=== PATIENT | male | born 1965 | race Caucasian/White ===

== ENCOUNTER → 2020-08-18 13:16 | Outpatient (BNVA) | payer MEDICARE, MEDICAID, SELFPAY | PROVIDERS: PCP Pediatrics; Referring Provider Internal Medicine; Visit Provider Internal Medicine | DX: E05.00 Thyrotoxicosis with diffuse goiter without thyrotoxic crisis or storm (principal); I10 Essential (primary) hypertension; M25.472 Effusion, left ankle | CPT/HCPCS: 99204 ==

== ENCOUNTER 2020-08-19 12:06 | Outpatient (CLI) | payer MEDICARE, MEDICAID, SELFPAY ==
--- NOTE | 2020-08-19 13:30 | USCV_ITS ---
Matthew Barrios Age: 55 Gender: M : 1965 Exam Date: 08/19/2020 12:11 Ordering Phys: Laverne Mcpherson MD Technologist: Bethany Crump [place] [facility] [place]: edema BP: / HR: 63 Rhythm: Sinus Technical Quality: Adequate MEASUREMENTS (Male / Female) Normal Values 2D ECHO LV Diastolic Diameter PLAX 4.7 cm 4.2 - 5.9 / 3.9 - 5.3 cm LV Systolic Diameter PLAX 3.1 cm IVS Diastolic Thickness 1.1 cm 0.6 - 1.0 / 0.6 - 0.9 cm IVS Systolic Thickness 1.7 cm LVPW Diastolic Thickness 0.8 cm 0.6 - 1.0 / 0.6 - 0.9 cm LVPW Systolic Thickness 1.5 cm LVOT Diameter 2.0 cm LV Ejection Fraction 2D Teich 62.3 % LV Ejection Fraction MOD 2C 66.9 % LV Ejection Fraction 2C AL 69.1 % LA Diameter 3.5 cm LA Width 2.9 cm LA Height 5.4 cm RA Width 3.4 cm RA Height 4.2 cm M-MODE LV Diastolic Diameter MM 4.9 cm 4.2 - 5.9 / 3.9 - 5.3 cm LV Systolic Diameter MM 3.4 cm LV Ejection Fraction MM Teich 57.2 % IVS Diastolic Thickness MM 0.5 cm 0.6 - 1.0 / 0.6 - 0.9 cm IVS Systolic Thickness MM 0.8 cm LVPW Diastolic Thickness MM 0.8 cm 0.6 - 1.0 / 0.6 - 0.9 cm LVPW Systolic Thickness MM 1.3 cm Aortic Annulus Diameter 2.4 cm LA Ao Ratio MM 1.6 MV E Point Septal Separation 0.3 cm DOPPLER AV Peak Velocity 196.0 cm/s LVOT Peak Velocity 105.0 cm/s AV Area Cont Eq vti 1.9 cm squared AV Area Cont Eq pk 1.7 cm squared MV Peak Velocity 98.0 cm/s MV Area PHT 3.3 cm squared Mitral E to A Ratio 1.1 MV E' Velocity 50.0 cm/s Mitral E to MV E' Ratio 12.6 Mitral E to LV E' Lateral Ratio 11.6 Mitral E to LV E' Septal Ratio 13.9 TR Peak Velocity 106.3 cm/s TR Peak Gradient 4.5 mmHg Right Atrial Pressure 3.0 mmHg Pulmonary Artery Systolic Pressu 7.5 mmHg PV Peak Velocity 87.3 cm/s RV Acceleration Time 0.1 s FINDINGS Left Ventricle Normal left ventricular cavity size. Normal left ventricular systolic function. No regional wall motion abnormalities. Left ventricular ejection fraction is estimated at 57 %. Normal diastolic function. Right Ventricle The right ventricle is normal in size and function. Right Atrium The right atrium is normal in size. Left Atrium The left atrium is normal in size. Mitral Valve Structurally normal mitral valve without significant stenosis or prolapse. There is no mitral regurgitation. Aortic Valve Severe aortic valve calcification. Moderate aortic valve stenosis, mean gradient 7.6 mmHg, LYUDMILA 1.9 cm squared. Trace aortic valve regurgitation. Tricuspid Valve Structurally normal tricuspid valve without significant stenosis or regurgitation. Pulmonary artery systolic pressure is normal. Pulmonic Valve Structurally normal pulmonic valve without significant stenosis. There is no pulmonic regurgitation. Pericardium Normal pericardium without effusion. Aorta Normal ascending aorta dimension. CONCLUSIONS 1-Normal left ventricular cavity size. Normal left ventricular systolic function. No regional wall motion abnormalities. Left ventricular ejection fraction is estimated at 57 %. Normal diastolic function. 2-Severe aortic valve calcification. Moderate aortic valve stenosis, mean gradient 7.6 mmHg, LYUDMILA 1.9 cm squared. Trace aortic valve regurgitation. 3-There is no pericardial effusion. 4-Pulmonary artery systolic pressure is within normal limits. 5-Right atrial pressure is around 5 mm of mercury. 6-Due to suboptimal image quality cannot compare it with prior study. Mitzi Hoffman MD (Electronically Signed) Final Date: 19 August 2020 17:33 S
== END 2020-08-19 12:07 | disposition home or self-care (01) ==
LOC: US 12:08
PROVIDERS: PCP Pediatrics; Visit Provider Internal Medicine
DX: R60.9 Edema, unspecified (principal); I35.0 Nonrheumatic aortic (valve) stenosis
CPT/HCPCS: 93306

== ENCOUNTER → 2020-10-05 09:13 | Outpatient (BNVA) | payer MEDICARE, MEDICAID, SELFPAY | PROVIDERS: PCP Pediatrics; Visit Provider Podiatrist Foot & Ankle Surgery | DX: M79.672 Pain in left foot (principal); I73.9 Peripheral vascular disease, unspecified | CPT/HCPCS: 73630 ==

== ENCOUNTER 2020-10-12 13:08 | Outpatient (CLI) | payer MEDICARE, MEDICAID, SELFPAY | END 2020-10-12 13:09 | disposition home or self-care (01) | LOC: WOUND 13:09 | PROVIDERS: PCP Pediatrics; Visit Provider Nurse Practitioner Family | DX: E11.621 Type 2 diabetes mellitus with foot ulcer (principal); L97.522 Non-pressure chronic ulcer of other part of left foot with fat layer exposed | CPT/HCPCS: 11042; 99214; L3260 ==

== ENCOUNTER 2020-10-19 08:45 | Outpatient (CLI) | payer MEDICARE, MEDICAID, SELFPAY | END 2020-10-19 08:46 | disposition home or self-care (01) | LOC: WOUND 08:46 | PROVIDERS: PCP Pediatrics; Visit Provider Nurse Practitioner Family | DX: E11.621 Type 2 diabetes mellitus with foot ulcer (principal); L97.522 Non-pressure chronic ulcer of other part of left foot with fat layer exposed | CPT/HCPCS: 11042 ==

== ENCOUNTER 2020-10-24 09:19 | Outpatient (CLI) | payer MEDICARE, MEDICAID, SELFPAY ==
--- NOTE | 2020-10-24 10:15 | USCV_ITS ---
Matthew Barrios Age: 55 Gender: M : 1965 Exam Date: 10/24/2020 09:51 Ordering Phys: Augie Andrade DPM Technologist: Krys Davis Exam Location: [facility] [place] Indication: HISTORY: DM TYPE 1. NON HEALING ULCER LT FOOT. RT LOWER LEG AMPUTATION PROCEDURES: The venous duplex Doppler examination of both lower extremities was performed in the standard fashion. The following venous structures were evaluated on the right leg. Rt CFV, Rt FV. Also the Rt. GSV was studied for reflux. The following venous structures were evaluated on the lt leg: Lt CGV, Rt. FV, Rt POP ,and Rt PTVs. The Lt GSP and Lt SSV were examined for reflux FINDINGS: Rt leg has BK amputation. No reflux seen in any vessel examined Echolucent areas in the subcutaneous tissue at the below-knee region on the left side CONCLUSIONS 1. No significant venous reflux either in the deep or superficial veins examined as above 2. No evidence of DVT. 3. Venous dimensions and the depth from the surface are as mentioned above. 4. Patient had below-knee amputation on the right side Dr James Woodall MD [facility] (Electronically Signed) Final Date: 24 October 2020 14:24 S
== END 2020-10-24 09:20 | disposition home or self-care (01) ==
LOC: RAD 09:22
PROVIDERS: PCP Pediatrics; Visit Provider Podiatrist Foot & Ankle Surgery
DX: I73.9 Peripheral vascular disease, unspecified (principal); L97.522 Non-pressure chronic ulcer of other part of left foot with fat layer exposed; Z89.511 Acquired absence of right leg below knee
CPT/HCPCS: 93970

== ENCOUNTER 2020-10-26 10:20 | Outpatient (CLI) | payer MEDICARE, MEDICAID, SELFPAY | END 2020-10-26 10:21 | disposition home or self-care (01) | LOC: WOUND 10:25 | PROVIDERS: PCP Pediatrics; Visit Provider Thoracic Surgery (Cardiothoracic Vascular Surgery) | DX: E11.621 Type 2 diabetes mellitus with foot ulcer (principal); L97.522 Non-pressure chronic ulcer of other part of left foot with fat layer exposed | CPT/HCPCS: G0463 ==

== ENCOUNTER 2020-10-27 10:25 | Outpatient (CLI) | payer MEDICARE, MEDICAID, SELFPAY ==
--- NOTE | 2020-10-27 11:15 | USCV_ITS ---
Matthew Barrios Age: 55 Gender: M : 1965 Exam Date: 10/27/2020 10:34 Ordering Phys: Augie Andrade DPM Technologist: Exam Location: [facility] [place] Indication: PAD RIGHT LEFT Brachial 165.00 mmHg Brachial 165.00 mmHg Pressure (mmHg) Waveform Pressure (mmHg) Waveform INCLUSION INTERN 97.00 DPA 49.00 Ankle/Brachial Index 0.59 Pre-Exercise Toe Pressure 49.00 Pre-Exercise Toe/Brachial Index 0.30 FINDINGS Right leg amputee Abnormal resting BOBO and TBI on the left side, 0.59 and 0.30 respectively. PVR waveforms showing loss of dicrotic notch CONCLUSIONS Features of moderate peripheral arterial disease on the left side with a resting BOBO of 0.59 and a TBI of 0.30 No similar previous studies are available for comparison Dr James Woodall MD [facility] (Electronically Signed) Final Date: 28 October 2020 14:08 S
== END 2020-10-27 10:26 | disposition home or self-care (01) ==
LOC: RAD 10:32
PROVIDERS: PCP Pediatrics; Visit Provider Podiatrist Foot & Ankle Surgery
DX: I73.9 Peripheral vascular disease, unspecified (principal)
CPT/HCPCS: 93923

== ENCOUNTER 2020-11-02 09:15 | Outpatient (CLI) | payer MEDICARE, MEDICAID, SELFPAY | END 2020-11-02 09:16 | disposition home or self-care (01) | LOC: WOUND 09:15 | PROVIDERS: PCP Pediatrics; Visit Provider Thoracic Surgery (Cardiothoracic Vascular Surgery) | DX: E11.621 Type 2 diabetes mellitus with foot ulcer (principal); L97.522 Non-pressure chronic ulcer of other part of left foot with fat layer exposed | CPT/HCPCS: 11042 ==

== ENCOUNTER 2020-11-09 08:55 | Outpatient (CLI) | payer MEDICARE, MEDICAID, SELFPAY | END 2020-11-09 08:56 | disposition home or self-care (01) | LOC: WOUND 08:58 | PROVIDERS: PCP Pediatrics; Visit Provider Thoracic Surgery (Cardiothoracic Vascular Surgery) | DX: E11.621 Type 2 diabetes mellitus with foot ulcer (principal); L97.522 Non-pressure chronic ulcer of other part of left foot with fat layer exposed | CPT/HCPCS: 11042 ==

== ENCOUNTER 2020-11-16 08:57 | Outpatient (CLI) | payer MEDICARE, MEDICAID, SELFPAY ==
[2020-11-16 09:46] VITALS: BMI 32.8
--- NOTE | 2020-11-16 10:40 | ECG_ITS ---
[facility] Test Date: 2020-11-16 Pat Name: Matthew Barrios Department: Room: Gender: Male Surg Nurse: : 1965 Requested By: Nader Fu Order Number: [id number] Yuliana MD: Nader Fu M.D. Interpretive Statements NAME OF STUDY: LEXISCAN SESTAMIBI STRESS TEST INDICATION: [Chest Pain, ] Procedure: At the baseline, the blood pressure was 151/70 mmHg, heart rate of 70 bpm. The electrocardiogram showed normal sinus rhythm, left axis deviation with normal ST and T's. The Lexiscan was infused over a duration of 20 seconds. A total of 0.4 mg of Lexiscan was infused. The stress phase was continued for a total of 5 minutes. Heart rate at the end of the stress phase was 79 bpm. Blood pressure was 157/62 mmHg. The EKG at peak infusion revealed sinus rhythm with no significant ST-T wave changes. Sestamibi was injected 20 seconds after the Lexiscan infusion. Blood pressure at the end of recovery phase was 163/91 mmHg with a heart rate of 77 bpm. EKG remained unchanged. Conclusion: 1. Normal EKG response to Lexiscan infusion. 2. No Lexiscan induced chest pain or cardiac arrhythmia. 3. Normal blood pressure and heart rate response. 4. Sestamibi/sestamibi perfusion scan pending; see separate report. Electronically Signed On 11-27-2020 13:49:06 [employer] CONSERVATION TEACHER by Nader Fu M.D. [id number]
--- NOTE | 2020-11-16 10:40 | NMCV_ITS ---
NM sherrie perf SPECT r/s* [id number] BarriosMatthew arango Age: 55 Gender: M : 1965 Exam Date: 11/16/2020 10:40 Ordering Phys: Nader Fu M.D ([email or web address]) Technologist: SHANNAN Jiménez Exam Location: [facility] Indications: CHEST PAIN STRESS TEST Please see separate stress test [facility] for full findings IMAGE PROTOCOL Rest/Stress 1 Lexiscan Day Radiopharmaceutical Dose (mCi) Administration Site Administered by Rest: Tc-99m 10.9 IV SHANNAN Jiménez Sestamibi Stress:Tc-99m 32.7 IV SHANNAN Walters Sestamibi Rest: 16-Nov-2020 60 Discovery 630 Stress: 16-Nov-2020 30 Discovery 630 0.4mg Lexiscan. Supine position only as patient was unable to lay prone. SPECT RESULTS Technical Quality: Excellent Raw Data Analysis: Normal Image Corrections: No attenuation or motion correction applied Summed Stress Score: 0 Summed Rest Score: 0 Summed Difference Score: 0 PERFUSION FINDINGS Small in size, mild in intensity reversible perfusion defect in inferior wall is seen. This represents ischemia and inferior wall. FUNCTIONAL RESULTS (calculated via Gated SPECT) Stress Image LV EF (%): 74 Stress EDV (mL):80 TID: 1 Stress ESV (mL):21 FUNCTIONAL FINDINGS: There is normal left ventricular systolic function. IMPRESSIONS 1. There is a small in size, mild in intensity reversible perfusion defect of inferior wall. This likely represents a small area of ischemia in RCA territory. 2. LV systolic function is normal. Nader Fu MD (Electronically Signed) Final Date: 16 November 2020 14:07 S
[2020-11-16 11:39] VITALS: BP 163/91; PULSE 77
== END 2020-11-16 08:58 | disposition home or self-care (01) ==
LOC: RAD 09:01 → CDL 09:46
PROVIDERS: PCP Pediatrics; Visit Provider Internal Medicine
DX: R07.9 Chest pain, unspecified (principal)
CPT/HCPCS: 78452; 93017; A9500

== ENCOUNTER 2020-11-23 10:28 | Outpatient (CLI) | payer MEDICARE, MEDICAID, SELFPAY | END 2020-11-23 10:29 | disposition home or self-care (01) | LOC: WOUND 10:29 | PROVIDERS: PCP Pediatrics; Visit Provider Thoracic Surgery (Cardiothoracic Vascular Surgery) | DX: E11.621 Type 2 diabetes mellitus with foot ulcer (principal); L97.522 Non-pressure chronic ulcer of other part of left foot with fat layer exposed | CPT/HCPCS: 11042 ==

== ENCOUNTER 2020-12-14 10:17 | Outpatient (CLI) | payer MEDICARE, MEDICAID, SELFPAY | END 2020-12-14 10:18 | disposition home or self-care (01) | LOC: WOUND 10:18 | PROVIDERS: PCP Pediatrics; Visit Provider Thoracic Surgery (Cardiothoracic Vascular Surgery) | DX: E11.621 Type 2 diabetes mellitus with foot ulcer (principal); L97.522 Non-pressure chronic ulcer of other part of left foot with fat layer exposed | CPT/HCPCS: 11042 ==

== ENCOUNTER 2020-12-21 10:23 | Outpatient (CLI) | payer MEDICARE, MEDICAID, SELFPAY | END 2020-12-21 10:24 | disposition home or self-care (01) | LOC: WOUND 10:25 | PROVIDERS: PCP Pediatrics; Visit Provider Thoracic Surgery (Cardiothoracic Vascular Surgery) | DX: E11.621 Type 2 diabetes mellitus with foot ulcer (principal); L97.522 Non-pressure chronic ulcer of other part of left foot with fat layer exposed | CPT/HCPCS: 11042 ==

== ENCOUNTER 2020-12-28 09:37 | Outpatient (CLI) | payer MEDICARE, MEDICAID, SELFPAY | END 2020-12-28 09:38 | disposition home or self-care (01) | LOC: WOUND 09:38 | PROVIDERS: PCP Pediatrics; Visit Provider Thoracic Surgery (Cardiothoracic Vascular Surgery) | DX: E11.621 Type 2 diabetes mellitus with foot ulcer (principal); L97.522 Non-pressure chronic ulcer of other part of left foot with fat layer exposed | CPT/HCPCS: 11042 ==

== ENCOUNTER 2021-01-11 09:00 | Outpatient (CLI) | payer MEDICARE, MEDICAID, SELFPAY | END 2021-01-11 09:01 | disposition home or self-care (01) | LOC: WOUND 09:05 | PROVIDERS: PCP Pediatrics; Visit Provider Thoracic Surgery (Cardiothoracic Vascular Surgery) | DX: E11.621 Type 2 diabetes mellitus with foot ulcer (principal); L97.522 Non-pressure chronic ulcer of other part of left foot with fat layer exposed | CPT/HCPCS: 11042 ==

== ENCOUNTER 2021-01-18 08:17 | Outpatient (CLI) | payer MEDICARE, MEDICAID, SELFPAY | END 2021-01-18 08:18 | disposition home or self-care (01) | LOC: WOUND 08:19 | PROVIDERS: PCP Pediatrics; Visit Provider Thoracic Surgery (Cardiothoracic Vascular Surgery) | DX: E11.621 Type 2 diabetes mellitus with foot ulcer (principal); L97.522 Non-pressure chronic ulcer of other part of left foot with fat layer exposed | CPT/HCPCS: 11042 ==

== ENCOUNTER 2021-01-25 09:32 | Outpatient (RCR) | payer MEDICARE, MEDICAID, SELFPAY | END 2021-02-17 23:59 | disposition home or self-care (01) | LOC: WOUND 09:32 | PROVIDERS: PCP Pediatrics; Visit Provider Thoracic Surgery (Cardiothoracic Vascular Surgery) | DX: E11.621 Type 2 diabetes mellitus with foot ulcer (principal); L97.522 Non-pressure chronic ulcer of other part of left foot with fat layer exposed; E11.622 Type 2 diabetes mellitus with other skin ulcer; L97.822 Non-pressure chronic ulcer of other part of left lower leg with fat layer exposed | CPT/HCPCS: 11042 ==

== ENCOUNTER 2021-02-01 08:08 | Outpatient (CLI) | payer MEDICARE, MEDICAID, SELFPAY | END 2021-02-01 08:09 | disposition home or self-care (01) | LOC: WOUND 08:09 | PROVIDERS: PCP Pediatrics; Visit Provider Nurse Practitioner Family | DX: E11.621 Type 2 diabetes mellitus with foot ulcer (principal); L97.522 Non-pressure chronic ulcer of other part of left foot with fat layer exposed; E11.622 Type 2 diabetes mellitus with other skin ulcer; L97.822 Non-pressure chronic ulcer of other part of left lower leg with fat layer exposed | CPT/HCPCS: 11042 ==

== ENCOUNTER 2021-02-15 10:10 | Outpatient (CLI) | payer MEDICARE, MEDICAID, SELFPAY | END 2021-02-15 10:11 | disposition home or self-care (01) | LOC: WOUND 10:11 | PROVIDERS: PCP Pediatrics; Visit Provider Thoracic Surgery (Cardiothoracic Vascular Surgery) | DX: E11.621 Type 2 diabetes mellitus with foot ulcer (principal); L97.522 Non-pressure chronic ulcer of other part of left foot with fat layer exposed; E11.622 Type 2 diabetes mellitus with other skin ulcer; L97.822 Non-pressure chronic ulcer of other part of left lower leg with fat layer exposed | CPT/HCPCS: 11042 ==

== ENCOUNTER 2021-02-22 10:07 | Outpatient (CLI) | payer MEDICARE, MEDICAID, SELFPAY | END 2021-02-22 10:08 | disposition home or self-care (01) | LOC: WOUND 10:09 | PROVIDERS: PCP Pediatrics; Visit Provider Thoracic Surgery (Cardiothoracic Vascular Surgery) | DX: E11.621 Type 2 diabetes mellitus with foot ulcer (principal); L97.522 Non-pressure chronic ulcer of other part of left foot with fat layer exposed; E11.622 Type 2 diabetes mellitus with other skin ulcer; L97.822 Non-pressure chronic ulcer of other part of left lower leg with fat layer exposed | CPT/HCPCS: 11042 ==

== ENCOUNTER 2021-03-01 09:09 | Outpatient (CLI) | payer MEDICARE, MEDICAID, SELFPAY | END 2021-03-01 09:10 | disposition home or self-care (01) | LOC: WOUND 09:10 | PROVIDERS: PCP Pediatrics; Visit Provider Thoracic Surgery (Cardiothoracic Vascular Surgery) | DX: E11.621 Type 2 diabetes mellitus with foot ulcer (principal); L97.521 Non-pressure chronic ulcer of other part of left foot limited to breakdown of skin; E11.622 Type 2 diabetes mellitus with other skin ulcer; L97.821 Non-pressure chronic ulcer of other part of left lower leg limited to breakdown of skin | CPT/HCPCS: 97597 ==

== ENCOUNTER 2021-03-08 09:03 | Outpatient (CLI) | payer MEDICARE, MEDICAID, SELFPAY | END 2021-03-08 09:04 | disposition home or self-care (01) | LOC: WOUND 09:05 | PROVIDERS: PCP Pediatrics; Visit Provider Thoracic Surgery (Cardiothoracic Vascular Surgery) | DX: E11.621 Type 2 diabetes mellitus with foot ulcer (principal); L97.522 Non-pressure chronic ulcer of other part of left foot with fat layer exposed; E11.622 Type 2 diabetes mellitus with other skin ulcer; L97.822 Non-pressure chronic ulcer of other part of left lower leg with fat layer exposed | CPT/HCPCS: 97597 ==

== ENCOUNTER 2021-03-15 09:39 | Outpatient (CLI) | payer MEDICARE, MEDICAID, SELFPAY | END 2021-03-15 09:40 | disposition home or self-care (01) | LOC: WOUND 09:40 | PROVIDERS: PCP Pediatrics; Visit Provider Thoracic Surgery (Cardiothoracic Vascular Surgery) | DX: E11.621 Type 2 diabetes mellitus with foot ulcer (principal); L97.521 Non-pressure chronic ulcer of other part of left foot limited to breakdown of skin; E11.622 Type 2 diabetes mellitus with other skin ulcer; L97.821 Non-pressure chronic ulcer of other part of left lower leg limited to breakdown of skin | CPT/HCPCS: 11042; 11045 ==

== ENCOUNTER 2021-03-29 09:11 | Outpatient (CLI) | payer MEDICARE, MEDICAID, SELFPAY | END 2021-03-29 09:12 | disposition home or self-care (01) | LOC: WOUND 09:13 | PROVIDERS: PCP Pediatrics; Visit Provider Thoracic Surgery (Cardiothoracic Vascular Surgery) | DX: E11.621 Type 2 diabetes mellitus with foot ulcer (principal); L97.522 Non-pressure chronic ulcer of other part of left foot with fat layer exposed | CPT/HCPCS: 11042 ==

== ENCOUNTER 2021-04-12 09:07 | Outpatient (CLI) | payer MEDICARE, MEDICAID, SELFPAY | END 2021-04-12 09:08 | disposition home or self-care (01) | LOC: WOUND 09:08 | PROVIDERS: PCP Pediatrics; Visit Provider Thoracic Surgery (Cardiothoracic Vascular Surgery) | DX: E11.621 Type 2 diabetes mellitus with foot ulcer (principal); L97.522 Non-pressure chronic ulcer of other part of left foot with fat layer exposed; E11.622 Type 2 diabetes mellitus with other skin ulcer; L97.821 Non-pressure chronic ulcer of other part of left lower leg limited to breakdown of skin | CPT/HCPCS: 11042; 97597 ==

== ENCOUNTER 2021-04-26 08:59 | Outpatient (CLI) | payer MEDICARE, MEDICAID, SELFPAY | END 2021-04-26 09:00 | disposition home or self-care (01) | LOC: WOUND 09:00 | PROVIDERS: PCP Pediatrics; Visit Provider Nurse Practitioner Family | DX: E11.621 Type 2 diabetes mellitus with foot ulcer (principal); L97.521 Non-pressure chronic ulcer of other part of left foot limited to breakdown of skin | CPT/HCPCS: 11042 ==

== ENCOUNTER 2021-05-10 09:37 | Outpatient (CLI) | payer MEDICARE, MEDICAID, SELFPAY | END 2021-05-10 09:38 | disposition home or self-care (01) | LOC: WOUND 09:39 | PROVIDERS: PCP Pediatrics; Visit Provider Thoracic Surgery (Cardiothoracic Vascular Surgery) | DX: E11.621 Type 2 diabetes mellitus with foot ulcer (principal); L97.522 Non-pressure chronic ulcer of other part of left foot with fat layer exposed | CPT/HCPCS: 11042 ==

== ENCOUNTER 2021-05-24 10:43 | Outpatient (CLI) | payer MEDICARE, MEDICAID, SELFPAY | END 2021-05-24 10:44 | disposition home or self-care (01) | LOC: WOUND 10:44 | PROVIDERS: PCP Pediatrics; Visit Provider Thoracic Surgery (Cardiothoracic Vascular Surgery) | DX: E11.621 Type 2 diabetes mellitus with foot ulcer (principal); L97.521 Non-pressure chronic ulcer of other part of left foot limited to breakdown of skin | CPT/HCPCS: 97597 ==

== ENCOUNTER 2021-06-07 09:34 | Outpatient (CLI) | payer MEDICARE, MEDICAID, SELFPAY | END 2021-06-07 09:35 | disposition home or self-care (01) | LOC: WOUND 09:36 | PROVIDERS: PCP Pediatrics; Visit Provider Thoracic Surgery (Cardiothoracic Vascular Surgery) | DX: E11.621 Type 2 diabetes mellitus with foot ulcer (principal); L97.521 Non-pressure chronic ulcer of other part of left foot limited to breakdown of skin | CPT/HCPCS: 97597 ==

== ENCOUNTER 2021-06-21 09:25 | Outpatient (CLI) | payer MEDICARE, MEDICAID, SELFPAY | END 2021-06-21 09:26 | disposition home or self-care (01) | LOC: WOUND 09:27 | PROVIDERS: PCP Pediatrics; Visit Provider Thoracic Surgery (Cardiothoracic Vascular Surgery) | DX: E11.621 Type 2 diabetes mellitus with foot ulcer (principal); L97.521 Non-pressure chronic ulcer of other part of left foot limited to breakdown of skin | CPT/HCPCS: 97597 ==

== ENCOUNTER 2021-07-05 09:42 | Outpatient (CLI) | payer MEDICARE, MEDICAID, SELFPAY | END 2021-07-05 09:43 | disposition home or self-care (01) | LOC: WOUND 09:43 | PROVIDERS: PCP Pediatrics; Visit Provider Nurse Practitioner Family | DX: E11.621 Type 2 diabetes mellitus with foot ulcer (principal); L97.529 Non-pressure chronic ulcer of other part of left foot with unspecified severity; E11.622 Type 2 diabetes mellitus with other skin ulcer; L97.821 Non-pressure chronic ulcer of other part of left lower leg limited to breakdown of skin | CPT/HCPCS: 11042; 11045 ==

== ENCOUNTER 2021-07-19 09:38 | Outpatient (CLI) | payer MEDICARE, MEDICAID, SELFPAY | END 2021-07-19 09:39 | disposition home or self-care (01) | LOC: WOUND 09:39 | PROVIDERS: PCP Pediatrics; Visit Provider Thoracic Surgery (Cardiothoracic Vascular Surgery) | DX: E11.621 Type 2 diabetes mellitus with foot ulcer (principal); L97.521 Non-pressure chronic ulcer of other part of left foot limited to breakdown of skin; E11.622 Type 2 diabetes mellitus with other skin ulcer; L97.821 Non-pressure chronic ulcer of other part of left lower leg limited to breakdown of skin | CPT/HCPCS: 97597; 97598 ==

== ENCOUNTER 2021-08-02 09:07 | Outpatient (CLI) | payer MEDICARE, MEDICAID, SELFPAY | END 2021-08-02 09:08 | disposition home or self-care (01) | LOC: WOUND 09:08 | PROVIDERS: PCP Pediatrics; Visit Provider Thoracic Surgery (Cardiothoracic Vascular Surgery) | DX: E11.621 Type 2 diabetes mellitus with foot ulcer (principal); L97.521 Non-pressure chronic ulcer of other part of left foot limited to breakdown of skin; E11.622 Type 2 diabetes mellitus with other skin ulcer; L97.821 Non-pressure chronic ulcer of other part of left lower leg limited to breakdown of skin | CPT/HCPCS: 97597 ==

== ENCOUNTER 2021-08-16 09:36 | Outpatient (CLI) | payer MEDICARE, MEDICAID, SELFPAY | END 2021-08-16 09:37 | disposition home or self-care (01) | LOC: WOUND 09:38 | PROVIDERS: PCP Pediatrics; Visit Provider Thoracic Surgery (Cardiothoracic Vascular Surgery) | DX: E11.621 Type 2 diabetes mellitus with foot ulcer (principal); L97.521 Non-pressure chronic ulcer of other part of left foot limited to breakdown of skin; E11.622 Type 2 diabetes mellitus with other skin ulcer; L97.821 Non-pressure chronic ulcer of other part of left lower leg limited to breakdown of skin; L97.321 Non-pressure chronic ulcer of left ankle limited to breakdown of skin | CPT/HCPCS: 97597 ==

== ENCOUNTER 2021-08-30 09:09 | Outpatient (CLI) | payer MEDICARE, MEDICAID, SELFPAY | END 2021-08-30 09:10 | disposition home or self-care (01) | LOC: WOUND 09:10 | PROVIDERS: PCP Pediatrics; Visit Provider Thoracic Surgery (Cardiothoracic Vascular Surgery) | DX: E11.621 Type 2 diabetes mellitus with foot ulcer (principal); L97.521 Non-pressure chronic ulcer of other part of left foot limited to breakdown of skin; E11.622 Type 2 diabetes mellitus with other skin ulcer; L97.821 Non-pressure chronic ulcer of other part of left lower leg limited to breakdown of skin; L97.329 Non-pressure chronic ulcer of left ankle with unspecified severity | CPT/HCPCS: 97597; 97598 ==

== ENCOUNTER 2021-09-13 10:00 | Outpatient (CLI) | payer MEDICARE, MEDICAID, SELFPAY | END 2021-09-13 10:01 | disposition home or self-care (01) | LOC: WOUND 10:02 | PROVIDERS: PCP Pediatrics; Visit Provider Nurse Practitioner Family | DX: I96 Gangrene, not elsewhere classified (principal); E11.621 Type 2 diabetes mellitus with foot ulcer; L97.522 Non-pressure chronic ulcer of other part of left foot with fat layer exposed; S90.512A Abrasion, left ankle, initial encounter; X58.XXXA Exposure to other specified factors, initial encounter | CPT/HCPCS: G0463 ==

== ENCOUNTER 2021-09-27 11:42 | Outpatient (CLI) | payer MEDICARE, MEDICAID, SELFPAY | END 2021-09-27 11:43 | disposition home or self-care (01) | LOC: WOUND 11:43 | PROVIDERS: PCP Pediatrics; Visit Provider Thoracic Surgery (Cardiothoracic Vascular Surgery) | DX: E11.621 Type 2 diabetes mellitus with foot ulcer (principal); L97.521 Non-pressure chronic ulcer of other part of left foot limited to breakdown of skin; S90.512A Abrasion, left ankle, initial encounter; X58.XXXA Exposure to other specified factors, initial encounter | CPT/HCPCS: 97597; 97598 ==

== ENCOUNTER 2021-10-11 10:22 | Outpatient (CLI) | payer MEDICARE, MEDICAID, SELFPAY | END 2021-10-11 10:23 | disposition home or self-care (01) | LOC: WOUND 10:23 | PROVIDERS: PCP Pediatrics; Visit Provider Nurse Practitioner Family | DX: I96 Gangrene, not elsewhere classified (principal); E11.621 Type 2 diabetes mellitus with foot ulcer; L97.512 Non-pressure chronic ulcer of other part of right foot with fat layer exposed; S90.512A Abrasion, left ankle, initial encounter; X58.XXXA Exposure to other specified factors, initial encounter | CPT/HCPCS: 99214; A6197 ==

== ENCOUNTER 2021-10-25 09:33 | Outpatient (CLI) | payer MEDICARE, MEDICAID, SELFPAY | END 2021-10-25 09:34 | disposition home or self-care (01) | LOC: WOUND 09:34 | PROVIDERS: PCP Pediatrics; Visit Provider Thoracic Surgery (Cardiothoracic Vascular Surgery) | DX: I96 Gangrene, not elsewhere classified (principal); E11.621 Type 2 diabetes mellitus with foot ulcer; L97.521 Non-pressure chronic ulcer of other part of left foot limited to breakdown of skin; S90.512A Abrasion, left ankle, initial encounter; X58.XXXA Exposure to other specified factors, initial encounter | CPT/HCPCS: 97597; 97598 ==

== ENCOUNTER 2021-11-08 10:13 | Outpatient (CLI) | payer MEDICARE, MEDICAID, SELFPAY | END 2021-11-08 10:14 | disposition home or self-care (01) | LOC: WOUND 10:14 | PROVIDERS: PCP Pediatrics; Visit Provider Nurse Practitioner Family | DX: I96 Gangrene, not elsewhere classified (principal); E11.621 Type 2 diabetes mellitus with foot ulcer; L97.529 Non-pressure chronic ulcer of other part of left foot with unspecified severity; S90.512A Abrasion, left ankle, initial encounter; X58.XXXA Exposure to other specified factors, initial encounter | CPT/HCPCS: 99214; A6197 ==

== ENCOUNTER 2021-12-06 10:04 | Outpatient (CLI) | payer MEDICARE, MEDICAID, SELFPAY | END 2021-12-06 10:05 | disposition home or self-care (01) | LOC: WNDACUTE 10:05 | PROVIDERS: PCP Pediatrics; Visit Provider Thoracic Surgery (Cardiothoracic Vascular Surgery) | DX: I96 Gangrene, not elsewhere classified (principal); E11.621 Type 2 diabetes mellitus with foot ulcer; L97.521 Non-pressure chronic ulcer of other part of left foot limited to breakdown of skin; S90.512A Abrasion, left ankle, initial encounter; S80.812A Abrasion, left lower leg, initial encounter; X58.XXXA Exposure to other specified factors, initial encounter | CPT/HCPCS: 97597; A6197 ==

== ENCOUNTER 2021-12-20 09:24 | Outpatient (CLI) | payer MEDICARE, MEDICAID, SELFPAY | END 2021-12-20 09:25 | disposition home or self-care (01) | LOC: WOUND 09:25 | PROVIDERS: PCP Pediatrics; Visit Provider Thoracic Surgery (Cardiothoracic Vascular Surgery) | DX: I96 Gangrene, not elsewhere classified (principal); E11.621 Type 2 diabetes mellitus with foot ulcer; L97.422 Non-pressure chronic ulcer of left heel and midfoot with fat layer exposed; L97.321 Non-pressure chronic ulcer of left ankle limited to breakdown of skin; Z09 Encounter for follow-up examination after completed treatment for conditions other than malignant neoplasm; S80.812A Abrasion, left lower leg, initial encounter; W50.4XXA Accidental scratch by another person, initial encounter | CPT/HCPCS: 97597; 97598; A6197; A6252 ==

== ENCOUNTER 2021-12-21 16:07 | Emergency (ER) | payer MEDICARE, MEDICAID, SELFPAY ==
[2021-12-21 16:50] VITALS: BP 155/76; PULSE 74; RESP 16; TEMP 36.4; O2SAT 97; BMI 29.0
--- NOTE | 2021-12-21 21:21 | XRR_ITS ---
PROCEDURE INFORMATION: Exam: XR Chest Exam date and time: 12/21/2021 9:21 PM Age: 56 years old Clinical indication: Cough TECHNIQUE: Imaging protocol: XR of the chest. Views: 1 view. COMPARISON: CR Chest 1 [place] [id number] 01/14/2019 2:55 PM FINDINGS: Lungs: Unremarkable. No consolidation. Pleural spaces: Unremarkable. No pleural effusion. No pneumothorax. Heart/Mediastinum: Unremarkable. No cardiomegaly. Bones/joints: Unremarkable. XR/XR chest 1V portable [id number] IMPRESSION: No acute findings.
[2021-12-21 21:23] VITALS: BP 172/73; PULSE 80; RESP 16; O2SAT 97
[2021-12-21] MEDS: sodium chloride 0.9% 1,000 ML 999 ML IV (21:25)
[2021-12-21] MEDS: ondansetron 2 mg/ML SDV 2 mL 4 MG IVP (21:27)
--- NOTE | 2021-12-21 21:27 | ED_ITS ---
HPI - Recheck/Abnormal Lab/Rx General: Chief Complaint: Recheck/Abnormal Lab/Rx Stated Complaint: Dilip wants fluid puched Dydrated Time Seen by Provider: 12/21/21 21:13 Source: patient Mode of arrival: ambulatory Limitations: no limitations History of Present Illness: 56-year-old male who states that he has a history of chronic kidney disease he saw his PCP and had labs drawn yesterday called him and told him that his creatinine was worsening and wanting to come up to get IV fluids he states that over the last month month a half has had a cough that causes him to have vomiting at times he is concerned he may be he dehydrated he still making urine denies any other complaints denies any pain anywhere. Review of Systems Const: Denies: fever(s), chills, body aches or change in appetite Eyes: Denies: blurry vision or eye discomfort ENMT: Denies: throat pain or dental pain Card: Denies: chest pain Resp: Reports: non-productive cough; Denies: dyspnea GI: Reports: vomiting; Denies: abdominal pain, nausea or diarrhea : Denies: dysuria Musc: Denies: neck pain or back pain Skin/Breast: Denies: rash Neuro: Denies: headache(s) Psych: Denies: depression Himanshu/Lymph: Denies: easy bruising All/Imm: Denies: urticaria PFSH ED PFSH: Medical History Chronic kidney disease Diabetes Graves disease History of tonsillitis Hypertension Surgical History History of amputation below knee History of cholecystectomy History of eye surgery History of knee surgery History of tonsillectomy and adenoidectomy Family History Grandmother Dementia Social History Smoking and tobacco status: former smoker Alcohol intake: never Physical Exam Const: COMMON NORMALS: no acute distress, patient oriented x3 and healthy appearing HENMT: COMMON NORMALS: normocephalic and atraumatic HEAD & SCALP: normocephalic and atraumatic Eye: COMMON NORMALS: Equal, round and reactive pupils present and EOMs intact bilaterally PUPIL: Yes Equal, round and reactive pupils present Neck/C-Spine: COMMON NORMALS: full ROM and supple Chest: COMMONS NORMALS: normal inspection of the chest and normal palpation of entire chest wall Resp: COMMON NORMALS: normal respiratory effort, No retractions, No use of accessory muscles and clear to auscultation bilaterally AUSCULTATION: clear to auscultation bilaterally Cardio: COMMON NORMALS: regular rate, regular rhythm and No murmurs present (Cardio) RATE: regular rate RHYTHM: regular rhythm GI: COMMON NORMALS: Normal to inspection, nondistended, normoactive bowel sounds present, Soft to palpation, non-tender and no masses PALPATION: Yes Soft to palpation Extremity: COMMON NORMALS: normal to inspection and full ROM Neuro: COMMON NORMALS: patient oriented x3, moves all extremities and no focal motor deficits Psych: COMMON NORMALS: mental status grossly normal, Normal thought process present and cooperative THOUGHT PROCESS: Normal thought process present Skin: COMMON NORMALS: no rashes or lesions noted and no wounds GENERAL SKIN EXAM: no rashes or lesions noted Course Vital Signs: Vital signs: Vital Signs Temperature 97.6 F 12/21/21 16:50 Pulse Rate 80 12/21/21 21:23 Respiratory Rate 16 12/21/21 21:23 Blood Pressure 172/73 12/21/21 21:23 Pulse Oximetry 97 12/21/21 21:23 MDM - Recheck/Abnormal Lab/Rx Medical Decision Making Patient presents here with chronic vomiting his abdominal exam here is benign blood works normal we will get him follow-up with surgery for this vomiting he is chronic kidney disease creatinine here is 4 not too far from his baseline he has no acidosis or hyperkalemia I 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 Cherry at [place] who will follow him up next week no changes in medicines at this time. Lab Data : 12/21/21 21:27 12/21/21 21:27 Radiology Impressions Chest X-Ray 12/21/21 21:21 IMPRESSION: No acute findings. Laboratory Results WBC 8.7 10^3/uL (4.0-10.0) 12/21/21 21:27 RBC 3.66 10^6/uL (4.1-5.3) L 12/21/21 21:27 Hgb 11.2 g/dL (11.7-16.6) L 12/21/21: Hct 35.3 % (42.0-52.0) L 12/21/21: MCV 96.4 fl (80-94) H 12/21/21: MCH 30.6 pg (28.0-34.0) 12/21/21: MCHC 31.7 g/dL (30.0-36.0) 12/21/21: RDW 14.5 % (12.1-15.1) 12/21/21: Plt Count 301 10^3/cmm (130-400) 12/21/21: MPV 9.5 fL (7.4-10.4) 12/21/21: Neut % (Auto) 70.4 % 12/21/21: Lymph % (Auto) 17.3 % 12/21/21: Pennington % (Auto) 8.3 % 12/21/21: Eos % (Auto) 3.1 % 12/21/21: Baso % (Auto) 0.6 % 12/21/21: Neut # (Auto) 6.11 10^3/uL (1.8-7.7) 12/21/21 Lymph # (Auto) 1.5 10^3/uL (0.8-4.8) 12/21/21: Pennington # (Auto) 0.7 10^3/uL (0.2-0.9) 12/21/21: Eos # (Auto) 0.3 10^3/uL (0.0-0.8) 12/21/21: Baso # (Auto) 0.1 10^3/uL (0.0-0.1) 12/21/21: Nucleated RBC % (auto) 0 % 12/21/21 Nucleated RBCs # 0.0 /100WBC 12/21/21: Sodium 138 mmol/L (136-145) 12/21/21: Potassium 4.2 mmol/L (3.5-5.1) 12/21/21: Chloride 103 mmol/L (98-107) 03/03/22 21:27 Carbon Dioxide 24 mmol/L (22-29) 12/21/21 21:27 Anion Gap 15.2 (5-19) 12/21/21 21:27 BUN 54 mg/dL (6-20) H 12/21/21 21:27 Creatinine 4.0 mg/dL (0.7-1.2) H 12/21/21 21:27 GFR Calculation 15.7 mL/min (90-130) L 12/21/21 21:27 Glucose 230 mg/dL (65-115) H 12/21/21 21:27 Calculated Osmolality 308 mOsm/kg (285-295) H 12/21/21 21: Calcium 8.4 mg/dL (8.5-10.5) L 12/21/21 21: Total Bilirubin 0.3 mg/dL (0.15-1.2) 12/21/21 21:27 AST 15 U/L (0-40) 12/21/21 21: ALT 11 U/L (0-41) 12/21/21 21: Alkaline Phosphatase 115 IU/L (40-130) 12/21/21 21: Total Protein 6.5 g/dL (6.6-8.7) L 12/21/21 21: Albumin 3.5 g/dL (3.5-5.2) 12/21/21 21: Globulin 3.0 g/dL (1.3-4.6) 12/21/21 21: Lipase 39 U/L (13-60) 12/21/21 21:27 Discharge Plan Discharge Patient Disposition: Home Clinical Impression: Chronic kidney disease, Vomiting Condition: Stable Prescriptions: New ondansetron 4 mg tablet,disintegrating 4 mg PO Q6H PRN (Reason: nausea and vomiting) Qty: 14 0RF No Action terazosin 5 mg capsule 5 mg PO DAILY 0RF amlodipine 10 mg tablet 10 mg PO DAILY 0RF tamsulosin [Flomax] 0.4 mg capsule 0.4 mg PO DAILY 0RF cyclobenzaprine 10 mg tablet 10 mg PO BID 0RF Humalog U-100 Insulin 100 unit/mL cartridge 5 unit SUBCUT TID 0RF Label Comments: Only a SS Lantus Solostar U-100 Insulin 100 unit/mL (3 mL) insulin pen 37 unit SUBCUT DAILY 0RF ferrous sulfate [FeroSul] 325 mg (65 mg iron) tablet 325 mg PO DAILY 0RF bumetanide 0.5 mg tablet 0.5 mg PO BID 0RF atorvastatin 80 mg tablet 80 mg PO DAILY 0RF amlodipine 10 mg tablet 10 mg PO DAILY 0RF metoprolol tartrate 100 mg tablet 100 mg PO DAILY 0RF methimazole 5 mg tablet 5 mg PO DAILY 30 Days Qty: 30 5RF Rx Instructions: 1 tablet Saturday-Saturday Discharge Orders: Discharge ED (Routine); Ordered 12/21/21 Ordered By: Phyllis Park Referrals: Siva Mcpherson MD [Primary Care Provider] - Matt Tabares MD [Physician] - 1-3 days Discharge Diet: Advance as tolerated Discharge Activity: Resume usual activity Patient Instructions: Acute Nausea and Vomiting (ED) Coding Level of Care Code ED Marketing Support Specialist for Gregorio Fwd Exam Comprehensive
[2021-12-21 21:31] LABS: Basophils # 0.1 10^3/uL (0.0-0.1); Basophils % 0.6 %; Eosinophils # 0.3 10^3/uL (0.0-0.8); Eosinophils % 3.1 %; Hematocrit 35.3 % (42.0-52.0); Hemoglobin 11.2 g/dL (11.7-16.6); Lymphocytes # 1.5 10^3/uL (0.8-4.8); Lymphocytes % 17.3 %; Mean Corpuscular HGB Conc 31.7 g/dL (30.0-36.0); Mean Corpuscular Hemoglobin 30.6 pg (28.0-34.0); Mean Corpuscular Volume 96.4 fl (80-94); Mean Platelet Volume 9.5 fL (7.4-10.4); Monocytes # 0.7 10^3/uL (0.2-0.9); Monocytes % 8.3 %; Neutrophils # 6.11 10^3/uL (1.8-7.7); Neutrophils % 70.4 %; Nucleated Red Blood Cells % 0 %; Platelet Count 301 10^3/cmm (130-400); Red Blood Count 3.66 10^6/uL (4.1-5.3); Red Cell Distribution Width 14.5 % (12.1-15.1); White Blood Count 8.7 10^3/uL (4.0-10.0)
[2021-12-21 21:50] LABS: Alanine Aminotransferase 11 U/L (0-41); Albumin Level 3.5 g/dL (3.5-5.2); Alkaline Phosphatase 115 IU/L (40-130); Anion Gap 15.2 (5-19); Aspartate Amino Transferase 15 U/L (0-40); Blood Urea Nitrogen 54 mg/dL (6-20); Calcium 8.4 mg/dL (8.5-10.5); Carbon Dioxide 24 mmol/L (22-29); Chloride 103 mmol/L (98-107); Glomerular Filtration Rate 15.7 mL/min (90-130); Glucose 230 mg/dL (65-115); Lipase 39 U/L (13-60); Osmolality Calculated 308 mOsm/kg (285-295); Potassium 4.2 mmol/L (3.5-5.1); Sodium 138 mmol/L (136-145); Total Bilirubin 0.3 mg/dL (0.15-1.2); Total Protein 6.5 g/dL (6.6-8.7)
[2021-12-21] MEDS: sodium chloride 0.9% 500 ML 999 ML IV (22:37)
[2021-12-21 23:20] VITALS: BP 174/68; PULSE 86; RESP 18; O2SAT 98
--- NOTE | 2021-12-22 09:15 | DCPLANNER ---
Addendum entered by Enedina Morfin 01/02/22 11:39: condominium property manager was notified that general surgery has tried to contact patient, has left several voicemail for patient. A letter has been sent to patient to call clinic when he wants to schedule a follow up appointment. Original Note: condominium property manager had message to schedule a follow up appointment for patient with general surgery. condominium property manager emailed patients information to Nickie Clemens and Angelica at [facility] General Surgery / ENT clinic. Patients information will be printed and reviewed. Clinic will call patient with appointment information.
== END 2021-12-21 23:22 | disposition home or self-care (01) ==
PROVIDERS: Emergency Provider Emergency Medicine; PCP Pediatrics
DX: R11.11 Vomiting without nausea (principal); E11.22 Type 2 diabetes mellitus with diabetic chronic kidney disease; I12.9 Hypertensive chronic kidney disease with stage 1 through stage 4 chronic kidney disease, or unspecified chronic kidney disease; N18.9 Chronic kidney disease, unspecified; Z79.4 Long term (current) use of insulin; Z89.519 Acquired absence of unspecified leg below knee; Z87.891 Personal history of nicotine dependence
CPT/HCPCS: 71045; 80053; 83690; 85025; 96361; 96374; 99284; J2405; J7030; J7040

== ENCOUNTER 2022-01-03 10:05 | Outpatient (CLI) | payer MEDICARE, MEDICAID, SELFPAY | END 2022-01-03 10:06 | disposition home or self-care (01) | LOC: WOUND 10:06 | PROVIDERS: PCP Pediatrics; Visit Provider Thoracic Surgery (Cardiothoracic Vascular Surgery) | DX: E11.621 Type 2 diabetes mellitus with foot ulcer (principal); L97.522 Non-pressure chronic ulcer of other part of left foot with fat layer exposed; L97.321 Non-pressure chronic ulcer of left ankle limited to breakdown of skin; L97.822 Non-pressure chronic ulcer of other part of left lower leg with fat layer exposed | CPT/HCPCS: 97597; 97598; A6197 ==

== ENCOUNTER → 2022-01-17 10:07 | Outpatient (BNVA) | payer MEDICARE, MEDICAID, SELFPAY | PROVIDERS: PCP Pediatrics; Visit Provider Thoracic Surgery (Cardiothoracic Vascular Surgery) | DX: E11.621 Type 2 diabetes mellitus with foot ulcer (principal); I96 Gangrene, not elsewhere classified; L97.522 Non-pressure chronic ulcer of other part of left foot with fat layer exposed; L97.321 Non-pressure chronic ulcer of left ankle limited to breakdown of skin; L97.822 Non-pressure chronic ulcer of other part of left lower leg with fat layer exposed | CPT/HCPCS: 97597; 97598; A6197 ==

== ENCOUNTER → 2022-01-31 08:16 | Outpatient (BNVA) | payer MEDICARE, MEDICAID, SELFPAY | PROVIDERS: PCP Pediatrics; Visit Provider Thoracic Surgery (Cardiothoracic Vascular Surgery) | DX: E11.621 Type 2 diabetes mellitus with foot ulcer (principal); I96 Gangrene, not elsewhere classified; L97.522 Non-pressure chronic ulcer of other part of left foot with fat layer exposed; L97.321 Non-pressure chronic ulcer of left ankle limited to breakdown of skin; L97.822 Non-pressure chronic ulcer of other part of left lower leg with fat layer exposed | CPT/HCPCS: 97597; 97598 ==

== ENCOUNTER → 2022-02-14 08:08 | Outpatient (BNVA) | payer MEDICARE, MEDICAID, SELFPAY | PROVIDERS: PCP Pediatrics; Visit Provider Thoracic Surgery (Cardiothoracic Vascular Surgery) | DX: E11.621 Type 2 diabetes mellitus with foot ulcer (principal); L97.422 Non-pressure chronic ulcer of left heel and midfoot with fat layer exposed; I96 Gangrene, not elsewhere classified; L97.321 Non-pressure chronic ulcer of left ankle limited to breakdown of skin; L97.822 Non-pressure chronic ulcer of other part of left lower leg with fat layer exposed | CPT/HCPCS: 97597; 97598; A6021; A6197 ==

== ENCOUNTER → 2022-02-28 10:10 | Outpatient (BNVA) | payer MEDICARE, MEDICAID, SELFPAY | PROVIDERS: PCP Pediatrics; Visit Provider Thoracic Surgery (Cardiothoracic Vascular Surgery) | DX: E11.621 Type 2 diabetes mellitus with foot ulcer (principal); L97.522 Non-pressure chronic ulcer of other part of left foot with fat layer exposed; I96 Gangrene, not elsewhere classified; L97.321 Non-pressure chronic ulcer of left ankle limited to breakdown of skin; L97.822 Non-pressure chronic ulcer of other part of left lower leg with fat layer exposed | CPT/HCPCS: 97597; 97598; A6197 ==

== ENCOUNTER → 2022-03-14 08:55 | Outpatient (BNVA) | payer MEDICARE, MEDICAID, SELFPAY | PROVIDERS: PCP Pediatrics; Visit Provider Thoracic Surgery (Cardiothoracic Vascular Surgery) | DX: E11.621 Type 2 diabetes mellitus with foot ulcer (principal); L97.522 Non-pressure chronic ulcer of other part of left foot with fat layer exposed; I96 Gangrene, not elsewhere classified; L97.321 Non-pressure chronic ulcer of left ankle limited to breakdown of skin; L97.822 Non-pressure chronic ulcer of other part of left lower leg with fat layer exposed | CPT/HCPCS: 97597; 97598; A6197 ==

== ENCOUNTER → 2022-03-21 14:19 | Outpatient (BNVA) | payer MEDICARE, MEDICAID, SELFPAY | PROVIDERS: PCP Pediatrics; Visit Provider Internal Medicine | DX: I35.0 Nonrheumatic aortic (valve) stenosis (principal); R06.02 Shortness of breath; I12.9 Hypertensive chronic kidney disease with stage 1 through stage 4 chronic kidney disease, or unspecified chronic kidney disease; E11.22 Type 2 diabetes mellitus with diabetic chronic kidney disease; N18.4 Chronic kidney disease, stage 4 (severe); Z79.4 Long term (current) use of insulin; Z79.84 Long term (current) use of oral hypoglycemic drugs; Z87.891 Personal history of nicotine dependence | CPT/HCPCS: 99214 ==

== ENCOUNTER → 2022-03-28 09:41 | Outpatient (BNVA) | payer MEDICARE, MEDICAID, SELFPAY | PROVIDERS: PCP Pediatrics; Visit Provider Nurse Practitioner Family | DX: E11.621 Type 2 diabetes mellitus with foot ulcer (principal); L97.522 Non-pressure chronic ulcer of other part of left foot with fat layer exposed; L97.321 Non-pressure chronic ulcer of left ankle limited to breakdown of skin; L97.822 Non-pressure chronic ulcer of other part of left lower leg with fat layer exposed; I96 Gangrene, not elsewhere classified | CPT/HCPCS: 87070; 87077; 87186; 99213; A6197 ==

== ENCOUNTER → 2022-04-11 09:38 | Outpatient (BNVA) | payer MEDICARE, MEDICAID, SELFPAY | PROVIDERS: PCP Pediatrics; Visit Provider Nurse Practitioner Family | DX: E11.621 Type 2 diabetes mellitus with foot ulcer (principal); I96 Gangrene, not elsewhere classified; L97.522 Non-pressure chronic ulcer of other part of left foot with fat layer exposed; L97.321 Non-pressure chronic ulcer of left ankle limited to breakdown of skin; L97.822 Non-pressure chronic ulcer of other part of left lower leg with fat layer exposed | CPT/HCPCS: 11042; 11045; A6197 ==

== ENCOUNTER → 2022-04-25 10:05 | Outpatient (BNVA) | payer MEDICARE, MEDICAID, SELFPAY | PROVIDERS: PCP Pediatrics; Visit Provider Thoracic Surgery (Cardiothoracic Vascular Surgery) | DX: E11.621 Type 2 diabetes mellitus with foot ulcer (principal); L97.522 Non-pressure chronic ulcer of other part of left foot with fat layer exposed; I96 Gangrene, not elsewhere classified; L97.321 Non-pressure chronic ulcer of left ankle limited to breakdown of skin; L97.822 Non-pressure chronic ulcer of other part of left lower leg with fat layer exposed | CPT/HCPCS: 97597; 97598; A6197 ==

== ENCOUNTER → 2022-05-09 09:57 | Outpatient (BNVA) | payer MEDICARE, MEDICAID, SELFPAY | PROVIDERS: PCP Pediatrics; Visit Provider Thoracic Surgery (Cardiothoracic Vascular Surgery) | DX: E11.621 Type 2 diabetes mellitus with foot ulcer (principal); L97.522 Non-pressure chronic ulcer of other part of left foot with fat layer exposed; I96 Gangrene, not elsewhere classified | CPT/HCPCS: 97597; 97598; A6197 ==

== ENCOUNTER → 2022-05-23 10:37 | Outpatient (BNVA) | payer MEDICARE, MEDICAID, SELFPAY | PROVIDERS: PCP Pediatrics; Visit Provider Nurse Practitioner Family | DX: E11.621 Type 2 diabetes mellitus with foot ulcer (principal); L97.522 Non-pressure chronic ulcer of other part of left foot with fat layer exposed; I96 Gangrene, not elsewhere classified | CPT/HCPCS: 99212; A6197 ==

== ENCOUNTER → 2022-06-13 09:48 | Outpatient (BNVA) | payer MEDICARE, MEDICAID, SELFPAY | PROVIDERS: PCP Pediatrics; Visit Provider Internal Medicine | DX: E10.649 Type 1 diabetes mellitus with hypoglycemia without coma (principal); E10.621 Type 1 diabetes mellitus with foot ulcer; L97.509 Non-pressure chronic ulcer of other part of unspecified foot with unspecified severity; Z87.891 Personal history of nicotine dependence; E05.00 Thyrotoxicosis with diffuse goiter without thyrotoxic crisis or storm; N18.9 Chronic kidney disease, unspecified; Z79.4 Long term (current) use of insulin | CPT/HCPCS: 99214 ==

== ENCOUNTER → 2022-06-20 10:20 | Outpatient (BNVA) | payer MEDICARE, MEDICAID, SELFPAY | PROVIDERS: PCP Pediatrics; Visit Provider Thoracic Surgery (Cardiothoracic Vascular Surgery) | DX: E11.621 Type 2 diabetes mellitus with foot ulcer (principal); L97.522 Non-pressure chronic ulcer of other part of left foot with fat layer exposed; I96 Gangrene, not elsewhere classified | CPT/HCPCS: 97597; 97598 ==

== ENCOUNTER → 2022-07-04 10:06 | Outpatient (BNVA) | payer MEDICARE, MEDICAID, SELFPAY | PROVIDERS: PCP Pediatrics; Visit Provider Nurse Practitioner Family | DX: E11.621 Type 2 diabetes mellitus with foot ulcer (principal); L97.522 Non-pressure chronic ulcer of other part of left foot with fat layer exposed; I96 Gangrene, not elsewhere classified | CPT/HCPCS: 11042; 11045; A6197 ==

== ENCOUNTER → 2022-08-01 10:03 | Outpatient (BNVA) | payer MEDICARE, MEDICAID, SELFPAY | PROVIDERS: PCP Pediatrics; Visit Provider Thoracic Surgery (Cardiothoracic Vascular Surgery) | DX: I96 Gangrene, not elsewhere classified (principal); E11.621 Type 2 diabetes mellitus with foot ulcer; L97.522 Non-pressure chronic ulcer of other part of left foot with fat layer exposed; Z89.511 Acquired absence of right leg below knee | CPT/HCPCS: 97597 ==

== ENCOUNTER → 2022-08-29 09:12 | Outpatient (BNVA) | payer MEDICARE, MEDICAID, SELFPAY | PROVIDERS: PCP Pediatrics; Visit Provider Thoracic Surgery (Cardiothoracic Vascular Surgery) | DX: I96 Gangrene, not elsewhere classified (principal); E11.621 Type 2 diabetes mellitus with foot ulcer; L97.522 Non-pressure chronic ulcer of other part of left foot with fat layer exposed; L97.822 Non-pressure chronic ulcer of other part of left lower leg with fat layer exposed | CPT/HCPCS: 97597; 97598 ==

== ENCOUNTER → 2022-09-12 09:59 | Outpatient (BNVA) | payer MEDICARE, MEDICAID, SELFPAY | PROVIDERS: PCP Pediatrics; Visit Provider Internal Medicine | DX: E11.9 Type 2 diabetes mellitus without complications (principal); E05.00 Thyrotoxicosis with diffuse goiter without thyrotoxic crisis or storm; N18.9 Chronic kidney disease, unspecified; Z79.4 Long term (current) use of insulin; Z87.891 Personal history of nicotine dependence | CPT/HCPCS: 99214 ==

== ENCOUNTER → 2022-09-26 09:50 | Outpatient (BNVA) | payer MEDICARE, MEDICAID, SELFPAY | PROVIDERS: PCP Pediatrics; Visit Provider Thoracic Surgery (Cardiothoracic Vascular Surgery) | DX: I96 Gangrene, not elsewhere classified (principal); E11.621 Type 2 diabetes mellitus with foot ulcer; L97.522 Non-pressure chronic ulcer of other part of left foot with fat layer exposed; Z09 Encounter for follow-up examination after completed treatment for conditions other than malignant neoplasm | CPT/HCPCS: 97597; 97598 ==

== ENCOUNTER → 2022-10-10 10:09 | Outpatient (BNVA) | payer MEDICARE, MEDICAID, SELFPAY | PROVIDERS: PCP Pediatrics; Visit Provider Thoracic Surgery (Cardiothoracic Vascular Surgery) | DX: I96 Gangrene, not elsewhere classified (principal); E11.621 Type 2 diabetes mellitus with foot ulcer; L97.522 Non-pressure chronic ulcer of other part of left foot with fat layer exposed | CPT/HCPCS: 11042 ==

== ENCOUNTER → 2022-10-31 10:15 | Outpatient (BNVA) | payer MEDICARE, MEDICAID, SELFPAY | PROVIDERS: PCP Pediatrics; Visit Provider Thoracic Surgery (Cardiothoracic Vascular Surgery) | DX: I96 Gangrene, not elsewhere classified (principal); E11.621 Type 2 diabetes mellitus with foot ulcer; L97.522 Non-pressure chronic ulcer of other part of left foot with fat layer exposed | CPT/HCPCS: 11044 ==

== ENCOUNTER → 2022-11-28 09:43 | Outpatient (BNVA) | payer MEDICARE, MEDICAID, SELFPAY | PROVIDERS: PCP Pediatrics; Visit Provider Thoracic Surgery (Cardiothoracic Vascular Surgery) | DX: I96 Gangrene, not elsewhere classified (principal); E11.621 Type 2 diabetes mellitus with foot ulcer; L97.522 Non-pressure chronic ulcer of other part of left foot with fat layer exposed | CPT/HCPCS: 97597; 97598 ==

== ENCOUNTER → 2022-12-12 10:04 | Outpatient (BNVA) | payer MEDICARE, MEDICAID, SELFPAY | PROVIDERS: PCP Pediatrics; Visit Provider Internal Medicine | DX: E10.649 Type 1 diabetes mellitus with hypoglycemia without coma (principal); E05.00 Thyrotoxicosis with diffuse goiter without thyrotoxic crisis or storm; N18.9 Chronic kidney disease, unspecified; Z79.4 Long term (current) use of insulin | CPT/HCPCS: 99214 ==

== ENCOUNTER → 2022-12-26 12:29 | Outpatient (BNVA) | payer MEDICARE, MEDICAID, SELFPAY | PROVIDERS: PCP Pediatrics; Visit Provider Nurse Practitioner Family | DX: I12.9 Hypertensive chronic kidney disease with stage 1 through stage 4 chronic kidney disease, or unspecified chronic kidney disease (principal); E11.22 Type 2 diabetes mellitus with diabetic chronic kidney disease; N18.9 Chronic kidney disease, unspecified; Z87.891 Personal history of nicotine dependence; Z79.4 Long term (current) use of insulin; I35.0 Nonrheumatic aortic (valve) stenosis; I96 Gangrene, not elsewhere classified; E11.621 Type 2 diabetes mellitus with foot ulcer; L97.522 Non-pressure chronic ulcer of other part of left foot with fat layer exposed | CPT/HCPCS: 11042; 11045; 99214 ==

== ENCOUNTER → 2023-01-09 10:12 | Outpatient (BNVA) | payer MEDICARE, MEDICAID, SELFPAY | PROVIDERS: PCP Pediatrics; Visit Provider Nurse Practitioner Family | DX: I96 Gangrene, not elsewhere classified (principal); E11.621 Type 2 diabetes mellitus with foot ulcer; L97.522 Non-pressure chronic ulcer of other part of left foot with fat layer exposed | CPT/HCPCS: 97597; 97598 ==

== ENCOUNTER → 2023-01-23 10:18 | Outpatient (BNVA) | payer MEDICARE, MEDICAID, SELFPAY | PROVIDERS: PCP Pediatrics; Visit Provider Thoracic Surgery (Cardiothoracic Vascular Surgery) | DX: I96 Gangrene, not elsewhere classified (principal); E11.621 Type 2 diabetes mellitus with foot ulcer; L97.522 Non-pressure chronic ulcer of other part of left foot with fat layer exposed | CPT/HCPCS: 11042; 11045 ==

== ENCOUNTER 2023-02-06 11:15 | Outpatient (CLI) | payer MEDICARE, MEDICAID, SELFPAY ==
--- NOTE | 2023-02-06 11:45 | USCV_ITS ---
Matthew Barrios Age: 57 Gender: M : 1965 Exam Date: 02/06/2023 11:48 Ordering Phys: Ansley Sheth Technologist: CT Exam Location: [facility] [place]_ Indication: ao stenosis BP: 120 / 58 HR: 63 Rhythm: Sinus Technical Quality: Adequate MEASUREMENTS (Male / Female) Normal Values 2D ECHO LV Diastolic Diameter PLAX 5.8 cm 4.2 - 5.9 / 3.9 - 5.3 cm LV Systolic Diameter PLAX 4.6 cm IVS Diastolic Thickness 1.4 cm 0.6 - 1.0 / 0.6 - 0.9 cm IVS Systolic Thickness 2.0 cm LVPW Diastolic Thickness 1.1 cm 0.6 - 1.0 / 0.6 - 0.9 cm LVPW Systolic Thickness 1.7 cm LVOT Diameter 2.0 cm LV Ejection Fraction 2D Teich 40.8 % LV Ejection Fraction MOD 2C 64.9 % LV Ejection Fraction 2C AL 64.5 % LA Diameter 3.4 cm Aorta at Sinotubular Diameter 2.7 cm IVC Diameter 1.8 cm M-MODE Aortic Annulus Diameter 3.7 cm LA Ao Ratio MM 0.9 MV E Point Septal Separation 0.5 cm DOPPLER AV Peak Velocity 231.8 cm/s LVOT Peak Velocity 107.0 cm/s AV Area Cont Eq vti 1.6 cm squared AV Area Cont Eq pk 1.5 cm squared MV Peak Velocity 108.0 cm/s MV Area PHT 3.3 cm squared Mitral E to A Ratio 1.2 MV E' Velocity 58.0 cm/s Mitral E to MV E' Ratio 15.1 Mitral E to LV E' Lateral Ratio 15.1 Mitral E to LV E' Septal Ratio 15.3 TR Peak Velocity 196.7 cm/s TR Peak Gradient 15.5 mmHg TV Peak E Velocity 85.0 cm/s Right Atrial Pressure 3.0 mmHg Pulmonary Artery Systolic Pressu 18.5 mmHg PV Peak Velocity 97.0 cm/s RV Acceleration Time 0.1 s FINDINGS Left Ventricle Left ventricle is normal in size. LV systolic function is normal with EF of 55 to 60%. No regional wall motion normalities are seen. Right Ventricle Normal in size and function` Right Atrium Normal in size Left Atrium Normal in size Mitral Valve Mild mitral annular calcification is seen.Trace mitral regurgitation. Aortic Valve Aortic valve is thickened and calcified. Mild aortic stenosis with mean gradient of 15 mmHg across the valve and aortic valve area of 1.5cm2. Tricuspid Valve Mild tricuspid regurgitation. Pulmonary artery systolic pressure is normal. Pulmonic Valve Not well-visualized. Pericardium Normal Aorta Normal in size IVC Appears to be normal CONCLUSIONS LV systolic function is normal with EF 55 to 60%. Trace mitral regurgitation Mild aortic stenosis. Mild tricuspid regurgitation Compared to prior echocardiogram from 2019, patient has slight progression of aortic stenosis. Nader Fu MD (Electronically Signed) Final Date: 16 February 2023 16:06 S
== END 2023-02-06 11:16 | disposition home or self-care (01) ==
LOC: RAD 11:21
PROVIDERS: PCP Pediatrics; Visit Provider Nurse Practitioner Family
DX: I35.0 Nonrheumatic aortic (valve) stenosis (principal); I05.0 Rheumatic mitral stenosis; I07.1 Rheumatic tricuspid insufficiency; E11.621 Type 2 diabetes mellitus with foot ulcer; L97.515 Non-pressure chronic ulcer of other part of right foot with muscle involvement without evidence of necrosis; L97.822 Non-pressure chronic ulcer of other part of left lower leg with fat layer exposed
CPT/HCPCS: 93306; 97597; 97598

== ENCOUNTER → 2023-02-20 10:17 | Outpatient (BNVA) | payer MEDICARE, MEDICAID, SELFPAY | PROVIDERS: PCP Pediatrics; Visit Provider Thoracic Surgery (Cardiothoracic Vascular Surgery) | DX: I96 Gangrene, not elsewhere classified (principal); E11.621 Type 2 diabetes mellitus with foot ulcer; L97.522 Non-pressure chronic ulcer of other part of left foot with fat layer exposed | CPT/HCPCS: 11042; 11045 ==

== ENCOUNTER → 2023-03-06 10:22 | Outpatient (BNVA) | payer MEDICARE, MEDICAID, SELFPAY | PROVIDERS: PCP Pediatrics; Visit Provider Thoracic Surgery (Cardiothoracic Vascular Surgery) | DX: E11.621 Type 2 diabetes mellitus with foot ulcer (principal); I96 Gangrene, not elsewhere classified; L97.522 Non-pressure chronic ulcer of other part of left foot with fat layer exposed; E11.622 Type 2 diabetes mellitus with other skin ulcer; L97.821 Non-pressure chronic ulcer of other part of left lower leg limited to breakdown of skin | CPT/HCPCS: 11042; 97597; A6197; A6252 ==

== ENCOUNTER → 2023-03-20 08:21 | Outpatient (BNVA) | payer MEDICARE, MEDICAID, SELFPAY | PROVIDERS: PCP Pediatrics; Visit Provider Internal Medicine | DX: E11.22 Type 2 diabetes mellitus with diabetic chronic kidney disease (principal); I96 Gangrene, not elsewhere classified; E11.621 Type 2 diabetes mellitus with foot ulcer; L97.522 Non-pressure chronic ulcer of other part of left foot with fat layer exposed; E11.622 Type 2 diabetes mellitus with other skin ulcer; I10 Essential (primary) hypertension; L97.821 Non-pressure chronic ulcer of other part of left lower leg limited to breakdown of skin; Z79.4 Long term (current) use of insulin; E05.00 Thyrotoxicosis with diffuse goiter without thyrotoxic crisis or storm; N18.9 Chronic kidney disease, unspecified | CPT/HCPCS: 11042; 11045; 97597; 97598; 99214 ==

== ENCOUNTER → 2023-04-03 10:08 | Outpatient (BNVA) | payer MEDICARE, MEDICAID, SELFPAY | PROVIDERS: PCP Pediatrics; Visit Provider Thoracic Surgery (Cardiothoracic Vascular Surgery) | DX: E11.52 Type 2 diabetes mellitus with diabetic peripheral angiopathy with gangrene (principal); L97.522 Non-pressure chronic ulcer of other part of left foot with fat layer exposed; L97.821 Non-pressure chronic ulcer of other part of left lower leg limited to breakdown of skin; S30.810A Abrasion of lower back and pelvis, initial encounter; W19.XXXA Unspecified fall, initial encounter | CPT/HCPCS: 11042; 11045; 97597; 97598; A6212; A6252; A6253 ==

== ENCOUNTER → 2023-04-17 10:01 | Outpatient (BNVA) | payer MEDICARE, MEDICAID, SELFPAY | PROVIDERS: PCP Pediatrics; Visit Provider Thoracic Surgery (Cardiothoracic Vascular Surgery) | DX: E11.52 Type 2 diabetes mellitus with diabetic peripheral angiopathy with gangrene (principal); L97.522 Non-pressure chronic ulcer of other part of left foot with fat layer exposed; L97.821 Non-pressure chronic ulcer of other part of left lower leg limited to breakdown of skin; Z09 Encounter for follow-up examination after completed treatment for conditions other than malignant neoplasm | CPT/HCPCS: 97597; 97598; A6252 ==

== ENCOUNTER → 2023-05-01 09:55 | Outpatient (BNVA) | payer MEDICARE, MEDICAID, SELFPAY | PROVIDERS: PCP Pediatrics; Visit Provider Thoracic Surgery (Cardiothoracic Vascular Surgery) | DX: E11.52 Type 2 diabetes mellitus with diabetic peripheral angiopathy with gangrene (principal); L97.522 Non-pressure chronic ulcer of other part of left foot with fat layer exposed; L97.821 Non-pressure chronic ulcer of other part of left lower leg limited to breakdown of skin | CPT/HCPCS: 97597; 97598; A6252; A6253 ==

== ENCOUNTER 2023-05-05 15:40 | Inpatient (IN) | payer MEDICARE, MEDICAID, SELFPAY ==
[2023-05-05] VITALS (52 sets, daily range): BP systolic 112–145; BP diastolic 57–90; PULSE 51–106; RESP 10–26; TEMP 36.7; O2SAT 88–96; BMI 26.4
--- NOTE | 2023-05-05 19:30 | XRR_ITS ---
PROCEDURE INFORMATION: Exam: XR Chest Exam date and time: 05/05/2023 8:18 PM Age: 58 years old Clinical indication: Shortness of breath; Additional info: SOB TECHNIQUE: Imaging protocol: Radiologic exam of the chest. Views: 1 view. COMPARISON: CR XR chest 1V portable [id number] 12/21/2021 9:26 PM FINDINGS: Lungs: Moderate lung expansion. Basilar reticulation. Superimposed right basilar opacities. Pleural spaces: Small right pleural effusion. No pneumothorax. Heart/Mediastinum: Normal cardiomediastinal silhouette. Bones/joints: No acute osseous abnormality. XR/XR chest 1V portable [id number] IMPRESSION: 1. Asymmetric right basal opacities which may be on the basis of atelectasis in the setting of small right pleural effusion. Superimposed aspiration/pneumonia not excluded in the appropriate clinical setting. 2. Mild basal pulmonary fibrosis.
[2023-05-05 19:46] LABS: Basophils # 0.1 10^3/uL (0.0-0.1); Basophils % 0.6 %; Eosinophils # 0.3 10^3/uL (0.0-0.8); Eosinophils % 1.9 %; Hematocrit 27.6 % (42.0-52.0); Hemoglobin 8.5 g/dL (11.7-16.6); Lymphocytes # 1.4 10^3/uL (0.8-4.8); Lymphocytes % 10.1 %; Mean Corpuscular HGB Conc 30.8 g/dL (30.0-36.0); Mean Corpuscular Hemoglobin 29.9 pg (28.0-34.0); Mean Corpuscular Volume 97.2 fl (80-94); Mean Platelet Volume 9.4 fL (7.4-10.4); Monocytes # 1.2 10^3/uL (0.2-0.9); Monocytes % 8.8 %; Neutrophils # 10.91 10^3/uL (1.8-7.7); Neutrophils % 78.3 %; Nucleated Red Blood Cells % 0 %; Platelet Count 386 10^3/cmm (130-400); Red Blood Count 2.84 10^6/uL (4.1-5.3); Red Cell Distribution Width 14.9 % (12.1-15.1); White Blood Count 13.9 10^3/uL (4.0-10.0)
[2023-05-05 20:20] LABS: Alkaline Phosphatase 131 U/L (40-130); Anion Gap 23.4 (5-19); Calcium 8.8 mg/dL (8.5-10.5); Carbon Dioxide 20 mmol/L (22-29); Chloride 93 mmol/L (98-107); Globulin 3.6 g/dL (1.3-4.6); Glomerular Filtration Rate 14.8 mL/min (90-130); Glucose 395 mg/dL (65-115); NT Pro B Type Natriuretic Pept 3600 pg/mL (0-125); Osmolality Calculated 316 mOsm/kg (285-295); Potassium 4.4 mmol/L (3.5-5.1); Sodium 132 mmol/L (136-145); Total Bilirubin 0.3 mg/dL (0.15-1.2); Total Protein 6.6 g/dL (6.6-8.7)
[2023-05-05 20:33] LABS: Blood Urea Nitrogen 84 mg/dL (6-20)
[2023-05-05 20:48] LABS: Alanine Aminotransferase 6 U/L (0-41); Aspartate Amino Transferase 9 U/L (0-40)
[2023-05-05] MEDS: bumetanide 0.25 mg/mL SDV 4 mL 2 MG IVP (21:02)
[2023-05-05 21:29] LABS: Procalcitonin 0.22 ng/mL (0-0.5)
[2023-05-05] MEDS: insulin regular-human 100 units/1 mL 10 UNIT IVP (21:32)
[2023-05-05 21:34] LABS: Glucose Point of Care 482 mg/dL (70-110)
[2023-05-05] MEDS: cefTRIAXone 1,000 MG in sodium chloride 0.9% (plus) 50 ML 100 MG IV (21:34)
[2023-05-05 23:02] LABS: ABG PCO2 40.6 mmHg (35-45); ABG PH Result 7.35 (7.35-7.45); HCO3 ABG 28.6 mmol/L (22-26); Oxygen Saturation ABG 90.9; PO2 ABG 66.4 mmHg (80.0-100.0)
[2023-05-05 23:03] LABS: Base Excess ABG -3.1 mmol/L (-2.0-2.0); Blood Gas Allen Test POS
--- NOTE | 2023-05-05 23:34 | W.ED.SOB ---
HPI - SOB/Dyspnea General: Chief Complaint: Shortness of Breath/Dyspnea Stated Complaint: sob, cough Time Seen by Provider: 05/05/23 19:19 History of Present Illness: HPI Narrative: 58-year-old male with complex medical history including left leg wound, CHF, Graves' disease, no insufficiency and aortic stenosis. Patient presented emergency room with shortness of breath for the past few days. Patient also revealed some cough and described the cough as productive cough. Denies any fever, chills, sick contact or recent foreign travel. Denies coughing up blood or vomiting blood. Associated symptoms: Deny chest pain, fever(s), hemoptysis, lightheadedness, palpitations or syncope Review of Systems General: Reports: 10 or more systems reviewed and unremarkable except in HPI and below Const: Denies: fever(s), chills, body aches, change in appetite or change in weight Card: Denies: chest pain, palpitations, irregular heart rhythm, swelling of feet/ankles, lightheadedness or syncope Resp: Reports: dyspnea and productive cough; Denies: wheezing, pain on inspiration or hemoptysis PFSH ED PFSH: Medical History Chronic kidney disease Diabetes Graves disease History of tonsillitis Hypertension Surgical History History of amputation below knee History of cholecystectomy History of eye surgery History of knee surgery History of tonsillectomy and adenoidectomy Family History Grandmother Dementia Social History Smoking and tobacco status: former smoker Alcohol intake: never Substance/Drug Use: never Physical Exam Const: COMMON NORMALS: no acute distress, patient oriented x3, no limitations and alert Eye: COMMON NORMALS: Equal, round and reactive pupils present, EOMs intact bilaterally, conjunctivae normal, no scleral icterus, no papilledema, normal visual ricardo by confrontation and fundi normal bilaterally CONJUNCTIVA: Yes conjunctivae normal PUPIL: Yes Equal, round and reactive pupils present DIRECT OPHTHALMOSCOPY: Yes no papilledema and Yes fundi normal bilaterally Neck/C-Spine: COMMON NORMALS: full ROM, no lymphadenopathy, supple, no meningeal signs, no JVD, Thyroid normal and No carotid bruits GENERAL: Yes normal visual inspection THYROID: Thyroid normal Chest: COMMONS NORMALS: normal inspection of the chest, normal palpation of entire chest wall, normal inspection of the breasts and normal palpation of the breasts Breast/axilla inspection: Yes normal inspection of the breasts BREAST/AXILLA PALPATION: Yes normal palpation of the breasts Resp: AUSCULTATION: crackles, rales, rhonchi and diminished lung sounds Cardio: COMMON NORMALS: no JVD Extremity: OTHER: left leg with walking loza inplace. lef with sith some redness. no calf tenderness Neuro: COMMON NORMALS: patient oriented x3 SENSORIUM/ORIENTATION: Yes alert MENINGEAL SIGNS: Yes no meningeal signs Skin: COMMON NORMALS: no rashes or lesions noted, no wounds, turgor normal, no jaundice, no petechiae and no mottling GENERAL SKIN EXAM: no rashes or lesions noted and turgor normal Course Reevaluation(s): Reevaluation #1: Per assessment patient was stable and no acute distress. Patient has improved on oxygen. Patient denies any chest pain at this time. Consultations: Consultation #1: Discussed patient with Dr. Mederos Vital Signs: Vital signs: Vital Signs Temperature 98.0 F 05/05/23 16:16 Pulse Rate 93 05/05/23 21:30 Respiratory Rate 20 H 05/05/23 21:30 Blood Pressure 112/57 05/05/23 21:30 Pulse Oximetry 93 05/05/23 21:30 Oxygen Delivery Me thod Room Air 05/05/23 16:16 MDM - SOB/Dyspnea Medical Decision Making Admit comfortable emergency room. Patient had extensive work-up including labs ABG, x-ray, EKG. Discussed and reviewed the ED labs, x-ray and EKG with the patient and family. Patient was given IV antibiotics and IV Bumex discussed patient with the hospitalist for possible admission. Patient admitted for further evaluation and treatment. Differential Diagnosis Likely acute exacerbation of chronic obstructive airways disease, congestive heart failure, community acquired pneumonia, asthma with exacerbation and pulmonary embolism Lab Data 05/05/23 19:40 05/05/23 19:40 Labs/Radiology: Radiology Impressions Chest X-Ray 05/05/23 19:30 IMPRESSION: 1. Asymmetric right basal opacities which may be on the basis of atelectasis in the setting of small right pleural effusion. Superimposed aspiration/pneumonia not excluded in the appropriate clinical setting. 2. Mild basal pulmonary fibrosis. Laboratory Results WBC 13.9 10^3/uL (4.0-10.0) H 05/05/23 19:40 RBC 2.84 10^6/uL (4.1-5.3) L 05/05/23 19:40 Hgb 8.5 g/dL (11.7-16.6) L 05/05/23 19:40 Hct 27.6 % (42.0-52.0) L 05/05/23 19:40 MCV 97.2 fl (80-94) H 05/05/23 19:40 MCH 29.9 pg (28.0-34.0) 05/05/23 19:40 MCHC 30.8 g/dL (30.0-36.0) 05/05/23 19:40 RDW 14.9 % (12.1-15.1) 05/05/23 19:40 Plt Count 386 10^3/cmm (130-400) 05/05/23 19:40 MPV 9.4 fL (7.4-10.4) 05/05/23 19:40 Neut % (Auto) 78.3 % 05/05/23 19:40 Lymph % (Auto) 10.1 % 05/05/23 19:40 [place] % (Auto) 8.8 % 05/05/23 19:40 Eos % (Auto) 1.9 % 05/05/23 19:40 Baso % (Auto) 0.6 % 05/05/23 19:40 Neut # (Auto) 10.91 10^3/uL (1.8-7.7) H 05/05/23 19:40 Lymph # (Auto) 1.4 10^3/uL (0.8-4.8) 05/05/23 19:40 [place] # (Auto) 1.2 10^3/uL (0.2-0.9) H 05/05/23 19:40 Eos # (Auto) 0.3 10^3/uL (0.0-0.8) 05/05/23 19:40 Baso # (Auto) 0.1 10^3/uL (0.0-0.1) 05/05/23 19:40 Nucleated RBC % (auto) 0 % 05/05/23 19:40 Nucleated RBCs # 0.0 /100WBC 05/05/23 19:40 ABG pH 7.35 (7.35-7.45) 05/05/23 22:48 ABG pCO2 40.6 mmHg (35-45) 05/05/23 22:48 ABG pO2 66.4 mmHg (80.0-100.0) L 05/05/23 22:48 ABG HCO3 28.6 mmol/L (22-26) H 05/05/23 22:48 ABG O2 Saturation 90.9 05/05/23 22:48 ABG Base Excess -3.1 mmol/L (-2.0-2.0) L 05/05/23 22:48 Prashant Test Pos 05/05/23 22:48 O2 Delivery Device None 05/05/23 22:48 Sodium 132 mmol/L (136-145) L 05/05/23 19:40 Potassium 4.4 mmol/L (3.5-5.1) 05/05/23 19:40 Chloride 93 mmol/L (98-107) L 05/05/23 19:40 Carbon Dioxide 20 mmol/L (22-29) L 05/05/23 19:40 Anion Gap 23.4 (5-19) H 05/05/23 19:40 BUN 84 mg/dL (6-20) H* D 05/05/23 19:40 Creatinine 4.2 mg/dL (0.7-1.2) H 05/05/23 19:40 GFR Calculation 14.8 mL/min (90-130) L 05/05/23 19:40 Glucose 395 mg/dL (65-115) H 05/05/23 19:40 POC Glucose 482 mg/dL (70-110) H 05/05/23 21:32 Calculated Osmolality 316 mOsm/kg (285-295) H 05/05/23 19:40 Calcium 8.8 mg/dL (8.5-10.5) 05/05/23 19:40 Total Bilirubin 0.3 mg/dL (0.15-1.2) 05/05/23 19:40 AST 9 U/L (0-40) 05/05/23 19:40 ALT 6 U/L (0-41) 05/05/23 19:40 Alkaline Phosphatase 131 U/L (40-130) H 05/05/23 19:40 NT-Pro-B Natriuret Pep 3600 pg/mL (0-125) H 05/05/23 19:40 Total Protein 6.6 g/dL (6.6-8.7) 05/05/23 19:40 Albumin 3.0 g/dL (3.5-5.2) L 05/05/23 19:40 Globulin 3.6 g/dL (1.3-4.6) 05/05/23 19:40 Procalcitonin 0.22 ng/mL (0-0.5) 05/05/23 19:40 ABG Data ABG Interpretation 1: ABG results: pH 7.349. PCO2 40 PO2 66 Critical Care Time Critical Care Time: Critical Care Time: Yes Total Critical Care Time: 40 Attestation: Time spent reviewing previous labs medical record. Time spent discussing findings with patient and family. Time spent treating and reassess and patient. Discharge Plan Discharge Patient Disposition: Admitted As Inpatient Admit Provider: Anisa Chiu Clinical Impression: Shortness of breath, Chronic kidney disease, Diabetes, Aortic stenosis, Pleural effusion, Uncontrolled diabetes mellitus Condition: Stable Prescriptions: No Action terazosin 5 mg capsule 5 mg PO DAILY amlodipine 10 mg tablet 10 mg PO DAILY tamsulosin [Flomax] 0.4 mg capsule 0.4 mg PO DAILY cyclobenzaprine 10 mg tablet 10 mg PO BID Humalog U-100 Insulin 100 unit/mL cartridge 5 unit SUBCUT TID Patient Comments: Only a SS Lantus Solostar U-100 Insulin 100 unit/mL (3 mL) insulin pen 37 unit SUBCUT DAILY bumetanide 0.5 mg tablet 0.5 mg PO BID atorvastatin 80 mg tablet 80 mg PO DAILY pentoxifylline 400 mg tablet extended release 400 mg PO TID Rx Instructions: must administer with a meal/food metoprolol tartrate 100 mg tablet 100 mg PO DAILY methimazole 5 mg tablet 5 mg PO DAILY 30 Days Qty: 90 3RF Rx Instructions: 1 tablet Saturday-Saturday ondansetron 4 mg tablet,disintegrating 4 mg PO Q6H PRN (Reason: nausea and vomiting) Qty: 14 0RF Referrals: Laverne Mcpherson MD [Primary Care Provider] - Coding Level of Care Code ED [employer] Line Examiner for Evig Armida
[2023-05-05] MEDS: azithromycin 500 MG in sodium chloride 0.9% 250 ML 250 MG IV (23:52)
[2023-05-06] VITALS (18 sets, daily range): BP systolic 114–126; BP diastolic 56–62; PULSE 83–116; RESP 17–29; TEMP 36.4–36.9; O2SAT 86–97
--- NOTE | 2023-05-06 00:56 | ECG_ITS ---
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 Measurements Intervals [place] Rate: 95 P: 32 FL: 152 QRS: 32 QRSD: 104 T: 42 QT: 363 QTc: 457 Interpretive Statements SINUS RHYTHM POSSIBLE ANTERIOR MYOCARDIAL INFARCTION , OF INDETERMINATE AGE [30 ms Q WAVE IN V3/V4, OR R < 0.2 mV IN V4] Compared to ECG 01/14/2019 20:13:26 Sinus tachycardia no longer present Left anterior fascicular block no longer present Myocardial infarct finding still present Electronically Signed On 05-06-2023 21:32:59 CDT by James Woodall M.D. [id number]
--- NOTE | 2023-05-06 01:02 | P.HP_ITS ---
Providers/Chief Complaint Admitting Physician: Anisa Chiu MD Primary Care Provider: Laverne Mcpherson MD Chief Complaint: sob, cough History of Present Illness Matthew Barrios Jr is a 58 year old male with a past medical history of diabetes mellitus, hypertension, peripheral artery disease who is presenting to the hospital with chief complaints of 2 to 3 days of runny nose, postnasal drip, cough and worsening dyspnea. At baseline patient ambulates with a wheelchair, states that it has been harder to do his usual activities. Initially he attributed his symptoms to allergies but when his dyspnea worsened he presented to the emergency room today. Denies any kuldeep chest pain, however states there is heaviness in his chest. X-ray today shows scattered bilateral infiltrates. He has been compliant with his home medications including Bumex. Review of Systems General: Reports: 10 or more systems reviewed and unremarkable except in HPI and below Const: Denies: fever(s), chills or body aches Eyes: Denies: change in vision, blurry vision or photophobia ENMT: Reports: hoarseness; Denies: throat pain, enlarged tonsils, odynophagia or nasal congestion Card: Denies: chest pain, palpitations, irregular heart rhythm, edema, swelling of feet/ankles, lightheadedness, pre-syncope, dyspnea on exertion or orthopnea Resp: Denies: dyspnea, productive cough, non-productive cough, wheezing, stridor, pain on inspiration, change in phlegm color, hemoptysis or chest congestion GI: Denies: abdominal pain, nausea, vomiting, hematemesis, coffee ground emesis, dysphagia, heartburn, diarrhea, constipation, GI cramping, change in stool character, hematochezia or melena : Denies: flank pain, dysuria, urinary frequency, urinary urgency, urinary hesitancy or hematuria Musc: Denies: neck pain, back pain, extremity pain, joint swelling, joint warmth or deformity Neuro: Denies: headache(s), numbness in extremities, weakness in extremities, sensory changes, difficulty walking, frequent falls, dizziness, vertigo, behavioral changes, Slurred speech present or seizure-like activity Psych: Denies: anxiety, depression, suicidal ideation or homicidal ideation Endo: Denies: polyuria, polydipsia, tired all the time, cold intolerance or hot flashes Himanshu/Lymph: Denies: easy bruising or easy bleeding Medications/Allergies Home Medications Medication Instructions Recorded Confirmed Last Taken Type amlodipine 10 mg tablet 10 mg PO QAM 01/21/20 05/06/23 Unknown History terazosin 5 mg capsule 5 mg PO BID 08/18/20 05/06/23 Unknown History atorvastatin 80 mg tablet 80 mg PO BEDTIME 10/05/20 05/06/23 Unknown History cyclobenzaprine 10 mg tablet 10 mg PO BEDTIME PRN Muscle Spasm 06/14/21 05/06/23 Unknown History pentoxifylline 400 mg 400 mg PO BID 03/21/22 05/06/23 Unknown History tablet,extended release acetaminophen 500 mg tablet 1,500 mg PO BEDTIME 05/06/23 05/06/23 Unknown History albuterol sulfate 90 mcg/actuation 2 puff inhalation Q6H PRN 05/06/23 05/06/23 Unknown History aerosol inhaler Shortness Of Breath allopurinol 300 mg tablet 300 mg PO QAM 05/06/23 05/06/23 Unknown History aspirin 81 mg tablet,delayed 81 mg PO BEDTIME 05/06/23 05/06/23 Unknown History release bumetanide 2 mg tablet 2 mg PO BID 05/06/23 05/06/23 Unknown History cetirizine 10 mg tablet 10 mg PO BEDTIME 05/06/23 05/06/23 Unknown History insulin glargine 100 unit/mL (3 26 unit SUBCUT BEDTIME 05/06/23 05/06/23 Unknown History mL) subcutaneous pen (Lantus Solostar U-100 Insulin) insulin lispro 100 unit/mL See Rx Instructions .Route .COMPLEX 05/06/23 05/06/23 Unknown History subcutaneous pen metoprolol tartrate 100 mg tablet 150 mg PO BID 05/06/23 05/06/23 Unknown History sodium bicarbonate 650 mg tablet 1,300 mg PO BID 05/06/23 05/06/23 Unknown History umeclidinium 62.5 mcg/actuation 1 inh inhalation DAILY 05/06/23 05/06/23 Unknown History blister powder for inhalation (Incruse Ellipta) Allergies Allergy/AdvReac Type Severity Reaction Status Date / Time furosemide [From Lasix] Allergy Intermediate kidney Verified 05/06/23 08:57 complications walnut Allergy Unknown inknown Verified 05/06/23 08:57 morphine Allergy ADR-Halluci Verified 05/06/23 08:57 nating trazodone Allergy RASH Verified 05/06/23 08:57 PFSH Acute PFSH: Medical History Chronic kidney disease Diabetes Graves disease History of tonsillitis Hypertension Surgical History History of amputation below knee History of cholecystectomy History of eye surgery History of knee surgery History of tonsillectomy and adenoidectomy Family History Grandmother Dementia Social History Smoking and tobacco status: former smoker Alcohol intake: never Substance/Drug Use: never Vitals/I&O/Wt Last Vital Signs Temp 98.0 F 05/05/23 16:16 Pulse 85 05/05/23 22:00 Resp 13 05/05/23 22:00 BP 134/90 05/05/23 23:50 Pulse Ox 96 05/05/23 23:50 O2 Del Method Room Air 05/06/23 00:01 05/05/23 05/05/23 05/06/23 14:59 22:59 06:59 Intake Total 50 / 50 Balance 50 / 50 Weight last 48 hrs Weight 88.451 kg Physical Exam Narrative: General: No acute distress, AO x3 HEENT: PERRLA, pupils bilaterally equal and reactive, pallors not present Chest: Scattered Rales to auscultation bilaterally CVS: S1-S2 regular, no murmurs, no tachycardia, no gallops, no rubs Abdomen: Soft, nontender, no organomegaly, bowel sounds present Neuro: No focal deficits, no facial deformity, AO x3, power 5/5 in all limbs Data 05/06/23 07:23 05/06/23 07:23 Micro: Microbiology 05/05/23 21:25 Blood Culture - Preliminary Blood SPECIMEN COLLECTED 05/05/23 21:20 Blood Culture - Preliminary Blood SPECIMEN COLLECTED Other data: Radiology Impressions Chest X-Ray 05/05/23 19:30 IMPRESSION: 1. Asymmetric right basal opacities which may be on the basis of atelectasis in the setting of small right pleural effusion. Superimposed aspiration/pneumonia not excluded in the appropriate clinical setting. 2. Mild basal pulmonary fibrosis. Laboratory Results WBC 13.9 10^3/uL (4.0-10.0) H 05/05/23 19:40 RBC 2.84 10^6/uL (4.1-5.3) L 05/05/23 19:40 Hgb 8.5 g/dL (11.7-16.6) L 05/05/23 19:40 Hct 27.6 % (42.0-52.0) L 05/05/23 19:40 MCV 97.2 fl (80-94) H 05/05/23 19:40 MCH 29.9 pg (28.0-34.0) 05/05/23 19:40 MCHC 30.8 g/dL (30.0-36.0) 05/05/23 19:40 RDW 14.9 % (12.1-15.1) 05/05/23 19:40 Plt Count 338 10^3/cmm (130-400) 05/06/23:23 MPV 9.4 fL (7.4-10.4) 05/05/23 19:40 Neut % (Auto) 78.3 % 05/05/23 19:40 Lymph % (Auto) 10.1 % 05/05/23 19:40 [place] % (Auto) 8.8 % 05/05/23 19:40 Eos % (Auto) 1.9 % 05/05/23 19:40 Baso % (Auto) 0.6 % 05/05/23 19:40 Neut # (Auto) 10.91 10^3/uL (1.8-7.7) H 05/05/23 19:40 Lymph # (Auto) 1.4 10^3/uL (0.8-4.8) 05/05/23 19:40 [place] # (Auto) 1.2 10^3/uL (0.2-0.9) H 05/05/23 19:40 Eos # (Auto) 0.3 10^3/uL (0.0-0.8) 05/05/23 19:40 Baso # (Auto) 0.1 10^3/uL (0.0-0.1) 05/05/23 19:40 Nucleated RBC % (auto) 0 % 05/05/23 19:40 Nucleated RBCs # 0.0 /100WBC 05/05/23 19:40 D-Dimer 1.11 ug/mIFEU (0-0.59) H 05/06/23 07:23 Specimen Type Arterial 05/05/23 22:48 Sample Site R,radial 05/05/23 22:48 ABG pH 7.35 (7.35-7.45) 05/05/23 22:48 ABG pCO2 40.6 mmHg (35-45) 05/05/23 22:48 ABG pO2 66.4 mmHg (80.0-100.0) L 05/05/23 22:48 ABG HCO3 28.6 mmol/L (22-26) H 05/05/23 22:48 ABG O2 Saturation 90.9 05/05/23 22:48 ABG Base Excess -3.1 mmol/L (-2.0-2.0) L 05/05/23 22:48 Prashant Test Pos 05/05/23 22:48 A-a O2 Gradient 32.2 mmHg (5-10) H 05/05/23 22:48 Hematocrit 28.6 % (42-52) L 05/05/23 22:48 Hgb O2 Saturation 88.3 % (95-100) L 05/05/23 22:48 Carboxyhemoglobin 0.5 %THgb (0.4-20.1) 05/05/23 22:48 Methemoglobin 2.4 % (0.4-1.5) H 05/05/23 22:48 Total Hemoglobin 9.3 g/dL (14-18) L 05/05/23 22:48 Sodium 133.0 mmol/L (131-143) 05/05/23 22:48 Potassium 3.4 mmol/L (3.5-5.0) L 05/05/23 22:48 Glucose 359.0 mg/dL (70-115) H 05/05/23 22:48 Ionized Calcium 1.2 mmol/L (1.1-1.4) 05/05/23 22:48 O2 Delivery Device None 05/05/23 22:48 FiO2 21.0 % 05/05/23 22:[address] 05/05/23 22:48 Sodium 129 mmol/L (136-145) L 05/06/23 07:23 Potassium 3.7 mmol/L (3.5-5.1) 05/06/23 07:23 Chloride 91 mmol/L (98-107) L 05/06/23 07:23 Carbon Dioxide 20 mmol/L (22-29) L 05/06/23 07:23 Anion Gap 21.7 (5-19) H 05/06/23 07:23 BUN 80 mg/dL (6-20) H 05/06/23 07:23 Creatinine 4.1 mg/dL (0.7-1.2) H 05/06/23 07:23 GFR Calculation 15.2 mL/min (90-130) L 05/06/23 07:23 Glucose 308 mg/dL (65-115) H 05/06/23 07: POC Glucose 353 mg/dL (70-110) H 05/06/23 11:01 Calculated Osmolality 304 mOsm/kg (285-295) H 05/06/23 07:23 Calcium 8.7 mg/dL (8.5-10.5) 05/06/23 07: Iron 23 ug/dL (59-158) L 05/06/23 01:20 Ferritin 151 ng/mL (30-400) 05/06/23 01:20 Total Bilirubin 0.2 mg/dL (0.15-1.2) 05/06/23 07:23 AST 11 U/L (0-40) 05/06/23 07:23 ALT 6 U/L (0-41) 05/06/23 07:23 Alkaline Phosphatase 104 U/L (40-130) 05/06/23 07:23 Troponin T Baseline 92 ng/L (0-15) H 05/06/23 01:20 Troponin T 120 Minute 114.1 ng/L (0-15) H 05/06/23 04:04 Delta Troponin T 22.1 ABS# (0-10) H* 05/06/23 04:04 Troponin T Hi Sens 6Hr 167.1 ng/L (0-15) H 05/06/23 07:23 Troponin T Hi Sens 6Hr Delta 75.1 ng/L (0-12) H* 05/06/23 07:23 NT-Pro-B Natriuret Pep 3600 pg/mL (0-125) H 05/05/23 19:40 Total Protein 5.9 g/dL (6.6-8.7) L 05/06/23 07:23 Albumin 2.8 g/dL (3.5-5.2) L 05/06/23 07:23 Globulin 3.1 g/dL (1.3-4.6) 05/06/23 07:23 Procalcitonin 0.22 ng/mL (0-0.5) 05/05/23 19:40 Serum Ketones Negative (Negative) 05/06/23 07:23 A&P Assessment and plan (1) Uncontrolled diabetes mellitus: (2) Aortic stenosis: (3) Shortness of breath: (4) Chronic kidney disease: (5) Pneumonia: Plan 58-year-old male with a past medical history as outlined above presenting with chief complaints of progressive shortness of breath, more recently worsened over the last 2 to 3 days. 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 Patient's last cardiac stress test in 2020 showed reversible defects in multiple territories. He denies any past history of angiogram or stents. Check D-dimer Currently appearing to be euvolemic, continue home dose of Bumex. He has received 2 mg of IV Bumex in the emergency room History of CKD, creatinine currently at recent baseline of 4. Closely monitor urine output. Hyperglycemia with blood sugar greater than 400 currently. Mild anion gap of 23. He has received 10 units of IV push insulin. We will repeat CMP in 4 hours to assess if anion gap is closed. If persisting will likely need insulin drip. Patient is a type I diabetic. He is status post amputation of the right lower extremity. Left lower extremity has a chronic wound for which he follows with wound care. He has changes of stasis dermatitis. States that wound looks unchanged over several months. Attestations Medical Necessity Statement*: Greater than 2 midnight admission is anticipated for management of pneumonia, IV antibiotics, hyperglycemia, cardiac evaluation as noted above. Coding Level of Care Code Acute Code for [facility] Diagnoses Uncontrolled diabetes mellitus Aortic stenosis I35.0 Shortness of breath R06.02 Chronic kidney disease N18.9 Pneumonia J18.9
[2023-05-06] MEDS: heparin 5,000 unit/mL INJ 1 mL 5000 UNIT SUBCUT (01:41)
[2023-05-06 01:55] LABS: D Dimer 1.15 ug/mIFEU (0-0.59)
[2023-05-06 02:03] LABS: Troponin(5th) Baseline 92 ng/L (0-15)
[2023-05-06 02:16] LABS: Ferritin 151 ng/mL (30-400); Iron 23 ug/dL (59-158)
--- NOTE | 2023-05-06 03:29 | ECG_ITS ---
[facility] Test Date: 2023-05-06 Pat Name: Matthew Barrios Department: Room: 112 Gender: Male Well Digger: : 1965 Requested By: Anisa Chiu Order Number: [id number] Yuliana MD: James Woodall M.D. Measurements Intervals [place] Rate: 100 P: 39 UT: 161 QRS: 32 QRSD: 104 T: 34 QT: 360 QTc: 464 Interpretive Statements SINUS TACHYCARDIA POSSIBLE ANTERIOR MYOCARDIAL INFARCTION , OF INDETERMINATE AGE [30 ms Q WAVE IN V3/V4, OR R < 0.2 mV IN V4] Compared to ECG 05/06/2023 02:11:13 Sinus rhythm no longer present Myocardial infarct finding still present Electronically Signed On 05-06-2023 21:33:17 CDT by James Woodall M.D. [id number]
[2023-05-06 03:36] LABS: Glucose Point of Care 426 mg/dL (70-110)
--- NOTE | 2023-05-06 04:30 | ECG_ITS ---
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 Measurements Intervals [place] Rate: 102 P: 31 [place]: 173 QRS: 30 QRSD: 103 T: 31 QT: 345 QTc: 451 Interpretive Statements SINUS TACHYCARDIA POSSIBLE ANTERIOR MYOCARDIAL INFARCTION , OF INDETERMINATE AGE [30 ms Q WAVE IN V3/V4, OR R < 0.2 mV IN V4] Compared to ECG 05/06/2023 03:29:14 No significant changes Electronically Signed On 05-06-2023 21:43:38 CDT by James Woodall M.D. [id number]
[2023-05-06 05:09] LABS: Troponin 5 2HR 114.1 ng/L (0-15); Troponin 5 2HR Delta 22.1 ABS# (0-10)
--- NOTE | 2023-05-06 06:56 | ECG_ITS ---
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 Measurements Intervals [place] Rate: 107 P: 48 UT: 168 QRS: 33 QRSD: 103 T: 35 QT: 345 QTc: 462 Interpretive Statements SINUS TACHYCARDIA WITH FREQUENT SUPRAVENTRICULAR PREMATURE COMPLEXES POSSIBLE ANTERIOR MYOCARDIAL INFARCTION , OF INDETERMINATE AGE [30 ms Q WAVE IN V3/V4, OR R < 0.2 mV IN V4] Compared to ECG 05/06/2023 04:30:25 No significant changes Electronically Signed On 05-06-2023 21:43:55 CDT by James Woodall M.D. [id number]
[2023-05-06 07:32] LABS: Platelet Count 338 10^3/cmm (130-400)
[2023-05-06 07:52] LABS: Alanine Aminotransferase 6 U/L (0-41); Albumin Level 2.8 g/dL (3.5-5.2); Alkaline Phosphatase 104 U/L (40-130); Anion Gap 21.7 (5-19); Aspartate Amino Transferase 11 U/L (0-40); Blood Urea Nitrogen 80 mg/dL (6-20); Calcium 8.7 mg/dL (8.5-10.5); Carbon Dioxide 20 mmol/L (22-29); Chloride 91 mmol/L (98-107); Globulin 3.1 g/dL (1.3-4.6); Glomerular Filtration Rate 15.2 mL/min (90-130); Glucose 308 mg/dL (65-115); Osmolality Calculated 304 mOsm/kg (285-295); Potassium 3.7 mmol/L (3.5-5.1); Sodium 129 mmol/L (136-145); Total Bilirubin 0.2 mg/dL (0.15-1.2); Total Protein 5.9 g/dL (6.6-8.7)
[2023-05-06 07:57] LABS: Glucose Point of Care 342 mg/dL (70-110)
[2023-05-06 08:13] LABS: Troponin 5 6HR 167.1 ng/L (0-15); Troponin 5 6HR Delta 75.1 ng/L (0-12)
[2023-05-06] MEDS: pantoprazole DR 40 mg Tablet PO (08:18)
[2023-05-06] MEDS: azithromycin 250 mg Tablet 500 MG PO (08:18)
[2023-05-06] MEDS: heparin drip 25,000 UNIT/500 ML PREMIX 24 UNIT IV (08:19)
[2023-05-06] MEDS: insulin regular-human 10 UNIT in SYRINGE 1 EACH IVP (08:27)
--- NOTE | 2023-05-06 08:28 | USCV_ITS ---
Denis Matthew Age: 58 Gender: M : 1965 Exam Date: 05/06/2023 09:02 Ordering Phys: Donal Tran MD Technologist: Pola Aguirre Exam Location: [facility] [place] Indication: EF BP: 118 / 62 HR: 103 Rhythm: Sinus Technical Quality: Suboptimal MEASUREMENTS (Male / Female) Normal Values 2D ECHO LV Diastolic Diameter PLAX 3.9 cm 4.2 - 5.9 / 3.9 - 5.3 cm LV Systolic Diameter PLAX 3.4 cm IVS Diastolic Thickness 1.3 cm 0.6 - 1.0 / 0.6 - 0.9 cm IVS Systolic Thickness 1.7 cm LVPW Diastolic Thickness 1.1 cm 0.6 - 1.0 / 0.6 - 0.9 cm LVPW Systolic Thickness 1.7 cm LVOT Diameter 2.0 cm LV Ejection Fraction 2D Teich 10.6 % LA Diameter 4.0 cm Aorta at Sinotubular Diameter 2.8 cm M-MODE Aortic Annulus Diameter 3.4 cm LA Ao Ratio MM 1.0 MV E Point Septal Separation 1.1 cm FINDINGS Left Ventricle Normal left ventricular cavity size. Grossly normal left ventricular systolic function. Left ventricular ejection fraction is estimated at 55 %. Study is inadequate for estimation of regional wall motion abnormality. Right Ventricle Normal right ventricular size and systolic function. Right Atrium Normal right atrial size. Left Atrium Left atrium not well visualized. Normal left atrial size. Mitral Valve Mild mitral annular calcification. Aortic Valve Thickened and calcified aortic valve. Tricuspid Valve Tricuspid valve not well visualized. Pulmonic Valve Pulmonic valve not well visualized. Pericardium No thickening/calcification of the pericardium. Aorta Normal size aortic root. IVC Inferior vena cava not visualized. CONCLUSIONS 1. This is a technically difficult study. 2. Normal left ventricular cavity size. Grossly normal left ventricular systolic function. Left ventricular ejection fraction is estimated at 55 %. Study is inadequate for estimation of regional wall motion abnormality. 3. Direct comparison to previous study 01/27/2023 is not possible due to technical differences in study. Minerva Gee MD (Electronically Signed) Final Date: 06 May 2023 12:47 S
--- NOTE | 2023-05-06 08:32 | USCV_ITS ---
Matthew Barrios Age: 58 Gender: M : 1965 Exam Date: 05/06/2023 08:50 Ordering Phys: Donal Tran MD Technologist: Pola Aguirre Exam Location: [facility] [place]_ Indication: ? pe PROCEDURES: The venous duplex Doppler examination of both lower extremities was performed in the standard fashion. The following venous structures were evaluated: common femoral vein, profunda vein, proximal portion of the greater saphenous vein, superficial femoral vein, and the popliteal vein. In addition, the posterior tibial and peroneal trunk were evaluated. FINDINGS: Normal 2-D Doppler and augmentation and compressibility throughout the lower extremity venous structures. Additional imaging through the proximal calf veins also reveals no thrombus. Limited evaluation of the greater saphenous vein is patent with no thrombus. CONCLUSIONS No evidence of right lower extremity DVT. No evidence of left lower extremity DVT. José Miguel Martin MD (Electronically Signed) Final Date: 06 May 2023 13:15 S
[2023-05-06 09:04] LABS: D Dimer 1.11 ug/mIFEU (0-0.59)
--- NOTE | 2023-05-06 09:08 | PC.PHAR ---
pt states he takes care of his own medications-pt states he uses lantus solostar 26 units hs ext shows last filled 01/29/23 38 units hs-pt states he takes pentoxifylline er 400mg bid ext shows last filled 04/15/23 30d/s 400mg tid-pt states the dced his flomax 0.8mg hs about 2 months ago ext shows last filled 01/09/23 30d/s-pt states he still uses incruse elpt 1p daily ext shows last filled 11/21/22-notes are made in the pharmacy comments
[2023-05-06] MEDS: metoprolol tartrate 50 mg Tablet 100 MG PO (09:34)
[2023-05-06] MEDS: aspirin 81 mg EC Tablet PO (09:34)
[2023-05-06 09:40] LABS: Ketone (Acetest) Serum Negative (Negative)
[2023-05-06] MEDS: potassium chloride ER 20 mEq Tablet 40 MEQ PO (09:40)
[2023-05-06] MEDS: terazosin 5 mg Capsule PO (09:40)
[2023-05-06] MEDS: atorvastatin 40 mg Tablet 80 MG PO (09:43)
[2023-05-06] MEDS: sucralfate 1 gm Tablet PO ×2 (09:43→19:48)
[2023-05-06] MEDS: HYDROmorphone 1 mg/mL INJ 1 mL 0.5 MG IVP ×2 (09:50→21:47)
[2023-05-06] MEDS: pantoprazole 40 mg SDV IVP ×2 (09:50→21:46)
[2023-05-06] MEDS: methIMAzole 5 MG Tablet PO (09:51)
[2023-05-06 09:57] LABS: Glucose Point of Care 288 mg/dL (70-110)
[2023-05-06] MEDS: insulin glargine 100 units/1 mL 30 UNIT SUBCUT (09:58)
[2023-05-06 10:34] LABS: Potassium Level - ABG 3.4 mmol/L (3.5-5.0)
[2023-05-06 10:35] LABS: Arterial Blood Gas Hematocrit 28.6 % (42-52); Blood Gas Sample Type Arterial
[2023-05-06 10:36] LABS: Alveolar-Arterial Oxygen Gradi 32.2 mmHg (5-10); Carboxyhemoglobin 0.5 %THgb (0.4-20.1); HGB O2 Sat 88.3 % (95-100); Ionized Calcium Level - ABG 1.2 mmol/L (1.1-1.4); Methemoglobin 2.4 % (0.4-1.5); Total Hemoglobin 9.3 g/dL (14-18)
[2023-05-06 11:15] LABS: Glucose Point of Care 353 mg/dL (70-110)
[2023-05-06] MEDS: insulin lispro 100 unit/1 mL SUBCUT ×3 (12:57→21:46)
[2023-05-06 13:25] LABS: Hematocrit 26.7 % (42.0-52.0); Hemoglobin 8.1 g/dL (11.7-16.6)
[2023-05-06] MEDS: piperacillin-tazobactam 3.375 GM in sodium chloride 0.9% (plus) 50 ML IV ×2 (13:32→19:49)
[2023-05-06 13:44] LABS: Anion Gap 20.1 (5-19); Blood Urea Nitrogen 79 mg/dL (6-20); Calcium 8.7 mg/dL (8.5-10.5); Carbon Dioxide 21 mmol/L (22-29); Chloride 93 mmol/L (98-107); Glomerular Filtration Rate 14.8 mL/min (90-130); Glucose 290 mg/dL (65-115); Osmolality Calculated 304 mOsm/kg (285-295); Potassium 4.1 mmol/L (3.5-5.1); Sodium 130 mmol/L (136-145)
[2023-05-06 14:23] LABS: Glucose Point of Care 328 mg/dL (70-110)
[2023-05-06] MEDS: vancomycin 1,250 MG/250 ML PIGGYBACK 200 MG IV (14:30)
[2023-05-06 15:15] LABS: C Reactive Protein 71.7 mg/L (0.0-4.9)
[2023-05-06 15:23] LABS: Procalcitonin 0.24 ng/mL (0-0.5)
--- NOTE | 2023-05-06 15:40 | P.CONIM_ITS ---
Providers/Reason For Consult Consulting Physician/Specialty*: Dr. Stanford/wound care services Reason for Consult*: Chronic left lower extremity wound Requesting Physician: Dr. Tran Attending Physician: Donal Tran MD Primary Care Provider: Laverne Mcpherson MD History of Present Illness History of Present Illness Matthew Barrios Jr is a 58 year old male whom we have followed for quite some time through wound care services for a left lower extremity chronic wound which is a combination of chronic lower extremity ischemia and diabetes mellitus. He has severe renal impairment with a creatinine which averages around 4. He is followed by nephrology periodically. It is been strongly encouraged that he avoid all contrast media related to his severe renal impairment. He has chronic wounds of the left lower extremity particularly of the left second and third toes distally with actually some exposed bone. This has been chronic and stable in nature for some time, surprisingly. I have discussed previously with Mr. Barrios on numerous occasions consideration for amputation though this would be at a substantial level related to his severe distal perfusion impairment. He has been reluctant to this and, surprisingly, to his credit, the wound has remained remarkably stable. He is status post right BKA and utilizes a prosthesis to assist with ambulation though much of the time he is in a wheelchair but does transfer with his prosthesis. He has been recently admitted for increasing shortness of breath and productive cough and was noted to have elevated troponins. He has known mild to modest aortic valve stenosis. He was admitted after presenting to the emergency room last night. I last saw his left foot wound on May 01. At the time of my visit today the wound is wrapped and he does have an Reza bandage in place. He is currently receiving IV heparin and vancomycin. He is currently anemic with a hemoglobin at 8.1 with a noted 3 g drop since December of this year where he was 11.2 Venous duplex study today was negative for DVT. Review of Systems Const: Reports: fever(s), body aches, fatigue and malaise Eyes: Denies: change in vision or blurry vision Card: Reports: palpitations, dyspnea on exertion and orthopnea; Denies: chest pain Resp: Reports: dyspnea, productive cough and non-productive cough GI: Denies: abdominal pain, nausea or vomiting Musc: Reports: back pain Neuro: Denies: headache(s) or numbness in extremities Psych: Denies: anxiety or depression Medications/Allergies Home Medications Medication Instructions Recorded Confirmed Last Taken Type amlodipine 10 mg tablet 10 mg PO QAM 01/21/20 05/06/23 Unknown History terazosin 5 mg capsule 5 mg PO BID 08/18/20 05/06/23 Unknown History atorvastatin 80 mg tablet 80 mg PO BEDTIME 10/05/20 05/06/23 Unknown History cyclobenzaprine 10 mg tablet 10 mg PO BEDTIME PRN Muscle Spasm 06/14/21 05/06/23 Unknown History pentoxifylline 400 mg 400 mg PO BID 03/21/22 05/06/23 Unknown History tablet,extended release acetaminophen 500 mg tablet 1,500 mg PO BEDTIME 05/06/23 05/06/23 Unknown History albuterol sulfate 90 mcg/actuation 2 puff inhalation Q6H PRN 05/06/23 05/06/23 Unknown History aerosol inhaler Shortness Of Breath allopurinol 300 mg tablet 300 mg PO QAM 05/06/23 05/06/23 Unknown History aspirin 81 mg tablet,delayed 81 mg PO BEDTIME 05/06/23 05/06/23 Unknown History release bumetanide 2 mg tablet 2 mg PO BID 05/06/23 05/06/23 Unknown History cetirizine 10 mg tablet 10 mg PO BEDTIME 05/06/23 05/06/23 Unknown History insulin glargine 100 unit/mL (3 26 unit SUBCUT BEDTIME 05/06/23 05/06/23 Unknown History mL) subcutaneous pen (Lantus Solostar U-100 Insulin) insulin lispro 100 unit/mL See Rx Instructions .Route .COMPLEX 05/06/23 05/06/23 Unknown History subcutaneous pen metoprolol tartrate 100 mg tablet 150 mg PO BID 05/06/23 05/06/23 Unknown History sodium bicarbonate 650 mg tablet 1,300 mg PO BID 05/06/23 05/06/23 Unknown History umeclidinium 62.5 mcg/actuation 1 inh inhalation DAILY 05/06/23 05/06/23 Unknown History blister powder for inhalation (Incruse Ellipta) Allergies Allergy/AdvReac Type Severity Reaction Status Date / Time furosemide [From Lasix] Allergy Intermediate kidney Verified 05/06/23 08:57 complications walnut Allergy Unknown inknown Verified 05/06/23 08:57 morphine Allergy ADR-Halluci Verified 05/06/23 08:57 natjeny trazodone Allergy RASH Verified 05/06/23 08:57 Current Medications Generic Name Dose Route Start Last Admin Trade Name Jamin PRLeana Reason Stop Dose Admin Aspirin 81 mg 05/06/23 09:00 05/06/23 09:34 Aspirin 81 Mg Ec Tablet PO 81 mg DAILY KIM Administration Atorvastatin Calcium 80 mg 05/06/23 09:00 05/06/23 09:43 Atorvastatin 40 Mg Tablet PO 80 mg DAILY KIM Administration Heparin Sodium/Sodium Chloride 25,000 unit in 500 mls @ 0 mls/hr 05/06/23 07:00 05/06/23 15:34 Heparin Drip IV 10.74 unit/kg/hr .Q0M KIM 19 mls/hr Titration Protocol Per Protocol Piperacillin Sod/Tazobactam 50 mls @ 12.5 mls/hr 05/06/23 12:30 05/06/23 13:32 Sod 3.375 gm/ Sodium Chloride IV 12.5 mls/hr Q8H KIM Administration Protocol As Directed Vancomycin/PEG/NADA/Lysine/Water 1,250 mg in 250 mls @ 200 mls/hr 05/06/23 13:00 05/06/23 14:30 Vancocin IV 200 mls/hr Q36H KIM Administration Insulin Glargine 30 unit 05/06/23 09:00 05/06/23 09:58 Insulin Glargine 100 Units/1 Ml SUBCUT 30 unit Q24H KIM Administration Insulin Human Lispro 0 unit 05/06/23 08:00 05/06/23 12:57 Insulin Lispro 100 Unit/1 Ml SUBCUT 16 unit WM&BEDTIME KIM Administration Protocol Methimazole 5 mg 05/06/23 09:00 05/06/23 09:51 Methimazole 5 Mg Tablet PO 5 mg DAILY KIM Administration Metoprolol Tartrate 100 mg 05/06/23 09:00 05/06/23 09:34 Metoprolol Tartrate 50 Mg Tablet PO 100 mg DAILY KIM Administration Pantoprazole Sodium 40 mg 05/06/23 09:00 05/06/23 09:50 Pantoprazole 40 Mg Sdv IVP 40 mg Q12H KIM Administration Sucralfate 1 gm 05/06/23 08:30 05/06/23 09:43 Sucralfate 1 Gm Tablet PO 1 gm Q12H KIM Administration Tamsulosin HCl 0.4 mg 05/06/23 09:00 05/06/23 09:30 Tamsulosin 0.4 Mg Capsule PO Not Given DAILY KIM Terazosin HCl 5 mg 05/06/23 09:00 05/06/23 09:40 Terazosin 5 Mg Capsule PO 5 mg DAILY KIM Administration PFSH Acute PFSH: Medical History Chronic kidney disease Diabetes Graves disease History of tonsillitis Hypertension Surgical History History of amputation below knee History of cholecystectomy History of eye surgery History of knee surgery History of tonsillectomy and adenoidectomy Family History Grandmother Dementia Social History Smoking and tobacco status: former smoker Alcohol intake: never Substance/Drug Use: never Vitals/I&O/Wt Last Vital Signs Temp 98.5 F 05/06/23 09:20 Pulse 87 05/06/23 14:20 Resp 22 H 05/06/23 14:20 BP 120/59 05/06/23 14:20 Pulse Ox 97 05/06/23 14:20 O2 Del Method Room Air 05/06/23 14:20 05/06/23 05/06/23 05/06/23 06:59 14:59 22:59 Intake Total 300 / 300 818.1 / 818.1 174 / 992.1 Balance 300 / 300 818.1 / 818.1 174 / 992.1 Weight last 48 hrs Weight 187 lb Weight 195 lb Physical Exam HENMT: COMMON NORMALS: normocephalic and external ears normal HEAD & SCALP: normocephalic EXTERNAL EAR: Yes external ears normal Eye: COMMON NORMALS: EOMs intact bilaterally and no scleral icterus Neck/C-Spine: COMMON NORMALS: no lymphadenopathy Chest: COMMONS NORMALS: normal palpation of entire chest wall Resp: COMMON NORMALS: No retractions and No use of accessory muscles AUSCULTATION: wheezes expiratory wheezes and lower bilaterally (slight) Cardio: COMMON NORMALS: regular rate, regular rhythm and S1 normal heart sound present RATE: regular rate RHYTHM: regular rhythm HEART SOUNDS: S1 normal heart sound present and Murmur heart sound present systolic Location: right sternal border Intensity: I/ GI: COMMON NORMALS: Normal to inspection, nondistended, normoactive bowel sounds present Extremity: NARRATIVE EXTREMITY EXAM: right bka Desquamation over the circumferential region of the pretibial area on the left l ower extremity with hyperemia and chronic ulcerations to the dorsum of the left second and third toes with palpable bone exposed. This has been chronic and followed in wound care for quite some time. I feel this is a combination of both diabetic ulcer as well as severe PAD with renal insufficiency Neuro: OTHER: Hypoesthesia of the left foot and lower leg Data 05/06/23 13:15 05/06/23 13:15 Micro: Microbiology 05/05/23 21:25 Blood Culture - Preliminary Blood SPECIMEN COLLECTED 05/05/23 21:20 Blood Culture - Preliminary Blood SPECIMEN COLLECTED A&P Assessment and plan (1) Diabetic foot ulcer associated with diabetes mellitus due to underlying condition: Chronic ulceration and wound of the left foot is associated with diabetes mellitus and underlying peripheral arterial disease. Recommendations: I would recommend discontinuing use of an Reza bandage. I would continue to clean the foot daily with Hibiclens. Vitamin A&D ointment can be applied to areas of desquamation of the leg. I would apply PolyMem Ag or equivalent over the dorsum of the second and third toes and any other open areas and he would wrap the foot in Kerlix. I would avoid the use of an Reza bandage in relation to his known peripheral arterial disease Consult Attestations Medical Necessity Statement: Non-STEMI with diabetic foot ulcer and PAD Time Spent in Patient Care: 16 - 35 minutes Coding Level of Care Code Acute Code for Chg Fwd Diagnoses Diabetic foot ulcer associated with diabetes mellitus due to underlying condition E08.621; L97.509
[2023-05-06] MEDS: bumetanide 0.25 mg/mL SDV 4 mL 1 MG IVP (15:59)
--- NOTE | 2023-05-06 16:18 | P.PN_ITS ---
Subjective Subjective: - Patient was seen this morning -He tells me that his shortness of breath has improved, but does report orthopnea, paroxysmal nocturnal dyspnea -Does report sinus drainage -Denies any fevers, any chills -Does report shortness of breath, chest x-ray showing infiltrates, concerns for developing pneumonia, was on Rocephin azithromycin which was broadened to Vanco and Zosyn -Foot was unwrapped, has diabetic foot, on a lamination, foot is edematous, diffuse erythema, has foul order, open wounds and ulcerations to left second and third digits, possible bone exposed -Denies any chest pain -Does report chronic diabetic ulcer, of left lower extremity, managed with wound care, does report foul smelling drainage, increased drainage recently, -Does report increasing left lower extremity swelling -Does have calf tenderness we will order venous ultrasound -Patient was found to have NSTEMI, elevated troponins, placed on heparin drip, cardiac echo ordered -I had a detailed discussion about his elevated troponins, the issue is that his creatinine is 4.2, he has had a stress test in 2020, which showed evidence of of ischemia in the RCA territory -He confirms this, he told me that he does not want to have any angiogram his kidney doctor told me that if he ever received any angiogram he would end up on dialysis -Discussed options available to him, we will plan on potentially doing a stress test on him tomorrow morning -His hemoglobin is 8.1, will have to monitor, denies any bloody or black stools -Given his diabetic foot, I spoke to Dr. Stanford, about diabetic foot infection Vitals/I&O/Wt Last Vital Signs Temp 98.5 F 05/06/23 09:20 Pulse 87 05/06/23 14:20 Resp 22 H 05/06/23 14:20 BP 120/59 05/06/23 14:20 Pulse Ox 97 05/06/23 14:20 O2 Del Method Room Air 05/06/23 14:20 05/06/23 05/06/23 05/06/23 06:59 14:59 22:59 Intake Total 300 / 300 818.1 / 818.1 424 / 1242.1 Balance 300 / 300 818.1 / 818.1 424 / 1242.1 Weight last 48 hrs Weight 84.822 kg Weight 88.451 kg Physical Exam 2 Const: COMMON NORMALS: no acute distress and patient oriented x3 Resp: COMMON NORMALS: normal respiratory effort, No retractions and No use of accessory muscles AUSCULTATION: wheezes Cardio: COMMON NORMALS: regular rate, regular rhythm, S1 normal heart sound present and S2 normal heart sound present RATE: regular rate RHYTHM: regular rhythm HEART SOUNDS: S1 normal heart sound present and S2 normal heart sound present GI: COMMON NORMALS: Normal to inspection, nondistended, normoactive bowel sounds present and non-tender Extremity: NARRATIVE EXTREMITY EXAM: 1+ pitting edema Neuro: COMMON NORMALS: patient oriented x3 Psych: COMMON NORMALS: mental status grossly normal Data 05/06/23 13:15 05/06/23 13:15 Micro: Microbiology 05/05/23 21:25 Blood Culture - Preliminary Blood SPECIMEN COLLECTED 05/05/23 21:20 Blood Culture - Preliminary Blood SPECIMEN COLLECTED A&P Assessment and plan (1) Diabetic foot ulcer associated with diabetes mellitus due to underlying condition: (2) Peripheral arterial disease: (3) Pneumonia: (4) Uncontrolled diabetes mellitus: (5) Diabetes type 1, uncontrolled: (6) Aortic stenosis: (7) Shortness of breath: (8) Chronic kidney disease: (9) CKD (chronic kidney disease), stage V: (10) NSTEMI (non-ST elevated myocardial infarction): (11) Hyperglycemia: (12) Acute on chronic anemia: (13) Systolic CHF, acute on chronic: Plan Shortness of breath -Likely multifactorial from pneumonia -End systolic CHF Pneumonia -Follow blood cultures -Sputum cultures -Antibiotic therapy broadened to vancomycin, Zosyn -MRSA nares PCR -Monitor respiratory status closely Systolic CHF -Has received Bumex last night in the emergency room, takes Bumex at home -1 dose Bumex this afternoon -BNP over 3000 -Monitor urine output monitor creatinine NSTEMI -Type I versus type II -Given type 1 diabetes, history of positive stress test in 2020 and RCA territory , highly concerning for cardiac etiology -6-hour troponin was 67.1, delta 75.1, EKG no acute ST-T wave changes Cardiac echo -1.? This is a technically difficult study.? ?2.? Normal left ventricular cavity size. Grossly normal left ?ventricular systolic function. Left ventricular ejection ?fraction is estimated at 55 %.? Study is inadequate for ?estimation of regional wall motion abnormality. ?3.? Direct comparison to previous study 01/27/2023 is not ?possible due to technical differences in study. -Continue aspirin, statin, beta-lluvia -We will consider Plavix based on clinical progress -Continue heparin drip -N.p.o. 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 -No plans on dialysis as of yet he tells me Hypertension, continue home medications, continue beta-lluvia Full code Heparin for DVT prophylaxis Attestations Medical Necessity Statement*: Patient requires hospitalization for shortness of breath, pneumonia, CHF, NSTEMI, left foot diabetic ulcer, hyperglycemia Diagnoses Diabetic foot ulcer associated with diabetes mellitus due to underlying condition E08.621; L97.509 Peripheral arterial disease I73.9 Pneumonia J18.9 Uncontrolled diabetes mellitus Diabetes type 1, uncontrolled Aortic stenosis I35.0 Shortness of breath R06.02 Chronic kidney disease N18.9 CKD (chronic kidney disease), stage V N18.5 NSTEMI (non-ST elevated myocardial infarction) I21.4 Hyperglycemia R73.9 Acute on chronic anemia D64.9 Systolic CHF, acute on chronic I50.23
--- NOTE | 2023-05-06 16:35 | ECG_ITS ---
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 Interpretive Statements NAME OF STUDY: LEXISCAN SESTAMIBI STRESS TEST INDICATION: Shortness of Breath PROCEDURE: At the baseline, the EKG revealed sinus tachycardia with a rate of 104 bpm. Poor R wave progression. Left axis deviation. Features of possible old anterior wall myocardial infarction. Some nonspecific T wave changes. The baseline heart was 104 bpm with a blood pressue of 125/59 mm of Hg Lexiscan was infused over a period of 20 seconds. A total of 0.4 milligrams of Lexiscan was infused. The stress phase was continued for a total of 5 minutes. Heart rate at the end of the stress phase was 111 bpm with a blood pressure 115/62 mm of Hg. The EKG at the peak infusion revealed no significant changes. Sestamibi was injected 20 seconds after the Lexiscan infusion. Heart rate at the end of the recovery phase was 107 bpm with a blood pressure of 128/57 mm of Hg. CONCLUSION: 1. No significant EKG changes with the LexiScan infusion 2. No LexiScan induced chest pain or cardiac arrhythmia 3. Normal blood pressure and heart rate response 4. Sestamibi/sestamibi perfusion scan pending; see separate report. Electronically Signed On 05-07-2023 12:59:48 CDT by James Woodall M.D. [id number]
[2023-05-06 16:41] LABS: Erythrocyte Sedimentation Rate 20 mm/hr (0-10)
[2023-05-06 17:03] LABS: Glucose Point of Care 278 mg/dL (70-110)
[2023-05-06 18:10] LABS: Troponin T (5th) Once 548 ng/L (0-15)
--- NOTE | 2023-05-06 18:26 | ECG_ITS ---
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 Measurements Intervals [place] Rate: 88 P: 37 ND: 149 QRS: 32 QRSD: 97 T: 32 QT: 372 QTc: 452 Interpretive Statements SINUS RHYTHM Compared to ECG 05/06/2023 06:28:40 Sinus tachycardia no longer present Myocardial infarct finding no longer present Electronically Signed On 05-06-2023 21:40:50 CDT by James Woodall M.D. [id number]
[2023-05-06 19:34] LABS: Troponin(5th) Baseline 613 ng/L (0-15)
[2023-05-06] MEDS: clopidogrel 75 mg Tablet PO (19:48)
[2023-05-06 21:18] LABS: Glucose Point of Care 213 mg/dL (70-110)
[2023-05-06 21:26] LABS: Basophils # 0.1 10^3/uL (0.0-0.1); Basophils % 0.4 %; Eosinophils # 0.2 10^3/uL (0.0-0.8); Eosinophils % 1.6 %; Hematocrit 26.5 % (42.0-52.0); Hemoglobin 7.7 g/dL (11.7-16.6); Lymphocytes # 1.8 10^3/uL (0.8-4.8); Lymphocytes % 12.5 %; Mean Corpuscular HGB Conc 29.1 g/dL (30.0-36.0); Mean Corpuscular Hemoglobin 29.7 pg (28.0-34.0); Mean Corpuscular Volume 102.3 fl (80-94); Mean Platelet Volume 9.1 fL (7.4-10.4); Monocytes # 1.3 10^3/uL (0.2-0.9); Monocytes % 9.1 %; Neutrophils # 10.79 10^3/uL (1.8-7.7); Nucleated Red Blood Cells % 0 %; Platelet Count 330 10^3/cmm (130-400); Red Blood Count 2.59 10^6/uL (4.1-5.3); Red Cell Distribution Width 14.8 % (12.1-15.1); White Blood Count 14.2 10^3/uL (4.0-10.0)
[2023-05-06 21:54] LABS: Partial Thromboplastin Time 128.5 SECONDS (23.9-36.7)
[2023-05-06 21:58] LABS: Troponin 5 2HR 718.1 ng/L (0-15); Troponin 5 2HR Delta 105.1 ABS# (0-10)
--- NOTE | 2023-05-06 22:12 | ECG_ITS ---
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 Measurements Intervals [place] Rate: 87 P: 38 NE: 158 QRS: 32 QRSD: 99 T: 27 QT: 366 QTc: 441 Interpretive Statements SINUS RHYTHM Compared to ECG 05/06/2023 19:56:16 No significant changes Electronically Signed On 05-07-2023 20:29:24 CDT by Minerva Gee M.D. [id number]
[2023-05-06 22:34] LABS: Add Urine Microscopic? YES; Bilirubin Urine Neg (Negative); Blood Urine 3+ (Negative); Glucose Urine UA Norm (Normal); Ketones Urine Negative (Negative); Leukocyte Esterase Urine 2+ (Negative); Nitrate Urine Negative (Negative); Protein Urine 1+ (Negative); Specific Gravity, Urine 1.015 (1.005-1.030); Urine Appearance Hazy (CLEAR); Urine Color Yellow (Yellow); Urobilinogen Urine Norm (Negative); pH Urine 6 (5-7)
[2023-05-06 22:35] LABS: RBC Urine 25-40 /hpf (0-2)
[2023-05-06 22:36] LABS: Add Urine Culture? Yes; Bacteria Urine 1+ /hpf; Squamous Epithelial Cell Urine 0-4 /hpf (0-5); WBC Urine TOO NUMEROUS TO CNT /hpf (0-5)
[2023-05-07] VITALS (14 sets, daily range): BP systolic 120–139; BP diastolic 59–77; PULSE 90–110; RESP 16–29; TEMP 36.4–37.1; O2SAT 90–93
[2023-05-07 00:02] LABS: Glucose Point of Care 203 mg/dL (70-110)
[2023-05-07 00:52] LABS: Basophils # 0.1 10^3/uL (0.0-0.1); Basophils % 0.4 %; Eosinophils # 0.3 10^3/uL (0.0-0.8); Eosinophils % 1.8 %; Hematocrit 25.6 % (42.0-52.0); Hemoglobin 7.8 g/dL (11.7-16.6); Lymphocytes # 1.6 10^3/uL (0.8-4.8); Lymphocytes % 10.9 %; Mean Corpuscular HGB Conc 30.5 g/dL (30.0-36.0); Mean Corpuscular Hemoglobin 29.8 pg (28.0-34.0); Mean Corpuscular Volume 97.7 fl (80-94); Mean Platelet Volume 9.3 fL (7.4-10.4); Monocytes # 1.4 10^3/uL (0.2-0.9); Monocytes % 9.4 %; Neutrophils # 11.43 10^3/uL (1.8-7.7); Neutrophils % 76.9 %; Nucleated Red Blood Cells % 0 %; Platelet Count 351 10^3/cmm (130-400); Red Blood Count 2.62 10^6/uL (4.1-5.3); White Blood Count 14.9 10^3/uL (4.0-10.0)
[2023-05-07 01:22] LABS: Alanine Aminotransferase 7 U/L (0-41); Albumin Level 2.7 g/dL (3.5-5.2); Alkaline Phosphatase 96 U/L (40-130); Aspartate Amino Transferase 21 U/L (0-40); Calcium 8.6 mg/dL (8.5-10.5); Carbon Dioxide 22 mmol/L (22-29); Chloride 99 mmol/L (98-107); Glomerular Filtration Rate 15.2 mL/min (90-130); Glucose 142 mg/dL (65-115); Magnesium 2.1 mg/dL (1.7-2.3); Osmolality Calculated 305 mOsm/kg (285-295); Sodium 134 mmol/L (136-145); Total Bilirubin 0.2 mg/dL (0.15-1.2); Total Protein 5.7 g/dL (6.6-8.7)
[2023-05-07 01:30] LABS: Blood Urea Nitrogen 81 mg/dL (6-20)
[2023-05-07 01:35] LABS: NT Pro B Type Natriuretic Pept 25186 pg/mL (0-125); Procalcitonin 0.25 ng/mL (0-0.5)
--- NOTE | 2023-05-07 01:40 | ECG_ITS ---
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 Measurements Intervals [place] Rate: 90 P: 39 RI: 158 QRS: 29 QRSD: 98 T: 33 QT: 361 QTc: 443 Interpretive Statements SINUS RHYTHM Compared to ECG 05/06/2023 22:12:50 No significant changes Electronically Signed On 05-07-2023 20:27:59 CDT by Minerva Gee M.D. [id number]
[2023-05-07] MEDS: piperacillin-tazobactam 3.375 GM in sodium chloride 0.9% (plus) 50 ML IV ×3 (05:12→20:08)
[2023-05-07] MEDS: HYDROmorphone 1 mg/mL INJ 1 mL 0.5 MG IVP ×4 (05:36→22:01)
[2023-05-07 06:42] LABS: Glucose Point of Care 210 mg/dL (70-110)
[2023-05-07] MEDS: regadenoson 0.4 Mg/5 ml Syringe IVP (07:37)
[2023-05-07] MEDS: atorvastatin 40 mg Tablet 80 MG PO (09:13)
[2023-05-07] MEDS: clopidogrel 75 mg Tablet PO (09:13)
[2023-05-07] MEDS: methIMAzole 5 MG Tablet PO (09:13)
[2023-05-07] MEDS: terazosin 5 mg Capsule PO (09:13)
[2023-05-07] MEDS: metoprolol tartrate 50 mg Tablet 100 MG PO (09:13)
[2023-05-07] MEDS: sucralfate 1 gm Tablet PO ×2 (09:14→21:34)
[2023-05-07] MEDS: pantoprazole 40 mg SDV IVP ×2 (09:14→21:34)
[2023-05-07] MEDS: insulin lispro 100 unit/1 mL SUBCUT ×2 (09:15→12:52)
[2023-05-07] MEDS: insulin glargine 100 units/1 mL 30 UNIT SUBCUT (09:20)
[2023-05-07] MEDS: aspirin 81 mg EC Tablet PO (09:26)
--- NOTE | 2023-05-07 09:26 | PC.NURSE ---
pt is back from the nucelar medicine Dr at bedside. verified that heparin drip was off during stress test. received verbal order to restart the heparin drip same rate. confirmed to dr yang that the drip will restart at 14 mls/hr. Dr yang is ok.
[2023-05-07 09:57] LABS: Troponin T (5th) Once 673 ng/L (0-15)
[2023-05-07 10:08] LABS: Glucose Point of Care 310 mg/dL (70-110)
[2023-05-07 11:23] LABS: Glucose Point of Care 291 mg/dL (70-110)
[2023-05-07] MEDS: heparin drip 25,000 UNIT/500 ML PREMIX 14 UNIT IV (11:28)
[2023-05-07 14:34] LABS: Glucose Point of Care 191 mg/dL (70-110)
--- NOTE | 2023-05-07 15:55 | PM.PN ---
Subjective Subjective: - Patient was seen this morning, -He came back from stress test does not complain of chest pain, still complaining of some shortness of breath -We again discussed his elevated troponins there is high is a 820, 8 kg this morning shows no acute ST-T wave changes, telemetry does not show any significant ST elevations or arrhythmia events, -However again I am quite concerned about the risk of CAD and worsening CAD, but again he is adamant about not undergoing any coronary angiography - does not want to be put on dialysis, he does not want to have that quality of life -But but if it came to that he had to save his life, that his CAD was life-threatening, such as a STEMI, life-threatening arrhythmia, cardiogenic shock, or significant cardiac event, or he has crushing chest pain that he is agreeable to proceed with coronary angiography -He tells me he did okay with the stress test - Vitals/I&O/Wt Last Vital Signs Temp 97.6 F 05/07/23 08:00 Pulse 92 05/07/23 12:00 Resp 18 05/07/23 12:00 BP 120/65 05/07/23 12:00 Pulse Ox 91 05/07/23 12:00 O2 Del Method Room Air 05/07/23 12:00 05/07/23 05/07/23 05/07/23 06:59 14:59 22:59 Intake Total 721.267 / 2249.367 660.733 / 660.733 50 / 710.733 Balance 721.267 / 1899.367 660.733 / 660.733 50 / 710.733 Weight last 48 hrs Weight 84.822 kg Weight 88.451 kg Physical Exam Const: COMMON NORMALS: no acute distress and patient oriented x3 Resp: COMMON NORMALS: normal respiratory effort, No retractions, No use of accessory muscles and clear to auscultation bilaterally AUSCULTATION: clear to auscultation bilaterally Cardio: COMMON NORMALS: regular rate, regular rhythm, S1 normal heart sound present and S2 normal heart sound present RATE: regular rate RHYTHM: regular rhythm HEART SOUNDS: S1 normal heart sound present and S2 normal heart sound present GI: COMMON NORMALS: Normal to inspection, nondistended, normoactive bowel sounds present and non-tender Extremity: NARRATIVE EXTREMITY EXAM: 1+ pitting edema Neuro: COMMON NORMALS: patient oriented x3 Psych: COMMON NORMALS: mental status grossly normal Data 05/07/23 00:39 05/07/23 00:39 Micro: Microbiology 05/06/23 21:38 MRSA Culture - Final Nose 05/06/23 21:38 Occult Blood (FIT) - Final Stool 05/05/23 21:25 Blood Culture - Preliminary Blood NEGATIVE TO DATE 05/05/23 21:20 Blood Culture - Preliminary Blood NEGATIVE TO DATE A&P Assessment and plan (1) Diabetic foot ulcer associated with diabetes mellitus due to underlying condition: (2) Peripheral arterial disease: (3) Pneumonia: (4) Uncontrolled diabetes mellitus: (5) Diabetes type 1, uncontrolled: (6) Aortic stenosis: (7) Shortness of breath: (8) Chronic kidney disease: (9) CKD (chronic kidney disease), stage V: (10) NSTEMI (non-ST elevated myocardial infarction): (11) Hyperglycemia: (12) Acute on chronic anemia: (13) Systolic CHF, acute on chronic: Plan Shortness of breath -Likely multifactorial from pneumonia -Systolic CHF with elevated BNP Pneumonia -Follow blood cultures -Sputum cultures -Antibiotic therapy broadened to Zosyn -I stopped vancomycin as there is a risk of nephrotoxicity, given his GFR, I have switched to Zyvox -MRSA nares PCR -Monitor respiratory status closely Systolic CHF -Creatinine 4.1, still complains of shortness of breath -1 dose Bumex this afternoon -BNP over 25,000 -Monitor urine output monitor creatinine NSTEMI -Likely type I NSTEMI -Given type 1 diabetes, history of positive stress test in 2020 and RCA territory , highly concerning for cardiac etiology -6-hour troponin was 67.1, delta 75.1, EKG no acute ST-T wave changes Cardiac echo -1.? This is a technically difficult study.? ?2.? Normal left ventricular cavity size. Grossly normal left ?ventricular systolic function. Left ventricular ejection ?fraction is estimated at 55 %.? Study is inadequate for ?estimation of regional wall motion abnormality. ?3.? Direct comparison to previous study 01/27/2023 is not ?possible due to technical differences in study. 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 -No plans on dialysis as of yet he tells me -He does not want to have any type of coronary angiography unless he is going to -We will to monitor his creatinine very closely, given his severe CKD, I am being very judicious Bumex therapy Hypertension, continue home medications, continue beta-lluvia Full code Heparin for DVT prophylaxis Attestations Medical Necessity Statement*: Patient requires hospitalization for shortness of breath, NSTEMI, CKD V, undergoing stress testing, diabetic foot Diagnoses Diabetic foot ulcer associated with diabetes mellitus due to underlying condition E08.621; L97.509 Peripheral arterial disease I73.9 Pneumonia J18.9 Uncontrolled diabetes mellitus Diabetes type 1, uncontrolled Aortic stenosis I35.0 Shortness of breath R06.02 Chronic kidney disease N18.9 CKD (chronic kidney disease), stage V N18.5 NSTEMI (non-ST elevated myocardial infarction) I21.4 Hyperglycemia R73.9 Acute on chronic anemia D64.9 Systolic CHF, acute on chronic I50.23
[2023-05-07 15:57] LABS: Partial Thromboplastin Time 44.4 SECONDS (23.9-36.7)
--- NOTE | 2023-05-07 16:25 | CTR_ITS ---
PROCEDURE INFORMATION: Exam: CT Left Lower Extremity Without Contrast, Foot Exam date and time: 05/07/2023 8:43 AM Age: 58 years old Clinical indication: Difficulty in walking and swelling, leg or foot; Additional info: Diabetic foot, osteo? TECHNIQUE: Imaging protocol: CT of the left lower extremity without contrast was performed. Exam focused on the foot. Radiation optimization: All CT scans at this facility use at least one of these dose optimization techniques: automated exposure control; mA and/or kV adjustment per patient size (includes targeted exams where dose is matched to clinical indication); or iterative reconstruction. REPORTING DATA: Count of CT and Cardiac NM exams in prior 12 months: This patient has received 0 known CTs and 0 known cardiac nuclear medicine studies in the 12 months prior to the current study. COMPARISON: CR XR foot LT min 3V* [id number] 10/05/2020 9:20 AM RADIATION DOSE METRICS: Total DLP (mGy-cm): 144.41 FINDINGS: Bones/joints: Transverse fracture proximal phalanx shaft proximally at the 1st digit. No distraction. By appearance is acute or subacute. Generalized degenerative arthritis throughout articulations of the foot. No dominant destruction of bone although detection of early changes of osteomyelitis would yield a higher level of sensitivity with MRI. Calcaneal spur. Soft tissues: Soft tissue vascular calcification. Diffuse soft tissue edema. Minor calcification Achilles tendon insertion. Likely partial involvement of deep compartment soft tissues. No collection of soft tissue gas. Limitation for delineation of assessment for soft tissue abscess by the lack of contrast media. CT/CT foot LT wo con* [id number] IMPRESSION: 1. Generalized degenerative arthritis left foot. 2. Acute or subacute fracture proximal phalanx great toe. 3. Atherosclerotic vascular calcification. 4. Diffuse superficial and partial deep compartment soft tissue edema or cellulitis. 5. Consider MRI for a higher level sensitivity for osteomyelitis if clinically warranted.
[2023-05-07] MEDS: heparin 5,000 unit/mL INJ 1 mL IV (16:32)
--- NOTE | 2023-05-07 16:35 | NMCV_ITS ---
NM sherrie perf SPECT r/s* [id number] Matthew Barrios Age: 58 Gender: M : 1965 Exam Date: 05/07/2023 06:49 Ordering Phys: Donal Tran MD Technologist: SHANNAN Jiménez Exam Location: [facility] Indications: CHEST PAIN STRESS TEST Please see separate stress test report in [facility] for full findings IMAGE PROTOCOL Rest/Stress 1 Lexiscan Day Radiopharmaceutical Dose (mCi) Administration Site Administered by Rest: Tc-99m 10.9 IV SHANNAN Walters Sestamibi Stress:Tc-99m 32.9 IV SHANNAN Walters Sestamibi Rest: 07-May-2023 60 Discovery 630 Stress: 07-May-2023 30 Discovery 630 0.4mg Lexiscan. Supine position only as patient was unable to lay prone. SPECT RESULTS Technical Quality: Excellent Raw Data Analysis: Normal Image Corrections: No attenuation or motion correction applied Summed Stress Score: 20 Summed Rest Score: 14 Summed Difference Score: 6 PERFUSION FINDINGS Moderate area of moderate to severely decreased tracer uptake, involving the mid and apical inferior, mid inferolateral, mid anterolateral, apical lateral, apical septal and LV apex. Some reversibility was noted in all these regions except at the LV apex and apical inferior wall region. FUNCTIONAL RESULTS (calculated via Gated SPECT) Stress Image LV EF (%): 56 Stress EDV (mL):78 TID: 0.95 Stress ESV (mL):34 FUNCTIONAL FINDINGS: Segmental wall motion analysis revealing mild diffuse hypokinesia of the LV apex. IMPRESSIONS 1. Myocardial perfusion imaging revealing moderate area of moderate to severely decreased aseptic in the inferior, inferolateral, anterolateral and apical regions with some reversibility suggesting myocardial scarring with some ischemia in the distribution of the left circumflex artery predominantly with the some involvement in the right coronary artery. 2. Normal LV ejection fraction of 56%. 3. LV wall motion abnormalities as mentioned above. 4. Normal LV volume No similar previous studies are available for comparison Dr James Woodall MD [facility] (Electronically Signed) Final Date: 07 May 2023 11:45 S
[2023-05-07] MEDS: bumetanide 0.25 mg/mL SDV 4 mL 1 MG IVP (16:36)
[2023-05-07 16:43] LABS: Glucose Point of Care 116 mg/dL (70-110)
[2023-05-07 17:24] LABS: Troponin T (5th) Once 783 ng/L (0-15)
[2023-05-07 20:00] LABS: Basophils # 0.1 10^3/uL (0.0-0.1); Basophils % 0.4 %; Eosinophils # 0.4 10^3/uL (0.0-0.8); Eosinophils % 2.5 %; Hematocrit 25.3 % (42.0-52.0); Hemoglobin 7.8 g/dL (11.7-16.6); Lymphocytes # 1.7 10^3/uL (0.8-4.8); Lymphocytes % 12.3 %; Mean Corpuscular HGB Conc 30.8 g/dL (30.0-36.0); Mean Corpuscular Hemoglobin 29.9 pg (28.0-34.0); Mean Corpuscular Volume 96.9 fl (80-94); Mean Platelet Volume 9.2 fL (7.4-10.4); Monocytes # 1.2 10^3/uL (0.2-0.9); Monocytes % 8.6 %; Neutrophils # 10.62 10^3/uL (1.8-7.7); Neutrophils % 75.7 %; Nucleated Red Blood Cells % 0 %; Platelet Count 321 10^3/cmm (130-400); Red Blood Count 2.61 10^6/uL (4.1-5.3); Red Cell Distribution Width 15.2 % (12.1-15.1)
[2023-05-07 21:19] LABS: Glucose Point of Care 123 mg/dL (70-110)
[2023-05-07] MEDS: linezolid premix 600 MG/300 ML PREMIX 300 MG IV (21:33)
[2023-05-07 22:52] LABS: Partial Thromboplastin Time 92.8 SECONDS (23.9-36.7)
[2023-05-08] VITALS (14 sets, daily range): BP systolic 122–138; BP diastolic 63–80; PULSE 77–102; RESP 15–22; TEMP 36.4–36.7; O2SAT 91–96
[2023-05-08] MEDS: HYDROmorphone 1 mg/mL INJ 1 mL 0.5 MG IVP ×4 (01:33→20:45)
[2023-05-08] MEDS: piperacillin-tazobactam 3.375 GM in sodium chloride 0.9% (plus) 50 ML IV ×3 (04:15→20:19)
[2023-05-08 06:01] LABS: Basophils # 0.1 10^3/uL (0.0-0.1); Basophils % 0.5 %; Eosinophils # 0.4 10^3/uL (0.0-0.8); Eosinophils % 2.9 %; Hematocrit 27.1 % (42.0-52.0); Hemoglobin 8.4 g/dL (11.7-16.6); Lymphocytes # 1.6 10^3/uL (0.8-4.8); Lymphocytes % 12.3 %; Mean Corpuscular Hemoglobin 30.1 pg (28.0-34.0); Mean Corpuscular Volume 97.1 fl (80-94); Mean Platelet Volume 9.2 fL (7.4-10.4); Monocytes # 1.1 10^3/uL (0.2-0.9); Monocytes % 8.7 %; Neutrophils # 9.61 10^3/uL (1.8-7.7); Neutrophils % 74.8 %; Nucleated Red Blood Cells % 0 %; Platelet Count 347 10^3/cmm (130-400); Red Blood Count 2.79 10^6/uL (4.1-5.3); Red Cell Distribution Width 15.4 % (12.1-15.1); White Blood Count 12.8 10^3/uL (4.0-10.0)
[2023-05-08 06:14] LABS: Partial Thromboplastin Time 69.1 SECONDS (23.9-36.7)
[2023-05-08 06:20] LABS: Alanine Aminotransferase 7 U/L (0-41); Albumin Level 2.7 g/dL (3.5-5.2); Alkaline Phosphatase 92 U/L (40-130); Anion Gap 16.4 (5-19); Aspartate Amino Transferase 15 U/L (0-40); Blood Urea Nitrogen 64 mg/dL (6-20); Calcium 8.6 mg/dL (8.5-10.5); Carbon Dioxide 23 mmol/L (22-29); Chloride 100 mmol/L (98-107); Globulin 3.2 g/dL (1.3-4.6); Glomerular Filtration Rate 15.2 mL/min (90-130); Glucose 85 mg/dL (65-115); Osmolality Calculated 298 mOsm/kg (285-295); Potassium 4.4 mmol/L (3.5-5.1); Sodium 135 mmol/L (136-145); Total Bilirubin 0.2 mg/dL (0.15-1.2); Total Protein 5.9 g/dL (6.6-8.7)
[2023-05-08 06:46] LABS: Glucose Point of Care 92 mg/dL (70-110)
[2023-05-08 06:58] LABS: Troponin T (5th) Once 858 ng/L (0-15)
[2023-05-08 06:59] LABS: NT Pro B Type Natriuretic Pept 29583 pg/mL (0-125)
[2023-05-08] MEDS: ondansetron 2 mg/ML SDV 2 mL 4 MG IVP (07:26)
[2023-05-08] MEDS: metoprolol tartrate 50 mg Tablet 100 MG PO (09:09)
[2023-05-08] MEDS: tamsulosin 0.4 mg Capsule PO (09:09)
[2023-05-08] MEDS: terazosin 5 mg Capsule PO (09:09)
[2023-05-08] MEDS: insulin glargine 100 units/1 mL 30 UNIT SUBCUT (09:09)
[2023-05-08] MEDS: sucralfate 1 gm Tablet PO ×2 (09:09→20:20)
[2023-05-08] MEDS: aspirin 81 mg EC Tablet PO (09:09)
[2023-05-08] MEDS: clopidogrel 75 mg Tablet PO (09:10)
[2023-05-08] MEDS: atorvastatin 40 mg Tablet 80 MG PO (09:10)
[2023-05-08] MEDS: pantoprazole 40 mg SDV IVP ×2 (09:10→20:26)
[2023-05-08] MEDS: bumetanide 0.25 mg/mL SDV 4 mL 1 MG IVP (09:10)
[2023-05-08] MEDS: methIMAzole 5 MG Tablet PO (09:10)
--- NOTE | 2023-05-08 10:56 | PC.SOCIAL ---
[facility] IMM updated pg 2 of [facility] dated and reviewed withh pt. Copy provided. Copy dated, initialed and placed in chart. [id number]
[2023-05-08 10:58] LABS: Glucose Point of Care 233 mg/dL (70-110)
[2023-05-08] MEDS: linezolid premix 600 MG/300 ML PREMIX 300 MG IV ×2 (11:04→20:19)
[2023-05-08 12:13] LABS: Partial Thromboplastin Time 49.3 SECONDS (23.9-36.7)
[2023-05-08] MEDS: insulin lispro 100 unit/1 mL SUBCUT ×2 (12:57→17:16)
[2023-05-08 16:28] LABS: Partial Thromboplastin Time 62.9 SECONDS (23.9-36.7)
[2023-05-08 16:43] LABS: Glucose Point of Care 204 mg/dL (70-110)
--- NOTE | 2023-05-08 18:49 | PM.PN ---
Subjective Subjective: - Patient was seen this morning -Denies any chest pain, no palpitations -I had an in detail discussion about his stress test results -In my discussion with cardiology -The area of ischemia in the right coronary territory has increased compared to 2020 -Given his elevated troponins, would recommend coronary angiography -However given his creatinine his GFR he would almost certainly require dialysis -But its patient's own words that he does not want to live on dialysis, -Patient does not want to have coronary angiography -In his own words he tells me that if he is going to , or if he goes into a malignant arrhythmia, or if he has a STEMI, or if his life-threatening and he needs to have coronary angiography then he is going to say yes to it -But anything short of that, he wants to be medically managed -I discussed with him risks and benefits of medical management, morbidity and mortality associated with his CAD, he voiced understanding, all questions answered, for now he wants to be medically managed -Again remains chest pain-free Vitals/I&O/Wt Last Vital Signs Temp 97.7 F 05/08/23 16:00 Pulse 80 05/08/23 16:00 Resp 19 H 05/08/23 16:00 BP 127/63 05/08/23 16:00 Pulse Ox 95 05/08/23 16:00 O2 Del Method Room Air 05/08/23 16:00 05/08/23 05/08/23 05/08/23 06:59 14:59 22:59 Intake Total 877.5 / 2676.133 1031.3 / 1031.3 190 / 1221.3 Output Total 450 / 1250 1015 / 1015 515 / 1530 Balance 427.5 / 1426.133 16.3 / 16.3 -325 / -308.7 Physical Exam Const: COMMON NORMALS: no acute distress and patient oriented x3 Resp: COMMON NORMALS: normal respiratory effort, No retractions, No use of accessory muscles and clear to auscultation bilaterally AUSCULTATION: clear to auscultation bilaterally Cardio: COMMON NORMALS: regular rate, regular rhythm, S1 normal heart sound present and S2 normal heart sound present RATE: regular rate RHYTHM: regular rhythm HEART SOUNDS: S1 normal heart sound present and S2 normal heart sound present GI: COMMON NORMALS: Normal to inspection, nondistended, normoactive bowel sounds present and non-tender Extremity: COMMON NORMALS: no pedal edema Neuro: COMMON NORMALS: patient oriented x3 Psych: COMMON NORMALS: mental status grossly normal Data 05/08/23 05:45 05/08/23 05:45 Micro: Microbiology 05/06/23 17:43 Urine Culture - Preliminary Urine,Clean Catch 05/06/23 21:38 MRSA Culture - Final Nose A&P Assessment and plan (1) Diabetic foot ulcer associated with diabetes mellitus due to underlying condition: (2) Peripheral arterial disease: (3) Pneumonia: (4) Uncontrolled diabetes mellitus: (5) Diabetes type 1, uncontrolled: (6) Aortic stenosis: (7) Shortness of breath: (8) Chronic kidney disease: (9) CKD (chronic kidney disease), stage V: (10) NSTEMI (non-ST elevated myocardial infarction): (11) Hyperglycemia: (12) Acute on chronic anemia: (13) Systolic CHF, acute on chronic: Plan Shortness of breath -Likely multifactorial from pneumonia -Systolic CHF with elevated BNP Pneumonia -Follow blood cultures -Sputum cultures -Antibiotic therapy broadened to Zosyn -I stopped vancomycin as there is a risk of nephrotoxicity, given his GFR, I have switched to Zyvox -MRSA nares PCR -Monitor respiratory status closely Systolic CHF -Creatinine 4.1, still complains of shortness of breath -1 dose Bumex this afternoon -BNP over 25,000 -Monitor urine output monitor creatinine NSTEMI -Likely type I NSTEMI -Given type 1 diabetes, history of positive stress test in 2020 and RCA territory , highly concerning for cardiac etiology Patient's troponins are in the 800s, delta 75.1, EKG no acute ST-T wave changes Cardiac echo -1.? This is a technically difficult study.? ?2.? Normal left ventricular cavity size. Grossly normal left ?ventricular systolic function. Left ventricular ejection ?fraction is estimated at 55 %.? Study is inadequate for ?estimation of regional wall motion abnormality. ?3.? Direct comparison to previous study 01/27/2023 is not ?possible due to technical differences in study. -Continue aspirin, statin, plavix, beta-lluvia -Continue heparin drip for at least 48 hours -Cardiac stress testing -IMPRESSIONS ?1.? Myocardial perfusion imaging revealing moderate area of moderate to ?severely decreased aseptic in the inferior, inferolateral, anterolateral and ?apical regions with some reversibility suggesting myocardial scarring with some ?ischemia in the distribution of the left circumflex artery predominantly with ?the some involvement in the right coronary artery. ?2.? Normal LV ejection fraction of 56%. ?3.? LV wall motion abnormalities as mentioned above. ?4.? Normal LV volume -We will medically manage as per patient's wishes, asymptomatic, no chest pain Left foot diabetic foot -CT scan left foot 1. ? Generalized degenerative arthritis left foot. 2. ? Acute or subacute fracture proximal phalanx great toe. 3. ? Atherosclerotic vascular calcification. 4. ? Diffuse superficial and partial deep compartment soft tissue edema or cellulitis. 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 -No plans on dialysis as of yet he tells me -He does not want to have any type of coronary angiography unless he is going to -We will to monitor his creatinine very closely, given his severe CKD, I am being very judicious Bumex therapy Hypertension, continue home medications, continue beta-lluvia Acute/subacute fracture of proximal phalanx great toe, will discuss with podiatry Full code Heparin for DVT prophylaxis Attestations Medical Necessity Statement*: Patient requires hospitalization for NSTEMI, requiring medical management, positive stress test, cellulitis, fluid overload requiring diuresis, cellulitis Diagnoses Diabetic foot ulcer associated with diabetes mellitus due to underlying condition E08.621; L97.509 Peripheral arterial disease I73.9 Pneumonia J18.9 Uncontrolled diabetes mellitus Diabetes type 1, uncontrolled Aortic stenosis I35.0 Shortness of breath R06.02 Chronic kidney disease N18.9 CKD (chronic kidney disease), stage V N18.5 NSTEMI (non-ST elevated myocardial infarction) I21.4 Hyperglycemia R73.9 Acute on chronic anemia D64.9 Systolic CHF, acute on chronic I50.23
[2023-05-08] MEDS: heparin drip 25,000 UNIT/500 ML PREMIX 16 UNIT IV (20:18)
[2023-05-08 20:57] LABS: Glucose Point of Care 84 mg/dL (70-110)
[2023-05-08 22:24] LABS: Partial Thromboplastin Time 69.3 SECONDS (23.9-36.7)
[2023-05-09] VITALS (8 sets, daily range): BP systolic 135–141; BP diastolic 55–75; PULSE 81–97; RESP 16–22; TEMP 36.7; O2SAT 93–96
[2023-05-09] MEDS: HYDROmorphone 1 mg/mL INJ 1 mL 0.5 MG IVP ×3 (01:04→10:44)
[2023-05-09] MEDS: piperacillin-tazobactam 3.375 GM in sodium chloride 0.9% (plus) 50 ML IV ×2 (03:30→11:35)
[2023-05-09 05:04] LABS: Basophils # 0.1 10^3/uL (0.0-0.1); Basophils % 0.4 %; Eosinophils # 0.4 10^3/uL (0.0-0.8); Hematocrit 26.6 % (42.0-52.0); Hemoglobin 8.1 g/dL (11.7-16.6); Lymphocytes # 1.5 10^3/uL (0.8-4.8); Lymphocytes % 13.3 %; Mean Corpuscular HGB Conc 30.5 g/dL (30.0-36.0); Mean Corpuscular Volume 98.5 fl (80-94); Mean Platelet Volume 9.5 fL (7.4-10.4); Monocytes # 0.8 10^3/uL (0.2-0.9); Monocytes % 7.2 %; Neutrophils # 8.27 10^3/uL (1.8-7.7); Neutrophils % 74.4 %; Nucleated Red Blood Cells % 0 %; Platelet Count 357 10^3/cmm (130-400); Red Cell Distribution Width 15.3 % (12.1-15.1); White Blood Count 11.1 10^3/uL (4.0-10.0)
[2023-05-09 05:21] LABS: Partial Thromboplastin Time 51.8 SECONDS (23.9-36.7)
[2023-05-09 05:35] LABS: Alanine Aminotransferase 7 U/L (0-41); Albumin Level 2.5 g/dL (3.5-5.2); Alkaline Phosphatase 86 U/L (40-130); Anion Gap 17.6 (5-19); Aspartate Amino Transferase 12 U/L (0-40); Blood Urea Nitrogen 57 mg/dL (6-20); Calcium 8.2 mg/dL (8.5-10.5); Carbon Dioxide 23 mmol/L (22-29); Chloride 98 mmol/L (98-107); Globulin 2.4 g/dL (1.3-4.6); Glomerular Filtration Rate 17.1 mL/min (90-130); Glucose 84 mg/dL (65-115); Osmolality Calculated 293 mOsm/kg (285-295); Potassium 4.6 mmol/L (3.5-5.1); Sodium 134 mmol/L (136-145); Total Bilirubin 0.2 mg/dL (0.15-1.2); Total Protein 4.9 g/dL (6.6-8.7)
[2023-05-09] MEDS: heparin 5,000 unit/mL INJ 1 mL IV (05:38)
[2023-05-09 05:45] LABS: NT Pro B Type Natriuretic Pept 22241 pg/mL (0-125)
[2023-05-09 06:31] LABS: Glucose Point of Care 118 mg/dL (70-110)
[2023-05-09] MEDS: clopidogrel 75 mg Tablet PO (08:15)
[2023-05-09] MEDS: methIMAzole 5 MG Tablet PO (08:15)
[2023-05-09] MEDS: atorvastatin 40 mg Tablet 80 MG PO (08:15)
[2023-05-09] MEDS: linezolid premix 600 MG/300 ML PREMIX 300 MG IV (08:16)
[2023-05-09] MEDS: insulin glargine 100 units/1 mL 30 UNIT SUBCUT (08:16)
[2023-05-09] MEDS: terazosin 5 mg Capsule PO (08:16)
[2023-05-09] MEDS: pantoprazole 40 mg SDV IVP (08:16)
[2023-05-09] MEDS: sucralfate 1 gm Tablet PO (08:16)
[2023-05-09] MEDS: aspirin 81 mg EC Tablet PO (08:16)
[2023-05-09] MEDS: metoprolol tartrate 50 mg Tablet 100 MG PO (08:16)
[2023-05-09] MEDS: bumetanide 0.25 mg/mL SDV 4 mL 1 MG IVP (09:31)
[2023-05-09 11:13] LABS: Glucose Point of Care 207 mg/dL (70-110)
[2023-05-09] MEDS: insulin lispro 100 unit/1 mL SUBCUT (11:33)
[2023-05-09 11:54] LABS: Partial Thromboplastin Time 36.4 SECONDS (23.9-36.7)
--- NOTE | 2023-05-09 14:16 | P.DS_ITS ---
Discharge Providers Date of Admission: 05/05/23 22:54 Date of Discharge: May 09, 2023 Attending Provider at Admission: Anisa Chiu MD Attending Provider at Discharge: Donal Tran MD Primary Care Provider: Laverne Mcpherson MD Diagnoses at Discharge Discharge Diagnosis (1) Diabetic foot ulcer associated with diabetes mellitus due to underlying condition: Status: Acute (2) Peripheral arterial disease: Status: Acute (3) Pneumonia: Status: Acute (4) Uncontrolled diabetes mellitus: Status: Acute (5) Diabetes type 1, uncontrolled: Status: Acute (6) Aortic stenosis: Status: Acute (7) Shortness of breath: Status: Acute (8) Chronic kidney disease: Status: Acute (9) CKD (chronic kidney disease), stage V: Status: Acute (10) NSTEMI (non-ST elevated myocardial infarction): Status: Acute (11) Hyperglycemia: Status: Acute (12) Acute on chronic anemia: Status: Acute (13) Systolic CHF, acute on chronic: Status: Acute Reason for Visit Reason for Visit: sob, cough Hospital Course Hospital Course This is a 58-year-old male with a past medical history of insulin-dependent type 2 diabetes mellitus, CKD stage V, Graves' disease, hypertension, history of right below-knee amputation, history of left foot chronic diabetic foot who presents [facility] for shortness of breath Patient was admitted to [facility] for shortness of breath Shortness of breath, multifactorial from pneumonia, systolic CHF exacerbation for his pneumonia he received broad-spectrum antibiotic therapy, so far cultures have been unremarkable, overall clinically improved remained afebrile, discharged on doxycycline for his systolic CHF, given his creatinine of 4 which is about his baseline, he was carefully diuresed as his GFR was 15, overall with diuresis his shortness of breath improved, discharged on Bumex 1 mg twice daily For his left foot diabetic foot, managed with wound care, managed with broad- spectrum antibiotic therapy, [facility] with a follow-up with wound clinic as outpatient For his acute to subacute fracture of the proximal phalanx great toe, will manage medically, weightbearing as tolerated, follow-up with podiatry as outpatient NSTEMI -Likely type I NSTEMI -Given type 1 diabetes, history of positive stress test in 2020 and RCA territory , highly concerning for cardiac etiology Patient's troponins are in the 800s, delta 75.1, EKG no acute ST-T wave changes Cardiac echo -1.? This is a technically difficult study.? ?2.? Normal left ventricular cavity size. Grossly normal left ?ventricular systolic function. Left ventricular ejection ?fraction is estimated at 55 %.? Study is inadequate for ?estimation of regional wall motion abnormality. ?3.? Direct comparison to previous study 01/27/2023 is not ?possible due to technical differences in study. -Continue aspirin, statin, plavix, beta-lluvia -Cardiac stress testing -IMPRESSIONS ?1.? Myocardial perfusion imaging revealing moderate area of moderate to ?severely decreased aseptic in the inferior, inferolateral, anterolateral and ?apical regions with some reversibility suggesting myocardial scarring with some ?ischemia in the distribution of the left circumflex artery predominantly with ?the some involvement in the right coronary artery. ?2.? Normal LV ejection fraction of 56%. ?3.? LV wall motion abnormalities as mentioned above. ?4.? Normal LV volume -Patient was managed with anticoagulation, aspirin, Plavix, statin, beta-lluvia during this hospitalization -He denied any chest pain -He declined coronary angiography due to risk of contrast-induced nephropathy with a GFR of 15 -Discussed morbidity and mortality associated with NSTEMI -He voiced understanding, all questions answered, declined for now -In his words he only wants to have contrast dye if he were to going to and that is the only choice he had, anything short of that he does not want contrast dye, nor does he want to be put on dialysis, he tells me that he does not want to live on dialysis, that is not the quality of life he wants -We will medically manage as per patient's wishes, no chest pain -If he were to have any chest pain, he should call 911 and come to the hospital immediately Physical Exam Const: COMMON NORMALS: no acute distress and patient oriented x3 Resp: COMMON NORMALS: normal respiratory effort, No retractions, No use of ac cessory muscles and clear to auscultation bilaterally AUSCULTATION: clear to auscultation bilaterally Cardio: COMMON NORMALS: regular rate, regular rhythm, S1 normal heart sound present and S2 normal heart sound present RATE: regular rate RHYTHM: regular rhythm HEART SOUNDS: S1 normal heart sound present and S2 normal heart sound present GI: COMMON NORMALS: Normal to inspection, nondistended, normoactive bowel sounds present and non-tender Extremity: COMMON NORMALS: no pedal edema Neuro: COMMON NORMALS: patient oriented x3 Psych: COMMON NORMALS: mental status grossly normal Discharge Data Studies Completed and Pending Completed Studies During Hospitalization Category Date Time Status CT foot LT wo con* [id number] Routine Cat Scan 05/07/23 16:25 Completed Sestamibi Stress Test Request Routine Exams 05/06/23 16:35 Completed XR chest 1V portable [id number] Stat Exams 05/05/23 19:30 Completed NM sherrie perf SPECT r/s* [id number] Routine Nuc Med 05/07/23 16:35 [place] [id number] Stat Ultrasound 05/06/23 08:32 Completed CV. echo limited [id number] Routine Ultrasound 05/06/23 08:28 Completed Pending at discharge Category Date Time Status Blood Culture Stat Lab 05/05/23 21:25 Results Complete Blood Count w/Auto AM LABS Lab 05/10/23 04:00 Ordered Comprehensive Metabolic Panel AM LABS Lab 05/10/23 04:00 Ordered Sputum Culture and Gram Stain Routine Lab 05/06/23 06:57 Uncollected Urine Culture Routine Lab 05/06/23 17:43 Results Radiology Impressions Chest X-Ray 05/05/23 19:30 IMPRESSION: 1. Asymmetric right basal opacities which may be on the basis of atelectasis in the setting of small right pleural effusion. Superimposed aspiration/pneumonia not excluded in the appropriate clinical setting. 2. Mild basal pulmonary fibrosis. Foot CT 05/07/23 16:25 IMPRESSION: 1. Generalized degenerative arthritis left foot. 2. Acute or subacute fracture proximal phalanx great toe. 3. Atherosclerotic vascular calcification. 4. Diffuse superficial and partial deep compartment soft tissue edema or cellulitis. 5. Consider MRI for a higher level sensitivity for osteomyelitis if clinically warranted. Laboratory Results WBC 11.1 10^3/uL (4.0-10.0) H 05/09/23 04:08 RBC 2.70 10^6/uL (4.1-5.3) L 05/09/23 04:08 Hgb 8.1 g/dL (11.7-16.6) L 05/09/23 04:08 Hct 26.6 % (42.0-52.0) L 05/09/23 04:08 MCV 98.5 fl (80-94) H 05/09/23 04:08 MCH 30.0 pg (28.0-34.0) 05/09/23 04:08 MCHC 30.5 g/dL (30.0-36.0) 05/09/23 04:08 RDW 15.3 % (12.1-15.1) H 05/09/23 04:08 Plt Count 357 10^3/cmm (130-400) 05/09/23 04:08 MPV 9.5 fL (7.4-10.4) 05/09/23 04:08 Neut % (Auto) 74.4 % 05/09/23 04:08 Lymph % (Auto) 13.3 % 05/09/23 04:08 Story % (Auto) 7.2 % 05/09/23 04:08 Eos % (Auto) 4.0 % 05/09/23 04:08 Baso % (Auto) 0.4 % 05/09/23 04:08 Neut # (Auto) 8.27 10^3/uL (1.8-7.7) H 05/09/23 04:08 Lymph # (Auto) 1.5 10^3/uL (0.8-4.8) 05/09/23 04:08 Story # (Auto) 0.8 10^3/uL (0.2-0.9) 05/09/23 04:08 Eos # (Auto) 0.4 10^3/uL (0.0-0.8) 05/09/23 04:08 Baso # (Auto) 0.1 10^3/uL (0.0-0.1) 05/09/23 04:08 Nucleated RBC % (auto) 0 % 05/09/23 04:08 Nucleated RBCs # 0.0 /100WBC 05/09/23 04:08 ESR 20 mm/hr (0-10) H 05/06/23 13:15 APTT 36.4 SECONDS (23.9-36.7) 05/09/23 11:35 D-Dimer 1.11 ug/mIFEU (0-0.59) H 05/06/23 07:23 Specimen Type Arterial 05/05/23 22:48 Sample Site R,radial 05/05/23 22:48 ABG pH 7.35 (7.35-7.45) 05/05/23 22:48 ABG pCO2 40.6 mmHg (35-45) 05/05/23 22:48 ABG pO2 66.4 mmHg (80.0-100.0) L 05/05/23 22:48 ABG HCO3 28.6 mmol/L (22-26) H 05/05/23 22:48 ABG O2 Saturation 90.9 05/05/23 22:48 ABG Base Excess -3.1 mmol/L (-2.0-2.0) L 05/05/23 22:48 Prashant Test Pos 05/05/23 22:48 A-a O2 Gradient 32.2 mmHg (5-10) H 05/05/23 22:48 Hematocrit 28.6 % (42-52) L 05/05/23 22:48 Hgb O2 Saturation 88.3 % (95-100) L 05/05/23 22:48 Carboxyhemoglobin 0.5 %THgb (0.4-20.1) 05/05/23 22:48 Methemoglobin 2.4 % (0.4-1.5) H 05/05/23 22:48 Total Hemoglobin 9.3 g/dL (14-18) L 05/05/23 22:48 Sodium 133.0 mmol/L (131-143) 05/05/23 22:48 Potassium 3.4 mmol/L (3.5-5.0) L 05/05/23 22:48 Glucose 359.0 mg/dL (70-115) H 05/05/23 22:48 Ionized Calcium 1.2 mmol/L (1.1-1.4) 05/05/23 22:48 O2 Delivery Device None 05/05/23 22:48 FiO2 21.0 % 05/05/23 22:48 [employer] Manager ID ct 05/05/23 22:48 Sodium 134 mmol/L (136-145) L 05/09/23 04:08 Potassium 4.6 mmol/L (3.5-5.1) 05/09/23 04:08 Chloride 98 mmol/L (98-107) 05/09/23 04:08 Carbon Dioxide 23 mmol/L (22-29) 05/09/23 04:08 Anion Gap 17.6 (5-19) 05/09/23 04:08 BUN 57 mg/dL (6-20) H 05/09/23 04:08 Creatinine 3.7 mg/dL (0.7-1.2) H 05/09/23 04:08 GFR Calculation 17.1 mL/min (90-130) L 05/09/23 04:08 Glucose 84 mg/dL (65-115) 05/09/23 04:08 POC Glucose 207 mg/dL (70-110) H 05/09/23 11:09 Calculated Osmolality 293 mOsm/kg (285-295) 05/09/23 04:08 Calcium 8.2 mg/dL (8.5-10.5) L 05/09/23 04:08 Magnesium 2.1 mg/dL (1.7-2.3) 05/07/23 00:39 Iron 23 ug/dL (59-158) L 05/06/23 01:20 Ferritin 151 ng/mL (30-400) 05/06/23 01:20 Total Bilirubin 0.2 mg/dL (0.15-1.2) 05/09/23 04:08 AST 12 U/L (0-40) 05/09/23 04:08 ALT 7 U/L (0-41) 05/09/23 04:08 Alkaline Phosphatase 86 U/L (40-130) 05/09/23 04:08 Troponin T Baseline 613 ng/L (0-15) H* 05/06/23 18:43 Troponin T 120 Minute 718.1 ng/L (0-15) H 05/06/23 21:15 Delta Troponin T 105.1 ABS# (0-10) H* 05/06/23 21:15 Troponin T Gen 5 ng/L 858 ng/L (0-15) H* 05/08/23 05:45 Troponin T Hi Sens 6Hr 820.0 ng/L (0-15) H 05/07/23 00:39 Troponin T Hi Sens 6Hr Delta 207.0 ng/L (0-12) H* 05/07/23 00:39 C-Reactive Protein 79.0 mg/L (0.0-4.9) H 05/07/23 00:39 NT-Pro-B Natriuret Pep 37513 pg/mL (0-125) H 05/09/23 04:08 Total Protein 4.9 g/dL (6.6-8.7) L 05/09/23 04:08 Albumin 2.5 g/dL (3.5-5.2) L 05/09/23 04:08 Globulin 2.4 g/dL (1.3-4.6) 05/09/23 04:08 Procalcitonin 0.25 ng/mL (0-0.5) 05/07/23 00:39 Urine Color Yellow (Yellow) 05/06/23 17:43 Urine Appearance Hazy (CLEAR) A 05/06/23 17:43 Urine pH 6 (5-7) 05/06/23 17:43 Ur Specific [place] 1.015 (1.005-1.030) 05/06/23 17:43 Urine Protein 1+ (Negative) H 05/06/23 17:43 Urine Glucose (UA) Norm (Normal) 05/06/23 17:43 Urine Ketones Negative (Negative) 05/06/23 17:43 Urine Blood 3+ (Negative) H 05/06/23 17:43 Urine Nitrate Negative (Negative) 05/06/23 17:43 Urine Bilirubin Neg (Negative) 05/06/23 17:43 Urine Urobilinogen Norm mg/dL (Negative) 05/06/23 17:43 Ur Leukocyte Esterase 2+ (Negative) H 05/06/23 17:43 Urine RBC 25-40 /hpf (0-2) H 05/06/23 17:43 Urine WBC Too numerous to cnt /hpf (0-5) H 05/06/23 17:43 Ur Squamous Epith Cells 0-4 /hpf (0-5) H 05/06/23 17:43 Amorphous Sediment Not Reportable 05/06/23 17:43 Urine Bacteria 1+ /hpf (NONE) H 05/06/23 17:43 Serum Ketones Negative (Negative) 05/06/23 07:23 Vitals Last Vital Signs Temp 98.1 F 05/09/23 04:00 Pulse 81 05/09/23 12:00 Resp 18 05/09/23 12:00 BP 135/64 05/09/23 12:00 Pulse Ox 93 05/09/23 12:00 O2 Del Method Room Air 05/09/23 12:00 Discharge Plan Discharge Patient Disposition: Xfer SNF Condition: Stable Prescriptions: New methimazole 5 mg Tablet 5 mg PO DAILY 30 Days Qty: 30 0RF tamsulosin 0.4 mg Capsule 0.4 mg PO DAILY 30 Days Qty: 30 0RF doxycycline hyclate 100 mg tablet 100 mg PO BID 5 Days Qty: 10 0RF nitroglycerin 0.4 mg tablet, sublingual 0.4 mg sublingual Q5M PRN (Reason: chest pain) 30 Days Qty: 30 0RF Rx Instructions: do not exceed 3 doses per episode clopidogrel 75 mg Tablet 75 mg PO DAILY 30 Days Qty: 30 0RF Continued terazosin 5 mg capsule 5 mg PO BID amlodipine 10 mg tablet 10 mg PO QAM cyclobenzaprine 10 mg tablet 10 mg PO BEDTIME PRN (Reason: Muscle Spasm) atorvastatin 80 mg tablet 80 mg PO BEDTIME pentoxifylline 400 mg tablet extended release 400 mg PO BID Rx Instructions: must administer with a meal/food cetirizine 10 mg tablet 10 mg PO BEDTIME Aspir-81 81 mg Tablet,Delayed Release (Dr/Ec) 81 mg PO BEDTIME Tylenol Ex Str Rapid Release 500 mg Tablet 1,500 mg PO BEDTIME sodium bicarbonate 650 mg tablet 1,300 mg PO BID allopurinol 300 mg tablet 300 mg PO QAM albuterol sulfate 90 mcg/actuation HFA aerosol inhaler 2 puff INHALATION Q6H PRN (Reason: Shortness Of Breath) insulin lispro 100 unit/mL insulin pen See Rx Instructions .ROUTE .COMPLEX Rx Instructions: INJECT SUBCUTANEOUSLY PER SLIDING SCALE THREE TIMES DAILY BEFORE MEALS DIRECTED - MAX DAILY DOSE OF 40 UNITS Incruse Ellipta 62.5 mcg/actuation blister with device 1 inh INHALATION DAILY Changed metoprolol tartrate 100 mg tablet 50 mg PO BID 30 Days Qty: 30 0RF bumetanide 2 mg tablet 1 mg PO BID 30 Days Qty: 30 0RF Lantus Solostar U-100 Insulin 100 unit/mL (3 mL) insulin pen 26 unit SUBCUT QAM Qty: 3 0RF Discharge Orders: Discharge Order (Routine); Ordered 05/09/23 Ordered By: Donal Tran Referrals: [facility] [Outside] Laverne Mcpherson MD [Primary Care Provider] - Augie Andrade DPM [Physician] - 2 weeks Nader Fu M.D [Physician] - 4-7 days Discharge Diet: Cardiac Discharge Activity: Resume usual activity Patient Instructions: Metoprolol (By mouth) (Lopressor, Toprol XL), Nitroglycerin (By mouth) (Nitro-Time), Bumetanide (By mouth) (Bumex), Doxycycline (By mouth) (Acticlate, Adoxa, Avidoxy, Monodox, Doryx), Methimazole (By mouth) (Tapazole), Tamsulosin (By mouth) (Flomax), Clopidogrel (By mouth) (Plavix), Insulin Glargine (By injection) (Lantus, Lantus SoloStar, Toujeo, Semglee), Heart Failure (DC), CHF Stoplight, Opioid Safety, Post Heart Attack Stoplight Activity Restrictions/Additional Instructions: -Please monitor your blood sugars closely -Monitor your blood sugars 3 times daily as after meals -Please record your blood sugars, and a blood sugar log -For your NovoLog -Please inject blood sugar after meals based on sliding scale provided -Do not inject insulin if you do not eat as hypoglycemia kills -This is a NovoLog sliding scale -Insulin sliding ?fingerstick? Insulin ?141-180?0 units/sq 181-220?2 units/sq ?221-260?4 units/sq ?261-300 6 units/sq ?301-350?8 units/sq ?351-400 10 units/sq ?401-450?12 units/sq >450? 14units/sq -If your blood sugar is greater than 500 go to the emergency room -If your blood sugar is less than 60 or at anytime you feel lightheaded or dizzy or diaphoretic or have chest palpitations check your blood sugar, and eat a hard candy or drink orange juice and go immediately to the emergency room -Remember hypoglycemia kills, so if his blood sugar is less than 60 we have to increase it by taking in a sugary meal such as a hard candy or orange juice and go to the emergency room -If you have any questions please call us where here to help -If you have any chest pain please go to emergency room -Continue wound care of the lower extremity -Weightbearing as tolerated Discharge Attestations Time Spent in Discharge Care*: greater than 30 min Quality Metrics Clinical Quality Measures [ No reported AMI, CVA or VTE this stay] Coding Level of Care Code 72827 Total time (in minutes) for Discharge: 50 Diagnoses Diabetic foot ulcer associated with diabetes mellitus due to underlying condition E08.621; L97.509 Peripheral arterial disease I73.9 Pneumonia J18.9 Uncontrolled diabetes mellitus Diabetes type 1, uncontrolled Aortic stenosis I35.0 Shortness of breath R06.02 Chronic kidney disease N18.9 CKD (chronic kidney disease), stage V N18.5 NSTEMI (non-ST elevated myocardial infarction) I21.4 Hyperglycemia R73.9 Acute on chronic anemia D64.9 Systolic CHF, acute on chronic I50.23
--- NOTE | 2023-05-09 15:05 | PC.NURSE ---
Report called to [facility] at 15:00.
[2023-05-09 15:18] LABS: SARS Covid-2 Antigen negative (Negative)
== END 2023-05-09 16:30 | disposition skilled nursing facility (03) | DRG 280 ==
LOC: ER 23:49 → CSU 23:49
PROVIDERS: Admitting Provider Student in an Organized Health Care Education/Training Program; Emergency Provider Family Medicine; PCP Internal Medicine; Visit Provider Family Medicine
DX: I13.0 Hypertensive heart and chronic kidney disease with heart failure and stage 1 through stage 4 chronic kidney disease, or unspecified chronic kidney disease (principal); I50.23 Acute on chronic systolic (congestive) heart failure; I21.4 Non-ST elevation (NSTEMI) myocardial infarction; J18.9 Pneumonia, unspecified organism; N18.4 Chronic kidney disease, stage 4 (severe); E10.22 Type 1 diabetes mellitus with diabetic chronic kidney disease; E05.00 Thyrotoxicosis with diffuse goiter without thyrotoxic crisis or storm; Z89.511 Acquired absence of right leg below knee; E10.621 Type 1 diabetes mellitus with foot ulcer; L97.529 Non-pressure chronic ulcer of other part of left foot with unspecified severity; E10.65 Type 1 diabetes mellitus with hyperglycemia; E10.51 Type 1 diabetes mellitus with diabetic peripheral angiopathy without gangrene; S92.412A Displaced fracture of proximal phalanx of left great toe, initial encounter for closed fracture; X58.XXXA Exposure to other specified factors, initial encounter; Z79.82 Long term (current) use of aspirin; Z79.51 Long term (current) use of inhaled steroids; I35.0 Nonrheumatic aortic (valve) stenosis; D63.1 Anemia in chronic kidney disease; Z87.891 Personal history of nicotine dependence; I25.10 Atherosclerotic heart disease of native coronary artery without angina pectoris
CPT/HCPCS: 36415; 36416; 36600; 71045; 73700; 78452; 80048; 80051; 80053; 81001; 82009; 82274; 82330; 82728; 82805; 82962; 83540; 83735; 83880; 84145; 84484; 85014; 85018; 85025; 85049; 85378; 85651; 85730; 86140; 87040; 87086; 87426; 87641; 93005; 93017; 93308; 93970; 96365; 96367; 96372; 96375; 96376; 99285; A9500; C9113; J0456; J0696; J1170; J1644; J1815; J2020; J2405; J2543; J2785; J3370; J3490; J7050; Q0144

== ENCOUNTER → 2023-05-20 13:26 | Outpatient (BNVA) | payer MEDICARE, MEDICAID, SELFPAY | PROVIDERS: PCP Internal Medicine; Visit Provider Nurse Practitioner Family | DX: I21.4 Non-ST elevation (NSTEMI) myocardial infarction (principal); F17.210 Nicotine dependence, cigarettes, uncomplicated; I12.9 Hypertensive chronic kidney disease with stage 1 through stage 4 chronic kidney disease, or unspecified chronic kidney disease; N18.9 Chronic kidney disease, unspecified | CPT/HCPCS: 99213 ==

== ENCOUNTER 2023-06-02 08:33 | Inpatient (IN) | payer MEDICARE, MEDICAID, SELFPAY ==
[2023-06-02] VITALS (70 sets, daily range): BP systolic 102–143; BP diastolic 53–92; PULSE 94–123; RESP 3–34; TEMP 37.1–37.3; O2SAT 89–100; BMI 27.1
--- NOTE | 2023-06-02 08:36 | XRR_ITS ---
PROCEDURE INFORMATION: Exam: XR Chest Exam date and time: 06/02/2023 8:49 AM Age: 58 years old Clinical indication: Shortness of breath; Additional info: Dyspnea/cough TECHNIQUE: Imaging protocol: Radiologic exam of the chest. Views: 1 view. COMPARISON: CR (CHEST, ) 05/05/2023 8:18 PM FINDINGS: Lungs: Ill-defined ground-glass opacity in the mid lungs with consolidation in the lung bases bilaterally. Pleural spaces: The right lateral costophrenic sulcus is blunted. No pneumothorax. Heart/Mediastinum: Heart borders are obscured. Mediastinal contours are unremarkable. Diaphragm: The hemidiaphragms are obscured. Bones/joints: Bones are unremarkable. XR/XR chest 1V portable [id number] IMPRESSION: 1. Bilateral pulmonary opacity. Probable pulmonary edema. Infection is also possibility. 2. Right pleural effusion.
--- NOTE | 2023-06-02 08:36 | W.ED.SOB ---
HPI - SOB/Dyspnea General: Chief Complaint: Shortness of Breath/Dyspnea Stated Complaint: SOB Time Seen by Provider: 06/02/23 08:35 Source: patient and EMS Mode of arrival: EMS History of Present Illness: HPI Narrative: 58-year-old male presents emergency room complaining of shortness of breath. Patient is usual resident of a shelter. EMS was contacted the patient to be a 79% on room air when they arrived. Patient given DuoNeb with improvement of his breathing. He reports a moderately productive purulent cough he is not normally on oxygen. MD elicited complaint: shortness of breath Pertinent past history: COPD and congestive heart failure Onset (ago): hour(s) Exacerbating factors: exertion and coughing Relieving factors: oxygen and bronchodilators Known history of: COPD and congestive heart failure Associated symptoms: Deny abdominal pain, chest pain, fever(s), nausea, orthopnea or vomiting Review of Systems Const: Denies: fever(s), chills, fatigue or malaise ENMT: Denies: throat pain, ear or mastoid pain, nasal discharge or nasal congestion Card: Denies: chest pain, edema, dyspnea on exertion or orthopnea Resp: Denies: dyspnea, productive cough or non-productive cough GI: Denies: abdominal pain, nausea, vomiting, hematemesis, coffee ground emesis, diarrhea, constipation, bloating, hematochezia or melena : Denies: flank pain, dysuria, urinary frequency or urinary urgency Skin/Breast: Denies: rash or pruritus PFSH ED PFSH: Medical History Chronic kidney disease Diabetes Graves disease History of tonsillitis Hypertension Surgical History History of amputation below knee History of cholecystectomy History of eye surgery History of knee surgery History of tonsillectomy and adenoidectomy Family History Grandmother Dementia Social History Smoking and tobacco status: former smoker Alcohol intake: never Substance/Drug Use: never Physical Exam Const: GENERAL APPEARANCE: cooperative and comfortable ORIENTATION/CONSCIOUSNESS: Yes awake, Yes oriented to person, Yes oriented to place and Yes oriented to time HENMT: COMMON NORMALS: normocephalic, atraumatic and hearing grossly normal bilaterally HEAD & SCALP: normocephalic and atraumatic Resp: AUSCULTATION: rhonchi, wheezes and diminished lung sounds Cardio: COMMON NORMALS: regular rhythm and No murmurs present (Cardio) RATE: tachycardic RHYTHM: regular rhythm GI: COMMON NORMALS: Soft to palpation and No hepatosplenomegaly present AUSCULTATION: Yes normoactive bowel sounds PALPATION: Yes Soft to palpation, No Tenderness to palpation present (GI), No Guarding due to palpation present (GI) and Yes No hepatosplenomegaly present Extremity: OTHER: Edema left ankle with chronic wound in place no acute erythema right below the knee amputation Neuro: SENSORIUM/ORIENTATION: Yes oriented to person, Yes oriented to place and Yes oriented to time Skin: OTHER: Chronic wound left ankle Course Vital Signs: Vital signs: Vital Signs Temperature 98.7 F 06/02/23 08:34 Pulse Rate 101 H 06/02/23 11:39 Respiratory Rate 16 06/02/23 11:39 Blood Pressure 114/76 06/02/23 11:39 Pulse Oximetry 91 06/02/23 11:39 Oxygen Delivery Me thod Nasal Cannula 06/02/23 11:39 Oxygen Flow Rate 4 06/02/23 11:39 MDM - SOB/Dyspnea Medical Decision Making Pneumonia with overlying congestive heart failure end-stage renal disease. Will start on antibiotics. Patient will need to diurese mildly as well. Labs and imaging reviewed and discussed with patient discussed with hospitalist. Patient initially has peripheral artery disease and is being followed for a wound on his left ankle. Medical Records I reviewed the patient's medical records. Lab Data I reviewed the patient's lab results. 06/02/23 09:09 06/02/23 10:24 Labs/Radiology: Radiology Impressions Chest X-Ray 06/02/23 08:36 IMPRESSION: 1. Bilateral pulmonary opacity. Probable pulmonary edema. Infection is also possibility. 2. Right pleural effusion. Laboratory Results WBC 11.9 10^3/uL (4.0-10.0) H 06/02/23 09:09 RBC 2.71 10^6/uL (4.1-5.3) L 06/02/23 09:09 Hgb 8.1 g/dL (11.7-16.6) L 06/02/23 09:09 Hct 26.7 % (42.0-52.0) L 06/02/23 09:09 MCV 98.5 fl (80-94) H 06/02/23 09:09 MCH 29.9 pg (28.0-34.0) 06/02/23 09:09 MCHC 30.3 g/dL (30.0-36.0) 06/02/23 09:09 RDW 16.6 % (12.1-15.1) H 06/02/23 09:09 Plt Count 324 10^3/cmm (130-400) 06/02/23 09:09 MPV 9.7 fL (7.4-10.4) 06/02/23 09:09 Neut % (Auto) 80.3 % 06/02/23 09:09 Lymph % (Auto) 8.5 % 06/02/23 09:09 Elbert % (Auto) 9.5 % 06/02/23 09:09 Eos % (Auto) 1.0 % 06/02/23 09:09 Baso % (Auto) 0.4 % 06/02/23 09:09 Neut # (Auto) 9.58 10^3/uL (1.8-7.7) H 06/02/23 09:09 Lymph # (Auto) 1.0 10^3/uL (0.8-4.8) 06/02/23 09:09 Elbert # (Auto) 1.1 10^3/uL (0.2-0.9) H 06/02/23 09:09 Eos # (Auto) 0.1 10^3/uL (0.0-0.8) 06/02/23 09:09 Baso # (Auto) 0.1 10^3/uL (0.0-0.1) 06/02/23 09:09 Nucleated RBC % (auto) 0 % 06/02/23 09:09 Nucleated RBCs # 0.0 /100WBC 06/02/23 09:09 Sodium 135 mmol/L (136-145) L 06/02/23 10:24 Potassium 4.1 mmol/L (3.5-5.1) 08/13/23 10:24 Chloride 96 mmol/L (98-107) L 06/02/23 10:24 Carbon Dioxide 25 mmol/L (22-29) 06/02/23 10:24 Anion Gap 18.1 (5-19) 06/02/23 10:24 BUN 53 mg/dL (6-20) H 06/02/23 10:24 Creatinine 3.9 mg/dL (0.7-1.2) H 06/02/23 10:24 GFR Calculation 16.1 mL/min (90-130) L 06/02/23 10:24 Glucose 179 mg/dL (65-115) H 06/02/23 10:24 Calculated Osmolality 299 mOsm/kg (285-295) H 06/02/23 10:24 Lactic Acid 1.5 mmol/L (0.5-2.2) 06/02/23 09:09 Calcium 8.7 mg/dL (8.5-10.5) 06/02/23 10:24 Total Bilirubin 0.6 mg/dL (0.15-1.2) 06/02/23 10:24 AST 138 U/L (0-40) H 06/02/23 10:24 ALT 126 U/L (0-41) H 06/02/23 10:24 Alkaline Phosphatase 214 U/L (40-130) H 06/02/23 10:24 Total Protein 6.3 g/dL (6.6-8.7) L 06/02/23 10:24 Albumin 3.1 g/dL (3.5-5.2) L 06/02/23 10:24 Globulin 3.2 g/dL (1.3-4.6) 06/02/23 10:24 Discharge Plan Discharge Admit Provider: Anisa Chiu Clinical Impression: Community acquired pneumonia, Aortic stenosis, Diabetes type 1, uncontrolled, CKD (chronic kidney disease), stage V, Congestive heart failure Condition: Stable Coding Level of Care Code ED [employer] Dis[employer] for Gregorio Huffman
[2023-06-02 09:27] LABS: Basophils # 0.1 10^3/uL (0.0-0.1); Basophils % 0.4 %; Eosinophils # 0.1 10^3/uL (0.0-0.8); Hematocrit 26.7 % (42.0-52.0); Hemoglobin 8.1 g/dL (11.7-16.6); Lymphocytes % 8.5 %; Mean Corpuscular HGB Conc 30.3 g/dL (30.0-36.0); Mean Corpuscular Hemoglobin 29.9 pg (28.0-34.0); Mean Corpuscular Volume 98.5 fl (80-94); Mean Platelet Volume 9.7 fL (7.4-10.4); Monocytes # 1.1 10^3/uL (0.2-0.9); Monocytes % 9.5 %; Neutrophils # 9.58 10^3/uL (1.8-7.7); Neutrophils % 80.3 %; Nucleated Red Blood Cells % 0 %; Platelet Count 324 10^3/cmm (130-400); Red Blood Count 2.71 10^6/uL (4.1-5.3); Red Cell Distribution Width 16.6 % (12.1-15.1); White Blood Count 11.9 10^3/uL (4.0-10.0)
[2023-06-02] MEDS: levofloxacin-dextrose 5 % 750 MG/150 ML PREMIX 100 MG IV (09:29)
[2023-06-02 09:55] LABS: Lactic Sepsis W/Reflex 1.5 mmol/L (0.5-2.2)
--- NOTE | 2023-06-02 09:56 | PC.PHAR ---
PT HERE FROM [facility] MEDS VERIFIED USING MAR FROM [facility]
[2023-06-02 11:04] LABS: Alanine Aminotransferase 126 U/L (0-41); Albumin Level 3.1 g/dL (3.5-5.2); Alkaline Phosphatase 214 U/L (40-130); Anion Gap 18.1 (5-19); Aspartate Amino Transferase 138 U/L (0-40); Blood Urea Nitrogen 53 mg/dL (6-20); Calcium 8.7 mg/dL (8.5-10.5); Carbon Dioxide 25 mmol/L (22-29); Chloride 96 mmol/L (98-107); Globulin 3.2 g/dL (1.3-4.6); Glomerular Filtration Rate 16.1 mL/min (90-130); Glucose 179 mg/dL (65-115); Osmolality Calculated 299 mOsm/kg (285-295); Potassium 4.1 mmol/L (3.5-5.1); Sodium 135 mmol/L (136-145); Total Bilirubin 0.6 mg/dL (0.15-1.2); Total Protein 6.3 g/dL (6.6-8.7)
--- NOTE | 2023-06-02 11:23 | ECG_ITS ---
[facility] Test Date: 2023-06-02 Pat Name: Matthew Barrios Department: Room: Gender: Male Incident Response Analyst: : 1965 Requested By: Dom Haji Order Number: [id number] Yuliana MD: Morro Weston M.D. Measurements Intervals [place] Rate: 118 P: 58 CT: 132 QRS: -39 QRSD: 89 T: 77 QT: 330 QTc: 463 Interpretive Statements SINUS TACHYCARDIA WITH FREQUENT ECTOPIC PREMATURE COMPLEXES LEFT AXIS DEVIATION [QRS AXIS < -30] POSSIBLE ANTERIOR MYOCARDIAL INFARCTION , PROBABLY OLD [30 ms Q WAVE IN V3/V4, OR R < 0.2 mV IN V4] Compared to ECG 05/07/2023 01:40:13 Left-axis deviation now present Myocardial infarct finding now present Sinus rhythm no longer present Electronically Signed On 06-02-2023 11:34:29 CDT by Morro Weston M.D. [id number]
--- NOTE | 2023-06-02 12:46 | PC.NURSE ---
Transfer Note Patient transferred to ICU from ER via stretcher. Handoff received from [place]. Upon arrival to ICU patient is alert/oriented x4 on 2LNC. Patient oriented to environment and equipment. Covering service notified. Orders reviewed and will continue to monitor. Patient belongings include backpack, prosthetic right leg, glasses, shirt, hat, pajama pants, phone, phone steam table attendant at bedside. Patient has wound to left lower leg upon admission. Please see wound assessment for detail.
[2023-06-02 13:29] LABS: Adenovirus Not Detected (NOT DETECT); Chlamydia Pneumoniae Not Detected (NOT DETECT); Coronavirus 229E,HKU1,NL63,OC4 Not Detected (NOT DETECT); Human Metapneumovirus Not Detected (NOT DETECT); Human Rhinovirus/Enterovirus Not Detected (NOT DETECT); Influenza A Not Detected (NOT DETECT); Influenza A H1 Not Detected (NOT DETECT); Influenza A H1-2009 Not Detected (NOT DETECT); Influenza A H3 Not Detected (NOT DETECT); Influenza B Not Detected (NOT DETECT); Mycoplasma Pneumoniae Not Detected (NOT DETECT); Parainfluenza Virus Type 1 Not Detected (NOT DETECT); Parainfluenza Virus Type 2 Not Detected (NOT DETECT); Parainfluenza Virus Type 3 Not Detected (NOT DETECT); Parainfluenza Virus Type 4 Not Detected (NOT DETECT); Respiratory Syncytial Virus A Not Detected (NOT DETECT); Respiratory Syncytial Virus B Not Detected (NOT DETECT); SARS-COV-2 Not Detected (NOT DETECT)
--- NOTE | 2023-06-02 15:51 | USR_ITS ---
PROCEDURE INFORMATION: Exam: US Abdomen, Limited; Right Upper Quadrant Exam date and time: 06/02/2023 5:20 PM Age: 58 years old Clinical indication: Condition or disease; Other: Transaminitis; Prior surgery; Surgery date: 6+ months; Surgery type: Gb removed TECHNIQUE: Imaging protocol: Real time ultrasound of the abdomen with image documentation. Limited exam focused on the right upper quadrant. COMPARISON: No relevant prior studies available. FINDINGS: Liver: Unremarkable. Gallbladder: Surgically absent. Biliary ducts: Normal. No stones. No dilation. Pancreas: Unremarkable as visualized. Right kidney: Diminutive and echogenic, suggesting medical renal disease. No mass. No definite stones. No hydronephrosis. US/US liver [id number] IMPRESSION: Diminutive, echogenic right kidney, suggesting medical renal disease.
--- NOTE | 2023-06-02 15:52 | PM.HP ---
Providers/Chief Complaint Admitting Physician: Anisa Chiu MD Primary Care Provider: César Gallegos DO Chief Complaint: SOB History of Present Illness Matthew Barrios Jr is a 58 year old male with past medical history of stage IV chronic kidney disease, hypertension, diabetes, Graves' disease,recent hospitalization due to pneumonia, systolic CHF decompensation, NSTEMI, left LE chronic wound.He declined coronary angiogram due to risk of DIPAK. Since discharge home, he has been taking Bumex 1 mg daily however he has now ebeen experiencing increased shortness of breath for the past one week. His 02 sat today was 79% needing to be plaved on supplemental 02. CXR Shows signs of pulmonary venous congestion vs infiltrate. he denies any fever at home. ROS + cough, dyspnea and vomiting. Denies any current chest pain Review of Systems General: Reports: 10 or more systems reviewed and unremarkable except in HPI and below Const: Denies: fever(s), chills or body aches Eyes: Denies: change in vision, blurry vision or photophobia ENMT: Reports: hoarseness; Denies: throat pain, enlarged tonsils, odynophagia or nasal congestion Card: Denies: chest pain, palpitations, irregular heart rhythm, edema, swelling of feet/ankles, lightheadedness, pre-syncope, dyspnea on exertion or orthopnea Resp: Denies: dyspnea, productive cough, non-productive cough, wheezing, stridor, pain on inspiration, change in phlegm color, hemoptysis or chest congestion GI: Denies: abdominal pain, nausea, vomiting, hematemesis, coffee ground emesis, dysphagia, heartburn, diarrhea, constipation, GI cramping, change in stool character, hematochezia or melena : Denies: flank pain, dysuria, urinary frequency, urinary urgency, urinary hesitancy or hematuria Musc: Denies: neck pain, back pain, extremity pain, joint swelling, joint warmth or deformity Neuro: Denies: headache(s), numbness in extremities, weakness in extremities, sensory changes, difficulty walking, frequent falls, dizziness, vertigo, behavioral changes, Slurred speech present or seizure-like activity Psych: Denies: anxiety, depression, suicidal ideation or homicidal ideation Endo: Denies: polyuria, polydipsia, tired all the time, cold intolerance or hot flashes Himanshu/Lymph: Denies: easy bruising or easy bleeding Medications/Allergies Home Medications Medication Instructions Recorded Confirmed Last Taken Type amlodipine 10 mg tablet 10 mg PO QAM 01/21/20 06/02/23 06/02/23 History terazosin 5 mg capsule 5 mg PO BID 08/18/20 06/02/23 06/02/23 History atorvastatin 80 mg tablet 80 mg PO BEDTIME 10/05/20 06/02/23 06/01/23 History cyclobenzaprine 10 mg tablet 10 mg PO BEDTIME PRN Muscle Spasm 06/14/21 06/02/23 Unknown History pentoxifylline 400 mg 400 mg PO BID 03/21/22 06/02/23 06/02/23 History tablet,extended release albuterol sulfate 90 mcg/actuation 2 puff inhalation Q6H PRN 05/06/23 06/02/23 Unknown History aerosol inhaler Shortness Of Breath allopurinol 300 mg tablet 300 mg PO QAM 05/06/23 06/02/23 06/02/23 History aspirin 81 mg tablet,delayed 81 mg PO BEDTIME 05/06/23 06/02/23 06/02/23 History release cetirizine 10 mg tablet 10 mg PO BEDTIME 05/06/23 06/02/23 06/02/23 History insulin lispro 100 unit/mL See Rx Instructions .Route .COMPLEX 05/06/23 06/02/23 06/02/23 History subcutaneous pen sodium bicarbonate 650 mg tablet 1,300 mg PO BID 05/06/23 06/02/23 06/02/23 History umeclidinium 62.5 mcg/actuation 1 inh inhalation DAILY 05/06/23 06/02/23 06/02/23 History blister powder for inhalation (Incruse Ellipta) bumetanide 2 mg tablet 1 mg PO BID 30 days #30 tabs 05/09/23 06/02/23 06/02/23 Rx clopidogrel 75 mg tablet 75 mg PO DAILY 30 days #30 tabs 05/09/23 06/02/23 06/02/23 Rx methimazole 5 mg tablet 5 mg PO DAILY 30 days #30 tabs 05/09/23 06/02/23 06/02/23 Rx nitroglycerin 0.4 mg sublingual 0.4 mg sublingual Q5M PRN chest 05/09/23 06/02/23 Unknown Rx tablet pain 30 days #30 tabs tamsulosin 0.4 mg capsule 0.4 mg PO DAILY 30 days #30 caps 05/09/23 06/02/23 06/02/23 Rx acetaminophen 500 mg tablet 1,500 mg PO BEDTIME 05/20/23 06/02/23 06/01/23 History insulin glargine 100 unit/mL (3 38 unit SUBCUT QAM 05/20/23 06/02/23 06/02/23 History mL) subcutaneous pen (Lantus Solostar U-100 Insulin) acetaminophen 325 mg tablet 650 mg PO QID PRN Pain 06/02/23 06/02/23 Unknown History bisacodyl 10 mg rectal suppository 10 mg MI DAILY PRN Constipation 06/02/23 06/02/23 Unknown History (Dulcolax (bisacodyl)) bisacodyl 5 mg tablet,delayed 5 mg PO DAILY PRN Constipation 06/02/23 06/02/23 Unknown History release (Dulcolax (bisacodyl)) metoprolol tartrate 50 mg tablet 50 mg PO BID 06/02/23 06/02/23 06/02/23 History sodium phosphates 19 gram-7 118 ml MI DAILY PRN Constipation 06/02/23 06/02/23 Unknown History gram/118 mL enema (Fleet Enema) vitamins A and D-white See Rx Instructions .Route .COMPLEX 06/02/23 06/02/23 06/02/23 History petrolatum-lanolin topical ointment (A and D (nancy, pet) topical ointment) Allergies Allergy/AdvReac Type Severity Reaction Status Date / Time furosemide [From Lasix] Allergy Intermediate kidney Verified 06/02/23 09:55 complications [place] Allergy Unknown inknown Verified 06/02/23 09:55 morphine Allergy ADR-Halluci Verified 06/02/23 09:55 nating trazodone Allergy RASH Verified 06/02/23 09:55 PFSH Acute PFSH: Medical History Chronic kidney disease Diabetes Graves disease History of tonsillitis Hypertension Surgical History History of amputation below knee History of cholecystectomy History of eye surgery History of knee surgery History of tonsillectomy and adenoidectomy Family History Grandmother Dementia Social History Smoking and tobacco status: former smoker Alcohol intake: never Substance/Drug Use: never Vitals/I&O/Wt Last Vital Signs Temp 98.7 F 06/02/23 08:34 Pulse 121 H 06/02/23 15:37 Resp 16 06/02/23 11:39 BP 114/76 06/02/23 11:39 Pulse Ox 91 06/02/23 11:39 O2 Del Method Nasal Cannula 06/02/23 12:46 O2 Flow Rate 4 06/02/23 11:39 06/02/23 06/02/23 06/02/23 06:59 14:59 22:59 Intake Total 150 / 150 Balance 150 / 150 Weight last 48 hrs Weight 90.718 kg Physical Exam Narrative: General: No acute distress, AO x3 HEENT: PERRLA, pupils bilaterally equal and reactive, pallors not present Chest: Normal vesicular breath sounds, no added sounds, equal good air entry bilaterally CVS: S1-S2 regular, no murmurs, no tachycardia, no gallops, no rubs Abdomen: Soft, nontender, no organomegaly, bowel sounds present Neuro: No focal deficits, no facial deformity, AO x3, power 5/5 in all limbs Data 06/02/23 09:09 06/02/23 10:24 Micro: Microbiology 06/02/23 09:19 Blood Culture - Preliminary Blood SPECIMEN COLLECTED 06/02/23 09:09 Blood Culture - Preliminary Blood SPECIMEN COLLECTED A&P Assessment and plan (1) Congestive heart failure: Acute on chronic HF with preserved EF CXR with B/L pulmonary congestion Bumex 1 mg iv q12h monitor IO and kidney function Possible pneumonia given infiltrates on CXR - empiric treatment with ceftriaxone and azithromycin Denies any current chest pain (2) CKD (chronic kidney disease), stage V: renal function at baseline (3) Aortic stenosis: (4) Diabetes: insulin sliding scale (5) Transaminitis: check hepatitis panel and RUQ us may jenniffer related to hepatic congestion Attestations Medical Necessity Statement*: > 2 midnight admission is anticipated for above defined care, iv abx, iv diuresis, close monitoring of renal function Coding Level of Care Code Acute Code for Chg Fwd High MDM includes number and complexity of problems actively addressed during encounter, amount and/or complexity of data reviewed/ordered and described risk of complication, morbidity or mortality of management as documented Diagnoses Congestive heart failure I50.9 CKD (chronic kidney disease), stage V N18.5 Aortic stenosis I35.0 Diabetes E11.9 Transaminitis R74.01
[2023-06-02] MEDS: ipratropium-albuterol 3 mL Neb INHALATION ×2 (16:17→19:50)
[2023-06-02] MEDS: bumetanide 0.25 mg/mL SDV 4 mL 1 MG IVP (16:24)
[2023-06-02] MEDS: azithromycin 500 MG in sodium chloride 0.9% 250 ML 250 MG PO (16:24)
[2023-06-02] MEDS: cefTRIAXone 1,000 MG in sodium chloride 0.9% (plus) 50 ML 100 MG IV (16:25)
[2023-06-02] MEDS: heparin 5,000 unit/mL INJ 1 mL 5000 UNIT SUBCUT (16:33)
[2023-06-02 17:16] LABS: Glucose Point of Care 124 mg/dL (70-110)
[2023-06-02] MEDS: metoprolol tartrate 50 mg Tablet PO (17:48)
[2023-06-02] MEDS: sodium bicarbonate 650 mg Tablet 1300 MG PO (17:49)
[2023-06-02] MEDS: terazosin 5 mg Capsule PO (17:49)
[2023-06-02 20:26] LABS: Glucose Point of Care 113 mg/dL (70-110)
--- NOTE | 2023-06-02 21:10 | PC.NURSE ---
1943- assumed care of pt, pt on 6-7lnc with spo2 86-89%, pt recieved bumex and unable to urinate, dr lester notified, recieved order to place on bipap and insert rodriguez.
[2023-06-02 22:27] LABS: Hepatitis A Antibody IgM Non-Reactive (Nonreactive); Hepatitis B Core AB, Total Non-Reactive (Nonreactive); Hepatitis B Surface Antigen Non-Reactive (Nonreactive); Hepatitis C Virus Antibody Non-Reactive (Nonreactive)
[2023-06-02 22:29] LABS: Hepatitis B Surface AB < 3.5 (11.5-1000)
[2023-06-03] VITALS (207 sets, daily range): BP systolic 100–126; BP diastolic 55–75; PULSE 89–130; RESP 0–42; TEMP 36.5–37.2; O2SAT 86–99
[2023-06-03] MEDS: ipratropium-albuterol 3 mL Neb INHALATION ×4 (01:09→19:48)
[2023-06-03] MEDS: bumetanide 0.25 mg/mL SDV 4 mL 1 MG IVP ×2 (03:34→09:01)
[2023-06-03] MEDS: heparin 5,000 unit/mL INJ 1 mL 5000 UNIT SUBCUT ×2 (03:35→17:12)
[2023-06-03 04:44] LABS: Basophils % 0.3 %; Eosinophils # 0.1 10^3/uL (0.0-0.8); Eosinophils % 0.5 %; Hematocrit 24.4 % (42.0-52.0); Hemoglobin 7.4 g/dL (11.7-16.6); Lymphocytes # 0.9 10^3/uL (0.8-4.8); Lymphocytes % 8.6 %; Mean Corpuscular HGB Conc 30.3 g/dL (30.0-36.0); Mean Corpuscular Hemoglobin 30.1 pg (28.0-34.0); Mean Corpuscular Volume 99.2 fl (80-94); Mean Platelet Volume 9.8 fL (7.4-10.4); Monocytes % 9.9 %; Neutrophils % 80.3 %; Nucleated Red Blood Cells % 0 %; Platelet Count 301 10^3/cmm (130-400); Red Blood Count 2.46 10^6/uL (4.1-5.3); Red Cell Distribution Width 16.3 % (12.1-15.1); White Blood Count 9.8 10^3/uL (4.0-10.0)
[2023-06-03 05:13] LABS: Alanine Aminotransferase 84 U/L (0-41); Albumin Level 2.6 g/dL (3.5-5.2); Alkaline Phosphatase 174 U/L (40-130); Anion Gap 17.9 (5-19); Aspartate Amino Transferase 64 U/L (0-40); Blood Urea Nitrogen 60 mg/dL (6-20); Calcium 8.3 mg/dL (8.5-10.5); Carbon Dioxide 24 mmol/L (22-29); Chloride 100 mmol/L (98-107); Globulin 3.2 g/dL (1.3-4.6); Glomerular Filtration Rate 15.2 mL/min (90-130); Glucose 60 mg/dL (65-115); Osmolality Calculated 301 mOsm/kg (285-295); Potassium 3.9 mmol/L (3.5-5.1); Sodium 138 mmol/L (136-145); Total Bilirubin 0.3 mg/dL (0.15-1.2); Total Protein 5.8 g/dL (6.6-8.7)
--- OUTSIDE RECORDS SUMMARY | 2023-06-03 06:38 | XMS_ITS | Patient Health Record ---
Author Name Unknown Organization [facility] Address [address] [place] [address] Care Team Providers Care Relay Shop Supervisor Name Role Phone Laverne Mcpherson Primary Care Provider Barrera Ruiz Unavailable [phone] Katie Chisholm Unavailable [phone] ALLERGIES Allergen (clinical drug ingredient) Drug/Non Drug Allergy documented on EMR Reaction Allergy Type Onset Date Status Information temporarily unavailable Lasix Unknown Drug Allergy Active Information temporarily unavailable Morphine Unknown Drug Allergy Active Information temporarily unavailable Trazodone Unknown Drug Allergy Active REASON FOR REFERRAL No Information MEDICATIONS Medication SIG (Take, Route, Frequency, Duration) Notes Start Date End Date Status Bumetanide 2 MG 1 tablet Orally Twic e a day for 30 days 03/13/2023 Active Cyclobenzaprine HCl 10 MG 1 tablet Orall y twice daily as needed Active Calcium Carbonate 500 MG 1 tablet with f ood Orally At the start of breakfast Active Tylenol PM Extra Strength 500-25 MG 1 tablet at bedtime as needed Orally Once a day Active Terazosin HCl 5 MG Take 1 capsule by mo [facility] twice daily for 90 Active atorvastatin 80 MG Oral Tablet daily 04/29/2019 Active Sodium Bicarbonate 650 MG 2 tablets Oral ly BID for 90 days Active Amlodipine 10 MG Oral Tablet DAILY 03/20/2015 Active (w/Iron & FA) 27-0. 8 MG 1 tablet Orally Once a day Active Allopurinol 300 MG Take 1 tablet by esther th once daily for 30 Active Pentoxifylline 400 MG 1 tablet with meal s Orally Three times a day for 30 day(s) Active Ondansetron HCl 4 MG 1 tablet Orally cristal ry 6 hours prn Active Metoprolol Tartrate 100 MG TAKE 1 & 1/2 (ONE & ONE-HALF) TABLETS BY MOUTH TWICE DAILY for 90 Active methIMAzole 5 MG 1 tablet Orally 5 da ys weekly Active Lantus Active HumaLOG Active SOCIAL HISTORY Tobacco Use: Social History Observation Description Date Details (start date - stop date) Former Smoker NA - NA Sex Assigned At : Social History Observation Description Sex Assigned At Unknown Household Question Answer Notes Mandaeism: Mandaeism Level of education: finished college Tobacco Use/Smoking Question Answer Notes Are you a former smoker How long has it been since y ou last smoked? > 10 years Additional Findings: Tobacco User Heavy cigarett e smoker (20-39 cigs/day) PHQ-9 Question Answer Notes Little interest or pleasure in doing things Not at all Feeling down, depressed, or hopeless Not at all Trouble falling or staying asleep, or sleeping t oo much Not at all Feeling tired or having little energy Not at all Poor appetite or overeating Not at all Feeling bad about yourself, or that you are a failure, or have let yourself or your family down Not at all Trouble concentrating on thi ngs, such as reading the newspaper or watching television Not at all Moving or speaking so slowly that other people could have noticed. Or the opposite ? being so fidgety or restless that you have been moving around a lot more than usual Not at all Thoughts that you would be b susan off , or of hurting yourself in some way Not at all Total Score 0 PROBLEMS Problem Type ICD Code Onset Dates Problem Status W/U Status Risk SNOMED Code Notes Problem Anemia in chronic kidney disease (D63.1) Active confirmed 592908147 Problem Type 2 diabetes mellitus with diabetic chronic kidney disease (E11.22) Active confirmed Diabetic renal disease (202679473) Problem Hypertensive chronic kidney disease with stage 1 through stage 4 chronic kidney disease, or unspecified chronic kidney disease (I12.9) Active confirmed Chronic kidney disease due to hypertension (991337076523155) Problem End stage renal disease (N18.6) Active confirmed 55436898 Problem Dependence on renal dialysis (Z99.2) Active confirmed 289973554 Problem Iron deficiency anemia, unspecified iron deficiency anemia type (D50.9) Active confirmed Iron def iciency anemia (27937798) Problem Iron deficiency anemia, unspecified iron deficiency anemia type (D50.9) Active confirmed 77278580 Problem CKD (chronic kidney disease), stage III (N18.3) Active confirmed Chronic kidney disease stage 3 (910527406) Problem Nephrotic range proteinuria (R80.9) Active confirmed 683964406 Problem Hyperphosphatemia (E83.39) Active confirmed Hyperphosphatem ia (90189563) Problem Metabolic acidosis (E87.2) Active confirmed Metabolic acido sis (03533625) Problem Hypertension, benign (I10) Active confirmed Benign hyperten justice (30657466) Problem Hyperuricemia (E79.0) Active confirmed Hyperuricemia (14765514) Problem Diabetes (E11.9) Active confirmed Diabe nadeem mellitus without complication (839139150) Problem CKD (chronic kidney disease) stage 4, GFR 15-29 ml/min (N18.4) Active confirmed 732971873 Problem Anemia (D64.9) Active confirmed Anemia (068775442) Problem Hypoalbuminemia (E88.09) Active confirmed 115857726 Problem Proteinuria (R80.9) Active confirmed Pr oteinuria (71362523) Problem Chronic kidney disease, stage IV (severe) (N18.4) Active confirmed Chronic kid terri disease stage 4 (365720211) Problem Iron deficiency anemia secondary to inadequate dietary iron intake (D50.8) Active confirmed 426789623 Problem Type 2 diabetes mellitus with chronic kidney disease, without long-term current use of insulin, unspecified CKD stage (E11.22) Active confirmed Diabetic gabo l disease (275556560) Problem Chronic kidney disease due to diabetes mellitus (E11.22) Active confirmed Diabetic renal disease (760972412) Problem 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) Active confirmed Chronic kidney disease due to type 1 diabetes mellitus (01355454367981) Problem Chronic metabolic acidosis (E87.22) Active confirmed 78912988 VITAL SIGNS Heart Rate 71 /min 03/13/2023 Temperature 97.0 degrees Fahrenheit 03/13/2023 Oximetry 94 % 03/13/2023 Blood pressure diastolic 59 mm Hg 03/13/2023 Weight-kg 88.45 kg 03/13/2023 Height 71 in 03/13/2023 Blood pressure systolic 134 mm Hg 03/13/2023 Weight 195 lbs 03/13/2023 BMI 27.19 kg/m2 03/13/2023 Encounters Encounter Location Date Provider Diagnosis [facility] [address] [facility] [address] [place] [address] 08/27/2022 Katie Chisholm [facility] [address] [place] [address] 08/30/2022 [facility] [address] [place] [address] 10/23/2022 Barrera [facility] [address] [place] [address] 11/28/2022 Barrera Dejon CKD (chronic kidney disease) stage 4, GFR 15-29 ml/min N18.4 ; Metabolic acidosis E87.2 ; Hypoalbuminemia E88.09 ; Hyperphosphatemia E83.39 ; Iron deficiency anemia, unspecified iron deficiency anemia type D50.9 ; Anemia D64.9 ; FRANCISCO J (acute kidney injury) N17.9 ; Chronic kidney disease due to diabetes mellitus E11.22 and Anemia in chronic kidney disease D63.1 [facility] [address] [place] [address] 01/09/2023 Barrera [facility] [address] [facility] [address] [place] [address] 02/01/2023 Barrera Dejon Chronic kidney disea se due to diabetes mellitus E11.22 ; Hypertensive chronic kidney disease with stage 1 through stage 4 chronic kidney disease, or unspecified chronic kidney disease I12.9 ; Chronic kidney disease, stage IV (severe) N18.4 ; Hypoalbuminemia E88.09 ; Hyperphosphatemia E83.39 ; Nephrotic range proteinuria R80.9 ; Anemia in chronic kidney disease D63.1 ; Iron deficiency anemia, unspecified iron deficiency anemia type D50.9 ; Chronic metabolic acidosis E87.22 and Hyperuricemia E79.0 [facility] [address] [place] [address] 02/15/2023 Barrera [facility] [address] [place] [address] 03/13/2023 Barrera Dejon Chronic kidney disea se due to type 1 diabetes mellitus E10.22 ; Hypertensive chronic kidney disease with stage 1 through stage 4 chronic kidney disease, or unspecified chronic kidney disease I12.9 ; Chronic kidney disease, stage IV (severe) N18.4 ; Anemia in chronic kidney disease D63.1 ; Iron deficiency anemia, unspecified iron deficiency anemia type D50.9 ; Bilateral leg edema R60.0 ; Hypoalbuminemia E88.09 ; Chronic metabolic acidosis E87.22 ; Hyperuricemia E79.0 ; Nephrotic range proteinuria R80.9 ; Pharmacologic therapy Z79.899 ; Former smoker Z87.891 and Iron deficiency anemia secondary to inadequate dietary iron intake D50.8 [facility] [address] [place] [address] 12/13/2022 Barrera Ashford Chronic kidney disea se due to type 1 diabetes mellitus E10.22 ; Hypertensive chronic kidney disease with stage 1 through stage 4 chronic kidney disease, or unspecified chronic kidney disease I12.9 ; Chronic kidney disease, stage IV (severe) N18.4 ; Hypoalbuminemia E88.09 ; Nephrotic range proteinuria R80.9 ; Hyperphosphatemia E83.39 ; Anemia in chronic kidney disease D63.1 ; Iron deficiency anemia, unspecified iron deficiency anemia type D50.9 ; Chronic metabolic acidosis E87.22 ; Hyperuricemia E79.0 ; Pharmacologic therapy Z79.899 and Former smoker Z87.891 [facility] [address] [place] [address] 09/05/2022 Katie Chisholm [facility] [address] [place] [address] 06/06/2022 Katie Chisholm FRANCISCO J (acute kidney injury) N17.9 ; Chronic kidney disease due to diabetes mellitus E11.22 ; Hypertensive chronic kidney disease with stage 1 through stage 4 chronic kidney disease, or unspecified chronic kidney disease I12.9 ; Chronic kidney disease, stage IV (severe) N18.4 ; Metabolic acidosis E87.2 ; Hypoalbuminemia E88.09 ; Hyperphosphatemia E83.39 ; Anemia in chronic kidney disease D63.1 ; Iron deficiency anemia, unspecified iron deficiency anemia type D50.9 ; Pharmacologic therapy Z79.899 and Former smoker Z87.891 ASSESSMENTS Encounter Date Diagnosis Assessment Notes Treatment Notes Treatment Clinical Notes 06/06/2022 FRANCISCO J (acute kidney injury) (ICD-10 - N17.9) Acute Kidney Injury: Care Instructions material was printed 06/06/2022 Chronic kidney disease due to diabetes mellitus (ICD-10 - E11.22) 11/28/2022 CKD (chronic kidney disease) stage 4, GFR 15-29 ml/min (ICD-10 - N18.4) 12/13/2022 Hypertensive chronic kidney disease with stage 1 through stage 4 chronic kidney disease, or unspecified chronic kidney disease (ICD-10 - I12.9) 12/13/2022 Chronic kidney disease due to type 1 diabetes mellitus (ICD-10 - E10.22) 02/01/2023 Chronic kidney disease due to diabetes mellitus (ICD-10 - E11.22) 03/13/2023 Hypertensive chronic kidney disease with stage 1 through stage 4 chronic kidney disease, or unspecified chronic kidney disease (ICD-10 - I12.9) 03/13/2023 Chronic kidney disease due to type 1 diabetes mellitus (ICD-10 - E10.22) 03/13/2023 Chronic kidney disease, stage IV (severe) (ICD-10 - N18.4) 02/01/2023 Hypertensive chronic kidney disease with stage 1 through stage 4 chronic kidney disease, or unspecified chronic kidney disease (ICD-10 - I12.9) 12/13/2022 Chronic kidney disease, stage IV (severe) (ICD-10 - N18.4) 11/28/2022 Metabolic acidosis (ICD-10 - E87.2) 06/06/2022 Hypertensive chronic kidney disease with stage 1 through stage 4 chronic kidney disease, or unspecified chronic kidney disease (ICD-10 - I12.9) 06/06/2022 Chronic kidney disease, stage IV (severe) (ICD-10 - N18.4) 11/28/2022 Hypoalbuminemia (ICD-10 - E88.09) 12/13/2022 Hypoalbuminemia (ICD-10 - E88.09) 02/01/2023 Chronic kidney disease, stage IV (severe) (ICD-10 - N18.4) 03/13/2023 Anemia in chronic kidney disease (ICD-10 - D63.1) 03/13/2023 Iron deficiency anemia, unspecified iron deficiency anemia type (ICD-10 - D50.9) 02/01/2023 Hypoalbuminemia (ICD-10 - E88.09) 12/13/2022 Nephrotic range proteinuria (ICD-10 - R80.9) 11/28/2022 Hyperphosphatemia (ICD-10 - E83.39) 06/06/2022 Metabolic acidosis (ICD-10 - E87.2) 11/28/2022 Iron deficiency anemia, unspecified iron deficiency anemia type (ICD-10 - D50.9) 06/06/2022 Hypoalbuminemia (ICD-10 - E88.09) 12/13/2022 Hyperphosphatemia (ICD-10 - E83.39) 02/01/2023 Hyperphosphatemia (ICD-10 - E83.39) 03/13/2023 Bilateral leg edema (ICD-10 - R60.0) 03/13/2023 Hypoalbuminemia (ICD-10 - E88.09) 02/01/2023 Nephrotic range proteinuria (ICD-10 - R80.9) 12/13/2022 Anemia in chronic kidney disease (ICD-10 - D63.1) 11/28/2022 Anemia (ICD-10 - D64.9) 06/06/2022 Hyperphosphatemia (ICD-10 - E83.39) 06/06/2022 Anemia in chronic kidney disease (ICD-10 - D63.1) 12/13/2022 Iron deficiency anemia, unspecified iron deficiency anemia type (ICD-10 - D50.9) 11/28/2022 FRANCISCO J (acute kidney injury) (ICD-10 - N17.9) 02/01/2023 Anemia in chronic kidney disease (ICD-10 - D63.1) 03/13/2023 Chronic metabolic acidosis (ICD-10 - E87.22) 03/13/2023 Hyperuricemia (ICD-1 0 - E79.0) 12/13/2022 Chronic metabolic acidosis (ICD-10 - E87.22) 02/01/2023 Iron deficiency anemia, unspecified iron deficiency anemia type (ICD-10 - D50.9) 11/28/2022 Chronic kidney disease due to diabetes mellitus (ICD-10 - E11.22) 06/06/2022 Iron deficiency anemia, unspecified iron deficiency anemia type (ICD-10 - D50.9) 06/06/2022 Pharmacologic therap y (ICD-10 - Z79.899) 11/28/2022 Anemia in chronic kidney disease (ICD-10 - D63.1) 02/01/2023 Chronic metabolic acidosis (ICD-10 - E87.22) 12/13/2022 Hyperuricemia (ICD-1 0 - E79.0) 03/13/2023 Nephrotic range proteinuria (ICD-10 - R80.9) 03/13/2023 Pharmacologic therap y (ICD-10 - Z79.899) 02/01/2023 Hyperuricemia (ICD-1 0 - E79.0) 12/13/2022 Pharmacologic therap y (ICD-10 - Z79.899) 06/06/2022 Former smoker (ICD-1 0 - Z87.891) 12/13/2022 Former smoker (ICD-1 0 - Z87.891) 03/13/2023 Former smoker (ICD-1 0 - Z87.891) 03/13/2023 Iron deficiency anemia secondary to inadequate dietary iron intake (ICD-10 - D50.8) 12/13/2022 Other Increase dietary iron intake; monitor anemia labs. Continue current antihypertensives and monitor BP daily with goal less than 130/80. Dose medications for GFR less than 30 mL/minute. Avoid nephrotoxins. Risk factor modification. Low sodium diet. Increase Bumex to 1mg BID for volume control. Change calcium carbonate to 1 tablet at the start of breakfast. Stop cholecalciferol; monitor PTH, phosphorus, and calcium. Monitor total urine protein/creatinine and serum albumin. No dietary protein restriction. Follow-up in [address] Osuna's office. BMP, mag, uric, phos, PTH, hgb, iron indices, UA, urine protein, urine creatinine, albumin The patient was instructed to follow up with their PCP for preventative health screenings. IAnna LPN, am scribing for, and in the presence of Dr. Barrera Ashford. I, Dr. Barrera Ashford, personally performed the services described in this documentation, as scribed by Anna Danielson LPN in my presence, and it is both accurate and complete. 06/06/2022 Other Hemoglobin is b elow goal and he remains iron deficient. Check on IV iron at PCP's clinic. Continue metoprolol and amlodipine and monitor BP daily with goal less than 130/80. Dose medications for GFR less than 15 mL/minute. He has no uremic, metabolic, or reported hemodynamic indicaction for initiation of dialysis. Avoid nephrotoxins, NSAIDs, and IV contrast. Risk factor modification. Low sodium diet. Continue Bumex for volume control. Continue calcium carbonate and sodium bicarbonate. Continue cholecalciferol; monitor PTH, phosphorus, and calcium. Repeat labs in 1 month. Follow-up with Dr. Cherry in 3 months [address] labs at Dr[address] Osuna's office 1 week prior to appointment. The patient was instructed to follow up with their PCP for preventative health screenings. 03/13/2023 Other Increase Bumex to 2 mg qAM with 2mg in the early afternoon for swelling. Continue + iron and, again, increase dietary iron intake; monitor anemia labs. At this time, he refuses iron infusions. Dose medications for GFR less than 30 ml/min. Avoid nephrotoxins. Risk factor modification. Low sodium diet. Continue current antihypertensives and monitor BP daily with goal less than 130/80. Continue calcium carbonate and sodium bicarbonate; monitor PTH, phosphorus, and calcium. Monitor proteinuria and serum albumin. No dietary protein restriction. Follow-up in 3-4 months with labs at Dr. Osuna's office. BMP, mag, uric, phos, PTH, hgb, iron indices, UA, urine protein, urine creatinine, albumin The patient was instructed to follow up with their PCP for preventative health screenings PLAN OF TREATMENT Pending Test Test Name Order Date Albumin 25950 05/03/2020 Basic Metabolic Panel 90948 05/03/2020 Ferritin 01775 05/03/2020 Iron Binding Capacity Total 14016 2019 Iron Level 36950 05/03/2020 Phosphorus (B) 74451 05/03/2020 Protein (U) Random 87969 05/03/2020 Uric Acid (B) 37370 05/03/2020 Creatinine (U) 29113 05/03/2020 UA Reflex Micro, Reflex Cult 16480, 8101 5, 01076 05/03/2020 PTH Intact 70498 05/03/2020 Albumin 30529 12/29/2020 Basic Metabolic Panel 89077 12/29/2020 Ferritin 49160 12/29/2020 Hemoglobin 59262 12/29/2020 Magnesium (B) 47835 12/29/2020 Phosphorus (B) 73221 12/29/2020 Protein (U) Random 80271 12/29/2020 Uric Acid (B) 30217 12/29/2020 Creatinine (U) 00382 12/29/2020 UA Reflex Micro, Reflex Cult 74637, 8101 5, 88606 12/29/2020 PTH Intact 06494 12/29/2020 % Iron Saturation (Fe & TIBC)--42606,835 50 12/29/2020 Albumin 23670 11/28/2022 Basic Metabolic Panel 53700 11/28/2022 Ferritin 50658 11/28/2022 Hemoglobin 57317 11/28/2022 Iron Binding Capacity Total 50671 2022 Iron Level 20485 11/28/2022 Magnesium (B) 76422 11/28/2022 Phosphorus (B) 13727 11/28/2022 Protein (U) Random 11339 11/28/2022 Uric Acid (B) 83621 11/28/2022 Creatinine (U) 82105 11/28/2022 UA Reflex Micro, Reflex Cult 49716, 8101 5, 71715 11/28/2022 PTH Intact 15947 11/28/2022 % Iron Saturation (Fe & TIBC)--34269,835 50 11/28/2022 Future Test Test Name Order Date Basic Metabolic Panel -- 89997 Creatinine Urine -- 78458 01/25/2022 Ferritin -- 24896 01/25/2022 Iron Binding Capacity Total -- 79535 04/2022 Iron Level -- 30404 01/25/2022 Magnesium Level -- 43109 01/25/2022 Phosphorus Level -- 20769 01/25/2022 Protein Urine -- 94535 01/25/2022 UA Reflex -- 50589 01/25/2022 Uric Acid -- 63637 01/25/2022 PTH Intact--36702 01/25/2022 Hemoglobin 75189 01/25/2022 Albumin Serum--61984 01/25/2022 Albumin 82769 04/26/2022 Basic Metabolic Panel 59083 04/26/2022 Ferritin 37744 04/26/2022 Hemoglobin 69796 04/26/2022 Iron Binding Capacity Total 50553 2021 Iron Level 91089 04/26/2022 Magnesium (B) 24804 04/26/2022 Phosphorus (B) 33060 04/26/2022 Protein (U) Random 97912 04/26/2022 Uric Acid (B) 11421 04/26/2022 Creatinine (U) 39700 04/26/2022 UA Reflex Micro, Reflex Cult 65669, 8101 5, 13001 04/26/2022 Basic Metabolic Panel 48206 07/03/2022 UA Without Micro-Auto 53699 02/27/2023 Basic Metabolic Panel 36425 02/27/2023 Ferritin 98175 02/27/2023 Hemoglobin 72767 02/27/2023 Iron Binding Capacity Total 22226 2022 Iron Level 65687 02/27/2023 Magnesium (B) 11468 02/27/2023 Phosphorus (B) 45414 02/27/2023 Protein (U) Random 91415 02/27/2023 Uric Acid (B) 62843 02/27/2023 Microalbumin (U) Random 13029 02/27/2023 Creatinine (U) 70447 02/27/2023 PTH Intact 57282 02/27/2023 Albumin 26624 07/31/2023 Basic Metabolic Panel 68137 07/31/2023 Ferritin 81512 07/31/2023 Hemoglobin 82543 07/31/2023 Iron Binding Capacity Total 93177 2022 Iron Level 69314 07/31/2023 Magnesium (B) 44596 07/31/2023 Protein (U) Random 18881 07/31/2023 Uric Acid (B) 38867 07/31/2023 Creatinine (U) 58828 07/31/2023 UA Reflex Micro, Reflex Cult 89808, 8101 5, 30427 07/31/2023 PTH Intact 67474 07/31/2023 Next Appt Details Provider Name:Barrera Ashford, 07/31/2023 11:40:00 AM, [address], [place], [address], Insurance Providers Payer Name Payer Address Payer Phone Subscriber Number Group Number Insured Name Patient Relationship to Insured Coverage Start Date Coverage End Date [facility] Medicare Advantage HMO [address] [address] [place] [address] [phone] [id number] Matthew Barrios Self - patient is the insured [place] Medicaid [address] [place] [address] [id number] [phone] [id number] Denis Matthew Self - patient is the insured [place] Medicare [address] [facility] [phone] [id number] Denis Matthew Self - patient is the insured MEDICAL (GENERAL) HISTORY Medical History History ICD Code Type I Diabeties Hypertension Chronic kidney disease, stage IV Stroke COVID (07/2020) PAD Proteinuria Surgical History Surgery Date(Month/Year) right below the knee ampuation cholecystectomy cataract removal appendectomy Hospitalization History Reason Date(Month/Year) see surgical
[2023-06-03] MEDS: terazosin 5 mg Capsule PO ×2 (08:10→17:32)
[2023-06-03] MEDS: methIMAzole 5 MG Tablet PO (08:11)
[2023-06-03] MEDS: tamsulosin 0.4 mg Capsule PO (08:11)
[2023-06-03] MEDS: metoprolol tartrate 50 mg Tablet PO ×2 (08:11→17:11)
[2023-06-03] MEDS: pantoprazole DR 40 mg Tablet PO (08:11)
[2023-06-03] MEDS: sodium bicarbonate 650 mg Tablet 1300 MG PO ×2 (08:11→17:11)
[2023-06-03] MEDS: clopidogrel 75 mg Tablet PO (08:11)
[2023-06-03 08:25] LABS: Glucose Point of Care 101 mg/dL (70-110)
[2023-06-03] MEDS: acetaminophen 325 mg Tablet 650 MG PO ×2 (08:50→17:10)
[2023-06-03 11:17] LABS: Glucose Point of Care 154 mg/dL (70-110)
[2023-06-03] MEDS: insulin lispro 100 unit/1 mL SUBCUT ×3 (11:58→21:34)
--- NOTE | 2023-06-03 15:28 | P.PN_ITS ---
Subjective Subjective: He has been bothered by pain. He takes Tylenol at skilled nursing but it does not always take care of the pain for him. Reports some pain in the lower back. Discussed with him concerns regarding limited options on pain management. We did restart his Tylenol. Discussed NSAIDs are not an option due to his renal function, cardiac issues. Discussed additionally concern regarding use of opioids especially with poor renal function, other long-term risks, especially he states he used to have significant issues with constipation with opioids. Discussed for now continuation of Tylenol, additional flat can patch for lower back pain, and he will update us on response. He otherwise is feeling slightly better compared to yesterday in terms of his breathing. Reports that he was on 2 mg twice daily oral Bumex at skilled nursing prior to admission. States that he started becoming edematous when dose was reduced to 1 mg once daily. He is aware of his chronic kidney disease. Follows with nephrology. 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 He is aware that he is at risk of progression of renal failure and needing dialysis. Vitals/I&O/Wt Last Vital Signs Temp 98.5 F 06/03/23 08:15 Pulse 102 H 06/03/23 15:02 Resp 8 L 06/03/23 13:45 BP 115/75 06/03/23 13:45 Pulse Ox 90 06/03/23 13:45 O2 Del Method Nasal Cannula 06/03/23 13:15 O2 Flow Rate 5 06/03/23 13:15 FiO2 40 06/03/23 04:00 06/03/23 06/03/23 06/03/23 06:59 14:59 22:59 Intake Total 200 / 890 600 / 600 Output Total 900 / 1500 Balance -700 / -610 600 / 600 Weight last 48 hrs Weight 90.718 kg Physical Exam Const: COMMON NORMALS: patient oriented x3 and alert GENERAL APPEARANCE: cooperative ORIENTATION/CONSCIOUSNESS: Yes awake HENMT: COMMON NORMALS: oropharynx normal Neck/C-Spine: COMMON NORMALS: no JVD Resp: COMMON NORMALS: normal respiratory effort and clear to auscultation bilaterally AUSCULTATION: clear to auscultation bilaterally Cardio: COMMON NORMALS: no JVD, regular rhythm, S1 normal heart sound present, S2 normal heart sound present and No murmurs present (Cardio) RHYTHM: regular rhythm HEART SOUNDS: S1 normal heart sound present and S2 normal heart sound present GI: COMMON NORMALS: Normal to inspection, nondistended, normoactive bowel sounds present, Soft to palpation and non-tender PALPATION: Yes Soft to palpation Extremity: COMMON NORMALS: no joint enlargement OTHER: LLE edema 3+ below the knee, 1+ in the thigh. Mild erythema with edema and stasis below the left knee. RLE BKA Neuro: COMMON NORMALS: patient oriented x3 and moves all extremities SENSORIUM/ORIENTATION: Yes alert Skin: OTHER: Diabetic L foot wounds Urinary Catheter Management: Reed: Cath Placed During This Visit: yes Reason for Continuing Indwelling Catheter: Accurate Measurement of Urinary Output in Critically Ill Patients Urinary Catheter Date of Insertion: 06/02/23 Urinary Catheter Time of Insertion: 20:45 Data 06/03/23 04:17 06/03/23 04:17 Micro: Microbiology 06/02/23 11:33 Gram Stain - Final Sputum - Expectorated Sputum Sputum Culture - Preliminary 06/02/23 09:19 Blood Culture - Preliminary Blood NEGATIVE TO DATE 06/02/23 09:09 Blood Culture - Preliminary Blood NEGATIVE TO DATE A&P Assessment and plan (1) Congestive heart failure: He is pretty much neutral balance currently. Discussed with him regarding chronic kidney disease, risk of renal failure. He states that he is still quite edematous, needing additional diuresis. Noted 3+ lower extremity edema LLE, edema up to thighs 1+. No abdominal edema. Noted mild crackles. Still requiring 5 L nasal cannula oxygen. Acute decompensated CHF. Did not respond to 1 mg Bumex. States that prior to admission was on 2 mg oral Bumex. Discussed with him increasing Bumex to 3 mg twice daily. Continue to monitor CELINA. Reassess renal function. At risk of progression to renal failure, he is aware that he may end up needing dialysis. Monitor electrolytes, at risk of electrolyte disturbance. At risk of arrhythmia. Monitor on telemetry. Noted potassium 3.9, chloride 100, sodium 138. Bicarb 24, anion gap 17.9. Will check magnesium. Follow-up chemistry. Possible pneumonia given infiltrates on CXR -continue empiric treatment with ceftriaxone and azithromycin Denies any current chest pain As he is still in respiratory failure, decompensated CHF, at risk of renal failure, for now will continue treatment in ICU. (2) CKD (chronic kidney disease), stage V: renal function at baseline (3) Aortic stenosis: (4) Diabetes: insulin sliding scale (5) Transaminitis: Noted negative hepatitis panel and RUQ us with unremarkable appearing liver. may jenniffer related to hepatic congestion Hold statin for now. Follow-up liver parameters. Plan Diabetic foot wounds: Add wound care Discussed with case management. Attestations Medical Necessity Statement*: Continue admission for assessment management of decompensated CHF, respiratory failure and gentleman with underlying CKD, at risk of renal failure. Diagnoses Congestive heart failure I50.9 CKD (chronic kidney disease), stage V N18.5 Aortic stenosis I35.0 Diabetes E11.9 Transaminitis R74.01
[2023-06-03 17:00] LABS: Glucose Point of Care 185 mg/dL (70-110)
[2023-06-03] MEDS: azithromycin 500 MG in sodium chloride 0.9% 250 ML 250 MG PO (17:11)
[2023-06-03] MEDS: cefTRIAXone 1,000 MG in sodium chloride 0.9% (plus) 50 ML 100 MG IV (17:11)
[2023-06-03] MEDS: bumetanide 0.25 mg/mL SDV 10 mL 3 MG IVP (17:12)
[2023-06-03] MEDS: lidocaine 5% Patch 1 PATCH TOPICAL (17:13)
[2023-06-03 21:25] LABS: Glucose Point of Care 164 mg/dL (70-110)
[2023-06-03] MEDS: acetaminophen 500 mg Tablet 1000 MG PO (21:34)
[2023-06-03] MEDS: aspirin 81 mg EC Tablet PO (21:34)
[2023-06-04] VITALS (31 sets, daily range): BP systolic 94–136; BP diastolic 60–75; PULSE 91–124; RESP 4–37; O2SAT 85–100
[2023-06-04] MEDS: cyclobenzaprine 10 mg Tablet PO ×3 (00:11→23:09)
[2023-06-04] MEDS: ipratropium-albuterol 3 mL Neb INHALATION ×4 (02:02→19:08)
[2023-06-04] MEDS: heparin 5,000 unit/mL INJ 1 mL 5000 UNIT SUBCUT ×2 (03:56→16:02)
[2023-06-04] MEDS: bumetanide 0.25 mg/mL SDV 10 mL 3 MG IVP (03:56)
[2023-06-04 05:27] LABS: Glucose Point of Care 82 mg/dL (70-110)
[2023-06-04] MEDS: amlodipine 10 mg Tablet PO (05:28)
[2023-06-04] MEDS: allopurinol 300 mg Tablet PO (05:28)
[2023-06-04 05:53] LABS: Basophils % 0.2 %; Eosinophils # 0.2 10^3/uL (0.0-0.8); Eosinophils % 1.9 %; Hematocrit 26.6 % (42.0-52.0); Hemoglobin 8.2 g/dL (11.7-16.6); Lymphocytes # 1.1 10^3/uL (0.8-4.8); Mean Corpuscular HGB Conc 30.8 g/dL (30.0-36.0); Mean Corpuscular Hemoglobin 30.5 pg (28.0-34.0); Mean Corpuscular Volume 98.9 fl (80-94); Mean Platelet Volume 9.6 fL (7.4-10.4); Monocytes # 0.9 10^3/uL (0.2-0.9); Monocytes % 8.2 %; Neutrophils # 9.05 10^3/uL (1.8-7.7); Neutrophils % 79.3 %; Nucleated Red Blood Cells % 0 %; Platelet Count 311 10^3/cmm (130-400); Red Blood Count 2.69 10^6/uL (4.1-5.3); Red Cell Distribution Width 16.3 % (12.1-15.1); White Blood Count 11.4 10^3/uL (4.0-10.0)
[2023-06-04 06:14] LABS: Alanine Aminotransferase 65 U/L (0-41); Albumin Level 2.9 g/dL (3.5-5.2); Alkaline Phosphatase 176 U/L (40-130); Anion Gap 19.9 (5-19); Aspartate Amino Transferase 39 U/L (0-40); Blood Urea Nitrogen 64 mg/dL (6-20); Calcium 8.6 mg/dL (8.5-10.5); Carbon Dioxide 25 mmol/L (22-29); Chloride 97 mmol/L (98-107); Globulin 3.3 g/dL (1.3-4.6); Glomerular Filtration Rate 13.6 mL/min (90-130); Glucose 75 mg/dL (65-115); Magnesium 2.2 mg/dL (1.7-2.3); Osmolality Calculated 303 mOsm/kg (285-295); Potassium 3.9 mmol/L (3.5-5.1); Sodium 138 mmol/L (136-145); Total Bilirubin 0.3 mg/dL (0.15-1.2); Total Protein 6.2 g/dL (6.6-8.7)
[2023-06-04 06:56] LABS: Glucose Point of Care 90 mg/dL (70-110)
[2023-06-04 08:14] LABS: Glucose Point of Care 117 mg/dL (70-110)
[2023-06-04] MEDS: metoprolol tartrate 50 mg Tablet PO ×2 (08:18→17:06)
[2023-06-04] MEDS: pantoprazole DR 40 mg Tablet PO (08:18)
[2023-06-04] MEDS: terazosin 5 mg Capsule PO ×2 (08:18→17:07)
[2023-06-04] MEDS: sodium bicarbonate 650 mg Tablet 1300 MG PO ×2 (08:18→17:07)
[2023-06-04] MEDS: tamsulosin 0.4 mg Capsule PO (08:18)
[2023-06-04] MEDS: methIMAzole 5 MG Tablet PO (08:19)
[2023-06-04] MEDS: clopidogrel 75 mg Tablet PO (08:19)
[2023-06-04] MEDS: lidocaine 5% Patch 1 PATCH TOPICAL ×2 (08:36→21:36)
[2023-06-04 11:51] LABS: Glucose Point of Care 200 mg/dL (70-110)
[2023-06-04] MEDS: acetaminophen 325 mg Tablet 650 MG PO (12:06)
[2023-06-04] MEDS: lanolin oint 7 gm 1 APPLIC TOPICAL (12:09)
[2023-06-04] MEDS: insulin lispro 100 unit/1 mL SUBCUT ×3 (12:14→21:37)
[2023-06-04] MEDS: cefTRIAXone 1,000 MG in sodium chloride 0.9% (plus) 50 ML 100 MG IV (16:01)
[2023-06-04] MEDS: metOLazone 5 MG Tablet PO (16:02)
[2023-06-04] MEDS: azithromycin 500 MG in sodium chloride 0.9% 250 ML 250 MG PO (16:02)
[2023-06-04 16:54] LABS: Glucose Point of Care 153 mg/dL (70-110)
--- NOTE | 2023-06-04 17:48 | P.PN_ITS ---
Subjective Subjective: This morning he is doing about the same. He choked up somewhat on his breakfast today while eating eggs, subsequently with low saturations, increased oxygen requirement. Discussed with him aspiration precautions, discussed for now sips and chips until he can get seen by speech therapy. No chest pain or pressure. Vitals/I&O/Wt Last Vital Signs Temp 97.7 F 06/03/23 19:00 Pulse 101 H 06/04/23 16:00 Resp 15 06/04/23 16:00 BP 114/62 06/04/23 16:00 Pulse Ox 93 06/04/23 16:00 O2 Del Method Oxymask 06/04/23 13:25 O2 Flow Rate 7 06/04/23 13:25 FiO2 40 06/03/23 04:00 06/04/23 06/04/23 06/04/23 06:59 14:59 22:59 Intake Total 240 / 1740 450 / 450 500 / 950 Output Total 650 / 1400 700 / 700 Balance -410 / 340 450 / 450 -200 / 250 Physical Exam Const: COMMON NORMALS: patient oriented x3 and alert GENERAL APPEARANCE: cooperative ORIENTATION/CONSCIOUSNESS: Yes awake HENMT: COMMON NORMALS: oropharynx normal Neck/C-Spine: COMMON NORMALS: no JVD Resp: COMMON NORMALS: normal respiratory effort and clear to auscultation bilaterally AUSCULTATION: clear to auscultation bilaterally Cardio: COMMON NORMALS: no JVD, regular rhythm, S1 normal heart sound present, S2 normal heart sound present and No murmurs present (Cardio) RHYTHM: regular rhythm HEART SOUNDS: S1 normal heart sound present and S2 normal heart sound present GI: COMMON NORMALS: Normal to inspection, nondistended, normoactive bowel sounds present, Soft to palpation and non-tender PALPATION: Yes Soft to palpation Extremity: COMMON NORMALS: no joint enlargement OTHER: LLE edema 3+ below the knee, 1+ in the thigh. Mild erythema with edema and stasis below the left knee. RLE BKA Neuro: COMMON NORMALS: patient oriented x3 and moves all extremities SENSORIUM/ORIENTATION: Yes alert Skin: OTHER: Diabetic L foot wounds Urinary Catheter Management: Reed: Cath Placed During This Visit: yes Reason for Continuing Indwelling Catheter: Accurate Measurement of Urinary Output in Critically Ill Patients Urinary Catheter Date of Insertion: 06/02/23 Urinary Catheter Time of Insertion: 20:45 Data 06/04/23 05:43 06/04/23 05:43 Micro: Microbiology 06/02/23 11:33 Gram Stain - Final Sputum - Expectorated Sputum Sputum Culture - Final A&P Assessment and plan (1) Congestive heart failure: This morning only slightly negative balance. Discussed with him consideration of options, escalation of diuretic therapy, consideration of escalation with pushes as currently, consideration of Lasix drip, consideration that he may need dialysis. He states that he has been producing urine overnight and perhaps output was not charted accurately as he states full bags continue to be emptied . He is noted to have some worsening renal function, BUN of 64, creatinine up to 4.5. Add metolazone with twice daily Bumex. If not responding adequately consider Lasix drip. Additionally add volume restriction to 750 mL as he appears to take in close to 1200 by mouth so far. He is pretty much neutral balance currently. Discussed with him regarding chronic kidney disease, risk of renal failure. He states that he is still quite edematous, needing additional diuresis. Noted 3+ lower extremity edema LLE, edema up to thighs 1+. No abdominal edema. Noted mild crackles. Still requiring 5 L nasal cannula oxygen. Acute decompensated CHF. Potassium noted 3.9. Magnesium 2.2. Recheck chemistry. Monitor electrolytes, at risk of electrolyte disturbance. At risk of arrhythmia. Monitor on telemetry. Possible pneumonia given infiltrates on CXR -continue empiric treatment with ceftriaxone and azithromycin Possible aspiration: Aspiration precautions, sips and chips for now, speech therapy evaluation. repeat chest x-ray Check lower extremity duplex. WBC noted 11.4. Neutrophils 9.05. Afebrile. Denies any current chest pain As he is still in respiratory failure, decompensated CHF, possible aspiration, at risk of need of ventilatory support, at risk of renal failure, for now will continue treatment in ICU. (2) CKD (chronic kidney disease), stage V: renal function at baseline (3) Aortic stenosis: (4) Diabetes: insulin sliding scale (5) Transaminitis: Improving transaminitis. Reassess liver parameters. Noted negative hepatitis panel and RUQ us with unremarkable appearing liver. may jenniffer related to hepatic congestion Hold statin for now. Follow-up liver parameters. Plan Diabetic foot wounds: Add wound care Discussed with case management in rounds. Attestations Medical Necessity Statement*: Continue admission for assessment management of respiratory failure, decompen sated CHF in setting of CKD, possible aspiration pneumonitis versus pneumonia. Diagnoses Congestive heart failure I50.9 CKD (chronic kidney disease), stage V N18.5 Aortic stenosis I35.0 Diabetes E11.9 Transaminitis R74.01
--- NOTE | 2023-06-04 18:05 | USCV_ITS ---
Matthew Barrios Age: 58 Gender: M : 1965 Exam Date: 06/04/2023 20:57 Ordering Phys: Vazquez Ulloa MD Technologist: CT [place]am [place] [facility] [place]: BLE SWELLING HISTORY: Lower extremity swelling. PROCEDURES: Venous duplex imaging was performed in bilateral lower extremities. The following venous structures were evaluated: common femoral vein, profunda vein, proximal portion of the greater saphenous vein, superficial femoral vein, and the popliteal vein. In addition, the posterior tibial and peroneal trunk were evaluated. Serial compression, augmentation maneuvers, and spectral Doppler flow evaluation were performed. FINDINGS: Normal 2-D Doppler and augmentation and compressibility throughout the lower extremity venous structures. Additional imaging through the proximal calf veins also reveals no thrombus. Limited evaluation of the greater saphenous vein is patent with no thrombus. CONCLUSIONS No DVT bilateral lower extremities. Dr. Mis Elena DO (Electronically Signed) Final Date: 05 June 2023 09:23 S
[2023-06-04] MEDS: aspirin 81 mg EC Tablet PO (20:25)
[2023-06-04] MEDS: acetaminophen 500 mg Tablet 1000 MG PO (20:25)
[2023-06-04 21:32] LABS: Glucose Point of Care 146 mg/dL (70-110)
[2023-06-05] VITALS (36 sets, daily range): BP systolic 99–135; BP diastolic 49–82; PULSE 91–114; RESP 13–40; TEMP 36.6–36.8; O2SAT 86–98
[2023-06-05] MEDS: ipratropium-albuterol 3 mL Neb INHALATION ×4 (01:03→20:54)
[2023-06-05] MEDS: acetaminophen 325 mg Tablet 650 MG PO ×3 (02:13→13:11)
[2023-06-05 04:45] LABS: Basophils # 0.1 10^3/uL (0.0-0.1); Basophils % 0.4 %; Eosinophils # 0.2 10^3/uL (0.0-0.8); Hematocrit 24.4 % (42.0-52.0); Hemoglobin 7.3 g/dL (11.7-16.6); Lymphocytes # 0.9 10^3/uL (0.8-4.8); Lymphocytes % 8.1 %; Mean Corpuscular HGB Conc 29.9 g/dL (30.0-36.0); Mean Corpuscular Hemoglobin 29.6 pg (28.0-34.0); Mean Corpuscular Volume 98.8 fl (80-94); Mean Platelet Volume 9.7 fL (7.4-10.4); Monocytes # 0.8 10^3/uL (0.2-0.9); Monocytes % 7.6 %; Neutrophils # 9.08 10^3/uL (1.8-7.7); Neutrophils % 81.6 %; Nucleated Red Blood Cells % 0 %; Platelet Count 306 10^3/cmm (130-400); Red Blood Count 2.47 10^6/uL (4.1-5.3); Red Cell Distribution Width 15.8 % (12.1-15.1); White Blood Count 11.1 10^3/uL (4.0-10.0)
[2023-06-05 05:09] LABS: Alanine Aminotransferase 44 U/L (0-41); Albumin Level 2.7 g/dL (3.5-5.2); Alkaline Phosphatase 160 U/L (40-130); Anion Gap 24.3 (5-19); Aspartate Amino Transferase 20 U/L (0-40); Blood Urea Nitrogen 70 mg/dL (6-20); Calcium 8.7 mg/dL (8.5-10.5); Carbon Dioxide 22 mmol/L (22-29); Chloride 95 mmol/L (98-107); Globulin 3.4 g/dL (1.3-4.6); Glomerular Filtration Rate 12.1 mL/min (90-130); Glucose 119 mg/dL (65-115); Osmolality Calculated 306 mOsm/kg (285-295); Potassium 4.3 mmol/L (3.5-5.1); Sodium 137 mmol/L (136-145); Total Bilirubin 0.2 mg/dL (0.15-1.2); Total Protein 6.1 g/dL (6.6-8.7)
[2023-06-05] MEDS: allopurinol 300 mg Tablet PO (05:30)
[2023-06-05] MEDS: heparin 5,000 unit/mL INJ 1 mL 5000 UNIT SUBCUT ×2 (05:30→15:50)
[2023-06-05] MEDS: amlodipine 10 mg Tablet PO (05:30)
[2023-06-05] MEDS: insulin glargine 100 units/1 mL 38 UNIT SUBCUT (05:34)
--- NOTE | 2023-06-05 06:00 | XRR_ITS ---
PROCEDURE INFORMATION: Exam: XR Chest Exam date and time: 06/05/2023 5:13 AM Age: 58 years old Clinical indication: Shortness of breath; Additional info: Hypoxia, chf, poss pneumonia, recent aspiration TECHNIQUE: Imaging protocol: Radiologic exam of the chest. Views: 1 view. COMPARISON: CR (CHEST, ) 06/02/2023 8:49 AM FINDINGS: Lungs: Bilateral interstitial/airspace disease with marked interval worsening in the extent of airspace disease. The differential diagnosis includes bronchopneumonia, aspiration, pulmonary edema, and ARDS. Pleural spaces: Asymmetric pleural effusions, right greater than left. Heart/Mediastinum: Cardiac silhouette upper limits of normal size and increased caliber of the pulmonary vasculature. Bones/joints: Osteopenia and degenerative change. XR/XR chest 1V portable [id number] IMPRESSION: 1. Bilateral interstitial/airspace disease with marked interval worsening in the extent of airspace disease. The differential diagnosis includes bronchopneumonia, aspiration, pulmonary edema, and ARDS. 2. Asymmetric pleural effusions, right greater than left.
[2023-06-05 06:47] LABS: Glucose Point of Care 171 mg/dL (70-110)
[2023-06-05 08:13] LABS: Glucose Point of Care 182 mg/dL (70-110)
--- NOTE | 2023-06-05 08:50 | PC.SOCIAL ---
IMM Update Pg. 2 of IMM updated. Initialed, dated, and timed. Copy provided to patient and copy placed in chart.
[2023-06-05] MEDS: clopidogrel 75 mg Tablet PO (08:51)
[2023-06-05] MEDS: metoprolol tartrate 50 mg Tablet PO ×2 (08:51→17:38)
[2023-06-05] MEDS: pantoprazole DR 40 mg Tablet PO (08:51)
[2023-06-05] MEDS: tamsulosin 0.4 mg Capsule PO (08:51)
[2023-06-05] MEDS: sodium bicarbonate 650 mg Tablet 1300 MG PO ×2 (08:51→17:39)
[2023-06-05] MEDS: methIMAzole 5 MG Tablet PO (08:51)
[2023-06-05] MEDS: lidocaine 5% Patch 1 PATCH TOPICAL (08:52)
[2023-06-05] MEDS: cyclobenzaprine 10 mg Tablet PO (08:52)
[2023-06-05] MEDS: insulin lispro 100 unit/1 mL SUBCUT ×2 (08:52→11:36)
[2023-06-05] MEDS: terazosin 5 mg Capsule PO ×2 (09:13→17:39)
[2023-06-05] MEDS: FUROsemide 100 MG in sodium chloride 0.9% 40 ML IV (09:14)
[2023-06-05 11:21] LABS: Glucose Point of Care 254 mg/dL (70-110)
--- NOTE | 2023-06-05 13:47 | ECG_ITS ---
[facility] Test Date: 2023-06-05 Pat Name: Matthew Barrios Department: Room: ICU12 Gender: Male [employer] Supervisor: : 1965 Requested By: Vazquez Ulloa Order Number: [id number] Reading MD: Morro Weston M.D. Measurements Intervals [place] Rate: 94 P: 25 CO: 120 QRS: -14 QRSD: 88 T: 91 QT: 351 QTc: 439 Interpretive Statements SINUS RHYTHM NONSPECIFIC T-WAVE ABNORMALITY Compared to ECG 06/02/2023 11:30:18 T-wave abnormality now present Sinus tachycardia no longer present Left-axis deviation no longer present Myocardial infarct finding no longer present Electronically Signed On 06-05-2023 14:45:40 CDT by Morro Weston M.D. [id number]
[2023-06-05] MEDS: HYDROmorphone 1 mg/mL INJ 1 mL 0.2 MG IVP ×3 (13:49→22:25)
[2023-06-05 14:08] LABS: Creatine Phosphokinase 44 U/L (39-308)
[2023-06-05 14:18] LABS: Troponin(5th) Baseline 1693 ng/L (0-15)
--- NOTE | 2023-06-05 14:27 | PC.PT ---
Patient nurse, RN, Jean Marie, recommends hold physical therapy today as patient respiratory difficulties have increased, patient now requiring BiPAP continuously, and does not feel patient should be out of bed today, will reattempt tomorrow.
[2023-06-05] MEDS: FUROsemide 100 MG in sodium chloride 0.9% 40 ML 25 MG IV ×3 (14:28→20:02)
--- NOTE | 2023-06-05 15:26 | ECG_ITS ---
[facility] Test Date: 2023-06-05 Pat Name: Matthew Barrios Department: Room: ICU12 Gender: Male Address Change Clerk: : 1965 Requested By: Vazquez Ulloa Order Number: [id number] Yuliana MD: Nader Fu M.D. Measurements Intervals [place] Rate: 94 P: 24 [place]: 124 QRS: -12 QRSD: 87 T: 68 QT: 361 QTc: 451 Interpretive Statements SINUS RHYTHM INFERIOR MYOCARDIAL INFARCTION , PROBABLY OLD [40+ ms Q WAVE AND/OR ST/T ABNORMALITY IN II/aVF] Compared to ECG 06/05/2023 13:47:10 Myocardial infarct finding now present T-wave abnormality no longer present Electronically Signed On 06-06-2023 8:00:32 CDT by Nader Fu M.D. [email or web address] general [id number]
--- NOTE | 2023-06-05 15:45 | P.CONIM_ITS ---
Providers/Reason For Consult Consulting Physician/Specialty*: Nader Fu MD/ Cardiology Reason for Consult*: Troponin elevation/ congestive heart failure Requesting Physician: Dr Ulloa Attending Physician: Vazquez Ulloa Primary Care Provider: César Gallegso DO History of Present Illness History of Present Illness Matthew Barrios Jr is a 58 year old male with PMH of?insulin-dependent type 2 diabetes mellitus, CKD , hypertension, history of right below-knee amputation, who presented to hospital with shortness of breath. Currently on BiPAP. Possible CHF and pneumonia. His troponin is significantly elevated with some uptrend. Denies significant chest pain. EKG showed sinus tachycardia with ectopic premature beats. Patient is on a Lasix drip however urine output is minimal. Creatinine is over 5. Review of Systems General: Reports: 10 or more systems reviewed and unremarkable except in HPI and below Const: Denies: fever(s), chills or body aches Eyes: Denies: change in vision, blurry vision or photophobia ENMT: Reports: hoarseness; Denies: throat pain, enlarged tonsils, odynophagia or nasal congestion Card: Reports: dyspnea on exertion and orthopnea; Denies: chest pain, palpitations, irregular heart rhythm, edema, swelling of feet/ankles, lightheadedness or pre-syncope Resp: Reports: dyspnea; Denies: productive cough, non-productive cough, wheezing, stridor, pain on inspiration, change in phlegm color, hemoptysis or chest congestion GI: Denies: abdominal pain, nausea, vomiting, hematemesis, coffee ground emesis, dysphagia, heartburn, diarrhea, constipation, GI cramping, change in stool character, hematochezia or melena : Denies: flank pain, dysuria, urinary frequency, urinary urgency, urinary hesitancy or hematuria Musc: Denies: neck pain, back pain, extremity pain, joint swelling, joint warmth or deformity Neuro: Denies: headache(s), numbness in extremities, weakness in extremities, sensory changes, difficulty walking, frequent falls, dizziness, vertigo, behavioral changes, Slurred speech present or seizure-like activity Psych: Denies: anxiety, depression, suicidal ideation or homicidal ideation Endo: Denies: polyuria, polydipsia, tired all the time, cold intolerance or hot flashes Himanshu/Lymph: Denies: easy bruising or easy bleeding Medications/Allergies Home Medications Medication Instructions Recorded Confirmed Last Taken Type amlodipine 10 mg tablet 10 mg PO QAM 01/21/20 06/02/23 06/02/23 History terazosin 5 mg capsule 5 mg PO BID 08/18/20 06/02/23 06/02/23 History atorvastatin 80 mg tablet 80 mg PO BEDTIME 10/05/20 06/02/23 06/01/23 History cyclobenzaprine 10 mg tablet 10 mg PO BEDTIME PRN Muscle Spasm 06/14/21 06/02/23 Unknown History pentoxifylline 400 mg 400 mg PO BID 03/21/22 06/02/23 06/02/23 History tablet,extended release albuterol sulfate 90 mcg/actuation 2 puff inhalation Q6H PRN 05/06/23 06/02/23 Unknown History aerosol inhaler Shortness Of Breath allopurinol 300 mg tablet 300 mg PO QAM 05/06/23 06/02/23 06/02/23 History aspirin 81 mg tablet,delayed 81 mg PO BEDTIME 05/06/23 06/02/23 06/02/23 History release cetirizine 10 mg tablet 10 mg PO BEDTIME 05/06/23 06/02/23 06/02/23 History insulin lispro 100 unit/mL See Rx Instructions .Route .COMPLEX 05/06/23 06/02/23 06/02/23 History subcutaneous pen sodium bicarbonate 650 mg tablet 1,300 mg PO BID 05/06/23 06/02/23 06/02/23 Hist ory umeclidinium 62.5 mcg/actuation 1 inh inhalation DAILY 05/06/23 06/02/23 06/02/23 History blister powder for inhalation (Incruse Ellipta) bumetanide 2 mg tablet 1 mg PO BID 30 days #30 tabs 05/09/23 06/02/23 06/02/23 Rx clopidogrel 75 mg tablet 75 mg PO DAILY 30 days #30 tabs 05/09/23 06/02/23 06/02/23 Rx methimazole 5 mg tablet 5 mg PO DAILY 30 days #30 tabs 05/09/23 06/02/23 06/02/23 Rx nitroglycerin 0.4 mg sublingual 0.4 mg sublingual Q5M PRN chest 05/09/23 06/02/23 Unknown Rx tablet pain 30 days #30 tabs tamsulosin 0.4 mg capsule 0.4 mg PO DAILY 30 days #30 caps 05/09/23 06/02/23 06/02/23 Rx acetaminophen 500 mg tablet 1,500 mg PO BEDTIME 05/20/23 06/02/23 06/01/23 History insulin glargine 100 unit/mL (3 38 unit SUBCUT QAM 05/20/23 06/02/23 06/02/23 History mL) subcutaneous pen (Lantus Solostar U-100 Insulin) acetaminophen 325 mg tablet 650 mg PO QID PRN Pain 06/02/23 06/02/23 Unknown History bisacodyl 10 mg rectal suppository 10 mg NE DAILY PRN Constipation 06/02/23 06/02/23 Unknown History (Dulcolax (bisacodyl)) bisacodyl 5 mg tablet,delayed 5 mg PO DAILY PRN Constipation 06/02/23 06/02/23 Unknown History release (Dulcolax (bisacodyl)) metoprolol tartrate 50 mg tablet 50 mg PO BID 06/02/23 06/02/23 06/02/23 History sodium phosphates 19 gram-7 118 ml NE DAILY PRN Constipation 06/02/23 06/02/23 Unknown History gram/118 mL enema (Fleet Enema) vitamins A and D-white See Rx Instructions .Route .COMPLEX 06/02/23 06/02/23 06/02/23 History petrolatum-lanolin topical ointment (A and D (nancy, pet) topical ointment) Allergies Allergy/AdvReac Type Severity Reaction Status Date / Time furosemide [From Lasix] Allergy Intermediate kidney Verified 06/02/23 09:55 complications [place]nut Allergy Unknown inknown Verified 06/02/23 09:55 morphine Allergy ADR-Halluci Verified 06/02/23 09:55 nating trazodone Allergy RASH Verified 06/02/23 09:55 Current Medications Generic Name Dose Route Start Last Admin Trade Name Freq PRN Reason Stop Dose Admin Acetaminophen 650 mg 06/03/23 08:30 06/05/23 13:11 Acetaminophen 325 Mg Tablet PO 650 mg QID PRN Administration Pain Acetaminophen 1,000 mg 06/03/23 21:00 06/04/23 20:25 Acetaminophen 500 Mg Tablet PO 1,000 mg BEDTIME KIM Administration Albuterol/Ipratropium 3 ml 06/05/23 16:00 06/05/23 15:20 Ipratropium-Albuterol 3 Ml Neb INHALATION 3 ml Q4H.RESPIRATORY KIM Administration Allopurinol 300 mg 06/03/23 06:00 06/05/23 05:30 Allopurinol 300 Mg Tablet PO 300 mg QAM KIM Administration Amlodipine Besylate 10 mg 06/03/23 06:00 06/05/23 05:30 Amlodipine 10 Mg Tablet PO 10 mg QAM KIM Administration Aspirin 81 mg 06/02/23 21:00 06/04/23 20:25 Aspirin 81 Mg Ec Tablet PO 81 mg BEDTIME KIM Administration Atorvastatin Calcium 80 mg 06/02/23 21:00 06/02/23 20:03 Atorvastatin 40 Mg Tablet PO Not Given BEDTIME KIM Clopidogrel Bisulfate 75 mg 06/03/23 09:00 06/05/23 08:51 Clopidogrel 75 Mg Tablet PO 75 mg DAILY KIM Administration Cyclobenzaprine HCl 10 mg 06/04/23 11:39 06/05/23 08:52 Cyclobenzaprine 10 Mg Tablet PO 10 mg TID PRN Administration MUSCLE SPASMS Heparin Sodium (Porcine) 5,000 unit 06/02/23 16:30 06/05/23 05:30 Heparin 5,000 Unit/Ml Inj 1 Ml SUBCUT 5,000 unit Q12H KIM Administration Hydromorphone HCl 0.2 mg 06/05/23 13:26 06/05/23 13:49 Hydromorphone 1 Mg/Ml Inj 1 Ml IVP 0.2 mg Q4H PRN Administration SEVERE PAIN Ceftriaxone Sodium 1,000 mg/ 50 mls @ 100 mls/hr 06/02/23 16:30 06/04/23 16:01 Sodium Chloride IV 100 mls/hr Q24H KIM Administration Protocol Azithromycin 500 mg/ Sodium 250 mls @ 250 mls/hr 06/02/23 16:30 06/04/23 16:02 Chloride PO 06/05/23 16:29 250 mls/hr Q24H KIM Administration Protocol Furosemide 100 mg/ Sodium 50 mls @ 0 mls/hr 06/05/23 09:15 06/05/23 14:28 Chloride IV 50 mg/hr .Q0M KIM 25 mls/hr Administration Protocol Per Protocol Insulin Glargine 38 unit 06/03/23 06:00 06/05/23 05:34 Insulin Glargine 100 Units/1 Ml SUBCUT 38 unit QAM KIM Administration Insulin Human Lispro 0 unit 06/02/23 18:00 06/05/23 11:36 Insulin Lispro 100 Unit/1 Ml SUBCUT 10 unit WM&BEDTIME KIM Administration Protocol Lanolin 1 applic 06/03/23 13:50 06/04/23 12:09 Lanolin Oint 7 Gm TOPICAL 1 applic PRN PRN Administration DRYNESS Lidocaine 1 patch 06/03/23 17:00 06/05/23 08:52 Lidocaine 5% Patch TOPICAL 1 patch [id number] KIM Administration Methimazole 5 mg 06/03/23 09:00 06/05/23 08:51 Methimazole 5 Mg Tablet PO 5 mg DAILY KIM Administration Metolazone 5 mg 06/04/23 15:30 06/04/23 16:02 Metolazone 5 Mg Tablet PO 5 mg Q24H KIM Administration Metoprolol Tartrate 50 mg 06/02/23 18:00 06/05/23 08:51 Metoprolol Tartrate 50 Mg Tablet PO 50 mg BID KIM Administration Pantoprazole Sodium 40 mg 06/03/23 09:00 06/05/23 08:[address] 40 Mg Tablet PO 40 mg DAILY KIM Administration Sodium Bicarbonate 1,300 mg 06/02/23 18:00 06/05/23 08:51 Sodium Bicarbonate 650 Mg Tablet PO 1,300 mg BID KIM Administration Tamsulosin HCl 0.4 mg 06/03/23 09:00 06/05/23 08:51 Tamsulosin 0.4 Mg Capsule PO 0.4 mg DAILY KIM Administration Terazosin HCl 5 mg 06/02/23 18:00 06/05/23 09:13 Terazosin 5 Mg Capsule PO 5 mg BID KIM Administration PFSH Acute PFSH: Medical History Chronic kidney disease Diabetes Graves disease History of tonsillitis Hypertension Surgical History History of amputation below knee History of cholecystectomy History of eye surgery History of knee surgery History of tonsillectomy and adenoidectomy Family History Grandmother Dementia Social History Smoking and tobacco status: former smoker Alcohol intake: never Substance/Drug Use: never Vitals/I&O/Wt Last Vital Signs Temp 98.2 F 06/05/23 04:00 Pulse 92 06/05/23 15:24 Resp 22 H 06/05/23 15:20 BP 125/50 06/05/23 12:00 Pulse Ox 92 06/05/23 15:21 O2 Del Method BiPAP 06/05/23 15:20 O2 Flow Rate 7 06/05/23 00:56 FiO2 40 06/05/23 15:21 06/05/23 06/05/23 06/05/23 06:59 14:59 22:59 Intake Total 150 / 150 Output Total 425 / 1125 Balance -425 / 305 150 / 150 Weight last 48 hrs Weight 213 lb 8 oz Physical Exam Narrative: GENERAL: Patient is alert, awake and oriented x3. [] NECK: No jugular vein distension. [] HEENT: No cyanosis. No icterus. No pallor. [] HEART: Regular S1 and S2. No murmur, rub or gallop. [] LUNGS: Clear to auscultate bilaterally. [] CENTRAL NERVOUS SYSTEM: Grossly nonfocal. [] EXTREMITIES: Left lower extremity with 1+ edema. Right BKA Urinary Catheter Management: Reed: Cath Placed During This Visit: yes Reason for Continuing Indwelling Catheter: Accurate Measurement of Urinary Output in Critically Ill Patients Urinary Catheter Date of Insertion: 06/02/23 Urinary Catheter Time of Insertion: 20:45 Data 06/06/23 04:37 06/06/23 04:37 Micro: Microbiology 06/02/23 11:33 Gram Stain - Final Sputum - Expectorated Sputum Sputum Culture - Final A&P Assessment and plan (1) Respiratory failure: (2) Congestive heart failure: (3) NSTEMI (non-ST elevated myocardial infarction): (4) CKD (chronic kidney disease), stage V: (5) Peripheral arterial disease: (6) Diabetes: Plan Patient's respiratory failure is multifactorial including possible pneumonia, renal disease and congestive heart failure. He will benefit from dialysis. Will recommend nephrology consultation. Continue Lasix drip for now. Patient had decided to hold off on coronary angiogram as the risk of permanent dialysis is high. If she progresses to end-stage renal disease and decides on permanent dialysis, we can consider coronary angiogram. Medical therapy at this time. Patient also has anemia. Troponin elevation can be secondary to NSTEMI versus demand ischemia and renal dysfunction. Medical management for now. We will obtain echocardiogram to reassess LV function Thank you for involving us with care of this patient. We will continue to follow. Please call with questions Consult Attestations Medical Necessity Statement: Care expected to cross 2 midnights. Coding Level of Care Code Acute Code for [facility] Diagnoses Respiratory failure J96.90 Congestive heart failure I50.9 NSTEMI (non-ST elevated myocardial infarction) I21.4 CKD (chronic kidney disease), stage V N18.5 Peripheral arterial disease I73.9 Diabetes E11.9
[2023-06-05] MEDS: cefTRIAXone 1,000 MG in sodium chloride 0.9% (plus) 50 ML 100 MG IV (15:49)
[2023-06-05] MEDS: metOLazone 5 MG Tablet PO (15:50)
[2023-06-05 16:29] LABS: Glucose Point of Care 132 mg/dL (70-110)
[2023-06-05 16:46] LABS: Troponin 5 2HR 1712 ng/L (0-15); Troponin 5 2HR Delta 19 ABS# (0-10)
[2023-06-05] MEDS: enoxaparin 100 mg/mL Syringe 95 MG SUBCUT (17:38)
--- NOTE | 2023-06-05 17:54 | PC.NURSE ---
Shift summary: urine output improved with lasix drip per DEC, required biap all day, uneventful day, no c/o at this time
--- NOTE | 2023-06-05 19:15 | PC.NURSE ---
This nurse notified Dr. Santos lasix drip is running at 50 mg/hr, no N.O.
--- NOTE | 2023-06-05 19:37 | P.PN_ITS ---
Subjective Subjective: Started on BiPAP support which she has been tolerating well, however, it has been making his nose itchy. Discussed with him regarding transition to Lasix drip. Vitals/I&O/Wt Last Vital Signs Temp 98.0 F 06/05/23 16:34 Pulse 96 06/05/23 16:00 Resp 21 H 06/05/23 16:00 BP 114/82 06/05/23 16:00 Pulse Ox 94 06/05/23 16:00 O2 Del Method BiPAP 06/05/23 15:20 O2 Flow Rate 7 06/05/23 00:56 FiO2 40 06/05/23 15:21 06/05/23 06/05/23 06/05/23 06:59 14:59 22:59 Intake Total 150 / 150 50 / 200 Output Total 425 / 1125 Balance -425 / 355 150 / 150 50 / 200 Weight last 48 hrs Weight 96.842 kg Physical Exam Const: COMMON NORMALS: patient oriented x3 and alert GENERAL APPEARANCE: cooperative ORIENTATION/CONSCIOUSNESS: Yes awake HENMT: COMMON NORMALS: oropharynx normal Neck/C-Spine: COMMON NORMALS: no JVD Resp: COMMON NORMALS: normal respiratory effort AUSCULTATION: wheezes and diminished lung sounds OTHER: BiPAP Cardio: COMMON NORMALS: no JVD, regular rhythm, S1 normal heart sound present, S2 normal heart sound present and No murmurs present (Cardio) RHYTHM: regular rhythm HEART SOUNDS: S1 normal heart sound present and S2 normal heart sound present GI: COMMON NORMALS: Normal to inspection, nondistended, normoactive bowel sounds present, Soft to palpation and non-tender PALPATION: Yes Soft to palpation Extremity: COMMON NORMALS: no joint enlargement OTHER: LLE edema 3+ below the knee, 1+ in the thigh. Mild erythema with edema and stasis below the left knee. RLE BKA Neuro: COMMON NORMALS: patient oriented x3 and moves all extremities SENSORIUM/ORIENTATION: Yes alert Skin: OTHER: Diabetic L foot wounds Urinary Catheter Management: Reed: Cath Placed During This Visit: yes Reason for Continuing Indwelling Catheter: Accurate Measurement of Urinary Output in Critically Ill Patients Urinary Catheter Date of Insertion: 06/02/23 Urinary Catheter Time of Insertion: 20:45 Data 06/05/23 04:28 06/05/23 04:28 A&P Assessment and plan (1) Respiratory failure: condition secondary to CHF as well as aspiration pneumonitis. Today noted wheezes, diminished air entry. Increased Frequency, add as needed, add inhaled budesonide. Repeated chest x-ray, noted interstitial changes, suspect secondary to aspiration pneumonitis. Noted negative COVID-19 PCR. He is otherwise afebrile, no focal consolidation, minimal leukocytosis, for now will not change antibiotics. Continue aspiration precautions. Dysphagia diet, although n.p.o. for now. Additionally decompensated CHF, poor urine output, discussed with him this morning, started on Lasix drip, urine output has picked up some, however, is requiring high rate of Lasix infusion, unfortunate appears to be progressing to renal failure, discussed with him request for nephrology consultation with consideration for need for hemodialysis. Discussed with nephrology. N.p.o. for now. pdated night physician on our discussion as well in case intubation and mechanical ventilatory support was needed he would be agreeable, but states that he has a very narrow throat in case needing intubation. (2) Congestive heart failure: Discussed with him fluid restriction. Switched to trial Lasix drip today but with lackluster response. He has been feeling achy today, some generalized pain, some in the left shoulder, obtain troponin EKG series, troponin elevated 1693 baseline, 2 hours 1712. Nonspecific T wave abnormality. Requested limited TTE follow-up with consideration of possible NSTEMI. Requested assessment by cardiology. Discussed with him regarding starting anticoagulation with Lovenox, risk of bleeding given also worsening BUN, additional consideration that we cannot exclude PE as well. Lower extremity duplex noted negative for DVT. Today BUN noted 70, creatinine 5. Sodium 137, potassium 4.3. Bicarb 22. An ion gap 24.3. Monitor electrolytes, at risk of electrolyte disturbance. At risk of arrhythmia. Monitor on telemetry. As he is still in respiratory failure, decompensated CHF, possible aspiration, at risk of need of ventilatory support, at risk of renal failure, for now will continue treatment in ICU. (3) CKD (chronic kidney disease), stage V: Renal function at baseline (4) Aortic stenosis: (5) Diabetes: insulin sliding scale (6) Transaminitis: Improving transaminitis. Reassess liver parameters. Noted negative hepatitis panel and RUQ us with unremarkable appearing liver. may jenniffer related to hepatic congestion Hold statin for now. Follow-up liver parameters. Plan Diabetic foot wounds: Continue wound care Aches and pains: Has been uncomfortable, generalized pain, check CK, no rhabdomyolysis. Continue Tylenol, lidocaine patch. Add Dilaudid low-dose 0.2 mg, was giving him partial relief at every 4 hour interval for about 2 hours, increased to every 2 hours as needed after discussion of risks. Discussed with case management Attestations Medical Necessity Statement*: Continue admission for assessment management of respiratory failure, CHF, progressing to renal failure, aspiration pneumonitis. Coding Level of Care Code Critical Care >/= 30 minutes Critical care time (in minutes): 40 The high probability of a clinically significant, sudden or life threatening deterioration, as referenced in this documentation, required my full and direct attention, intervention and personal management. The critical care time shown is in addition to time spent performing any reported separately billable procedures and includes the following: [x] Data and vital sign review and interpretation [x ] Patient assessment, examination and intervention [x] Medication orders and management [x] Patient/Family updates as able [x] Care Coordination and Documentation. Diagnoses Respiratory failure J96.90 Congestive heart failure I50.9 CKD (chronic kidney disease), stage V N18.5 Aortic stenosis I35.0 Diabetes E11.9 Transaminitis R74.01
--- NOTE | 2023-06-05 20:19 | ECG_ITS ---
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 Measurements Intervals [place] Rate: 87 P: 54 CT: 153 QRS: -16 QRSD: 90 T: 76 QT: 374 QTc: 452 Interpretive Statements SINUS RHYTHM POSSIBLE ANTERIOR MYOCARDIAL INFARCTION , PROBABLY OLD [30 ms Q WAVE IN V3/V4, OR R < 0.2 mV IN V4] Compared to ECG 06/05/2023 15:27:21 No significant changes Electronically Signed On 06-06-2023 7:59:56 CDT by Nader Fu M.D. [email or web address]
[2023-06-05 20:24] LABS: Troponin 5 6HR 1919 ng/L (0-15); Troponin 5 6HR Delta 226 ng/L (0-12)
--- NOTE | 2023-06-05 20:46 | PM.CONSULT ---
Providers/Reason For Consult Consulting Physician/Specialty*: kommana/Nephrology Reason for Consult*: esrd Attending Physician: Vazquez Ulloa Primary Care Provider: César Gallegos DO History of Present Illness History of Present Illness Matthew Barrios Jr is a 58 year old male Patient is a 58-year-old male with past medical history of chronic kidney disease stage IV with a baseline creatinine in the 4 range, hypertension, diabetes, possible diabetic nephropathy with nephrotic syndrome, history of NSTEMI presented to the emergency department for due to progressively worsening shortness of breath. He is currently on BiPAP and is in the ICU. There was possibility of pneumonia as well due to aspiration. He was admitted in April for shortness of breath and cough was thought to be multifactorial secondary to pneumonia and CHF exacerbation. And was discharged home at that time on Bumex 1 mg twice daily. Patient is followed by wire stitcher machine and dialysis was discussed with him due to recurrent admissions for volume overload and CHF exacerbations in the setting of advanced CKD. Since admission he was placed on Lasix drip with no or adequate diuretic response so far. Review of Systems Narrative: Other ROS negative Medications/Allergies Home Medications Medication Instructions Recorded Confirmed Last Taken Type amlodipine 10 mg tablet 10 mg PO QAM 01/21/20 06/02/23 06/02/23 History terazosin 5 mg capsule 5 mg PO BID 08/18/20 06/02/23 06/02/23 History atorvastatin 80 mg tablet 80 mg PO BEDTIME 10/05/20 06/02/23 06/01/23 History cyclobenzaprine 10 mg tablet 10 mg PO BEDTIME PRN Muscle Spasm 06/14/21 06/02/23 Unknown History pentoxifylline 400 mg 400 mg PO BID 03/21/22 06/02/23 06/02/23 History tablet,extended release albuterol sulfate 90 mcg/actuation 2 puff inhalation Q6H PRN 05/06/23 06/02/23 Unknown History aerosol inhaler Shortness Of Breath allopurinol 300 mg tablet 300 mg PO QAM 05/06/23 06/02/23 06/02/23 History aspirin 81 mg tablet,delayed 81 mg PO BEDTIME 05/06/23 06/02/23 06/02/23 History release cetirizine 10 mg tablet 10 mg PO BEDTIME 05/06/23 06/02/23 06/02/23 History insulin lispro 100 unit/mL See Rx Instructions .Route .COMPLEX 05/06/23 06/02/23 06/02/23 History subcutaneous pen sodium bicarbonate 650 mg tablet 1,300 mg PO BID 05/06/23 06/02/23 06/02/23 History umeclidinium 62.5 mcg/actuation 1 inh inhalation DAILY 05/06/23 06/02/23 06/02/23 History blister powder for inhalation (Incruse Ellipta) bumetanide 2 mg tablet 1 mg PO BID 30 days #30 tabs 05/09/23 06/02/23 06/02/23 Rx clopidogrel 75 mg tablet 75 mg PO DAILY 30 days #30 tabs 05/09/23 06/02/23 06/02/23 Rx methimazole 5 mg tablet 5 mg PO DAILY 30 days #30 tabs 05/09/23 06/02/23 06/02/23 Rx nitroglycerin 0.4 mg sublingual 0.4 mg sublingual Q5M PRN chest 05/09/23 06/02/23 Unknown Rx tablet pain 30 days #30 tabs tamsulosin 0.4 mg capsule 0.4 mg PO DAILY 30 days #30 caps 05/09/23 06/02/23 06/02/23 Rx acetaminophen 500 mg tablet 1,500 mg PO BEDTIME 05/20/23 06/02/23 06/01/23 History insulin glargine 100 unit/mL (3 38 unit SUBCUT QAM 05/20/23 06/02/23 06/02/23 History mL) subcutaneous pen (Lantus Solostar U-100 Insulin) acetaminophen 325 mg tablet 650 mg PO QID PRN Pain 06/02/23 06/02/23 Unknown History bisacodyl 10 mg rectal suppository 10 mg MN DAILY PRN Constipation 06/02/23 06/02/23 Unknown History (Dulcolax (bisacodyl)) bisacodyl 5 mg tablet,delayed 5 mg PO DAILY PRN Constipation 06/02/23 06/02/23 Unknown History release (Dulcolax (bisacodyl)) metoprolol tartrate 50 mg tablet 50 mg PO BID 06/02/23 06/02/23 06/02/23 History sodium phosphates 19 gram-7 118 ml MN DAILY PRN Constipation 06/02/23 06/02/23 Unknown History gram/118 mL enema (Fleet Enema) vitamins A and D-white See Rx Instructions .Route .COMPLEX 06/02/23 06/02/23 06/02/23 History petrolatum-lanolin topical ointment (A and D (nancy, pet) topical ointment) Allergies Allergy/AdvReac Type Severity Reaction Status Date / Time furosemide [From Lasix] Allergy Intermediate kidney Verified 06/02/23 09:55 complications walnut Allergy Unknown inknown Verified 06/02/23 09:55 morphine Allergy ADR-Halluci Verified 06/02/23 09:55 nating trazodone Allergy RASH Verified 06/02/23 09:55 Current Medications Generic Name Dose Route Start Last Admin Trade Name Freq PRN Reason Stop Dose Admin Acetaminophen 650 mg 06/03/23 08:30 06/05/23 13:11 Acetaminophen 325 Mg Tablet PO 650 mg QID PRN Administration Pain Acetaminophen 1,000 mg 06/03/23 21:00 06/04/23 20:25 Acetaminophen 500 Mg Tablet PO 1,000 mg BEDTIME KIM Administration Albuterol/Ipratropium 3 ml 06/05/23 16:00 06/05/23 15:20 Ipratropium-Albuterol 3 Ml Neb INHALATION 3 ml Q4H.RESPIRATORY KIM Administration Allopurinol 300 mg 06/03/23 06:00 06/05/23 05:30 Allopurinol 300 Mg Tablet PO 300 mg QAM KIM Administration Amlodipine Besylate 10 mg 06/03/23 06:00 06/05/23 05:30 Amlodipine 10 Mg Tablet PO 10 mg QAM KIM Administration Aspirin 81 mg 06/02/23 21:00 06/04/23 20:25 Aspirin 81 Mg Ec Tablet PO 81 mg BEDTIME KIM Administration Atorvastatin Calcium 80 mg 06/02/23 21:00 06/02/23 20:03 Atorvastatin 40 Mg Tablet PO Not Given BEDTIME KIM Clopidogrel Bisulfate 75 mg 06/03/23 09:00 06/05/23 08:51 Clopidogrel 75 Mg Tablet PO 75 mg DAILY KIM Administration Cyclobenzaprine HCl 10 mg 06/04/23 11:39 06/05/23 08:52 Cyclobenzaprine 10 Mg Tablet PO 10 mg TID PRN Administration MUSCLE SPASMS Enoxaparin Sodium 95 mg 06/05/23 17:00 06/05/23 17:38 Enoxaparin 100 Mg/Ml Syringe SUBCUT 95 mg Q24H KIM Administration Hydromorphone HCl 0.2 mg 06/05/23 19:28 06/05/23 20:00 Hydromorphone 1 Mg/Ml Inj 1 Ml IVP 0.2 mg Q2H PRN Administration SEVERE PAIN Ceftriaxone Sodium 1,000 mg/ 50 mls @ 100 mls/hr 06/02/23 16:30 06/05/23 15:49 Sodium Chloride IV 100 mls/hr Q24H KIM Administration Protocol Furosemide 100 mg/ Sodium 50 mls @ 0 mls/hr 06/05/23 09:15 06/05/23 20:02 Chloride IV 50 mg/hr .Q0M KIM 25 mls/hr Administration Protocol Per Protocol Insulin Glargine 38 unit 06/03/23 06:00 06/05/23 05:34 Insulin Glargine 100 Units/1 Ml SUBCUT 38 unit QAM [facility] Administration Insulin Human Lispro 0 unit 06/02/23 18:00 06/05/23 17:03 Insulin Lispro 100 Unit/1 Ml SUBCUT Not Given WM&BEDTIME [facility] Protocol Lanolin 1 applic 06/03/23 13:50 06/04/23 12:09 Lanolin Oint 7 Gm TOPICAL 1 applic PRN PRN Administration DRYNESS Lidocaine 1 patch 06/03/23 17:00 06/05/23 08:52 Lidocaine 5% Patch TOPICAL 1 patch [id number] KIM Administration Methimazole 5 mg 06/03/23 09:00 06/05/23 08:51 Methimazole 5 Mg Tablet PO 5 mg DAILY KIM Administration Metolazone 5 mg 06/04/23 15:30 06/05/23 15:50 Metolazone 5 Mg Tablet PO 5 mg Q24H KIM Administration Metoprolol Tartrate 50 mg 06/02/23 18:00 06/05/23 17:38 Metoprolol Tartrate 50 Mg Tablet PO 50 mg BID KIM Administration Pantoprazole Sodium 40 mg 06/03/23 09:00 06/05/23 08:[address] 40 Mg Tablet PO 40 mg DAILY KIM Administration Sodium Bicarbonate 1,300 mg 06/02/23 18:00 06/05/23 17:39 Sodium Bicarbonate 650 Mg Tablet PO 1,300 mg BID KIM Administration Tamsulosin HCl 0.4 mg 06/03/23 09:00 06/05/23 08:51 Tamsulosin 0.4 Mg Capsule PO 0.4 mg DAILY KIM Administration Terazosin HCl 5 mg 06/02/23 18:00 06/05/23 17:39 Terazosin 5 Mg Capsule PO 5 mg BID KIM Administration PFSH Acute PFSH: Medical History Chronic kidney disease Diabetes Graves disease History of tonsillitis Hypertension Surgical History History of amputation below knee History of cholecystectomy History of eye surgery History of knee surgery History of tonsillectomy and adenoidectomy Family History Grandmother Dementia Social History Smoking and tobacco status: former smoker Alcohol intake: never Substance/Drug Use: never Vitals/I&O/Wt Last Vital Signs Temp 98.0 F 06/05/23 16:34 Pulse 96 06/05/23 16:00 Resp 18 06/05/23 20:00 BP 114/82 06/05/23 16:00 Pulse Ox 92 06/05/23 20:00 O2 Del Method BiPAP 06/05/23 15:20 O2 Flow Rate 7 06/05/23 00:56 FiO2 40 06/05/23 15:21 06/05/23 06/05/23 06/05/23 06:59 14:59 22:59 Intake Total 150 / 150 100 / 250 Output Total 425 / 1125 Balance -425 / 355 150 / 150 100 / 250 Weight last 48 hrs Weight 96.842 kg Physical Exam Narrative: awake, alert S1S2 RRR Lungs clear hira + edema Urinary Catheter Management: Reed: Cath Placed During This Visit: yes Reason for Continuing Indwelling Catheter: Accurate Measurement of Urinary Output in Critically Ill Patients Urinary Catheter Date of Insertion: 06/02/23 Urinary Catheter Time of Insertion: 20:45 Data 06/05/23 04:28 06/05/23 04:28 A&P Assessment and plan (1) CKD (chronic kidney disease), stage V: Plan 1. CKD stage IV/V with volume overload, recurrent admissions for same. Patient would benefit from initiation of dialysis for volume management in the setting of CHF and advanced CKD. -Patient agrees for HD initiation, recommend tunneled catheter placement for long-term HD -Switch to Lasix to 80 mg IV every 8 hours along with IV albumin 25 g every 8 hours. -We will check UPCR likely have nephrotic proteinuria. -Avoid nephrotoxins and IV contrast studies. 2. Acute on chronic shortness of breath: Currently on BiPAP, multifactorial secondary to volume overload and possible pneumonitis 3. Anemia: We will order Procrit, likely from advanced CKD, also check iron studies 4. MBD: Check phosphorus vitamin D and PTH levels 5. History of diabetic foot wounds 6. Diabetes 7. History of hypertension Patient evaluated using audiovisual cart. Time spent 40 minutes Consult Attestations Medical Necessity Statement: per medicine Coding Level of Care Code Acute Code for Chg Fwd Diagnoses CKD (chronic kidney disease), stage V N18.5
[2023-06-05] MEDS: budesonide 0.5 mg/2 mL Neb INHALATION (20:54)
[2023-06-05] MEDS: acetaminophen 500 mg Tablet 1000 MG PO (22:11)
[2023-06-05] MEDS: albumin 25 G/100 ML BAG 60 G IV (22:11)
[2023-06-05] MEDS: aspirin 81 mg EC Tablet PO (22:11)
[2023-06-05] MEDS: FUROsemide 10 mg/mL SDV 10mL 80 MG IVP (22:12)
[2023-06-05 22:26] LABS: Glucose Point of Care 74 mg/dL (70-110)
[2023-06-05 23:16] LABS: Calcium 8.9 mg/dL (8.5-10.5)
[2023-06-05 23:22] LABS: Parathyroid Hormone 107.2 pg/mL (15-65)
[2023-06-05] MEDS: ondansetron 2 mg/ML SDV 2 mL 4 MG IVP (23:26)
[2023-06-06] VITALS (37 sets, daily range): BP systolic 97–128; BP diastolic 42–90; PULSE 90–107; RESP 12–29; TEMP 36.6–36.7; O2SAT 86–100
--- NOTE | 2023-06-06 | USCV_ITS ---
Matthew Barrios Age: 58 Gender: M : 1965 Exam Date: 06/06/2023 00:44 Ordering Phys: Vazquez Ulloa MD Technologist: CT Exam Location: [facility] [place] Indication: chf BP: 119 / 64 HR: 102 Rhythm: Sinus Technical Quality: Technically difficult study MEASUREMENTS (Male / Female) Normal Values 2D ECHO LV Diastolic Diameter PLAX 5.2 cm 4.2 - 5.9 / 3.9 - 5.3 cm LV Systolic Diameter PLAX 3.1 cm IVS Diastolic Thickness 0.9 cm 0.6 - 1.0 / 0.6 - 0.9 cm IVS Systolic Thickness 1.4 cm LVPW Diastolic Thickness 1.2 cm 0.6 - 1.0 / 0.6 - 0.9 cm LVPW Systolic Thickness 1.6 cm LVOT Diameter 2.1 cm LV Ejection Fraction 2D Teich 71.2 % LV Ejection Fraction MOD 2C 42.6 % LV Ejection Fraction 2C AL 42.9 % LA Diameter 4.9 cm Aorta at Sinotubular Diameter 2.5 cm IVC Diameter 2.1 cm M-MODE Aortic Annulus Diameter 2.8 cm LA Ao Ratio MM 2.0 MV E Point Septal Separation 1.3 cm DOPPLER Right Atrial Pressure 5.0 mmHg FINDINGS Left Ventricle Left ventricle is mildly dilated. Grossly LV systolic function is mildly reduced. Regional wall motion abnormalities cannot be assessed because of poor ultrasonic windows. Right Ventricle Normal in size and function Right Atrium Normal in size Left Atrium Normal in size Mitral Valve Mild mitral annular calcification. Aortic Valve Aortic valve is thickened and calcified. Tricuspid Valve Not well-visualized Pulmonic Valve Not well visualized Pericardium Normal Aorta Normal in size IVC Dilated CONCLUSIONS Technically very limited quality echocardiogram he was brought ultrasonic windows. Grossly LV systolic function is mildly reduced. Aortic valve is thickened and calcified. Doppler exam not performed. Aortic stenosis cannot be assessed. IVC is dilated. Comparison with prior echocardiogram is not possible because of poor ultrasonic windows. Nader Fu MD (Electronically Signed) Final Date: 06 June 2023 17:03 S
[2023-06-06] MEDS: HYDROmorphone 1 mg/mL INJ 1 mL 0.2 MG IVP ×4 (03:12→21:07)
[2023-06-06 04:50] LABS: Basophils % 0.3 %; Eosinophils # 0.1 10^3/uL (0.0-0.8); Eosinophils % 0.6 %; Hematocrit 25.1 % (42.0-52.0); Hemoglobin 7.6 g/dL (11.7-16.6); Lymphocytes # 0.7 10^3/uL (0.8-4.8); Lymphocytes % 4.5 %; Mean Corpuscular HGB Conc 30.3 g/dL (30.0-36.0); Mean Corpuscular Hemoglobin 29.8 pg (28.0-34.0); Mean Corpuscular Volume 98.4 fl (80-94); Mean Platelet Volume 9.6 fL (7.4-10.4); Monocytes # 0.9 10^3/uL (0.2-0.9); Monocytes % 5.9 %; Neutrophils # 12.82 10^3/uL (1.8-7.7); Neutrophils % 88.3 %; Nucleated Red Blood Cells % 0 %; Platelet Count 306 10^3/cmm (130-400); Red Blood Count 2.55 10^6/uL (4.1-5.3); Red Cell Distribution Width 15.8 % (12.1-15.1); White Blood Count 14.5 10^3/uL (4.0-10.0)
[2023-06-06 05:05] LABS: Glucose Point of Care 79 mg/dL (70-110)
--- NOTE | 2023-06-06 05:07 | PC.NURSE ---
Patient's blood sugar is 74. Patient is NPO for HD line placement today. Will hold am dose of Lantus for now. Reassess with 0900 meds.
[2023-06-06 05:12] LABS: Alanine Aminotransferase 33 U/L (0-41); Albumin Level 3.2 g/dL (3.5-5.2); Alkaline Phosphatase 145 U/L (40-130); Anion Gap 23.6 (5-19); Aspartate Amino Transferase 13 U/L (0-40); Blood Urea Nitrogen 73 mg/dL (6-20); Carbon Dioxide 24 mmol/L (22-29); Chloride 95 mmol/L (98-107); Globulin 3.1 g/dL (1.3-4.6); Glucose 75 mg/dL (65-115); Osmolality Calculated 306 mOsm/kg (285-295); Potassium 4.6 mmol/L (3.5-5.1); Sodium 138 mmol/L (136-145); Total Bilirubin 0.2 mg/dL (0.15-1.2); Total Protein 6.3 g/dL (6.6-8.7)
[2023-06-06] MEDS: albumin 25 G/100 ML BAG 60 G IV ×3 (05:14→21:06)
[2023-06-06 05:18] LABS: Calcium 8.9 mg/dL (8.5-10.5)
[2023-06-06 05:31] LABS: Phosphorus 8.1 mg/dL (2.5-4.5)
[2023-06-06 06:29] LABS: Parathyroid Hormone 116.6 pg/mL (15-65)
[2023-06-06] MEDS: ipratropium-albuterol 3 mL Neb INHALATION ×4 (07:40→20:29)
[2023-06-06] MEDS: budesonide 0.5 mg/2 mL Neb INHALATION ×2 (07:40→20:29)
[2023-06-06] MEDS: metoprolol tartrate 50 mg Tablet PO ×2 (08:06→16:59)
[2023-06-06] MEDS: allopurinol 300 mg Tablet PO (08:06)
[2023-06-06] MEDS: clopidogrel 75 mg Tablet PO (08:06)
[2023-06-06] MEDS: amlodipine 10 mg Tablet PO (08:06)
[2023-06-06] MEDS: methIMAzole 5 MG Tablet PO (08:06)
[2023-06-06] MEDS: terazosin 5 mg Capsule PO ×2 (08:06→16:59)
[2023-06-06] MEDS: tamsulosin 0.4 mg Capsule PO (08:06)
[2023-06-06] MEDS: sodium bicarbonate 650 mg Tablet 1300 MG PO ×2 (08:06→16:59)
[2023-06-06] MEDS: pantoprazole DR 40 mg Tablet PO (08:06)
[2023-06-06] MEDS: lidocaine 5% Patch 1 PATCH TOPICAL (08:07)
[2023-06-06] MEDS: FUROsemide 10 mg/mL SDV 10mL 80 MG IVP ×3 (08:07→21:07)
--- NOTE | 2023-06-06 08:49 | P.PN_ITS ---
Subjective Subjective: Patient's breathing is improved compared to yesterday. However still having shortness of breath. Plan for dialysis catheter placement and initiation of hemodialysis. Vitals/I&O/Wt Last Vital Signs Temp 97.8 F 06/05/23 19:00 Pulse 106 H 06/06/23 07:35 Resp 18 06/06/23 07:15 BP 97/67 06/06/23 04:00 Pulse Ox 94 06/06/23 07:15 O2 Del Method Heated High Flow 06/06/23 07:15 O2 Flow Rate 60 06/06/23 07:15 FiO2 60 06/06/23 07:15 06/05/23 06/06/23 06/06/23 22:59 06:59 14:59 Intake Total 150 / 300 100 / 400 Output Total 700 / 700 300 / 1000 Balance -550 / -400 -200 / -600 Weight last 48 hrs Weight 211 lb 6 oz Weight 213 lb 8 oz Physical Exam Narrative: GENERAL: Patient is alert, awake and oriented x3. [] NECK: No jugular vein distension. [] HEENT: No cyanosis. No icterus. No pallor. [] HEART: Regular S1 and S2. No murmur, rub or gallop. [] LUNGS: Clear to auscultate bilaterally. [] CENTRAL NERVOUS SYSTEM: Grossly nonfocal. [] EXTREMITIES: Left lower extremity with 1+ edema. Right BKA Urinary Catheter Management: Reed: Cath Placed During This Visit: yes Reason for Continuing Indwelling Catheter: Accurate Measurement of Urinary O utput in Critically Ill Patients Urinary Catheter Date of Insertion: 06/02/23 Urinary Catheter Time of Insertion: 20:45 Data 06/06/23 04:37 06/06/23 04:37 A&P Assessment and plan (1) Respiratory failure: (2) Congestive heart failure: (3) NSTEMI (non-ST elevated myocardial infarction): (4) CKD (chronic kidney disease), stage V: (5) Peripheral arterial disease: (6) Diabetes: Plan Continue medical therapy. Patient will be started on dialysis today. If respiratory status improves over the next few days, can consider coronary angiogram if patient agrees.In the past he refused it because did not want dialysis. Grossly LV systolic function is mildly reduced (was reported normal recently). Thank you for involving us with care of this patient. We will continue to janet nuñez. Please call with questions Attestations Medical Necessity Statement*: Care expected to cross 2 midnights. Coding Level of Care Code Acute Code for [facility] Diagnoses Respiratory failure J96.90 Congestive heart failure I50.9 NSTEMI (non-ST elevated myocardial infarction) I21.4 CKD (chronic kidney disease), stage V N18.5 Peripheral arterial disease I73.9 Diabetes E11.9
--- NOTE | 2023-06-06 09:30 | P.PN_ITS ---
Subjective Subjective: UOP remains low Medications: Reviewed: Yes Vitals/I&O/Wt Last Vital Signs Temp 97.8 F 06/05/23 19:00 Pulse 106 H 06/06/23 07:35 Resp 18 06/06/23 07:15 BP 97/67 06/06/23 04:00 Pulse Ox 94 06/06/23 07:15 O2 Del Method Heated High Flow 06/06/23 07:15 O2 Flow Rate 60 06/06/23 07:15 FiO2 60 06/06/23 07:15 06/05/23 06/06/23 06/06/23 22:59 06:59 14:59 Intake Total 150 / 300 100 / 400 Output Total 700 / 700 300 / 1000 Balance -550 / -400 -200 / -600 Weight last 48 hrs Weight 95.878 kg Weight 96.842 kg Physical Exam 2 Narrative: awake, alert S1S2 RRR Lungs clear hira + edema Urinary Catheter Management: Reed: Cath Placed During This Visit: yes Reason for Continuing Indwelling Catheter: Accurate Measurement of Urinary Output in Critically Ill Patients Urinary Catheter Date of Insertion: 06/02/23 Urinary Catheter Time of Insertion: 20:45 Data 06/06/23 04:37 06/06/23 04:37 A&P Assessment and plan (1) CKD (chronic kidney disease), stage V: Plan 1. CKD stage IV/V with volume overload, recurrent admissions for same. Patient would benefit from initiation of dialysis for volume management in the setting of CHF and advanced CKD. -Patient agrees for HD initiation, plan for tunneled catheter placement for long-term HD--> Inititate HD once catheter placed -Switched Lasix to 80 mg IV every 8 hours along with IV albumin 25 g every 8 hours.No sig UOP -We will check UPCR, likely have nephrotic proteinuria. -Avoid nephrotoxins and IV contrast studies. 2. Acute on chronic shortness of breath: Currently on BiPAP, multifactorial secondary to volume overload and possible pneumonitis 3. Anemia: We will order Procrit, likely from advanced CKD, also check iron studies 4. MBD: Check phosphorus vitamin D and PTH levels 5. History of diabetic foot wounds 6. Diabetes 7. History of hypertension Patient evaluated using audiovisual cart. Time spent 40 minutes Attestations Medical Necessity Statement*: per medicine Coding Level of Care Code Acute Code for Chg Fwd Diagnoses CKD (chronic kidney disease), stage V N18.5
--- NOTE | 2023-06-06 10:02 | PC.SLP ---
SURGICAL PROCESSOR treatment attempted; nursing stated patient is NPO for testing.
--- NOTE | 2023-06-06 10:19 | PC.NURSE ---
Temp Dialysis line placed by Dr. Ambrosio, informed this nurse line is ready for Dialysis
[2023-06-06 11:26] LABS: Glucose Point of Care 109 mg/dL (70-110)
[2023-06-06] MEDS: cyclobenzaprine 10 mg Tablet PO ×2 (12:53→21:20)
--- NOTE | 2023-06-06 12:57 | P.PN_ITS ---
Subjective Subjective: He reports today he is feeling better. He is breathing somewhat easier. Has had hemodialysis catheter placed. Awaiting dialysis. Vitals/I&O/Wt Last Vital Signs Temp 98.1 F 06/06/23 21:33 Pulse 97 06/07/23 00:06 Resp 22 H 06/07/23 00:06 BP 111/57 06/07/23 00:00 Pulse Ox 94 06/07/23 00:06 O2 Del Method Heated High Flow 06/07/23 00:06 O2 Flow Rate 60 06/07/23 00:06 FiO2 80 06/07/23 00:06 06/06/23 06/06/23 06/07/23 14:59 22:59 06:59 Intake Total 350 / 350 650 / 1000 Output Total 1688 / 1688 Balance 350 / 350 -1038 / -688 Weight last 48 hrs Weight 96.7 kg Weight 95.878 kg Weight 96.842 kg Physical Exam Const: COMMON NORMALS: patient oriented x3 and alert GENERAL APPEARANCE: cooperative ORIENTATION/CONSCIOUSNESS: Yes awake HENMT: COMMON NORMALS: oropharynx normal Neck/C-Spine: COMMON NORMALS: no JVD Resp: COMMON NORMALS: normal respiratory effort and clear to auscultation bilaterally ( mildly diminished but improved air entry) AUSCULTATION: clear to auscultation bilaterally ( mildly diminished but improved air entry) OTHER: HHF Cardio: COMMON NORMALS: no JVD, regular rhythm, S1 normal heart sound present, S2 normal heart sound present and No murmurs present (Cardio) RHYTHM: regular rhythm HEART SOUNDS: S1 normal heart sound present and S2 normal heart sound present GI: COMMON NORMALS: Normal to inspection, nondistended, normoactive bowel sounds present, Soft to palpation and non-tender PALPATION: Yes Soft to palpation Extremity: COMMON NORMALS: no joint enlargement OTHER: LLE edema 2+ below the knee, 1+ in the thigh. Mild erythema with edema and stasis below the left knee. RLE BKA Neuro: COMMON NORMALS: patient oriented x3 and moves all extremities SENSORIUM/ORIENTATION: Yes alert Skin: OTHER: Diabetic L foot wounds Urinary Catheter Management: Reed: Cath Placed During This Visit: yes Reason for Continuing Indwelling Catheter: Accurate Measurement of Urinary Output in Critically Ill Patients Urinary Catheter Date of Insertion: 06/02/23 Urinary Catheter Time of Insertion: 20:45 Data 06/06/23 04:37 06/06/23 04:37 A&P Assessment and plan (1) Respiratory failure: this morning still respiratory failure requiring support on 60 L 60% HHF. however, noted improved air entry, resolved wheezing. Subjectively he is feeling better. Appears aspiration pneumonitis is improving. Additionally underwent placement of dialysis catheter To undergo dialysis today. Subsequently with some improvement of FiO2 down to 50%. Chest x-ray from yesterday noted with bilateral interstitial airspace disease. As symmetric pleural effusions, right greater than left. At continued risk of deterioration, intubation, mechanical ventilation. BiPAP support as needed. With worsening BUN, uremia, concern for bleeding. Lovenox has been held for dialysis catheter placement. For now resume only prophylactic dose. Reassess chemistry. Consider resumption of therapeutic dose. condition secondary to CHF as well as aspiration pneumonitis. Today noted wheezes, diminished air entry. Increased Frequency, add as needed, add inhaled budesonide. Repeated chest x-ray, noted interstitial changes, suspect secondary to aspiration pneumonitis. Noted negative COVID-19 PCR. He is otherwise afebrile, no focal consolidation, minimal leukocytosis, for now will not change antibiotics. Continue aspiration precautions. Dysphagia diet, although n.p.o. for now. Additionally decompensated CHF, poor urine output, discussed with him this morning, started on Lasix drip, urine output has picked up some, however, is requiring high rate of Lasix infusion, unfortunate appears to be progressing to renal failure, discussed with him request for nephrology consultation with consideration for need for hemodialysis. Discussed with nephrology. N.p.o. for now. pdated night physician on our discussion as well in case intubation and mechanical ventilatory support was needed he would be agreeable, but states that he has a very narrow throat in case needing intubation. (2) Congestive heart failure: Hemodialysis as above. Discussed with him fluid restriction. Switched to trial Lasix drip today but with lackluster response. He has been feeling achy today, some generalized pain, some in the left shoulder, obtain troponin EKG series, troponin elevated 1693 baseline, 2 hours 1712. Nonspecific T wave abnormality. Requested limited TTE follow-up with consideration of possible NSTEMI. Requested assessment by cardiology. Discussed with him regarding starting anticoagulation with Lovenox, risk of bleeding given also worsening BUN, additional consideration that we cannot exclude PE as well. Lower extremity duplex noted negative for DVT. Today BUN noted 70, creatinine 5. Sodium 137, potassium 4.3. Bicarb 22. Anion gap 24.3. Monitor electrolytes, at risk of electrolyte disturbance. At risk of arrhythmia. Monitor on telemetry. As he is still in respiratory failure, decompensated CHF, possible aspiration, at risk of need of ventilatory support, at risk of renal failure, for now will continue treatment in ICU. (3) CKD (chronic kidney disease), stage V: With acute renal failure, dialysis catheter obtained, initiated dialysis. As per discussion with him and nephrology, discussed with case management we will plan for continued hemodialysis after discharge. (4) Aortic stenosis: (5) Diabetes: insulin sliding scale (6) Transaminitis: Improving transaminitis. Reassess liver parameters. Noted negative hepatitis panel and RUQ us with unremarkable appearing liver. may jenniffer related to hepatic congestion Hold statin for now. Follow-up liver parameters. Plan Diabetic foot wounds: Continue wound care Aches and pains: Has been uncomfortable, generalized pain, check CK, no rhabdomyolysis. Continue Tylenol, lidocaine patch. Add Dilaudid low-dose 0.2 mg, was giving him partial relief at every 4 hour interval for about 2 hours, increased to every 2 hours as needed after discussion of risks. Discussed with case management Attestations Medical Necessity Statement*: Continue admission for respiratory failure, decompensated CHF,aspiration pneumonitis, renal failure. Coding Level of Care Code Critical Care >/= 30 minutes Critical care time (in minutes): 40 The high probability of a clinically significant, sudden or life threatening deterioration, as referenced in this documentation, required my full and direct attention, intervention and personal management. The critical care time shown is in addition to time spent performing any reported separately billable procedures and includes the following: [x] Data and vital sign review and interpretation [x ] Patient assessment, examination and intervention [x] Medication orders and management [x] Patient/Family updates as able [x] Care Coordination and Documentation. Diagnoses Respiratory failure J96.90 Congestive heart failure I50.9 CKD (chronic kidney disease), stage V N18.5 Aortic stenosis I35.0 Diabetes E11.9 Transaminitis R74.01
--- NOTE | 2023-06-06 14:14 | P.CONIM_ITS ---
Providers/Reason For Consult Consulting Physician/Specialty*: Dr. Akira Ambrosio DO Reason for Consult*: Temporary hemodialysis catheter placement Attending Physician: Vazquez Ulloa Primary Care Provider: César Gallegos DO History of Present Illness History of Present Illness Matthew Barrios Jr is a 58 year old male with stage IV chronic kidney disease and other past medical history as below who presents to the hospital with increasing difficulty breathing. He is found to have pulmonary vascular congestion. He now has acute kidney injury on top of his chronic kidney disease. Nephrology is requested temporary hemodialysis catheter placement. He denies any pain or other symptoms Review of Systems General: Reports: 10 or more systems reviewed and unremarkable except in HPI and below Medications/Allergies Home Medications Medication Instructions Recorded Confirmed Last Taken Type amlodipine 10 mg tablet 10 mg PO QAM 01/21/20 06/02/23 06/02/23 History terazosin 5 mg capsule 5 mg PO BID 08/18/20 06/02/23 06/02/23 History atorvastatin 80 mg tablet 80 mg PO BEDTIME 10/05/20 06/02/23 06/01/23 History cyclobenzaprine 10 mg tablet 10 mg PO BEDTIME PRN Muscle Spasm 06/14/21 06/02/23 Unknown History pentoxifylline 400 mg 400 mg PO BID 03/21/22 06/02/23 06/02/23 History tablet,extended release albuterol sulfate 90 mcg/actuation 2 puff inhalation Q6H PRN 05/06/23 06/02/23 Unknown History aerosol inhaler Shortness Of Breath allopurinol 300 mg tablet 300 mg PO QAM 05/06/23 06/02/23 06/02/23 History aspirin 81 mg tablet,delayed 81 mg PO BEDTIME 05/06/23 06/02/23 06/02/23 History release cetirizine 10 mg tablet 10 mg PO BEDTIME 05/06/23 06/02/23 06/02/23 History insulin lispro 100 unit/mL See Rx Instructions .Route .COMPLEX 05/06/23 06/02/23 06/02/23 History subcutaneous pen sodium bicarbonate 650 mg tablet 1,300 mg PO BID 05/06/23 06/02/23 06/02/23 His tory umeclidinium 62.5 mcg/actuation 1 inh inhalation DAILY 05/06/23 06/02/2323 History blister powder for inhalation (Incruse Ellipta) bumetanide 2 mg tablet 1 mg PO BID 30 days #30 tabs 05/09/23 06/02/23 06/02/23 Rx acetaminophen 500 mg tablet 1,500 mg PO BEDTIME 05/20/23 06/02/23 06/01/23 History insulin glargine 100 unit/mL (3 38 unit SUBCUT QAM 05/20/23 06/02/23 06/02/23 History mL) subcutaneous pen (Lantus Solostar U-100 Insulin) acetaminophen 325 mg tablet 650 mg PO QID PRN Pain 06/02/23 06/02/23 Unknown History bisacodyl 10 mg rectal suppository 10 mg SC DAILY PRN Constipation 06/02/23 06/02/23 Unknown History (Dulcolax (bisacodyl)) bisacodyl 5 mg tablet,delayed 5 mg PO DAILY PRN Constipation 06/02/23 06/02/23 Unknown History release (Dulcolax (bisacodyl)) metoprolol tartrate 50 mg tablet 50 mg PO BID 06/02/23 06/02/23 06/02/23 History sodium phosphates 19 gram-7 118 ml SC DAILY PRN Constipation 06/02/23 06/02/23 Unknown History gram/118 mL enema (Fleet Enema) vitamins A and D-white See Rx Instructions .Route .COMPLEX 06/02/23 06/02/23 06/02/23 History petrolatum-lanolin topical ointment (A and D (nancy, pet) topical ointment) Allergies Allergy/AdvReac Type Severity Reaction Status Date / Time furosemide [From Lasix] Allergy Intermediate kidney Verified 06/02/23 09:55 complications [place]nut Allergy Unknown inknown Verified 06/02/23 09:55 morphine Allergy ADR-Halluci Verified 06/02/23 09:55 nating trazodone Allergy RASH Verified 06/02/23 09:55 Current Medications Generic Name Dose Route Start Last Admin Trade Name Freq PRN Reason Stop Dose Admin Acetaminophen 650 mg 06/03/23 08:30 06/05/23 13:11 Acetaminophen 325 Mg Tablet PO 650 mg QID PRN Administration Pain Acetaminophen 1,000 mg 06/03/23 21:00 06/05/23 22:11 Acetaminophen 500 Mg Tablet PO 1,000 mg BEDTIME KIM Administration Albuterol/Ipratropium 3 ml 06/05/23 16:00 06/06/23 11:11 Ipratropium-Albuterol 3 Ml Neb INHALATION 3 ml Q4H.RESPIRATORY KIM Administration Allopurinol 300 mg 06/03/23 06:00 06/06/23 08:06 Allopurinol 300 Mg Tablet PO 300 mg QAM KIM Administration Amlodipine Besylate 10 mg 06/03/23 06:00 06/06/23 08:06 Amlodipine 10 Mg Tablet PO 10 mg QAM KIM Administration Aspirin 81 mg 06/02/23 21:00 06/05/23 22:11 Aspirin 81 Mg Ec Tablet PO 81 mg BEDTIME KIM Administration Atorvastatin Calcium 80 mg 06/02/23 21:00 06/02/23 20:03 Atorvastatin 40 Mg Tablet PO Not Given BEDTIME KIM Budesonide 0.5 mg 06/05/23 20:00 06/06/23 07:40 Budesonide 0.5 Mg/2 Ml Neb INHALATION 0.5 mg BID.RESPIRATORY KIM Administration Clopidogrel Bisulfate 75 mg 06/03/23 09:00 06/06/23 08:06 Clopidogrel 75 Mg Tablet PO 75 mg DAILY KIM Administration Cyclobenzaprine HCl 10 mg 06/04/23 11:39 06/06/23 12:53 Cyclobenzaprine 10 Mg Tablet PO 10 mg TID PRN Administration MUSCLE SPASMS Enoxaparin Sodium 95 mg 06/05/23 17:00 06/05/23 17:38 Enoxaparin 100 Mg/Ml Syringe SUBCUT 95 mg Q24H KIM Administration Furosemide 80 mg 06/05/23 22:00 06/06/23 08:07 Furosemide 10 Mg/Ml Sdv 10ml IVP 80 mg TID KIM Administration Hydromorphone HCl 0.2 mg 06/05/23 19:28 06/06/23 12:52 Hydromorphone 1 Mg/Ml Inj 1 Ml IVP 0.2 mg Q2H PRN Administration SEVERE PAIN Ceftriaxone Sodium 1,000 mg/ 50 mls @ 100 mls/hr 06/02/23 16:30 06/05/23 15 :49 Sodium Chloride IV 100 mls/hr Q24H KIM Administration Protocol Albumin Human 25 g in 100 mls @ 60 mls/hr 06/05/23 20:30 06/06/23 12:48 Albumin IV 60 mls/hr Q8H KIM Administration Insulin Glargine 38 unit 06/03/23 06:00 06/06/23 12:47 Insulin Glargine 100 Units/1 Ml SUBCUT Not Given QAM KIM Insulin Human Lispro 0 unit 06/02/23 18:00 06/06/23 12:47 Insulin Lispro 100 Unit/1 Ml SUBCUT Not Given WM&BEDTIME [facility] Protocol Lanolin 1 applic 06/03/23 13:50 06/04/23 12:09 Lanolin Oint 7 Gm TOPICAL 1 applic PRN PRN Administration DRYNESS Lidocaine 1 patch 06/03/23 17:00 06/06/23 08:07 Lidocaine 5% Patch TOPICAL 1 patch [id number] IKM Administration Methimazole 5 mg 06/03/23 09:00 06/06/23 08:06 Methimazole 5 Mg Tablet PO 5 mg DAILY KIM Administration Metolazone 5 mg 06/04/23 15:30 06/05/23 15:50 Metolazone 5 Mg Tablet PO 5 mg Q24H KIM Administration Metoprolol Tartrate 50 mg 06/02/23 18:00 06/06/23 08:06 Metoprolol Tartrate 50 Mg Tablet PO 50 mg BID KIM Administration Ondansetron HCl 4 mg 06/02/23 15:45 06/05/23 23:26 Ondansetron 2 Mg/Ml Sdv 2 Ml IVP 4 mg Q8H PRN Administration vomiting, or N/V if npo Pantoprazole Sodium 40 mg 06/03/23 09:00 06/06/23 08:[address] 40 Mg Tablet PO 40 mg DAILY KIM Administration Sodium Bicarbonate 1,300 mg 06/02/23 18:00 06/06/23 08:06 Sodium Bicarbonate 650 Mg Tablet PO 1,300 mg BID KIM Administration Tamsulosin HCl 0.4 mg 06/03/23 09:00 06/06/23 08:06 Tamsulosin 0.4 Mg Capsule PO 0.4 mg DAILY KIM Administration Terazosin HCl 5 mg 06/02/23 18:00 06/06/23 08:06 Terazosin 5 Mg Capsule PO 5 mg BID KIM Administration PFSH Acute PFSH: Medical History Chronic kidney disease Diabetes Graves disease History of tonsillitis Hypertension Surgical History History of amputation below knee History of cholecystectomy History of eye surgery History of knee surgery History of tonsillectomy and adenoidectomy Family History Grandmother Dementia Social History Smoking and tobacco status: former smoker Alcohol intake: never Substance/Drug Use: never Vitals/I&O/Wt Last Vital Signs Temp 97.8 F 06/05/23 19:00 Pulse 92 06/06/23 13:00 Resp 21 H 06/06/23 13:00 BP 120/53 06/06/23 13:00 Pulse Ox 91 06/06/23 13:00 O2 Del Method Heated High Flow 06/06/23 07:15 O2 Flow Rate 60 06/06/23 11:00 FiO2 60 06/06/23 11:00 06/05/23 06/06/23 06/06/23 22:59 06:59 14:59 Intake Total 150 / 300 200 / 500 250 / 250 Output Total 700 / 700 300 / 1000 Balance -550 / -400 -100 / -500 250 / 250 Weight last 48 hrs Weight 211 lb 6 oz Weight 213 lb 8 oz Physical Exam Narrative: General : Patient is well developed , no acute distress, oriented x3 Head : Normal cephalic, a-traumatic. Ears : Pinnae and external canal are normal. Hearing is normal. Eyes : PERRLA, Sclera and injection are normal. No conjunctival discharge. Nose : Mucous membranes are without erythema. Throat : buccal mucosa is normal, gums are without significant recession or hypertrophy. Lungs : Equal chest rise bilaterally, no use of accessory muscles, trachea is midline. Cor : Rate and rhythm are normal. Abdomen : Soft, ND, NT, no g/r/m Extremities : No edema, no cyanosis or clubbing, dorsalis pedis pulses are present bilaterally, non-tender to palpation of calves. Upper extremities are normal bilaterally. Back : non-tender to palpation, no CVA tenderness. Neuro : CN II - XII intact, Upper and lower extremities have equal and full strength Urinary Catheter Management: Reed: Cath Placed During This Visit: yes Reason for Continuing Indwelling Catheter: Accurate Measurement of Urinary Output in Critically Ill Patients Urinary Catheter Date of Insertion: 06/02/23 Urinary Catheter Time of Insertion: 20:45 Data 06/08/23 03:45 06/08/23 03:45 A&P Assessment and plan (1) Congestive heart failure: (2) CKD (chronic kidney disease), stage V: Plan Temporary hemodialysis catheter placement N.p.o. after midnight Permacath placement tomorrow The risks and benefits of the procedure, including but not limited to, bleeding, infection, infection requiring Mediport removal antibiotic therapy and repeat surgery, damage to surrounding structures, scar, numbness, pain, pneumothorax requiring thoracostomy tube, were explained to the patient. He/She is understanding of the risks and wishes to proceed. Coding Level of Care Code 79134 Diagnoses Congestive heart failure I50.9 CKD (chronic kidney disease), stage V N18.5
--- NOTE | 2023-06-06 14:15 | P.PCN_ITS ---
Procedure Note: Procedure: Preoperative diagnosis: Acute renal failure requiring emergent dialysis Postoperative diagnosis: Same Procedure: Placement of Mahurkar catheter in the right femoral vein Surgeon: Dr. Akira Ambrosio, DO Anesthesia: Local Description of procedure: The patient's right groin was prepped and draped in a sterile manner. 5 mL of 1% lidocaine was infiltrated at the site of planned entry, an introducer needle was used to access the right femoral vein. Guidewire was passed through the introducer needle and the introducer needle was removed. Serial dilators were passed over the guidewire after the skin incision was extended using 11 blade and Mahurkar catheter was then passed over the christopher dewire and the guidewire was removed. The catheter was sutured to the skin using 2-0 Ethilon suture. Sterile dressings were applied. Coding Level of Care Code Acute Code for Chg Fwd
[2023-06-06] MEDS: metOLazone 5 MG Tablet PO (15:10)
[2023-06-06 16:56] LABS: Glucose Point of Care 182 mg/dL (70-110)
[2023-06-06] MEDS: insulin lispro 100 unit/1 mL SUBCUT (16:59)
[2023-06-06] MEDS: cefTRIAXone 1,000 MG in sodium chloride 0.9% (plus) 50 ML 100 MG IV (16:59)
[2023-06-06] MEDS: albumin 12.5 GM/50 ML VIAL IV (17:34)
--- NOTE | 2023-06-06 17:53 | PC.NURSE ---
Shift Summary: currently getting Dialysis, Tolerated HHF majority of shift currently on Bipap, uneventful shift
[2023-06-06] MEDS: heparin, porcine 1,000 unit/mL INJ 10 mL 1000 UNIT IV (18:41)
[2023-06-06 20:21] LABS: Glucose Point of Care 120 mg/dL (70-110)
[2023-06-06 20:55] LABS: Hepatitis B Surface AB 3.5 (11.5-1000)
[2023-06-06] MEDS: acetaminophen 500 mg Tablet 1000 MG PO (21:08)
[2023-06-06] MEDS: aspirin 81 mg EC Tablet PO (21:08)
--- NOTE | 2023-06-06 21:38 | PC.HD ---
Temporary dialysis cath placed to right groin today and initial treatment completed. Pt had asymptomatic hypotension during treatment, resolved with infusion of 50ml 25% albumin. Pt tolerated treatment well.
[2023-06-06 23:00] LABS: Glucose Point of Care 107 mg/dL (70-110)
[2023-06-07] VITALS (40 sets, daily range): BP systolic 74–125; BP diastolic 38–77; PULSE 95–118; RESP 15–26; TEMP 36.7; O2SAT 88–100
[2023-06-07] MEDS: ipratropium-albuterol 3 mL Neb INHALATION ×7 (00:05→23:01)
[2023-06-07] MEDS: enoxaparin 30 mg/0.3 mL Syringe SUBCUT (01:42)
[2023-06-07] MEDS: HYDROmorphone 1 mg/mL INJ 1 mL 0.2 MG IVP ×5 (05:05→22:28)
[2023-06-07] MEDS: albumin 25 G/100 ML BAG 60 G IV (05:06)
[2023-06-07] MEDS: budesonide 0.5 mg/2 mL Neb INHALATION ×2 (07:36→19:31)
[2023-06-07] MEDS: tamsulosin 0.4 mg Capsule PO (08:28)
[2023-06-07] MEDS: clopidogrel 75 mg Tablet PO (08:28)
[2023-06-07] MEDS: terazosin 5 mg Capsule PO ×2 (08:28→17:25)
[2023-06-07] MEDS: allopurinol 300 mg Tablet PO (08:28)
[2023-06-07] MEDS: lidocaine 5% Patch 1 PATCH TOPICAL (08:28)
[2023-06-07] MEDS: sodium bicarbonate 650 mg Tablet 1300 MG PO ×2 (08:28→17:25)
[2023-06-07] MEDS: pantoprazole DR 40 mg Tablet PO (08:28)
[2023-06-07] MEDS: methIMAzole 5 MG Tablet PO (08:28)
[2023-06-07] MEDS: FUROsemide 10 mg/mL SDV 10mL 80 MG IVP (08:29)
--- NOTE | 2023-06-07 09:54 | P.PN_ITS ---
Subjective Subjective: s/p temp catheter placement yesterday and HD done Medications: Reviewed: Yes Vitals/I&O/Wt Last Vital Signs Temp 98.1 F 06/06/23 21:33 Pulse 103 H 06/07/23 09:00 Resp 19 H 06/07/23 09:00 BP 96/42 06/07/23 09:00 Pulse Ox 90 06/07/23 09:00 O2 Del Method Heated High Flow 06/07/23 07:40 O2 Flow Rate 50 06/07/23 07:40 FiO2 60 06/07/23 08:00 06/06/23 06/07/23 06/07/23 22:59 06:59 14:59 Intake Total 650 / 1000 100 / 1100 50 / 50 Output Total 1888 / 1888 / 1988 Balance -1238 / -888 0 / -888 50 / 50 Weight last 48 hrs Weight 93.95 kg Weight 96.7 kg Weight 95.878 kg Physical Exam 2 Narrative: awake, alert S1S2 RRR Lungs clear hira + edema Urinary Catheter Management: Reed: Cath Placed During This Visit: yes Reason for Continuing Indwelling Catheter: Accurate Measurement of Urinary Output in Critically Ill Patients Urinary Catheter Date of Insertion: 06/02/23 Urinary Catheter Time of Insertion: 20:45 Data 06/06/23 04:37 06/06/23 04:37 Micro: Microbiology 06/02/23 09:19 Blood Culture - Final Blood NO GROWTH AFTER 5 DAYS 06/02/23 09:09 Blood Culture - Final Blood NO GROWTH AFTER 5 DAYS A&P Assessment and plan (1) CKD (chronic kidney disease), stage V: Plan 1. CKD stage IV/V with volume overload, recurrent admissions for same. Patient would benefit from initiation of dialysis for volume management in the setting of CHF and advanced CKD. -Patient agrees for HD initiation, s/p temp catheter and HD done yesterday , plan for tunneled catheter placement for long-term HD--> Inititated HD , HD # 2 today -We will check UPCR, likely have nephrotic proteinuria. -Avoid nephrotoxins and IV contrast studies. 2. Acute on chronic shortness of breath: Currently on BiPAP, multifactorial secondary to volume overload and possible pneumonitis 3. Anemia: We will order Procrit, likely from advanced CKD, also check iron studies 4. MBD: Check phosphorus vitamin D and PTH levels 5. History of diabetic foot wounds 6. Diabetes 7. History of hypertension Patient evaluated using audiovisual cart. Time spent 20 minutes Attestations Medical Necessity Statement*: per medicine Coding Level of Care Code Acute Code for Chg Fwd Diagnoses CKD (chronic kidney disease), stage V N18.5
[2023-06-07] MEDS: albumin 12.5 GM/50 ML VIAL IV ×3 (10:49→15:42)
--- NOTE | 2023-06-07 11:17 | PM.PN ---
Subjective Subjective: He is due to have tunneled catheter placement. He is currently on heated high flow and BiPap at night and then as needed No events on telemetry. Medications: Reviewed: Yes Vitals/I&O/Wt Last Vital Signs Temp 98.1 F 06/06/23 21:33 Pulse 103 H 06/07/23 09:00 Resp 19 H 06/07/23 09:00 BP 96/42 06/07/23 09:00 Pulse Ox 90 06/07/23 09:00 O2 Del Method Heated High Flow 06/07/23 07:40 O2 Flow Rate 50 06/07/23 07:40 FiO2 60 06/07/23 08:00 06/06/23 06/07/23 06/07/23 22:59 06:59 14:59 Intake Total 650 / 1000 100 / 1100 100 / 100 Output Total 1888 / 1888 100 / 1988 Balance -1238 / -888 0 / -888 100 / 100 Weight last 48 hrs Weight 207 lb 2 oz Weight 213 lb 2.992 oz Weight 211 lb 6 oz Physical Exam Narrative: GENERAL: Averagely built and averagely nourished in no acute distress HEENT: Extraocular movement intact. No pallor or icterus. NECK: central trachea, No JVD. No carotid bruit. CARDIOVASCULAR SYSTEM: S1-S2 regular. No murmur rubs or gallops RESPIRATORY SYSTEM: Chest clear to auscultation. No wheezes rhonchi or rubs heard. ABDOMEN: Soft, nontender and nondistended. Normal bowel sounds present. EXTREMITIES: No cyanosis. 1+ edema. No signs of chronic venous insufficiency. MEDICAL INSTRUCTOR: Patient is alert oriented ?3. No focal neurological deficits. Urinary Catheter Management: Reed: Cath Placed During This Visit: yes Reason for Continuing Indwelling Catheter: Accurate Measurement of Urinary Output in Critically Ill Patients Urinary Catheter Date of Insertion: 06/02/23 Urinary Catheter Time of Insertion: 20:45 Data 06/06/23 04:37 06/06/23 04:37 Micro: Microbiology 06/02/23 09:19 Blood Culture - Final Blood NO GROWTH AFTER 5 DAYS 06/02/23 09:09 Blood Culture - Final Blood NO GROWTH AFTER 5 DAYS A&P Assessment and plan (1) Respiratory failure: (2) Congestive heart failure: (3) NSTEMI (non-ST elevated myocardial infarction): (4) CKD (chronic kidney disease), stage V: (5) Peripheral arterial disease: (6) Diabetes: Plan Continue medical therapy. Patient is now on dialysis. Once respiratory status improves over the next few days, will consider coronary angiogram if patient agrees. In the past he refused it because did not want dialysis. Grossly LV systolic function is mildly reduced. Thank you for involving us with care of this patient. We will continue to follow. Please call with questions Attestations Medical Necessity Statement*: needs hospital stay for respiratory failure Coding Level of Care Code 32854 Diagnoses Respiratory failure J96.90 Congestive heart failure I50.9 NSTEMI (non-ST elevated myocardial infarction) I21.4 CKD (chronic kidney disease), stage V N18.5 Peripheral arterial disease I73.9 Diabetes E11.9
--- NOTE | 2023-06-07 11:30 | PC.SOCIAL ---
IMM Update: IMM Update. Page 2 of IMM updated/reviewed with pt at 0921. Copy provided and placed in pt file.
[2023-06-07 11:54] LABS: Glucose Point of Care 186 mg/dL (70-110)
[2023-06-07] MEDS: cyclobenzaprine 10 mg Tablet PO ×2 (13:49→22:03)
[2023-06-07] MEDS: metOLazone 5 MG Tablet PO (14:55)
[2023-06-07 17:02] LABS: Glucose Point of Care 144 mg/dL (70-110)
[2023-06-07] MEDS: insulin lispro 100 unit/1 mL SUBCUT ×2 (17:25→20:31)
[2023-06-07] MEDS: ondansetron 2 mg/ML SDV 2 mL 4 MG IVP (19:02)
[2023-06-07 20:26] LABS: Glucose Point of Care 216 mg/dL (70-110)
[2023-06-07] MEDS: cefTRIAXone 1,000 MG in sodium chloride 0.9% (plus) 50 ML 100 MG IV (20:28)
--- NOTE | 2023-06-07 20:49 | P.PN_ITS ---
Subjective Subjective: Today he is feeling similar to yesterday. Some chest pressure, later clarified that it was pleuritic. Some generalized body ache. Vitals/I&O/Wt Last Vital Signs Temp 98.1 F 06/07/23 18:32 Pulse 108 H 06/07/23 20:00 Resp 20 H 06/07/23 20:00 BP 122/56 06/07/23 20:00 Pulse Ox 95 06/07/23 20:00 O2 Del Method Heated High Flow 06/07/23 19:36 O2 Flow Rate 60 06/07/23 19:36 FiO2 60 06/07/23 20:00 06/07/23 06/07/23 06/07/23 06:59 14:59 22:59 Intake Total 100 / 1100 150 / 150 937 / 1087 Output Total 100 / 1988 1396 / 1396 Balance 0 / -888 150 / 150 -459 / -309 Weight last 48 hrs Weight 95.2 kg Weight 93.95 kg Weight 96.7 kg Weight 95.878 kg Physical Exam Const: COMMON NORMALS: patient oriented x3 and alert GENERAL APPEARANCE: cooperative ORIENTATION/CONSCIOUSNESS: Yes awake HENMT: COMMON NORMALS: oropharynx normal Neck/C-Spine: COMMON NORMALS: no JVD Resp: COMMON NORMALS: normal respiratory effort and clear to auscultation bilaterally ( mildly diminished but improved air entry) AUSCULTATION: clear to auscultation bilaterally ( mildly diminished but improved air entry), wheezes and diminished lung sounds OTHER: HHF Cardio: COMMON NORMALS: no JVD, regular rhythm, S1 normal heart sound present, S2 normal heart sound present and No murmurs present (Cardio) RHYTHM: regular rhythm HEART SOUNDS: S1 normal heart sound present and S2 normal heart sound present GI: COMMON NORMALS: Normal to inspection, nondistended, normoactive bowel sounds present, Soft to palpation and non-tender PALPATION: Yes Soft to palpation Extremity: COMMON NORMALS: no joint enlargement OTHER: LLE edema 2+ below the knee, 1+ in the thigh. Mild erythema with edema and stasis below the left knee. RLE BKA Neuro: COMMON NORMALS: patient oriented x3 and moves all extremities SENSORIUM/ORIENTATION: Yes alert Skin: OTHER: Diabetic L foot wounds Urinary Catheter Management: Reed: Cath Placed During This Visit: yes Reason for Continuing Indwelling Catheter: Accurate Measurement of Urinary Output in Critically Ill Patients Urinary Catheter Date of Insertion: 06/02/23 Urinary Catheter Time of Insertion: 20:45 Data 06/06/23 04:37 06/06/23 04:37 Micro: Microbiology 06/02/23 09:19 Blood Culture - Final Blood NO GROWTH AFTER 5 DAYS 06/02/23 09:09 Blood Culture - Final Blood NO GROWTH AFTER 5 DAYS A&P Assessment and plan (1) Respiratory failure: Wheezing overall has improved, but still some mild wheezing noted today. Continues on heated high flow, as tunneled catheter placement has been deferred for now, starting on dysphagia diet. Continue speech therapy follow-up with risk of aspiration. Continue treatment of aspiration pneumonia, With slow improvement will broaden antibiotics to Zosyn. blood pressure initially soft this morning, then improved, but appears again soft this evening having to initiate Levophed. Continue hemodialysis as tolerating, At continued risk of deterioration, intubation, mechanical ventilation. BiPAP s upport as needed. Resumed on prophylactic Lovenox. 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 (2) Congestive heart failure: Hemodialysis as above as tolerating. Somewhat difficult yesterday due to soft blood pressures, received albumin. In negative balance. Overall edema appears to be subsiding. Discussed with cardiology, considering further assessment, possibly with angiography depending on Saturday after placement of tunneled hemodialysis catheter on Saturday, discussed with surgery as well. Tunnel catheter deferred today due to soft blood pressure, subsequently hypotensive, and to allow for further optimize intravenous condition as he at current time does have access with temporary dialysis catheter. Fluid restriction. Reassess chemistry for renal function. (3) CKD (chronic kidney disease), stage V: With acute renal failure, dialysis catheter obtained, initiated dialysis. Will plan for continued hemodialysis after discharge. Confirmed with case management. (4) Aortic stenosis: (5) Diabetes: insulin sliding scale . Insulin was held this morning as he was n.p.o. yesterday and this morning. Subsequently resumed oral diet. Will resume insulin Lantus 25 units nightly. (6) Transaminitis: reassess CMP. Improving transaminitis. Reassess liver parameters. Noted negative hepatitis panel and RUQ us with unremarkable appearing liver. may jenniffer related to hepatic congestion Hold statin for now. Follow-up liver parameters. Plan Diabetic foot wounds: Continue wound care Aches and pains: Slightly better, but still some generalized body ache. C ontinue Dilaudid as needed. CK noted 44. Continue Tylenol, lidocaine patch. Add Dilaudid low-dose 0.2 mg, was giving him partial relief at every 4 hour interval for about 2 hours, increased to ev alma 2 hours as needed after discussion of risks. Discussed with Discharge planning. Attestations Medical Necessity Statement*: Continue admission for assessment management of respiratory failure, renal fa ilure, decompensated CHF, aspiration pneumonia. Coding Level of Care Code Critical Care >/= 30 minutes Critical care time (in minutes): 45 The high probability of a clinically significant, sudden or life threatening deterioration, as referenced in this documentation, required my full and direct attention, intervention and personal management. The critical care time shown is in addition to time spent performing any reported separately billable procedures and includes the following: [x] Data and vital sign review and interpretation [x ] Patient assessment, examination and intervention [x] Medication orders and management [x] Patient/Family updates as able [x] Care Coordination and Documentation. Diagnoses Respiratory failure J96.90 Congestive heart failure I50.9 CKD (chronic kidney disease), stage V N18.5 Aortic stenosis I35.0 Diabetes E11.9 Transaminitis R74.01
[2023-06-07] MEDS: insulin glargine 100 units/1 mL 25 UNIT SUBCUT (21:21)
[2023-06-07] MEDS: piperacillin-tazobactam 3.375 GM in sodium chloride 0.9% (plus) 50 ML IV (21:21)
[2023-06-07] MEDS: acetaminophen 325 mg Tablet 650 MG PO (22:03)
--- NOTE | 2023-06-07 22:29 | PC.NURSE ---
Pt yelling out. (Call light is within reach and pt educated on use of call light multiple times during current shift.) Pt states I am hurting! I need pain medicine! This nurse explained that tylenol and flexeril were given recently. Pt stated I hurt all over! I need pain medicine. Pt educated on pain medicine effects (low BP, nausea), but pt insisted he wanted pain medicine.
[2023-06-07] MEDS: guaiFENesin 600 mg Tablet PO (23:30)
[2023-06-08] VITALS (79 sets, daily range): BP systolic 86–131; BP diastolic 32–75; PULSE 80–173; RESP 14–20; TEMP 36.7–36.8; O2SAT 79–100
--- NOTE | 2023-06-08 | XRR_ITS ---
[facility] Final Radiology Report with Addendum Call: [phone] assistance Online chat: [email or web address] Name: ACE VALIENTE Age: 58Years M Date: 06/08/2023 SSN: -- : [id number] Study: XR CHEST 1 VIEW Requesting Physician: MELO SATFFORD Images: 1 Add?l Studies: Provided Clinical History: Intubation, OG tube Page 1 of 2 Addendum created by Howard Castro DO on 06/08/2023 8:05 AM Central Time ([place] & [place]): THIS REPORT CONTAINS FINDINGS THAT MAY BE CRITICAL TO PATIENT CARE. The findings were verbally communicated via telephone conference with MELO SALEEM at 8:04 AM CDT on 06/08/2023. The findings were acknowledged and understood. Initial Report created on 06/08/2023 8:04 AM Central Time ([place] & [place]): PROCEDURE INFORMATION: Exam: XR Chest Exam date and time: 06/08/2023 7:37 AM Age: 58 years old Clinical indication: Device placement; Other: Et and og placement; Additional info: Intubation, og tube TECHNIQUE: Imaging protocol: Radiologic exam of the chest. Views: 1 view. COMPARISON: 1. CR (CHEST, ) 06/05/2023 5:13 AM 2. CR (CHEST, ) 06/02/2023 8:49 AM 3. CR (CHEST, ) 05/05/2023 8:18 PM FINDINGS: Tubes, catheters and devices: Endotracheal tube terminates 5.5 cm above the juan diego, level of the mid clavicular heads. Enteric tube terminates below the diaphragm. Lungs: Interval complete opacification of the right hemithorax. Improved aeration of the left lung. Pleural spaces: Small left pleural effusion. No pneumothorax. Heart/Mediastinum: Unremarkable. No cardiomegaly. Bones/joints: Multiple chronic appearing posterior right rib fractures with corticated margins. Mild degenerative changes of the shoulders. IMPRESSION: 1. Support structures as above. 2. Interval complete opacification of the right hemithorax. Differential includes mucous plugging with atelectasis, large pleural effusion, worsening airspace disease. 3. Improved left lung aeration. Small left pleural effusion. Thank you for allowing us to participate in the care of your patient. Dictated and Authenticated by: Howard Castro DO 06/08/2023 8:04 AM Central Time ([place] & [place]) YONIS
[2023-06-08] MEDS: enoxaparin 30 mg/0.3 mL Syringe SUBCUT (02:06)
[2023-06-08] MEDS: ipratropium-albuterol 3 mL Neb INHALATION ×5 (03:59→19:34)
[2023-06-08 04:34] LABS: Basophils % 0.3 %; Eosinophils # 0.1 10^3/uL (0.0-0.8); Eosinophils % 0.5 %; Hematocrit 25.7 % (42.0-52.0); Hemoglobin 7.5 g/dL (11.7-16.6); Lymphocytes # 0.8 10^3/uL (0.8-4.8); Lymphocytes % 7.5 %; Mean Corpuscular HGB Conc 29.2 g/dL (30.0-36.0); Mean Corpuscular Hemoglobin 29.6 pg (28.0-34.0); Mean Corpuscular Volume 101.6 fl (80-94); Mean Platelet Volume 9.7 fL (7.4-10.4); Monocytes # 0.8 10^3/uL (0.2-0.9); Monocytes % 7.5 %; Neutrophils # 9.11 10^3/uL (1.8-7.7); Neutrophils % 83.7 %; Nucleated Red Blood Cells % 0 %; Platelet Count 312 10^3/cmm (130-400); Red Blood Count 2.53 10^6/uL (4.1-5.3); White Blood Count 10.9 10^3/uL (4.0-10.0)
[2023-06-08 04:59] LABS: Alanine Aminotransferase 13 U/L (0-41); Albumin Level 3.9 g/dL (3.5-5.2); Alkaline Phosphatase 113 U/L (40-130); Anion Gap 25.6 (5-19); Aspartate Amino Transferase 7 U/L (0-40); Blood Urea Nitrogen 50 mg/dL (6-20); Calcium 9.2 mg/dL (8.5-10.5); Carbon Dioxide 22 mmol/L (22-29); Chloride 94 mmol/L (98-107); Globulin 2.5 g/dL (1.3-4.6); Glomerular Filtration Rate 14.4 mL/min (90-130); Glucose 199 mg/dL (65-115); Osmolality Calculated 303 mOsm/kg (285-295); Potassium 4.6 mmol/L (3.5-5.1); Sodium 137 mmol/L (136-145); Total Bilirubin 0.4 mg/dL (0.15-1.2); Total Protein 6.4 g/dL (6.6-8.7)
[2023-06-08] MEDS: allopurinol 300 mg Tablet PO (05:13)
[2023-06-08] MEDS: HYDROmorphone 1 mg/mL INJ 1 mL 0.2 MG IVP (05:13)
[2023-06-08] MEDS: ondansetron 2 mg/ML SDV 2 mL 4 MG IVP (05:28)
--- NOTE | 2023-06-08 05:41 | PC.RESP ---
PATIENT HAS HAD SEVERAL EPISODES OF HIS OXYGEN SATURATINS DROPPING WHEN TAKEN OFF THE BIPAP, THE LOWEST SATURATIO THIS SHIFT WAS 72. PATIENT WITH NAUSEA AND VOMITING, PLACED ON HEATED HIGH FLOW AND SATURATIONS DROPPED TO 80, INCREASED TO 60 LITERS FLOW WITH 100%, SATURATION UP TO 84%, PLACED OXY MASK AT FLUSH AND SATURATIONS UP TO 86. PLACED BACK ON BIPAP AT THIS TIME. PATIENT INSTRUCTED TO CALL RN FOR ANY NAUSEA. RN AT BEDSIDE AND AWARE.
--- NOTE | 2023-06-08 05:44 | PC.NURSE ---
Pt became nauseas and stated he was going to throw up. This nurse removed the bipap and the pt began throwing up. An oxymask was applied and Chitra, RT was called to place HHF. Once HHF was on pt and nausea medicine given, RT tried to let pt stay off bipap, but pt O2 sat would not tolerate being off bipap. pt O2 lowered to 86%, and RT reapplied bipap. RT suggested a new CXR be ordered. This nurse voalted North, and he reviewed the last CXR done on 06/05 and called the unit. North stated pt may need CRRT and that based on last CXR, a new CXR would not change how he approaches treatment and that he would defer to dayshift for a new course of action.
--- NOTE | 2023-06-08 06:26 | PM.CCNAC ---
Critical Care Event Note The high probability of a clinically significant, sudden or life threatening deterioration of the patient's [] system(s) required my full and direct attention, intervention and personal management. The critical care time is as shown. This time is in addition to time spent performing any reported procedures but includes the following: [x] Data and vital sign review and interpretation [x] Patient assessment, examination and intervention [x] Documentation [x] Medication orders and management Critical Care Time Code activated: No Critical Care Time (min): 36 Additional information about critical care time: Called to bedside secondary to patient decompensation. Patient previously on 60% BiPAP. Has been on high flow during the day. Airway has been somewhat tenuous the last several days. Had to be taken off BiPAP. Currently on 100% nonrebreather/and high flow. Discussed with patient intubation which she agrees to. I think this is the safest option currently. Patient reports he has a very narrow airway, and difficult intubation in the past. I had been warned regarding this on check out by the hospitalist earlier in the week. Secondary to this reason I have called PROPERTY FIELD ADJUSTER/anesthesiology for intubation. Saturation currently on the patient is 95% on 100% nonrebreather with high flow oxygen. He is somewhat lethargic, but maintaining saturations currently. My current plan is intubation by anesthesia, mechanical ventilation, sedation with propofol and fentanyl. Coding Level of Care Code Acute Code for Gregorio Fwd
--- NOTE | 2023-06-08 06:27 | PC.NURSE ---
Patient began feeling nauseous, bipap was taken off and patient began to vomit. Patient was placed on heated highflow. Oxygen saturations continued to fall to 68. Nonrebreather was placed on patient in addition to heated highflow. Dr. Kat notifed and came to assess the patient. Respiratory therapist notifed and came to assess patient. Kirsten PAULINO contacted next of kin via phone.
--- NOTE | 2023-06-08 07:27 | XRR_ITS ---
PROCEDURE INFORMATION: Exam: XR Chest Exam date and time: 06/08/2023 7:37 AM Age: 58 years old Clinical indication: Device placement; Other: Et and og placement; Additional info: Intubation, og tube TECHNIQUE: Imaging protocol: Radiologic exam of the chest. Views: 1 view. COMPARISON: 1. CR (CHEST, ) 06/05/2023 5:13 AM 2. CR (CHEST, ) 06/02/2023 8:49 AM 3. CR (CHEST, ) 05/05/2023 8:18 PM FINDINGS: Tubes, catheters and devices: Endotracheal tube terminates 5.5 cm above the juan diego, level of the mid clavicular heads. Enteric tube terminates below the diaphragm. Lungs: Interval complete opacification of the right hemithorax. Improved aeration of the left lung. Pleural spaces: Small left pleural effusion. No pneumothorax. Heart/Mediastinum: Unremarkable. No cardiomegaly. Bones/joints: Multiple chronic appearing posterior right rib fractures with corticated margins. Mild degenerative changes of the shoulders. XR/XR chest 1V portable [id number] IMPRESSION: 1. Support structures as above. 2. Interval complete opacification of the right hemithorax. Differential includes mucous plugging with atelectasis, large pleural effusion, worsening airspace disease. 3. Improved left lung aeration. Small left pleural effusion.
[2023-06-08] MEDS: propofol 1,000 MG/100 ML INJ 2.86 MG IV (07:45)
--- NOTE | 2023-06-08 07:47 | CTR_ITS ---
PROCEDURE INFORMATION: Exam: CT Chest Without Contrast; Diagnostic Exam date and time: 06/08/2023 2:10 PM Age: 58 years old Clinical indication: Abnormal findings; Abnormal radiologic exam of lung or chest; Additional info: abnormal CXR TECHNIQUE: Imaging protocol: Diagnostic computed tomography of the chest without contrast. Radiation optimization: All CT scans at this facility use at least one of these dose optimization techniques: automated exposure control; mA and/or kV adjustment per patient size (includes targeted exams where dose is matched to clinical indication); or iterative reconstruction. REPORTING DATA: Count of CT and Cardiac NM exams in prior 12 months: This patient has received 2 known CTs and 0 known cardiac nuclear medicine studies in the 12 months prior to the current study. COMPARISON: 1. CR XR chest 1V portable [id number] 06/08/2023 10:43 AM 2. CR (CHEST, ) 06/08/2023 8:15 AM 3. CR (CHEST, ) 06/08/2023 7:37 AM RADIATION DOSE METRICS: Total DLP (mGy-cm): 697.48 FINDINGS: Tubes, catheters and devices: Endotracheal tube terminates 1 cm above the juan diego toward the right main bronchus. Enteric tube terminates in the stomach. Right upper extremity PICC terminates at the superior cavoatrial junction. Lungs: Incidental azygous fissure/lobe. Lapxv-zgdwjhh-dmjg-left lung dependent consolidations. There is heterogeneous hyperattenuation of the consolidations. Patchy ground-glass opacification of the otyqe-ieauldx-ttzi-left nonconsolidated lungs. Pleural spaces: Large right and moderate left pleural effusions. No pneumothorax. Heart: Small pericardial effusion. Coronary arteries: Heavy coronary artery calcification. Lymph nodes: No enlarged lymph nodes. Vasculature: Moderate systemic atherosclerotic calcification without aortic aneurysm. Pancreas: Pancreatic atrophy. Kidneys and ureters: Bilateral renal atrophy. Stomach and bowel: Couple fat and fluid containing anterior abdominal wall hernias, the largest located midline of moderate size. Intraperitoneal space: Mild ascites and fat stranding at the imaged upper abdomen. Bones/joints: Unremarkable. No acute fracture. Soft tissues: Bilateral gynecomastia. CT/CT chest wo con [id number] IMPRESSION: 1. Endotracheal tube terminates 1 cm above the juan diego toward the right main bronchus. Consider 1-2 cm retraction. 2. Additional support structures as above. 3. Large right and moderate left pleural effusions. 4. Rfjso-rjvwumd-ysqi-left lung dependent consolidations with heterogeneous hyperattenuation and ground-glass opacification. Differential considerations include aspiration, atelectasis, possibly infectious. The hyperdensity within the consolidations may represent aspirated contents or other etiology such as pulmonary alveolar microlithiasis or metastatic pulmonary calcification, particularly given atrophic kidneys. 5. Small pericardial effusion. 6. Atherosclerosis with heavy coronary artery calcification. 7. Mild ascites and fat stranding of the imaged upper abdomen. CT of the abdomen and pelvis could be considered to further evaluate. 8. Additional chronic and incidental findings as above.
--- NOTE | 2023-06-08 07:55 | XRR_ITS ---
PROCEDURE INFORMATION: Exam: XR Chest Exam date and time: 06/08/2023 8:15 AM Age: 58 years old Clinical indication: Device placement; Other: Intubation. Og tube placement TECHNIQUE: Imaging protocol: Radiologic exam of the chest. Views: 1 view. COMPARISON: 1. CR (CHEST, ) 06/08/2023 7:37 AM 2. CR (CHEST, ) 06/05/2023 5:13 AM 3. CR (CHEST, ) 06/02/2023 8:49 AM FINDINGS: Tubes, catheters and devices: Endotracheal tube terminates just below the level of the clavicular heads, approximately 2 cm above the expected location of the juan diego, which is obscured by patient rotation with resultant superimposed structures. Enteric tube terminates below the diaphragm. Lungs: Complete opacification of the right hemithorax. Pleural spaces: Small left pleural effusion. No pneumothorax. Heart/Mediastinum: Unremarkable. No cardiomegaly. Bones/joints: Previously indicated chronic appearing posterior right rib fractures now seen to represent summation artifact from sternal margin overlying the ribs. No evidence of acute fracture. XR/XR chest 1V portable [id number] IMPRESSION: 1. Support structures as above. 2. Stable complete opacification of the right hemithorax. 3. Small left pleural effusion.
[2023-06-08] MEDS: budesonide 0.5 mg/2 mL Neb INHALATION ×2 (08:01→19:33)
--- NOTE | 2023-06-08 08:03 | ANES.PROC ---
Anesthesia Procedures Procedure/Date: 06/08/23 Intubation Intubation: Time Out Performed: Yes Consent: requested by attending/covering physician Sedative (amount): other (Propofol 100mg, Succ 100mg, fentanyl 100mcg, Rasta 100mcg) Laryngoscope: Shivam (3.5) ET Tube Size: 8 ET Tube Uncuffed: No Tube Secured Depth (cm): 24 Tube Secured Location: lips Tube Placement Confirmation: visualized tube passing through cords, equal breath sounds bilaterally, confirmation by capnometry and color change noted Patient Tolerated Procedure: well Additional Comments: DLX1, grade 2, no trauma. Had to use some cricoid pressure/Selick's maneuver from second anesthesia provider to gain view. Initially passed a shortened 8.0 ETT, but ultimately too short so exchanged for unaltered 8.0 ETT over bougie. Patient tolerated very well.
[2023-06-08] MEDS: insulin lispro 100 unit/1 mL SUBCUT ×3 (08:09→17:33)
[2023-06-08 08:19] LABS: Glucose Point of Care 298 mg/dL (70-110)
[2023-06-08 08:41] LABS: ABG PCO2 37.3 mmHg (35-45); ABG PH Result 7.28 (7.35-7.45); Alveolar-Arterial Oxygen Gradi 76.2 mmHg (5-10); Arterial Blood Gas Hematocrit 23.4 % (42-52); Base Excess ABG -8.6 mmol/L (-2.0-2.0); Blood Gas Allen Test Pos; Blood Gas Operator Identificat CAK; Blood Gas Sample Site Radial, left; Blood Gas Sample Type Arterial; Carboxyhemoglobin 1.2 %THgb (0.4-20.1); HCO3 ABG 17.4 mmol/L (22-26); HGB O2 Sat 92.7 % (95-100); Ionized Calcium Level - ABG 1.2 mmol/L (1.1-1.4); Methemoglobin 1.2 % (0.4-1.5); Oxygen Device VENT; PO2 ABG 79.5 mmHg (80.0-100.0); Potassium Level - ABG 4.3 mmol/L (3.5-5.0); Total Hemoglobin 7.6 g/dL (14-18)
[2023-06-08] MEDS: tamsulosin 0.4 mg Capsule PO (09:18)
[2023-06-08] MEDS: piperacillin-tazobactam 3.375 GM in sodium chloride 0.9% (plus) 50 ML IV (09:18)
[2023-06-08] MEDS: clopidogrel 75 mg Tablet PO (09:18)
[2023-06-08] MEDS: methIMAzole 5 MG Tablet PO (09:18)
[2023-06-08] MEDS: guaiFENesin 600 mg Tablet PO ×2 (09:18→17:29)
[2023-06-08] MEDS: metoprolol tartrate 50 mg Tablet PO ×2 (09:18→17:33)
[2023-06-08] MEDS: terazosin 5 mg Capsule PO ×2 (09:19→17:34)
[2023-06-08] MEDS: sodium bicarbonate 650 mg Tablet 1300 MG PO ×2 (09:19→17:33)
[2023-06-08] MEDS: rocuronium 10 mg/mL INJ 5mL 50 MG (09:19)
--- NOTE | 2023-06-08 10:26 | PM.PN ---
Subjective Subjective: Intubated, sedated. Does not appear in discomfort. Vitals/I&O/Wt Last Vital Signs Temp 98.3 F 06/08/23 10:00 Pulse 95 06/08/23 10:00 Resp 14 06/08/23 10:00 BP 87/51 06/08/23 10:00 Pulse Ox 100 06/08/23 10:00 O2 Del Method Mechanical Ventilation 06/08/23 10:00 O2 Flow Rate 60 06/07/23 19:36 FiO2 80 06/08/23 10:00 06/07/23 06/08/23 06/08/23 22:59 06:59 14:59 Intake Total 987 / 1137 50 / 1187 Output Total 1396 / 1396 Balance -409 / -259 50 / -209 Weight last 48 hrs Weight 89.811 kg Weight 95.2 kg Weight 93.95 kg Weight 96.7 kg Physical Exam Const: GENERAL APPEARANCE: patient mechanically ventilated Neck/C-Spine: COMMON NORMALS: no JVD Resp: AUSCULTATION: breath sounds absent on the right and diminished lung sounds on the right (anterior, superior) Cardio: COMMON NORMALS: no JVD, regular rhythm, S1 normal heart sound present, S2 normal heart sound present and No murmurs present (Cardio) RHYTHM: regular rhythm HEART SOUNDS: S1 normal heart sound present and S2 normal heart sound present GI: COMMON NORMALS: Normal to inspection, nondistended, normoactive bowel sounds present, Soft to palpation and non-tender PALPATION: Yes Soft to palpation Extremity: COMMON NORMALS: no joint enlargement OTHER: LLE edema 2+ below the knee decreasing edema with wrinkling. No weeping. Mild erythema with edema and stasis below the left knee. RLE BKA Skin: OTHER: Diabetic L foot wounds Urinary Catheter Management: Reed: Cath Placed During This Visit: yes Reason for Continuing Indwelling Catheter: Accurate Measurement of Urinary Output in Critically Ill Patients Urinary Catheter Date of Insertion: 06/02/23 Urinary Catheter Time of Insertion: 20:45 Data 06/08/23 03:45 06/08/23 03:45 Micro: Microbiology 06/02/23 09:19 Blood Culture - Final Blood NO GROWTH AFTER 5 DAYS 06/02/23 09:09 Blood Culture - Final Blood NO GROWTH AFTER 5 DAYS A&P Assessment and plan (1) Respiratory failure: Worsening respiratory failure overnight after became nauseated, BiPAP mask reportedly removed, then started vomiting, subsequently not maintaining saturation, arrangements made for intubation performed by SENIOR ADMINISTRATIVE SUPPORT, with finding of anteriorly positioned airway. With noted white out of the right hemithorax, suspected mucous plugging following aspiration, pulmonary toilet have been initiated, yellowish sputum has been suctioned out, continues pulmonary toilet with also chest vest, hypertonic saline nebs. Discussed with RT. Continue ventilatory support. Reassess chest x-ray, in case not clearing and requiring transfer for bronchoscopic evaluation and management. May be at risk of additional developing ex-vacuo pleural effusion. Discussed with overnight hospitalist. Continue broadened antibiotic course with Zosyn. Noted more hypotensive, PICC line had been requested, up to 8 mcg Levophed, blood pressure soft previously, but currently likely secondary to sedation as well. Continue hemodialysis as tolerating, At continued risk of deterioration, intubation, mechanical ventilation. BiPAP support as needed. Resumed on prophylactic Lovenox. 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 (2) Congestive heart failure: Hemodialysis as above as tolerating. Somewhat difficult yesterday due to soft blood pressures, received albumin. In negative balance. Overall edema appears to be subsiding. Discussed with cardiology, considering further assessment, possibly with angiography depending on Saturday after placement of tunneled hemodialysis catheter on Saturday, discussed with surgery as well. Tunnel catheter deferred today due to soft blood pressure, subsequently hypotensive, and to allow for further optimize intravenous condition as he at current time does have access with temporary dialysis catheter. Fluid restriction. Reassess chemistry for renal function. (3) CKD (chronic kidney disease), stage V: With acute renal failure, dialysis catheter obtained, initiated dialysis. Will plan for continued hemodialysis after discharge. Confirmed with case management. (4) Aortic stenosis: (5) Diabetes: insulin sliding scale . Insulin was held this morning as he was n.p.o. yesterday and this morning. Subsequently resumed oral diet. Will resume insulin Lantus 25 units nightly. (6) Transaminitis: reassess CMP. Improving transaminitis. Reassess liver parameters. Noted negative hepatitis panel and RUQ us with unremarkable appearing liver. may jenniffer related to hepatic congestion Hold statin for now. Follow-up liver parameters. Plan Diabetic foot wounds: Continue wound care Aches and pains: Slightly better, but still some generalized body ache. Continue Dilaudid as needed. CK noted 44. Continue Tylenol, lidocaine patch. Add Dilaudid low-dose 0.2 mg, was giving him partial relief at every 4 hour interval for about 2 hours, increased to every 2 hours as needed after discussion of risks. Discussed with Discharge planning. Attestations Medical Necessity Statement*: Continue admission for assessment management of respiratory failure. Coding Level of Care Code Critical Care >/= 30 minutes Critical care time (in minutes): 40 The high probability of a clinically significant, sudden or life threatening deterioration, as referenced in this documentation, required my full and direct attention, intervention and personal management. The critical care time shown is in addition to time spent performing any reported separately billable procedures and includes the following: [x] Data and vital sign review and interpretation [x] Patient assessment, examination and intervention [x] Medication orders and management [x] Patient/Family updates as able [x] Care Coordination and Documentation. Diagnoses Respiratory failure J96.90 Congestive heart failure I50.9 CKD (chronic kidney disease), stage V N18.5 Aortic stenosis I35.0 Diabetes E11.9 Transaminitis R74.01
--- NOTE | 2023-06-08 10:26 | PC.NURSE ---
Consulted for placement of PICC on pt for vesicant therapy and will need at least 14 days of tx . Pt is intubated and sedated. Therefore, pts nurse (Logan) and I called the pts daughter to explain everything and obtained consent. Consent obtained. Assessed RUE and noted a 7mm basilic vein that is free of evidence of thrombus or stenosis. Using US guidance, MST, and sterile technique the RUE basilic vein was accessed x 1 stick. Device fed easily. Both ports aspirate and flush easily. Device secured and dressed. Chest xray ordered and pending on being done currently. EBL 5ml. Pt tolerated well. Report to Logan.
--- NOTE | 2023-06-08 11:12 | PM.PN ---
Subjective Subjective: intubated this Am possible aspiration Medications: Reviewed: Yes Vitals/I&O/Wt Last Vital Signs Temp 98.3 F 06/08/23 10:00 Pulse 95 06/08/23 10:00 Resp 14 06/08/23 10:00 BP 87/51 06/08/23 10:00 Pulse Ox 100 06/08/23 10:00 O2 Del Method Mechanical Ventilation 06/08/23 10:00 O2 Flow Rate 60 06/07/23 19:36 FiO2 80 06/08/23 10:00 06/07/23 06/08/23 06/08/23 22:59 06:59 14:59 Intake Total 987 / 1137 50 / 1187 Output Total 1396 / 1396 Balance -409 / -259 50 / -209 Weight last 48 hrs Weight 89.811 kg Weight 95.2 kg Weight 93.95 kg Weight 96.7 kg Physical Exam Narrative: intubated S1S2 RRR Lungs clear hira + edema Urinary Catheter Management: Reed: Cath Placed During This Visit: yes Reason for Continuing Indwelling Catheter: Accurate Measurement of Urinary Output in Critically Ill Patients Urinary Catheter Date of Insertion: 06/02/23 Urinary Catheter Time of Insertion: 20:45 Data 06/08/23 03:45 06/08/23 03:45 Micro: Microbiology 06/02/23 09:19 Blood Culture - Final Blood NO GROWTH AFTER 5 DAYS 06/02/23 09:09 Blood Culture - Final Blood NO GROWTH AFTER 5 DAYS A&P Assessment and plan (1) CKD (chronic kidney disease), stage V: Plan 1. CKD stage IV/V with volume overload, recurrent admissions for same. Patient would benefit from initiation of dialysis for volume management in the setting of CHF and advanced CKD. -Patient agrees for HD initiation, s/p temp catheter and HD done yesterday , plan for tunneled catheter placement for long-term HD--> Inititated HD , HD # 3 today -We will check UPCR, likely have nephrotic proteinuria. -Avoid nephrotoxins and IV contrast studies. 2. Acute on chronic resp failure : Currently on BiPAP, multifactorial secondary to volume overload and possible pneumonitis/Aspiration 3. Anemia: We will order Procrit, likely from advanced CKD, also check iron studies 4. MBD: Check phosphorus vitamin D and PTH levels 5. History of diabetic foot wounds 6. Diabetes 7. History of hypertension Patient evaluated using audiovisual cart. Time spent 20 minutes Attestations Medical Necessity Statement*: per medicine Coding Level of Care Code Acute Code for g Fwd Diagnoses CKD (chronic kidney disease), stage V N18.5
--- NOTE | 2023-06-08 12:14 | PC.NURSE ---
After first placement x-ray was done it demonstrated the catheter going up the neck vein. Pt was prepped and drapped in sterile fashion using CHG and sterile brachial drape and sterile sheet. Repositioned device and requested follow up chest x-ray. Again the x-ray demonstrated that the device was going up the neck vein. Pt was prepped and drapped in sterile fashion using CHG and sterile brachial drape and sterile sheet. Chest xray done and demonstrated tip in RV and device was retracted and image reobtained. This time it appears tip is near CAJ. Awaiting intepretation from physician. Noted the device has 5cm of catheter exposed beyond the zero arpit now. Device secured and dressed. Additional EBL was 10 ml. Pt tolerated well. Report to Logan.
[2023-06-08] MEDS: pantoprazole 40 mg SDV IVP (12:15)
[2023-06-08 12:20] LABS: Glucose Point of Care 241 mg/dL (70-110)
[2023-06-08] MEDS: propofol 1,000 MG/100 ML INJ 17.14 MG IV ×2 (12:26→19:02)
[2023-06-08] MEDS: sodium chloride 3.5% neb 4 mL Neb INHALATION (13:34)
--- NOTE | 2023-06-08 15:37 | PM.PN ---
Subjective Subjective: Patient was intubated this morning. He is currently undergoing dialysis. He is on levophed @ 6. Medications: Reviewed: Yes Vitals/I&O/Wt Last Vital Signs Temp 98.3 F 06/08/23 10:00 Pulse 86 06/08/23 15:13 Resp 14 06/08/23 15:11 BP 87/51 06/08/23 10:00 Pulse Ox 95 06/08/23 15:11 O2 Del Method Mechanical Ventilation 06/08/23 15:00 O2 Flow Rate 60 06/07/23 19:36 FiO2 40 06/08/23 15:11 06/08/23 06/08/23 06/08/23 06:59 14:59 22:59 Intake Total 50 / 1187 183.729 / 183.729 Balance 50 / -209 183.729 / 183.729 Weight last 48 hrs Weight 198 lb Weight 209 lb 14.081 oz Weight 207 lb 2 oz Weight 213 lb 2.992 oz Physical Exam Narrative: GENERAL: Averagely built and averagely nourished in no acute distress HEENT: + pallor, no icterus. NECK: central trachea, No JVD. No carotid bruit. CARDIOVASCULAR SYSTEM: S1-S2 regular. No murmur rubs or gallops RESPIRATORY SYSTEM: Chest clear to auscultation. No wheezes rhonchi or rubs heard. ABDOMEN: Soft, nontender and nondistended. Normal bowel sounds present. EXTREMITIES: No cyanosis. 1+ edema. R BKA STRATEGIC MARKETING MANAGER: intubated and sedated Urinary Catheter Management: Reed: Cath Placed During This Visit: yes Reason for Continuing Indwelling Catheter: Accurate Measurement of Urinary Output in Critically Ill Patients Urinary Catheter Date of Insertion: 06/02/23 Urinary Catheter Time of Insertion: 20:45 Data 06/08/23 03:45 06/08/23 03:45 A&P Assessment and plan (1) Respiratory failure: currently intubated and sedated (on propofol and fentanyl) (2) Congestive heart failure: HFmrEF (3) NSTEMI (non-ST elevated myocardial infarction): (4) CKD (chronic kidney disease), stage V: (5) Peripheral arterial disease: (6) Diabetes: Plan Anemia Continue medical therapy. Patient is now on dialysis. Once respiratory status improves over the next few days, will consider coronary angiogram if patient agrees. Thank you for involving us with care of this patient. We will continue to follow. Please call with questions Attestations Medical Necessity Statement*: remains ill Coding Level of Care Code 40149 Diagnoses Respiratory failure J96.90 Congestive heart failure I50.9 NSTEMI (non-ST elevated myocardial infarction) I21.4 CKD (chronic kidney disease), stage V N18.5 Peripheral arterial disease I73.9 Diabetes E11.9
--- NOTE | 2023-06-08 16:23 | PC.NURSE ---
Received bed placement at [facility], [id number]. Report called to Adryan [phone]. Accepted by Dr Lauren De Oliveira. Friend Leah Pino took patient belongings before transfer (Proshtetic leg, Foot sleeve, shoe, phone, dentures, watch, and glasses).
--- NOTE | 2023-06-08 16:27 | PM.TDS ---
Transfer Summary Providers Date of Admission: 06/02/23 12:39 Date of Discharge/Transfer: 06/08/23 Attending Provider at Admission: Anisa Chiu MD Attending Provider at Transfer: Vazquez Ulloa Primary Care Provider: César Gallegos DO Transfer Plans: Anticipated date of transfer: 06/08/23. Diagnoses at Discharge Discharge Diagnosis (1) Respiratory failure: Status: Acute (2) Congestive heart failure: Status: Acute (3) NSTEMI (non-ST elevated myocardial infarction): Status: Acute (4) CKD (chronic kidney disease), stage V: Status: Acute (5) Peripheral arterial disease: Status: Acute (6) Diabetes: Status: Acute Reason for Visit Reason for Visit SOB Hospital Course Hospital Course Pleasant 58-year-old gentleman with history of stage IV chronic kidney disease, history of CHF with recent hospitalization with decompensated CHF, NSTEMI, pneumonia, chronic left lower extremity diabetic wounds, also history of hypertension, diabetes, Graves' disease, previously discharged 05/09 was admitted on 06/02 after presenting back to the hospital with shortness of breath, on presentation with decompensated congestive heart failure, started on IV diuretics with Bumex, empirically also started initially on ceftriaxone and azithromycin with consideration of possible pneumonia with infiltrates on chest x-ray, and respiratory failure requiring 5 L nasal cannula oxygen, and presentation with transaminitis, suspected secondary to congestive heart failure, negative hepatitis panel, unremarkable appearing liver on ultrasound, statin was held (since improving). Assessed by cardiology due to on presentation elevated troponin [id number], with consideration of possible recent NSTEMI. Echocardiogram obtained, technically very difficult study. Grossly LV systolic function mildly reduced. Aortic valve thickened and calcified, aortic stenosis could not be assessed. IVC dilated. Subsequently with worsening renal function, poor response to diuretics with inadequate diuresis, continued respiratory failure, worsening renal function with increasing diuretics, subsequently additionally episode of aspiration and aspiration pneumonitis, pneumonia after choking up on some eggs, requiring heated high flow, intermittent BiPAP support. With aspiration pneumonitis, wheezing, subsequently also spiked a fever, aspiration pneumonia, recent MRSA PCR negative, antibiotic broadened to Zosyn. With worsening renal function, inadequate urine output, respiratory failure, CHF, temporary dialysis catheter was placed, started on hemodialysis. Plans for additional evaluation with coronary angiogram during this hospitalization. Started on dysphagia diet and speech therapy assessment when transition to heated high flow cannula. Overnight 06/07- nauseated while on BiPAP, BiPAP mask removed, vomited, subsequently unable to maintain saturations on heated high flow and nonrebreather, intubated by anesthesia (due to history of narrow airway .) Chest x-ray with complete opacification of right hemithorax. Started with pulmonary toilet, suctioning, chest vest, hypertonic nebs. Suctioning of secretions. Improvement in FiO2 initially requiring 100%, gradually down to 40%. Blood pressure mildly soft previously, with pressor requirement up to 10 mcg/min Levophed with sedation. CT chest was obtained with right greater than left lung dependent consolidations with heterogenous hypoattenuation and groundglass opacification. Hyperdensity within the consolidations may represent aspirated contents or other etiology such as pulm alveolar microlithiasis or metastatic pulmonary calcification. Large right and moderate left pleural effusions. Small pericardial effusion. Atherosclerosis with heavy calcification. Mild ascites. ETT terminating 1 cm above juan [place]go, RT going to adjust. With multiple comorbidities, difficult course of illness otherwise, unable to arrange bronchoscopy until Saturday or later, or thoracentesis for possible parapneumonic effusion, discussed limitations with his family, friend Leah and daughter Yumiko, including risk of transfer both agreeable for additional assessment and management at [facility] where he is currently accepted on discussion with the machine shop helper there. Other than plans for additional cardiac assessment with coronary angiogram, plans have been for placement of tunneled hemodialysis catheter as he is anticipated to require continued hemodialysis given recurrent CHF, poor urine output with stage IV kidney disease. This afternoon additionally developed narrow complex tachycardia up into 180s, irregular - new atrial fibrillation possibly after suctioning and during hemodialysis, with worsened hypotension, dialysis cut short, converted to sinus rhythm with single shock DC cardioversion. With concerns for recurrent atrial fibrillation with his acute illness, aspiration, severe aspiration pneumonia, respiratory failure, possible recent NSTEMI, other comorbidities started on amiodarone drip. Started also on heparin drip. And was seen by cardiology. Physical Exam Const: GENERAL APPEARANCE: patient mechanically ventilated Resp: AUSCULTATION: breath sounds absent on the right and diminished lung sounds on the right (anterior, superior) Cardio: COMMON NORMALS: regular rhythm, S1 normal heart sound present, S2 normal heart sound present and No murmurs present (Cardio) RHYTHM: regular rhythm HEART SOUNDS: S1 normal heart sound present and S2 normal heart sound present GI: COMMON NORMALS: Normal to inspection, nondistended, normoactive bowel sounds present, Soft to palpation and non-tender PALPATION: Yes Soft to palpation Extremity: COMMON NORMALS: no joint enlargement OTHER: LLE edema 2+ below the knee decreasing edema with wrinkling. No weeping. Mild erythema with edema and stasis below the left knee. RLE BKA Neuro: COMMON NORMALS: moves all extremities Skin: OTHER: Diabetic L foot wounds Urinary Catheter Management: Reed: Cath Placed During This Visit: yes Reason for Continuing Indwelling Catheter: Accurate Measurement of Urinary Output in Critically Ill Patients Urinary Catheter Date of Insertion: 06/02/23 Urinary Catheter Time of Insertion: 20:45 TS Data Studies Completed and Pending Pending at discharge Category Date Time Status Complete Blood Count w/Auto AM LABS Lab 06/09/23 04:00 Ordered Complete Blood Count w/Auto AM LABS Lab 06/10/23 04:00 Ordered Comprehensive Metabolic Panel AM LABS Lab 06/09/23 04:00 Ordered Comprehensive Metabolic Panel AM LABS Lab 06/10/23 04:00 Ordered Sputum Culture and Gram Stain Stat Lab 06/08/23 07:20 Received Labs from last 24 hours 06/08/23 06/08/23 06/08/23 12:16 08:30 08:01 WBC RBC Hgb Hct MCV MCH MCHC RDW Plt Count MPV Neut % (Auto) Lymph % (Auto) Bland % (Auto) Eos % (Auto) Baso % (Auto) Neut # (Auto) Lymph # (Auto) Bland # (Auto) Eos # (Auto) Baso # (Auto) Nucleated RBC % (auto) Nucleated RBCs # Specimen Type Arterial Sample Site Radial, left ABG pH 7.28 L ABG pCO2 37.3 ABG pO2 79.5 L ABG HCO3 17.4 L ABG O2 Saturation 95.0 ABG Base Excess -8.6 L Prashant Test Pos A-a O2 Gradient 76.2 H Hematocrit 23.4 L Hgb O2 Saturation 92.7 L Carboxyhemoglobin 1.2 Methemoglobin 1.2 Total Hemoglobin 7.6 L Ionized Calcium 1.2 O2 Delivery Device Vent FiO2 100.0 Tidal Volume 0.50 PEEP 10.0 Courier Delivery Driver ID Cak Sodium 136.0 Potassium 4.3 Chloride Carbon Dioxide Anion Gap BUN Creatinine GFR Calculation Glucose 275.0 H POC Glucose 241 H 298 H Calculated Osmolality Calcium Total Bilirubin AST ALT Alkaline Phosphatase Total Protein Albumin Globulin 06/08/23 06/08/23 06/07/23 03:45 03:45 20:23 WBC 10.9 H RBC 2.53 L Hgb 7.5 L Hct 25.7 L MCV 101.6 H MCH 29.6 MCHC 29.2 L RDW 16.0 H Plt Count 312 MPV 9.7 Neut % (Auto) 83.7 Lymph % (Auto) 7.5 Bland % (Auto) 7.5 Eos % (Auto) 0.5 Baso % (Auto) 0.3 Neut # (Auto) 9.11 H Lymph # (Auto) 0.8 Bland # (Auto) 0.8 Eos # (Auto) 0.1 Baso # (Auto) 0.0 Nucleated RBC % (auto) 0 Nucleated RBCs # 0.0 Specimen Type Sample Site ABG pH ABG pCO2 ABG pO2 ABG HCO3 ABG O2 Saturation ABG Base Excess Prashant Test A-a O2 Gradient Hematocrit Hgb O2 Saturation Carboxyhemoglobin Methemoglobin Total Hemoglobin Ionized Calcium O2 Delivery Device FiO2 Tidal Volume PEEP Courier Delivery Driver ID Sodium 137 Potassium 4.6 Chloride 94 L Carbon Dioxide 22 Anion Gap 25.6 H BUN 50 H Creatinine 4.3 H GFR Calculation 14.4 L Glucose 199 H POC Glucose 216 H Calculated Osmolality 303 H Calcium 9.2 Total Bilirubin 0.4 AST 7 ALT 13 Alkaline Phosphatase 113 Total Protein 6.4 L Albumin 3.9 Globulin 2.5 06/07/23 16:59 WBC RBC Hgb Hct MCV MCH MCHC RDW Plt Count MPV Neut % (Auto) Lymph % (Auto) Bland % (Auto) Eos % (Auto) Baso % (Auto) Neut # (Auto) Lymph # (Auto) Bland # (Auto) Eos # (Auto) Baso # (Auto) Nucleated RBC % (auto) Nucleated RBCs # Specimen Type Sample Site ABG pH ABG pCO2 ABG pO2 ABG HCO3 ABG O2 Saturation ABG Base Excess Prashant Test A-a O2 Gradient Hematocrit Hgb O2 Saturation Carboxyhemoglobin Methemoglobin Total Hemoglobin Ionized Calcium O2 Delivery Device FiO2 Tidal Volume PEEP Courier Delivery Driver ID Sodium Potassium Chloride Carbon Dioxide Anion Gap BUN Creatinine GFR Calculation Glucose POC Glucose 144 H Calculated Osmolality Calcium Total Bilirubin AST ALT Alkaline Phosphatase Total Protein Albumin Globulin Completed Studies During Hospitalization Category Date Time Status CT chest wo con [id number] Routine Cat Scan 06/08/23 07:47 Completed XR chest 1V portable [id number] Routine Exams 06/05/23 06:00 Completed XR chest 1V portable [id number] Stat Exams 06/02/23 08:36 Completed XR chest 1V portable [id number] Stat Exams 06/08/23 07:55 Completed XR chest 1V portable [id number] Urgent Exams 06/08/23 07:27 [place] [id number] Routine Ultrasound 06/04/23 18:05 Completed CV. echo limited [id number] Routine Ultrasound 06/06/23 00:00 Completed US liver [id number] Routine Ultrasound 06/02/23 15:51 Completed Laboratory Last Values WBC 10.9 10^3/uL (4.0-10.0) H 06/08/23 03:45 RBC 2.53 10^6/uL (4.1-5.3) L 06/08/23 03:45 Hgb 7.5 g/dL (11.7-16.6) L 06/08/23 03:45 Hct 25.7 % (42.0-52.0) L 06/08/23 03:45 MCV 101.6 fl (80-94) H 06/08/23 03:45 MCH 29.6 pg (28.0-34.0) 06/08/23 03:45 MCHC 29.2 g/dL (30.0-36.0) L 06/08/23 03:45 RDW 16.0 % (12.1-15.1) H 06/08/23 03:45 Plt Count 312 10^3/cmm (130-400) 06/08/23 03:45 MPV 9.7 fL (7.4-10.4) 06/08/23 03:45 Neut % (Auto) 83.7 % 06/08/23 03:45 Lymph % (Auto) 7.5 % 06/08/23 03:45 Bland % (Auto) 7.5 % 06/08/23 03:45 Eos % (Auto) 0.5 % 06/08/23 03:45 Baso % (Auto) 0.3 % 06/08/23 03:45 Neut # (Auto) 9.11 10^3/uL (1.8-7.7) H 06/08/23 03:45 Lymph # (Auto) 0.8 10^3/uL (0.8-4.8) 06/08/23 03:45 Bland # (Auto) 0.8 10^3/uL (0.2-0.9) 06/08/23 03:45 Eos # (Auto) 0.1 10^3/uL (0.0-0.8) 06/08/23 03:45 Baso # (Auto) 0.0 10^3/uL (0.0-0.1) 06/08/23 03:45 Nucleated RBC % (auto) 0 % 06/08/23 03:45 Nucleated RBCs # 0.0 /100WBC 06/08/23 03:45 Specimen Type Arterial 06/08/23 08:30 Sample Site Radial, left 06/08/23 08:30 ABG pH 7.28 (7.35-7.45) L 06/08/23 08:30 ABG pCO2 37.3 mmHg (35-45) 06/08/23 08:30 ABG pO2 79.5 mmHg (80.0-100.0) L 06/08/23 08:30 ABG HCO3 17.4 mmol/L (22-26) L 06/08/23 08:30 ABG O2 Saturation 95.0 06/08/23 08:30 ABG Base Excess -8.6 mmol/L (-2.0-2.0) L 06/08/23 08:30 Prashant Test Pos 06/08/23 08:30 A-a O2 Gradient 76.2 mmHg (5-10) H 06/08/23 08:30 Hematocrit 23.4 % (42-52) L 06/08/23 08:30 Hgb O2 Saturation 92.7 % (95-100) L 06/08/23 08:30 Carboxyhemoglobin 1.2 %THgb (0.4-20.1) 06/08/23 08:30 Methemoglobin 1.2 % (0.4-1.5) 06/08/23 08:30 Total Hemoglobin 7.6 g/dL (14-18) L 06/08/23 08:30 Sodium 136.0 mmol/L (131-143) 06/08/23 08:30 Potassium 4.3 mmol/L (3.5-5.0) 06/08/23 08:30 Glucose 275.0 mg/dL (70-115) H 06/08/23 08:30 Ionized Calcium 1.2 mmol/L (1.1-1.4) 06/08/23 08:30 O2 Delivery Device Vent 06/08/23 08:30 FiO2 100.0 % 06/08/23 08:30 Tidal Volume 0.50 06/08/23 08:30 PEEP 10.0 cmH20 06/08/23 08:30 Courier Delivery Driver ID Cak 06/08/23 08:30 Sodium 137 mmol/L (136-145) 06/08/23 03:45 Potassium 4.6 mmol/L (3.5-5.1) 06/08/23 03:45 Chloride 94 mmol/L (98-107) L 06/08/23 03:45 Carbon Dioxide 22 mmol/L (22-29) 06/08/23 03:45 Anion Gap 25.6 (5-19) H 06/08/23 03:45 BUN 50 mg/dL (6-20) H 06/08/23 03:45 Creatinine 4.3 mg/dL (0.7-1.2) H 06/08/23 03:45 GFR Calculation 14.4 mL/min (90-130) L 06/08/23 03:45 Glucose 199 mg/dL (65-115) H 06/08/23 03:45 POC Glucose 241 mg/dL (70-110) H 06/08/23 12:16 Calculated Osmolality 303 mOsm/kg (285-295) H 06/08/23 03:45 Lactic Acid 1.5 mmol/L (0.5-2.2) 06/02/23 09:09 Calcium 9.2 mg/dL (8.5-10.5) 06/08/23 03:45 Phosphorus 8.1 mg/dL (2.5-4.5) H* 06/06/23 04:37 Magnesium 2.2 mg/dL (1.7-2.3) 06/04/23 05:43 Total Bilirubin 0.4 mg/dL (0.15-1.2) 06/08/23 03:45 AST 7 U/L (0-40) 06/08/23 03:45 ALT 13 U/L (0-41) 06/08/23 03:45 Alkaline Phosphatase 113 U/L (40-130) 06/08/23 03:45 Creatine Kinase 44 U/L (39-308) 06/05/23 13:40 Troponin T Baseline 1693 ng/L (0-15) H* 06/05/23 13:40 Troponin T 120 Minute 1712 ng/L (0-15) H 06/05/23 15:44 Delta Troponin T 19 ABS# (0-10) H* 06/05/23 15:44 Troponin T Hi Sens 6Hr 1919 ng/L (0-15) H 06/05/23 19:50 Troponin T Hi Sens 6Hr Delta 226 ng/L (0-12) H* 06/05/23 19:50 Total Protein 6.4 g/dL (6.6-8.7) L 06/08/23 03:45 Albumin 3.9 g/dL (3.5-5.2) 06/08/23 03:45 Globulin 2.5 g/dL (1.3-4.6) 06/08/23 03:45 PTH Intact 116.6 pg/mL (15-65) H 06/06/23 04:37 Calcium (PTH Intact) 8.9 mg/dL (8.5-10.5) 06/06/23 04:37 Coronavirus 229E (PCR) Not detected (NOT DETECT) 06/02/23 11:21 Hepatitis A IgM Ab Non-reactive (Nonreactive) 06/02/23 17:37 Hep Bs Antigen Non-reactive (Nonreactive) 06/02/23 17:37 Hep Bs Antibody 3.5 (11.5-1000) L 06/06/23 19:04 Hep B Core Total Ab Non-reactive (Nonreactive) 06/02/23 17:37 Hepatitis C Antibody Non-reactive (Nonreactive) 06/02/23 17:37 SARS-CoV-2 (PCR) Not detected (NOT DETECT) 06/02/23 11:21 Radiology Impressions Liver Ultrasound 06/02/23 15:51 IMPRESSION: Diminutive, echogenic right kidney, suggesting medical renal disease. Chest CT 06/08/23 07:47 IMPRESSION: 1. Endotracheal tube terminates 1 cm above the juan [place] toward the right main bronchus. Consider 1-2 cm retraction. 2. Additional support structures as above. 3. Large right and moderate left pleural effusions. 4. Goqyn-[id number]-left lung dependent consolidations with heterogeneous hyperattenuation and ground-glass opacification. Differential considerations include aspiration, atelectasis, possibly infectious. The hyperdensity within the consolidations may represent aspirated contents or other etiology such as pulmonary alveolar microlithiasis or metastatic pulmonary calcification, particularly given atrophic kidneys. 5. Small pericardial effusion. 6. Atherosclerosis with heavy coronary artery calcification. 7. Mild ascites and fat stranding of the imaged upper abdomen. CT of the abdomen and pelvis could be considered to further evaluate. 8. Additional chronic and incidental findings as above. Chest X-Ray 06/08/23 07:55 IMPRESSION: 1. Support structures as above. 2. Stable complete opacification of the right hemithorax. 3. Small left pleural effusion. Recent Clincial Data Last Vital Signs Temp 98.3 F 06/08/23 10:00 Pulse 86 06/08/23 15:13 Resp 14 06/08/23 15:11 BP 87/51 06/08/23 10:00 Pulse Ox 95 06/08/23 15:11 O2 Del Method Mechanical Ventilation 06/08/23 15:00 O2 Flow Rate 60 06/07/23 19:36 FiO2 40 06/08/23 15:11 Vital Signs Temp Pulse Resp BP Pulse Ox O2 Del Method FiO2 06/08/23 15:13 86 06/08/23 15:11 14 95 40 06/08/23 15:00 87 14 95 Mechanical Ventilation 40 06/08/23 13:37 14 98 40 06/08/23 11:25 14 99 60 06/08/23 11:24 87 14 100 Mechanical Ventilation 60 06/08/23 10:00 98.3 F 95 14 87/51 100 Mechanical Ventilation 80 06/08/23 09:45 119 H 121/49 100 06/08/23 09:30 100 121/41 99 06/08/23 09:15 149 H 129/48 100 06/08/23 09:00 101 H 110/48 100 06/08/23 08:45 98 120/74 99 06/08/23 08:30 98 114/60 97 06/08/23 08:15 96 115/56 97 06/08/23 08:00 92 109/42 95 06/08/23 07:45 92 104/57 95 06/08/23 07:30 93 118/55 91 06/08/23 07:15 106 H 122/66 91 06/08/23 07:00 104 H 112/56 87 L 06/08/23 06:45 105 H 117/60 92 06/08/23 06:30 106 H 105/65 98 06/08/23 06:15 108 H 110/61 99 06/08/23 06:00 109 H 112/57 82 L 06/08/23 05:45 107 H 109/56 95 06/08/23 05:30 112 H 96/66 79 L 06/08/23 05:15 103 H 116/52 100 06/08/23 05:00 105 H 108/55 100 06/08/23 04:45 104 H 113/48 100 06/08/23 04:30 104 H 111/52 100 06/08/23 08:00 80 06/08/23 09:37 14 99 80 06/08/23 08:01 93 16 95 Mechanical Ventilation 100 06/08/23 07:36 16 94 100 Intake & Output/Weight 06/06/23 06/07/23 06/08/23 06/09/23 06:59 06:59 06:59 06:59 Intake Total 550 / 550 1100 / 1100 1187 / 1187 183.729 / 183.729 Output Total 1000 / 1000 1987 / 1987 1396 / 1396 Balance -450 / -450 -888 / -888 -209 / -209 183.729 / 183.729 Weight 95.878 kg 93.95 kg 89.811 kg Vitals Last Vital Signs Temp 98.3 F 06/08/23 10:00 Pulse 86 06/08/23 15:13 Resp 14 06/08/23 15:11 BP 87/51 06/08/23 10:00 Pulse Ox 95 06/08/23 15:11 O2 Del Method Mechanical Ventilation 06/08/23 15:00 O2 Flow Rate 60 06/07/23 19:36 FiO2 40 06/08/23 15:11 TS Medications Medications Acetaminophen (Acetaminophen 325 Mg Tablet) 650 mg PO QID PRN PRN Reason: Pain Last Admin: 06/07/23 22:03 Dose: 650 mg Acetaminophen (Acetaminophen 500 Mg Tablet) 1,000 mg PO BEDTIME KIM Last Admin: 06/07/23 20:31 Dose: Not Given Albuterol/Ipratropium (Ipratropium-Albuterol 3 Ml Neb) 3 ml INHALATION Q4H.RESPIRATORY KIM Last Admin: 06/08/23 15:06 Dose: 3 ml Albuterol/Ipratropium (Ipratropium-Albuterol 3 Ml Neb) 3 ml INHALATION Q6H PRN PRN Reason: SHORTNESS OF BREATH Allopurinol (Allopurinol 300 Mg Tablet) 300 mg PO QAM [facility] Last Admin: 06/08/23 05:13 Dose: 300 mg Amlodipine Besylate (Amlodipine 10 Mg Tablet) 10 mg PO QAM [facility] Last Admin: 06/08/23 05:30 Dose: Not Given Aspirin (Aspirin 81 Mg Ec Tablet) 81 mg PO BEDTIME [facility] Last Admin: 06/07/23 20:31 Dose: Not Given Atorvastatin Calcium (Atorvastatin 40 Mg Tablet) 80 mg PO BEDTIME [facility] Last Admin: 06/02/23 20:03 Dose: Not Given Benzonatate (Benzonatate 100 Mg Capsule) 100 mg PO TID PRN PRN Reason: COUGH Bisacodyl (Bisacodyl 10 Mg Supp) 10 mg NV DAILY PRN PRN Reason: Constipation Budesonide (Budesonide 0.5 Mg/2 Ml Neb) 0.5 mg INHALATION BID.RESPIRATORY [facility] Last Admin: 06/08/23 08:01 Dose: 0.5 mg Clopidogrel Bisulfate (Clopidogrel 75 Mg Tablet) 75 mg PO DAILY [facility] Last Admin: 06/08/23 09:18 Dose: 75 mg Cyclobenzaprine HCl (Cyclobenzaprine 10 Mg Tablet) 10 mg PO TID PRN PRN Reason: MUSCLE SPASMS Last Admin: 06/07/23 22:03 Dose: 10 mg Denture Adhesive (Fixodent 39 Gm Tube) 1 applic DENTAL PRN PRN PRN Reason: denture adhesive Dextrose (Dextrose 50% Syringe 50 Ml) 50 ml IVP PRN PRN; Protocol PRN Reason: hypoglycemia protocol Dextrose (Dextrose 50% Syringe 50 Ml) 25 ml IVP ONCE PRN; Protocol PRN Reason: hypoglycemia protocol Enoxaparin Sodium (Enoxaparin 30 Mg/0.3 Ml Syringe) 30 mg SUBCUT Q24H [facility] Last Admin: 06/08/23 02:06 Dose: 30 mg Glucagon (Glucagon 1 Mg/Ml Inj 1 Ml) 1 mg IM ONCE PRN; Protocol PRN Reason: Adult Acute Hypoglycemia Prot. Guaifenesin (Guaifenesin 600 Mg Tablet) 600 mg PO BID KIM Last Admin: 06/08/23 09:18 Dose: 600 mg Hydromorphone HCl (Hydromorphone 1 Mg/Ml Inj 1 Ml) 0.2 mg IVP Q2H PRN PRN Reason: SEVERE PAIN Last Admin: 06/08/23 05:13 Dose: 0.2 mg Dextrose (D5w) 500 mls @ 100 mls/hr IV ONCE PRN; Protocol PRN Reason: Adult Acute Hypoglycemia Prot Norepinephrine Bitartrate 4 mg (/ Dextrose) 254 mls @ 0 mls/hr IV .Q0M KIM; Protocol Last Titration: 06/08/23 08:15 Dose: 6 mcg/min, 22.86 mls/hr Albumin Human (Albumin) 12.5 gm in 50 mls @ 60 mls/hr IV PRN PRN PRN Reason: Hypotension and/or symptomatic Last Infusion: 06/07/23 17:04 Dose: Infused Sodium Chloride (Sodium Chloride 0.9%) 1,000 mls @ 0 mls/hr IV .Q0M PRN PRN Reason: hypotension or symptomatic Sodium Chloride (Sodium Chloride 0.9%) 1,000 mls @ 0 mls/hr IV .Q0M PRN PRN Reason: hypotension or symptomatic Piperacillin Sod/Tazobactam (Sod 3.375 gm/ Sodium Chloride) 50 mls @ 12.5 mls/hr IV Q12H KIM; Protocol Last Admin: 06/08/23 09:18 Dose: 12.5 mls/hr Propofol (Diprivan) 1,000 mg in 100 mls @ 0 mls/hr IV .Q0M KIM; Protocol Last Admin: 06/08/23 12:26 Dose: 30 mcg/kg/min, 17.14 mls/hr Fentanyl 1,000 mcg/ Sodium (Chloride) 100 mls @ 0 mls/hr IV .Q0M KIM; Protocol Last Titration: 06/08/23 09:45 Dose: 50 mcg/hr, 5 mls/hr Albumin Human (Albumin) 12.5 gm in 50 mls @ 60 mls/hr IV PRN PRN PRN Reason: Hypotension and/or symptomatic Sodium Chloride (Sodium Chloride 0.9%) 1,000 mls @ 0 mls/hr IV .Q0M PRN PRN Reason: hypotension or symptomatic Insulin Glargine (Insulin Glargine 100 Units/1 Ml) 28 unit SUBCUT BEDTIME [facility] Insulin Human Lispro (Insulin Lispro 100 Unit/1 Ml) 0 unit SUBCUT WM&BEDTIME [facility]; Protocol Last Admin: 06/08/23 12:19 Dose: 10 unit Lanolin (Lanolin Oint 7 Gm) 1 applic TOPICAL PRN PRN PRN Reason: DRYNESS Last Admin: 06/04/23 12:09 Dose: 1 applic Lidocaine (Lidocaine 5% Patch) 1 patch TOPICAL [id number] [facility] Last Admin: 06/08/23 11:33 Dose: Not Given Methimazole (Methimazole 5 Mg Tablet) 5 mg PO DAILY [facility] Last Admin: 06/08/23 09:18 Dose: 5 mg Metolazone (Metolazone 5 Mg Tablet) 5 mg PO Q24H [facility] Last Admin: 06/07/23 14:55 Dose: 5 mg Metoprolol Tartrate (Metoprolol Tartrate 50 Mg Tablet) 50 mg PO BID [facility] Last Admin: 06/08/23 09:18 Dose: 50 mg Ondansetron HCl (Ondansetron 2 Mg/Ml Sdv 2 Ml) 4 mg IVP Q8H PRN PRN Reason: vomiting, or N/V if npo Last Admin: 06/08/23 05:28 Dose: 4 mg Pantoprazole Sodium (Pantoprazole 40 Mg Sdv) 40 mg IVP DAILY [facility] Last Admin: 06/08/23 12:15 Dose: 40 mg Sodium Bicarbonate (Sodium Bicarbonate 650 Mg Tablet) 1,300 mg PO BID [facility] Last Admin: 06/08/23 09:19 Dose: 1,300 mg Sodium Chloride (Sodium Chloride 3.5% Neb 4 Ml Neb) 4 ml INHALATION Q6H.RESP [facility] Last Admin: 06/08/23 13:34 Dose: 4 ml Tamsulosin HCl (Tamsulosin 0.4 Mg Capsule) 0.4 mg PO DAILY [facility] Last Admin: 06/08/23 09:18 Dose: 0.4 mg Terazosin HCl (Terazosin 5 Mg Capsule) 5 mg PO BID [facility] Last Admin: 06/08/23 09:19 Dose: 5 mg Discontinued Medications Albuterol/Ipratropium (Ipratropium-Albuterol 3 Ml Neb) 3 ml INHALATION Q6H KIM Albuterol/Ipratropium (Ipratropium-Albuterol 3 Ml Neb) 3 ml INHALATION Q6H.RESP [facility] Last Admin: 06/05/23 07:28 Dose: 3 ml Bumetanide (Bumetanide 0.25 Mg/Ml Sdv 4 Ml) 1 mg IVP Q12H [facility] Last Admin: 06/03/23 03:34 Dose: 1 mg Bumetanide (Bumetanide 0.25 Mg/Ml Sdv 4 Ml) 1 mg IVP ONCE ONE Stop: 06/03/23 08:49 Last Admin: 06/03/23 09:01 Dose: 1 mg Bumetanide (Bumetanide 0.25 Mg/Ml Sdv 10 Ml) 2 mg IVP Q12H KIM Bumetanide (Bumetanide 0.25 Mg/Ml Sdv 10 Ml) 3 mg IVP Q12H [facility] Last Admin: 06/04/23 03:56 Dose: 3 mg Cyclobenzaprine HCl (Cyclobenzaprine 10 Mg Tablet) 10 mg PO BEDTIME PRN PRN Reason: Muscle Spasm Last Admin: 06/04/23 00:11 Dose: 10 mg Enoxaparin Sodium (Enoxaparin 100 Mg/Ml Syringe) 95 mg SUBCUT Q24H [facility] Last Admin: 06/05/23 17:38 Dose: 95 mg Enoxaparin Sodium (Enoxaparin 40 Mg/0.4 Ml Syringe) 40 mg SUBCUT Q24H [facility] Last Admin: 06/07/23 10:52 Dose: Not Given Epoetin Yuniel (Epoetin Yuniel 1000 Unit/0.05 Ml (Esrd)) 20,000 unit SUBCUT NOW ONE Stop: 06/06/23 21:30 Last Admin: 06/07/23 10:51 Dose: Not Given Fentanyl (Fentanyl 50 Mcg/Ml Inj 2ml) Confirm Administered Dose 100 mcg .ROUTE .STK-MED ONE Stop: 06/08/23 06:54 Furosemide (Furosemide 10 Mg/Ml Sdv 10ml) 80 mg IVP TID [facility] Last Admin: 06/07/23 08:29 Dose: 80 mg Guaifenesin (Guaifenesin 600 Mg Tablet) 600 mg PO BID [facility] Heparin Sodium (Porcine) (Heparin 5,000 Unit/Ml Inj 1 Ml) 5,000 unit SUBCUT Q12H [facility] Last Admin: 06/05/23 15:50 Dose: 5,000 unit Heparin Sodium (Porcine) (Heparin, Porcine 1,000 Unit/Ml Inj 10 Ml) 10,000 unit INTRACATH ONCE ONE Stop: 06/06/23 18:12 Last Admin: 06/06/23 20:29 Dose: Not Given Heparin Sodium (Porcine) (Heparin, Porcine 1,000 Unit/Ml Inj 10 Ml) 1,000 unit IV ONCE ONE Stop: 06/06/23 18:12 Last Admin: 06/06/23 18:41 Dose: 1,000 unit Heparin Sodium (Porcine) (Heparin, Porcine 1,000 Unit/Ml Inj 10 Ml) 10,000 unit INTRACATH ONCE ONE Stop: 06/06/23 21:27 Last Admin: 06/06/23 23:26 Dose: Not Given Heparin Sodium (Porcine) (Heparin, Porcine 1,000 Unit/Ml Inj 10 Ml) 1,000 unit IV ONCE ONE Stop: 06/06/23 21:27 Last Admin: 06/06/23 23:27 Dose: Not Given Heparin Sodium (Porcine) (Heparin, Porcine 1,000 Unit/Ml Inj 10 Ml) 10,000 unit INTRACATH ONCE ONE Stop: 06/07/23 21:01 Last Admin: 06/07/23 20:29 Dose: Not Given Heparin Sodium (Porcine) (Heparin, Porcine 1,000 Unit/Ml Inj 10 Ml) 1,000 unit IV ONCE ONE Stop: 06/07/23 21:01 Last Admin: 06/07/23 20:29 Dose: Not Given Heparin Sodium (Porcine) (Heparin, Porcine 1,000 Unit/Ml Inj 10 Ml) 10,000 unit INTRACATH ONCE ONE Stop: 06/08/23 09:52 Heparin Sodium (Porcine) (Heparin, Porcine 1,000 Unit/Ml Inj 10 Ml) 1,000 unit IV ONCE ONE Stop: 06/08/23 10:03 Heparin Sodium (Porcine) (Heparin, Porcine 1,000 Unit/Ml Inj 10 Ml) 10,000 unit INTRACATH ONCE ONE Stop: 06/08/23 12:16 Heparin Sodium (Porcine) (Heparin, Porcine 1,000 Unit/Ml Inj 10 Ml) 1,000 unit IV ONCE ONE Stop: 06/08/23 12:16 Hydromorphone HCl (Hydromorphone 1 Mg/Ml Inj 1 Ml) 0.2 mg IVP Q4H PRN PRN Reason: SEVERE PAIN Last Admin: 06/05/23 13:49 Dose: 0.2 mg Levofloxacin/Dextrose (Levaquin-D5w) 750 mg in 150 mls @ 100 mls/hr IV ONCE ONE; Protocol Stop: 06/02/23 10:39 Last Infusion: 06/02/23 10:59 Dose: Infused Ceftriaxone Sodium 1,000 mg/ (Sodium Chloride) 50 mls @ 100 mls/hr IV Q24H [facility]; Protocol Last Infusion: 06/07/23 22:15 Dose: Infused Azithromycin 500 mg/ Sodium (Chloride) 250 mls @ 250 mls/hr PO Q24H [facility]; Protocol Stop: 06/05/23 16:29 Last Admin: 06/04/23 16:02 Dose: 250 mls/hr Furosemide 100 mg/ Sodium (Chloride) 50 mls @ 0 mls/hr IV .Q0M [facility]; Protocol Last Titration: 06/05/23 22:00 Dose: Infused Albumin Human (Albumin) 25 g in 100 mls @ 60 mls/hr IV Q8H [facility] Last Infusion: 06/07/23 06:52 Dose: Infused Albumin Human (Albumin) 12.5 gm in 50 mls @ 60 mls/hr IV ONCE ONE Stop: 06/06/23 18:14 Last Infusion: 06/07/23 10:52 Dose: Infused Albumin Human (Albumin) 12.5 gm in 50 mls @ 60 mls/hr IV PRN PRN PRN Reason: Hypotension and/or symptomatic Insulin Glargine (Insulin Glargine 100 Units/1 Ml) 38 unit SUBCUT QAM [facility] Last Admin: 06/07/23 10:52 Dose: Not Given Insulin Glargine (Insulin Glargine 100 Units/1 Ml) 25 unit SUBCUT BEDTIME [facility] Last Admin: 06/07/23 21:21 Dose: 25 unit Lidocaine (Lidocaine 5% Patch) 1 patch TOPICAL [id number] [facility] Pantoprazole Sodium (Pantoprazole Dr 40 Mg Tablet) 40 mg PO DAILY [facility] Last Admin: 06/07/23 08:28 Dose: 40 mg Propofol (Propofol 10 Mg/Ml Sdv 20 Ml) Confirm Administered Dose 200 mg .ROUTE .STK-MED ONE Stop: 06/08/23 06:49 Rocuronium [place] (Rocuronium 10 Mg/Ml Inj 5ml) Confirm Administered Dose 50 mg .ROUTE .STK-MED ONE Stop: 06/08/23 07:13 Last Admin: 06/08/23 10:58 Dose: Not Given Rocuronium [place] (Rocuronium 10 Mg/Ml Inj 5ml) Confirm Administered Dose 50 mg .ROUTE .STK-MED ONE Stop: 06/08/23 07:17 Last Admin: 06/08/23 10:59 Dose: Not Given Rocuronium [place] (Rocuronium 10 Mg/Ml Inj 5ml) Confirm Administered Dose 50 mg .ROUTE .STK-MED ONE Stop: 06/08/23 09:08 Last Admin: 06/08/23 09:19 Dose: 50 mg Allergies furosemide [From Lasix] Allergy (Intermediate, Verified 06/02/23 09:55) kidney complications [place] Allergy (Unknown, Verified 06/02/23 09:55) inknown morphine Allergy (Verified 06/02/23 09:55) ADR-Hallucinating trazodone Allergy (Verified 06/02/23 09:55) RASH Home Medications amlodipine 10 mg tablet 10 mg PO QAM 01/21/20 [History Confirmed 06/02/23] terazosin 5 mg capsule 5 mg PO BID 08/18/20 [History Confirmed 06/02/23] atorvastatin 80 mg tablet 80 mg PO BEDTIME 10/05/20 [History Confirmed 06/02/23] cyclobenzaprine 10 mg tablet 10 mg PO BEDTIME PRN Muscle Spasm 06/14/21 [History Confirmed 06/02/23] pentoxifylline 400 mg tablet,extended release 400 mg PO BID 03/21/22 [History Confirmed 06/02/23] albuterol sulfate 90 mcg/actuation aerosol inhaler 2 puff inhalation Q6H PRN Shortness Of Breath 05/06/23 [History Confirmed 06/02/23] allopurinol 300 mg tablet 300 mg PO QAM 05/06/23 [History Confirmed 06/02/23] aspirin 81 mg tablet,delayed release 81 mg PO BEDTIME 05/06/23 [History Confirmed 06/02/23] cetirizine 10 mg tablet 10 mg PO BEDTIME 05/06/23 [History Confirmed 06/02/23] insulin lispro 100 unit/mL subcutaneous pen See Rx Instructions .Route .COMPLEX 05/06/23 [History Confirmed 06/02/23] sodium bicarbonate 650 mg tablet 1,300 mg PO BID 05/06/23 [History Confirmed 06/02/23] umeclidinium 62.5 mcg/actuation blister powder for inhalation (Incruse Ellipta) 1 inh inhalation DAILY 05/06/23 [History Confirmed 06/02/23] bumetanide 2 mg tablet 1 mg PO BID 30 days #30 tabs 05/09/23 [Rx Confirmed 06/02/23] clopidogrel 75 mg tablet 75 mg PO DAILY 30 days #30 tabs 05/09/23 [Rx Confirmed 06/02/23] methimazole 5 mg tablet 5 mg PO DAILY 30 days #30 tabs 05/09/23 [Rx Confirmed 06/02/23] nitroglycerin 0.4 mg sublingual tablet 0.4 mg sublingual Q5M PRN chest pain 30 days #30 tabs 05/09/23 [Rx Confirmed 06/02/23] tamsulosin 0.4 mg capsule 0.4 mg PO DAILY 30 days #30 caps 05/09/23 [Rx Confirmed 06/02/23] acetaminophen 500 mg tablet 1,500 mg PO BEDTIME 05/20/23 [History Confirmed 06/02/23] insulin glargine 100 unit/mL (3 mL) subcutaneous pen (Lantus Solostar U-100 Insulin) 38 unit SUBCUT QAM 05/20/23 [History Confirmed 06/02/23] acetaminophen 325 mg tablet 650 mg PO QID PRN Pain 06/02/23 [History Confirmed 06/02/23] bisacodyl 10 mg rectal suppository (Dulcolax (bisacodyl)) 10 mg NV DAILY PRN Constipation 06/02/23 [History Confirmed 06/02/23] bisacodyl 5 mg tablet,delayed release (Dulcolax (bisacodyl)) 5 mg PO DAILY PRN Constipation 06/02/23 [History Confirmed 06/02/23] metoprolol tartrate 50 mg tablet 50 mg PO BID 06/02/23 [History Confirmed 06/02/23] sodium phosphates 19 gram-7 gram/118 mL enema (Fleet Enema) 118 ml NV DAILY PRN Constipation 06/02/23 [History Confirmed 06/02/23] vitamins A and D-white petrolatum-lanolin topical ointment (A and D (nancy, pet) topical ointment) See Rx Instructions .Route .COMPLEX 06/02/23 [History Confirmed 06/02/23] Discharge Plan Discharge Patient Disposition: Xfer Short-Term Hosp Condition: Stable Prescriptions: No Action terazosin 5 mg capsule 5 mg PO BID amlodipine 10 mg tablet 10 mg PO QAM cyclobenzaprine 10 mg tablet 10 mg PO BEDTIME PRN (Reason: Muscle Spasm) atorvastatin 80 mg tablet 80 mg PO BEDTIME pentoxifylline 400 mg tablet extended release 400 mg PO BID Rx Instructions: must administer with a meal/food Lantus Solostar U-100 Insulin 100 unit/mL (3 mL) insulin pen 38 unit SUBCUT QAM cetirizine 10 mg tablet 10 mg PO BEDTIME aspirin 81 mg Tablet,Delayed Release (Dr/Ec) 81 mg PO BEDTIME sodium bicarbonate 650 mg tablet 1,300 mg PO BID allopurinol 300 mg tablet 300 mg PO QAM albuterol sulfate 90 mcg/actuation HFA aerosol inhaler 2 puff INHALATION Q6H PRN (Reason: Shortness Of Breath) insulin lispro 100 unit/mL insulin pen See Rx Instructions .ROUTE .COMPLEX Rx Instructions: INJECT SUBCUTANEOUSLY PER SLIDING SCALE THREE TIMES DAILY BEFORE MEALS DIRECTED - MAX DAILY DOSE OF 40 UNITS Incruse Ellipta 62.5 mcg/actuation blister with device 1 inh INHALATION DAILY clopidogrel 75 mg Tablet 75 mg PO DAILY 30 Days Qty: 30 0RF bumetanide 2 mg tablet 1 mg PO BID 30 Days Qty: 30 0RF tamsulosin 0.4 mg Capsule 0.4 mg PO DAILY 30 Days Qty: 30 0RF methimazole 5 mg Tablet 5 mg PO DAILY 30 Days Qty: 30 0RF nitroglycerin 0.4 mg tablet, sublingual 0.4 mg sublingual Q5M PRN (Reason: chest pain) 30 Days Qty: 30 0RF Rx Instructions: do not exceed 3 doses per episode acetaminophen 500 mg tablet 1,500 mg PO BEDTIME metoprolol tartrate 50 mg tablet 50 mg PO BID A and D (nancy, pet) Ointment See Rx Instructions .ROUTE .COMPLEX Rx Instructions: topically DIRECTED acetaminophen 325 mg Tablet 650 mg PO QID PRN (Reason: Pain) Dulcolax (bisacodyl) 10 mg Suppository 10 mg NV DAILY PRN (Reason: Constipation) Fleet Enema 19-7 gram/118 mL Enema 118 ml NV DAILY PRN (Reason: Constipation) Dulcolax (bisacodyl) 5 mg Tablet,Delayed Release (Dr/Ec) 5 mg PO DAILY PRN (Reason: Constipation) Referrals: [facility] [Outside] Laverne Mcpherson MD [Referring] - Patient Instructions: Opioid Safety Transfer Attestations Time Spent in Transfer Care: greater than 30 min Quality Metrics Clinical Quality Measures [ Acute Myocardial Infaction { Clinical Trial Participant: No; Contraindication to aspirin: None; Aspirin prescribed; Contraindication to statin: None; Statin prescribed; Contraindication to PCI: Further opinion sought (Planned);}] Coding Level of Care Code 86286 Total time (in minutes) for Discharge: 60 Diagnoses Respiratory failure J96.90 Congestive heart failure I50.9 NSTEMI (non-ST elevated myocardial infarction) I21.4 CKD (chronic kidney disease), stage V N18.5 Peripheral arterial disease I73.9 Diabetes E11.9
--- NOTE | 2023-06-08 16:49 | PC.HD ---
Small clot aspirated from venous port of cath pre-treatment, ports draw and flush easily. Levophed gtt infusing at 4mcg/min per STATION WORKER for BP support.
--- NOTE | 2023-06-08 17:00 | ECG_ITS ---
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 Measurements Intervals [place] Rate: 181 P: 0 WA: 0 QRS: -45 QRSD: 97 T: 106 QT: 245 QTc: 426 Interpretive Statements ATRIAL FIBRILLATION WITH RAPID VENTRICULAR RESPONSE PATTERN CONSISTENT WITH PULMONARY DISEASE INFERIOR MYOCARDIAL INFARCTION , OF INDETERMINATE AGE [40+ ms Q WAVE AND/OR ST/T ABNORMALITY IN II/aVF] CRITICAL TEST RESULT Compared to ECG 06/05/2023 20:19:37 Sinus rhythm no longer present Myocardial infarct finding still present Electronically Signed On 06-08-2023 23:27:16 CDT by Minerva Gee M.D. [email or web address] regional medical [email or web address] clinic av[id number]
[2023-06-08] MEDS: heparin, porcine 1,000 unit/mL INJ 10 mL 10000 UNIT INTRACATH (17:16)
--- NOTE | 2023-06-08 17:16 | ECG_ITS ---
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 Measurements Intervals [place] Rate: 79 P: 66 WA: 159 QRS: -43 QRSD: 84 T: 69 QT: 381 QTc: 438 Interpretive Statements SINUS RHYTHM WITH MARKED SINUS ARRHYTHMIA LOW QRS VOLTAGE IN PRECORDIAL LEADS [QRS DEFLECTION < 1.0 mV IN CHEST LEADS] INFERIOR MYOCARDIAL INFARCTION , PROBABLY OLD [40+ ms Q WAVE AND/OR ST/T ABNORMALITY IN II/aVF] Compared to ECG 06/08/2023 17:00:08 Low QRS voltage now present Atrial fibrillation no longer present Myocardial infarct finding still present Electronically Signed On 06-08-2023 23:23:00 CDT by Minerva Gee M.D. [id number]
[2023-06-08] MEDS: metOLazone 5 MG Tablet PO (17:29)
[2023-06-08 17:31] LABS: Glucose Point of Care 163 mg/dL (70-110)
[2023-06-08] MEDS: heparin drip 25,000 UNIT/500 ML PREMIX 25.15 UNIT IV (17:45)
--- NOTE | 2023-06-08 18:21 | PC.NURSE ---
At approximately 1600, Respiratory therapy performed inline suction. Patient went into SVT. Rate of 180's -190's. Carotid massage did not reduce heart rate. Blood pressure remains within normal limits. Nurse alerted Dr bradford who ordered and EKH and came to bedside. EKG shows afib with RVR. Synchroized cardioversion performed. Patient;s rhythm converted to NS. Started on amiodarone and heparin drip.
--- NOTE | 2023-06-08 19:07 | ECG_ITS ---
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 Measurements Intervals [place] Rate: 84 P: 65 VA: 160 QRS: -29 QRSD: 81 T: 66 QT: 374 QTc: 445 Interpretive Statements SINUS RHYTHM WITH OCCASIONAL SUPRAVENTRICULAR PREMATURE COMPLEXES LOW QRS VOLTAGE IN PRECORDIAL LEADS [QRS DEFLECTION < 1.0 mV IN CHEST LEADS] INFERIOR MYOCARDIAL INFARCTION , OF INDETERMINATE AGE [40+ ms Q WAVE AND/OR ST/T ABNORMALITY IN II/aVF] Compared to ECG 06/08/2023 18:33:40 Sinus arrhythmia no longer present Myocardial infarct finding still present Electronically Signed On 06-08-2023 23:19:24 CDT by Minerva Gee M.D. [email or web address]/[id number]
--- NOTE | 2023-06-08 19:34 | PC.NURSE ---
Delay transferring to [facility] due to need for synchronized cardioversion. Dr Vizcaino reviewed most recent EKG and advised to continue with transfer.
--- NOTE | 2023-06-08 21:58 | PC.NURSE ---
Addendum entered by Maria Guadalupe Burgos RN 06/08/23 22:13: 30 ml of fentanyl observed wasted with JEFFERSON Figueroa Original Note: 30 mL of Fentanyl was waisted and observed by JEFFERSON Lerma
--- NOTE | 2023-06-08 22:22 | PC.NURSE ---
Patient's vitals were stable before calling [facility]. 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 They were given report and a new bag of Amiodarone had to be ordered since the bag of Amiodarone that was hanging up ripped. Fentanyl was stopped and 30 mL were waisted observed by JEFFERSON Lerma. [facility] took the patient with propofol, norepinephren, and amiodarone drips running. [facility] was out of the ICU by 2040. Update about the patient was given to ICU in [facility].
== END 2023-06-08 20:41 | disposition short-term general hospital (02) | DRG 291 ==
LOC: ER 09:00 → ICU 13:10
PROVIDERS: Hospitalist; Admitting Provider Student in an Organized Health Care Education/Training Program; Emergency Provider Family Medicine; PCP Internal Medicine; Visit Provider Internal Medicine
DX: I13.2 Hypertensive heart and chronic kidney disease with heart failure and with stage 5 chronic kidney disease, or end stage renal disease (principal); I50.33 Acute on chronic diastolic (congestive) heart failure; J69.0 Pneumonitis due to inhalation of food and vomit; J96.00 Acute respiratory failure, unspecified whether with hypoxia or hypercapnia; N18.5 Chronic kidney disease, stage 5; J94.2 Hemothorax; E11.22 Type 2 diabetes mellitus with diabetic chronic kidney disease; I48.91 Unspecified atrial fibrillation; I25.2 Old myocardial infarction; Z87.01 Personal history of pneumonia (recurrent); E05.00 Thyrotoxicosis with diffuse goiter without thyrotoxic crisis or storm; R13.10 Dysphagia, unspecified; R00.0 Tachycardia, unspecified; I95.9 Hypotension, unspecified; Z79.82 Long term (current) use of aspirin; Z89.511 Acquired absence of right leg below knee; L89.522 Pressure ulcer of left ankle, stage 2; Z87.891 Personal history of nicotine dependence; I35.0 Nonrheumatic aortic (valve) stenosis; E11.51 Type 2 diabetes mellitus with diabetic peripheral angiopathy without gangrene; R74.01 Elevation of levels of liver transaminase levels; D63.1 Anemia in chronic kidney disease
CPT/HCPCS: 36415; 36416; 36573; 36600; 51702; 71045; 71250; 76705; 80051; 80053; 82310; 82330; 82550; 82805; 82962; 83605; 83735; 83970; 84100; 84484; 85025; 86705; 86706; 86709; 86803; 87040; 87070; 87205; 87340; 87635; 90935; 92610; 93005; 93308; 93970; 94002; 94640; 94660; 94669; 94799; 96365; 96372; 96376; 99285; C9113; J0282; J0456; J0696; J1170; J1644; J1650; J1815; J1940; J1956; J2405; J2543; J2704; J3010; J3490; J7050; J7060; J7626; P9046; P9047; Q3014

== ENCOUNTER 2023-09-15 21:52 | Inpatient (IN) | payer MEDICARE, MEDICAID, SELFPAY ==
[2023-09-15 21:54] VITALS: BP 115/49; PULSE 95; RESP 22; TEMP 36.6; O2SAT 91; BMI 23.6
--- NOTE | 2023-09-15 22:01 | XRR_ITS ---
PROCEDURE INFORMATION: Exam: XR Chest Exam date and time: 09/15/2023 10:22 PM Age: 58 years old Clinical indication: Shortness of breath; Additional info: SOB TECHNIQUE: Imaging protocol: Radiologic exam of the chest. Views: 1 view. COMPARISON: CT chest [place] [id number] 06/08/2023 2:10 PM FINDINGS: Tubes, catheters and devices: Interval placement of a right internal jugular dialysis catheter with the tip at the cavoatrial junction. Lungs: Redemonstration of density in the right and left lower lobe1s. Moderate interstitial pulmonary edema with superimposed atelectasis versus pneumonia in the right middle lobe, left lingula, and right and left lower lobes. Findings are overall stable compared with the prior CT scan. Pleural spaces: No pneumothorax. Stable moderate/large right pleural effusion. Left pleural effusion has essentially resolved. Heart/Mediastinum: Stable moderate enlargement of the cardiac silhouette. Mediastinal contours are unremarkable. Bones/joints: Unremarkable for age. XR/XR chest 1V portable [id number] IMPRESSION: 1. Moderate interstitial pulmonary edema with superimposed atelectasis versus pneumonia in the right middle lobe, left lingula, and right and left lower lobes. Findings are overall stable compared with the prior CT scan. 2. Stable moderate/large right pleural effusion. Left pleural effusion has essentially resolved. 3. Interval placement of a right internal jugular dialysis catheter with the tip at the cavoatrial junction. 4. Redemonstration of increased density in the right and left lower lobes which may be due to iron deposition, possibly from prior Amiodarone treatment or possibly sequela of prior aspirated contents. Recommend clinical correlation. 5. Incidental/nonacute findings are listed in the report.
[2023-09-15 22:15] VITALS: BP 115/49; PULSE 93; RESP 80; O2SAT 92
[2023-09-15 22:15] LABS: Glucose Point of Care 393 mg/dL (70-110)
--- NOTE | 2023-09-15 22:15 | ECG_ITS ---
[facility] Test Date: 2023-09-15 Pat Name: Matthew Barrios Department: Room: Gender: Male First Aid Director: : 1965 Requested By: Phyllis Park Order Number: [id number] Yuliana MD: Trinh Lopez M.D. Measurements Intervals [place] Rate: 97 P: 74 IN: 173 QRS: -50 QRSD: 97 T: 90 QT: 283 QTc: 360 Interpretive Statements SINUS RHYTHM WITH FREQUENT SUPRAVENTRICULAR PREMATURE COMPLEXES LEFT ANTERIOR FASCICULAR BLOCK [QRS AXIS <= -45, QR IN I, RS IN II] NONSPECIFIC ST & T-WAVE ABNORMALITY Compared to ECG 06/08/2023 19:07:47 PACs now present Electronically Signed On 09-16-2023 9:14:10 REAL ESTATE INVESTMENT ANALYST by Trinh Lopez M.D. [id number]
[2023-09-15] MEDS: insulin regular-human 100 units/1 mL 10 UNIT IVP (22:22)
--- NOTE | 2023-09-15 22:24 | W.ED.SOB ---
HPI - SOB/Dyspnea General: Chief Complaint: Shortness of Breath/Dyspnea Stated Complaint: SOB Time Seen by Provider: 09/15/23 21:54 Source: patient and EMS Mode of arrival: EMS Limitations: no limitations History of Present Illness: HPI Narrative: 58-year-old male is here [facility] he has a history of end-stage renal disease he is on dialysis he states he received dialysis yesterday. States today's had some increasing shortness of breath he is on 5 L of oxygen at the intermediate he is on 4 here and satting 95% they are concerned as his blood sugars in the 500s very states that he did not get his Lantus dose in the evening. Associated symptoms: Deny abdominal pain, chest pain, fever(s), nausea or vomiting Review of Systems Const: Denies: fever(s), chills, body aches or change in appetite Eyes: Denies: blurry vision or eye discomfort ENMT: Denies: throat pain or dental pain Card: Denies: chest pain Resp: Reports: dyspnea GI: Denies: abdominal pain, nausea, vomiting or diarrhea : Denies: dysuria Musc: Denies: neck pain or back pain Skin/Breast: Denies: rash Neuro: Denies: headache(s) PFSH ED PFSH: Medical History Chronic kidney disease Diabetes Graves disease History of tonsillitis Hypertension Surgical History History of amputation below knee History of cholecystectomy History of eye surgery History of knee surgery History of tonsillectomy and adenoidectomy Family History Grandmother Dementia Social History Smoking and tobacco/nicotine status: former use of tobacco/nicotine Alcohol intake: never Substance/Drug Use: never Physical Exam Const: COMMON NORMALS: patient oriented x3 HENMT: COMMON NORMALS: normocephalic and atraumatic HEAD & SCALP: normocephalic and atraumatic Eye: COMMON NORMALS: Equal, round and reactive pupils present and EOMs intact bilaterally PUPIL: Yes Equal, round and reactive pupils present Neck/C-Spine: COMMON NORMALS: full ROM and supple Chest: COMMONS NORMALS: normal inspection of the chest and normal palpation of entire chest wall Resp: COMMON NORMALS: normal respiratory effort, No retractions, No use of accessory muscles and clear to auscultation bilaterally AUSCULTATION: clear to auscultation bilaterally Cardio: COMMON NORMALS: regular rate, regular rhythm and No murmurs present (Cardio) RATE: regular rate RHYTHM: regular rhythm GI: COMMON NORMALS: Normal to inspection, nondistended, normoactive bowel sounds present, Soft to palpation, non-tender and no masses PALPATION: Yes Soft to palpation Back/Pelvis: OTHER: Large decubitus ulcer with no signs of acute infection Extremity: COMMON NORMALS: normal to inspection and full ROM Neuro: COMMON NORMALS: patient oriented x3, moves all extremities and no focal motor deficits Psych: COMMON NORMALS: mental status grossly normal, Normal thought process present and cooperative THOUGHT PROCESS: Normal thought process present Skin: COMMON NORMALS: no rashes or lesions noted and no wounds GENERAL SKIN EXAM: no rashes or lesions noted Course Vital Signs: Vital signs: Vital Signs Temperature 97.9 F 09/15/23 21:54 Pulse Rate 93 09/15/23 22:15 Respiratory Rate 80 H 09/15/23 22:15 Blood Pressure 115/49 09/15/23 22:15 Pulse Oximetry 92 09/15/23 22:15 Oxygen Delivery Me thod Nasal Cannula 09/15/23 22:15 Oxygen Flow Rate 5 09/15/23 21:54 MDM - SOB/Dyspnea Medical Decision Making 58-year-old male who presented here with dyspnea has a history of chronic kidney disease he also has a large decubitus ulcer. Does have an elevated white count here has possible pneumonia on x-ray. No signs of severe infection on my exam to his decub ulcer but it could be infected causing his white count as well patient given IV antibiotics blood cultures were drawn I spoke to the hospitalist who will admit. Medical Records I reviewed the patient's medical records. Lab Data I reviewed the patient's lab results. 09/15/23 22:13 09/15/23 22:13 Labs/Radiology: Radiology Impressions Chest X-Ray 09/15/23 22:01 IMPRESSION: 1. Moderate interstitial pulmonary edema with superimposed atelectasis versus pneumonia in the right middle lobe, left lingula, and right and left lower lobes. Findings are overall stable compared with the prior CT scan. 2. Stable moderate/large right pleural effusion. Left pleural effusion has essentially resolved. 3. Interval placement of a right internal jugular dialysis catheter with the tip at the cavoatrial junction. 4. Redemonstration of increased density in the right and left lower lobes which may be due to iron deposition, possibly from prior Amiodarone treatment or possibly sequela of prior aspirated contents. Recommend clinical correlation. 5. Incidental/nonacute findings are listed in the report. Laboratory Results WBC 22.31 10^3/uL (3.29-11.43) H 09/15/23 22:13 RBC 2.60 10^6/uL (3.85-5.65) L 09/15/23 22:13 Hgb 7.40 g/dL (11.27-16.99) L 09/15/23 22:13 Hct 24.7 % (37-53) L 09/15/23 22:13 MCV 95.0 fl (82-101) 09/15/23 22:13 MCH 28.5 pg (27-33) 09/15/23 22:13 MCHC 30.0 g/dL (30-55) 09/15/23 22:13 RDW 17.9 % (12.1-15.1) H 09/15/23 22:13 Plt Count 440 10^3/cmm (157-399) H 09/15/23 22:13 MPV 8.6 fL (7.4-10.4) 09/15/23 22:13 Neut % (Auto) 83.4 % 09/15/23 22:13 Lymph % (Auto) 6.4 % 09/15/23 22:13 Bland % (Auto) 6.4 % 09/15/23 22:13 Eos % (Auto) 0.4 % 09/15/23 22:13 Baso % (Auto) 0.4 % 09/15/23 22:13 Neut # (Auto) 18.61 10^3/uL (1.8-7.7) H 09/15/23 22:13 Lymph # (Auto) 1.4 10^3/uL (0.8-4.8) 09/15/23 22:13 Bland # (Auto) 1.4 10^3/uL (0.2-0.9) H 09/15/23 22:13 Eos # (Auto) 0.1 10^3/uL (0.0-0.8) 09/15/23 22:13 Baso # (Auto) 0.1 10^3/uL (0.0-0.1) 09/15/23 22:13 Nucleated RBC % (auto) 0 % 09/15/23 22:13 Nucleated RBCs # 0.0 /100WBC 09/15/23 22:13 APTT 45.8 SECONDS (23.9-36.7) H 09/15/23 22:13 Sodium 133 mmol/L (136-145) L 09/15/23 22:13 Potassium 2.8 mmol/L (3.5-5.1) L* 09/15/23 22:13 Chloride 92 mmol/L (98-107) L 09/15/23 22:13 Carbon Dioxide 30 mmol/L (22-29) H 09/15/23 22:13 Anion Gap 13.8 (5-19) 09/15/23 22:13 BUN 25 mg/dL (6-20) H 09/15/23 22:13 Creatinine 2.9 mg/dL (0.7-1.2) H 09/15/23 22:13 GFR Calculation 22.6 mL/min (90-130) L 09/15/23 22:13 Glucose 393 mg/dL (65-115) H 09/15/23 22:13 POC Glucose 393 mg/dL (70-110) H 09/15/23 22:12 Calculated Osmolality 297 mOsm/kg (285-295) H 09/15/23 22:13 Calcium 8.9 mg/dL (8.5-10.5) 09/15/23 22:13 Total Bilirubin 0.2 mg/dL (0.15-1.2) 09/15/23 22:13 AST 11 U/L (0-40) 09/15/23 22:13 ALT 14 U/L (0-41) 09/15/23 22:13 Alkaline Phosphatase 130 U/L (40-130) 09/15/23 22:13 Troponin T Baseline 426 ng/L (0-15) H* 09/15/23 22:13 NT-Pro-B Natriuret Pep > 49356 pg/mL (0-125) H 09/15/23 22:13 Total Protein 5.7 g/dL (6.6-8.7) L 09/15/23 22:13 Albumin 2.2 g/dL (3.5-5.2) L 09/15/23 22:13 Globulin 3.5 g/dL (1.3-4.6) 09/15/23 22:13 All radiology interpretation(s) finalized by discharge Discharge Plan Discharge Condition: Stable Prescriptions: No Action terazosin 5 mg capsule 5 mg PO BID amlodipine 10 mg tablet 10 mg PO QAM cyclobenzaprine 10 mg tablet 10 mg PO BEDTIME PRN (Reason: Muscle Spasm) atorvastatin 80 mg tablet 80 mg PO BEDTIME pentoxifylline 400 mg tablet extended release 400 mg PO BID Rx Instructions: must administer with a meal/food Lantus Solostar U-100 Insulin 100 unit/mL (3 mL) insulin pen 38 unit SUBCUT QAM cetirizine 10 mg tablet 10 mg PO BEDTIME aspirin 81 mg Tablet,Delayed Release (Dr/Ec) 81 mg PO BEDTIME sodium bicarbonate 650 mg tablet 1,300 mg PO BID allopurinol 300 mg tablet 300 mg PO QAM albuterol sulfate 90 mcg/actuation HFA aerosol inhaler 2 puff INHALATION Q6H PRN (Reason: Shortness Of Breath) insulin lispro 100 unit/mL insulin pen See Rx Instructions .ROUTE .COMPLEX Rx Instructions: INJECT SUBCUTANEOUSLY PER SLIDING SCALE THREE TIMES DAILY BEFORE MEALS DIRECTED - MAX DAILY DOSE OF 40 UNITS Incruse Ellipta 62.5 mcg/actuation blister with device 1 inh INHALATION DAILY bumetanide 2 mg tablet 1 mg PO BID 30 Days Qty: 30 0RF acetaminophen 500 mg tablet 1,500 mg PO BEDTIME metoprolol tartrate 50 mg tablet 50 mg PO BID A and D (nancy, pet) Ointment See Rx Instructions .ROUTE .COMPLEX Rx Instructions: topically DIRECTED acetaminophen 325 mg Tablet 650 mg PO QID PRN (Reason: Pain) Dulcolax (bisacodyl) 10 mg Suppository 10 mg KS DAILY PRN (Reason: Constipation) Fleet Enema 19-7 gram/118 mL Enema 118 ml KS DAILY PRN (Reason: Constipation) Dulcolax (bisacodyl) 5 mg Tablet,Delayed Release (Dr/Ec) 5 mg PO DAILY PRN (Reason: Constipation) Referrals: César Gallegos DO [Primary Care Provider] - Coding Level of Care Code ED Manager Pharmacy for [facility]
[2023-09-15 22:26] LABS: Basophils # 0.1 10^3/uL (0.0-0.1); Basophils % 0.4 %; Eosinophils # 0.1 10^3/uL (0.0-0.8); Eosinophils % 0.4 %; Hematocrit 24.7 % (37-53); Lymphocytes # 1.4 10^3/uL (0.8-4.8); Lymphocytes % 6.4 %; Mean Corpuscular Hemoglobin 28.5 pg (27-33); Mean Platelet Volume 8.6 fL (7.4-10.4); Monocytes # 1.4 10^3/uL (0.2-0.9); Monocytes % 6.4 %; Neutrophils # 18.61 10^3/uL (1.8-7.7); Neutrophils % 83.4 %; Nucleated Red Blood Cells % 0 %; Platelet Count 440 10^3/cmm (157-399); Red Cell Distribution Width 17.9 % (12.1-15.1); White Blood Count 22.31 10^3/uL (3.29-11.43)
[2023-09-15 22:38] LABS: Partial Thromboplastin Time 45.8 SECONDS (23.9-36.7)
[2023-09-15 22:53] LABS: Alanine Aminotransferase 14 U/L (0-41); Albumin Level 2.2 g/dL (3.5-5.2); Alkaline Phosphatase 130 U/L (40-130); Anion Gap 13.8 (5-19); Aspartate Amino Transferase 11 U/L (0-40); Blood Urea Nitrogen 25 mg/dL (6-20); Calcium 8.9 mg/dL (8.5-10.5); Carbon Dioxide 30 mmol/L (22-29); Chloride 92 mmol/L (98-107); Globulin 3.5 g/dL (1.3-4.6); Glomerular Filtration Rate 22.6 mL/min (90-130); Glucose 393 mg/dL (65-115); Osmolality Calculated 297 mOsm/kg (285-295); Sodium 133 mmol/L (136-145); Total Bilirubin 0.2 mg/dL (0.15-1.2); Total Protein 5.7 g/dL (6.6-8.7)
[2023-09-15 23:04] LABS: Potassium 2.8 mmol/L (3.5-5.1)
[2023-09-15] MEDS: potassium chloride ER 20 mEq Tablet 40 MEQ PO (23:10)
--- NOTE | 2023-09-15 23:17 | P.HP_ITS ---
Providers/Chief Complaint Primary Care Provider: César Gallegos DO Chief Complaint: SOB History of Present Illness Matthew Barrios Jr is a 58 year old male who has multiple comorbid condition including end-stage renal disease Saturday, last session was on Saturday, was sent to the hospital for hyperglycemia and hypoxemia. Patient uses 4 to 5 L at baseline. He is from [facility]. Please note he spent 3 minutes in [place], patient had Diverting colostomy because of hisstage IV sacral ulcer, patient was [facility]. Patient is bedbound, right leg amputee. Type II diabetic In the ER he is requiring 5 to 6 L, hemodynamically stable complaining of hip pain. He has leukocytosis with productive cough chest x-ray showing possibility for pneumonia, will request CT chest without contrast Start antibiotic Review of Systems Const: Denies: fever(s) Eyes: Denies: change in vision ENMT: Denies: throat pain Card: Denies: chest pain Resp: Reports: dyspnea and productive cough GI: Denies: abdominal pain : Denies: flank pain Musc: Reports: back pain Medications/Allergies Home Medications Medication Instructions Recorded Confirmed Last Taken Type amlodipine 10 mg tablet 10 mg PO QAM 01/21/20 06/02/23 06/02/23 History terazosin 5 mg capsule 5 mg PO BID 08/18/20 06/02/23 06/02/23 History atorvastatin 80 mg tablet 80 mg PO BEDTIME 10/05/20 06/02/23 06/01/23 History cyclobenzaprine 10 mg tablet 10 mg PO BEDTIME PRN Muscle Spasm 06/14/21 06/02/23 Unknown History pentoxifylline 400 mg 400 mg PO BID 03/21/22 06/02/23 06/02/23 History tablet,extended release albuterol sulfate 90 mcg/actuation 2 puff inhalation Q6H PRN 05/06/23 06/02/23 Unknown History aerosol inhaler Shortness Of Breath allopurinol 300 mg tablet 300 mg PO QAM 05/06/23 06/02/23 06/02/23 History aspirin 81 mg tablet,delayed 81 mg PO BEDTIME 05/06/23 06/02/23 06/02/23 History release cetirizine 10 mg tablet 10 mg PO BEDTIME 0706/02/23 06/02/23 History insulin lispro 100 unit/mL See Rx Instructions .Route .COMPLEX 05/06/23 06/02/23 06/02/23 History subcutaneous pen sodium bicarbonate 650 mg tablet 1,300 mg PO BID 05/06/23 06/02/23 06/02/23 History umeclidinium 62.5 mcg/actuation 1 inh inhalation DAILY 05/06/23 06/02/23 06/02/23 History blister powder for inhalation (Incruse Ellipta) bumetanide 2 mg tablet 1 mg PO BID 30 days #30 tabs 05/09/23 06/02/23 06/02/23 Rx acetaminophen 500 mg tablet 1,500 mg PO BEDTIME 05/20/23 06/02/23 06/01/23 History insulin glargine 100 unit/mL (3 38 unit SUBCUT QAM 05/20/23 06/02/23 06/02/23 History mL) subcutaneous pen (Lantus Solostar U-100 Insulin) acetaminophen 325 mg tablet 650 mg PO QID PRN Pain 06/02/23 06/02/23 Unknown History bisacodyl 10 mg rectal suppository 10 mg NC DAILY PRN Constipation 06/02/23 06/02/23 Unknown History (Dulcolax (bisacodyl)) bisacodyl 5 mg tablet,delayed 5 mg PO DAILY PRN Constipation 06/02/23 06/02/23 Unknown History release (Dulcolax (bisacodyl)) metoprolol tartrate 50 mg tablet 50 mg PO BID 06/02/23 06/02/23 06/02/23 History sodium phosphates 19 gram-7 118 ml NC DAILY PRN Constipation 06/02/23 06/02/23 Unknown History gram/118 mL enema (Fleet Enema) vitamins A and D-white See Rx Instructions .Route .COMPLEX 06/02/23 06/02/23 History petrolatum-lanolin topical ointment (A and D (nancy, pet) topical ointment) Allergies Allergy/AdvReac Type Severity Reaction Status Date / Time furosemide [From Lasix] Allergy Intermediate kidney Verified 09/15/23 22:02 complications wal[place] Allergy Unknown inknown Verified 09/15/23 22:02 morphine Allergy ADR-Halluci Verified 09/15/23 22:02 nating trazodone Allergy RASH Verified 09/15/23 22:02 PFSH Acute PFSH: Medical History Chronic kidney disease Diabetes Graves disease History of tonsillitis Hypertension Surgical History History of amputation below knee History of cholecystectomy History of eye surgery History of knee surgery History of tonsillectomy and adenoidectomy Family History Grandmother Dementia Social History Smoking and tobacco/nicotine status: former use of tobacco/nicotine Alcohol intake: never Substance/Drug Use: never Vitals/I&O/Wt Last Vital Signs Temp 97.9 F 09/15/23 21:54 Pulse 93 09/15/23 22:15 Resp 80 H 09/15/23 22:15 BP 115/49 09/15/23 22:15 Pulse Ox 92 09/15/23 22:15 O2 Del Method Nasal Cannula 09/15/23 22:15 O2 Flow Rate 5 09/15/23 21:54 Weight last 48 hrs Weight 79 kg Physical Exam Narrative: Sacral area ulcer no active signs of bleeding or infection Right leg amputee Crackles positive Currently on 6 L Awake and alert GCS [address] on right Pleasant and cooperative Nonfocal neuro exam Daughter is at the bedside S1, S2 Data 09/15/23 22:13 09/15/23 22:13 A&P Assessment and plan (1) Community acquired pneumonia: (2) Congestive heart failure: (3) CKD (chronic kidney disease), stage V: (4) Peripheral arterial disease: (5) Uncontrolled diabetes mellitus: (6) Aortic stenosis: (7) Diabetes: (8) Hypertension: (9) Hypoxia: Plan Hospital-acquired pneumonia We will use vancomycin and cefepime and Zosyn renally dosed We will request CT chest without contrast Acute on chronic hypoxia At baseline uses 4 to 5 L Currently on 6 L Sacral ulcer present on admission Status post diverting colostomy We will place Reed catheter to monitor urine output Hyperglycemia related to diabetes Check A1c level Continue Lantus along sliding scale No signs of DKA Resident of prison, [facility] Has multiple comorbid conditions End-stage renal disease: Patient is dialyzed Saturday, Saturday Continue volume overload he might need dialysis on Saturday CHF exacerbation: Systolic in nature Continue Bumex Hypokalemia: Gentle replenishment Troponin elevation no active chest pain No ischemic changes on EKG BNP greater than 70,000 Could be type II ME related to end-stage renal disease Chronic anemia: Stable anemia of chronic disease Continue heparin as DVT prophylaxis Full code Consistent carb diet Request records from [facility] Attestations Medical Necessity Statement*: Anticipating more than 2 midnights Coding Level of Care Code Acute Code for Chg Fwd Diagnoses Community acquired pneumonia J18.9 Congestive heart failure I50.9 CKD (chronic kidney disease), stage V N18.5 Peripheral arterial disease I73.9 Uncontrolled diabetes mellitus Aortic stenosis I35.0 Diabetes E11.9 Hypertension I10 Hypoxia R09.02
[2023-09-15 23:19] LABS: Troponin(5th) Baseline 426 ng/L (0-15)
[2023-09-15 23:20] LABS: NT Pro B Type Natriuretic Pept > 70000 pg/mL (0-125)
[2023-09-15] MEDS: ondansetron 2 mg/ML SDV 2 mL 4 MG IVP (23:22)
[2023-09-15] MEDS: HYDROmorphone 1 mg/mL INJ 1 mL IVP (23:24)
[2023-09-15 23:32] LABS: Magnesium 2.1 mg/dL (1.7-2.3)
[2023-09-15 23:33] VITALS: PULSE 85; RESP 20; O2SAT 95
[2023-09-16] VITALS (21 sets, daily range): BP systolic 82–124; BP diastolic 44–74; PULSE 67–95; RESP 14–26; TEMP 36.7–36.9; O2SAT 90–100; BMI 24.8; BMI 24.0
[2023-09-16] MEDS: vancomycin 1,000 MG in sodium chloride 0.9% 250 ML 250 MG IV ×2 (00:14→23:57)
[2023-09-16 00:41] LABS: Estmated Average Glucose 120; Hemoglobin A1C 5.8 % (4.0-6.0)
[2023-09-16 00:44] LABS: Glucose Point of Care 189 mg/dL (70-110)
[2023-09-16] MEDS: piperacillin-tazobactam 3.375 GM in sodium chloride 0.9% (plus) 50 ML IV ×3 (00:44→19:27)
[2023-09-16] MEDS: oxyCODONE 5 mg IR Tab/Cap PO ×2 (00:44→23:58)
[2023-09-16] MEDS: lidocaine 5% Patch 1 PATCH TOPICAL (00:46)
[2023-09-16] MEDS: lidocaine 5% Patch 3 PATCH TOPICAL (00:57)
[2023-09-16 01:49] LABS: ABG PCO2 51.2 mmHg (35-45); ABG PH Result 7.43 (7.35-7.45); Arterial Blood Gas Hematocrit 26.9 % (42-52); Base Excess ABG 8.8 mmol/L (-2.0-2.0); Blood Gas Allen Test Pos; Blood Gas Sample Site Radial, right; Blood Gas Sample Type Arterial; HCO3 ABG 34.2 mmol/L (22-26); Oxygen Device NC
[2023-09-16] MEDS: heparin 5,000 unit/mL INJ 1 mL 5000 UNIT SUBCUT ×3 (01:50→23:58)
[2023-09-16 04:31] LABS: Basophils # 0.1 10^3/uL (0.0-0.1); Basophils % 0.3 %; Eosinophils # 0.1 10^3/uL (0.0-0.8); Eosinophils % 0.5 %; Hematocrit 23.7 % (37-53); Lymphocytes # 1.7 10^3/uL (0.8-4.8); Lymphocytes % 7.2 %; Mean Corpuscular Hemoglobin 28.2 pg (27-33); Mean Platelet Volume 8.6 fL (7.4-10.4); Monocytes # 1.2 10^3/uL (0.2-0.9); Monocytes % 5.1 %; Neutrophils # 19.63 10^3/uL (1.8-7.7); Neutrophils % 84.7 %; Nucleated Red Blood Cells % 0 %; Platelet Count 414 10^3/cmm (157-399); Red Blood Count 2.52 10^6/uL (3.85-5.65); White Blood Count 23.18 10^3/uL (3.29-11.43)
[2023-09-16 05:00] LABS: Anion Gap 13.3 (5-19); Blood Urea Nitrogen 26 mg/dL (6-20); Calcium 8.7 mg/dL (8.5-10.5); Carbon Dioxide 31 mmol/L (22-29); Chloride 96 mmol/L (98-107); Glomerular Filtration Rate 21.8 mL/min (90-130); Glucose 121 mg/dL (65-115); Magnesium 2.2 mg/dL (1.7-2.3); Osmolality Calculated 290 mOsm/kg (285-295); Potassium 3.3 mmol/L (3.5-5.1); Sodium 137 mmol/L (136-145)
[2023-09-16 05:01] LABS: Troponin 5 6HR 454.6 ng/L (0-15); Troponin 5 6HR Delta 28.6 ng/L (0-12)
[2023-09-16] MEDS: amlodipine 10 mg Tablet PO (06:07)
[2023-09-16] MEDS: oxyCODONE-APAP 5-325 mg Tablet 1 TAB PO (06:07)
[2023-09-16] MEDS: allopurinol 300 mg Tablet PO (06:07)
--- OUTSIDE RECORDS SUMMARY | 2023-09-16 06:26 | XMS_ITS | Patient Health Record ---
Author Name Unknown Organization [facility] Address [address] [place] [address] Care Team Providers Care Medical Science Liaison Name Role Phone Laverne Mcpherson Primary Care Provider Tan Ashford, Barrera Unavailable [phone] ALLERGIES Allergen (clinical drug ingredient) Drug/Non Drug [...] 5 MG Take 1 capsule by mo [facility] twice daily for 90 Active atorvastatin 80 [...] ys weekly Active Lantus Active HumaLOG Active IMMUNIZATIONS Vaccine Route Administration Date Status Comme nts Influenza (whole), CPT 04872 Inactive Unknown 07/26/2017 Administered Influenza (whole), CPT 90014 Inactive Unknown 07/21/2018 Administered SOCIAL HISTORY Tobacco Use: Social History Observation Description Date Details (start date - stop date) Former Smoker NA - NA Sex Assigned At : Social History Observation Description Sex Assigned At Unknown Household Question Answer Notes Baptist: Taoism Level of education: finished college Tobacco Use/Smoking [...] W/U Status Risk SNOMED Code Notes Problem Chronic metabolic acidosis (E87.22) Active confirmed 90507621 Problem 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) Active confirmed Chronic kidney disease due to type 1 diabetes mellitus (42284634800576) Problem Chronic kidney disease due to diabetes mellitus (E11.22) Active confirmed Diabetic renal disease (046343058) Problem Type 2 diabetes mellitus with chronic kidney disease, without long-term current use of insulin, unspecified CKD stage (E11.22) Active confirmed Diabetic gabo l disease (057746834) Problem Iron deficiency anemia secondary to inadequate dietary iron intake (D50.8) Active confirmed 105493769 Problem Chronic kidney disease, stage IV (severe) (N18.4) Active confirmed Chronic kid terri disease stage 4 (241603788) Problem Proteinuria (R80.9) Active confirmed Pr oteinuria (82519066) Problem Hypoalbuminemia (E88.09) Active confirmed 067925203 Problem Anemia (D64.9) Active confirmed Anemia (855120107) Problem CKD (chronic kidney disease) stage 4, GFR 15-29 ml/min (N18.4) Active confirmed 826748495 Problem Diabetes (E11.9) Active confirmed Diabe nadeem mellitus without complication (490234957) Problem Hyperuricemia (E79.0) Active confirmed Hyperuricemia (34156223) Problem Hypertension, benign (I10) Active confirmed Benign hyperten justice (48604206) Problem Metabolic acidosis (E87.2) Active confirmed Metabolic acido sis (70708985) Problem Hyperphosphatemia (E83.39) Active confirmed Hyperphosphatem ia (71322689) Problem Nephrotic range proteinuria (R80.9) Active confirmed 970559206 Problem CKD (chronic kidney disease), stage III (N18.3) Active confirmed Chronic kidney disease stage 3 (751751525) Problem Iron deficiency anemia, unspecified iron deficiency anemia type (D50.9) Active confirmed 71946408 Problem Iron deficiency anemia, unspecified iron deficiency anemia type (D50.9) Active confirmed Iron def iciency anemia (07994462) Problem Dependence on renal dialysis (Z99.2) Active confirmed 563491091 Problem End stage renal disease (N18.6) Active confirmed 99943371 Problem Hypertensive chronic kidney disease with stage 1 through stage 4 chronic kidney disease, or unspecified chronic kidney disease (I12.9) Active confirmed Chronic kidney disease due to hypertension (601251183488258) Problem Type 2 diabetes mellitus with diabetic chronic kidney disease (E11.22) Active confirmed Diabetic renal disease (641218582) Problem Anemia in chronic kidney disease (D63.1) Active confirmed 259479244 VITAL SIGNS Heart Rate 71 /min 03/13/2023 Temperature 97.0 degrees Fahrenheit 03/13/2023 Blood pressure diastolic 59 mm Hg 03/13/2023 Oximetry 94 % 03/13/2023 Weight-kg 88.45 kg 03/13/2023 Height 71 in 03/13/2023 Blood pressure systolic 134 mm Hg 03/13/2023 Weight 195 lbs 03/13/2023 BMI 27.19 kg/m2 03/13/2023 Encounters Encounter Location Date Provider Diagnosis On License Of [facility] [address] [facility] [address] [facility] [address] [place] [address] 10/23/2022 [facility]rology [facility] [address] [facility] [address] [facility] [address] [place] [address] 11/28/2022 Barrera Ashford CKD (chronic kidney disease) stage 4, GFR 15-29 ml/min N18.4 ; Metabolic acidosis E87.2 ; Hypoalbuminemia E88.09 ; Hyperphosphatemia E83.39 ; Iron deficiency anemia, unspecified iron deficiency anemia type D50.9 ; Anemia D64.9 ; FRANCISCO J (acute kidney injury) N17.9 ; Chronic kidney disease due to diabetes mellitus E11.22 and Anemia in chronic kidney disease D63.1 [facility] [address] [facility] [address] [facility] [address] [place] [address] 01/09/2023 Barrera [facility] [address] [facility] [address] [facility] [address] [place] [address] 02/01/2023 Barrera Ashford Chronic kidney disea se due to diabetes [...] Chronic metabolic acidosis E87.22 and Hyperuricemia E79.0 [facility] [address] [address] [facility] [address] [place] [address] 02/15/2023 Barrera [facility] [address] [facility] [address] [facility] [address] [place] [address] 03/13/2023 Barrera Ashford Chronic kidney disea se due [...] secondary to inadequate dietary iron intake D50.8 On License Of [facility] [address] [place] [address] 07/31/2023 Barrera Ashford Anemia D64.9 ; CKD (chronic kidney disease) stage 4, GFR 15-29 ml/min N18.4 and Anemia in chronic kidney disease D63.1 On License Of [facility] [address] [place] [address] 12/13/2022 Barrera Dejon Chronic kidney disea se due [...] Assessment Notes Treatment Notes Treatment Clinical Notes 12/13/2022 Hypertensive chronic kidney disease with stage 1 through stage 4 chronic kidney disease, or unspecified chronic kidney disease (ICD-10 - I12.9) 12/13/2022 Chronic kidney disease due to type 1 diabetes mellitus (ICD-10 - E10.22) 11/28/2022 CKD (chronic kidney disease) stage 4, GFR 15-29 ml/min (ICD-10 - N18.4) 03/13/2023 Hypertensive chronic kidney disease with stage 1 through stage 4 chronic kidney disease, or unspecified chronic kidney disease (ICD-10 - I12.9) 03/13/2023 Chronic kidney disease due to type 1 diabetes mellitus (ICD-10 - E10.22) 02/01/2023 Chronic kidney disease due to diabetes mellitus (ICD-10 - E11.22) 07/31/2023 Anemia (ICD-10 - D64.9) 07/31/2023 CKD (chronic kidney disease) stage 4, GFR 15-29 ml/min (ICD-10 - N18.4) 03/13/2023 Chronic kidney disease, stage IV (severe) (ICD-10 - N18.4) 02/01/2023 Hypertensive chronic kidney disease with stage 1 through stage 4 chronic kidney disease, or unspecified chronic kidney disease (ICD-10 - I12.9) 12/13/2022 Chronic kidney disease, stage IV (severe) (ICD-10 - N18.4) 11/28/2022 Metabolic acidosis (ICD-10 - E87.2) 03/13/2023 Anemia in chronic kidney disease (ICD-10 - D63.1) 11/28/2022 Hypoalbuminemia (ICD-10 - E88.09) 12/13/2022 Hypoalbuminemia (ICD-10 - E88.09) 02/01/2023 Chronic kidney disease, stage IV (severe) (ICD-10 - N18.4) 07/31/2023 Anemia in chronic kidney disease (ICD-10 - D63.1) 02/01/2023 Hypoalbuminemia (ICD-10 - E88.09) 12/13/2022 Nephrotic range proteinuria (ICD-10 - R80.9) 11/28/2022 Hyperphosphatemia (ICD-10 - E83.39) 03/13/2023 Iron deficiency anemia, unspecified iron deficiency anemia type (ICD-10 - D50.9) 03/13/2023 Bilateral leg edema (ICD-10 - R60.0) 12/13/2022 Hyperphosphatemia (ICD-10 - E83.39) 11/28/2022 Iron deficiency anemia, unspecified iron deficiency anemia type (ICD-10 - D50.9) 02/01/2023 Hyperphosphatemia (ICD-10 - E83.39) 02/01/2023 Nephrotic range proteinuria (ICD-10 - R80.9) 12/13/2022 Anemia in chronic kidney disease (ICD-10 - D63.1) 03/13/2023 Hypoalbuminemia (ICD-10 - E88.09) 11/28/2022 Anemia (ICD-10 - D64.9) 12/13/2022 Iron deficiency anemia, unspecified iron deficiency anemia type (ICD-10 - D50.9) 11/28/2022 FRANCISCO J (acute kidney injury) (ICD-10 - N17.9) 03/13/2023 Chronic metabolic acidosis (ICD-10 - E87.22) 02/01/2023 Anemia in chronic kidney disease (ICD-10 - D63.1) 02/01/2023 Iron deficiency anemia, unspecified iron deficiency anemia type (ICD-10 - D50.9) 12/13/2022 Chronic metabolic acidosis (ICD-10 - E87.22) 11/28/2022 Chronic kidney disease due to diabetes mellitus (ICD-10 - E11.22) 03/13/2023 Hyperuricemia (ICD-1 0 - E79.0) 03/13/2023 Nephrotic range proteinuria (ICD-10 - R80.9) 11/28/2022 Anemia in chronic kidney disease (ICD-10 - D63.1) 12/13/2022 Hyperuricemia (ICD-1 0 - E79.0) 02/01/2023 Chronic metabolic acidosis (ICD-10 - E87.22) 02/01/2023 Hyperuricemia (ICD-1 0 - E79.0) 12/13/2022 Pharmacologic therap y (ICD-10 - Z79.899) 03/13/2023 Pharmacologic therap y (ICD-10 - Z79.899) 03/13/2023 Former smoker (ICD-1 0 - Z87.891) 12/13/2022 [...] and it is both accurate and complete. 03/13/2023 Other Increase Bumex to 2 mg [...] Pending Test Test Name Order Date Albumin 98235 05/03/2020 Basic Metabolic Panel 76735 05/03/2020 Ferritin 91217 05/03/2020 Iron Binding Capacity Total 72563 2019 Iron Level 49278 05/03/2020 Phosphorus (B) 24588 05/03/2020 Protein (U) Random 58028 05/03/2020 Uric Acid (B) 18519 05/03/2020 Creatinine (U) 73241 05/03/2020 UA Reflex Micro, Reflex Cult 29979, 8101 5, 15313 05/03/2020 PTH Intact 02532 05/03/2020 Albumin 36773 12/29/2020 Basic Metabolic Panel 03140 12/29/2020 Ferritin 44658 12/29/2020 Hemoglobin 56394 12/29/2020 Magnesium (B) 31654 12/29/2020 Phosphorus (B) 70505 12/29/2020 Protein (U) Random 81944 12/29/2020 Uric Acid (B) 07070 12/29/2020 Creatinine (U) 62130 12/29/2020 UA Reflex Micro, Reflex Cult 37906, 8101 5, 69407 12/29/2020 PTH Intact 27536 12/29/2020 % Iron Saturation (Fe & TIBC)--87722,835 50 12/29/2020 Albumin 73182 11/28/2022 Basic Metabolic Panel 84446 11/28/2022 Ferritin 02455 11/28/2022 Hemoglobin 94952 11/28/2022 Iron Binding Capacity Total 33345 2022 Iron Level 95664 11/28/2022 Magnesium (B) 65424 11/28/2022 Phosphorus (B) 64178 11/28/2022 Protein (U) Random 97915 11/28/2022 Uric Acid (B) 17786 11/28/2022 Creatinine (U) 86330 11/28/2022 UA Reflex Micro, Reflex Cult 83075, 8101 5, 42877 11/28/2022 PTH Intact 41783 11/28/2022 % Iron Saturation (Fe & TIBC)--06039,835 50 11/28/2022 Future Test Test Name Order Date Basic Metabolic Panel -- 63051 Creatinine Urine -- 40495 01/25/2022 Ferritin -- 11518 01/25/2022 Iron Binding Capacity Total -- 18443 04/2022 Iron Level -- 03254 01/25/2022 Magnesium Level -- 75251 01/25/2022 Phosphorus Level -- 98341 01/25/2022 Protein Urine -- 70031 01/25/2022 UA Reflex -- 04269 01/25/2022 Uric Acid -- 86812 01/25/2022 PTH Intact--96640 01/25/2022 Hemoglobin 19703 01/25/2022 Albumin Serum--77826 01/25/2022 Albumin 39197 04/26/2022 Basic Metabolic Panel 61513 04/26/2022 Ferritin 57439 04/26/2022 Hemoglobin 16292 04/26/2022 Iron Binding Capacity Total 74331 2021 Iron Level 05469 04/26/2022 Magnesium (B) 09079 04/26/2022 Phosphorus (B) 21755 04/26/2022 Protein (U) Random 39681 04/26/2022 Uric Acid (B) 80845 04/26/2022 Creatinine (U) 17168 04/26/2022 UA Reflex Micro, Reflex Cult 96577, 8101 5, 26310 04/26/2022 Basic Metabolic Panel 47755 07/03/2022 UA Without Micro-Auto 41000 02/27/2023 Basic Metabolic Panel 78262 02/27/2023 Ferritin 37849 02/27/2023 Hemoglobin 82499 02/27/2023 Iron Binding Capacity Total 93699 2022 Iron Level 19882 02/27/2023 Magnesium (B) 25154 02/27/2023 Phosphorus (B) 73921 02/27/2023 Protein (U) Random 30173 02/27/2023 Uric Acid (B) 73043 02/27/2023 Microalbumin (U) Random 35541 02/27/2023 Creatinine (U) 56444 02/27/2023 PTH Intact 55472 02/27/2023 Albumin 69920 07/31/2023 Basic Metabolic Panel 83180 07/31/2023 Ferritin 22997 07/31/2023 Hemoglobin 06813 07/31/2023 Iron Binding Capacity Total 48251 2022 Iron Level 54446 07/31/2023 Magnesium (B) 91463 07/31/2023 Protein (U) Random 39391 07/31/2023 Uric Acid (B) 84700 07/31/2023 Creatinine (U) 34791 07/31/2023 UA Reflex Micro, Reflex Cult 60928, 8101 5, 00019 07/31/2023 PTH Intact 36653 07/31/2023 Insurance Providers Payer Name Payer Address Payer Phone Subscriber Number Group Number Insured Name Patient Relationship to Insured Coverage Start Date Coverage End Date [employer] Medicare Advantage HMO [address] [address] [place] [address] [id number] Matthew Barrios Self - patient is the insured [place] Medicaid [address] [place] [address] [id number] Matthew Barrios Self - patient is the insured [place] Medicare [address] [place] [id number] Matthew Barrios Self - patient is the insured MEDICAL (GENERAL) HISTORY Medical History History ICD Code Type I Diabeties Hypertension Chronic kidney disease, stage IV Stroke COVID (07/2020) PAD Proteinuria Surgical History Surgery Date(Month/Year) right below the knee ampuation cholecystectomy appendectomy cataract removal Hospitalization History Reason Date(Month/Year) see surgical
--- OUTSIDE RECORDS SUMMARY | 2023-09-16 06:26 | XMS_ITS ---
Author Name Claudia Ambrocio Address [address] [id number] Phone [phone] Organization [facility] e, NA DOCUMENT DISCLAIMER Multiple document versions may exist, please be sure you review the latest version. The information in the [facility] Progress Note Document represents a providers documented clinical note containing certain health and medical information. It may not contain the complete medical history for the patient and should be independently verified. The represented time in the document is Eastern Time PROVIDER ROUNDING NOTE COMPREHENSIVE Patient:?Matthew?Denis,?1965,?58y,?M Dialysis?Location:?[facility] Attending?Flagsetter:?Heather?José Service?Date:?09/09/2023 Service?Provider:?Claudia?Cristóbal,? I?met?face?to?face?with?the?patient?today. OVERVIEW The?patient?presented?with?[facility]?on?dialysis Primary?cause?of?renal?failure:?Type?2?diabetes?mellitus&#16 0;with?diabetic?chronic?kidney?disease Medications?and?labs?reviewed. HOME?MEDICATIONS Home?Medications:? ??calcium?acetate?667?mg,?by?mouth,?Take?1?tablet& #160;three?times?a?day?with?meals?take?1?with?snacks Allergies:? ??furosemide,?MORPHINE,?trazodone DIALYSIS?PRESCRIPTION ??IHD?3x?Week?Start?date:?08/31/23 ??Dialyzer:?180NRe?Optiflux ??BFR:?450 ??DFR:?Autoflow?1.5 ??Potassium:?2.0 ??Sodium:?138 ??EDW:?79 ??Duration:?3:30 ??Calcium:?2.5 ??Bicarb:?35 ??Rx?updated?on:?08/31/2023 TREATMENT?ASSESSMENT Comments:?hold?BP?meds?on?HD?days?to?allow?us?to get?UF? Blood?pressure?controlled.?Medications?adjusted.? BP?Sit?Pre ??09/07/2023:?120/61 ??09/05/2023:?113/55 ??09/03/2023:?132/94 BP?Sit?Post ??09/07/2023:?122/56 ??09/05/2023:?119/60 ??09/03/2023:?131/103 Tx?Duration ??09/07/2023:?3:30 ??09/05/2023:?3:43 ??09/03/2023:?3:37 Missed?Treatments 0?-?last?30?days 0?-?last?60?days FLUID?ASSESSMENT Comments:?aggressive?UF?and?lower?EDW?as?able Fluid?status?not?acceptable.?Optimal?weight?discussed.?Diet? reviewed?with?patient.? EDW?(kg) ??09/07/2023:?79.0 ??09/05/2023:?79.0 ??09/03/2023:?79.0 Weight?Pre?(kg) ??09/07/2023:?82.6 ??09/05/2023:?81.4 ??09/03/2023:?82.4 Weight?Post?(kg) ??09/07/2023:?79.4 ??09/05/2023:?80.4 ??09/03/2023:?79.8 PWV?(kg) ??09/07/2023:?0.4 ??09/05/2023:?1.4 ??09/03/2023:?0.8 UF?Rate?(mL/kg/hr) ??09/07/2023:?11.5 ??09/05/2023:?3.3 ??09/03/2023:?9 ADEQUACY?ASSESSMENT Adequacy?target?met.?Prescription?compliance?acceptable.?No?changes?indicated.? spKt/V,?URR ??09/03/2023:?1.79,?79.0 ??08/29/2023:?1.31,?69.0 ACCESS?ASSESSMENT ??Access?Type:?CVCatheter ??Access?SubType:?Tunneled ??Access?Status:?Active?(In?Use)?-?08/28/2023 ??Access?Location:?Chest ??Placed:?06/19/2023 Vascular?access?reviewed.?Current?access?is?temporary?and?re ferral?has?been?made?for?fistula/graft?placement. ANEMIA?ASSESSMENT Medications?adjusted.?Treatment?protocol?ordered.? HGB,?TSAT ??09/05/2023:?7.9,?- ??08/29/2023:?9.3,?10.0 ?? Ferritin ??08/29/2023:?515.0 Iron?Sucrose?(Venofer)?(mg) ??09/07/2023:?100 ??09/05/2023:?100 ??09/03/2023:?100 BMM?ASSESSMENT PTH?controlled.?Calcium?controlled.?Phosphorus?elevated.?Referred&#160 ;to?dietitian.? Phosphorus,?Calcium ??08/29/2023:?5.7,?8.7 ?? PTH,?Intact ??08/29/2023:?42.0 NUTRITION?ASSESSMENT Potassium?controlled.?Albumin?below?goal.?Diet?reviewed?with&#160 ;patient.?Referred?to?dietitian.? Albumin,?Potassium ??08/29/2023:?2.7,?5.5 ?? eNPCR ??09/03/2023:?0.49 PHYSICAL?EXAM Exam?Performed.?Vital?Signs?Reviewed.?CV?-?Blood?pressure&#1 60;noted.?EXT?-?2+?edema. DIAGNOSIS Chief?Complaint:?N18.6?End?stage?renal?disease Patient?is?stable.?Patient?discussed?with?nursing. Patient?data?updated?09/09/2023?at?1:47?PM Signed?By:?Cristóbal,?Claudia,???on?09/09/2023?1:50:46?PM END OF DOCUMENT
[2023-09-16 06:56] LABS: Glucose Point of Care 105 mg/dL (70-110)
--- NOTE | 2023-09-16 09:30 | P.PN_ITS ---
Subjective Subjective: Matthew reports he feels little bit better than on admission. He reports he has been coughing lately. He denies any chest pain. I discussed with the nursing facility his recent care. They report 3 to 4 days ago he started requiring some oxygen. There has not been any COVID on his follow-up. He does aspirate, refuses nectar thick liquids, and often lays flat when eating and drinking. Medications: Reviewed: Yes Vitals/I&O/Wt Last Vital Signs Temp 98.1 F 09/16/23 07:42 Pulse 86 09/16/23 08:20 Resp 14 09/16/23 08:00 BP 124/74 09/16/23 07:42 Pulse Ox 100 09/16/23 08:20 O2 Del Method BiPAP 09/16/23 08:00 O2 Flow Rate 70 09/16/23 03:43 FiO2 50 09/16/23 08:35 09/15/23 09/16/23 09/16/23 22:59 06:59 14:59 Intake Total 300 / 300 Output Total 450 / 450 Balance -150 / -150 Weight last 48 hrs Weight 80.603 kg Weight 83.143 kg Weight 79 kg Physical Exam Narrative: General exam is a white male, on BiPAP, in no distress currently on the BiPAP Neck is supple no lymphadenopathy thyromegaly Cardiovascular regular rate and rhythm without murmur Lungs coarse bilaterally right greater than left Abdomen is soft with positive bowel sounds, nontender Extremities no cyanosis clubbing. Trace edema is noted. Amputation noted. Urinary Catheter Management: Reed: Cath Placed During This Visit: yes Reason for Continuing Indwelling Catheter: Assist healing open wound Urinary Catheter Date of Insertion: 09/16/23 Urinary Catheter Time of Insertion: 01:58 Data 09/16/23 04:20 09/16/23 04:20 Other Labs: MRSA PCR is pending I reviewed his chest x-ray demonstrating right effusion, likely pneumonia and interstitial edema Blood cultures were collected I reviewed his EKG which demonstrated sinus rhythm, left axis deviation, frequent premature beats, nonspecific ST-T wave changes I have ordered a COVID PCR and influenza CT chest without contrast has been ordered and pending Micro: Microbiology 09/15/23 23:35 Blood Culture - Preliminary Blood SPECIMEN COLLECTED 09/15/23 23:40 Blood Culture - Preliminary Blood SPECIMEN COLLECTED A&P Assessment and plan (1) Respiratory failure: Patient presents with acute hypoxic respiratory failure He is currently requiring BiPAP. Try to wean as tolerated. This is multifactorial. This may be secondary to his pneumonia, or heart failure with right pleural effusion Request records from [facility] from hospitalization previously there (2) Pneumonia: Patient appears to have pneumonia Continue cefepime, vancomycin, Zosyn Await sputum culture Check COVID PCR and influenza CBC, CMP in the morning He appears to have a right pleural effusion on x-ray. This could be related to pneumonia, or perhaps CHF. CT is pending to delineate if effusion is signif icant enough to perform thoracentesis. Eliquis is on hold currently. (3) Congestive heart failure: Patient with history of congestive heart failure Last echo poor quality, LV mildly reduced This should improve with hemodialysis (4) CKD (chronic kidney disease), stage V: Patient with end-stage renal disease, receiving hemodialysis through dialysis catheter right IJ. Nephrology has been consulted, intention to give dialysis today (5) Diabetes: Continue long-acting insulin, reduced amount Sliding scale insulin Speech therapy consultation Aspiration precautions (6) Afib: Hold anticoagulation, possible procedure Continue amiodarone Plan Sacral decubitus. I have alerted nursing that I want to be present when they change the bandage so I can see if this is contributing to the patient's current illness. At that time I will determine if wound care consultation is needed Multiple other medical problems as outlined in past medical history SCDs for DVT prophylaxis currently, anticoagulation contraindicated as procedure could be performed today, thoracentesis Attestations Medical Necessity Statement*: Needs continued hospital stay for IV antibiotics related to pneumonia, further evaluation of pleural effusion and respiratory failure Diagnoses Respiratory failure J96.90 Pneumonia J18.9 Congestive heart failure I50.9 CKD (chronic kidney disease), stage V N18.5 Diabetes E11.9 Afib I48.91 Time Spent (min) 39
[2023-09-16] MEDS: oxyCODONE 5 mg IR Tab/Cap 10 MG PO ×2 (10:38→19:27)
[2023-09-16] MEDS: cefepime 2,000 MG in sodium chloride 0.9% (plus) 50 ML 100 MG IV ×2 (10:39→21:54)
[2023-09-16] MEDS: ipratropium-albuterol 3 mL Neb INHALATION ×2 (10:42→21:17)
[2023-09-16 11:16] LABS: Influenza A by IFA negative (Negative); Influenza B by IFA negative (Negative)
[2023-09-16 11:33] LABS: Glucose Point of Care 72 mg/dL (70-110)
--- NOTE | 2023-09-16 11:53 | CT_ITS ---
WS: [id number] CT CHEST TECHNIQUE: Noncontrast CT of the chest with coronal and sagittal reformatted images. CLINICAL INFORMATION: HAP, hypoxia COMPARISON: 06/08/2023 DLP: 562.[address] scans at [facility] use at least one of these dose optimization techniques: automated e xposure control; mA and/or kV adjustment per patient size (includes targeted exams where dose is matc hed to clinical indication); or iterative reconstruction. FINDINGS: Small bilateral pleural effusions with compressive atelectasis in the lung bases. Shallow inspiration . Fluid extends along the RIGHT azygous fissure. Interstitial infiltrates in the lung bases RIGHT gre ater than LEFT. New subtotal consolidation with calcification in the lingula. Patchy micronodular and interstitial infiltrates in the RIGHT upper lobe. Reactive mediastinal and parabronchial lymph nodes . Mild diffuse body wall anasarca. Atrophic kidneys. Splenic artery calcification. Normal GE junction. Mild thoracic curve. Mild thoraci c kyphosis. RIGHT central venous catheter with tip in the distal SVC. Coronary calcification. Diffuse heterogeneous increased attenuation in the lung bases may be due to aspiration, pulmonary al veolar microlithiasis or end-stage renal disease. IMPRESSION: 1. Small bilateral pleural effusions RIGHT greater than LEFT with compressive atelectasis and air br onchograms in the RIGHT middle lobe and RIGHT lower lobe. 2. Compressive atelectasis LEFT lower lobe. 3. New area of subtotal consolidation in the lingula with associated calcifications. 4. Micronodular interstitial infiltrates in the lower lobes bilaterally and RIGHT upper lobe suspici ous for pneumonia. Recommend correlation for aspiration. 5. Diffuse heterogeneous increased attenuation in the lung bases may be due to aspiration, pulmonary alveolar microlithiasis or end-stage renal disease with nonmalignant metastatic calcification.
[2023-09-16 11:55] LABS: Hepatitis B Core AB, Total Non-Reactive (Nonreactive); Hepatitis B Surface AB 107.4 (11.5-1000); Hepatitis B Surface Antigen Non-Reactive (Nonreactive)
[2023-09-16 12:43] LABS: Adenovirus Not Detected (NOT DETECT); Chlamydia Pneumoniae Not Detected (NOT DETECT); Coronavirus 229E,HKU1,NL63,OC4 Not Detected (NOT DETECT); Human Metapneumovirus Not Detected (NOT DETECT); Human Rhinovirus/Enterovirus Not Detected (NOT DETECT); Influenza A Not Detected (NOT DETECT); Influenza A H1 Not Detected (NOT DETECT); Influenza A H1-2009 Not Detected (NOT DETECT); Influenza A H3 Not Detected (NOT DETECT); Influenza B Not Detected (NOT DETECT); Mycoplasma Pneumoniae Not Detected (NOT DETECT); Parainfluenza Virus Type 1 Not Detected (NOT DETECT); Parainfluenza Virus Type 2 Not Detected (NOT DETECT); Parainfluenza Virus Type 3 Not Detected (NOT DETECT); Parainfluenza Virus Type 4 Not Detected (NOT DETECT); Respiratory Syncytial Virus A Not Detected (NOT DETECT); Respiratory Syncytial Virus B Not Detected (NOT DETECT); SARS-COV-2 Not Detected (NOT DETECT)
--- NOTE | 2023-09-16 14:10 | PM.CONSULT ---
Providers/Reason For Consult Consulting Physician/Specialty*: kommana/Nephrology Reason for Consult*: ESRD Attending Physician: Octaviano Kat MD Primary Care Provider: César Gallegos DO History of Present Illness History of Present Illness Matthew Barrios Jr is a 58 year old male With past medical history of end-stage renal disease on dialysis per Saturday, was sent from [facility] due to shortness of breath and hypoxia. Patient has been using 3 to 4 L oxygen recently. Other past medical history significant for hypertension and diabetes, has diabetic and ostomy due to stage IV decubitus wound. Lab data significant for hemoglobin of 7.4, potassium was low at 2.8, creatinine 2.9. BNP elevated greater than 70,000. Chest x-ray showed pulmonary edema, right middle lobe pneumonia possibly, moderate to large right pleural effusion. Patient currently is on 5 L O2. Review of Systems Narrative: Other ROS Negative Medications/Allergies Home Medications Medication Instructions Recorded Confirmed Last Taken Type atorvastatin 80 mg tablet 80 mg PO BEDTIME 10/05/20 09/16/23 06/01/23 History albuterol sulfate 90 mcg/actuation 2 puff inhalation Q6H PRN 05/06/23 09/16/23 Unknown History aerosol inhaler Shortness Of Breath aspirin 81 mg tablet,delayed 81 mg PO BEDTIME 05/06/23 09/16/23 06/02/23 History release insulin lispro 100 unit/mL See Rx Instructions .Route .COMPLEX 05/06/23 09/16/23 06/02/23 History subcutaneous pen umeclidinium 62.5 mcg/actuation 1 inh inhalation DAILY 05/06/23 09/16/23 06/02/23 History blister powder for inhalation (Incruse Ellipta) insulin glargine 100 unit/mL (3 14 unit SUBCUT BEDTIME 05/20/23 09/16/23 06/02/23 History mL) subcutaneous pen (Lantus Solostar U-100 Insulin) acetaminophen 325 mg tablet 650 mg PO QID PRN Pain 06/02/23 09/16/23 Unknown History bisacodyl 10 mg rectal suppository 10 mg IN DAILY PRN Constipation 06/02/23 09/16/23 Unknown History (Dulcolax (bisacodyl)) bisacodyl 5 mg tablet,delayed 5 mg PO DAILY PRN Constipation 06/02/23 09/16/23 Unknown History release (Dulcolax (bisacodyl)) amiodarone 200 mg tablet 200 mg PO DAILY 09/16/23 09/16/23 Unknown History apixaban 2.5 mg tablet (Eliquis) 2.5 mg PO DAILY 09/16/23 09/16/23 Unknown History calcium acetate(phosphat bind) 667 667 mg PO TID 09/16/23 09/16/23 Unknown History mg capsule calcium carbonate 500 mg calcium 500 mg PO BID PRN Heartburn 09/16/23 09/16/23 Unknown History (1,250 mg) chewable tablet clopidogrel 75 mg tablet 75 mg PO DAILY 09/16/23 09/16/23 Unknown History collagenase clostridium histo. 250 1 applic topical DAILY PRN Wound 09/16/23 09/16/23 Unknown History unit/gram topical ointment (Santyl) Care dimethicone 1.3 % topical cream 1 applic topical BID 09/16/23 09/16/23 Unknown History docusate sodium 100 mg capsule 200 mg PO DAILY 09/16/23 09/16/23 Unknown History honey 80 % topical gel (MediHoney 1 applic topical DAILY 09/16/23 09/16/23 Unknown History (honey)) insulin glargine 100 unit/mL 10 unit SUBCUT QAM 09/16/23 09/16/23 Unknown History subcutaneous solution ipratropium 0.5 mg-albuterol 3 mg 3 ml inhalation Q6H PRN Shortness 09/16/23 09/16/23 Unknown History (2.5 mg base)/3 mL nebulization Of Breath soln melatonin 3 mg capsule 3 mg PO DAILY 09/16/23 09/16/23 Unknown History metoprolol succinate 25 mg 25 mg PO DAILY 09/16/23 09/16/23 Unknown History tablet,extended release 24 hr prcoyhtx-aitlgeav-sxjvv acid 400 1 tab PO DAILY 09/16/23 09/16/23 Unknown History mcg-vit K 20 mcg-lycop 300 mcg tablet ondansetron 4 mg disintegrating 4 mg PO Q6H PRN Nausea 09/16/23 09/16/23 Unknown History tablet oxycodone 10 mg tablet 10 mg PO Q8H PRN Pain 09/16/23 09/16/23 Unknown History pantoprazole 40 mg tablet,delayed 40 mg PO DAILY 09/16/23 09/16/23 Unknown History release polyethylene glycol 3350 17 4 g PO BID 09/16/23 09/16/23 Unknown History gram/dose oral powder tamsulosin 0.4 mg capsule 0.8 mg PO BEDTIME 09/16/23 09/16/23 Unknown History Allergies Allergy/AdvReac Type Severity Reaction Status Date / Time furosemide [From Lasix] Allergy Intermediate kidney Verified 09/16/23 08:30 complications walnut Allergy Unknown inknown Verified 09/16/23 08:30 morphine Allergy ADR-Halluci Verified 09/16/23 08:30 nating trazodone Allergy RASH Verified 09/16/23 08:30 Current Medications Generic Name Dose Route Start Last Admin Trade Name Freq PRN Reason Stop Dose Admin Allopurinol 300 mg 09/16/23 06:00 09/16/23 06:07 Allopurinol 300 Mg Tablet PO 300 mg QAM KIM Administration Heparin Sodium (Porcine) 5,000 unit 09/16/23 00:51 09/16/23 01:50 Heparin 5,000 Unit/Ml Inj 1 Ml SUBCUT 5,000 unit Q12H KIM Administration Cefepime HCl 2,000 mg/ Sodium 50 mls @ 100 mls/hr 09/16/23 09:00 09/16/23 10:39 Chloride IV 100 mls/hr Q12H KIM Administration Protocol Piperacillin Sod/Tazobactam 50 mls @ 12.5 mls/hr 09/16/23 09:00 09/16/23 11:00 Sod 3.375 gm/ Sodium Chloride IV 12.5 mls/hr Q8H KIM Administration Protocol Insulin Human Lispro 0 unit 09/16/23 08:00 09/16/23 12:54 Insulin Lispro 100 Unit/1 Ml SUBCUT Not Given WM&BEDTIME KIM Protocol Oxycodone HCl 10 mg 09/16/23 10:10 09/16/23 10:38 Oxycodone 5 Mg Ir Tab/Cap PO 10 mg Q8H PRN Administration PAIN PFSH Acute PFSH: Medical History Chronic kidney disease Diabetes Graves disease History of tonsillitis Hypertension Surgical History History of amputation below knee History of cholecystectomy History of eye surgery History of knee surgery History of tonsillectomy and adenoidectomy Family History Grandmother Dementia Social History Smoking and tobacco/nicotine status: former use of tobacco/nicotine Alcohol intake: never Substance/Drug Use: never Vitals/I&O/Wt Last Vital Signs Temp 98.1 F 09/16/23 07:42 Pulse 83 09/16/23 10:46 Resp 19 H 09/16/23 10:38 BP 124/74 09/16/23 07:42 Pulse Ox 91 09/16/23 10:46 O2 Del Method Nasal Cannula 09/16/23 10:46 O2 Flow Rate 6 09/16/23 10:46 FiO2 50 09/16/23 08:35 09/15/23 09/16/23 09/16/23 22:59 06:59 14:59 Intake Total 300 / 300 240 / 240 Output Total 450 / 450 Balance -150 / -150 240 / 240 Weight last 48 hrs Weight 80.603 kg Weight 83.143 kg Weight 79 kg Physical Exam Narrative: awake , alert No distress L Decreased bs BI Urinary Catheter Management: Reed: Cath Placed During This Visit: yes Reason for Continuing Indwelling Catheter: Assist healing open wound Urinary Catheter Date of Insertion: 09/16/23 Urinary Catheter Time of Insertion: 01:58 Data 09/16/23 04:20 09/16/23 04:20 Micro: Microbiology 09/15/23 23:35 Blood Culture - Preliminary Blood SPECIMEN COLLECTED 09/15/23 23:40 Blood Culture - Preliminary Blood SPECIMEN COLLECTED A&P Assessment and plan (1) ESRD (end stage renal disease): Plan 1. End-stage renal disease: On TTS schedule as outpatient, last dialysis on Saturday but now has volume overload, has pulmonary edema with hypoxia. Plan for dialysis today after CT chest done, ultrafiltration as tolerated 2. Anemia: Will order TAVON 3. Acute on chronic respiratory failure: Multifactorial secondary to pneumonia and CHF exacerbation 4. History of sacral decubitus wound with diverting colostomy 5. Diabetes type 2 Patient evaluated using audiovisual cart. Time spent 40 minutes. Consult Attestations Medical Necessity Statement: Per medical team. Coding Level of Care Code Acute Code for Chg Fwd Diagnoses ESRD (end stage renal disease) N18.6
[2023-09-16] MEDS: heparin, porcine 1,000 unit/mL INJ 10 mL 1000 UNIT IV (14:39)
--- NOTE | 2023-09-16 14:51 | PC.SOCIAL ---
PG 2 IMM Provided Pg 2 IMM to pt. No questions voiced. Initialed, dated, & timed a copy & placed in chart.
[2023-09-16] MEDS: epoetin alfa 1000 Unit/0.05 mL (ESRD) 20000 UNIT SUBCUT (14:56)
--- NOTE | 2023-09-16 15:49 | PC.SLP ---
SLITTER AND CUTTER OPERATOR attempted to see patient, however, patient went to dialysis approximately half hour ago.
[2023-09-16] MEDS: albumin 12.5 GM/50 ML VIAL IV (15:57)
--- NOTE | 2023-09-16 16:42 | PC.NURSE ---
pt educated to sit up during eating and drinking pt stated he can't tolerate due to back pain. pt is on his right side and we HOB at 45degrees were pt can only tolerate.
--- NOTE | 2023-09-16 17:36 | PC.SOCIAL ---
PG 2 IMM Explained to pt Pg 2 IMM. No questions voiced. Provided pt a copy. Initialed, dated, & timed a copy & placed in chart.
[2023-09-16 19:01] LABS: Glucose Point of Care 90 mg/dL (70-110)
[2023-09-16] MEDS: budesonide 0.5 mg/2 mL Neb INHALATION (21:16)
[2023-09-16] MEDS: atorvastatin 40 mg Tablet 80 MG PO (21:53)
[2023-09-16] MEDS: tamsulosin 0.4 mg Capsule 0.8 MG PO (21:53)
[2023-09-16] MEDS: aspirin 81 mg EC Tablet PO (21:57)
[2023-09-16] MEDS: acetaminophen 500 mg Tablet PO (21:58)
[2023-09-16] MEDS: polyethylene glycol 3350 Pkt 17 gm PO (22:01)
[2023-09-16] MEDS: insulin lispro 100 unit/1 mL SUBCUT (22:11)
[2023-09-16 22:18] LABS: Glucose Point of Care 195 mg/dL (70-110)
[2023-09-16 22:28] LABS: Glucose Point of Care 198 mg/dL (70-110)
[2023-09-17] VITALS (63 sets, daily range): BP systolic 88–137; BP diastolic 35–89; PULSE 76–90; RESP 9–31; TEMP 36.7–37.1; O2SAT 86–100
[2023-09-17] MEDS: ipratropium-albuterol 3 mL Neb INHALATION ×4 (02:04→20:41)
[2023-09-17] MEDS: oxyCODONE 5 mg IR Tab/Cap 10 MG PO ×5 (02:30→23:57)
[2023-09-17] MEDS: piperacillin-tazobactam 3.375 GM in sodium chloride 0.9% (plus) 50 ML IV ×3 (02:51→20:34)
[2023-09-17] MEDS: insulin glargine 100 units/1 mL 14 UNIT SUBCUT (06:20)
[2023-09-17] MEDS: allopurinol 300 mg Tablet PO (06:28)
[2023-09-17 08:22] LABS: Glucose Point of Care 115 mg/dL (70-110)
[2023-09-17 08:27] LABS: Alanine Aminotransferase 13 U/L (0-41); Albumin Level 2.3 g/dL (3.5-5.2); Alkaline Phosphatase 108 U/L (40-130); Aspartate Amino Transferase 15 U/L (0-40); Blood Urea Nitrogen 15 mg/dL (6-20); Calcium 8.7 mg/dL (8.5-10.5); Carbon Dioxide 27 mmol/L (22-29); Chloride 97 mmol/L (98-107); Globulin 3.3 g/dL (1.3-4.6); Glomerular Filtration Rate 29.6 mL/min (90-130); Glucose 84 mg/dL (65-115); Magnesium 2.1 mg/dL (1.7-2.3); Osmolality Calculated 280 mOsm/kg (285-295); Sodium 135 mmol/L (136-145); Total Bilirubin 0.3 mg/dL (0.15-1.2); Total Protein 5.6 g/dL (6.6-8.7)
[2023-09-17] MEDS: budesonide 0.5 mg/2 mL Neb INHALATION ×2 (08:34→20:41)
--- NOTE | 2023-09-17 08:54 | P.CONIM_ITS ---
Providers/Reason For Consult 2 Consulting Physician/Specialty*: Nickie Kam, BASKET PERSON-BC/Wound Care Reason for Consult*: Wound evaluation and management Requesting Physician: Octaviano Kat MD Attending Physician: Octaviano Kat MD Primary Care Provider: César Gallegos DO History of Present Illness History of Present Illness Matthew Barrios is a 58 year old male who presents today with wounds to sacrum and gluteal folds bilaterally. He was admitted on 09/15/23 for community acquired pneumonia. Mr. Barrios has multiple comorbidities which include end stage renal disease. He is a hemodialysis patient on Saturday, , Saturday. Mr. Barrios spent several months at [facility] when after returned to [facility]. He received a diverting colostomy for his stage 4 sacral ulcer.He is 4-5L NC baseline. He has been wearing the BiPap on the Cardiac Stepdown unit. He does have a rodriguez catheter this visit. He is a right leg amputee and previously seen at [facility]. Assessment today reveals a stage 4 pressure ulcer to the sacrum. I do appreciate bone involvement, although it is more palpable than visible. There is adherent slough to the wound bed and a slight odor. He is having a large amount of serous drainage from the sacral ulcer. In addition there are gluteal fold wounds bilateral that are stage 3 pressure ulcers. These wounds have adherent slough to the wound bed as well. I recommend wet to dry BID with Dakin's 0.5% solution to all wounds. Dressings should be changed PRN if saturated. Offloading will be of the utmost importance to Mr. Barrios's healing. I recommend turning every two hours to offload the wounds. I recommend a pelvis CT without contrast to rule out osteomylitis and for further evaluation of the sacral ulcer. I do not recommend Mr. Barrios shower at this time, bed baths only. I will follow Mr. Barrios while inpatient. I do recommend that he follows up with wound care at time of discharge. I appreciate the opportunity to consult with Mr. Barrios. Review of Systems 2 Narrative: Other ROS Negative Medications/Allergies Home Medications Medication Instructions Recorded Confirmed Last Taken Type atorvastatin 80 mg tablet 80 mg PO BEDTIME 10/05/20 09/16/23 06/01/23 History albuterol sulfate 90 mcg/actuation 2 puff inhalation Q6H PRN 05/06/23 09/16/23 Unknown History aerosol inhaler Shortness Of Breath aspirin 81 mg tablet,delayed 81 mg PO BEDTIME 05/06/23 09/16/23 06/02/23 History release insulin lispro 100 unit/mL See Rx Instructions .Route .COMPLEX 05/06/23 09/16/23 06/02/23 History subcutaneous pen umeclidinium 62.5 mcg/actuation 1 inh inhalation DAILY 05/06/23 09/16/23 06/02/23 History blister powder for inhalation (Incruse Ellipta) insulin glargine 100 unit/mL (3 14 unit SUBCUT BEDTIME 05/20/23 09/16/23 06/02/23 History mL) subcutaneous pen (Lantus Solostar U-100 Insulin) acetaminophen 325 mg tablet 650 mg PO QID PRN Pain 06/02/23 09/16/23 Unknown History bisacodyl 10 mg rectal suppository 10 mg DE DAILY PRN Constipation 06/02/23 09/16/23 Unknown History (Dulcolax (bisacodyl)) bisacodyl 5 mg tablet,delayed 5 mg PO DAILY PRN Constipation 06/02/23 09/16/23 Unknown History release (Dulcolax (bisacodyl)) amiodarone 200 mg tablet 200 mg PO DAILY 09/16/23 09/16/23 Unknown History apixaban 2.5 mg tablet (Eliquis) 2.5 mg PO DAILY 09/16/23 09/16/23 Unknown History calcium acetate(phosphat bind) 667 667 mg PO TID 09/16/23 09/16/23 Unknown History mg capsule calcium carbonate 500 mg calcium 500 mg PO BID PRN Heartburn 09/16/23 09/16/23 Unknown History (1,250 mg) chewable tablet clopidogrel 75 mg tablet 75 mg PO DAILY 09/16/23 09/16/23 Unknown History collagenase clostridium histo. 250 1 applic topical DAILY PRN Wound 09/16/23 09/16/23 Unknown History unit/gram topical ointment (Santyl) Care dimethicone 1.3 % topical cream 1 applic topical BID 09/16/23 09/16/23 Unknown History docusate sodium 100 mg capsule 200 mg PO DAILY 09/16/23 09/16/23 Unknown History honey 80 % topical gel (MediHoney 1 applic topical DAILY 09/16/23 09/16/23 Unknown History (honey)) insulin glargine 100 unit/mL 10 unit SUBCUT QAM 09/16/23 09/16/23 Unknown History subcutaneous solution ipratropium 0.5 mg-albuterol 3 mg 3 ml inhalation Q6H PRN Shortness 09/16/23 09/16/23 Unknown History (2.5 mg base)/3 mL nebulization Of Breath soln melatonin 3 mg capsule 3 mg PO DAILY 09/16/23 09/16/23 Unknown History metoprolol succinate 25 mg 25 mg PO DAILY 09/16/23 09/16/23 Unknown History tablet,extended release 24 hr qffikejy-uendpwqr-cypqa acid 400 1 tab PO DAILY 09/16/23 09/16/23 Unknown History mcg-vit K 20 mcg-lycop 300 mcg tablet ondansetron 4 mg disintegrating 4 mg PO Q6H PRN Nausea 09/16/23 09/16/23 Unknown History tablet oxycodone 10 mg tablet 10 mg PO Q8H PRN Pain 09/16/23 09/16/23 Unknown History pantoprazole 40 mg tablet,delayed 40 mg PO DAILY 09/16/23 09/16/23 Unknown History release polyethylene glycol 3350 17 4 g PO BID 09/16/23 09/16/23 Unknown History gram/dose oral powder tamsulosin 0.4 mg capsule 0.8 mg PO BEDTIME 09/16/23 09/16/23 Unknown History Allergies Allergy/AdvReac Type Severity Reaction Status Date / Time furosemide [From Lasix] Allergy Intermediate kidney Verified 09/16/23 08:30 complications walnut Allergy Unknown inknown Verified 09/16/23 08:30 morphine Allergy ADR-Halluci Verified 09/16/23 08:30 nating trazodone Allergy RASH Verified 09/16/23 08:30 Current Medications Generic Name Dose Route Start Last Admin Trade Name Freq PRN Reason Stop Dose Admin Acetaminophen 500 mg 09/16/23 00:51 09/16/23 21:58 Acetaminophen 500 Mg Tablet PO 500 mg Q4H PRN Administration fever Albuterol/Ipratropium 3 ml 09/16/23 14:00 09/17/23 08:34 Ipratropium-Albuterol 3 Ml Neb INHALATION 3 ml Q6H.RESP KIM Administration Allopurinol 300 mg 09/16/23 06:00 09/16/23 06:07 Allopurinol 300 Mg Tablet PO 300 mg QAM KIM Administration Aspirin 81 mg 09/16/23 21:00 09/16/23 21:57 Aspirin 81 Mg Ec Tablet PO 81 mg BEDTIME KIM Administration Atorvastatin Calcium 80 mg 09/16/23 21:00 09/16/23 21:53 Atorvastatin 40 Mg Tablet PO 80 mg BEDTIME KIM Administration Budesonide 0.5 mg 09/16/23 20:00 09/17/23 08:34 Budesonide 0.5 Mg/2 Ml Neb INHALATION 0.5 mg BID.RESPIRATORY KIM Administration Heparin Sodium (Porcine) 5,000 unit 09/16/23 00:51 09/16/23 23:58 Heparin 5,000 Unit/Ml Inj 1 Ml SUBCUT 5,000 unit Q12H KIM Administration Vancomycin HCl 1,000 mg/ 250 mls @ 250 mls/hr 09/16/23 23:00 09/17/23 02:06 Sodium Chloride IV Infused Q24H KIM Infusion Protocol Cefepime HCl 2,000 mg/ Sodium 50 mls @ 100 mls/hr 09/16/23 09:00 09/16/23 22:29 Chloride IV Infused Q12H KIM Infusion Protocol Piperacillin Sod/Tazobactam 50 mls @ 12.5 mls/hr 09/16/23 09:00 09/17/23 02:51 Sod 3.375 gm/ Sodium Chloride IV 12.5 mls/hr Q8H KIM Administration Protocol Albumin Human 12.5 gm in 50 mls @ 60 mls/hr 09/16/23 09:23 09/16/23 19:50 Albumin IV Infused PRN PRN Infusion Hypotension and/or symptomatic Insulin Human Lispro 0 unit 09/16/23 08:00 09/16/23 22:11 Insulin Lispro 100 Unit/1 Ml SUBCUT 6 unit WM&BEDTIME KIM Administration Protocol Oxycodone HCl 10 mg 09/16/23 10:10 09/17/23 02:51 Oxycodone 5 Mg Ir Tab/Cap PO 10 mg Q8H PRN Administration PAIN Polyethylene Glycol 17 gm 09/16/23 18:00 09/16/23 22:01 Polyethylene Glycol 3350 Pkt 17 Gm PO 17 gm BID KIM Administration Tamsulosin HCl 0.8 mg 09/16/23 21:00 09/16/23 21:53 Tamsulosin 0.4 Mg Capsule PO 0.8 mg BEDTIME KIM Administration PFSH Acute 2 PFSH: Medical History Diabetes Chronic kidney disease Hypertension Graves disease History of tonsillitis Surgical History History of amputation below knee History of cholecystectomy History of knee surgery History of eye surgery History of tonsillectomy and adenoidectomy Family History Grandmother Dementia Social History Smoking and tobacco/nicotine status: former use of tobacco/nicotine Alcohol intake: never Substance/Drug Use: never Vitals/I&O/Wt Last Vital Signs Temp 98.5 F 09/17/23 00:11 Pulse 86 09/17/23 08:35 Resp 22 H 09/17/23 08:35 BP 88/42 09/17/23 00:11 Pulse Ox 86 L 09/17/23 08:35 O2 Del Method Nasal Cannula 09/17/23 08:35 O2 Flow Rate 50 09/17/23 02:01 FiO2 5 09/17/23 08:35 09/16/23 09/17/23 09/17/23 22:59 06:59 14:59 Intake Total 1480 / 1960 300 / 2260 Output Total 2893 / 2893 Balance -1413 / -933 300 / -633 Weight last 48 hrs Weight 81.2 kg Weight 80.603 kg Weight 83.143 kg Weight 79 kg Physical Exam 2 Narrative: General exam is a white male, on BiPAP Neck is supple no lymphadenopathy thyromegaly Cardiovascular regular rate and rhythm without murmur Lungs coarse bilaterally right greater than left Abdomen is soft with positive bowel sounds, nontender Extremities no cyanosis clubbing. Trace edema is noted. Amputation noted. Skin: WOUNDS: Yes wounds noted Urinary Catheter Management: Rodriguez: Cath Placed During This Visit: yes Reason for Continuing Indwelling Catheter: Assist healing open wound Urinary Catheter Date of Insertion: 09/16/23 Urinary Catheter Time of Insertion: 01:58 Data 09/17/23 03:55 09/17/23 03:55 Micro: Microbiology 09/16/23 19:52 Gram Stain - Final Sputum - Expectorated Sputum 09/15/23 23:35 Blood Culture - Preliminary Blood NEGATIVE TO DATE 09/15/23 23:40 Blood Culture - Preliminary Blood NEGATIVE TO DATE A&P Assessment and plan (1) Pressure ulcer of sacral region, stage 4: Stage 3 Pressure ulcer of sacrum with Adherent slough.[id number]. Bone is palpable more than visible. Large amount of serous drainage. Slight odor. BID dressing changes Wet to dry with Dakins 0.5% solution (2) Pressure ulcer of left buttock, stage 3: Stage three pressure ulcer of left gluteal fold. 3.5x1x0.1cm .Adherent slought to wound bed. BID dressing changes Wet to dry with Dakin's solution 0.5%. (3) Pressure ulcer of right buttock, stage 3: Stage three pressure ulcer of right gluteal fold. 3.5x4x0.1cm. Adherent slought to wound bed. BID dressing changes Wet to dry with Dakin's solution 0.5%. Consult Attestations 2 Medical Necessity Statement: Per medical team. Time Spent in Patient Care: Greater than 35 minutes (>than 50% of time spent in counselling and/or direct pt care on unit) . and Straight Forward Time for a total of 45 minutes, includes reviewing past or interval history, examining/interviewing patient, placing orders, updating patient/family/other support, discussing plan of care with staff, communicating with other healthcare providers, documenting encounter and coordinating care Other Coding Information Focused coding review requested Prolonged care (total time indicated above or notated here) Diagnoses Pressure ulcer of sacral region, stage 4 L89.154 Pressure ulcer of left buttock, stage 3 L89.323 Pressure ulcer of right buttock, stage 3 L89.313 Time Spent (min) 45 Wound Orders Wound Number 1: Stage 4 pressure ulcer to Sacrum. Adherent slough to wound bed. Bone involvement, more palpable than visible. Does Wound require Debridement?: No Duration: 14 Days Dressing change frequency: Twice Daily and Other (PRN if saturated ) Wound Cleansing: Saline Primary Wound Care Dressing: Wet to dry with Dakin's 0.5% solution Secondary Wound Care Dressing: ABD, and tape Bathing/Showering/Hygiene: Do not shower or bathe in tub. Sponge bath only. Off-Loading: Turn and reposition every 2 hours Wound Number 2: Stage 3 pressure ulcer to Left gluteal fold. Adherent slough to wound bed. Does Wound require Debridement?: No Duration: 14 Days Dressing change frequency: Twice Daily and Other (prn if saturated) Wound Cleansing: Saline Primary Wound Care Dressing: Wet to dry with Dakin's 0.5% solution Secondary Wound Care Dressing: ABD and metapore tape Bathing/Showering/Hygiene: Do not shower or bathe in tub. Sponge bath only. Off-Loading: Turn and reposition every 2 hours Wound Number 3: Stage 3 pressure ulcer to right gluteal fold . Adherent slough to wound bed. Does Wound require Debridement?: No Duration: 14 Days Dressing change frequency: Twice Daily and Other (PRN if saturated ) Wound Cleansing: Saline Primary Wound Care Dressing: Wet to dry with Dakin's 0.5% solution Secondary Wound Care Dressing: ABD and metapore tape Bathing/Showering/Hygiene: Do not shower or bathe in tub. Sponge bath only. Off-Loading: Turn and reposition every 2 hours
[2023-09-17 09:01] LABS: Anion Gap 14.8 (5-19); Potassium 3.8 mmol/L (3.5-5.1)
[2023-09-17 09:19] LABS: Basophils # 0.1 10^3/uL (0.0-0.1); Basophils % 0.3 %; Eosinophils # 0.2 10^3/uL (0.0-0.8); Eosinophils % 0.9 %; Hematocrit 24.6 % (37-53); Lymphocytes # 1.5 10^3/uL (0.8-4.8); Lymphocytes % 6.8 %; Mean Platelet Volume 8.8 fL (7.4-10.4); Monocytes # 1.3 10^3/uL (0.2-0.9); Monocytes % 5.9 %; Neutrophils # 18.14 10^3/uL (1.8-7.7); Neutrophils % 84.2 %; Nucleated Red Blood Cells % 0 %; Platelet Count 365 10^3/cmm (157-399); Red Blood Count 2.46 10^6/uL (3.85-5.65); Red Cell Distribution Width 18.7 % (12.1-15.1); White Blood Count 21.55 10^3/uL (3.29-11.43)
[2023-09-17] MEDS: amiodarone 200 mg Tablet PO (09:23)
[2023-09-17] MEDS: clopidogrel 75 mg Tablet PO (09:23)
[2023-09-17] MEDS: cefepime 2,000 MG in sodium chloride 0.9% (plus) 50 ML 100 MG IV ×2 (09:23→23:43)
[2023-09-17] MEDS: pantoprazole DR 40 mg Tablet PO (09:23)
[2023-09-17] MEDS: docusate sodium 100 mg Capsule 200 MG PO (09:23)
[2023-09-17] MEDS: metoprolol succinate ER (24 HR) 25 mg Tablet PO (09:23)
[2023-09-17] MEDS: polyethylene glycol 3350 Pkt 17 gm PO ×2 (09:24→17:54)
--- NOTE | 2023-09-17 09:47 | PC.CHAP ---
Pastoral Care Encounter/Spiritual Assessment Type of Contact [] Declined medium cycle salesperson visit [] Patient/Family/Request visit [] Outpatient visit [] Follow-up visit [] Physician referral [] Code/Alert [] Routine visit [] Staff referral [] Actively dying [] Patient sleeping [] Family support [] [] Out of room [] Palliative care [] [] Receiving care in room [] Pre-surgical visit [] Trauma [] Long length of stay [] ICU visit [] Other: Relational/Emotional Strength [] Patient feels connected with others/family/visitors/staff [x] Distress [x] Loneliness/isolation [] Abandonment Spirituality of Patient [] Person of [place] [] Attends Pentecostal of their [place] [] Believes in Prayer [] Reads Bible or Mosque materials [] There are Spiritual issues to be addressed Moderate Needs Teacher Interventions [] Prayer [] Active listening [x] Non-anxious presence [] Spiritual/emotional support [] Crisis/trauma care [] Spiritual counseling [] Bereavement support [] Provided bereavement packet [] Provided Bible/devotional materials [] Provided toy/stuffed animal, coloring book to patient or family member [] Provided Communion [] Anointing/Eleele [] Salvation [x] Completed spiritual assessment [] Other: Impact on Illness or Injury [x] Angry [] Fearful [x] Anxious [] Often cries [] Exhaustion [] Unable to work [] Unable to attend scientology [] Unable to walk/stand [] Unable to read [] Unable to drive [] Unable to eat/drink [] Unable to sleep [] Unable to be with family [] Patient intubated [] Other: Summary Time spent with patient 5 min
--- NOTE | 2023-09-17 10:21 | P.PN_ITS ---
Subjective 2 Subjective: feels better Medications: Reviewed: Yes Vitals/I&O/Wt Last Vital Signs Temp 98.0 F 09/17/23 08:55 Pulse 84 09/17/23 08:55 Resp 19 H 09/17/23 08:55 BP 88/52 09/17/23 08:55 Pulse Ox 91 09/17/23 08:55 O2 Del Method Simple Mask 09/17/23 08:55 O2 Flow Rate 50 09/17/23 02:01 FiO2 5 09/17/23 08:35 09/16/23 09/17/23 09/17/23 22:59 06:59 14:59 Intake Total 1480 / 1960 300 / 2260 100 / 100 Output Total 2893 / 2893 Balance -1413 / -933 300 / -633 100 / 100 Weight last 48 hrs Weight 81.2 kg Weight 80.603 kg Weight 83.143 kg Weight 79 kg Physical Exam 2 Narrative: awake , alert No distress L Decreased bs BI Urinary Catheter Management: Reed: Cath Placed During This Visit: yes Reason for Continuing Indwelling Catheter: Assist healing open wound Urinary Catheter Date of Insertion: 09/16/23 Urinary Catheter Time of Insertion: 01:58 Data 09/17/23 03:55 09/17/23 03:55 Micro: Microbiology 09/16/23 19:52 Gram Stain - Final Sputum - Expectorated Sputum 09/15/23 23:35 Blood Culture - Preliminary Blood NEGATIVE TO DATE 09/15/23 23:40 Blood Culture - Preliminary Blood NEGATIVE TO DATE A&P Assessment and plan (1) ESRD (end stage renal disease): Plan 1. End-stage renal disease: On TTS schedule as outpatient, last dialysis on Saturday but now has volume overload, has pulmonary edema with hypoxia. - s/p HD yesterday and plan fr HD again today 2. Anemia: Will order TAVON 3. Acute on chronic respiratory failure: Multifactorial secondary to pneumonia and CHF exacerbation 4. History of sacral decubitus wound with diverting colostomy 5. Diabetes type 2 Patient evaluated using audiovisual cart. Time spent 20 minutes. Attestations 2 Medical Necessity Statement*: per medicien team Coding Level of Care Code Acute Code for Chg Fwd Diagnoses ESRD (end stage renal disease) N18.6
[2023-09-17 12:52] LABS: Glucose Point of Care 199 mg/dL (70-110)
--- NOTE | 2023-09-17 12:54 | CT_ITS ---
WS: [id number] CT LUMBAR SPINE TECHNIQUE: Contrast-enhanced CT of the lumbar spine with coronal and sagittal reformatted images. CLINICAL INFORMATION: Rule out osteomylitis COMPARISON: None. DLP: 998.[address] scans at [facility] use at least one of these dose optimization techniques: automated e xposure control; mA and/or kV adjustment per patient size (includes targeted exams where dose is matc hed to clinical indication); or iterative reconstruction. FINDINGS: Mild lumbar curve. No acute compression. A few Schmorl's nodes in the lower thoracic and upper lumbar spine. No evidence of discitis or osteomyelitis. No high-grade central canal stenosis. Partially visualized pleural effusions. Bilateral renal cortical atrophy. Adrenal glands are normal. Vascular calcification. Sacral decubitus ulcer at the edge of the [id number] at the sacrococcygeal junction. Suggestion of erosive changes involving the underlying sacrum although extends off the [id number]. Recommend C T of the sacrum and coccyx in further evaluation. IMPRESSION: 1. Sacral decubitus ulcer at the edge of the [id number]. Suggestion of erosive changes involving the underlying distal sacrum at the sacrococcygeal junction although extends over the [id number]. Recommend CT of the sacrum and coccyx in further evaluation. This can be done without contrast no v isualized drainable abscess or fluid collection. 2. No evidence of discitis. Notified Dr. North HAYNES at 09/17/2023 3:12 PM.
[2023-09-17] MEDS: heparin 5,000 unit/mL INJ 1 mL 5000 UNIT SUBCUT (13:00)
[2023-09-17] MEDS: insulin lispro 100 unit/1 mL SUBCUT (13:01)
--- NOTE | 2023-09-17 13:36 | PM.PN ---
Subjective Subjective: Matthew feels like he is doing okay today. He had dialysis yesterday. He does not feel short of breath on the oxygen. He is still coughing some. Medications: Reviewed: Yes Vitals/I&O/Wt Last Vital Signs Temp 98.0 F 09/17/23 08:55 Pulse 84 09/17/23 08:55 Resp 19 H 09/17/23 08:55 BP 88/52 09/17/23 08:55 Pulse Ox 98 09/17/23 12:46 O2 Del Method Simple Mask 09/17/23 08:55 O2 Flow Rate 50 09/17/23 02:01 FiO2 45 09/17/23 12:46 09/16/23 09/17/23 09/17/23 22:59 06:59 14:59 Intake Total 1480 / 1960 300 / 2260 100 / 100 Output Total 2893 / 2893 Balance -1413 / -933 300 / -633 100 / 100 Weight last 48 hrs Weight 81.2 kg Weight 80.603 kg Weight 83.143 kg Weight 79 kg Physical Exam Narrative: General exam is a white male, on BiPAP Neck is supple no lymphadenopathy thyromegaly Cardiovascular regular rate and rhythm without murmur Lungs coarse bilaterally right greater than left Abdomen is soft with positive bowel sounds, nontender Extremities no cyanosis clubbing. Trace edema is noted. Amputation noted. Urinary Catheter Management: Reed: Cath Placed During This Visit: yes Reason for Continuing Indwelling Catheter: Assist healing open wound Urinary Catheter Date of Insertion: 09/16/23 Urinary Catheter Time of Insertion: 01:58 Data 09/17/23 03:55 09/17/23 03:55 Micro: Microbiology 09/16/23 19:52 Gram Stain - Final Sputum - Expectorated Sputum 09/15/23 23:35 Blood Culture - Preliminary Blood NEGATIVE TO DATE 09/15/23 23:40 Blood Culture - Preliminary Blood NEGATIVE TO DATE A&P Assessment and plan (1) Respiratory failure: Patient presents with acute hypoxic respiratory failure He is currently requiring BiPAP. Try to wean as tolerated. He has been able to stay off on 5 L for some of today. This is multifactorial. This may be secondary to his pneumonia, or heart failure Request records from [facility] from hospitalization previously there (2) Pneumonia: Patient appears to have pneumonia Continue cefepime, vancomycin, Zosyn Await sputum culture, Gram stain shows moderate white blood cells, few gram-negative rods and few gram-positive cocci MRSA PCR pending COVID PCR and influenza negative CBC, CMP in the morning He appears to have a right pleural effusion on x-ray. CT demonstrated some bilateral pleural effusions but relatively small. Significant consolidation was noted on the right. (3) Congestive heart failure: Patient with history of congestive heart failure Last echo poor quality, LV mildly reduced Appreciate nephrology intervention with dialysis (4) CKD (chronic kidney disease), stage V: Patient with end-stage renal disease, receiving hemodialysis through dialysis catheter right IJ. Nephrology has been consulted, intention to give dialysis today (5) Diabetes: Continue long-acting insulin, reduced amount Sliding scale insulin Speech therapy consultation Aspiration precautions (6) Afib: Continue amiodarone Plan Sacral decubitus. Wound care recommend CT, rule out osteomyelitis. Area is significantly tunneled from bone, stage IV Anemia, likely related to chronic kidney disease. Will go ahead and transfuse 1 unit of packed red blood cells. No evidence of ongoing bleeding. Multiple other medical problems as outlined in past medical history SCDs for DVT prophylaxis currently, Heparin for DVT prophylaxis Attestations Medical Necessity Statement*: Needs continued hospitalization for IV antibiotics related to pneumonia in this patient who has not yet improved, with concerns regarding sacral decub requiring CT scan, as well as requiring transfusion Diagnoses Respiratory failure J96.90 Pneumonia J18.9 Congestive heart failure I50.9 CKD (chronic kidney disease), stage V N18.5 Diabetes E11.9 Afib I48.91 Time Spent (min) 34
[2023-09-17] MEDS: iohexol 350 mg/mL 500 mL Btl (per mL) IV (14:28)
[2023-09-17 16:41] LABS: Glucose Point of Care 73 mg/dL (70-110)
[2023-09-17] MEDS: tamsulosin 0.4 mg Capsule 0.8 MG PO (21:04)
[2023-09-17] MEDS: aspirin 81 mg EC Tablet PO (21:04)
[2023-09-17] MEDS: atorvastatin 40 mg Tablet 80 MG PO (21:05)
[2023-09-17] MEDS: vancomycin 1,000 MG in sodium chloride 0.9% 250 ML 250 MG IV (23:43)
[2023-09-18] VITALS (38 sets, daily range): BP systolic 73–131; BP diastolic 38–69; PULSE 74–98; RESP 13–31; TEMP 36.4–37.1; O2SAT 80–100
[2023-09-18 00:05] LABS: Glucose Point of Care 134 mg/dL (70-110)
[2023-09-18] MEDS: heparin 5,000 unit/mL INJ 1 mL 5000 UNIT SUBCUT ×2 (01:31→13:27)
[2023-09-18] MEDS: ipratropium-albuterol 3 mL Neb INHALATION ×2 (02:28→14:54)
[2023-09-18] MEDS: piperacillin-tazobactam 3.375 GM in sodium chloride 0.9% (plus) 50 ML IV ×3 (04:09→19:45)
[2023-09-18 04:45] LABS: Basophils # 0.1 10^3/uL (0.0-0.1); Basophils % 0.3 %; Eosinophils # 0.1 10^3/uL (0.0-0.8); Eosinophils % 0.7 %; Hematocrit 27.2 % (37-53); Lymphocytes # 1.2 10^3/uL (0.8-4.8); Lymphocytes % 6.4 %; Mean Corpuscular HGB Conc 29.4 g/dL (30-55); Mean Corpuscular Volume 95.1 fl (82-101); Mean Platelet Volume 8.9 fL (7.4-10.4); Monocytes # 1.3 10^3/uL (0.2-0.9); Monocytes % 6.7 %; Neutrophils # 15.66 10^3/uL (1.8-7.7); Neutrophils % 83.2 %; Nucleated Red Blood Cells % 0 %; Platelet Count 346 10^3/cmm (157-399); Red Blood Count 2.86 10^6/uL (3.85-5.65); Red Cell Distribution Width 19.7 % (12.1-15.1); White Blood Count 18.84 10^3/uL (3.29-11.43)
[2023-09-18 05:07] LABS: Alanine Aminotransferase 12 U/L (0-41); Albumin Level 2.1 g/dL (3.5-5.2); Alkaline Phosphatase 106 U/L (40-130); Anion Gap 16.2 (5-19); Aspartate Amino Transferase 14 U/L (0-40); Blood Urea Nitrogen 21 mg/dL (6-20); Calcium 8.7 mg/dL (8.5-10.5); Carbon Dioxide 24 mmol/L (22-29); Chloride 97 mmol/L (98-107); Globulin 3.5 g/dL (1.3-4.6); Glomerular Filtration Rate 21.8 mL/min (90-130); Glucose 159 mg/dL (65-115); Osmolality Calculated 282 mOsm/kg (285-295); Potassium 4.2 mmol/L (3.5-5.1); Sodium 133 mmol/L (136-145); Total Bilirubin 0.3 mg/dL (0.15-1.2); Total Protein 5.6 g/dL (6.6-8.7)
[2023-09-18] MEDS: allopurinol 300 mg Tablet PO (06:08)
[2023-09-18] MEDS: oxyCODONE 5 mg IR Tab/Cap 10 MG PO ×4 (06:08→20:59)
[2023-09-18] MEDS: insulin glargine 100 units/1 mL 14 UNIT SUBCUT (07:12)
--- NOTE | 2023-09-18 07:45 | P.PN_ITS ---
Subjective 2 Subjective: Matthew reports he is doing okay. He is interactive. He is on an FiO2 of 50% on BiPAP. He reports his back hurts but he denies any significant issues breathing. Medications: Reviewed: Yes Vitals/I&O/Wt Last Vital Signs Temp 98.8 F 09/18/23 07:40 Pulse 85 09/18/23 07:40 Resp 21 H 09/18/23 07:40 BP 101/45 09/18/23 07:40 Pulse Ox 100 09/18/23 07:40 O2 Del Method CPAP 09/18/23 07:40 O2 Flow Rate 4 09/17/23 20:48 FiO2 50 09/18/23 04:15 09/17/23 09/18/23 09/18/23 22:59 06:59 14:59 Intake Total 400 / 500 100 / 600 250 / 250 Output Total 50 / 50 Balance 400 / 500 50 / 550 250 / 250 Weight last 48 hrs Weight 78.925 kg Weight 81.2 kg Physical Exam 2 Narrative: General exam is a white male, on BiPAP, somewhat difficult to understand Neck is supple no lymphadenopathy thyromegaly Cardiovascular regular rate and rhythm without murmur Lungs coarse bilaterally left sounds greater than right today Abdomen is soft with positive bowel sounds, nontender Extremities no cyanosis clubbing. Trace edema is noted. Amputation noted. Urinary Catheter Management: Reed: Cath Placed During This Visit: yes Reason for Continuing Indwelling Catheter: Not indwelling catheter Urinary Catheter Date of Insertion: 09/16/23 Urinary Catheter Time of Insertion: 01:58 Data 09/18/23 04:15 09/18/23 04:15 Micro: Microbiology 09/16/23 19:52 Gram Stain - Final Sputum - Expectorated Sputum A&P Assessment and plan (1) Respiratory failure: Patient presents with acute hypoxic respiratory failure He is using BiPAP at night. He has been able to come off it during the day. He was on 5 L yesterday. Hopefully this can improve further today. Add incentive spirometry. This is multifactorial. This may be secondary to his pneumonia, or heart failure Request records from [facility] from hospitalization previously there (2) Pneumonia: Patient appears to have pneumonia Continue cefepime, vancomycin, Zosyn Await sputum culture, Gram stain shows moderate white blood cells, few gram- negative rods and few gram-positive cocci MRSA PCR pending COVID PCR and influenza negative CBC, CMP in the morning He appears to have a right pleural effusion on x-ray. CT demonstrated some bilateral pleural effusions but relatively small. Significant consolidation was noted on the right. I think this is likely secondary to aspiration. Speech therapy is working with the patient. (3) Congestive heart failure: Patient with history of congestive heart failure Last echo poor quality, LV mildly reduced Appreciate nephrology intervention with dialysis (4) CKD (chronic kidney disease), stage V: Patient with end-stage renal disease, receiving hemodialysis through dialysis catheter right IJ. Appreciate nephrology consultation (5) Diabetes: Continue long-acting insulin, reduced amount Sliding scale insulin Speech therapy consultation Aspiration precautions (6) Afib: Continue amiodarone Plan Sacral decubitus. Wound care recommend CT, rule out osteomyelitis. Area is significantly tunneled from bone, stage IV. Repeat scan today with pelvis and sacrum to include all of decub. Anemia, likely related to chronic kidney disease. Transfuse 1 unit of packed red blood cells 09/18 . No evidence of ongoing bleeding. Multiple other medical problems as outlined in past medical history SCDs for DVT prophylaxis currently, Heparin for DVT prophylaxis Attestations 2 Medical Necessity Statement*: Needs continued hospital stay for IV antibiotics related to pneumonia, slow to improve insight in this patient still requiring quite a bit of oxygen. Diagnoses Respiratory failure J96.90 Pneumonia J18.9 Congestive heart failure I50.9 CKD (chronic kidney disease), stage V N18.5 Diabetes E11.9 Afib I48.91 Time Spent (min) 26
[2023-09-18 07:50] LABS: Glucose Point of Care 164 mg/dL (70-110)
--- NOTE | 2023-09-18 07:55 | P.PN_ITS ---
Subjective 2 Subjective: Mr. Barrios had no events overnight. He is wearing the BiPap in no distress. Drainage seems more controlled today to the sacral wound with the wet to dry dressing. Will continue with BID dressing changes and change PRN if saturated. Continue offloading maneuvers. Medications: Reviewed: Yes Vitals/I&O/Wt Last Vital Signs Temp 98.8 F 09/18/23 07:40 Pulse 85 09/18/23 07:40 Resp 21 H 09/18/23 07:40 BP 101/45 09/18/23 07:40 Pulse Ox 100 09/18/23 07:40 O2 Del Method CPAP 09/18/23 07:40 O2 Flow Rate 4 09/17/23 20:48 FiO2 50 09/18/23 04:15 09/17/23 09/18/23 09/18/23 22:59 06:59 14:59 Intake Total 400 / 500 100 / 600 250 / 250 Output Total 50 / 50 Balance 400 / 500 50 / 550 250 / 250 Weight last 48 hrs Weight 78.925 kg Weight 81.2 kg Physical Exam 2 Narrative: General exam is a white male, on BiPAP Neck is supple no lymphadenopathy thyromegaly Cardiovascular regular rate and rhythm without murmur Lungs coarse bilaterally right greater than left Abdomen is soft with positive bowel sounds, nontender Extremities no cyanosis clubbing. Trace edema is noted. Amputation noted. Skin: WOUNDS: Yes wounds noted Urinary Catheter Management: Reed: Cath Placed During This Visit: yes Reason for Continuing Indwelling Catheter: Not indwelling catheter Urinary Catheter Date of Insertion: 09/16/23 Urinary Catheter Time of Insertion: 01:58 Data 09/18/23 04:15 09/18/23 04:15 Micro: Microbiology 09/16/23 19:52 Gram Stain - Final Sputum - Expectorated Sputum A&P Assessment and plan (1) Pressure ulcer of sacral region, stage 4: Stage 3 Pressure ulcer of sacrum with Adherent slough.[id number]. Bone is palpable more than visible. Large amount of serous drainage. Slight odor. BID dressing changes Wet to dry with Dakins 0.5% solution (2) Pressure ulcer of left buttock, stage 3: Stage three pressure ulcer of left gluteal fold. 3.5x1x0.1cm .Adherent slought to wound bed. BID dressing changes Wet to dry with Dakin's solution 0.5%. (3) Pressure ulcer of right buttock, stage 3: Stage three pressure ulcer of right gluteal fold. 3.5x4x0.1cm. Adherent slought to wound bed. BID dressing changes Wet to dry with Dakin's solution 0.5%. Attestations 2 Medical Necessity Statement*: Needs continued hospital stay for IV antibiotics related to pneumonia, slow to improve insight in this patient still requiring quite a bit of oxygen, and wound care. Time Spent in Patient Care: 16 - 35 minutes (>than 50% of time sp ent in counselling and/or direct pt care on unit) . and Moderate Time for a total of 20 minutes, includes reviewing past or interval history, examining/interviewing patient, counseling patient/family/other support, updating patient/family/other support, discussing plan of care with staff, documenting encounter and coordinating care Other Coding Information Focused coding review requested Diagnoses Pressure ulcer of sacral region, stage 4 L89.154 Pressure ulcer of left buttock, stage 3 L89.323 Pressure ulcer of right buttock, stage 3 L89.313 Time Spent (min) 20
[2023-09-18] MEDS: heparin, porcine 1,000 unit/mL INJ 10 mL 1000 UNIT IV (08:55)
--- NOTE | 2023-09-18 09:59 | P.PN_ITS ---
Subjective 2 Subjective: getting hD Medications: Reviewed: Yes Vitals/I&O/Wt Last Vital Signs Temp 98.8 F 09/18/23 07:40 Pulse 85 09/18/23 08:30 Resp 23 H 09/18/23 08:30 BP 101/45 09/18/23 07:40 Pulse Ox 95 09/18/23 08:30 O2 Del Method BiPAP 09/18/23 08:30 O2 Flow Rate 4 09/17/23 20:48 FiO2 50 09/18/23 08:30 09/17/23 09/18/23 09/18/23 22:59 06:59 14:59 Intake Total 400 / 500 100 / 600 500 / 500 Output Total 50 / 50 Balance 400 / 500 50 / 550 500 / 500 Weight last 48 hrs Weight 78.925 kg Weight 81.2 kg Physical Exam 2 Narrative: awake , alert No distress L Decreased bs BI Urinary Catheter Management: Reed: Cath Placed During This Visit: yes Reason for Continuing Indwelling Catheter: Not indwelling catheter Urinary Catheter Date of Insertion: 09/16/23 Urinary Catheter Time of Insertion: 01:58 Data 09/18/23 04:15 09/18/23 04:15 Micro: Microbiology 09/16/23 19:52 Gram Stain - Final Sputum - Expectorated Sputum Sputum Culture - Preliminary A&P Assessment and plan (1) ESRD (end stage renal disease): Plan 1. End-stage renal disease: On TTS schedule as outpatient, has pulmonary edema with hypoxia. - s/p HD Saturday and HD again today 2. Anemia: Will order TAVON 3. Acute on chronic respiratory failure: Multifactorial secondary to pneumonia and CHF exacerbation 4. History of sacral decubitus wound with diverting colostomy 5. Diabetes type 2 Patient evaluated using audiovisual cart. Time spent 20 minutes. Attestations 2 Medical Necessity Statement*: per mediicen team Coding Level of Care Code Acute Code for Chg Fwd Diagnoses ESRD (end stage renal disease) N18.6
[2023-09-18] MEDS: albumin 12.5 GM/50 ML VIAL IV ×2 (10:25→10:26)
--- NOTE | 2023-09-18 12:18 | PC.SOCIAL ---
IMM Update pg 2 of IMM updated and reviewed w/ patient. Copy provided and copy dated, initialed and placed in chart.
[2023-09-18] MEDS: clopidogrel 75 mg Tablet PO (13:20)
[2023-09-18] MEDS: pantoprazole DR 40 mg Tablet PO (13:20)
[2023-09-18] MEDS: amiodarone 200 mg Tablet PO (13:20)
[2023-09-18] MEDS: docusate sodium 100 mg Capsule 200 MG PO (13:20)
[2023-09-18] MEDS: cefepime 2,000 MG in sodium chloride 0.9% (plus) 50 ML 100 MG IV ×2 (13:21→20:59)
[2023-09-18] MEDS: metoprolol succinate ER (24 HR) 25 mg Tablet PO (13:21)
[2023-09-18] MEDS: polyethylene glycol 3350 Pkt 17 gm PO (13:22)
[2023-09-18] MEDS: insulin lispro 100 unit/1 mL SUBCUT ×2 (13:39→17:37)
[2023-09-18 13:45] LABS: Glucose Point of Care 192 mg/dL (70-110)
--- NOTE | 2023-09-18 15:32 | CT_ITS ---
WS: [id number] CT pelvis TECHNIQUE: Noncontrast CT of the pelvis with coronal and sagittal reformatted images. CLINICAL INFORMATION: rule out osteomylitis , evaluate sacral ulcer stage 4 COMPARISON: None. DLP: 443.[address] scans at [facility] use at least one of these dose optimization techniques: automated e xposure control; mA and/or kV adjustment per patient size (includes targeted exams where dose is matc hed to clinical indication); or iterative reconstruction. FINDINGS: Images obtained in the RIGHT side down position. Again seen is the wide decubitus ulcer overlying the sacrum with associated induration in the subcuta neous soft tissues. No drainable abscess or fluid collection. Apparent previous resection of the cocc yx with 5 remaining sacral segments. No destructive changes involving the underlying residual sacrum. RIGHT inferior aspect of the sacrum abuts the skin. No definite evidence of acute osteomyelitis. Reed catheter. Vascular calcification. IMPRESSION: 1. No evidence of drainable abscess or fluid collection. 2. Evidence of prior coccyx resection. No evidence of destructive changes to indicate osteomyelitis in the sacrum. 3. Mild inflammatory stranding and edema deep to the decubitus ulcer. Bony sacrum closely abuts the skin in this location. 4. Reed catheter in place.
[2023-09-18 16:27] LABS: Glucose Point of Care 143 mg/dL (70-110)
[2023-09-18] MEDS: sodium chloride 0.9% 250 ML IV (17:38)
[2023-09-18] MEDS: atorvastatin 40 mg Tablet 80 MG PO (20:58)
[2023-09-18] MEDS: tamsulosin 0.4 mg Capsule 0.8 MG PO (20:58)
[2023-09-18] MEDS: aspirin 81 mg EC Tablet PO (20:58)
[2023-09-18] MEDS: vancomycin 1,000 MG in sodium chloride 0.9% 250 ML 250 MG IV (23:23)
[2023-09-19] VITALS (15 sets, daily range): BP systolic 92–124; BP diastolic 49–79; PULSE 79–101; RESP 16–33; TEMP 36.3–37; O2SAT 3–100
[2023-09-19] MEDS: ipratropium-albuterol 3 mL Neb INHALATION ×4 (01:04→19:49)
[2023-09-19] MEDS: heparin 5,000 unit/mL INJ 1 mL 5000 UNIT SUBCUT ×2 (01:21→12:49)
[2023-09-19] MEDS: oxyCODONE 5 mg IR Tab/Cap 10 MG PO ×3 (01:22→14:33)
[2023-09-19] MEDS: piperacillin-tazobactam 3.375 GM in sodium chloride 0.9% (plus) 50 ML IV ×3 (03:45→21:18)
[2023-09-19 05:58] LABS: Glucose Point of Care 96 mg/dL (70-110)
[2023-09-19] MEDS: allopurinol 300 mg Tablet PO (06:57)
[2023-09-19] MEDS: budesonide 0.5 mg/2 mL Neb INHALATION ×2 (08:13→19:48)
[2023-09-19] MEDS: insulin glargine 100 units/1 mL 14 UNIT SUBCUT (08:22)
[2023-09-19] MEDS: amiodarone 200 mg Tablet PO (09:16)
[2023-09-19] MEDS: metoprolol succinate ER (24 HR) 25 mg Tablet PO (09:16)
[2023-09-19] MEDS: pantoprazole DR 40 mg Tablet PO (09:16)
[2023-09-19] MEDS: docusate sodium 100 mg Capsule 200 MG PO (09:16)
[2023-09-19] MEDS: clopidogrel 75 mg Tablet PO (09:16)
[2023-09-19] MEDS: polyethylene glycol 3350 Pkt 17 gm PO (09:16)
[2023-09-19] MEDS: cefepime 2,000 MG in sodium chloride 0.9% (plus) 50 ML 100 MG IV ×2 (09:17→21:18)
--- NOTE | 2023-09-19 09:41 | P.PN_ITS ---
Subjective 2 Subjective: Matthew reports he feels a little bit better. No specific complaints today. Respiratory states he was down to about 40 to 45% FiO2 on his BiPAP last night. Blood pressures improved from yesterday. A small bolus of 250 cc was given for hypotension following dialysis. Medications: Reviewed: Yes Vitals/I&O/Wt Last Vital Signs Temp 98.2 F 09/19/23 07:29 Pulse 88 09/19/23 08:00 Resp 21 H 09/19/23 08:00 BP 113/68 09/19/23 07:29 Pulse Ox 98 09/19/23 08:00 O2 Del Method BiPAP 09/19/23 08:00 O2 Flow Rate 5 09/19/23 01:06 FiO2 45 09/19/23 08:00 09/18/23 09/19/23 09/19/23 22:59 06:59 14:59 Intake Total 1170 / 2060 300 / 2360 50 / 50 Output Total 2744 / 2744 50 / 2794 Balance -1574 / -684 250 / -434 50 / 50 Weight last 48 hrs Weight 77.61 kg Weight 77.7 kg Weight 78.925 kg Physical Exam 2 Narrative: General exam is a white male, who respiratory just took off BiPAP and placed on 4 L Neck is supple no lymphadenopathy thyromegaly Cardiovascular regular rate and rhythm without murmur Lungs coarse breath sounds, occasional expiratory wheeze Abdomen is soft with positive bowel sounds, nontender Extremities no cyanosis clubbing. No edema. Amputation noted. Urinary Catheter Management: Reed: Cath Placed During This Visit: yes Reason for Continuing Indwelling Catheter: Acute Urinary Retention or Obstruction Urinary Catheter Date of Insertion: 09/16/23 Urinary Catheter Time of Insertion: 01:58 Data 09/18/23 04:15 09/18/23 04:15 Micro: Microbiology 09/16/23 19:52 Gram Stain - Final Sputum - Expectorated Sputum Sputum Culture - Preliminary A&P Assessment and plan (1) Respiratory failure: Patient presents with acute hypoxic respiratory failure Appears to be improving. Wean oxygen as tolerated This is multifactorial. This may be secondary to his pneumonia, or heart failure Request records from [facility] from hospitalization previously there (2) Pneumonia: Patient appears to have pneumonia Continue cefepime, vancomycin, Zosyn Await sputum culture, Gram stain shows moderate white blood cells, few gram- negative rods and few gram-positive cocci MRSA PCR pending COVID PCR and influenza negative CBC, CMP in the morning He appears to have a right pleural effusion on x-ray. CT demonstrated some bilateral pleural effusions but relatively small. Significant consolidation was noted on the right. I think this is likely secondary to aspiration. Speech therapy is working with the patient. Overall, I do believe he is now slowly improving Possible discharge next 1 to 2 days which shows clear improvement with decreasing oxygen needs, improved white count. (3) Congestive heart failure: Patient with history of congestive heart failure Last echo poor quality, LV mildly reduced Appreciate nephrology intervention with dialysis (4) CKD (chronic kidney disease), stage V: Patient with end-stage renal disease, receiving hemodialysis through dialysis catheter right IJ. Appreciate nephrology consultation (5) Diabetes: Continue long-acting insulin, reduced amount Sliding scale insulin Speech therapy consultation Aspiration precautions (6) Afib: Continue amiodarone Plan Sacral decubitus. Wound care recommend CT, rule out osteomyelitis. Area is significantly tunneled from bone, stage IV. Repeat scan today with pelvis and sacrum to include all of decub. No osteo appears to be present. Anemia, likely related to chronic kidney disease. Transfuse 1 unit of packed red blood cells 09/18 . No evidence of ongoing bleeding. Laboratory pending today Multiple other medical problems as outlined in past medical history SCDs for DVT prophylaxis currently, Heparin for DVT prophylaxis Attestations 2 Medical Necessity Statement*: Needs continued hospitalization for IV antibiotics secondary to aspiration pneumonitis with need for significant amounts of oxygen. Diagnoses Respiratory failure J96.90 Pneumonia J18.9 Congestive heart failure I50.9 CKD (chronic kidney disease), stage V N18.5 Diabetes E11.9 Afib I48.91 Time Spent (min) 21
--- NOTE | 2023-09-19 10:21 | P.PN_ITS ---
Subjective 2 Subjective: Mr. Barrios is awake and able to answer questions this morning. He is on the BiPap. Drainage from sacral wound continues to be more controlled with wet to dry BID dressing changes. CT was ordered yesterday per my recommendation that showed no osteomylitis or abscess. Will continue to follow while inpatient. Medications: Reviewed: Yes Vitals/I&O/Wt Last Vital Signs Temp 98.2 F 09/19/23 07:29 Pulse 88 09/19/23 08:00 Resp 21 H 09/19/23 08:00 BP 113/68 09/19/23 07:29 Pulse Ox 98 09/19/23 08:00 O2 Del Method BiPAP 09/19/23 08:00 O2 Flow Rate 5 09/19/23 01:06 FiO2 45 09/19/23 08:00 09/18/23 09/19/23 09/19/23 22:59 06:59 14:59 Intake Total 1170 / 2060 300 / 2360 150 / 150 Output Total 2744 / 2744 50 / 2794 Balance -1574 / -684 250 / -434 150 / 150 Weight last 48 hrs Weight 77.61 kg Weight 77.7 kg Weight 78.925 kg Physical Exam 2 Narrative: General exam is a white male, on BiPAP Neck is supple no lymphadenopathy thyromegaly Cardiovascular regular rate and rhythm without murmur Lungs coarse bilaterally right greater than left Abdomen is soft with positive bowel sounds, nontender Extremities no cyanosis clubbing. Trace edema is noted. Amputation noted. Skin: WOUNDS: Yes wounds noted Urinary Catheter Management: Reed: Cath Placed During This Visit: yes Reason for Continuing Indwelling Catheter: Acute Urinary Retention or Obstruction Urinary Catheter Date of Insertion: 09/16/23 Urinary Catheter Time of Insertion: 01:58 Data 09/18/23 04:15 09/18/23 04:15 Micro: Microbiology 09/16/23 19:52 Gram Stain - Final Sputum - Expectorated Sputum Sputum Culture - Preliminary A&P Assessment and plan (1) Pressure ulcer of sacral region, stage 4: Stage 3 Pressure ulcer of sacrum with Adherent slough.30l07n4.3cm. Bone is palpable more than visible. Large amount of serous drainage. Slight odor. BID dressing changes Wet to dry with Dakins 0.5% solution (2) Pressure ulcer of left buttock, stage 3: Stage three pressure ulcer of left gluteal fold. 3.5x1x0.1cm .Adherent slought to wound bed. BID dressing changes Wet to dry with Dakin's solution 0.5%. (3) Pressure ulcer of right buttock, stage 3: Stage three pressure ulcer of right gluteal fold. 3.5x4x0.1cm. Adherent slought to wound bed. BID dressing changes Wet to dry with Dakin's solution 0.5%. Attestations 2 Medical Necessity Statement*: Needs continued hospitalization for IV antibiotics secondary to aspiration pneumonitis with need for significant amounts of oxygen and wound care. Time Spent in Patient Care: 16 - 35 minutes (>than 50% of time sp ent in counselling and/or direct pt care on unit) . and Moderate Time for a total of 21 minutes, includes reviewing past or interval history, examining/interviewing patient, placing orders, updating patient/family/other support, discussing plan of care with staff, documenting encounter and coordinating care Other Coding Information Focused coding review requested Diagnoses Pressure ulcer of sacral region, stage 4 L89.154 Pressure ulcer of left buttock, stage 3 L89.323 Pressure ulcer of right buttock, stage 3 L89.313 Time Spent (min) 21 Wound Orders Wound Number 1: Stage 4 pressure ulcer to Sacrum. Adherent slough to wound bed. Bone involvement, more palpable than visible. Does Wound require Debridement?: No Duration: 14 Days Dressing change frequency: Twice Daily and Other (PRN if saturated ) Wound Cleansing: Saline Primary Wound Care Dressing: Wet to dry with Dakin's 0.5% solution Secondary Wound Care Dressing: ABD, and tape Bathing/Showering/Hygiene: Do not shower or bathe in tub. Sponge bath only. Off-Loading: Turn and reposition every 2 hours Wound Number 2: Stage 3 pressure ulcer to Left gluteal fold. Adherent slough to wound bed. Does Wound require Debridement?: No Duration: 14 Days Dressing change frequency: Twice Daily and Other (prn if saturated) Wound Cleansing: Saline Primary Wound Care Dressing: Wet to dry with Dakin's 0.5% solution Secondary Wound Care Dressing: ABD and [place] tape Bathing/Showering/Hygiene: Do not shower or bathe in tub. Sponge bath only. Off-Loading: Turn and reposition every 2 hours Wound Number 3: Stage 3 pressure ulcer to right gluteal fold . Adherent slough to wound bed. Does Wound require Debridement?: No Duration: 14 Days Dressing change frequency: Twice Daily and Other (PRN if saturated ) Wound Cleansing: Saline Primary Wound Care Dressing: Wet to dry with Dakin's 0.5% solution Secondary Wound Care Dressing: ABD and met[place] tape Bathing/Showering/Hygiene: Do not shower or bathe in tub. Sponge bath only. Off-Loading: Turn and reposition every 2 hours
[2023-09-19 10:31] LABS: Basophils # 0.1 10^3/uL (0.0-0.1); Basophils % 0.4 %; Eosinophils # 0.1 10^3/uL (0.0-0.8); Eosinophils % 0.7 %; Hematocrit 28.3 % (37-53); Lymphocytes % 5.5 %; Mean Corpuscular HGB Conc 29.3 g/dL (30-55); Mean Corpuscular Hemoglobin 28.3 pg (27-33); Mean Corpuscular Volume 96.6 fl (82-101); Mean Platelet Volume 8.9 fL (7.4-10.4); Monocytes # 1.1 10^3/uL (0.2-0.9); Neutrophils # 15.59 10^3/uL (1.8-7.7); Neutrophils % 85.5 %; Nucleated Red Blood Cells % 0 %; Platelet Count 404 10^3/cmm (157-399); Red Blood Count 2.93 10^6/uL (3.85-5.65); Red Cell Distribution Width 19.9 % (12.1-15.1); White Blood Count 18.25 10^3/uL (3.29-11.43)
[2023-09-19] MEDS: sodium hypochlorite 0.25% Btl 473 mL 1 APPLIC TOPICAL (10:41)
[2023-09-19 10:48] LABS: Alanine Aminotransferase 11 U/L (0-41); Albumin Level 2.6 g/dL (3.5-5.2); Alkaline Phosphatase 95 U/L (40-130); Anion Gap 17.6 (5-19); Aspartate Amino Transferase 11 U/L (0-40); Blood Urea Nitrogen 15 mg/dL (6-20); Calcium 8.8 mg/dL (8.5-10.5); Carbon Dioxide 23 mmol/L (22-29); Chloride 101 mmol/L (98-107); Globulin 3.5 g/dL (1.3-4.6); Glomerular Filtration Rate 25.7 mL/min (90-130); Glucose 148 mg/dL (65-115); Osmolality Calculated 290 mOsm/kg (285-295); Potassium 3.6 mmol/L (3.5-5.1); Sodium 138 mmol/L (136-145); Total Bilirubin 0.4 mg/dL (0.15-1.2); Total Protein 6.1 g/dL (6.6-8.7)
--- NOTE | 2023-09-19 11:01 | P.PN_ITS ---
Subjective 2 Subjective: on 4 L Fio2 Medications: Reviewed: Yes Vitals/I&O/Wt Last Vital Signs Temp 98.2 F 09/19/23 07:29 Pulse 88 09/19/23 08:00 Resp 21 H 09/19/23 08:00 BP 113/68 09/19/23 07:29 Pulse Ox 98 09/19/23 08:00 O2 Del Method BiPAP 09/19/23 08:00 O2 Flow Rate 5 09/19/23 01:06 FiO2 45 09/19/23 08:00 09/18/23 09/19/23 09/19/23 22:59 06:59 14:59 Intake Total 1170 / 2060 300 / 2360 200 / 200 Output Total 2744 / 2744 50 / 2794 Balance -1574 / -684 250 / -434 200 / 200 Weight last 48 hrs Weight 77.61 kg Weight 77.7 kg Weight 78.925 kg Physical Exam 2 Narrative: awake , alert No distress L Urinary Catheter Management: Reed: Cath Placed During This Visit: yes Reason for Continuing Indwelling Catheter: Acute Urinary Retention or Obstruction Urinary Catheter Date of Insertion: 09/16/23 Urinary Catheter Time of Insertion: 01:58 Data 09/19/23 10:24 09/19/23 10:24 Micro: Microbiology 09/16/23 19:52 Gram Stain - Final Sputum - Expectorated Sputum Sputum Culture - Preliminary A&P Assessment and plan (1) ESRD (end stage renal disease): Plan 1. End-stage renal disease: On TTS schedule as outpatient, has pulmonary edema with hypoxia. - s/p HD yesterday , plan for HD again today 2. Anemia: Will order TAVON 3. Acute on chronic respiratory failure: Multifactorial secondary to pneumonia and CHF exacerbation 4. History of sacral decubitus wound with diverting colostomy 5. Diabetes type 2 Patient evaluated using audiovisual cart. Time spent 20 minutes. Attestations 2 Medical Necessity Statement*: per medicine team Coding Level of Care Code Acute Code for Chg Fwd Diagnoses ESRD (end stage renal disease) N18.6
[2023-09-19 11:54] LABS: Glucose Point of Care 186 mg/dL (70-110)
[2023-09-19] MEDS: insulin lispro 100 unit/1 mL SUBCUT (12:49)
[2023-09-19] MEDS: heparin, porcine 1,000 unit/mL INJ 10 mL 1000 UNIT IV (14:33)
[2023-09-19] MEDS: albumin 12.5 GM/50 ML VIAL IV ×2 (16:18→16:49)
[2023-09-19 17:53] LABS: Glucose Point of Care 85 mg/dL (70-110)
[2023-09-19 18:16] LABS: Glucose Point of Care 100 mg/dL (70-110)
[2023-09-19] MEDS: aspirin 81 mg EC Tablet PO (21:18)
[2023-09-19] MEDS: atorvastatin 40 mg Tablet 80 MG PO (21:18)
[2023-09-19] MEDS: tamsulosin 0.4 mg Capsule 0.8 MG PO (21:18)
[2023-09-19 23:41] LABS: Vancomycin Trough 20.2 ug/mL (10-15)
--- NOTE | 2023-09-19 23:54 | PC.NURSE ---
Vancomycin trough level is 20, 2300 dose not given.
[2023-09-20] VITALS (17 sets, daily range): BP systolic 96–120; BP diastolic 49–62; PULSE 84–102; RESP 18–37; TEMP 36.4–37.3; O2SAT 89–100
[2023-09-20] MEDS: oxyCODONE 5 mg IR Tab/Cap 10 MG PO ×4 (00:03→23:22)
[2023-09-20] MEDS: heparin 5,000 unit/mL INJ 1 mL 5000 UNIT SUBCUT ×2 (00:05→14:17)
[2023-09-20] MEDS: ipratropium-albuterol 3 mL Neb INHALATION ×4 (02:11→22:04)
[2023-09-20] MEDS: piperacillin-tazobactam 3.375 GM in sodium chloride 0.9% (plus) 50 ML IV ×3 (03:54→20:18)
[2023-09-20] MEDS: allopurinol 300 mg Tablet PO (05:47)
[2023-09-20 06:25] LABS: Basophils # 0.1 10^3/uL (0.0-0.1); Basophils % 0.2 %; Eosinophils % 0.2 %; Hematocrit 26.5 % (37-53); Lymphocytes # 0.8 10^3/uL (0.8-4.8); Lymphocytes % 3.2 %; Mean Corpuscular HGB Conc 29.8 g/dL (30-55); Mean Corpuscular Hemoglobin 28.2 pg (27-33); Mean Corpuscular Volume 94.6 fl (82-101); Mean Platelet Volume 8.7 fL (7.4-10.4); Monocytes # 1.1 10^3/uL (0.2-0.9); Monocytes % 4.5 %; Neutrophils # 22.46 10^3/uL (1.8-7.7); Neutrophils % 90.9 %; Nucleated Red Blood Cells % 0 %; Platelet Count 409 10^3/cmm (157-399); Red Cell Distribution Width 19.7 % (12.1-15.1)
[2023-09-20 06:51] LABS: Alanine Aminotransferase 10 U/L (0-41); Albumin Level 2.8 g/dL (3.5-5.2); Alkaline Phosphatase 90 U/L (40-130); Anion Gap 14.1 (5-19); Aspartate Amino Transferase 12 U/L (0-40); Blood Urea Nitrogen 11 mg/dL (6-20); Carbon Dioxide 26 mmol/L (22-29); Chloride 100 mmol/L (98-107); Globulin 3.5 g/dL (1.3-4.6); Glomerular Filtration Rate 32.8 mL/min (90-130); Glucose 55 mg/dL (65-115); Osmolality Calculated 281 mOsm/kg (285-295); Potassium 3.1 mmol/L (3.5-5.1); Sodium 137 mmol/L (136-145); Total Bilirubin 0.4 mg/dL (0.15-1.2); Total Protein 6.3 g/dL (6.6-8.7)
[2023-09-20] MEDS: metoprolol succinate ER (24 HR) 25 mg Tablet PO (08:17)
[2023-09-20] MEDS: pantoprazole DR 40 mg Tablet PO (08:17)
[2023-09-20] MEDS: amiodarone 200 mg Tablet PO (08:18)
[2023-09-20] MEDS: clopidogrel 75 mg Tablet PO (08:18)
[2023-09-20] MEDS: docusate sodium 100 mg Capsule 200 MG PO (08:22)
[2023-09-20] MEDS: cefepime 2,000 MG in sodium chloride 0.9% (plus) 50 ML 100 MG IV (08:22)
[2023-09-20 08:31] LABS: Glucose Point of Care 62 mg/dL (70-110)
[2023-09-20 08:31] LABS: Glucose Point of Care 106 mg/dL (70-110)
[2023-09-20 08:31] LABS: Glucose Point of Care 61 mg/dL (70-110)
[2023-09-20] MEDS: budesonide 0.5 mg/2 mL Neb INHALATION ×2 (08:52→22:04)
--- NOTE | 2023-09-20 08:58 | P.PN_ITS ---
Subjective 2 Subjective: Matthew was confused with dialysis yesterday. Placed on BiPAP. He is on BiPAP when I saw him this morning, reevaluated-he is interactive, moving all extremities. Somewhat confused. He coughs frequently. Medications: Reviewed: Yes Vitals/I&O/Wt Last Vital Signs Temp 99.2 F 09/20/23 08:00 Pulse 87 09/20/23 08:00 Resp 30 H 09/20/23 04:00 BP 120/62 09/20/23 08:00 Pulse Ox 100 09/20/23 08:00 O2 Del Method BiPAP 09/20/23 08:00 O2 Flow Rate 4 09/19/23 13:27 FiO2 55 09/20/23 04:00 09/19/23 09/20/23 09/20/23 22:59 06:59 14:59 Intake Total 881 / 1081 150 / 1231 50 / 50 Output Total 2648 / 2648 0 / 2648 Balance -1767 / -1567 150 / -1417 50 / 50 Weight last 48 hrs Weight 79.469 kg Weight 76.3 kg Weight 77.61 kg Weight 77.7 kg Physical Exam 2 Narrative: General exam is a white male, coughing frequently. I was able to wean his oxygen to 3 L while he was in the room with his O2 stats still been around 95% Neck is supple no lymphadenopathy thyromegaly Cardiovascular regular rate and rhythm without murmur Lungs coarse bilaterally Abdomen is soft with positive bowel sounds, nontender Extremities no cyanosis clubbing. No edema. Amputation noted. Urinary Catheter Management: Reed: Cath Placed During This Visit: yes Reason for Continuing Indwelling Catheter: Acute Urinary Retention or Obstruction Urinary Catheter Date of Insertion: 09/16/23 Urinary Catheter Time of Insertion: 01:58 Data 09/20/23 06:19 09/20/23 06:19 Micro: Microbiology 09/16/23 19:52 Gram Stain - Final Sputum - Expectorated Sputum Sputum Culture - Final Methicillin Resis Staph Aureus Klebsiella pneumoniae A&P Assessment and plan (1) Respiratory failure: Patient presents with acute hypoxic respiratory failure This seems worse today White blood cell count is increased I think he is aspirating chronically. Placed n.p.o. (2) Pneumonia: Patient appears to have pneumonia Continue cefepime, vancomycin, Zosyn Cultures show MRSA and Klebsiella. Discontinue cefepime COVID PCR and influenza negative CBC, CMP in the morning He appears to have a right pleural effusion on x-ray. CT demonstrated some bilateral pleural effusions but relatively small. Significant consolidation was noted on the right. I think this is likely secondary to aspiration. With his white blood cell count increasing, cough increasing well making p.o. Speech therapy is working with the patient but I do not think otitis safe today Try to wean oxygen as tolerated Overall prognosis poor secondary to chronic aspiration. With patient's confusion, will need to rely on family members for help with decision-making. Will have discharge planning see if they can get a number for daughter which is listed in the chart as personally notified. However, when I called the number it is not functioning. Repeat chest x-ray which I will review (3) Congestive heart failure: Patient with history of congestive heart failure Last echo poor quality, LV mildly reduced Appreciate nephrology intervention with dialysis (4) CKD (chronic kidney disease), stage V: Patient with end-stage renal disease, receiving hemodialysis through dialysis catheter right IJ. Appreciate nephrology consultation (5) Diabetes: Continue long-acting insulin, reduced amount Sliding scale insulin Speech therapy consultation Aspiration precautions (6) Afib: Continue amiodarone Plan Sacral decubitus. Wound care recommend CT, rule out osteomyelitis. Area is significantly tunneled from bone, stage IV. Repeat scan of pelvis and sacrum to include all of decub. No osteo appears to be present. Anemia, likely related to chronic kidney disease. Transfuse 1 unit of packed red blood cells 09/18 . No evidence of ongoing bleeding. Laboratory pending today Multiple other medical problems as outlined in past medical history SCDs for DVT prophylaxis currently, Heparin for DVT prophylaxis Attestations 2 Medical Necessity Statement*: Needs continued hospital stay for IV antibiotics related to pneumonia Diagnoses Respiratory failure J96.90 Pneumonia J18.9 Congestive heart failure I50.9 CKD (chronic kidney disease), stage V N18.5 Diabetes E11.9 Afib I48.91 Time Spent (min) 26
--- NOTE | 2023-09-20 09:04 | XRR_ITS ---
PROCEDURE INFORMATION: Exam: XR Chest Exam date and time: 09/20/2023 10:49 AM Age: 58 years old Clinical indication: Condition or disease; Lung condition and disease; Pneumonia TECHNIQUE: Imaging protocol: Radiologic exam of the chest. Views: 1 view. COMPARISON: CT chest [facility] [id number] 09/16/2023 2:25 PM FINDINGS: Lungs: Similar fjjgl-ptcsewf-hqnd-left consolidation. Pleural spaces: Small ppsej-yobwhtz-yglg-left pleural effusions. No pneumothorax. Heart/Mediastinum: Heart size is unchanged. Bones/joints: No acute findings. XR/XR chest 1V portable [id number] IMPRESSION: No significant change in pdvpz-ujozufj-lbda-left opacities and small pleural effusions.
[2023-09-20] MEDS: sodium hypochlorite 0.25% Btl 473 mL 1 APPLIC TOPICAL (10:34)
[2023-09-20 10:58] LABS: Glucose Point of Care 132 mg/dL (70-110)
--- NOTE | 2023-09-20 12:08 | P.PN_ITS ---
Subjective 2 Subjective: pt lethargic and confused Medications: Reviewed: Yes Vitals/I&O/Wt Last Vital Signs Temp 97.5 F L 09/20/23 11:29 Pulse 90 09/20/23 11:29 Resp 23 H 09/20/23 11:29 BP 104/51 09/20/23 11:29 Pulse Ox 92 09/20/23 11:29 O2 Del Method Nasal Cannula 09/20/23 11:29 O2 Flow Rate 3 09/20/23 08:00 FiO2 55 09/20/23 04:00 09/19/23 09/20/23 09/20/23 22:59 06:59 14:59 Intake Total 881 / 1081 150 / 1231 50 / 50 Output Total 2648 / 2648 0 / 2648 Balance -1767 / -1567 150 / -1417 50 / 50 Weight last 48 hrs Weight 79.469 kg Weight 76.3 kg Weight 77.61 kg Weight 77.7 kg Physical Exam 2 Narrative: awake , alert No distress L Urinary Catheter Management: Reed: Cath Placed During This Visit: yes Reason for Continuing Indwelling Catheter: Acute Urinary Retention or Obstruction Urinary Catheter Date of Insertion: 09/16/23 Urinary Catheter Time of Insertion: 01:58 Data 09/20/23 06:19 09/20/23 06:19 Micro: Microbiology 09/16/23 19:52 Gram Stain - Final Sputum - Expectorated Sputum Sputum Culture - Final Methicillin Resis Staph Aureus Klebsiella pneumoniae A&P Assessment and plan (1) ESRD (end stage renal disease): Plan 1. End-stage renal disease: On TTS schedule as outpatient, has pulmonary edema with hypoxia. - s/p HD yesterday , plan for HD tomorrow 2. Anemia: Will order TAVON 3. Acute on chronic respiratory failure: Multifactorial secondary to pneumonia and CHF exacerbation 4. History of sacral decubitus wound with diverting colostomy 5. Diabetes type 2 6. Altered mental status Patient evaluated using audiovisual cart. Time spent 20 minutes. Attestations 2 Medical Necessity Statement*: per medicien team Coding Level of Care Code Acute Code for Chg Fwd Diagnoses ESRD (end stage renal disease) N18.6
--- NOTE | 2023-09-20 15:43 | PC.NURSE ---
Provider is notified of his blood pressures going under 100. Provider is aware of this is said that this is patients normal.
--- NOTE | 2023-09-20 16:27 | CTR_ITS ---
PROCEDURE INFORMATION: Exam: CT Head Without Contrast Exam date and time: 09/20/2023 5:02 PM Age: 58 years old Clinical indication: Altered mental status/memory loss; Confusion or disorientation TECHNIQUE: Imaging protocol: Computed tomography of the head without contrast. Radiation optimization: All CT scans at this facility use at least one of these dose optimization techniques: automated exposure control; mA and/or kV adjustment per patient size (includes targeted exams where dose is matched to clinical indication); or iterative reconstruction. REPORTING DATA: Count of CT and Cardiac NM exams in prior 12 months: This patient has received 6 known CTs and 0 known cardiac nuclear medicine studies in the 12 months prior to the current study. COMPARISON: MR head wo con* [id number] 01/15/2019 10:34 AM RADIATION DOSE METRICS: Total DLP (mGy-cm): 950.01 FINDINGS: Brain: No hemorrhage. Multifocal changes of prior/remote infarcts. No evidence of new acute infarct. Chronic white matter and senescent changes. Cerebral ventricles: No ventriculomegaly. Paranasal sinuses: Minimal mucosal thickening and/or retention cyst formation. Mastoid air cells: No mastoid effusion. Bones/joints: No acute findings. Soft tissues: No acute findings. CT/CT head wo con* [id number] IMPRESSION: No acute intracranial abnormality. Multifocal remote infarcts, chronic white matter and senescent changes.
[2023-09-20 16:39] LABS: Glucose Point of Care 172 mg/dL (70-110)
[2023-09-20] MEDS: tamsulosin 0.4 mg Capsule 0.8 MG PO (21:38)
[2023-09-20] MEDS: aspirin 81 mg EC Tablet PO (21:38)
[2023-09-20] MEDS: atorvastatin 40 mg Tablet 80 MG PO (21:39)
[2023-09-20 21:41] LABS: Glucose Point of Care 136 mg/dL (70-110)
[2023-09-20] MEDS: vancomycin 1,000 MG in sodium chloride 0.9% 250 ML 250 MG IV (23:23)
[2023-09-21] VITALS (20 sets, daily range): BP systolic 94–138; BP diastolic 44–65; PULSE 85–101; RESP 18–30; TEMP 36.6–37; O2SAT 88–100
[2023-09-21] MEDS: heparin 5,000 unit/mL INJ 1 mL 5000 UNIT SUBCUT ×2 (00:54→15:24)
[2023-09-21] MEDS: ipratropium-albuterol 3 mL Neb INHALATION ×2 (02:24→19:36)
[2023-09-21] MEDS: lidocaine 5% Patch 2 PATCH TOPICAL ×2 (02:27→11:47)
[2023-09-21] MEDS: piperacillin-tazobactam 3.375 GM in sodium chloride 0.9% (plus) 50 ML IV ×3 (02:50→20:19)
[2023-09-21 03:53] LABS: Basophils # 0.1 10^3/uL (0.0-0.1); Basophils % 0.3 %; Eosinophils # 0.2 10^3/uL (0.0-0.8); Eosinophils % 0.9 %; Hematocrit 27.3 % (37-53); Lymphocytes % 5.5 %; Mean Corpuscular HGB Conc 29.3 g/dL (30-55); Mean Corpuscular Hemoglobin 27.8 pg (27-33); Mean Corpuscular Volume 94.8 fl (82-101); Monocytes # 0.8 10^3/uL (0.2-0.9); Monocytes % 4.5 %; Neutrophils # 16.16 10^3/uL (1.8-7.7); Nucleated Red Blood Cells % 0 %; Platelet Count 469 10^3/cmm (157-399); Red Blood Count 2.88 10^6/uL (3.85-5.65); White Blood Count 18.35 10^3/uL (3.29-11.43)
--- NOTE | 2023-09-21 03:59 | PC.NURSE ---
sacral wound- dressing change completed with dankins solution wet to dry.
[2023-09-21] MEDS: sodium hypochlorite 0.25% Btl 473 mL 1 APPLIC TOPICAL (04:00)
[2023-09-21 04:21] LABS: Alanine Aminotransferase 8 U/L (0-41); Albumin Level 2.5 g/dL (3.5-5.2); Alkaline Phosphatase 87 U/L (40-130); Anion Gap 16.2 (5-19); Aspartate Amino Transferase 11 U/L (0-40); Blood Urea Nitrogen 18 mg/dL (6-20); Calcium 8.7 mg/dL (8.5-10.5); Carbon Dioxide 23 mmol/L (22-29); Chloride 103 mmol/L (98-107); Globulin 3.3 g/dL (1.3-4.6); Glomerular Filtration Rate 21.8 mL/min (90-130); Glucose 147 mg/dL (65-115); Osmolality Calculated 293 mOsm/kg (285-295); Potassium 3.2 mmol/L (3.5-5.1); Sodium 139 mmol/L (136-145); Total Bilirubin 0.5 mg/dL (0.15-1.2); Total Protein 5.8 g/dL (6.6-8.7)
[2023-09-21 04:25] LABS: Ammonia 51 umol/L (16-60)
[2023-09-21 06:37] LABS: Glucose Point of Care 150 mg/dL (70-110)
--- NOTE | 2023-09-21 07:31 | PC.NURSE ---
Patient left [facility] for dialysis.
[2023-09-21] MEDS: albumin 12.5 GM/50 ML VIAL IV ×2 (07:46→08:33)
--- NOTE | 2023-09-21 11:30 | PC.NURSE ---
Patient comes back to [facility] from dialysis at 1110.
[2023-09-21] MEDS: pantoprazole DR 40 mg Tablet PO (11:44)
[2023-09-21] MEDS: oxyCODONE 5 mg IR Tab/Cap 10 MG PO ×2 (11:45→22:14)
[2023-09-21] MEDS: amiodarone 200 mg Tablet PO (11:45)
[2023-09-21] MEDS: metoprolol succinate ER (24 HR) 25 mg Tablet PO (11:46)
[2023-09-21] MEDS: clopidogrel 75 mg Tablet PO (11:46)
[2023-09-21] MEDS: docusate sodium 100 mg Capsule 200 MG PO (11:46)
[2023-09-21 12:34] LABS: Glucose Point of Care 113 mg/dL (70-110)
--- NOTE | 2023-09-21 15:57 | P.PN_ITS ---
Subjective 2 Subjective: Hospital course, labs appreciated. Today morning patient seen in [facility], laying comfortably in bed, confused with oxygen out of his nose but saturating in high 80s. Patient seems confused and only screaming ' what, what' again and again. He is not able to answer or fail to follow any commands. Blood work appreciated. Has remained hemodynamically stable and afebrile for now. Vitals/I&O/Wt Last Vital Signs Temp 98.5 F 09/21/23 12:22 Pulse 92 09/21/23 15:32 Resp 22 H 09/21/23 15:32 BP 138/55 09/21/23 12:00 Pulse Ox 94 09/21/23 15:32 O2 Del Method Nasal Cannula 09/21/23 15:32 O2 Flow Rate 2 09/21/23 15:32 FiO2 50 09/21/23 06:10 09/21/23 09/21/23 09/21/23 06:59 14:59 22:59 Intake Total 300 / 450 450 / 450 Output Total 200 / 200 2900 / 2900 Balance 100 / 250 -2450 / -2450 Weight last 48 hrs Weight 73.7 kg Weight 76.34 kg Weight 79.469 kg Weight 76.3 kg Physical Exam 2 Narrative: General: No acute distress, confused, awake, not able to follow commands, nasal cannula HEENT: PERRLA, pupils bilaterally equal and reactive Chest: Bilateral bronchial breath sounds with occasional rhonchi, coarse crackles present bilateral lower zone CVS: S1-S2 regular, no murmurs, no tachycardia, no gallops, no rubs Abdomen: Soft, nontender, no organomegaly, bowel sounds present, morbidly obese Neuro: No focal deficits, no facial deformity, AO x3, power 5/5 in all limbs Urinary Catheter Management: Reed: Cath Placed During This Visit: yes Reason for Continuing Indwelling Catheter: Accurate Measurement of Urinary Output in Critically Ill Patients Urinary Catheter Date of Insertion: 09/16/23 Urinary Catheter Time of Insertion: 01:58 Data 09/21/23 03:12 09/21/23 03:12 Micro: Microbiology 09/15/23 23:35 Blood Culture - Final Blood NO GROWTH AFTER 5 DAYS 09/15/23 23:40 Blood Culture - Final Blood NO GROWTH AFTER 5 DAYS A&P Assessment and plan (1) Respiratory failure: Patient presents with acute hypoxic respiratory failure. High concerns for aspiration pneumonitis. Sputum culture growing Klebsiella and MRSA. Continue with IV antibiotics as below. Speech therapy. Advance diet as per speech evaluation. Continue n.p.o. for now. DuoNebs every 6 hour, Pulmicort twice daily. (2) Pneumonia: Sputum culture growing Klebsiella and MRSA. Continue with IV vancomycin and Zosyn as per culture sensitivities. COVID-[address] chest on admission. Check D-dimer. D-dimer in April [address] Will plan for CT versus CTA as per the results. Oxygen supplementation keeping saturation over 88%. (3) Congestive heart failure: Patient with history of congestive heart failure Last echo poor quality, LV mildly reduced Appreciate nephrology intervention with dialysis (4) CKD (chronic kidney disease), stage V: Patient with end-stage renal disease, receiving hemodialysis through dialysis catheter right IJ. Appreciate nephrology consultation (5) Diabetes: Continue long-acting insulin, reduced amount Sliding scale insulin Speech therapy consultation Aspiration precautions (6) Afib: Continue amiodarone (7) MRSA pneumonia: (8) Klebsiella pneumonia: (9) Hypoxia: Plan Sacral decubitus. Wound care recommend CT, rule out osteomyelitis. Area is significantly tunneled from bone, stage IV. Repeat scan of pelvis and sacrum to include all of decub. No osteo appears to be present. Anemia, likely related to chronic kidney disease. Transfuse 1 unit of packed red blood cells 09/18 . No evidence of ongoing bleeding. Laboratory pending today Multiple other medical problems as outlined in past medical history. Continue wound care as per wound care nurse recommendations. SCDs for DVT prophylaxis currently, Heparin for DVT prophylaxis Attestations 2 Medical Necessity Statement*: Requires further hospitalization for management of acute encephalopathy in setting of aspiration pneumonitis, CKD, MRSA and Klebsiella pneumonia. Diagnoses Respiratory failure J96.90 Pneumonia J18.9 Congestive heart failure I50.9 CKD (chronic kidney disease), stage V N18.5 Diabetes E11.9 Afib I48.91 MRSA pneumonia J15.212 Klebsiella pneumonia J15.0 Hypoxia R09.02
[2023-09-21 15:58] LABS: Procalcitonin 0.58 ng/mL (0-0.5); Thyroid Stimulating Hormone 1.78 uIU/mL (0.27-4.20); Vitamin B12 276 pg/mL (232-1245)
[2023-09-21 16:09] LABS: Iron 47 ug/dL (59-158); Percent Saturation 63.5 % (20-50); Total Iron Binding Capacity 74 mcg/dl; Unsaturated Iron Binding 27 ug/dL (112-347)
[2023-09-21 17:01] LABS: Glucose Point of Care 136 mg/dL (70-110)
[2023-09-21 19:10] LABS: D Dimer 11.39 ug/mLFEU (0-0.59)
[2023-09-21] MEDS: budesonide 0.5 mg/2 mL Neb INHALATION (19:36)
[2023-09-21 21:08] LABS: Glucose Point of Care 157 mg/dL (70-110)
--- NOTE | 2023-09-21 21:10 | P.PN_ITS ---
Subjective 2 Subjective: s/p HD Medications: Reviewed: Yes Vitals/I&O/Wt Last Vital Signs Temp 98.2 F 09/21/23 19:51 Pulse 95 09/21/23 19:51 Resp 24 H 09/21/23 19:51 BP 96/65 09/21/23 19:51 Pulse Ox 92 09/21/23 19:51 O2 Del Method Nasal Cannula 09/21/23 19:51 O2 Flow Rate 2 09/21/23 15:32 FiO2 50 09/21/23 19:40 09/21/23 09/21/23 09/21/23 06:59 14:59 22:59 Intake Total 300 / 450 450 / 450 50 / 500 Output Total 200 / 200 2900 / 2900 Balance 100 / 250 -2450 / -2450 50 / -2400 Weight last 48 hrs Weight 73.7 kg Weight 76.34 kg Weight 79.469 kg Physical Exam 2 Narrative: awake , alert No distress L Urinary Catheter Management: Reed: Cath Placed During This Visit: yes Reason for Continuing Indwelling Catheter: Accurate Measurement of Urinary Output in Critically Ill Patients Urinary Catheter Date of Insertion: 09/16/23 Urinary Catheter Time of Insertion: 01:58 Data 09/21/23 03:12 09/21/23 03:12 Micro: Microbiology 09/15/23 23:35 Blood Culture - Final Blood NO GROWTH AFTER 5 DAYS 09/15/23 23:40 Blood Culture - Final Blood NO GROWTH AFTER 5 DAYS A&P Assessment and plan (1) ESRD (end stage renal disease): Plan 1. End-stage renal disease: On TTS schedule as outpatient, has pulmonary edema with hypoxia. - s/p HD yesterday ,HD today 2. Anemia: Will order TAVON 3. Acute on chronic respiratory failure: Multifactorial secondary to pneumonia and CHF exacerbation 4. History of sacral decubitus wound with diverting colostomy 5. Diabetes type 2 6. Altered mental status Patient evaluated using audiovisual cart. Time spent 20 minutes. Attestations 2 Medical Necessity Statement*: PER MEDICINE TEAM Coding Level of Care Code Acute Code for Chg Fwd Diagnoses ESRD (end stage renal disease) N18.6
[2023-09-21] MEDS: insulin lispro 100 unit/1 mL SUBCUT (21:51)
[2023-09-21] MEDS: aspirin 81 mg EC Tablet PO (21:51)
[2023-09-21] MEDS: tamsulosin 0.4 mg Capsule 0.8 MG PO (21:51)
[2023-09-21] MEDS: atorvastatin 40 mg Tablet 80 MG PO (21:51)
[2023-09-21 22:45] LABS: ABG PCO2 29.5 mmHg (35-45); ABG PH Result 7.41 (7.35-7.45); Alveolar-Arterial Oxygen Gradi 34.8 mmHg (5-10); Arterial Blood Gas Hematocrit 29.5 % (42-52); Base Excess ABG -5.1 mmol/L (-2.0-2.0); Blood Gas Allen Test Pos; Blood Gas Sample Site Radial, right; Blood Gas Sample Type Arterial; Carboxyhemoglobin 1.6 %THgb (0.4-20.1); HCO3 ABG 18.7 mmol/L (22-26); Ionized Calcium Level - ABG 1.2 mmol/L (1.1-1.4); Methemoglobin 0.4 % (0.4-1.5); Oxygen Device BIPAP; Oxygen Saturation ABG 84.8; PO2 ABG 48.4 mmHg (80.0-100.0); PO2 FiO2 Ratio Arterial Blood 0; Potassium Level - ABG 3.1 mmol/L (3.5-5.0); Total Hemoglobin 9.6 g/dL (14-18)
[2023-09-21] MEDS: vancomycin 1,000 MG in sodium chloride 0.9% 250 ML 250 MG IV (23:59)
[2023-09-22] VITALS (100 sets, daily range): BP systolic 43–120; BP diastolic 20–77; PULSE 82–108; RESP 12–34; TEMP 36.6–37.1; O2SAT 65–100
[2023-09-22] MEDS: heparin 5,000 unit/mL INJ 1 mL 5000 UNIT SUBCUT ×2 (01:40→13:29)
[2023-09-22 01:42] LABS: Basophils # 0.1 10^3/uL (0.0-0.1); Basophils % 0.4 %; Eosinophils # 0.1 10^3/uL (0.0-0.8); Eosinophils % 0.6 %; Hematocrit 31.7 % (37-53); Lymphocytes # 1.2 10^3/uL (0.8-4.8); Lymphocytes % 5.4 %; Mean Corpuscular HGB Conc 29.7 g/dL (30-55); Mean Corpuscular Hemoglobin 28.1 pg (27-33); Mean Corpuscular Volume 94.6 fl (82-101); Mean Platelet Volume 8.8 fL (7.4-10.4); Monocytes # 0.7 10^3/uL (0.2-0.9); Monocytes % 3.4 %; Neutrophils # 18.89 10^3/uL (1.8-7.7); Neutrophils % 89.5 %; Nucleated Red Blood Cells % 0 %; Platelet Count 590 10^3/cmm (157-399); Red Blood Count 3.35 10^6/uL (3.85-5.65); Red Cell Distribution Width 20.3 % (12.1-15.1); White Blood Count 21.13 10^3/uL (3.29-11.43)
[2023-09-22 02:04] LABS: Chol HDL Ratio 2.15 mg/dL (1.0-5.00); Cholesterol 88 mg/dL (0-200); HDL Cholesterol 41 mg/dL (60-100); LDL Cholesterol Calculated 28 mg/dL (50-129); Magnesium 2.1 mg/dL (1.7-2.3); Phosphorus 2.5 mg/dL (2.5-4.5); Triglycerides 93 mg/dL (0-150); VLDL Cholestrol Calculation 19 mg/dL (0-30)
[2023-09-22 02:08] LABS: Alanine Aminotransferase 9 U/L (0-41); Albumin Level 2.8 g/dL (3.5-5.2); Alkaline Phosphatase 87 U/L (40-130); Anion Gap 19.1 (5-19); Aspartate Amino Transferase 12 U/L (0-40); Blood Urea Nitrogen 14 mg/dL (6-20); Calcium 9.1 mg/dL (8.5-10.5); Carbon Dioxide 23 mmol/L (22-29); Chloride 100 mmol/L (98-107); Globulin 3.5 g/dL (1.3-4.6); Glomerular Filtration Rate 29.6 mL/min (90-130); Glucose 61 mg/dL (65-115); Osmolality Calculated 286 mOsm/kg (285-295); Potassium 3.1 mmol/L (3.5-5.1); Sodium 139 mmol/L (136-145); Total Bilirubin 0.6 mg/dL (0.15-1.2); Total Protein 6.3 g/dL (6.6-8.7)
[2023-09-22] MEDS: ipratropium-albuterol 3 mL Neb INHALATION ×5 (03:00→19:41)
[2023-09-22] MEDS: piperacillin-tazobactam 3.375 GM in sodium chloride 0.9% (plus) 50 ML IV (03:04)
[2023-09-22 03:27] LABS: Estmated Average Glucose 117; Hemoglobin A1C 5.7 % (4.0-6.0)
[2023-09-22] MEDS: sodium chloride 0.9% 250 ML 999 ML IV ×2 (04:27→04:45)
[2023-09-22 05:21] LABS: Folate Level > 20.0 ng/mL (4.5-32.2)
--- NOTE | 2023-09-22 05:24 | PC.NURSE ---
staff had been monitoring pts bp throughout the night. around 0400 pt bp read 62/59. nursing staff immediately went to his room to assess pt. bp cuff was moved to several locations to verify pressures since pt had been rolled from side to side due to a decubitis ulcer on his sacrum. physican was called and nurse received orders for a bolus of normal saline. nursing staff continued to stay in his room to monitor his condition. a second bolus was ordered and pt was transferred to icu for further treatment.
[2023-09-22] MEDS: norepinephrine 4 MG/250 ML BAG 7.5 MG IV (05:25)
[2023-09-22 05:30] LABS: ABG PCO2 35.4 mmHg (35-45); ABG PH Result 7.34 (7.35-7.45); Alveolar-Arterial Oxygen Gradi 19.9 mmHg (5-10); Arterial Blood Gas Hematocrit 25.9 % (42-52); Base Excess ABG -6.2 mmol/L (-2.0-2.0); Blood Gas Allen Test Pos; Blood Gas Sample Site Radial, left; Blood Gas Sample Type Arterial; Carboxyhemoglobin 1.5 %THgb (0.4-20.1); HGB O2 Sat 97.1 % (95-100); Ionized Calcium Level - ABG 1.2 mmol/L (1.1-1.4); Methemoglobin 0.9 % (0.4-1.5); Oxygen Device BIPAP; Oxygen Saturation ABG 99.4; PO2 FiO2 Ratio Arterial Blood 0; Potassium Level - ABG 3.4 mmol/L (3.5-5.0); Total Hemoglobin 8.4 g/dL (14-18)
[2023-09-22] MEDS: allopurinol 300 mg Tablet PO (06:37)
[2023-09-22] MEDS: oxyCODONE 5 mg IR Tab/Cap 10 MG PO ×3 (06:41→22:57)
[2023-09-22] MEDS: budesonide 0.5 mg/2 mL Neb INHALATION ×2 (07:50→19:41)
--- NOTE | 2023-09-22 07:55 | CTR_ITS ---
PROCEDURE INFORMATION: Exam: CTA Chest With Contrast Exam date and time: 09/22/2023 9:19 AM Age: 58 years old Clinical indication: Shortness of breath; Additional info: Resp failure TECHNIQUE: Imaging protocol: Computed tomographic angiography of the chest with contrast. Exam focused on the arteries. 3D rendering (Not supervised by radiologist): MIP reconstructed images were created by the technologist. Radiation optimization: All CT scans at this facility use at least one of these dose optimization techniques: automated exposure control; mA and/or kV adjustment per patient size (includes targeted exams where dose is matched to clinical indication); or iterative reconstruction. Contrast material: OMNI 350; Contrast volume: 63 ml; Contrast route: INTRAVENOUS (IV); REPORTING DATA: Count of CT and Cardiac NM exams in prior 12 months: This patient has received 7 known CTs and 0 known cardiac nuclear medicine studies in the 12 months prior to the current study. COMPARISON: CT chest wo con [id number] 09/16/2023 2:25 PM RADIATION DOSE METRICS: Total DLP (mGy-cm): 503.1 FINDINGS: Tubes, catheters and devices: A right internal jugular venous dual lumen catheter is present with the distal port tip in the cavoatrial junction. Pulmonary arteries: Normal. No pulmonary emboli. Aorta: Mild aortic arch atherosclerotic calcification without ectasia. No aortic dissection. Other arteries: Incidental note is made of an azygos segment of the right upper lobe, a normal variant. Lungs: Right lower lobe pulmonary partial atelectasis. Focal airspace opacities of the inferior segment lingula and left lung base, some demonstrating cavitation. Rounded foci of consolidation bilateral lower lobes. Focal areas of mild bronchiectasis left lower lobe medial basilar segment, inferior lingula. Pleural spaces: Moderate right pleural effusion, moderately decreased, partially non dependent in the posteromedial lower chest. Resolved left pleural effusion. No pneumothorax. Heart: Moderate aortic valvular calcification is present. Mitral annular calcification is present. Coronary arteries: Left main, LAD, LCx and RCA calcified coronary atherosclerosis. Lymph nodes: Right hilar lymph node measuring 16.3 mm short axis. Right lower paratracheal lymph node measuring 14 0.4 mm short axis. Right upper paratracheal lymph nodes, largest 12.4 mm short axis. Aorticopulmonary window nodes, largest 7.7 mm short axis. Subcarinal lymph node measuring 16.2 mm short axis. Left hilar lymph nodes, largest 12.4 mm short axis. Bones/joints: No acute abnormality identified. Small thoracic spine vertebral body marginal osteophytes. No acute fracture. Soft tissues: Unremarkable. Other findings: Streak artifact is present from the patient's arms at the side. CT/CT angio chest PE protcl [id number] IMPRESSION: 1. Decreased moderate right pleural effusion, partially loculated. 2. Right lower lobe pulmonary partial atelectasis. 3. Cavitary lesions inferior lingula and left lung base. This may represent cavitary infection, septic emboli felt less likely due to unilateral involvement. Clinical correlation is recommended. 4. Rounded foci of consolidation bilateral lower lobes. Pneumonitis is suspected. Clinical correlation is recommended. Follow-up to confirm clearing is recommended. 5. Focal areas of mild bronchiectasis left lower lobe medial basilar segment, inferior lingula. 6. No pulmonary artery embolism identified. Impression. 7. Coronary atherosclerosis. 8. Please see the abdomen/pelvis CT report of the same date for additional findings.
--- NOTE | 2023-09-22 07:55 | CTR_ITS ---
PROCEDURE INFORMATION: Exam: CT Abdomen And Pelvis Without Contrast Exam date and time: 09/22/2023 9:19 AM Age: 58 years old Clinical indication: Other: Septic shock, esrd, decubitus ulcer TECHNIQUE: Imaging protocol: Computed tomography of the abdomen and pelvis without contrast. Radiation optimization: All CT scans at this facility use at least one of these dose optimization techniques: automated exposure control; mA and/or kV adjustment per patient size (includes targeted exams where dose is matched to clinical indication); or iterative reconstruction. REPORTING DATA: Count of CT and Cardiac NM exams in prior 12 months: This patient has received 7 known CTs and 0 known cardiac nuclear medicine studies in the 12 months prior to the current study. COMPARISON: CT pelvis wo con [id number] 09/18/2023 3:14 PM RADIATION DOSE METRICS: Total DLP (mGy-cm): 856.7 FINDINGS: Liver: Normal. No mass. Gallbladder and bile ducts: The gallbladder is surgically absent. Pancreas: Moderate pancreatic atrophy. Spleen: The spleen demonstrates a few small granulomatous calcifications. No splenomegaly. Adrenal glands: Normal. No mass. Kidneys and ureters: Bilateral renal central atrophy. Stomach and bowel: Left lower anterior abdominal sigmoidostomy. Mid sigmoid colonic Travis pouch. Moderately increased stool noted in the ascending and transverse colon. No evidence of bowel obstruction. Appendix: The vermiform appendix is normal. Intraperitoneal space: No intra-abdominal/intrapelvic ascites. No pneumoperitoneum. Vasculature: Moderate aortic atherosclerotic calcification without aneurysm. The iliac arteries show moderate bilateral atherosclerotic calcifications without evidence of aneurysm. Lymph nodes: No enlarged lymph nodes. Urinary bladder: The urinary bladder is drained by a Reed catheter. The urinary bladder is decompressed and difficult to assess. Reproductive: Bilateral vas deferens calcification suggesting diabetes. Bones/joints: Previous distal coccygeal resection. Exposed right lower sacral neural arch (series 4, image 69). No destructive bony process identified. Soft tissues: Streak artifact is present from the patient's left arm at the side. Large sacral decubitus ulcer measuring proximally 10 cm transverse diameter. Small epigastric anterior abdominal wall hernias containing adipose and a small amount of peritoneal fluid. CT/CT abdomen pelvis wo con [id number] IMPRESSION: 1. Prior coccygeal resection. 2. Exposed right lower sacral neural arch. 3. No destructive bony process identified. 4. Left lower anterior abdominal sigmoidostomy. 5. Mid sigmoid colonic Travis pouch. 6. Mild abdominal colonic constipation. 7. Prior cholecystectomy. 8. Please see the CTA chest report of the same date for additional findings.
[2023-09-22] MEDS: insulin lispro 100 unit/1 mL SUBCUT ×3 (08:12→23:49)
[2023-09-22] MEDS: sodium chloride 0.9% 500 ML 999 ML IV (08:13)
[2023-09-22] MEDS: albumin 25 G/100 ML BAG 60 G IV (08:18)
[2023-09-22 08:19] LABS: Glucose Point of Care 265 mg/dL (70-110)
[2023-09-22] MEDS: sodium hypochlorite 0.25% Btl 473 mL 1 APPLIC TOPICAL ×6 (08:34→17:25)
[2023-09-22] MEDS: meropenem 1,000 MG in sodium chloride 0.9% (plus) 50 ML 100 MG IV ×3 (08:56→23:43)
[2023-09-22] MEDS: iohexol 350 mg/mL 500 mL Btl (per mL) IV (09:34)
[2023-09-22] MEDS: pantoprazole DR 40 mg Tablet PO (10:48)
[2023-09-22] MEDS: docusate sodium 100 mg Capsule 200 MG PO (10:48)
[2023-09-22] MEDS: amiodarone 200 mg Tablet PO (10:49)
[2023-09-22] MEDS: clopidogrel 75 mg Tablet PO (10:49)
[2023-09-22] MEDS: norepinephrine 4 MG/250 ML BAG 52.5 MG IV (10:52)
[2023-09-22] MEDS: polyethylene glycol 3350 Pkt 17 gm PO ×2 (10:59→17:05)
[2023-09-22 11:52] LABS: Glucose Point of Care 148 mg/dL (70-110)
[2023-09-22 12:35] LABS: Vancomycin Random 37.4 ug/mL (20.0-40.0)
--- NOTE | 2023-09-22 12:55 | P.PN_ITS ---
Subjective 2 Subjective: continued to have Altered mental status transferred to icu Vitals/I&O/Wt Last Vital Signs Temp 97.9 F 09/22/23 09:00 Pulse 82 09/22/23 11:15 Resp 24 H 09/22/23 07:55 BP 117/60 09/22/23 11:15 Pulse Ox 99 09/22/23 11:15 O2 Del Method BiPAP 09/22/23 07:55 O2 Flow Rate 2 09/21/23 15:32 FiO2 40 09/22/23 07:58 09/21/23 09/22/23 09/22/23 22:59 06:59 14:59 Intake Total 50 / 500 807.75 / 1307.75 697.5 / 697.5 Balance 50 / -2400 807.75 / -1592.25 697.5 / 697.5 Weight last 48 hrs Weight 76.113 kg Weight 73.7 kg Weight 76.34 kg Physical Exam 2 Narrative: lethargic No distress L Urinary Catheter Management: Reed: Cath Placed During This Visit: yes Reason for Continuing Indwelling Catheter: Accurate Measurement of Urinary Output in Critically Ill Patients Urinary Catheter Date of Insertion: 09/16/23 Urinary Catheter Time of Insertion: 01:58 Data 09/22/23 01:15 09/22/23 01:15 A&P Assessment and plan (1) ESRD (end stage renal disease): Plan 1. End-stage renal disease: On TTS schedule as outpatient, has pulmonary edema with hypoxia. - s/p HD yesterday 2. Anemia: Will order TAVON 3. Acute on chronic respiratory failure: Multifactorial secondary to pneumonia and CHF exacerbation 4. History of sacral decubitus wound with diverting colostomy 5. Diabetes type 2 6. Altered mental status Patient evaluated using audiovisual cart. Time spent 20 minutes. Attestations 2 Medical Necessity Statement*: per medicine team Coding Level of Care Code Acute Code for [facility] Fwd Diagnoses ESRD (end stage renal disease) N18.6
[2023-09-22] MEDS: norepinephrine 4 MG/250 ML BAG 48.75 MG IV (16:04)
--- NOTE | 2023-09-22 16:20 | P.PN_ITS ---
Subjective 2 Subjective: Overnight patient had worsening of mentation, hypotension and hypoxia hence he was transferred to ICU and put on BiPAP ventilation and started on Levophed. Today morning on examination patient is on 4 L of oxygen supplementation. His alert to himself and being in the hospital. He is on 14 of Levophed. Blood work shows persistent leukocytosis of 21, hemoglobin of 9.4, appreciate ABG on BiPAP, CMP showing creatinine of 2.3 with potassium of 3.1. Medications: Reviewed: Yes Vitals/I&O/Wt Last Vital Signs Temp 97.9 F 09/22/23 09:00 Pulse 100 09/22/23 15:00 Resp 18 09/22/23 14:39 BP 116/57 09/22/23 15:00 Pulse Ox 94 09/22/23 14:45 O2 Del Method Nasal Cannula 09/22/23 14:00 O2 Flow Rate 4 09/22/23 14:00 FiO2 40 09/22/23 07:58 09/22/23 09/22/23 09/22/23 06:59 14:59 22:59 Intake Total 807.75 / 1307.75 747.5 / 747.5 250 / 997.5 Balance 807.75 / -1592.25 747.5 / 747.5 250 / 997.5 Weight last 48 hrs Weight 76.113 kg Weight 73.7 kg Weight 76.34 kg Physical Exam 2 Narrative: General: No acute distress, confused, alert and oriented to self and place, on nasal cannula HEENT: PERRLA, pupils bilaterally equal and reactive Chest: Bilateral bronchial breath sounds with occasional rhonchi, coarse crackles present bilateral lower zone CVS: S1-S2 regular, no murmurs, no tachycardia, no gallops, no rubs Abdomen: Soft, nontender, no organomegaly, bowel sounds present, morbidly obese Neuro: No focal deficits, no facial deformity, AO x3, power 5/5 in all limbs Urinary Catheter Management: Reed: Cath Placed During This Visit: yes Reason for Continuing Indwelling Catheter: Accurate Measurement of Urinary Output in Critically Ill Patients Urinary Catheter Date of Insertion: 09/16/23 Urinary Catheter Time of Insertion: 01:58 Data 09/22/23 01:15 09/22/23 01:15 A&P Assessment and plan (1) Septic shock: Blood cultures from 09/15 negative, sputum culture appreciated. Patient has remained afebrile. Will repeat blood cultures. Check stool for C. difficile. Will repeat CT chest abdomen pelvis. Keep mean artery pressure 65. Wean Levophed accordingly. Start patient on midodrine 5 mg 3 times daily. Patient has poor IV access. Plan for PICC line placement. (2) Respiratory failure: Patient presents with acute hypoxic respiratory failure. High concerns for aspiration pneumonitis along with congestive heart failure. Sputum culture growing Klebsiella and MRSA. Keep NPO. Speech evaluation. Discussed in detail with family at bedside. They will think further about PEG tube placement. Oxygen supplementation keeping saturation over 90%. DuoNebs every 6 hour, Pulmicort twice daily. For now start patient on Solu-Medrol 40 mg every 8 hourly. There is a concern for congestive heart failure as well. Patient is on dialysis. D-dimer elevated yesterday. Will plan for CTA chest. (3) Pneumonia: Sputum culture growing Klebsiella and MRSA. Continue with IV vancomycin. Patient continues to have respiratory failure with persistent leukocytosis. For now we will switch from Zosyn to meropenem. COVID-[address] chest on admission. (4) MRSA pneumonia: (5) Klebsiella pneumonia: (6) Congestive heart failure: Patient with history of congestive heart failure Last echo poor quality, LV mildly reduced Appreciate nephrology intervention with dialysis (7) CKD (chronic kidney disease), stage V: Patient with end-stage renal disease, receiving hemodialysis through dialysis catheter right IJ. Appreciate nephrology consultation (8) Diabetes: Continue long-acting insulin, reduced amount Sliding scale insulin Speech therapy consultation Aspiration precautions (9) Afib: Continue amiodarone (10) Hypoxia: (11) Decubitus ulcer: Stage III decubitus pressure ulcer on the right and left buttock Stage IV pressure ulcer on sacral (12) Acute metabolic encephalopathy: (13) Goals of care, counseling/discussion: Plan Hypoglycemia: Patient was hypoglycemic earlier today morning. Continue with insulin sliding scale every 6 hourly at low-dose protocol. Starting on Solu-Medrol today. Will continue to monitor. Goals of care: Had extensive goals of care discussion with patient's daughter today at bedside. They want patient to remain full code. As per them his mentation has gotten worse very recently within the last 3 days and has physical mobility had gotten worse over last 3 to 4 months when he has become bedbound before that he was able to move around in the wheelchair. Family is okay with patient being full code. Does not want tracheostomy. When asked about PEG tube they would want to think further before making any decision. Full code N.p.o. Protonix for PUD prophylaxis Heparin 5000 every 12 hourly for DVT prophylaxis. Attestations 2 Medical Necessity Statement*: Requires further hospitalization for management of septic shock, respiratory failure in setting of high concerns for aspiration pneumonitis, MRSA and Klebsiella pneumonia, congestive heart failure, altered mental status Coding Level of Care Code Critical Care >/= 30 minutes Critical care time (in minutes): 70 The high probability of a clinically significant, sudden or life threatening deterioration, as referenced in this documentation, required my full and direct attention, intervention and personal management. The critical care time shown is in addition to time spent performing any reported separately billable procedures and includes the following: [x] Data and vital sign review and interpretation [x ] Patient assessment, examination and intervention [x] Medication orders and management [x] Patient/Family updates as able [x] Care Coordination and Documentation. Diagnoses Septic shock A41.9; R65.21 Respiratory failure J96.90 Pneumonia J18.9 MRSA pneumonia J15.212 Klebsiella pneumonia J15.0 Congestive heart failure I50.9 CKD (chronic kidney disease), stage V N18.5 Diabetes E11.9 Afib I48.91 Hypoxia R09.02 Decubitus ulcer L89.90 Acute metabolic encephalopathy G93.41 Goals of care, counseling/discussion Z71.89
[2023-09-22] MEDS: midodrine 5 mg TABLET 10 MG PO ×2 (16:43→23:42)
[2023-09-22] MEDS: methylPREDNISolone sod succ 40 mg/mL INJ IVP (16:47)
[2023-09-22] MEDS: acetaminophen 500 mg Tablet PO (20:49)
[2023-09-22 22:12] LABS: Glucose Point of Care 238 mg/dL (70-110)
--- NOTE | 2023-09-22 23:16 | XRR_ITS ---
PROCEDURE INFORMATION: Exam: XR Chest Exam date and time: 09/22/2023 11:18 PM Age: 58 years old Clinical indication: Device placement; Patient HX: Check S/P RT picc placement. Unable to lay supine due to large ducubitus ulcer to left buttocks. ; Additional info: Picc line placement TECHNIQUE: Imaging protocol: Radiologic exam of the chest. Views: 1 view. COMPARISON: CT angio chest PE protcl [id number] 09/22/2023 9:19 AM FINDINGS: Tubes, catheters and devices: Right-sided PICC line with tip extending to the region of the right atrium. Right-sided central venous catheter with tip extending to the region of the right atrium. Lungs: Patchy bilateral right greater than left airspace infiltrates. Pleural spaces: Moderate right pleural effusion. Heart/Mediastinum: Cardiomegaly. Bones/joints: Unremarkable. XR/XR chest 1V portable [id number] IMPRESSION: 1. Right-sided PICC line with tip extending to the region of the right atrium. 2. Right-sided central venous catheter with tip extending to the region of the right atrium. 3. Patchy bilateral right greater than left airspace infiltrates. 4. Moderate right pleural effusion. 5. Cardiomegaly.
--- NOTE | 2023-09-22 23:36 | PC.NURSE ---
Consent obtained by myself and patient. All risk and benefits discussed. risk included but not limoted to dvt and infection. Rue scanned with US and basilic vein was the best option. Vein was straight, 4 mm, and free of visible clot. Ptdraped in usual sterile fashion. Using real time US, lidocaine injected, vein accessed, and picc floated into position. Chest xray obtained and waiting confirmation. EBL less then 5 ml. No bleeding no hematoma.
--- NOTE | 2023-09-22 23:39 | PC.NURSE ---
Consent obtained by myself and patient. All risk and benefits discussed. risk included but not limoted to dvt and infection. Lue scanned with US and basilic vein was the best option. Vein was straight, 4 mm, and free of visible clot. Pt draped in usual sterile fashion. Using real time US, lidocaine injected, vein accessed, and picc was unable to be floated into position. Picc trimmed to midline for now to ask dr if picc is needed. EBL less then 5 ml. No bleeding no hematoma. This is a midline.
[2023-09-22] MEDS: aspirin 81 mg EC Tablet PO (23:41)
[2023-09-22] MEDS: tamsulosin 0.4 mg Capsule 0.8 MG PO (23:42)
[2023-09-22] MEDS: norepinephrine 4 MG/250 ML BAG 63.75 MG IV (23:46)
[2023-09-23] VITALS (86 sets, daily range): BP systolic 63–156; BP diastolic 23–75; PULSE 80–103; RESP 12–25; TEMP 36.4–36.6; O2SAT 86–100
[2023-09-23] MEDS: vancomycin 1,000 MG in sodium chloride 0.9% 250 ML 250 MG IV ×2 (00:05→22:28)
[2023-09-23] MEDS: sodium chloride 0.9% 500 ML 999 ML IV (00:06)
--- NOTE | 2023-09-23 00:24 | PC.NURSE ---
PICC line for levophed use and midline where placed. Xray confirmation was acquired.
[2023-09-23] MEDS: methylPREDNISolone sod succ 125 mg/2 mL INJ 100 MG IVP (00:38)
[2023-09-23] MEDS: heparin 5,000 unit/mL INJ 1 mL 5000 UNIT SUBCUT ×2 (00:39→14:46)
[2023-09-23] MEDS: vasopressin 40 UNIT/100 ML PREMIX IV (00:39)
[2023-09-23 02:05] LABS: Glucose Point of Care 398 mg/dL (70-110)
[2023-09-23] MEDS: insulin lispro 100 unit/1 mL SUBCUT ×4 (02:05→19:58)
[2023-09-23] MEDS: ipratropium-albuterol 3 mL Neb INHALATION ×2 (02:53→19:40)
[2023-09-23] MEDS: norepinephrine 4 MG/250 ML BAG 75 MG IV ×2 (03:05→06:32)
[2023-09-23 04:48] LABS: Basophils # 0.1 10^3/uL (0.0-0.1); Basophils % 0.2 %; Hematocrit 27.7 % (37-53); Lymphocytes # 0.7 10^3/uL (0.8-4.8); Lymphocytes % 3.2 %; Mean Corpuscular HGB Conc 28.2 g/dL (30-55); Mean Corpuscular Hemoglobin 28.8 pg (27-33); Mean Corpuscular Volume 102.2 fl (82-101); Mean Platelet Volume 8.8 fL (7.4-10.4); Monocytes # 0.3 10^3/uL (0.2-0.9); Monocytes % 1.5 %; Neutrophils # 20.18 10^3/uL (1.8-7.7); Neutrophils % 93.7 %; Nucleated Red Blood Cells % 0 %; Platelet Count 656 10^3/cmm (157-399); Red Blood Count 2.71 10^6/uL (3.85-5.65); Red Cell Distribution Width 20.2 % (12.1-15.1); White Blood Count 21.57 10^3/uL (3.29-11.43)
[2023-09-23 05:10] LABS: Magnesium 2.2 mg/dL (1.7-2.3)
[2023-09-23 05:21] LABS: Alanine Aminotransferase 11 U/L (0-41); Albumin Level 3.2 g/dL (3.5-5.2); Alkaline Phosphatase 85 U/L (40-130); Anion Gap 28.9 (5-19); Aspartate Amino Transferase 14 U/L (0-40); Blood Urea Nitrogen 24 mg/dL (6-20); Calcium 8.7 mg/dL (8.5-10.5); Carbon Dioxide 14 mmol/L (22-29); Chloride 94 mmol/L (98-107); Globulin 2.8 g/dL (1.3-4.6); Glomerular Filtration Rate 16.1 mL/min (90-130); Glucose 332 mg/dL (65-115); Osmolality Calculated 293 mOsm/kg (285-295); Potassium 3.9 mmol/L (3.5-5.1); Sodium 133 mmol/L (136-145); Total Bilirubin 0.3 mg/dL (0.15-1.2)
--- NOTE | 2023-09-23 08:11 | XR_ITS ---
WS: [id number] PORTABLE CHEST HISTORY: Post PICC rectraction COMPARISON: 09/22/2023 Right-sided PICC line has been retracted and now terminates in the mid SVC. Hazy attenuation throughout both lungs. Small RIGHT pleural effusion with mild edema. Cardiac size: Mildly enlarged cardiac silhouette. Mediastinum/Aorta: Normal mediastinum. No osseous abnormality seen. Patient has a dialysis catheter. IMPRESSION: Interval repositioning of the RIGHT PICC line now in good position.
--- NOTE | 2023-09-23 08:55 | PC.NURSE ---
This nurse noted that chest xray of overnight PICC placement shows tip in right atrium. Dr. Elena, radiologist, consulted and recommendation made to retract PICC 2-3 cm. PICC retracted 2 cm and repeat chest xray obtained. PICC now in SVC, in good position for use per radiologist.
[2023-09-23] MEDS: oxyCODONE 5 mg IR Tab/Cap 10 MG PO ×2 (09:15→20:06)
[2023-09-23 09:23] LABS: Glucose Point of Care 348 mg/dL (70-110)
[2023-09-23] MEDS: amiodarone 200 mg Tablet PO (09:29)
[2023-09-23] MEDS: docusate sodium 100 mg Capsule 200 MG PO (09:29)
[2023-09-23] MEDS: clopidogrel 75 mg Tablet PO (09:29)
[2023-09-23] MEDS: meropenem 1,000 MG in sodium chloride 0.9% (plus) 50 ML 100 MG IV (09:29)
[2023-09-23] MEDS: midodrine 5 mg TABLET 10 MG PO ×3 (09:29→19:59)
[2023-09-23] MEDS: methylPREDNISolone sod succ 40 mg/mL INJ IVP ×2 (09:30→17:59)
[2023-09-23] MEDS: pantoprazole DR 40 mg Tablet PO (09:30)
[2023-09-23] MEDS: sodium hypochlorite 0.25% Btl 473 mL 1 APPLIC TOPICAL ×2 (09:30→18:03)
--- NOTE | 2023-09-23 10:26 | P.PN_ITS ---
Subjective 2 Subjective: mental status slightly better on pressors Medications: Reviewed: Yes Vitals/I&O/Wt Last Vital Signs Temp 98.6 F 09/22/23 22:16 Pulse 90 09/23/23 10:15 Resp 23 H 09/23/23 10:15 BP 121/32 09/23/23 10:15 Pulse Ox 98 09/23/23 10:15 O2 Del Method Nasal Cannula 09/23/23 08:00 O2 Flow Rate 3 09/23/23 08:00 FiO2 40 09/22/23 07:58 09/22/23 09/23/23 09/23/23 22:59 06:59 14:59 Intake Total 610.000 / 1357.500 548.563 / 1906.063 163.250 / 163.250 Output Total 175 / 175 Balance 435.000 / 1182.500 548.563 / 1731.063 163.250 / 163.250 Weight last 48 hrs Weight 76.204 kg Weight 76.113 kg Weight 73.7 kg Physical Exam 2 Narrative: awake , alert No distress L Urinary Catheter Management: Reed: Cath Placed During This Visit: yes Reason for Continuing Indwelling Catheter: Accurate Measurement of Urinary Output in Critically Ill Patients Urinary Catheter Date of Insertion: 09/16/23 Urinary Catheter Time of Insertion: 01:58 Data 09/23/23 04:01 09/23/23 04:01 Micro: Microbiology 09/22/23 18:21 Blood Culture - Preliminary Blood SPECIMEN COLLECTED 09/22/23 17:38 Blood Culture - Preliminary Blood SPECIMEN COLLECTED A&P Assessment and plan (1) ESRD (end stage renal disease): Plan 1. End-stage renal disease: On TTS schedule as outpatient, has pulmonary edema with hypoxia. - s/p HD saturday and next HD in [place] 2. Anemia: order TAVON 3. Acute on chronic respiratory failure: Multifactorial secondary to pneumonia and CHF exacerbation 4. History of sacral decubitus wound with diverting colostomy 5. Diabetes type 2 6. Altered mental status Patient evaluated using audiovisual cart. Time spent 20 minutes. Attestations 2 Medical Necessity Statement*: per medicine team Coding Level of Care Code Acute Code for [facility] Fwd Diagnoses ESRD (end stage renal disease) N18.6
[2023-09-23] MEDS: norepinephrine 4 MG/250 ML BAG 7.5 MG IV (11:08)
--- NOTE | 2023-09-23 13:49 | P.PN_ITS ---
Subjective 2 Subjective: Reports he is not very comfortable in bed, wanted to be repositioned, wanted his pillow to be repositioned under his head, which we did. Denies dyspnea currently. Denies producing phlegm. No chest pain. Oriented to place and year, does not remember how or why he is in the hospital. Vitals/I&O/Wt Last Vital Signs Temp 98.6 F 09/22/23 22:16 Pulse 90 09/23/23 13:46 Resp 16 09/23/23 13:46 BP 121/32 09/23/23 10:15 Pulse Ox 95 09/23/23 13:46 O2 Del Method Nasal Cannula 09/23/23 13:46 O2 Flow Rate 3 09/23/23 13:46 FiO2 40 09/22/23 07:58 09/22/23 09/23/23 09/23/23 22:59 06:59 14:59 Intake Total 610.000 / 1357.500 548.563 / 1906.063 163.250 / 163.250 Output Total 175 / 175 Balance 435.000 / 1182.500 548.563 / 1731.063 163.250 / 163.250 Weight last 48 hrs Weight 76.204 kg Weight 76.113 kg Physical Exam 2 Const: COMMON NORMALS: alert GENERAL APPEARANCE: cooperative O RIENTATION/CONSCIOUSNESS: Yes awake HENMT: COMMON NORMALS: oropharynx normal Neck/C-Spine: COMMON NORMALS: no JVD Resp: COMMON NORMALS: normal respiratory effort and clear to auscultation bilaterally AUSCULTATION: clear to auscultation bilaterally Cardio: COMMON NORMALS: no JVD, regular rhythm, S1 normal heart sound present, S2 normal heart sound present and No murmurs present (Cardio) RHYTHM: regular rhythm HEART SOUNDS: S1 normal heart sound present and S2 normal heart sound present GI: COMMON NORMALS: Normal to inspection, nondistended, normoactive bowel sounds present, Soft to palpation and non-tender PALPATION: Yes Soft to palpation Extremity: COMMON NORMALS: no joint enlargement and no pedal edema N ARRATIVE EXTREMITY EXAM: R BKA Neuro: COMMON NORMALS: moves all extremities SENSORIUM/ORIENTATION: Yes alert Skin: OTHER: Chronic stasis changes on LLE Urinary Catheter Management: Reed: Cath Placed During This Visit: yes Reason for Continuing Indwelling Catheter: Accurate Measurement of Urinary Output in Critically Ill Patients Urinary Catheter Date of Insertion: 09/16/23 Urinary Catheter Time of Insertion: 01:58 Data 09/23/23 04:01 09/23/23 04:01 Micro: Microbiology 09/22/23 18:21 Blood Culture - Preliminary Blood SPECIMEN COLLECTED 09/22/23 17:38 Blood Culture - Preliminary Blood SPECIMEN COLLECTED A&P Assessment and plan (1) Septic shock: Improving. Still on pressor, 2 mcg/min Levophed. Continue to treat pneumonia. Wean down pressors as tolerating. Reviewed blood cultures, so far negative. Reviewed sputum culture, 09/16 MRSA, Klebsiella pneumonia. Blood cultures from 09/15 negative, sputum culture appreciated. Patient has remained afebrile. Reviewed C. difficile. Pending. Has had PICC line placed, reviewed chest x-ray PICC line in good position after repositioning. Reviewed CT abdomen pelvis, prior coccygeal resection, exposed right lower sacral neural arch no destructive bony process identified. Left lower anterior abdominal sigmoidostomy. Mid sigmoid colon Travis pouch. Mild abdominal colonic constipation. Prior cholecystectomy. CTA chest moderate right pleural effusion. Right lower lobe pulmonary partial atelectasis. Cavitary lesion superior lingula and left lung base possibility of cavitary lesion, septic emboli felt less likely. Rounded foci of consolidation bilateral lower lobes. Pneumonitis suspected. Follow-up to confirm clearing recommended. Focal areas of mild bronchiectasis. No PE. Keep mean artery pressure 65. Wean Levophed accordingly. Start patient on midodrine 5 mg 3 times daily. (2) Respiratory failure: Respiratory failure, aspiration pneumonia, congestive heart failure. Patient with blood pressure ulcers, eating and drinking while reclined in bed due to discomfort and inability to sit upright. Risk of aspiration recurrence. Speech therapy follow up. Patient presents with acute hypoxic respiratory failure. High concerns for aspiration pneumonitis along with congestive heart failure. Sputum culture growing Klebsiella and MRSA. Keep NPO. Speech evaluation. Family to consider PEG Solu-Medrol overnight increased to 100 mg twice daily. Will for now reduce to 40 mg every 8 hours. CHF now appears more compensated although still moderate pleural effusion. Oxygen supplementation keeping saturation over 90%. DuoNebs every 6 hour, Pulmicort twice daily. D-dimer elevated yesterday. No PE on review of CTA. (3) Pneumonia: Continues on meropenem, vancomycin due to Klebsiella, MRSA infection. CT chest obtained yesterday morning with moderate right pleural effusion, right lower lobe pulm atelectasis, cavitary lesion superior lingula and left lung base possibly cavitary lesion. Moderate pleural effusion, suspect secondary to CHF, however, does have pneumonia, cannot entirely exclude parapneumonic effusion. Does have leukocytosis. Afebrile. Oxygenation with overall improvement. He is on aspirin Plavix, prophylactic heparin. Attempts to redirect. Additionally discussed about consideration of thoracentesis, risks and benefits. Could not reach his daughter so far to discuss. COVID-[address] chest on admission. (4) MRSA pneumonia: (5) Klebsiella pneumonia: (6) Congestive heart failure: About 3 kg below the weight of admission, weight measurement has been fluctuating, and does not appear to be particularly reliable. Overall volume status patient improving, but does still have moderate pleural effusion. Patient with history of congestive heart failure Last echo poor quality, LV mildly reduced Appreciate nephrology intervention with dialysis (7) CKD (chronic kidney disease), stage V: Patient with end-stage renal disease, receiving hemodialysis through dialysis catheter right IJ. Appreciate nephrology consultation (8) Diabetes: Continue long-acting insulin, reduced amount Sliding scale insulin Speech therapy consultation Aspiration precautions (9) Afib: Continue amiodarone (10) Hypoxia: (11) Decubitus ulcer: Stage III decubitus pressure ulcer on the right and left buttock Stage IV pressure ulcer on sacral (12) Acute metabolic encephalopathy: (13) Goals of care, counseling/discussion: Plan Hypoglycemia: Noted on the morning of 09/22. Will not intensify insulin regimen for now. Monitor. Is on Solu-Medrol. Full code N.p.o. Protonix for PUD prophylaxis Heparin 5000 every 12 hourly for DVT prophylaxis. Attestations 2 Medical Necessity Statement*: Continue admission for assessment management of complicated pneumonia, aspiration pneumonia, CHF exacerbation and gentleman with end-stage kidney disease on dialysis. Coding Level of Care Code Critical Care >/= 30 minutes Critical care time (in minutes): 40 The high probability of a clinically significant, sudden or life threatening deterioration, as referenced in this documentation, required my full and direct attention, intervention and personal management. The critical care time shown is in addition to time spent performing any reported separately billable procedures and includes the following: [x] Data and vital sign review and interpretation [x ] Patient assessment, examination and intervention [x] Medication orders and management [x] Patient/Family updates as able [x] Care Coordination and Documentation. Diagnoses Septic shock A41.9; R65.21 Respiratory failure J96.90 Pneumonia J18.9 MRSA pneumonia J15.212 Klebsiella pneumonia J15.0 Congestive heart failure I50.9 CKD (chronic kidney disease), stage V N18.5 Diabetes E11.9 Afib I48.91 Hypoxia R09.02 Decubitus ulcer L89.90 Acute metabolic encephalopathy G93.41 Goals of care, counseling/discussion Z71.89
--- NOTE | 2023-09-23 14:09 | PC.SOCIAL ---
IMM Update Called & updated pt's daughter on IMM. No questions voiced. Provided pt a copy. Initialed, dated, & timed copy in chart.
[2023-09-23 14:53] LABS: Glucose Point of Care 279 mg/dL (70-110)
[2023-09-23] MEDS: epoetin alfa 1000 Unit/0.05 mL (non-esrd) 20000 UNIT SUBCUT (16:22)
[2023-09-23] MEDS: polyethylene glycol 3350 Pkt 17 gm PO (18:02)
--- NOTE | 2023-09-23 18:58 | PC.NURSE ---
Shift Note: per Dr. Ngo okay to leave Fentanyl at 12.5, goal to have on minimal sedation overnight may attempt to extubate tomorrow. Tolerated being on CPAP mode on vent throughout shift
[2023-09-23 19:38] LABS: Glucose Point of Care 204 mg/dL (70-110)
[2023-09-23] MEDS: budesonide 0.5 mg/2 mL Neb INHALATION (19:40)
[2023-09-23] MEDS: tamsulosin 0.4 mg Capsule 0.8 MG PO (19:59)
[2023-09-23] MEDS: aspirin 81 mg EC Tablet PO (19:59)
[2023-09-23] MEDS: meropenem 500 MG in sodium chloride 0.9% (plus) 50 ML 100 MG IV (21:53)
[2023-09-24] VITALS (88 sets, daily range): BP systolic 78–164; BP diastolic 27–79; PULSE 82–116; RESP 14–21; TEMP 36.4–36.7; O2SAT 91–100
[2023-09-24] MEDS: methylPREDNISolone sod succ 40 mg/mL INJ IVP ×3 (00:38→16:01)
[2023-09-24] MEDS: heparin 5,000 unit/mL INJ 1 mL 5000 UNIT SUBCUT ×2 (00:39→12:02)
[2023-09-24] MEDS: ipratropium-albuterol 3 mL Neb INHALATION ×2 (01:39→19:40)
[2023-09-24] MEDS: insulin lispro 100 unit/1 mL SUBCUT ×4 (02:21→22:08)
[2023-09-24 04:02] LABS: Glucose Point of Care 237 mg/dL (70-110)
[2023-09-24 07:04] LABS: Basophils # 0.1 10^3/uL (0.0-0.1); Basophils % 0.3 %; Hematocrit 26.9 % (37-53); Lymphocytes # 0.7 10^3/uL (0.8-4.8); Lymphocytes % 3.8 %; Mean Corpuscular Hemoglobin 28.7 pg (27-33); Mean Corpuscular Volume 98.9 fl (82-101); Mean Platelet Volume 8.9 fL (7.4-10.4); Monocytes # 0.6 10^3/uL (0.2-0.9); Monocytes % 3.4 %; Neutrophils # 15.79 10^3/uL (1.8-7.7); Neutrophils % 91.6 %; Nucleated Red Blood Cells % 0 %; Platelet Count 372 10^3/cmm (157-399); Red Blood Count 2.72 10^6/uL (3.85-5.65); Red Cell Distribution Width 20.3 % (12.1-15.1); White Blood Count 17.24 10^3/uL (3.29-11.43)
[2023-09-24 07:28] LABS: Blood Urea Nitrogen 39 mg/dL (6-20); Calcium 8.7 mg/dL (8.5-10.5); Carbon Dioxide 17 mmol/L (22-29); Chloride 96 mmol/L (98-107); Glomerular Filtration Rate 12.6 mL/min (90-130); Glucose 206 mg/dL (65-115); Magnesium 2.4 mg/dL (1.7-2.3); Osmolality Calculated 287 mOsm/kg (285-295); Phosphorus 5.4 mg/dL (2.5-4.5); Sodium 131 mmol/L (136-145)
[2023-09-24 07:46] LABS: Glucose Point of Care 246 mg/dL (70-110)
[2023-09-24 07:46] LABS: Anion Gap 21.5 (5-19); Potassium 3.5 mmol/L (3.5-5.1)
[2023-09-24] MEDS: amiodarone 200 mg Tablet PO (08:40)
[2023-09-24] MEDS: docusate sodium 100 mg Capsule 200 MG PO (08:40)
[2023-09-24] MEDS: clopidogrel 75 mg Tablet PO (08:40)
[2023-09-24] MEDS: polyethylene glycol 3350 Pkt 17 gm PO (08:41)
[2023-09-24] MEDS: meropenem 500 MG in sodium chloride 0.9% (plus) 50 ML 100 MG IV ×2 (08:41→22:31)
[2023-09-24] MEDS: midodrine 5 mg TABLET 10 MG PO ×3 (08:41→22:10)
[2023-09-24] MEDS: pantoprazole DR 40 mg Tablet PO (08:41)
[2023-09-24] MEDS: sodium hypochlorite 0.25% Btl 473 mL 1 APPLIC TOPICAL ×2 (08:41→17:12)
[2023-09-24] MEDS: epoetin alfa 10,000 unit/mL INJ 20000 UNIT SUBCUT (08:42)
[2023-09-24] MEDS: oxyCODONE 5 mg IR Tab/Cap 10 MG PO ×2 (08:44→16:06)
[2023-09-24] MEDS: heparin, porcine 1,000 unit/mL INJ 10 mL 1000 UNIT IV (11:07)
[2023-09-24 12:19] LABS: Glucose Point of Care 172 mg/dL (70-110)
[2023-09-24 13:59] LABS: Clostridium Difficile PCR DETECTED (NOT DETECTED)
[2023-09-24] MEDS: heparin, porcine 1,000 unit/mL INJ 10 mL 10000 UNIT INTRACATH (14:10)
--- NOTE | 2023-09-24 17:56 | P.PN_ITS ---
Subjective 2 Subjective: getting HD today Medications: Reviewed: Yes Vitals/I&O/Wt Last Vital Signs Temp 97.5 F L 09/24/23 14:18 Pulse 89 09/24/23 17:45 Resp 16 09/24/23 17:45 BP 120/47 09/24/23 17:45 Pulse Ox 100 09/24/23 17:45 O2 Del Method Nasal Cannula 09/24/23 08:00 O2 Flow Rate 3 09/24/23 08:00 FiO2 40 09/22/23 07:58 09/24/23 09/24/23 09/24/23 06:59 14:59 22:59 Intake Total 250 / 546.425 300 / 300 Output Total 50 / 50 3175 / 3175 Balance 200 / 496.425 -2875 / -2875 Weight last 48 hrs Weight 74.5 kg Weight 77.927 kg Weight 76.204 kg Physical Exam 2 Narrative: awake , alert No distress L Urinary Catheter Management: Reed: Cath Placed During This Visit: yes Reason for Continuing Indwelling Catheter: Accurate Measurement of Urinary Output in Critically Ill Patients Urinary Catheter Date of Insertion: 09/16/23 Urinary Catheter Time of Insertion: 01:58 Data 09/24/23 06:10 09/24/23 06:10 Micro: Microbiology 09/22/23 18:21 Blood Culture - Preliminary Blood NEGATIVE TO DATE 09/22/23 17:38 Blood Culture - Preliminary Blood NEGATIVE TO DATE A&P Assessment and plan (1) ESRD (end stage renal disease): Plan 1. End-stage renal disease: On TTS schedule as outpatient, has pulmonary edema with hypoxia. - s/p HD saturday and next HD today 2. Anemia: order TAVON 3. Acute on chronic respiratory failure: Multifactorial secondary to pneumonia and CHF exacerbation 4. History of sacral decubitus wound with diverting colostomy 5. Diabetes type 2 6. Altered mental status Patient evaluated using audiovisual cart. Time spent 20 minutes. Attestations 2 Medical Necessity Statement*: per medicine team Coding Level of Care Code Acute Code for [facility] Fwd Diagnoses ESRD (end stage renal disease) N18.6
[2023-09-24] MEDS: budesonide 0.5 mg/2 mL Neb INHALATION (19:40)
--- NOTE | 2023-09-24 20:55 | P.PN_ITS ---
Subjective 2 Subjective: This morning reports he is doing all right. Denies any new symptoms or complaints. Vitals/I&O/Wt Last Vital Signs Temp 97.5 F L 09/24/23 14:18 Pulse 83 09/24/23 19:43 Resp 18 09/24/23 19:43 BP 120/47 09/24/23 17:45 Pulse Ox 96 09/24/23 19:43 O2 Del Method Nasal Cannula 09/24/23 19:43 O2 Flow Rate 3 09/24/23 19:43 FiO2 40 09/22/23 07:58 09/24/23 09/24/23 09/24/23 06:59 14:59 22:59 Intake Total 250 / 546.425 300 / 300 Output Total 50 / 50 3175 / 3175 Balance 200 / 496.425 -2875 / -2875 Weight last 48 hrs Weight 74.5 kg Weight 77.927 kg Weight 76.204 kg Physical Exam 2 Const: COMMON NORMALS: alert GENERAL APPEARANCE: cooperative O RIENTATION/CONSCIOUSNESS: Yes awake HENMT: COMMON NORMALS: oropharynx normal Neck/C-Spine: COMMON NORMALS: no JVD Resp: COMMON NORMALS: normal respiratory effort and clear to auscultation bilaterally AUSCULTATION: clear to auscultation bilaterally Cardio: COMMON NORMALS: no JVD, regular rhythm, S1 normal heart sound present, S2 normal heart sound present and No murmurs present (Cardio) RHYTHM: regular rhythm HEART SOUNDS: S1 normal heart sound present and S2 normal heart sound present GI: COMMON NORMALS: Normal to inspection, nondistended, normoactive bowel sounds present, Soft to palpation and non-tender PALPATION: Yes Soft to palpation Extremity: COMMON NORMALS: no joint enlargement and no pedal edema N ARRATIVE EXTREMITY EXAM: R BKA Neuro: COMMON NORMALS: moves all extremities SENSORIUM/ORIENTATION: Yes alert Skin: OTHER: Chronic stasis changes on LLE Urinary Catheter Management: Reed: Cath Placed During This Visit: yes Reason for Continuing Indwelling Catheter: Accurate Measurement of Urinary Output in Critically Ill Patients Urinary Catheter Date of Insertion: 09/16/23 Urinary Catheter Time of Insertion: 01:58 Data 09/24/23 06:10 09/24/23 06:10 Micro: Microbiology 09/22/23 18:21 Blood Culture - Preliminary Blood NEGATIVE TO DATE 09/22/23 17:38 Blood Culture - Preliminary Blood NEGATIVE TO DATE A&P Assessment and plan (1) Septic shock: This morning still on 2 mcg/min Levophed support, although blood pressure is improving but he is about to start hemodialysis as well. Monitor blood pressure. Wean off pressor support. At risk of shock, organ injury. With finding of C. difficile colitis. Reviewed vitals, CBC, CMP. Decreased on Medrol Dosepak to 20 milligram. Reviewed blood cultures, so far negative. Reviewed sputum culture, 09/16 MRSA, Klebsiella pneumonia. Blood cultures from 09/15 negative, sputum culture appreciated. Patient has remained afebrile. Reviewed C. difficile noted detected. Start oral vancomycin for C. difficile colitis. Continue isolation. At risk of hypovolemia. Given dose of albumin. Reassess, consider repeat. Acute encephalopathy with improvement. Speech therapy note reviewed trial of oral diet. Mildly thick liquids, extremely thick pur?ed consistency. Has had PICC line placed, reviewed chest x-ray PICC line in good position after repositioning. Reviewed CT abdomen pelvis, prior coccygeal resection, exposed right lower sacral neural arch no destructive bony process identified. Left lower anterior abdominal sigmoidostomy. Mid sigmoid colon Travis pouch. Mild abdominal colonic constipation. Prior cholecystectomy. CTA chest moderate right pleural effusion. Right lower lobe pulmonary partial atelectasis. Cavitary lesion superior lingula and left lung base possibility of cavitary lesion, septic emboli felt less likely. Rounded foci of consolidation bilateral lower lobes. Pneumonitis suspected. Follow-up to confirm clearing recommended. Focal areas of mild bronchiectasis. No PE. Keep mean artery pressure 65. Wean Levophed accordingly. Start patient on midodrine 5 mg 3 times daily. (2) Respiratory failure: Respiratory failure, aspiration pneumonia, congestive heart failure. Patient with blood pressure ulcers, eating and drinking while reclined in bed due to discomfort and inability to sit upright. Risk of aspiration recurrence. Speech therapy follow up. Patient presents with acute hypoxic respiratory failure. High concerns for aspiration pneumonitis along with congestive heart failure. Sputum culture growing Klebsiella and MRSA. Trial of oral diet, Mild thick liquids, extremely thick/pur?ed consistency. Aspiration precautions. Solu-Medrol overnight increased to 100 mg twice daily. Will for now reduce to 40 mg every 8 hours. CHF now appears more compensated although still moderate pleural effusion. Oxygen supplementation keeping saturation over 90%. DuoNebs every 6 hour, Pulmicort twice daily. D-dimer elevated yesterday. No PE on review of CTA. (3) Pneumonia: Continues on meropenem, vancomycin due to Klebsiella, MRSA infection. CT chest obtained yesterday morning with moderate right pleural effusion, right lower lobe pulm atelectasis, cavitary lesion superior lingula and left lung base possibly cavitary lesion. Reassessment chest x-ray reviewed, noted small pleural effusion now. Previously moderate pleural effusion, suspect secondary to CHF, however, does have pneumonia, cannot entirely exclude parapneumonic effusion. Does have leukocytosis. Afebrile. Oxygenation with overall improvement. He is on aspirin Plavix, prophylactic heparin. Attempts to redirect. Additionally discussed about consideration of thoracentesis, risks and benefits. Could not reach his daughter so far to discuss. COVID-[address] chest on admission. (4) MRSA pneumonia: (5) Klebsiella pneumonia: (6) Congestive heart failure: About 3 kg below the weight of admission, weight measurement has been fluctuating, and does not appear to be particularly reliable. Overall volume status patient improving, but does still have moderate pleural effusion. Patient with history of congestive heart failure Last echo poor quality, LV mildly reduced Appreciate nephrology intervention with dialysis (7) CKD (chronic kidney disease), stage V: Patient with end-stage renal disease, receiving hemodialysis through dialysis catheter right IJ. Appreciate nephrology consultation (8) Diabetes: Continue long-acting insulin, reduced amount Sliding scale insulin Speech therapy consultation Aspiration precautions (9) Afib: Continue amiodarone (10) Hypoxia: (11) Decubitus ulcer: Stage III decubitus pressure ulcer on the right and left buttock Stage IV pressure ulcer on sacral (12) Acute metabolic encephalopathy: (13) Goals of care, counseling/discussion: Plan Hypoglycemia: Noted on the morning of 09/22. Will not intensify insulin regimen for now. Monitor. Is on Solu-Medrol. Full code CLD Protonix for PUD prophylaxis Heparin 5000 every 12 hourly for DVT prophylaxis. Attestations 2 Medical Necessity Statement*: Continue admission for assessment management of septic shock, complicated pneumonia, C. difficile colitis and gentleman with ESRD, additional, but it is as above. Coding Level of Care Code Critical Care >/= 30 minutes Critical care time (in minutes): 35 The high probability of a clinically significant, sudden or life threatening deterioration, as referenced in this documentation, required my full and direct attention, intervention and personal management. The critical care time shown is in addition to time spent performing any reported separately billable procedures and includes the following: [x] Data and vital sign review and interpretation [x ] Patient assessment, examination and intervention [x] Medication orders and management [x] Patient/Family updates as able [x] Care Coordination and Documentation. Diagnoses Septic shock A41.9; R65.21 Respiratory failure J96.90 Pneumonia J18.9 MRSA pneumonia J15.212 Klebsiella pneumonia J15.0 Congestive heart failure I50.9 CKD (chronic kidney disease), stage V N18.5 Diabetes E11.9 Afib I48.91 Hypoxia R09.02 Decubitus ulcer L89.90 Acute metabolic encephalopathy G93.41 Goals of care, counseling/discussion Z71.89
[2023-09-24 22:00] LABS: Glucose Point of Care 302 mg/dL (70-110)
[2023-09-24] MEDS: tamsulosin 0.4 mg Capsule 0.8 MG PO (22:10)
[2023-09-24] MEDS: aspirin 81 mg EC Tablet PO (22:10)
[2023-09-24] MEDS: vancomycin 125 mg Capsule PO (22:37)
[2023-09-24 22:47] LABS: Vancomycin Trough 42.1 ug/mL (10-15)
[2023-09-25] VITALS (54 sets, daily range): BP systolic 95–139; BP diastolic 38–90; PULSE 73–112; RESP 13–25; TEMP 36.8–37.1; O2SAT 90–97
[2023-09-25] MEDS: methylPREDNISolone sod succ 40 mg/mL INJ 20 MG IVP ×3 (00:22→15:58)
[2023-09-25] MEDS: heparin 5,000 unit/mL INJ 1 mL 5000 UNIT SUBCUT ×2 (00:24→12:34)
[2023-09-25] MEDS: insulin lispro 100 unit/1 mL SUBCUT ×4 (01:16→20:02)
[2023-09-25 03:15] LABS: Glucose Point of Care 247 mg/dL (70-110)
[2023-09-25 04:24] LABS: Basophils % 0.1 %; Eosinophils % 0.1 %; Hematocrit 26.9 % (37-53); Lymphocytes # 0.4 10^3/uL (0.8-4.8); Mean Corpuscular HGB Conc 29.7 g/dL (30-55); Mean Corpuscular Hemoglobin 28.2 pg (27-33); Mean Corpuscular Volume 94.7 fl (82-101); Mean Platelet Volume 8.7 fL (7.4-10.4); Monocytes # 0.7 10^3/uL (0.2-0.9); Monocytes % 4.7 %; Neutrophils # 12.63 10^3/uL (1.8-7.7); Neutrophils % 91.5 %; Nucleated Red Blood Cells % 0 %; Platelet Count 437 10^3/cmm (157-399); Red Blood Count 2.84 10^6/uL (3.85-5.65); Red Cell Distribution Width 20.6 % (12.1-15.1); White Blood Count 13.79 10^3/uL (3.29-11.43)
[2023-09-25 04:42] LABS: Anion Gap 16.3 (5-19); Blood Urea Nitrogen 25 mg/dL (6-20); Calcium 8.6 mg/dL (8.5-10.5); Carbon Dioxide 24 mmol/L (22-29); Chloride 96 mmol/L (98-107); Glomerular Filtration Rate 21.8 mL/min (90-130); Glucose 150 mg/dL (65-115); Magnesium 2.1 mg/dL (1.7-2.3); Osmolality Calculated 283 mOsm/kg (285-295); Phosphorus 2.8 mg/dL (2.5-4.5); Potassium 3.3 mmol/L (3.5-5.1); Sodium 133 mmol/L (136-145)
[2023-09-25] MEDS: ipratropium-albuterol 3 mL Neb INHALATION ×3 (07:50→19:49)
[2023-09-25] MEDS: budesonide 0.5 mg/2 mL Neb INHALATION ×2 (07:50→19:49)
[2023-09-25 08:27] LABS: Glucose Point of Care 166 mg/dL (70-110)
--- NOTE | 2023-09-25 09:04 | P.PN_ITS ---
Subjective 2 Subjective: s/p hd yesterday Medications: Reviewed: Yes Vitals/I&O/Wt Last Vital Signs Temp 98.2 F 09/25/23 00:00 Pulse 98 09/25/23 07:51 Resp 23 H 09/25/23 07:51 BP 107/41 09/25/23 06:45 Pulse Ox 95 09/25/23 07:51 O2 Del Method Nasal Cannula 09/25/23 07:51 O2 Flow Rate 3 09/25/23 07:51 FiO2 40 09/22/23 07:58 09/24/23 09/25/23 09/25/23 22:59 06:59 14:59 Intake Total 289 / 589 100 / 689 Output Total 75 / 3250 Balance 289 / -2586 25 / -2561 Weight last 48 hrs Weight 74.5 kg Weight 77.927 kg Physical Exam 2 Narrative: awake , alert No distress L Urinary Catheter Management: Reed: Cath Placed During This Visit: yes Reason for Continuing Indwelling Catheter: Accurate Measurement of Urinary Output in Critically Ill Patients Urinary Catheter Date of Insertion: 09/16/23 Urinary Catheter Time of Insertion: 01:58 Data 09/25/23 04:04 09/25/23 04:04 A&P Assessment and plan (1) ESRD (end stage renal disease): Plan 1. End-stage renal disease: On TTS schedule as outpatient, has pulmonary edema with hypoxia. - s/p HD yesterday 2. Anemia: order TAVON 3. Acute on chronic respiratory failure: Multifactorial secondary to pneumonia and CHF exacerbation 4. History of sacral decubitus wound with diverting colostomy 5. Diabetes type 2 6. Altered mental status Patient evaluated using audiovisual cart. Time spent 20 minutes. Attestations 2 Medical Necessity Statement*: per medicine team Coding Level of Care Code Acute Code for Chg Fwd Diagnoses ESRD (end stage renal disease) N18.6
[2023-09-25] MEDS: pantoprazole DR 40 mg Tablet PO (09:18)
[2023-09-25] MEDS: amiodarone 200 mg Tablet PO (09:18)
[2023-09-25] MEDS: midodrine 5 mg TABLET 10 MG PO ×3 (09:18→20:09)
[2023-09-25] MEDS: meropenem 500 MG in sodium chloride 0.9% (plus) 50 ML 100 MG IV ×2 (09:18→20:26)
[2023-09-25] MEDS: clopidogrel 75 mg Tablet PO (09:18)
[2023-09-25] MEDS: vancomycin 125 mg Capsule PO ×4 (09:19→20:10)
[2023-09-25] MEDS: docusate sodium 100 mg Capsule 200 MG PO (09:19)
[2023-09-25] MEDS: polyethylene glycol 3350 Pkt 17 gm PO (09:19)
[2023-09-25] MEDS: acetaminophen 500 mg Tablet PO ×2 (09:30→17:58)
--- NOTE | 2023-09-25 09:54 | PC.SOCIAL ---
IMM Update Updated pt on IMM. No questions voiced. Provided pt a copy. Initialed, dated, & timed copy in chart.
[2023-09-25 11:20] LABS: Glucose Point of Care 248 mg/dL (70-110)
[2023-09-25] MEDS: albumin 25 G/100 ML BAG 60 G IV (12:34)
[2023-09-25] MEDS: lanolin oint 7 gm 1 APPLIC TOPICAL (13:12)
[2023-09-25 14:09] LABS: Vancomycin Random 43.5 ug/mL (20.0-40.0)
[2023-09-25] MEDS: sodium hypochlorite 0.25% Btl 473 mL 1 APPLIC TOPICAL (17:46)
[2023-09-25 18:48] LABS: Glucose Point of Care 245 mg/dL (70-110)
--- NOTE | 2023-09-25 19:32 | P.PN_ITS ---
Subjective 2 Subjective: He reports he is doing well. Denies pain or discomfort. Breathing is comfortable. No chest pain or pressure. No abdominal pain or discomfort. Vitals/I&O/Wt Last Vital Signs Temp 98.2 F 09/25/23 00:00 Pulse 102 H 09/25/23 18:00 Resp 24 H 09/25/23 18:00 BP 117/60 09/25/23 18:00 Pulse Ox 92 09/25/23 18:00 O2 Del Method Nasal Cannula 09/25/23 18:00 O2 Flow Rate 3 09/25/23 18:00 FiO2 40 09/22/23 07:58 09/25/23 09/25/23 09/25/23 06:59 14:59 22:59 Intake Total 100 / 689 630 / 630 240 / 870 Output Total 75 / 3250 50 / 50 Balance 25 / -2561 630 / 630 190 / 820 Weight last 48 hrs Weight 74.5 kg Weight 77.927 kg Physical Exam 2 Const: COMMON NORMALS: alert GENERAL APPEARANCE: cooperative O RIENTATION/CONSCIOUSNESS: Yes awake HENMT: COMMON NORMALS: oropharynx normal Neck/C-Spine: COMMON NORMALS: no JVD Resp: COMMON NORMALS: normal respiratory effort and clear to auscultation bilaterally AUSCULTATION: clear to auscultation bilaterally Cardio: COMMON NORMALS: no JVD, regular rhythm, S1 normal heart sound present, S2 normal heart sound present and No murmurs present (Cardio) RHYTHM: regular rhythm HEART SOUNDS: S1 normal heart sound present and S2 normal heart sound present GI: COMMON NORMALS: Normal to inspection, nondistended, normoactive bowel sounds present, Soft to palpation and non-tender PALPATION: Yes Soft to palpation Extremity: COMMON NORMALS: no joint enlargement and no pedal edema N ARRATIVE EXTREMITY EXAM: R BKA Neuro: COMMON NORMALS: moves all extremities SENSORIUM/ORIENTATION: Yes alert Skin: OTHER: Chronic stasis changes on LLE Urinary Catheter Management: Reed: Cath Placed During This Visit: yes Reason for Continuing Indwelling Catheter: Accurate Measurement of Urinary Output in Critically Ill Patients Urinary Catheter Date of Insertion: 09/16/23 Urinary Catheter Time of Insertion: 01:58 Data 09/25/23 04:04 09/25/23 04:04 A&P Assessment and plan (1) Septic shock: Blood pressure soft this morning, MAP 60, requested additional albumin. Subsequently blood pressure improved throughout the day. Discontinue norepinephrine and vasopressin drips. Will transfer out of ICU. Continue to monitor vitals. He is already on midodrine 10 mg 3 times daily. Discussed with him risk of cardiac ischemia with midodrine. He will let us know immediately in case of any change in symptoms, chest pain or pressure. Reviewed vitals, CBC, CMP. CBC noted with improving leukocytosis. Chemistry with improvement in hyponatremia. Decreased on Solu-Medrol to 10 milligram. Reviewed blood cultures, so far negative. Reviewed sputum culture, 09/16 MRSA, Klebsiella pneumonia. Blood cultures from 09/15 negative, sputum culture appreciated. Patient has remained afebrile. Oral vancomycin started for C. difficile colitis. Discussed with case management. Reviewed C. difficile noted detected. Start oral vancomycin for C. difficile colitis. Continue isolation. At risk of hypovolemia. Hypoalbuminemia. Stool is somewhat pasty. Repeat dose of albumin. Acute encephalopathy with improvement. Trial of oral diet. Few coughs with solids. Not with liquids. Reinforced with him and family aspiration precautions. Has had PICC line placed, reviewed chest x-ray PICC line in good position after repositioning. Remove left arm midline. Reviewed CT abdomen pelvis, prior coccygeal resection, exposed right lower sacral neural arch no destructive bony process identified. Left lower anterior abdominal sigmoidostomy. Mid sigmoid colon Travis pouch. Mild abdominal colonic constipation. Prior cholecystectomy. CTA chest moderate right pleural effusion. Right lower lobe pulmonary partial atelectasis. Cavitary lesion superior lingula and left lung base possibility of cavitary lesion, septic emboli felt less likely. Rounded foci of consolidation bilateral lower lobes. Pneumonitis suspected. Follow-up to confirm clearing recommended. Focal areas of mild bronchiectasis. No PE. (2) Respiratory failure: Improving respiratory failure, aspiration pneumonia, congestive heart failure. Patient with aspiration, eating and drinking while reclined in bed due to discomfort and inability to sit upright. Risk of aspiration recurrence. Reinforced aspiration precautions with him and family. Trial of oral diet. Discussed risk of aspiration. In case of recurrent aspiration, intolerance of oral diet, family stating that case may consider PEG tube. Speech therapy follow up. Patient presents with acute hypoxic respiratory failure. High concerns for aspiration pneumonitis along with congestive heart failure. Sputum culture growing Klebsiella and MRSA. Solu-Medrol overnight decr to 10 mg q8h. CHF now appears more compensated although still moderate pleural effusion. Oxygen supplementation keeping saturation over 90%. DuoNebs every 6 hour, Pulmicort twice daily. D-dimer elevated yesterday. No PE on review of CTA. (3) Pneumonia: Continues on meropenem, vancomycin due to Klebsiella, MRSA infection. CT chest obtained yesterday morning with moderate right pleural effusion, right lower lobe pulm atelectasis, cavitary lesion superior lingula and left lung base possibly cavitary lesion. Reassessment chest x-ray reviewed, noted small pleural effusion now. Previously moderate pleural effusion, suspect secondary to CHF, however, does have pneumonia, cannot entirely exclude parapneumonic effusion. Does have leukocytosis. Afebrile. Oxygenation with overall improvement. He is on aspirin Plavix, prophylactic heparin. Attempts to redirect. Additionally discussed about consideration of thoracentesis, risks and benefits. Could not reach his daughter so far to discuss. COVID-[address] chest on admission. (4) MRSA pneumonia: (5) Klebsiella pneumonia: (6) Congestive heart failure: About 3 kg below the weight of admission, weight measurement has been fluctuating, and does not appear to be particularly reliable. Overall volume status patient improving, but does still have moderate pleural effusion. Patient with history of congestive heart failure Last echo poor quality, LV mildly reduced Appreciate nephrology intervention with dialysis (7) CKD (chronic kidney disease), stage V: Patient with end-stage renal disease, receiving hemodialysis through dialysis catheter right IJ. Appreciate nephrology consultation (8) Diabetes: Reviewed Accu-Cheks, blood glucose fluctuating. Continue to cut down steroid. Adjust to consistent carb diet. Continue long-acting insulin, reduced amount Sliding scale insulin Speech therapy consultation Aspiration precautions (9) Afib: Continue amiodarone (10) Hypoxia: (11) Decubitus ulcer: Stage III decubitus pressure ulcer on the right and left buttock Stage IV pressure ulcer on sacral (12) Acute metabolic encephalopathy: (13) Goals of care, counseling/discussion: Plan Hypoglycemia: Noted on the morning of 09/22. Will not intensify insulin regimen for now. Monitor. Is on Solu-Medrol. Full code CLD Protonix for PUD prophylaxis Heparin 5000 every 12 hourly for DVT prophylaxis. Attestations 2 Medical Necessity Statement*: Continue admission for assessment management of complicated pneumonia, hypotension, aspiration, C. difficile colitis and gentleman with ESRD, additional comorbidities as above. Diagnoses Septic shock A41.9; R65.21 Respiratory failure J96.90 Pneumonia J18.9 MRSA pneumonia J15.212 Klebsiella pneumonia J15.0 Congestive heart failure I50.9 CKD (chronic kidney disease), stage V N18.5 Diabetes E11.9 Afib I48.91 Hypoxia R09.02 Decubitus ulcer L89.90 Acute metabolic encephalopathy G93.41 Goals of care, counseling/discussion Z71.89
[2023-09-25 19:47] LABS: Glucose Point of Care 350 mg/dL (70-110)
[2023-09-25] MEDS: aspirin 81 mg EC Tablet PO (20:09)
[2023-09-25] MEDS: tamsulosin 0.4 mg Capsule 0.8 MG PO (20:10)
--- NOTE | 2023-09-25 21:25 | PC.NURSE ---
Update Family: Attempted to call pt family per pt request, to update them on pts room change. All numbers listed in chart went to voicemail or where unavailable. Pt made aware. Report called to JEFFERSON Borrero on Medical-Surgical floor @[phone].
[2023-09-26] VITALS (10 sets, daily range): BP systolic 121–138; BP diastolic 57–71; PULSE 79–104; RESP 16–20; TEMP 36.7–37; O2SAT 93–99
[2023-09-26] MEDS: methylPREDNISolone sod succ 40 mg/mL INJ 10 MG IVP ×3 (00:46→17:56)
[2023-09-26] MEDS: heparin 5,000 unit/mL INJ 1 mL 5000 UNIT SUBCUT ×2 (00:46→12:42)
[2023-09-26 01:26] LABS: Glucose Point of Care 386 mg/dL (70-110)
[2023-09-26] MEDS: insulin lispro 100 unit/1 mL SUBCUT ×4 (02:09→17:57)
--- NOTE | 2023-09-26 02:18 | PC.NURSE ---
Left mid line was removed at this time per Dr. Santos orders. The line was removed without incident. Tip of the line was completely intact. 17cm of total length was removed and confirmed to be the original insertion length upon review of prior documentation. Pressure dressing applied.
[2023-09-26 05:49] LABS: Basophils % 0.1 %; Hematocrit 26.2 % (37-53); Lymphocytes # 0.5 10^3/uL (0.8-4.8); Lymphocytes % 3.9 %; Mean Corpuscular HGB Conc 29.8 g/dL (30-55); Mean Corpuscular Hemoglobin 28.5 pg (27-33); Mean Corpuscular Volume 95.6 fl (82-101); Monocytes # 0.8 10^3/uL (0.2-0.9); Monocytes % 6.2 %; Neutrophils # 11.57 10^3/uL (1.8-7.7); Neutrophils % 89.1 %; Nucleated Red Blood Cells % 0 %; Platelet Count 408 10^3/cmm (157-399); Red Blood Count 2.74 10^6/uL (3.85-5.65); Red Cell Distribution Width 21.4 % (12.1-15.1); White Blood Count 12.98 10^3/uL (3.29-11.43)
[2023-09-26 06:12] LABS: Blood Urea Nitrogen 45 mg/dL (6-20); Carbon Dioxide 24 mmol/L (22-29); Chloride 96 mmol/L (98-107); Glomerular Filtration Rate 15.2 mL/min (90-130); Glucose 368 mg/dL (65-115); Osmolality Calculated 305 mOsm/kg (285-295); Sodium 134 mmol/L (136-145)
[2023-09-26 06:38] LABS: Glucose Point of Care 384 mg/dL (70-110)
[2023-09-26] MEDS: docusate sodium 100 mg Capsule 200 MG PO (08:33)
[2023-09-26] MEDS: midodrine 5 mg TABLET 10 MG PO ×3 (08:33→20:04)
[2023-09-26] MEDS: polyethylene glycol 3350 Pkt 17 gm PO (08:34)
[2023-09-26] MEDS: clopidogrel 75 mg Tablet PO (08:34)
[2023-09-26] MEDS: meropenem 500 MG in sodium chloride 0.9% (plus) 50 ML 100 MG IV ×2 (08:34→23:01)
[2023-09-26] MEDS: vancomycin 125 mg Capsule PO ×4 (08:34→20:04)
[2023-09-26] MEDS: amiodarone 200 mg Tablet PO (08:34)
[2023-09-26] MEDS: pantoprazole DR 40 mg Tablet PO (08:34)
[2023-09-26] MEDS: sodium hypochlorite 0.25% Btl 473 mL 1 APPLIC TOPICAL (09:41)
--- NOTE | 2023-09-26 10:02 | P.PN_ITS ---
Subjective 2 Subjective: fels better Medications: Reviewed: Yes Vitals/I&O/Wt Last Vital Signs Temp 98.6 F 09/26/23 07:54 Pulse 85 09/26/23 07:54 Resp 18 09/26/23 07:54 BP 137/71 09/26/23 07:54 Pulse Ox 97 09/26/23 07:54 O2 Del Method Nasal Cannula 09/26/23 09:23 O2 Flow Rate 3 09/26/23 09:23 FiO2 40 09/22/23 07:58 09/25/23 09/26/23 09/26/23 22:59 06:59 14:59 Intake Total 290 / 920 920 / 920 Output Total 50 / 50 300 / 350 Balance 240 / 870 -300 / 570 920 / 920 Weight last 48 hrs Weight 74.021 kg Weight 74.5 kg Physical Exam 2 Narrative: awake , alert No distress L Urinary Catheter Management: Reed: Cath Placed During This Visit: yes Reason for Continuing Indwelling Catheter: Other Urinary Catheter Date of Insertion: 09/16/23 Urinary Catheter Time of Insertion: 01:58 Data 09/26/23 05:40 09/26/23 05:40 A&P Assessment and plan (1) ESRD (end stage renal disease): Plan 1. End-stage renal disease: On TTS schedule as outpatient, has pulmonary edema with hypoxia. - plan for HD TODAY 2. Anemia: order TAVON 3. Acute on chronic respiratory failure: Multifactorial secondary to pneumonia and CHF exacerbation 4. History of sacral decubitus wound with diverting colostomy 5. Diabetes type 2 6. Altered mental status Patient evaluated using audiovisual cart. Time spent 20 minutes. Attestations 2 Medical Necessity Statement*: per medicine team Coding Level of Care Code Acute Code for Chg Fwd Diagnoses ESRD (end stage renal disease) N18.6
--- NOTE | 2023-09-26 11:28 | P.DS_ITS ---
Discharge Providers Date of Admission: 09/16/23 00:51 Date of Discharge: September 26, 2023 Attending Provider at Admission: Mitzi Gonsalez MD Attending Provider at Discharge: Vazquez Ulloa Primary Care Provider: César Gallegos DO Diagnoses at Discharge Discharge Diagnosis (1) ESRD (end stage renal disease): Status: Acute Reason for Visit Reason for Visit: SOB Hospital Course Hospital Course Pleasant 58-year-old gentleman with history of ESRD on hemodialysis, was admitted after presenting with shortness of breath with finding of aspiration pneumonia with possible hospital-acquired pneumonia, started on broad-spectrum antibiotic coverage, with known sacral ulcerations, left foot wounds, following with wound care, it appears as a difficulty sitting upright to eat and drink due to pain, increasing risk of aspiration, and presentation also with hyperglycemia with diabetes CHF exacerbation. Transposition seen by nephrology, underwent hemodialysis. On presentation also with elevation of troponin but in the setting of ESRD, acute pneumonia, CHF, was thought to be secondary to demand ischemia, troponin in the 400s but with flat trend, without chest pain. She normally follows with cardiology with known underlying CAD, as well as aortic stenosis. On presentation also with acute encephalopathy, suspected combination secondary to infection, metabolic encephalopathy secondary to CHF consideration, with renal failure. This improved with treatment, as did his oxygenation. Continued on broad-spectrum antibiotics. Sputum cultures eventually growing MRSA as well as Klebsiella resistant to ampicillin. He did have some persistence of hypotension initially secondary to suspected septic shock, subsequently with gradual improvement, wean down on pressors, was started on midodrine, with noted hypoalbuminemia, received albumin, weaned off pressors. Continue to monitor blood pressures. Partially also secondary to C. difficile colitis, Was started on oral vancomycin. Overall condition improved, feeling much better, was assessed by speech therapy, continues on aspiration precautions, with recommendation for level 4 dysphagia diet, extremely thick, pur?ed, nectar thick liquids. Needs continued follow-up with wound care for pressure ulcers as well as follow- up with wound care, cardiology regarding wounds, dry gangrene on the distal left foot toes as well as for CHF, underlying CAD. Physical Exam Const: COMMON NORMALS: alert GENERAL APPEARANCE: cooperative ORIENTATION/CONSCIOUSNESS: Yes awake HENMT: COMMON NORMALS: oropharynx normal Neck/C-Spine: COMMON NORMALS: no JVD Resp: COMMON NORMALS: normal respiratory effort and clear to auscultation bilaterally AUSCULTATION: clear to auscultation bilaterally Cardio: COMMON NORMALS: no JVD, regular rhythm, S1 normal heart sound present, S2 normal heart sound present and No murmurs present (Cardio) RHYTHM: regular rhythm HEART SOUNDS: S1 normal heart sound present and S2 normal heart sound present GI: COMMON NORMALS: Normal to inspection, nondistended, normoactive bowel sounds present, Soft to palpation and non-tender PALPATION: Yes Soft to palpation Extremity: COMMON NORMALS: no joint enlargement and no pedal edema NARRATIVE EXTREMITY EXAM: R BKA Neuro: COMMON NORMALS: moves all extremities SENSORIUM/ORIENTATION: Yes al ert Skin: OTHER: Chronic stasis changes on LLE Prior partial digit and positional left foot, chronic dry gangrene several digit tips without signs of surrounding infection or drainage. warm proximal extremity. Urinary Catheter Management: Reed: Cath Placed During This Visit: yes Reason for Continuing Indwelling Catheter: Other Urinary Catheter Date of Insertion: 09/16/23 Urinary Catheter Time of Insertion: 01:58 Discharge Data Studies Completed and Pending Completed Studies During Hospitalization Category Date Time Status CT abdomen pelvis wo con [id number] Routine Cat Scan 09/22/23 07:[address] chest wo con [id number] Routine Cat Scan 09/16/23 11:[address] head wo con* [id number] Routine Cat Scan 09/20/23 16:[address] lumbar spine w con [id number] Routine Cat Scan 09/17/23 12:[address] pelvis wo con [id number] Routine Cat Scan 09/18/23 15:32 Completed CTA chest [CT angio chest PE protcl [id number]] Stat Cat Scan 09/22/23 07:55 Completed CXRP [XR chest 1V portable [id number]] Routine Exams 09/23/23 08:11 Completed XR chest 1V portable [id number] Routine Exams 09/20/23 09:04 Completed XR chest 1V portable [id number] Stat Exams 09/15/23 22:01 Completed XR chest 1V portable [id number] Stat Exams 09/22/23 23:16 Completed Pending at discharge Category Date Time Status Blood Culture Stat Lab 09/22/23 18:21 Results SARS Covid-2 Antigen Routine Lab 09/26/23 11:04 Received Radiology Impressions Head CT 09/20/23 16:27 IMPRESSION: No acute intracranial abnormality. Multifocal remote infarcts, chronic white matter and senescent changes. Abdomen/Pelvis CT 09/22/23 07:55 IMPRESSION: 1. Prior coccygeal resection. 2. Exposed right lower sacral neural arch. 3. No destructive bony process identified. 4. Left lower anterior abdominal sigmoidostomy. 5. Mid sigmoid colonic Travis pouch. 6. Mild abdominal colonic constipation. 7. Prior cholecystectomy. 8. Please see the CTA chest report of the same date for additional findings. Chest CTA 09/22/23 07:55 IMPRESSION: 1. Decreased moderate right pleural effusion, partially loculated. 2. Right lower lobe pulmonary partial atelectasis. 3. Cavitary lesions inferior lingula and left lung base. This may represent cavitary infection, septic emboli felt less likely due to unilateral involvement. Clinical correlation is recommended. 4. Rounded foci of consolidation bilateral lower lobes. Pneumonitis is suspected. Clinical correlation is recommended. Follow-up to confirm clearing is recommended. 5. Focal areas of mild bronchiectasis left lower lobe medial basilar segment, inferior lingula. 6. No pulmonary artery embolism identified. Impression. 7. Coronary atherosclerosis. 8. Please see the abdomen/pelvis CT report of the same date for additional findings. Laboratory Results WBC 12.98 10^3/uL (3.29-11.43) H 09/26/23 05:40 RBC 2.74 10^6/uL (3.85-5.65) L 09/26/23 05:40 Hgb 7.80 g/dL (11.27-16.99) L 09/26/23 05:40 Hct 26.2 % (37-53) L 09/26/23 05:40 MCV 95.6 fl (82-101) 09/26/23 05:40 MCH 28.5 pg (27-33) 09/26/23 05:40 MCHC 29.8 g/dL (30-55) L 09/26/23 05:40 RDW 21.4 % (12.1-15.1) H 09/26/23 05:40 Plt Count 408 10^3/cmm (157-399) H 09/26/23 05:40 MPV 9.0 fL (7.4-10.4) 09/26/23 05:40 Neut % (Auto) 89.1 % 09/26/23 05:40 Lymph % (Auto) 3.9 % 09/26/23 05:40 [place] % (Auto) 6.2 % 09/26/23 05:40 Eos % (Auto) 0.0 % 09/26/23 05:40 Baso % (Auto) 0.1 % 09/26/23 05:40 Neut # (Auto) 11.57 10^3/uL (1.8-7.7) H 09/26/23 05:40 Lymph # (Auto) 0.5 10^3/uL (0.8-4.8) L 09/26/23 05:40 [place] # (Auto) 0.8 10^3/uL (0.2-0.9) 09/26/23 05:40 Eos # (Auto) 0.0 10^3/uL (0.0-0.8) 09/26/23 05:40 Baso # (Auto) 0.0 10^3/uL (0.0-0.1) 09/26/23 05:40 Nucleated RBC % (auto) 0 % 09/26/23 05:40 Nucleated RBCs # 0.0 /100WBC 09/26/23 05:40 APTT 45.8 SECONDS (23.9-36.7) H 09/15/23 22:13 D-Dimer 11.39 ug/mLFEU (0-0.59) H 09/21/23 18:25 Specimen Type Arterial 09/22/23 05:19 Sample Site Radial, left 09/22/23 05:19 ABG pH 7.34 (7.35-7.45) L 09/22/23 05:19 ABG pCO2 35.4 mmHg (35-45) 09/22/23 05:19 ABG pO2 119.0 mmHg (80.0-100.0) H 09/22/23 05:19 ABG PO2/FiO2 Ratio 0 09/22/23 05:19 ABG HCO3 19.0 mmol/L (22-26) L 09/22/23 05:19 ABG O2 Saturation 99.4 09/22/23 05:19 ABG Base Excess -6.2 mmol/L (-2.0-2.0) L 09/22/23 05:19 Prashant Test Pos 09/22/23 05:19 A-a O2 Gradient 19.9 mmHg (5-10) H 09/22/23 05:19 Hematocrit 25.9 % (42-52) L 09/22/23 05:19 Hgb O2 Saturation 97.1 % (95-100) 09/22/23 05:19 Carboxyhemoglobin 1.5 %THgb (0.4-20.1) 09/22/23 05:19 Methemoglobin 0.9 % (0.4-1.5) 09/22/23 05:19 Total Hemoglobin 8.4 g/dL (14-18) L 09/22/23 05:19 Sodium 138.0 mmol/L (131-143) 09/22/23 05:19 Potassium 3.4 mmol/L (3.5-5.0) L 09/22/23 05:19 Glucose 181.0 mg/dL (70-115) H 09/22/23 05:19 Ionized Calcium 1.2 mmol/L (1.1-1.4) 09/22/23 05:19 O2 Delivery Device Bipap 09/22/23 05:19 O2 Liters/Min 6.0 % 09/16/23 01:40 FiO2 45.0 % 09/22/23 05:19 Cloth Finishing Range Operator Chief ID [email or web address] 09/22/23 05:19 Sodium 134 mmol/L (136-145) L 09/26/23 05:40 Potassium 4.0 mmol/L (3.5-5.1) 09/26/23 05:40 Chloride 96 mmol/L (98-107) L 09/26/23 05:40 Carbon Dioxide 24 mmol/L (22-29) 09/26/23 05:40 Anion Gap 18.0 (5-19) 09/26/23 05:40 BUN 45 mg/dL (6-20) H 09/26/23 05:40 Creatinine 4.1 mg/dL (0.7-1.2) H 09/26/23 05:40 GFR Calculation 15.2 mL/min (90-130) L 09/26/23 05:40 Glucose 368 mg/dL (65-115) H 09/26/23 05:40 POC Glucose 384 mg/dL (70-110) H 09/26/23 06:28 Estimat Average Glucose 117 09/22/23 01:15 Hemoglobin A1c 5.7 % (4.0-6.0) 09/22/23 01:15 Calculated Osmolality 305 mOsm/kg (285-295) H 09/26/23 05:40 Calcium 9.0 mg/dL (8.5-10.5) 09/26/23 05:40 Phosphorus 2.8 mg/dL (2.5-4.5) 09/25/23 04:04 Magnesium 2.1 mg/dL (1.7-2.3) 09/25/23 04:04 Iron 47 ug/dL (59-158) L 09/21/23 03:12 TIBC 74 mcg/dl 09/21/23 03:12 % Saturation 63.5 % (20-50) H 09/21/23 03:12 Unsat Iron Binding 27 ug/dL (112-347) L 09/21/23 03:12 Total Bilirubin 0.3 mg/dL (0.15-1.2) 09/23/23 04:01 AST 14 U/L (0-40) 09/23/23 04:01 ALT 11 U/L (0-41) 09/23/23 04:01 Alkaline Phosphatase 85 U/L (40-130) 09/23/23 04:01 Ammonia 51 umol/L (16-60) 09/20/23 03:12 Troponin T Baseline 426 ng/L (0-15) H* 09/15/23 22:13 Troponin T 120 Minute 444.0 ng/L (0-15) H 09/16/23 00:14 Delta Troponin T 18.0 ABS# (0-10) H* 09/16/23 00:14 Troponin T Hi Sens 6Hr 454.6 ng/L (0-15) H 09/16/23 04:20 Troponin T Hi Sens 6Hr Delta 28.6 ng/L (0-12) H* 09/16/23 04:20 C-Reactive Protein 93.0 mg/L (0.0-4.9) H 09/16/23 04:20 NT-Pro-B Natriuret Pep > 86746 pg/mL (0-125) H 09/15/23 22:13 Total Protein 6.0 g/dL (6.6-8.7) L 09/23/23 04:01 Albumin 3.2 g/dL (3.5-5.2) L 09/23/23 04:01 Globulin 2.8 g/dL (1.3-4.6) 09/23/23 04:01 Triglycerides 93 mg/dL (0-150) 09/22/23 01:15 Cholesterol 88 mg/dL (0-200) 09/22/23 01:15 LDL Cholesterol, Calc 28 mg/dL (50-129) L 09/22/23 01:15 Total VLDL Cholesterol 19 mg/dL (0-30) 09/22/23 01:15 HDL Cholesterol 41 mg/dL (60-100) L 09/22/23 01:15 Cholesterol/HDL Ratio 2.15 mg/dL (1.0-5.00) 09/22/23 01:15 Vitamin B12 276 pg/mL (232-1245) 09/21/23 03:12 Folate > 20.0 ng/mL (4.5-32.2) 09/22/23 01:15 Procalcitonin 0.58 ng/mL (0-0.5) H 09/21/23 03:12 TSH 1.78 uIU/mL (0.27-4.20) 09/21/23 03:12 Vancomycin Trough 42.1 ug/mL (10-15) H* 09/24/23 21:37 Random Vancomycin 43.5 ug/mL (20.0-40.0) H* 09/25/23 13:23 C. difficile Tox (PCR) Detected (NOT DETECTED) A 09/22/23 13:00 Coronavirus 229E (PCR) Not detected (NOT DETECT) 09/16/23 09:36 Hep Bs Antigen Non-reactive (Nonreactive) 09/15/23 22:13 Hep Bs Antibody 107.4 (11.5-1000) 09/15/23 22:13 Hep B Core Total Ab Non-reactive (Nonreactive) 09/15/23 22:13 Influenza Type A Ag negative (Negative) 09/16/23 09:36 Influenza Type B Ag negative (Negative) 09/16/23 09:36 SARS-CoV-2 (PCR) Not detected (NOT DETECT) 09/16/23 09:36 MRSA (PCR) Cancelled 09/16/23 19:52 Blood Type O Positive 09/17/23 11:57 Rho(D) Type Rh positive 09/17/23 11:57 Antibody Screen Negative 09/17/23 11:57 Crossmatch See Detail 09/17/23 11:57 Vitals Last Vital Signs Temp 98.6 F 09/26/23 11:16 Pulse 82 09/26/23 11:16 Resp 20 H 09/26/23 11:16 BP 126/63 09/26/23 11:16 Pulse Ox 96 09/26/23 11:16 O2 Del Method Nasal Cannula 09/26/23 11:16 O2 Flow Rate 3 09/26/23 09:23 FiO2 40 09/22/23 07:58 Discharge Plan Discharge Patient Disposition: Xfer SNF Condition: Stable Prescriptions: New vancomycin 125 mg Capsule 125 mg PO QID 8 Days Qty: 32 0RF cefdinir 300 mg capsule 300 mg PO BID 4 Days Qty: 8 0RF linezolid 600 mg tablet 600 mg PO BID 5 Days Qty: 10 0RF Rx Instructions: After dialysis on dialysis days Continued atorvastatin 80 mg tablet 80 mg PO BEDTIME Lantus Solostar U-100 Insulin 100 unit/mL (3 mL) insulin pen 14 unit SUBCUT BEDTIME aspirin 81 mg Tablet,Delayed Release (Dr/Ec) 81 mg PO BEDTIME albuterol sulfate 90 mcg/actuation HFA aerosol inhaler 2 puff INHALATION Q6H PRN (Reason: Shortness Of Breath) insulin lispro 100 unit/mL insulin pen See Rx Instructions .ROUTE .COMPLEX Rx Instructions: INJECT SUBCUTANEOUSLY PER SLIDING SCALE THREE TIMES DAILY BEFORE MEALS DIRECTED - MAX DAILY DOSE OF 40 UNITS Incruse Ellipta 62.5 mcg/actuation blister with device 1 inh INHALATION DAILY ipratropium-albuterol 0.5 mg-3 mg(2.5 mg base)/3 mL solution for nebulization 3 ml INHALATION Q6H PRN (Reason: Shortness Of Breath) insulin glargine 100 unit/mL Solution 10 unit SUBCUT QAM amiodarone 200 mg Tablet 200 mg PO DAILY clopidogrel 75 mg tablet 75 mg PO DAILY tamsulosin 0.4 mg capsule 0.8 mg PO BEDTIME pantoprazole 40 mg Tablet,Delayed Release (Dr/Ec) 40 mg PO DAILY docusate sodium 100 mg Capsule 200 mg PO DAILY calcium carbonate 500 mg calcium (1,250 mg) Tablet,Chewable 500 mg PO BID PRN (Reason: Heartburn) Santyl 250 unit/gram Ointment 1 applic TOPICAL DAILY PRN (Reason: Wound Care) polyethylene glycol 3350 17 gram/dose Powder 4 g PO BID ondansetron 4 mg tablet,disintegrating 4 mg PO Q6H PRN (Reason: Nausea) calcium acetate(phosphat bind) 667 mg capsule 667 mg PO TID oxycodone 10 mg tablet 10 mg PO Q8H PRN (Reason: Pain) ioexvsqz-tzj-voefz-vit K-lycop 400-20-300 mcg Tablet 1 tab PO DAILY Eliquis 2.5 mg tablet 2.5 mg PO DAILY MediHoney (honey) 80 % gel 1 applic TOPICAL DAILY dimethicone 1.3 % Cream 1 applic TOPICAL BID melatonin 3 mg Capsule 3 mg PO DAILY acetaminophen 325 mg Tablet 650 mg PO QID PRN (Reason: Pain) bisacodyl [Dulcolax (bisacodyl)] 10 mg Suppository [address] DAILY PRN (Reason: Constipation) bisacodyl [Dulcolax (bisacodyl)] 5 mg Tablet,Delayed Release (Dr/Ec) 5 mg PO DAILY PRN (Reason: Constipation) Discontinued metoprolol succinate 25 mg Tablet Extended Release 24 Hr 25 mg PO DAILY Discharge Orders: Discharge Order (Routine); Ordered 09/26/23 Ordered By: Vazquez Ulloa Referrals: Nader Fu M.D [Physician] - 10/04/23 9:00 am (CHF, troponin elevation, LLE dry gangrene distal toes ) César Gallegos DO [Primary Care Provider] - 4-7 days Discharge Diet: As Directed Patient Instructions: Vancomycin (By mouth), Cefdinir (By mouth) (Omnicef), Linezolid (By mouth) (Zyvox), Heart Failure (DC), Pneumonitis (DC), Dialysis Diet (DC), Diabetic Foot Ulcers (DC), Hemodialysis (DC), CHF Stoplight, Opioid Safety Activity Restrictions/Additional Instructions: Continue to monitor blood pressures regularly, avoid hypotension. Continue oxygen by nasal cannula 3 L, wean down as tolerating. Complete antibiotic course for aspiration pneumonia, avoid aspiration, maintain aspiration precautions. Food and drink only while upright. Small sips and bites, finished before moving on. Continue dysphagia level 4 diet, pur?ed, nectar thick liquids. Consistent carbohydrate. Please reassess volume status after congestive heart failure. Continue hemodialysis for ESRD. Follow-up with cardiology for CHF as well as dry gangrene of distal left lower extremity toes. Continue follow-up with wound care for decubitus ulcers as well as his toes. Complete vancomycin course for C. difficile colitis. Had an episode of hypoglycemia while in the hospital. Monitor blood glucose. Discharge Attestations Time Spent in Discharge Care*: greater than 30 min Quality Metrics Clinical Quality Measures [ No reported AMI, CVA or VTE this stay] Coding Level of Care Code 90367 Total time (in minutes) for Discharge: 50 Diagnoses ESRD (end stage renal disease) N18.6
[2023-09-26 11:29] LABS: Glucose Point of Care 222 mg/dL (70-110)
[2023-09-26 11:39] LABS: SARS Covid-2 Antigen negative (Negative)
[2023-09-26] MEDS: ipratropium-albuterol 3 mL Neb INHALATION (13:29)
[2023-09-26 14:34] LABS: Glucose Point of Care 179 mg/dL (70-110)
--- NOTE | 2023-09-26 16:20 | PC.NURSE ---
Adair Bruno nurse said he removed midline during his shift. This nurse made inactive on chart.
[2023-09-26 16:44] LABS: Glucose Point of Care 191 mg/dL (70-110)
[2023-09-26] MEDS: heparin, porcine 1,000 unit/mL INJ 10 mL 1000 UNIT IV (18:44)
[2023-09-26] MEDS: epoetin alfa 1000 Unit/0.05 mL (ESRD) 20000 UNIT IVP (19:44)
[2023-09-26] MEDS: aspirin 81 mg EC Tablet PO (20:04)
[2023-09-26] MEDS: tamsulosin 0.4 mg Capsule 0.8 MG PO (20:04)
[2023-09-26 21:29] LABS: Glucose Point of Care 98 mg/dL (70-110)
[2023-09-26] MEDS: acetaminophen 500 mg Tablet PO (21:33)
[2023-09-26] MEDS: heparin, porcine 1,000 unit/mL INJ 10 mL 10000 UNIT INTRACATH (22:44)
[2023-09-27] MEDS: heparin 5,000 unit/mL INJ 1 mL 5000 UNIT SUBCUT (00:34)
[2023-09-27] MEDS: methylPREDNISolone sod succ 40 mg/mL INJ 10 MG IVP ×2 (00:34→08:21)
[2023-09-27] MEDS: sodium hypochlorite 0.25% Btl 473 mL 1 APPLIC TOPICAL ×3 (01:27→08:23)
[2023-09-27 01:42] VITALS: PULSE 57; RESP 15; O2SAT 92
[2023-09-27] MEDS: ipratropium-albuterol 3 mL Neb INHALATION ×2 (01:42→08:07)
--- NOTE | 2023-09-27 02:26 | PC.NURSE ---
This nurse removed heparin from the Pyxis and gave it to Sharif Richter RN upon her request to be used for dialysis.
[2023-09-27 04:13] VITALS: BP 123/65; PULSE 89; RESP 16; TEMP 36.9; O2SAT 97
[2023-09-27 06:56] LABS: Glucose Point of Care 447 mg/dL (70-110)
[2023-09-27 07:19] VITALS: BP 102/52; PULSE 93; RESP 16; O2SAT 99
--- NOTE | 2023-09-27 07:54 | PC.SOCIAL ---
IMM Update pg 2 of IMM updated and reviewed w/ patient. Copy provided and copy in chart dated, and initialed.
[2023-09-27] MEDS: budesonide 0.5 mg/2 mL Neb INHALATION (08:07)
[2023-09-27 08:08] VITALS: PULSE 83; RESP 16; O2SAT 99
[2023-09-27 08:17] VITALS: PULSE 81
[2023-09-27] MEDS: vancomycin 125 mg Capsule PO (08:21)
[2023-09-27] MEDS: midodrine 5 mg TABLET 10 MG PO (08:21)
[2023-09-27] MEDS: clopidogrel 75 mg Tablet PO (08:21)
[2023-09-27] MEDS: amiodarone 200 mg Tablet PO (08:22)
[2023-09-27] MEDS: docusate sodium 100 mg Capsule 200 MG PO (08:22)
[2023-09-27] MEDS: pantoprazole DR 40 mg Tablet PO (08:22)
[2023-09-27] MEDS: polyethylene glycol 3350 Pkt 17 gm PO (08:22)
[2023-09-27] MEDS: insulin lispro 100 unit/1 mL SUBCUT (08:23)
[2023-09-27] MEDS: acetaminophen 500 mg Tablet PO (09:38)
--- NOTE | 2023-09-27 11:34 | P.PN_ITS ---
Subjective 2 Subjective: on 2L nc Medications: Reviewed: Yes Vitals/I&O/Wt Last Vital Signs Temp 98.5 F 09/27/23 04:13 Pulse 81 09/27/23 08:17 Resp 16 09/27/23 08:08 BP 102/52 09/27/23 07:19 Pulse Ox 99 09/27/23 08:08 O2 Del Method Nasal Cannula 09/27/23 08:08 O2 Flow Rate 2 09/27/23 08:08 FiO2 40 09/22/23 07:58 09/26/23 09/27/23 09/27/23 22:59 06:59 14:59 Intake Total 360 / 1400 550 / 1950 480 / 480 Output Total 3606 / 3606 Balance 360 / 1400 -3056 / -1656 480 / 480 Weight last 48 hrs Weight 71.809 kg Weight 71.7 kg Weight 74.021 kg Physical Exam 2 Narrative: awake , alert No distress L Urinary Catheter Management: Reed: Cath Placed During This Visit: yes, but has since been removed by the nurse Reason for Continuing Indwelling Catheter: Decision to DC Catheter Urinary Catheter Date of Insertion: 09/16/23 Urinary Catheter Time of Insertion: 01:58 Date Urinary Catheter Removed: 09/26/23 Time Urinary Catheter Discontinued: 14:05 Data 09/26/23 05:40 09/26/23 05:40 A&P Assessment and plan (1) ESRD (end stage renal disease): Plan 1. End-stage renal disease: On TTS schedule as outpatient, has pulmonary edema with hypoxia- improved 2. Anemia: order TAVON 3. Acute on chronic respiratory failure: Multifactorial secondary to pneumonia and CHF exacerbation 4. History of sacral decubitus wound with diverting colostomy 5. Diabetes type 2 6. Altered mental status Patient evaluated using audiovisual cart. Time spent 20 minutes. Attestations 2 Medical Necessity Statement*: per medicine team Coding Level of Care Code Acute Code for Chg Fwd Diagnoses ESRD (end stage renal disease) N18.6
[2023-09-27 12:30] VITALS: BP 102/52; PULSE 81; RESP 16; TEMP 36.9; O2SAT 99
--- NOTE | 2023-09-27 20:30 | PM.PN ---
Subjective Subjective: Not discharged yesterday as could no longer live after hemodialysis, awaiting discharge for this morning. This morning he states he is doing well other than his colostomy ruptured his clothes got soiled. Otherwise denies any new symptoms. Vitals/I&O/Wt Last Vital Signs Temp 98.5 F 09/27/23 12:30 Pulse 81 09/27/23 12:30 Resp 16 09/27/23 12:30 BP 102/52 09/27/23 12:30 Pulse Ox 99 09/27/23 12:30 O2 Del Method Nasal Cannula 09/27/23 08:08 O2 Flow Rate 2 09/27/23 08:08 FiO2 40 09/22/23 07:58 09/27/23 09/27/23 09/27/23 06:59 14:59 22:59 Intake Total 550 / 1950 480 / 480 Output Total 3606 / 3606 Balance -3056 / -1656 480 / 480 Weight last 48 hrs Weight 71.809 kg Weight 71.7 kg Weight 74.021 kg Physical Exam Const: COMMON NORMALS: alert GENERAL APPEARANCE: cooperative ORIENTATION/CONSCIOUSNESS: Yes awake HENMT: COMMON NORMALS: oropharynx normal Neck/C-Spine: COMMON NORMALS: no JVD Resp: COMMON NORMALS: normal respiratory effort and clear to auscultation bilaterally AUSCULTATION: clear to auscultation bilaterally Cardio: COMMON NORMALS: no JVD, regular rhythm, S1 normal heart sound present, S2 normal heart sound present and No murmurs present (Cardio) RHYTHM: regular rhythm HEART SOUNDS: S1 normal heart sound present and S2 normal heart sound present GI: COMMON NORMALS: Normal to inspection, nondistended, normoactive bowel sounds present, Soft to palpation and non-tender PALPATION: Yes Soft to palpation Extremity: COMMON NORMALS: no joint enlargement and no pedal edema NARRATIVE EXTREMITY EXAM: R BKA Neuro: COMMON NORMALS: moves all extremities SENSORIUM/ORIENTATION: Yes alert Skin: OTHER: Chronic stasis changes on LLE Prior partial digit and positional left foot, chronic dry gangrene several digit tips without signs of surrounding infection or drainage. warm proximal extremity. Urinary Catheter Management: Reed: Cath Placed During This Visit: yes, but has since been removed by the nurse Reason for Continuing Indwelling Catheter: Decision to DC Catheter Urinary Catheter Date of Insertion: 11/27/23 Urinary Catheter Time of Insertion: 01:58 Date Urinary Catheter Removed: 09/26/23 Time Urinary Catheter Discontinued: 14:05 Data 09/26/23 05:40 09/26/23 05:40 Micro: Microbiology 09/22/23 18:21 Blood Culture - Final Blood NO GROWTH AFTER 5 DAYS 09/22/23 17:38 Blood Culture - Final Blood NO GROWTH AFTER 5 DAYS A&P Assessment and plan (1) Pneumonia: Stop Solu-Medrol, complete antibiotic course with cefdinir, linezolid. Did not discharge last night as could not leave after dialysis. Discharging today instead. Discussed with nurse outreach case manager Continues on meropenem, vancomycin due to Klebsiella, MRSA infection. CT chest obtained yesterday morning with moderate right pleural effusion, right lower lobe pulm atelectasis, cavitary lesion superior lingula and left lung base possibly cavitary lesion. Reassessment chest x-ray reviewed, noted small pleural effusion now. Previously moderate pleural effusion, suspect secondary to CHF, however, does have pneumonia, cannot entirely exclude parapneumonic effusion. Does have leukocytosis. Afebrile. Oxygenation with overall improvement. He is on aspirin Plavix, prophylactic heparin. Attempts to redirect. Additionally discussed about consideration of thoracentesis, risks and benefits. Could not reach his daughter so far to discuss. COVID-[address] chest on admission. (2) Septic shock: Resolved. Blood pressure soft this morning, MAP 60, requested additional albumin. Subsequently blood pressure improved throughout the day. Discontinue norepinephrine and vasopressin drips. Will transfer out of ICU. Continue to monitor vitals. He is already on midodrine 10 mg 3 times daily. Discussed with him risk of cardiac ischemia with midodrine. He will let us know immediately in case of any change in symptoms, chest pain or pressure. Reviewed vitals, CBC, CMP. CBC noted with improving leukocytosis. Chemistry with improvement in hyponatremia. Decreased on Solu-Medrol to 10 milligram. Reviewed blood cultures, so far negative. Reviewed sputum culture, 09/16 MRSA, Klebsiella pneumonia. Blood cultures from 09/15 negative, sputum culture appreciated. Patient has remained afebrile. Oral vancomycin started for C. difficile colitis. Discussed with case management. Reviewed C. difficile noted detected. Start oral vancomycin for C. difficile colitis. Continue isolation. At risk of hypovolemia. Hypoalbuminemia. Stool is somewhat pasty. Repeat dose of albumin. Acute encephalopathy with improvement. Trial of oral diet. Few coughs with solids. Not with liquids. Reinforced with him and family aspiration precautions. Has had PICC line placed, reviewed chest x-ray PICC line in good position after repositioning. Remove left arm midline. Reviewed CT abdomen pelvis, prior coccygeal resection, exposed right lower sacral neural arch no destructive bony process identified. Left lower anterior abdominal sigmoidostomy. Mid sigmoid colon Travis pouch. Mild abdominal colonic constipation. Prior cholecystectomy. CTA chest moderate right pleural effusion. Right lower lobe pulmonary partial atelectasis. Cavitary lesion superior lingula and left lung base possibility of cavitary lesion, septic emboli felt less likely. Rounded foci of consolidation bilateral lower lobes. Pneumonitis suspected. Follow-up to confirm clearing recommended. Focal areas of mild bronchiectasis. No PE. (3) Respiratory failure: Improving respiratory failure, aspiration pneumonia, congestive heart failure. Patient with aspiration, eating and drinking while reclined in bed due to discomfort and inability to sit upright. Risk of aspiration recurrence. Reinforced aspiration precautions with him and family. Trial of oral diet. Discussed risk of aspiration. In case of recurrent aspiration, intolerance of oral diet, family stating that case may consider PEG tube. Speech therapy follow up. Patient presents with acute hypoxic respiratory failure. High concerns for aspiration pneumonitis along with congestive heart failure. Sputum culture growing Klebsiella and MRSA. Stop Solu-Medrol CHF now appears more compensated although still moderate pleural effusion. Oxygen supplementation keeping saturation over 90%. DuoNebs every 6 hour, Pulmicort twice daily. D-dimer elevated yesterday. No PE on review of CTA. (4) MRSA pneumonia: (5) Klebsiella pneumonia: (6) Congestive heart failure: About 3 kg below the weight of admission, weight measurement has been fluctuating, and does not appear to be particularly reliable. Overall volume status patient improving, but does still have moderate pleural effusion. Patient with history of congestive heart failure Last echo poor quality, LV mildly reduced Appreciate nephrology intervention with dialysis (7) CKD (chronic kidney disease), stage V: Patient with end-stage renal disease, receiving hemodialysis through dialysis catheter right IJ. Appreciate nephrology consultation (8) ESRD (end stage renal disease): (9) Diabetes: Reviewed Accu-Cheks, blood glucose fluctuating. Continue to cut down steroid. Adjust to consistent carb diet. Continue long-acting insulin, reduced amount Sliding scale insulin Speech therapy consultation Aspiration precautions (10) Afib: Continue amiodarone (11) Hypoxia: (12) Decubitus ulcer: Stage III decubitus pressure ulcer on the right and left buttock Stage IV pressure ulcer on sacral (13) Acute metabolic encephalopathy: (14) Goals of care, counseling/discussion: Plan Hypoglycemia: Noted on the morning of 09/22. Will not intensify insulin regimen for now. Monitor. Is on Solu-Medrol. Full code CLD Protonix for PUD prophylaxis Heparin 5000 every 12 hourly for DVT prophylaxis. Attestations Medical Necessity Statement*: Discharging from the hospital. Diagnoses Pneumonia J18.9 Septic shock A41.9; R65.21 Respiratory failure J96.90 MRSA pneumonia J15.212 Klebsiella pneumonia J15.0 Congestive heart failure I50.9 CKD (chronic kidney disease), stage V N18.5 ESRD (end stage renal disease) N18.6 Diabetes E11.9 Afib I48.91 Hypoxia R09.02 Decubitus ulcer L89.90 Acute metabolic encephalopathy G93.41 Goals of care, counseling/discussion Z71.89
== END 2023-09-27 12:31 | disposition skilled nursing facility (03) | DRG 177 ==
LOC: ER 22:26 → ER IP 09-16 00:38 → CSU 09-16 06:24 → ICU 09-22 05:38 → MEDSURG 09-25 21:53
PROVIDERS: Family Medicine; Hospitalist; Internal Medicine; Student in an Organized Health Care Education/Training Program; Admitting Provider Internal Medicine; Emergency Provider Emergency Medicine; PCP Internal Medicine; Visit Provider Internal Medicine
DX: J15.0 Pneumonia due to Klebsiella pneumoniae (principal); A41.9 Sepsis, unspecified organism; L89.154 Pressure ulcer of sacral region, stage 4; L89.323 Pressure ulcer of left buttock, stage 3; L89.313 Pressure ulcer of right buttock, stage 3; R65.21 Severe sepsis with septic shock; G93.41 Metabolic encephalopathy; I50.23 Acute on chronic systolic (congestive) heart failure; N18.6 End stage renal disease; J96.21 Acute and chronic respiratory failure with hypoxia; I13.2 Hypertensive heart and chronic kidney disease with heart failure and with stage 5 chronic kidney disease, or end stage renal disease; L97.528 Non-pressure chronic ulcer of other part of left foot with other specified severity; J98.11 Atelectasis; I24.89 Other forms of acute ischemic heart disease; A04.72 Enterocolitis due to Clostridium difficile, not specified as recurrent; J15.20 Pneumonia due to staphylococcus, unspecified; Y95 Nosocomial condition; J69.0 Pneumonitis due to inhalation of food and vomit; E11.22 Type 2 diabetes mellitus with diabetic chronic kidney disease; E11.65 Type 2 diabetes mellitus with hyperglycemia; E11.51 Type 2 diabetes mellitus with diabetic peripheral angiopathy without gangrene; E11.649 Type 2 diabetes mellitus with hypoglycemia without coma; E11.621 Type 2 diabetes mellitus with foot ulcer; I35.0 Nonrheumatic aortic (valve) stenosis; I25.10 Atherosclerotic heart disease of native coronary artery without angina pectoris; I95.3 Hypotension of hemodialysis; D63.1 Anemia in chronic kidney disease; I48.91 Unspecified atrial fibrillation; Z79.02 Long term (current) use of antithrombotics/antiplatelets; Z79.01 Long term (current) use of anticoagulants; Z79.4 Long term (current) use of insulin; Z79.82 Long term (current) use of aspirin; Z89.511 Acquired absence of right leg below knee; Z99.2 Dependence on renal dialysis; Z87.891 Personal history of nicotine dependence; Z93.3 Colostomy status; Z99.81 Dependence on supplemental oxygen; Z11.52 Encounter for screening for COVID-19
CPT/HCPCS: 36415; 36416; 36430; 36573; 36592; 36600; 51702; 70450; 71045; 71250; 71275; 72132; 72192; 74176; 80048; 80051; 80053; 80061; 80202; 82140; 82330; 82607; 82746; 82803; 82805; 82962; 83036; 83540; 83550; 83735; 83880; 84100; 84145; 84443; 84484; 85025; 85378; 85730; 86140; 86705; 86706; 86850; 86900; 86920; 87040; 87070; 87077; 87186; 87205; 87340; 87426; 87493; 87635; 87804; 90935; 92523; 92610; 93005; 93010; 94640; 94660; 96365; 96366; 96367; 96372; 96375; 96376; 99291; C1751; J0692; J0885; J1170; J1644; J1815; J2185; J2405; J2543; J2598; J2920; J2930; J3370; J7040; J7050; J7626; P9016; P9046; P9047; Q3014; Q4081; Q9967

== ENCOUNTER 2023-10-13 09:20 | Emergency (ER) | payer MEDICARE, MEDICAID, SELFPAY ==
[2023-10-13 09:25] VITALS: BP 131/62; PULSE 84; RESP 18; TEMP 36.7; O2SAT 100
--- NOTE | 2023-10-13 09:32 | XRR_ITS ---
PROCEDURE INFORMATION: Exam: XR Chest Exam date and time: 10/13/2023 9:56 AM Age: 58 years old Clinical indication: Shortness of breath TECHNIQUE: Imaging protocol: Radiologic exam of the chest. Views: 1 view. COMPARISON: CR XR chest 1V portable [id number] 09/23/2023 9:25 AM FINDINGS: Tubes, catheters and devices: There is a right jugular central venous catheter with its tip projecting in the distal superior vena cava Lungs: There has been interval improvement in bilateral basilar infiltrates. They have not yet resolved. There is a nodular component in the left basilar infiltrate and follow-up to ensure resolution recommended There is a new somewhat nodular opacity in the left perihilar region likely new focus of pneumonia. Follow-up to ensure resolution recommended. Pleural spaces: There has been interval decrease in size of the previously noted right pleural effusion. There is no pneumothorax Heart/Mediastinum: The heart size is within normal limits. Bones/joints: Unremarkable. XR/XR chest 1V portable [id number] IMPRESSION: 1. Interval improvement in bibasilar lung infiltrates but they have not yet resolved. There is a nodular component in the left basilar infiltrate. Follow-up to ensure resolution recommended 2. New somewhat nodular opacity left perihilar region and again follow-up to ensure resolution recommended 3. Interval decrease in size of right pleural effusion 4. Central venous catheter
[2023-10-13 09:44] VITALS: BP 131/62; PULSE 89; RESP 18; O2SAT 95; O2SAT 96
--- NOTE | 2023-10-13 09:57 | ED_ITS ---
HPI - SOB/Dyspnea General: Chief Complaint: Shortness of Breath/Dyspnea Stated Complaint: SOB Time Seen by Provider: 10/13/23 09:33 Source: patient and EMS Mode of arrival: EMS Limitations: no limitations History of Present Illness: HPI Narrative: 58-year-old male is here from nursing [facility] he has no complaints per EMS [facility] states his oxygen was in the 70s there when EMS picked him up he was 98% he is the same here 98% on his baseline oxygen he denies cough denies fever denies any shortness of breath denies any pain [facility] wanted a chest x-ray. Associated symptoms: Deny abdominal pain, chest pain, fever(s), nausea or vomiting Review of Systems Const: Denies: fever(s), chills, body aches or change in appetite Eyes: Denies: blurry vision or eye discomfort ENMT: Denies: throat pain or dental pain Card: Denies: chest pain Resp: Denies: dyspnea GI: Denies: abdominal pain, nausea, vomiting or diarrhea : Denies: dysuria Musc: Denies: neck pain or back pain Skin/Breast: Denies: rash Neuro: Denies: headache(s) Psych: Denies: depression Himanshu/Lymph: Denies: easy bruising All/Imm: Denies: urticaria PFSH ED PFSH: Medical History Diabetes Chronic kidney disease Hypertension Graves disease History of tonsillitis Surgical History History of amputation below knee History of cholecystectomy History of knee surgery History of eye surgery History of tonsillectomy and adenoidectomy Family History Grandmother Dementia Social History Smoking and tobacco/nicotine status: former use of tobacco/nicotine Alcohol intake: never Substance/Drug Use: never Physical Exam Const: COMMON NORMALS: no acute distress, patient oriented x3 and healthy appearing HENMT: COMMON NORMALS: normocephalic and atraumatic HEAD & SCALP: normocephalic and atraumatic Eye: COMMON NORMALS: Equal, round and reactive pupils present and EOMs intact bilaterally PUPIL: Yes Equal, round and reactive pupils present Neck/C-Spine: COMMON NORMALS: full ROM and supple Chest: COMMONS NORMALS: normal inspection of the chest and normal palpation of entire chest wall Resp: COMMON NORMALS: normal respiratory effort, No retractions, No use of a ccessory muscles and clear to auscultation bilaterally AUSCULTATION: clear to auscultation bilaterally Cardio: COMMON NORMALS: regular rate, regular rhythm and No murmurs present (Cardio) RATE: regular rate RHYTHM: regular rhythm GI: COMMON NORMALS: Normal to inspection, nondistended, normoactive bowel sounds present, Soft to palpation, non-tender and no masses PALPATION: Yes Soft to palpation Extremity: COMMON NORMALS: normal to inspection and full ROM Neuro: COMMON NORMALS: patient oriented x3, moves all extremities and no focal motor deficits Psych: COMMON NORMALS: mental status grossly normal, Normal thought process present and cooperative THOUGHT PROCESS: Normal thought process present Skin: COMMON NORMALS: no rashes or lesions noted and no wounds GENERAL SKIN EXAM: no rashes or lesions noted Course Vital Signs: Vital signs: Vital Signs Temperature 98.1 F 10/13/23 09:25 Pulse Rate 85 10/13/23 10:14 Respiratory Rate 16 10/13/23 10:14 Blood Pressure 115/61 10/13/23 10:14 Pulse Oximetry 95 10/13/23 10:14 Oxygen Delivery Me thod Room Air 10/13/23 09:44 MDM - SOB/Dyspnea Medical Decision Making Patient presents here with concerns of hypoxia he has no complaints here his x- ray shows improvement from previous he is stable for discharge back to the [facility]. Medical Records I reviewed the patient's medical records. Lab Data Labs/Radiology: Radiology Impressions Chest X-Ray 10/13/23 09:32 IMPRESSION: 1. Interval improvement in bibasilar lung infiltrates but they have not yet resolved. There is a nodular component in the left basilar infiltrate. Follow-up to ensure resolution recommended 2. New somewhat nodular opacity left perihilar region and again follow-up to ensure resolution recommended 3. Interval decrease in size of right pleural effusion 4. Central venous catheter All radiology interpretation(s) finalized by discharge Discharge Plan Discharge Patient Disposition: Home Clinical Impression: Dyspnea Qualifiers: Dyspnea type: unspecified Qualified Code(s): R06.00 - Dyspnea, unspecified Condition: Stable Prescriptions: No Action atorvastatin 80 mg tablet 80 mg PO BEDTIME Lantus Solostar U-100 Insulin 100 unit/mL (3 mL) insulin pen 14 unit SUBCUT BEDTIME aspirin 81 mg Tablet,Delayed Release (Dr/Ec) 81 mg PO BEDTIME insulin lispro 100 unit/mL insulin pen See Rx Instructions .ROUTE .COMPLEX Rx Instructions: INJECT SUBCUTANEOUSLY PER SLIDING SCALE THREE TIMES DAILY BEFORE MEALS DIRECTED - MAX DAILY DOSE OF 40 UNITS Incruse Ellipta 62.5 mcg/actuation blister with device 1 inh INHALATION DAILY ipratropium-albuterol 0.5 mg-3 mg(2.5 mg base)/3 mL solution for nebulization 3 ml INHALATION Q6H PRN (Reason: Shortness Of Breath) insulin glargine 100 unit/mL Solution 20 unit SUBCUT QAM amiodarone 200 mg Tablet 200 mg PO DAILY clopidogrel 75 mg tablet 75 mg PO DAILY tamsulosin 0.4 mg capsule 0.8 mg PO BEDTIME pantoprazole 40 mg Tablet,Delayed Release (Dr/Ec) 40 mg PO DAILY docusate sodium 100 mg Capsule 200 mg PO DAILY calcium carbonate 500 mg calcium (1,250 mg) Tablet,Chewable 500 mg PO BID PRN (Reason: Heartburn) Santyl 250 unit/gram Ointment 1 applic TOPICAL DAILY PRN (Reason: Wound Care) polyethylene glycol 3350 17 gram/dose Powder 4 g PO BID ondansetron 4 mg tablet,disintegrating 4 mg PO Q6H PRN (Reason: Nausea) calcium acetate(phosphat bind) 667 mg capsule 667 mg PO TID oxycodone 10 mg tablet 10 mg PO Q8H PRN (Reason: Pain) [id number] K-lycop 400-20-300 mcg Tablet 1 tab PO DAILY Eliquis 2.5 mg tablet 2.5 mg PO DAILY melatonin 3 mg Capsule 3 mg PO QPM acetaminophen 325 mg Tablet 650 mg PO QID PRN (Reason: Pain) bisacodyl [Dulcolax (bisacodyl)] 10 mg Suppository 10 mg AK DAILY PRN (Reason: Constipation) bisacodyl [Dulcolax (bisacodyl)] 5 mg Tablet,Delayed Release (Dr/Ec) 5 mg PO DAILY PRN (Reason: Constipation) Discharge Orders: Discharge ED (Routine); Ordered 10/13/23 Ordered By: Phyllis Park Referrals: César Gallegos DO [Primary Care Provider] - 1-3 days Discharge Diet: Advance as tolerated Discharge Activity: Resume usual activity Patient Instructions: Dyspnea (ED) Coding Level of Care Code ED Barrel Line Operator for Gregorio Huffman
[2023-10-13 10:14] VITALS: BP 115/61; PULSE 85; RESP 16; O2SAT 95
[2023-10-13 12:39] VITALS: RESP 16; O2SAT 97
== END 2023-10-13 12:40 | disposition home or self-care (01) ==
PROVIDERS: Emergency Provider Emergency Medicine; PCP Internal Medicine
DX: R06.00 Dyspnea, unspecified (principal); Z79.82 Long term (current) use of aspirin; Z79.4 Long term (current) use of insulin; Z79.02 Long term (current) use of antithrombotics/antiplatelets; Z79.01 Long term (current) use of anticoagulants; E11.22 Type 2 diabetes mellitus with diabetic chronic kidney disease; I12.9 Hypertensive chronic kidney disease with stage 1 through stage 4 chronic kidney disease, or unspecified chronic kidney disease; N18.9 Chronic kidney disease, unspecified; Z89.519 Acquired absence of unspecified leg below knee; Z87.891 Personal history of nicotine dependence
CPT/HCPCS: 71045; 99283

== ENCOUNTER 2023-10-28 10:47 | Inpatient (IN) | payer MEDICARE, MEDICAID, SELFPAY ==
[2023-10-28] VITALS (8 sets, daily range): BP systolic 105–140; BP diastolic 62–72; PULSE 68–99; RESP 14–20; TEMP 36.6–37.1; O2SAT 97–100; BMI 19.5
--- NOTE | 2023-10-28 10:56 | XRR_ITS ---
PROCEDURE INFORMATION: Exam: XR Chest Exam date and time: 10/28/2023 11:06 AM Age: 58 years old Clinical indication: Shortness of breath; Additional info: SOB TECHNIQUE: Imaging protocol: Radiologic exam of the chest. Views: 1 view. COMPARISON: CR (CHEST, ) 10/13/2023 9:56 AM FINDINGS: Tubes, catheters and devices: There is a right internal jugular central venous catheter appropriately positioned with the tip in the lower SVC near the cavoatrial junction. Lungs: Mild patchy ill-defined reticulonodular opacity in both lungs is similar to the findings on 10/13/2023. Pleural spaces: There is no pleural effusion or pneumothorax. Heart/Mediastinum: Cardiomediastinal contours are unremarkable. Bones/joints: Bones are unremarkable. XR/XR chest 1V portable [id number] IMPRESSION: Persistent bilateral pulmonary opacity, similar to the findings on 10/13/2023. Possible persistent or recurrent infection versus scarring and atelectasis.
--- NOTE | 2023-10-28 10:57 | ECG_ITS ---
[facility] Test Date: 2023-10-28 Pat Name: Matthew Barrios Department: Room: Gender: Male Regulatory Affairs Specialist: : [id number] Requested By: Phyllis Park Order Number: [id number] Yuliana MD: Nader Fu M.D. Measurements Intervals [place] Rate: 88 P: 76 MT: 174 QRS: -65 QRSD: 77 T: 44 QT: 368 QTc: 447 Interpretive Statements SINUS RHYTHM PATTERN CONSISTENT WITH PULMONARY DISEASE LEFT ANTERIOR FASCICULAR BLOCK [QRS AXIS <= -45, QR IN I, RS IN II] MODERATE ST DEPRESSION [0.05+ mV ST DEPRESSION] Compared to ECG 09/15/2023 22:15:27 ST (T wave) deviation now present T-wave abnormality no longer present Electronically Signed On 10-28-2023 15:28:39 [employer]AMP [employer] by Nader Fu M.D. [id number]
--- NOTE | 2023-10-28 11:18 | ED_ITS ---
HPI - SOB/Dyspnea 2 General: Chief Complaint: Shortness of Breath/Dyspnea Stated Complaint: sob Time Seen by Provider: 10/28/23 10:50 Source: patient and EMS Mode of arrival: EMS Limitations: no limitations History of Present Illness: HPI Narrative: 58-year-old male who is here from the [facility] he has a history of diabetes was found to be unresponsive this morning at the long term and vomited when EMS arrived his blood sugar was 41 they gave him D10 he is now awake and alert has had a history of aspiration pneumonia he denies any increasing shortness of breath he is on 2.5 L oxygen baseline which she is here. He denies any fever denies any pain anywhere Associated symptoms: Deny abdominal pain, chest pain, fever(s), nausea or vomiting Review of Systems 2 Const: Denies: fever(s), chills, body aches or change in appetite ENMT: Denies: throat pain or dental pain Card: Denies: chest pain Resp: Reports: dyspnea GI: Denies: abdominal pain, nausea, vomiting or diarrhea : Denies: dysuria Musc: Denies: neck pain or back pain Skin/Breast: Denies: rash Neuro: Denies: headache(s) PFSH ED 2 PFSH: Medical History Diabetes Chronic kidney disease Hypertension Graves disease History of tonsillitis Surgical History History of amputation below knee History of cholecystectomy History of knee surgery History of eye surgery History of tonsillectomy and adenoidectomy Family History Grandmother Dementia Social History Smoking and tobacco/nicotine status: former use of tobacco/nicotine Alcohol intake: never Substance/Drug Use: never Physical Exam 2 Const: COMMON NORMALS: no acute distress, patient oriented x3 and healthy appearing HENMT: COMMON NORMALS: normocephalic and atraumatic HEAD & SCALP: n ormocephalic and atraumatic Eye: COMMON NORMALS: Equal, round and reactive pupils present and EOMs intact bilaterally PUPIL: Yes Equal, round and reactive pupils present Neck/C-Spine: COMMON NORMALS: full ROM and supple Chest: COMMONS NORMALS: normal inspection of the chest and normal palpation of entire chest wall Resp: COMMON NORMALS: normal respiratory effort, No retractions, No use of accessory muscles and clear to auscultation bilaterally AUSCULTATION: clear to auscultation bilaterally Cardio: COMMON NORMALS: regular rate, regular rhythm and No murmurs present (Cardio) RATE: regular rate RHYTHM: regular rhythm GI: COMMON NORMALS: Normal to inspection, nondistended, normoactive bowel sounds present, Soft to palpation, non-tender and no masses PALPATION: Yes Soft to palpation Extremity: COMMON NORMALS: normal to inspection and full ROM Neuro: COMMON NORMALS: patient oriented x3, moves all extremities and no focal motor deficits Psych: COMMON NORMALS: mental status grossly normal, Normal thought process present and cooperative THOUGHT PROCESS: Normal thought process present Skin: COMMON NORMALS: no rashes or lesions noted and no wounds GENERAL SKIN EXAM: no rashes or lesions noted Course 2 Vital Signs: Vital signs: Vital Signs Temperature 98.2 F 10/28/23 11:16 Pulse Rate 86 10/28/23 12:00 Respiratory Rate 14 10/28/23 12:00 Blood Pressure 140/71 10/28/23 12:00 Pulse Oximetry 100 10/28/23 12:00 Oxygen Delivery Me thod Nasal Cannula 10/28/23 12:00 Oxygen Flow Rate 3 10/28/23 12:00 MDM - SOB/Dyspnea Medical Decision Making Patient presents here from long term with hypoglycemia also possible aspiration pneumonia. He is continue to have some hypoglycemia here is required D50 I spoke to the hospitalist will admit at this time. Medical Records I reviewed the patient's medical records. Lab Data I reviewed the patient's lab results. 10/28/23 11:21 10/28/23 11:21 Labs/Radiology: Radiology Impressions Chest X-Ray 10/28/23 10:56 IMPRESSION: Persistent bilateral pulmonary opacity, similar to the findings on 10/13/2023. Possible persistent or recurrent infection versus scarring and atelectasis. Laboratory Results WBC 19.89 10^3/uL (3.29-11.43) H 10/28/23 11:21 RBC 3.54 10^6/uL (3.85-5.65) L 10/28/23 11:21 Hgb 10.60 g/dL (11.27-16.99) L 10/28/23 11:21 Hct 34.9 % (37-53) L 10/28/23 11:21 MCV 98.6 fl (82-101) 10/28/23 11:21 MCH 29.9 pg (27-33) 10/28/23 11:21 MCHC 30.4 g/dL (30-55) 10/28/23 11:21 RDW 19.7 % (12.1-15.1) H 10/28/23 11:21 Plt Count 357 10^3/cmm (157-399) 10/28/23 11:21 MPV 8.8 fL (7.4-10.4) 10/28/23 11:21 Neut % (Auto) 88.0 % 10/28/23 11:21 Lymph % (Auto) 3.1 % 10/28/23 11:21 Bucks % (Auto) 7.8 % 10/28/23 11:21 Eos % (Auto) 0.1 % 10/28/23 11:21 Baso % (Auto) 0.4 % 10/28/23 11:21 Neut # (Auto) 17.51 10^3/uL (1.8-7.7) H 10/28/23 11:21 Lymph # (Auto) 0.6 10^3/uL (0.8-4.8) L 10/28/23 11:21 Bucks # (Auto) 1.6 10^3/uL (0.2-0.9) H 10/28/23 11:21 Eos # (Auto) 0.0 10^3/uL (0.0-0.8) 10/28/23 11:21 Baso # (Auto) 0.1 10^3/uL (0.0-0.1) 10/28/23 11:21 Nucleated RBC % (auto) 0 % 10/28/23 11:21 Nucleated RBCs # 0.0 /100WBC 10/28/23 11:21 PT 15.00 SECONDS (12.1-14.9) H 10/28/23 11:21 INR 1.14 (0.8-1.2) 10/28/23 11:21 Sodium 140 mmol/L (136-145) 10/28/23 11:21 Potassium 3.7 mmol/L (3.5-5.1) 10/28/23 11:21 Chloride 103 mmol/L (98-107) 10/28/23 11:21 Carbon Dioxide 25 mmol/L (22-29) 10/28/23 11:21 Anion Gap 15.7 (5-19) 10/28/23 11:21 BUN 38 mg/dL (6-20) H 10/28/23 11:21 Creatinine 3.3 mg/dL (0.7-1.2) H 10/28/23 11:21 GFR Calculation 19.5 mL/min (90-130) L 10/28/23 11:21 Glucose 30 mg/dL (65-115) L* 10/28/23 11:21 POC Glucose 81 mg/dL (70-110) 10/28/23 13:00 Calculated Osmolality 295 mOsm/kg (285-295) 10/28/23 11:21 Calcium 8.6 mg/dL (8.5-10.5) 10/28/23 11:21 Total Bilirubin 0.5 mg/dL (0.15-1.2) 10/28/23 11:21 AST 18 U/L (0-40) 10/28/23 11:21 ALT 20 U/L (0-41) 10/28/23 11:21 Alkaline Phosphatase 164 U/L (40-130) H 10/28/23 11:21 NT-Pro-B Natriuret Pep 63688 pg/mL (0-125) H 10/28/23 11:21 Total Protein 5.6 g/dL (6.6-8.7) L 10/28/23 11:21 Albumin 2.3 g/dL (3.5-5.2) L 10/28/23 11:21 Globulin 3.3 g/dL (1.3-4.6) 10/28/23 11:21 All radiology interpretation(s) finalized by discharge EKG Data EKG 1: I personally reviewed and interpreted this EKG as follows: EKG Interpretation Date: 10/28/23 EKG interpretation time: 11:03 Interpretation: nsr hr [address] or t wave abnormalities qrs 77 qtc 44 Discharge Plan Discharge Patient Disposition: Admitted As Inpatient Clinical Impression: Hypoglycemia, Pneumonia Condition: Stable Prescriptions: No Action atorvastatin 80 mg tablet 80 mg PO BEDTIME@19 Lantus Solostar U-100 Insulin 100 unit/mL (3 mL) insulin pen 20 unit SUBCUT BEDTIME@20 aspirin 81 mg Tablet,Delayed Release (Dr/Ec) 81 mg PO DAILY@07 Incruse Ellipta 62.5 mcg/actuation blister with device 1 inh INHALATION DAILY@07 ipratropium-albuterol 0.5 mg-3 mg(2.5 mg base)/3 mL solution for nebulization 3 ml INHALATION Q6H PRN (Reason: Wheezing) amiodarone 200 mg Tablet 200 mg PO DAILY@07 clopidogrel 75 mg tablet 75 mg PO DAILY@07 tamsulosin 0.4 mg capsule 0.8 mg PO BEDTIME pantoprazole 40 mg Tablet,Delayed Release (Dr/Ec) 40 mg PO DAILY@07 docusate sodium 100 mg Capsule 200 mg PO DAILY@07 Santyl 250 unit/gram Ointment See Rx Instructions .ROUTE .COMPLEX Rx Instructions: apply as directed topically left and right ischial (inner upper thigh) nickel thick santyl to wound bed cover with bordered foam and secure with tape every shift polyethylene glycol 3350 17 gram/dose Powder 17 g PO BID ondansetron 4 mg tablet,disintegrating 4 mg PO Q6H PRN (Reason: Nausea) calcium acetate(phosphat bind) 667 mg capsule 667 mg PO TID oxycodone 10 mg tablet 10 mg PO Q8H PRN (Reason: Pain) Eliquis 2.5 mg tablet 2.5 mg PO DAILY@07 melatonin 3 mg Capsule 3 mg PO BEDTIME calcium carbonate 200 mg calcium (500 mg) Tablet,Chewable 500 mg PO BID PRN (Reason: Heartburn) Nephro-Candis 0.8 mg Tablet 1 tab PO DAILY albuterol sulfate 90 mcg/actuation Hfa Aerosol Inhaler 2 puff INHALATION Q6H PRN (Reason: Dyspnea) insulin lispro 100 unit/mL Insulin Pen 14 unit SUBCUT QAM Santyl 250 unit/gram ointment See Rx Instructions .ROUTE .COMPLEX Rx Instructions: apply sacrum cleanse with ns, apply nickel thick santyl t owound bed pack with ns rolled damp gauze (kerlex) and cover with bordered foam and secure with tape every shift insulin lispro 100 unit/mL Insulin Pen See Rx Instructions .ROUTE .COMPLEX Rx Instructions: sliding scale before meals and at bedtime 141-180=2 units 181-220=4 units 221-260=6 units 261-300=8 units 301-350=10 units 351-400=12 units 401-450=14 units if blood sugar is greater than 450 give 16 units acetaminophen 325 mg Tablet 650 mg PO QID PRN (Reason: Pain) bisacodyl [Dulcolax (bisacodyl)] 10 mg Suppository 10 mg MT DAILY PRN (Reason: Constipation) Rx Instructions: if no results from mom Referrals: César Gallegos DO [Primary Care Provider] - Coding Level of Care Code ED [employer] for Evig Armida
--- NOTE | 2023-10-28 11:19 | PC.NURSE ---
Pt on bedside quality assurance monitor
[2023-10-28 11:35] LABS: Basophils # 0.1 10^3/uL (0.0-0.1); Basophils % 0.4 %; Eosinophils % 0.1 %; Hematocrit 34.9 % (37-53); Lymphocytes # 0.6 10^3/uL (0.8-4.8); Lymphocytes % 3.1 %; Mean Corpuscular HGB Conc 30.4 g/dL (30-55); Mean Corpuscular Hemoglobin 29.9 pg (27-33); Mean Corpuscular Volume 98.6 fl (82-101); Mean Platelet Volume 8.8 fL (7.4-10.4); Monocytes # 1.6 10^3/uL (0.2-0.9); Monocytes % 7.8 %; Neutrophils # 17.51 10^3/uL (1.8-7.7); Nucleated Red Blood Cells % 0 %; Platelet Count 357 10^3/cmm (157-399); Red Blood Count 3.54 10^6/uL (3.85-5.65); Red Cell Distribution Width 19.7 % (12.1-15.1); White Blood Count 19.89 10^3/uL (3.29-11.43)
[2023-10-28] MEDS: dextrose 50% syringe 50 mL IVP ×3 (11:43→21:01)
[2023-10-28 11:44] LABS: INR 1.14 (0.8-1.2)
--- NOTE | 2023-10-28 11:49 | PC.NURSE ---
Pt drinking milk and orange juice
[2023-10-28 11:52] LABS: Alanine Aminotransferase 20 U/L (0-41); Albumin Level 2.3 g/dL (3.5-5.2); Alkaline Phosphatase 164 U/L (40-130); Anion Gap 15.7 (5-19); Aspartate Amino Transferase 18 U/L (0-40); Blood Urea Nitrogen 38 mg/dL (6-20); Calcium 8.6 mg/dL (8.5-10.5); Carbon Dioxide 25 mmol/L (22-29); Chloride 103 mmol/L (98-107); Globulin 3.3 g/dL (1.3-4.6); Glomerular Filtration Rate 19.5 mL/min (90-130); Osmolality Calculated 295 mOsm/kg (285-295); Potassium 3.7 mmol/L (3.5-5.1); Sodium 140 mmol/L (136-145); Total Bilirubin 0.5 mg/dL (0.15-1.2); Total Protein 5.6 g/dL (6.6-8.7)
[2023-10-28 11:59] LABS: Glucose 30 mg/dL (65-115)
[2023-10-28 12:06] LABS: Glucose Point of Care 24 mg/dL (70-110)
[2023-10-28 12:06] LABS: Glucose Point of Care 25 mg/dL (70-110)
--- NOTE | 2023-10-28 12:10 | PC.PHAR ---
pt is from [facility] [phone]-per maria fernanda nurse at [facility] states the pt had all am meds today and 14 units of his insulin-states the pts eliquis is 2.5mg once a day
[2023-10-28 12:12] LABS: Glucose Point of Care 126 mg/dL (70-110)
[2023-10-28 12:13] LABS: NT Pro B Type Natriuretic Pept 29784 pg/mL (0-125)
[2023-10-28 12:34] LABS: Glucose Point of Care 93 mg/dL (70-110)
[2023-10-28 13:04] LABS: Glucose Point of Care 81 mg/dL (70-110)
[2023-10-28] MEDS: ondansetron 2 mg/ML SDV 2 mL 4 MG IVP ×2 (13:35→18:08)
[2023-10-28] MEDS: piperacillin-tazobactam 3.375 GM in sodium chloride 0.9% (plus) 50 ML IV ×2 (13:35→19:55)
--- NOTE | 2023-10-28 14:41 | PM.HP ---
Providers/Chief Complaint Admitting Physician: Yue Zhong MD Primary Care Provider: César Gallegos DO Chief Complaint: sob History of Present Illness Matthew Barrios Jr is a 58 year old male Who presented to the emergency room from [facility] after being found unresponsive today. The last thing he remembers is eating breakfast. Next thing he knows his blood sugars bottomed out . He denied any symptoms such as nausea, diaphoresis, dizziness or blurry vision. He was unaware that his blood sugar was low. He says that he has been a diabetic since . He is on insulin regularly. He denies any recent changes to his insulin. He did have insulin this morning. EMS was called after he was found unresponsive and found his blood sugar to be around 30. They gave him some D10 and brought him here. On arrival his blood sugar was around 25. He vomited once at [facility] and once here. He denies any chest pain, fevers, or difficulty breathing. He coughs all the time. He had aspiration pneumonia in 05/2023 leading to a prolonged hospitalization, intubation and mechanical ventilation. He says he has been coughing ever since. He spits up phlegm. No blood. reports he follows a pureed diet with thickened liquids. Chest xray today shows persistent bilateral pulmonary opacities compared to evaluation from 10/13/23. Notes from that ED visit indicated improvement in chest imaging compared to prior. Radiology today suggests either persistent or recurrent infection versus scarring and atelectasis. Given low blood sugars, Mr Barrios was empirically covered with antibiotics for possible infection and request was made for admission. He is requiring oxygen at similar rate to what he has needed in the past. He received zosyn in ED. review of outside records from [facility] shows that he had a low blood sugar into the 30s documented around the first of the year, around 40 on the and then the 30 today. Other blood sugars since October 21 have ranged from the low of 39 (prior to today lower low) on October 21 up to a high of 338 on October 24. Mr. Barrios is not able to specifically quantify how much vomiting or spit up he has but indicates that it may be a lot. Review of Systems General: Reports: Other (ROS as per HPI or as otherwise noted here) Card: Denies: chest pain or palpitations GI: Reports: nausea, vomiting (spit up frequnetly) and diarrhea (some loose stools but not large volume); Denies: abdominal pain, hematemesis, constipation or hematochezia : Denies: difficulty urinating Musc: Reports: muscle weakness Medications/Allergies Home Medications Medication Instructions Recorded Confirmed Last Taken Type atorvastatin 80 mg tablet 80 mg PO BEDTIME@10/05/20 10/28/23 10/27/23 History aspirin 81 mg tablet,delayed 81 mg PO DAILY@05/06/23 10/28/23 10/28/23 History release umeclidinium 62.5 mcg/actuation 1 inh inhalation DAILY@05/06/23 10/28/23 10/28/23 History blister powder for inhalation (Incruse Ellipta) insulin glargine 100 unit/mL (3 20 unit SUBCUT BEDTIME@05/20/23 10/28/23 10/12/23 History mL) subcutaneous pen (Lantus Solostar U-100 Insulin) acetaminophen 325 mg tablet 650 mg PO QID PRN Pain 06/02/23 10/28/23 Unknown History bisacodyl 10 mg rectal suppository 10 mg WV DAILY PRN Constipation 06/02/23 10/28/23 Unknown History (Dulcolax (bisacodyl)) amiodarone 200 mg tablet 200 mg PO DAILY@09/16/23 10/28/23 10/28/23 History apixaban 2.5 mg tablet (Eliquis) 2.5 mg PO DAILY@09/16/23 10/28/23 10/28/23 History calcium acetate(phosphat bind) 667 667 mg PO TID 09/16/23 10/28/23 10/28/23 History mg capsule clopidogrel 75 mg tablet 75 mg PO DAILY@09/16/23 10/28/23 10/28/23 History collagenase clostridium histo. 250 See Rx Instructions .Route .COMPLEX 09/16/23 10/28/23 10/13/23 History unit/gram topical ointment (Santyl) docusate sodium 100 mg capsule 200 mg PO DAILY@09/16/23 10/28/23 10/28/23 History ipratropium 0.5 mg-albuterol 3 mg 3 ml inhalation Q6H PRN Wheezing 09/16/23 10/28/23 Unknown History (2.5 mg base)/3 mL nebulization soln melatonin 3 mg capsule 3 mg PO BEDTIME 09/16/23 10/28/23 10/27/23 History ondansetron 4 mg disintegrating 4 mg PO Q6H PRN Nausea 09/16/23 10/28/23 10/28/23 History tablet oxycodone 10 mg tablet 10 mg PO Q8H PRN Pain 09/16/23 10/28/23 10/28/23 07:34 History pantoprazole 40 mg tablet,delayed 40 mg PO DAILY@07 09/16/23 10/28/23 10/28/23 History release polyethylene glycol 3350 17 17 g PO BID 09/16/23 10/28/23 10/28/23 History gram/dose oral powder tamsulosin 0.4 mg capsule 0.8 mg PO BEDTIME 09/16/23 10/28/23 10/27/23 History albuterol sulfate 90 mcg/actuation 2 puff inhalation Q6H PRN Dyspnea 10/28/23 10/28/23 Unknown History aerosol inhaler calcium carbonate 200 mg calcium 500 mg PO BID PRN Heartburn 10/28/23 10/28/23 10/27/23 History (500 mg) chewable tablet collagenase clostridium histo. 250 See Rx Instructions .Route .COMPLEX 10/28/23 10/28/23 Unknown History unit/gram topical ointment (Santyl) insulin lispro 100 unit/mL 14 unit SUBCUT QAM 10/28/23 10/28/23 10/28/23 History subcutaneous pen insulin lispro 100 unit/mL See Rx Instructions .Route .COMPLEX 10/28/23 10/28/23 Unknown History subcutaneous pen vitamin B complex-vitamin C-folic 1 tab PO DAILY 10/28/23 10/28/23 10/28/23 History acid 0.8 mg tablet (Nephro-Candis) Allergies Allergy/AdvReac Type Severity Reaction Status Date / Time furosemide [From Lasix] Allergy Intermediate kidney Verified 10/28/23 11:12 complications [place]nut Allergy Unknown inknown Verified 10/28/23 11:12 morphine Allergy ADR-Halluci Verified 10/28/23 11:12 nating trazodone Allergy RASH Verified 10/28/23 11:12 PFSH Acute PFSH: Medical History (Updated 10/28/23 @ 20:19 by Yue Zhong MD) CAD (coronary artery disease) COPD (chronic obstructive pulmonary disease) Hyperlipidemia History of nicotine dependence Oropharyngeal dysphagia Prostatic hypertrophy Atrial fibrillation onset 06/12 when acutely ill, paroxysmal Congestive heart failure mild reduction in EF, combined systolic and diastolic dysfunction Klebsiella pneumonia MRSA pneumonia Septic shock diagnosis on DC summary from admission 09/2023 NSTEMI (non-ST elevated myocardial infarction) Diabetes type 1, uncontrolled Peripheral arterial disease Aortic stenosis Chronic kidney disease Hypertension Graves disease History of tonsillitis Surgical History (Updated 10/28/23 @ 15:35 by Yue Zhong MD) Presence of coronary angioplasty implant and graft History of colostomy during hospital stay at [facility] History of amputation below knee right BKA History of cholecystectomy History of knee surgery History of eye surgery History of tonsillectomy and adenoidectomy Family History Grandmother Dementia Social History (Updated 10/28/23 @ 15:35 by Yue Zhong MD) Smoking and tobacco/nicotine status: former use of tobacco/nicotine Alcohol intake: never Substance/Drug Use: never Housing: Residential Vitals/I&O/Wt Last Vital Signs Temp 98.2 F 10/28/23 11:16 Pulse 86 10/28/23 12:00 Resp 14 10/28/23 12:00 BP 140/71 10/28/23 12:00 Pulse Ox 100 10/28/23 12:00 O2 Del Method Nasal Cannula 10/28/23 12:00 O2 Flow Rate 3 10/28/23 12:00 Weight last 48 hrs Weight 65.317 kg Physical Exam Narrative: Patient is awake and alert. Able to provide history. Normocephalic. Extraocular movements are intact. Oropharynx with dry membranes. During the course of the evaluation had regurgitation of a very small amount of bilious yellow material. Neck is large but supple. Lungs are remarkable for significant upper airway noise transmitted throughout. Does not improve with attempted cough. Cardiovascular exam reveals a regular rate and rhythm. Heart sounds are slightly distant. No current jugular venous distention. Abdomen is soft. Colostomy bag noted in the left sided quadrants. Positive bowel sounds. Extremities right BKA noted. Left lower extremity with 1+ edema. Left heel with approximately 4 cm diameter eschar. Eschar noted at tips of several toes of the left foot. No drainage at evening of these areas of eschar formation. Large open wound approximately 15 cm x 10 cm in the sacral area with some sloughing noted. Malodorous dressing from this wound. Culture taken by me from the area of largest slough with some tracking beyond what was visualized. No gross bleeding but wound bed with some punctate vascularity. 1 area of more darkened tissue distally. No fluctuance noted in this region. No blistering seen. Data 10/28/23 11:21 10/28/23 11:21 Other Labs: Radiology Impressions Chest X-Ray 10/28/23 10:56 IMPRESSION: Persistent bilateral pulmonary opacity, similar to the findings on 10/13/2023. Possible persistent or recurrent infection versus scarring and atelectasis. Laboratory Results WBC 19.89 10^3/uL (3.29-11.43) H 10/28/23 11:21 RBC 3.54 10^6/uL (3.85-5.65) L 10/28/23 11:21 Hgb 10.60 g/dL (11.27-16.99) L 10/28/23 11:21 Hct 34.9 % (37-53) L 10/28/23 11:21 MCV 98.6 fl (82-101) 10/28/23 11:21 MCH 29.9 pg (27-33) 10/28/23 11:21 MCHC 30.4 g/dL (30-55) 10/28/23 11:21 RDW 19.7 % (12.1-15.1) H 10/28/23 11:21 Plt Count 357 10^3/cmm (157-399) 10/28/23 11:21 MPV 8.8 fL (7.4-10.4) 10/28/23 11:21 Neut % (Auto) 88.0 % 10/28/23 11:21 Lymph % (Auto) 3.1 % 10/28/23 11:21 Eddy % (Auto) 7.8 % 10/28/23 11:21 Eos % (Auto) 0.1 % 10/28/23 11:21 Baso % (Auto) 0.4 % 10/28/23 11:21 Neut # (Auto) 17.51 10^3/uL (1.8-7.7) H 10/28/23 11:21 Lymph # (Auto) 0.6 10^3/uL (0.8-4.8) L 10/28/23 11:21 Eddy # (Auto) 1.6 10^3/uL (0.2-0.9) H 10/28/23 11:21 Eos # (Auto) 0.0 10^3/uL (0.0-0.8) 10/28/23 11:21 Baso # (Auto) 0.1 10^3/uL (0.0-0.1) 10/28/23 11:21 Nucleated RBC % (auto) 0 % 10/28/23 11:21 Nucleated RBCs # 0.0 /100WBC 10/28/23 11:21 PT 15.00 SECONDS (12.1-14.9) H 10/28/23 11:21 INR 1.14 (0.8-1.2) 10/28/23 11:21 Sodium 140 mmol/L (136-145) 10/28/23 11:21 Potassium 3.7 mmol/L (3.5-5.1) 10/28/23 11:21 Chloride 103 mmol/L (98-107) 10/28/23 11:21 Carbon Dioxide 25 mmol/L (22-29) 10/28/23 11:21 Anion Gap 15.7 (5-19) 10/28/23 11:21 BUN 38 mg/dL (6-20) H 10/28/23 11:21 Creatinine 3.3 mg/dL (0.7-1.2) H 10/28/23 11:21 GFR Calculation 19.5 mL/min (90-130) L 10/28/23 11:21 Glucose 30 mg/dL (65-115) L* 10/28/23 11:21 POC Glucose 81 mg/dL (70-110) 10/28/23 13:00 Calculated Osmolality 295 mOsm/kg (285-295) 10/28/23 11:21 Calcium 8.6 mg/dL (8.5-10.5) 10/28/23 11:21 Total Bilirubin 0.5 mg/dL (0.15-1.2) 10/28/23 11:21 AST 18 U/L (0-40) 10/28/23 11:21 ALT 20 U/L (0-41) 10/28/23 11:21 Alkaline Phosphatase 164 U/L (40-130) H 10/28/23 11:21 NT-Pro-B Natriuret Pep 52392 pg/mL (0-125) H 10/28/23 11:21 Total Protein 5.6 g/dL (6.6-8.7) L 10/28/23 11:21 Albumin 2.3 g/dL (3.5-5.2) L 10/28/23 11:21 Globulin 3.3 g/dL (1.3-4.6) 10/28/23 11:21 A&P Assessment and plan (1) Hypoglycemia: Present on admission, associated with significant alteration in mental status and responded to administration of sugar water. He did receive insulin this morning but there was no recent change in dosage. Does not take any oral or other injectable medications for diabetes. No report of any chest pain. No new arrhythmias. No new focal areas of weakness. He has had ongoing respiratory issues with cough and some difficulty breathing but does not feel that the symptoms are necessarily worse than what he has been experiencing for several months. He reports regular wound care and no recent changes in wounds. No new GI or urinary complaints. No headaches or new neck pain. No other clear foci of infection. With his frequent regurgitation it is possible this is a contributing factor to hypoglycemia. My biggest concern currently is potential for infection with leukocytosis with left shift in this patient with multiple comorbidities as described. (2) Diabetes type 1, uncontrolled: On chronic insulin, currently with hypoglycemia as described above, at least transiently was unresponsive at the nursing facility (3) Opacities of both lungs present on chest x-ray: Present on admission. Chest x-ray imaging is difficult to interpret currently as patient had significant aspiration pneumonia towards the end of last year. Current imaging studies as well as those from October 13 or significantly improved from those earlier in September. Findings mentioned today by radiology could be reflective of new baseline changes for Mr. Denis gibbons, as radiology says persistent or recurrent infection in same locations. On pulmonary exam is indicated he has some coarse breath sounds though on closer examination this appears to be originating from oral pharyngeal region. On baseline level of oxygen from what I can gather. Received empiric coverage with Zosyn in the emergency room given known history of recurrent aspiration. He does have leukocytosis with a left shift which is concerning, but difficult to ascertain if this might be from a pulmonary source of infection at this time. (4) Pressure ulcer of sacral region, stage 4: Present on admission, malodorous, with some slough, no prior images for comparison (5) Oropharyngeal dysphagia: Diagnosis present on admission. Etiology according to patient's understanding is from prolonged intubation/respiratory issues, though it looks like some of the difficulty may have been present prior to him having a prolonged hospital stay. Describes following a pur?ed diet with thickened liquids. Denies any history of stroke. (6) Congestive heart failure: Combined systolic and diastolic dysfunction with mild reduction in ejection fraction, currently with elevated BNP and some edema. Cannot rule out pulmonary edema on imaging as well. Does not appear acutely decompensated but not optimized presently. Qualifiers: Heart failure chronicity: acute on chronic Heart failure type: diastolic Qualified Code(s): I50.33 - Acute on chronic diastolic (congestive) heart failure (7) CAD (coronary artery disease): [place] artery, [place] heart, currently without described angina with presence of angioplasty implant/graft per correction records. From what I can tell had cardiac evaluation and intervention at [facility] in . Chronically on aspirin and Plavix. (8) Atrial fibrillation: Paroxysmal atrial fibrillation, currently in sinus rhythm, is on chronic amiodarone and anticoagulation. (9) Chronic anticoagulation: With Eliquis secondary to atrial fibrillation history (10) CKD (chronic kidney disease), stage V: On hemodialysis Tuesdays, and Saturdays via dialysis catheter in the right upper chest, began hemodialysis last fall (11) Hyperlipidemia: Chronically on statin (12) Graves disease: Not currently on any treatment (13) COPD (chronic obstructive pulmonary disease): Chronic bronchitis, cannot rule out component of exacerbation contributing but does not seem to be primary at this point in time. Chronically on Incruse Ellipta and albuterol. 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 analgesic: Oxycodone (21) Below-knee amputation of right lower extremity: Plan Inpatient admission Given that patient is a type I diabetic, cannot stop insulin completely but will decrease evening long-acting dosage to 5 units along with low-dose sliding scale at meals, monitoring blood sugars closely Check A1c in the morning Empiric antibiotic coverage for healthcare associated organisms at this time Follow-up pending blood cultures and sacral wound culture Wound care consultation, I spoke with Nickie Kam Speech evaluation Telemetry monitoring Monitor volume status Continue home aspirin, atorvastatin, Plavix, amiodarone and Eliquis Nephrology consultation for usual dialysis schedule Nephrology Temo dominique to continue Breathing treatments as needed Check TSH Continue home Flomax Routine colostomy care Wound care recommendations as recommended by wound care Continue home oxycodone Continue home stool softeners/laxatives VTE prophylaxis: Chronically on Eliquis GI Prophylaxis: Chronically on PPI Telemetry: Currently ordered due to history of A-fib and hypoglycemia, possible infection Reed: not currently indicated Line(s): peripheral IVs and has dialysis catheter Other: Colostomy care Disposition plan: Anticipate discharge back to [facility] with a lower dose of insulin, continuation of wound care, possibly with antibiotics and continued close monitoring of blood sugars and overall clinical status. Code Status: Full Code Supportive care otherwise Findings, concerns and plans were discussed with patient and he was given an opportunity to ask questions Attestations Medical Necessity Statement*: Anticipated stay greater than two midnights in this patient with multiple comorbid medical conditions presenting with hypoglycemia in the 20s to 30s. He is only on insulin. No change in insulin dosing reported. Concern is for possibility of an infectious source causing low blood sugar levels lately. Also within differential are cardiac/vascular or metabolic reasons for hypoglycemia. Patient had a prolonged hospital stay just a few months ago and is at high risk of rapid clinical decline up to and including the possibility of if reason for such significant hypoglycemia is not identified and corrected within a monitored care setting. and High Time for a total of 90 minutes, includes reviewing past or interval history, examining/interviewing patient, placing orders and documenting encounter Diagnoses Hypoglycemia E16.2 Diabetes type 1, uncontrolled Opacities of both lungs present on chest x-ray R91.8 Pressure ulcer of sacral region, stage 4 L89.154 Oropharyngeal dysphagia R13.12 Acute on chronic diastolic congestive heart failure I50.33 Heart failure chronicity: acute on chronic Heart failure type: diastolic CAD (coronary artery disease) I25.10 Atrial fibrillation I48.91 Chronic anticoagulation Z79.01 CKD (chronic kidney disease), stage V N18.5 Hyperlipidemia E78.5 Graves disease E05.00 COPD (chronic obstructive pulmonary disease) J44.9 Prostatic hypertrophy N40.0 Presence of colostomy Z93.3 Diabetic foot ulcer E11.621; L97.509 Diabetic ulcer of heel E11.621; L97.409 Pressure ulcer of left buttock, stage 3 L89.323 Pressure ulcer of right buttock, stage 3 L89.313 oil heaterman (current) use of opiate analgesic Z79.891 Below-knee amputation of right lower extremity S88.111A
[2023-10-28] MEDS: vancomycin 1,000 MG in sodium chloride 0.9% 250 ML 250 MG IV (14:51)
[2023-10-28 16:00] LABS: Glucose Point of Care 94 mg/dL (70-110)
[2023-10-28] MEDS: levofloxacin-dextrose 5 % 750 MG/150 ML PREMIX 100 MG IV (18:08)
[2023-10-28] MEDS: acetaminophen 325 mg Tablet 650 MG PO (19:56)
[2023-10-28 21:03] LABS: Glucose Point of Care 38 mg/dL (70-110)
[2023-10-28] MEDS: dextrose 5 % 500 ML 100 ML IV (21:04)
[2023-10-28 21:20] LABS: Glucose Point of Care 178 mg/dL (70-110)
[2023-10-28] MEDS: tamsulosin 0.4 mg Capsule 0.8 MG PO (21:34)
[2023-10-28 22:08] LABS: Troponin T (5th) Once 481 ng/L (0-15)
[2023-10-28 22:23] LABS: Glucose Point of Care 173 mg/dL (70-110)
[2023-10-28 23:40] LABS: Glucose Point of Care 204 mg/dL (70-110)
[2023-10-29] VITALS (12 sets, daily range): BP systolic 91–130; BP diastolic 47–72; PULSE 75–86; RESP 16–18; TEMP 36.6–36.8; O2SAT 90–100
[2023-10-29 00:12] LABS: Troponin 5 2HR Delta 2.6 ABS# (0-10)
[2023-10-29 00:16] LABS: Troponin 5 2HR 483.6 ng/L (0-15)
[2023-10-29] MEDS: oxyCODONE 5 mg IR Tab/Cap 10 MG PO ×4 (00:35→20:28)
[2023-10-29] MEDS: heparin 5,000 unit/mL INJ 1 mL IV (01:43)
[2023-10-29] MEDS: heparin drip 25,000 UNIT/500 ML PREMIX 18.29 UNIT IV (01:46)
[2023-10-29] MEDS: dextrose 10% 1,000 ML 100 ML IV ×2 (02:55→16:12)
--- NOTE | 2023-10-29 03:10 | ECG_ITS ---
[facility] Test Date: 2023-10-29 Pat Name: Matthew Barrios Department: Room: 253 Gender: Male Microbiology Lab Assistant: : 1965 Requested By: Yue Zhong Order Number: [id number] Yuliana MD: James Woodall M.D. Measurements Intervals [place] Rate: 77 P: -25 RI: 164 QRS: 120 QRSD: 87 T: -23 QT: 404 QTc: 459 Interpretive Statements SINUS RHYTHM POSSIBLE RIGHT VENTRICULAR HYPERTROPHY [SOME/ALL OF: PROMINENT R IN V1, LATE TRANSITION, RAD, SHIVA, SSS] POSSIBLE ANTERIOR MYOCARDIAL INFARCTION , OF INDETERMINATE AGE [30 ms Q WAVE IN V3/V4, OR R < 0.2 mV IN V4] Compared to ECG 10/28/2023 11:03:29 Atrial abnormality now present Myocardial infarct finding now present Left anterior fascicular block no longer present ST (T wave) deviation no longer present Electronically Signed On 10-29-2023 21:45:37 ELECTRO MECHANICAL TECHNOLOGIST by James Woodall M.D. [email or web address]
[2023-10-29 04:36] LABS: Basophils # 0.1 10^3/uL (0.0-0.1); Basophils % 0.4 %; Eosinophils # 0.1 10^3/uL (0.0-0.8); Eosinophils % 0.5 %; Hematocrit 31.2 % (37-53); Lymphocytes # 1.1 10^3/uL (0.8-4.8); Lymphocytes % 6.1 %; Mean Corpuscular HGB Conc 30.4 g/dL (30-55); Mean Corpuscular Hemoglobin 30.2 pg (27-33); Mean Platelet Volume 9.1 fL (7.4-10.4); Monocytes # 1.2 10^3/uL (0.2-0.9); Monocytes % 6.5 %; Neutrophils # 15.61 10^3/uL (1.8-7.7); Neutrophils % 86.1 %; Nucleated Red Blood Cells % 0 %; Platelet Count 325 10^3/cmm (157-399); Red Blood Count 3.15 10^6/uL (3.85-5.65); Red Cell Distribution Width 19.7 % (12.1-15.1); White Blood Count 18.14 10^3/uL (3.29-11.43)
[2023-10-29 04:48] LABS: Glucose Point of Care 285 mg/dL (70-110)
[2023-10-29 04:56] LABS: Troponin 5 6HR Delta -9.2 ng/L (0-12)
[2023-10-29 04:57] LABS: Troponin 5 6HR 490.2 ng/L (0-15)
[2023-10-29 05:41] LABS: Alanine Aminotransferase 17 U/L (0-41); Alkaline Phosphatase 157 U/L (40-130); Anion Gap 15.7 (5-19); Aspartate Amino Transferase 16 U/L (0-40); Blood Urea Nitrogen 44 mg/dL (6-20); Calcium 8.1 mg/dL (8.5-10.5); Carbon Dioxide 24 mmol/L (22-29); Chloride 100 mmol/L (98-107); Globulin 2.6 g/dL (1.3-4.6); Glomerular Filtration Rate 18.2 mL/min (90-130); Glucose 276 mg/dL (65-115); Magnesium 2.1 mg/dL (1.7-2.3); Osmolality Calculated 301 mOsm/kg (285-295); Phosphorus 4.1 mg/dL (2.5-4.5); Potassium 4.7 mmol/L (3.5-5.1); Sodium 135 mmol/L (136-145); Total Bilirubin 0.4 mg/dL (0.15-1.2); Total Protein 4.6 g/dL (6.6-8.7)
[2023-10-29 05:45] LABS: Estmated Average Glucose 103; Hemoglobin A1C 5.2 % (4.0-6.0)
[2023-10-29 05:46] LABS: Thyroid Stimulating Hormone 0.68 uIU/mL (0.27-4.20)
[2023-10-29 05:47] LABS: Hepatitis B Surface AB 34.8 (11.5-1000); Hepatitis B Surface Antigen Non-Reactive (Nonreactive)
--- OUTSIDE RECORDS SUMMARY | 2023-10-29 06:06 | XMS_ITS ---
Author Name Heather Kumar Address [address] [place] [address] Phone [phone] Organization [facility], NA DOCUMENT DISCLAIMER Multiple document versions may exist, please be sure you review the latest version. The information in the [facility] Progress Note Document represents a providers documented clinical note containing certain health and medical information. It may not contain the complete medical history for the patient and should be independently verified. The represented time in the document is Eastern Time PROVIDER ROUNDING NOTE COMPREHENSIVE Patient:?Matthew?Barrios,?1965,?58y,?M Dialysis?Location:[facility] Attending?Portfolio Strategist:?Isma Service?Date:?10/01/2023 Service?Provider:?Heather?José,? I?met?face?to?face?with?the?patient?today. OVERVIEW The?patient?presented?with?ESRD?on?dialysis Primary?cause?of?renal?failure:?Type?2?diabetes?mellitus&#16 0;with?diabetic?chronic?kidney?disease Comments:?Labs?pending?for?September.?August?labs. He?has?a?buttock?wound.?He?has?had?debridement.?He&#160 ;[facility]. Medications?and?labs?reviewed. DIALYSIS?PRESCRIPTION ??IHD?3x?Week?Start?date:?09/28/23 ??Dialyzer:?180NRe?Optiflux ??BFR:?450 ??DFR:?Autoflow?1.5 ??Potassium:?2.0 ??Sodium:?138 ??EDW:?70 ??Duration:?3:30 ??Calcium:?2.5 ??Bicarb:?35 ??Rx?updated?on:?09/28/2023 TREATMENT?ASSESSMENT Comments:?Hold?BP?meds?on?HD?days?to?allow?us?to get?UF? Blood?pressure?controlled.?No?changes?indicated.? BP?Sit?Pre ??09/28/2023:?100/49 ??09/14/2023:?119/54 ??09/11/2023:?116/54 BP?Sit?Post ??09/28/2023:?94/56 ??09/14/2023:?140/59 ??09/11/2023:?116/52 Tx?Duration ??09/28/2023:?3:32 ??09/14/2023:?3:40 ??09/11/2023:?3:30 Missed?Treatments 0?-?last?30?days 0?-?last?60?days FLUID?ASSESSMENT Comments:?Has?had?some?larger?fluid?gains.?Has?been?better?recently.? No?changes?indicated.? EDW?(kg) ??09/28/2023:?78.6 ??09/14/2023:?78.6 ??09/11/2023:?79.0 Weight?Pre?(kg) ??09/28/2023:?71.1 ??09/14/2023:?81.8 ??09/11/2023:?81.0 Weight?Post?(kg) ??09/28/2023:?69.8 ??09/14/2023:?78.6 ??09/11/2023:?78.6 PWV?(kg) ??09/28/2023:?-8.8 ??09/14/2023:?0.0 ??09/11/2023:?-0.4 UF?Rate?(mL/kg/hr) ??09/28/2023:?5.3 ??09/14/2023:?11.1 ??09/11/2023:?8.7 ADEQUACY?ASSESSMENT Adequacy?target?met.?Prescription?compliance?acceptable.?No?changes?indicated.? spKt/V,?URR ??09/03/2023:?1.79,?79.0 ??08/29/2023:?1.31,?69.0 ACCESS?ASSESSMENT ??Access?Type:?CVCatheter ??Access?SubType:?Tunneled ??Access?Status:?Active?(In?Use)?-?08/28/2023 ??Access?Location:?Chest ??Placed:?06/19/2023 Vascular?access?reviewed.?Referral?made?for?access?revision/ intervention. ANEMIA?ASSESSMENT Comments:?On?IV?iron?and?TAVON?protocol. HGB,?TSAT ??09/11/2023:?7.5,?- ??09/05/2023:?7.9,?- ??08/29/2023:?9.3,?10.0 ?? Ferritin ??08/29/2023:?515.0 Mircera,?IVP?(mcg) ??09/11/2023:?50 Iron?Sucrose?(Venofer)?(mg) ??09/14/2023:?100 ??09/11/2023:?100 ??09/09/2023:?100 BMM?ASSESSMENT PTH?low.?Calcium?controlled.?Phosphorus?controlled.?BMM?meds&#160 ;adherence?acceptable.?No?changes?indicated.? Phosphorus,?Calcium ??08/29/2023:?5.7,?8.7 ?? PTH,?Intact ??08/29/2023:?42.0 NUTRITION?ASSESSMENT Comments:?He?reports?eating?more?protein.? Potassium?controlled.?Albumin?below?goal.?Diet?reviewed?with&#160 ;patient.?Referred?to?dietitian.? Albumin,?Potassium ??08/29/2023:?2.7,?5.5 ?? eNPCR ??09/03/2023:?0.49 PHYSICAL?EXAM Comments:?RBKA Exam?Performed.?Vital?Signs?Reviewed.?Lungs?-?Clear.?CV&#160 ;-?Blood?pressure?noted.?CV?-?RRR.?EXT?-?No?edema.?EXT?-?No?ulcers. DIAGNOSIS Chief?Complaint:?N18.6?End?stage?renal?disease Patient?is?stable. Patient?data?updated?10/01/2023?at?12:33?PM Signed?By:?José,?Heather,???on?10/01/2023?12:45:35?PM END OF DOCUMENT
--- OUTSIDE RECORDS SUMMARY | 2023-10-29 06:06 | XMS_ITS | Patient Health Record ---
Author Name Unknown Organization [facility] Address [address] [place] [address] Care Team Providers Care Decay Control Operator Name Role Phone Laverne Mcpherson Primary Care Provider Tan Ashford, Barrera Unavailable [phone] ALLERGIES Allergen (clinical drug ingredient) Drug/Non Drug [...] 5 MG Take 1 capsule by mo [facility] twice daily for 90 Active atorvastatin [...] Date Status Comme nts Influenza (whole), CPT 67488 Inactive Unknown 07/26/2017 Administered Influenza (whole), CPT 03025 Inactive Unknown 07/21/2018 Administered SOCIAL HISTORY Tobacco Use: Social History Observation Description Date Details (start date - stop date) Former Smoker NA - NA Sex Assigned At : Social History Observation Description Sex Assigned At Unknown Household Question Answer Notes Evangelical: Baptism Level of education: finished college Tobacco Use/Smoking [...] in chronic kidney disease (D63.1) Active confirmed 696833977 Problem Type 2 diabetes mellitus with diabetic chronic kidney disease (E11.22) Active confirmed Diabetic renal disease (582659960) Problem Hypertensive chronic kidney disease with stage 1 through stage 4 chronic kidney disease, or unspecified chronic kidney disease (I12.9) Active confirmed Chronic kidney disease due to hypertension (321191720811144) Problem End stage renal disease (N18.6) Active confirmed 85415616 Problem Dependence on renal dialysis (Z99.2) Active confirmed 911136346 Problem Iron deficiency anemia, unspecified iron deficiency anemia type (D50.9) Active confirmed Iron def iciency anemia (80864019) Problem Iron deficiency anemia, unspecified iron deficiency anemia type (D50.9) Active confirmed 69080611 Problem CKD (chronic kidney disease), stage III (N18.3) Active confirmed Chronic kidney disease stage 3 (378715517) Problem Nephrotic range proteinuria (R80.9) Active confirmed 173302623 Problem Hyperphosphatemia (E83.39) Active confirmed Hyperphosphatem ia (17884947) Problem Metabolic acidosis (E87.2) Active confirmed Metabolic acido sis (40856288) Problem Hypertension, benign (I10) Active confirmed Benign hyperten justice (84696823) Problem Hyperuricemia (E79.0) Active confirmed Hyperuricemia (35503616) Problem Diabetes (E11.9) Active confirmed Diabe nadeem mellitus without complication (636911416) Problem CKD (chronic kidney disease) stage 4, GFR 15-29 ml/min (N18.4) Active confirmed 853515786 Problem Anemia (D64.9) Active confirmed Anemia (171582475) Problem Hypoalbuminemia (E88.09) Active confirmed 123913281 Problem Proteinuria (R80.9) Active confirmed Pr oteinuria (96138073) Problem Chronic kidney disease, stage IV (severe) (N18.4) Active confirmed Chronic kid terri disease stage 4 (876270563) Problem Iron deficiency anemia secondary to inadequate dietary iron intake (D50.8) Active confirmed 081735190 Problem Type 2 diabetes mellitus with chronic kidney disease, without long-term current use of insulin, unspecified CKD stage (E11.22) Active confirmed Diabetic gabo l disease (755127528) Problem Chronic kidney disease due to diabetes mellitus (E11.22) Active confirmed Diabetic renal disease (563129466) Problem 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) Active confirmed Chronic kidney disease due to type 1 diabetes mellitus (13257891616952) Problem Chronic metabolic acidosis (E87.22) Active confirmed 93195181 VITAL SIGNS Heart Rate 71 /min 03/13/2023 Temperature 97.0 degrees Fahrenheit 03/13/2023 Oximetry 94 % 03/13/2023 Blood pressure diastolic 59 mm Hg 03/13/2023 Weight-kg 88.45 kg 03/13/2023 Height 71 in 03/13/2023 Blood pressure systolic 134 mm Hg 03/13/2023 Weight 195 lbs 03/13/2023 BMI 27.19 kg/m2 03/13/2023 Encounters Encounter Location Date Provider Diagnosis [facility] [address] [place] [address] 11/28/2022 Barrera Ashford CKD (chronic kidney disease) stage 4, GFR 15-29 ml/min N18.4 ; Metabolic acidosis E87.2 ; Hypoalbuminemia E88.09 ; Hyperphosphatemia E83.39 ; Iron deficiency anemia, unspecified iron deficiency anemia type D50.9 ; Anemia D64.9 ; FRANCISCO J (acute kidney injury) N17.9 ; Chronic kidney disease due to diabetes mellitus E11.22 and Anemia in chronic kidney disease D63.1 [facility] [address] [place] [address] 12/13/2022 Barrera Ashford Chronic kidney disea se [...] Pharmacologic therapy Z79.899 and Former smoker Z87.891 [facility] [address] [place] [address] 01/09/2023 Barrera Ashford [facility] [address] [place] [address] 02/01/2023 Barrera Ashford Chronic kidney disea se [...] Chronic metabolic acidosis E87.22 and Hyperuricemia E79.0 [facility] [address] [place] [address] [address] [place] [address] 02/15/2023 Barrera Ashford [facility] [address] [place] [address] 03/13/2023 Barrera Ashford Chronic kidney disea se [...] secondary to inadequate dietary iron intake D50.8 [facility] [address] [place] [address] [address] [place] [address] 07/31/2023 Barrera Ashford Anemia D64.9 ; CKD (chronic kidney disease) stage 4, GFR 15-29 ml/min N18.4 and Anemia in chronic kidney disease D63.1 ASSESSMENTS Encounter Date Diagnosis Assessment Notes Treatment Notes Treatment Clinical Notes 12/13/2022 Hypertensive chronic kidney disease with stage 1 through stage 4 chronic kidney disease, or unspecified chronic kidney disease (ICD-10 - I12.9) 12/13/2022 Chronic kidney disease due to type 1 diabetes mellitus (ICD-10 - E10.22) 03/13/2023 Hypertensive chronic kidney disease with stage 1 through stage 4 chronic kidney disease, or unspecified chronic kidney disease (ICD-10 - I12.9) 03/13/2023 Chronic kidney disease due to type 1 diabetes mellitus (ICD-10 - E10.22) 07/31/2023 Anemia (ICD-10 - D64.9) 02/01/2023 Chronic kidney disease due to diabetes mellitus (ICD-10 - E11.22) 11/28/2022 CKD (chronic kidney disease) stage 4, GFR 15-29 ml/min (ICD-10 - N18.4) 11/28/2022 Metabolic acidosis (ICD-10 - E87.2) 07/31/2023 CKD (chronic kidney disease) stage 4, GFR 15-29 ml/min (ICD-10 - N18.4) 02/01/2023 Hypertensive chronic kidney disease with stage 1 through stage 4 chronic kidney disease, or unspecified chronic kidney disease (ICD-10 - I12.9) 03/13/2023 Chronic kidney disease, stage IV (severe) (ICD-10 - N18.4) 12/13/2022 Chronic kidney disease, stage IV (severe) (ICD-10 - N18.4) 12/13/2022 Hypoalbuminemia (ICD-10 - E88.09) 03/13/2023 Anemia in chronic kidney disease (ICD-10 - D63.1) 07/31/2023 Anemia in chronic kidney disease (ICD-10 - D63.1) 02/01/2023 Chronic kidney disease, stage IV (severe) (ICD-10 - N18.4) 11/28/2022 Hypoalbuminemia (ICD-10 - E88.09) 11/28/2022 Hyperphosphatemia (ICD-10 - E83.39) 02/01/2023 Hypoalbuminemia (ICD-10 - E88.09) 03/13/2023 Iron deficiency anemia, unspecified iron deficiency anemia type (ICD-10 - D50.9) 12/13/2022 Nephrotic range proteinuria (ICD-10 - R80.9) 12/13/2022 Hyperphosphatemia (ICD-10 - E83.39) 03/13/2023 Bilateral leg edema (ICD-10 - R60.0) 11/28/2022 Iron deficiency anemia, unspecified iron deficiency anemia type (ICD-10 - D50.9) 02/01/2023 Hyperphosphatemia (ICD-10 - E83.39) 11/28/2022 Anemia (ICD-10 - D64.9) 02/01/2023 Nephrotic range proteinuria (ICD-10 - R80.9) 03/13/2023 Hypoalbuminemia (ICD-10 - E88.09) 12/13/2022 Anemia in chronic kidney disease (ICD-10 - D63.1) 12/13/2022 Iron deficiency anemia, unspecified iron deficiency anemia type (ICD-10 - D50.9) 03/13/2023 Chronic metabolic acidosis (ICD-10 - E87.22) 11/28/2022 FRANCISCO J (acute kidney injury) (ICD-10 - N17.9) 02/01/2023 Anemia in chronic kidney disease (ICD-10 - D63.1) 11/28/2022 Chronic kidney disease due to diabetes mellitus (ICD-10 - E11.22) 02/01/2023 Iron deficiency anemia, unspecified iron deficiency anemia type (ICD-10 - D50.9) 03/13/2023 Hyperuricemia (ICD-1 0 - E79.0) 12/13/2022 Chronic metabolic acidosis (ICD-10 - E87.22) 12/13/2022 Hyperuricemia (ICD-1 0 - E79.0) 03/13/2023 Nephrotic range proteinuria (ICD-10 - R80.9) 02/01/2023 Chronic metabolic acidosis (ICD-10 - E87.22) 11/28/2022 Anemia in chronic kidney disease (ICD-10 - D63.1) 02/01/2023 Hyperuricemia (ICD-1 0 - E79.0) 03/13/2023 Pharmacologic therap y (ICD-10 - Z79.899) 12/13/2022 Pharmacologic therap y (ICD-10 - Z79.899) 12/13/2022 Former smoker (ICD-1 0 - Z87.891) [...] Pending Test Test Name Order Date Albumin 12924 05/03/2020 Basic Metabolic Panel 98190 05/03/2020 Ferritin 40049 05/03/2020 Iron Binding Capacity Total 81468 2019 Iron Level 27529 05/03/2020 Phosphorus (B) 30978 05/03/2020 Protein (U) Random 98677 05/03/2020 Uric Acid (B) 93907 05/03/2020 Creatinine (U) 10249 05/03/2020 UA Reflex Micro, Reflex Cult 36967, 8101 5, 09558 05/03/2020 PTH Intact 26807 05/03/2020 Albumin 02773 12/29/2020 Basic Metabolic Panel 07973 12/29/2020 Ferritin 87969 12/29/2020 Hemoglobin 50348 12/29/2020 Magnesium (B) 33526 12/29/2020 Phosphorus (B) 60778 12/29/2020 Protein (U) Random 39868 12/29/2020 Uric Acid (B) 68482 12/29/2020 Creatinine (U) 17510 12/29/2020 UA Reflex Micro, Reflex Cult 21937, 8101 5, 15410 12/29/2020 PTH Intact 78641 12/29/2020 % Iron Saturation (Fe & TIBC)--04735,835 50 12/29/2020 Albumin 80031 11/28/2022 Basic Metabolic Panel 83910 11/28/2022 Ferritin 22005 11/28/2022 Hemoglobin 04502 11/28/2022 Iron Binding Capacity Total 10745 2022 Iron Level 94064 11/28/2022 Magnesium (B) 05145 11/28/2022 Phosphorus (B) 54586 11/28/2022 Protein (U) Random 94290 11/28/2022 Uric Acid (B) 20616 11/28/2022 Creatinine (U) 13469 11/28/2022 UA Reflex Micro, Reflex Cult 06153, 8101 5, 08980 11/28/2022 PTH Intact 19449 11/28/2022 % Iron Saturation (Fe & TIBC)--83922,835 50 11/28/2022 Future Test Test Name Order Date Basic Metabolic Panel -- 45166 Creatinine Urine -- 55086 01/25/2022 Ferritin -- 36667 01/25/2022 Iron Binding Capacity Total -- 04488 04/2022 Iron Level -- 89769 01/25/2022 Magnesium Level -- 08730 01/25/2022 Phosphorus Level -- 40864 01/25/2022 Protein Urine -- 05170 01/25/2022 UA Reflex -- 38909 01/25/2022 Uric Acid -- 53423 01/25/2022 PTH Intact--71930 01/25/2022 Hemoglobin 36303 01/25/2022 Albumin Serum--08756 01/25/2022 Albumin 65407 04/26/2022 Basic Metabolic Panel 81007 04/26/2022 Ferritin 96234 04/26/2022 Hemoglobin 62179 04/26/2022 Iron Binding Capacity Total 66154 2021 Iron Level 52576 04/26/2022 Magnesium (B) 00854 04/26/2022 Phosphorus (B) 39874 04/26/2022 Protein (U) Random 44242 04/26/2022 Uric Acid (B) 77643 04/26/2022 Creatinine (U) 57466 04/26/2022 UA Reflex Micro, Reflex Cult 11389, 8101 5, 14136 04/26/2022 Basic Metabolic Panel 35494 07/03/2022 UA Without Micro-Auto 27892 02/27/2023 Basic Metabolic Panel 69913 02/27/2023 Ferritin 44236 02/27/2023 Hemoglobin 81893 02/27/2023 Iron Binding Capacity Total 08432 2022 Iron Level 38444 02/27/2023 Magnesium (B) 35390 02/27/2023 Phosphorus (B) 43209 02/27/2023 Protein (U) Random 04238 02/27/2023 Uric Acid (B) 02803 02/27/2023 Microalbumin (U) Random 35438 02/27/2023 Creatinine (U) 09252 02/27/2023 PTH Intact 88604 02/27/2023 Albumin 89516 07/31/2023 Basic Metabolic Panel 86137 07/31/2023 Ferritin 64378 07/31/2023 Hemoglobin 20878 07/31/2023 Iron Binding Capacity Total 25007 2022 Iron Level 42879 07/31/2023 Magnesium (B) 11300 07/31/2023 Protein (U) Random 08893 07/31/2023 Uric Acid (B) 08453 07/31/2023 Creatinine (U) 62823 07/31/2023 UA Reflex Micro, Reflex Cult 55436, 8101 5, 78665 07/31/2023 PTH Intact 87291 07/31/2023 Insurance Providers Payer Name Payer Address Payer Phone Subscriber Number Group Number Insured Name Patient Relationship to Insured Coverage Start Date Coverage End Date [facility] Medicare Advantage HMO [address] [address] [place] [address] [id number] Matthew Barrios Self - patient is the insured [place] Medicaid [address] [place] [address] [id number] Denis Matthew Self - patient is the insured [place] Medicare [address] [place] [phone] [id number] Matthew Barrios Self - patient is the insured MEDICAL (GENERAL) HISTORY Medical History History ICD Code Type I Diabeties Hypertension Chronic kidney disease, stage IV Stroke COVID (07/2020) PAD Proteinuria Surgical History Surgery Date(Month/Year) right below the knee ampuation cholecystectomy cataract removal appendectomy Hospitalization History Reason Date(Month/Year) see surgical
--- OUTSIDE RECORDS SUMMARY | 2023-10-29 06:06 | XMS_ITS ---
Author Name Madison Gibbs Address [address] [place] [address] Phone [phone] Organization [facility] e, NA DOCUMENT DISCLAIMER Multiple document versions may exist, please be sure you review the latest version. The information in the [facility] Progress Note Document represents a providers documented clinical note containing certain health and medical information. It may not contain the complete medical history for the patient and should be independently verified. The represented time in the document is Eastern Time PROVIDER ROUNDING NOTE BASIC Patient:?Matthew?Denis,?1965,?58y,?M Dialysis?Location[place] Attending?[place] Blower:?Heather?José Service?Date:?10/08/2023 Service?Provider:?Madison?Bernie,?ASSISTANT TODDLER TEACHER I?met?face?to?face?with?the?patient?today. OVERVIEW The?patient?presented?with?ESRD?on?dialysis Primary?cause?of?renal?failure:?Type?2?diabetes?mellitus&#16 0;with?diabetic?chronic?kidney?disease Comments:?He?has?a?buttock?wound.?He?has?had?debridemen t.?He?has[facility]wound[facility]at[facility]. VSS,?seen?on?HD?machine,?denies?needs?for?me?today Medications?and?labs?reviewed. DIALYSIS?PRESCRIPTION ??IHD?3x?Week?Start?date:?09/28/23 ??Dialyzer:?180NRe?Optiflux ??BFR:?450 ??DFR:?Autoflow?1.5 ??Potassium:?2.0 ??Sodium:?138 ??EDW:?70 ??Duration:?3:30 ??Calcium:?2.5 ??Bicarb:?35 ??Rx?updated?on:?09/28/2023 TREATMENT?ASSESSMENT Comments:?Hold?BP?meds?on?HD?days?to?allow?us?to get?UF? BP?Sit?Pre ??10/05/2023:?101/48 ??10/03/2023:?78/45 ??10/01/2023:?107/56 BP?Sit?Post ??10/05/2023:?110/55 ??10/03/2023:?124/66 ??10/01/2023:?112/73 Tx?Duration ??10/05/2023:?3:30 ??10/03/2023:?3:34 ??10/01/2023:?3:30 Missed?Treatments 0?-?last?30?days 0?-?last?60?days FLUID?ASSESSMENT Comments:?Has?had?some?larger?fluid?gains.?Has?been?better?recently.? EDW?(kg) ??10/05/2023:?70.0 ??10/03/2023:?70.0 ??10/01/2023:?70.0 Weight?Pre?(kg) ??10/05/2023:?69.4 ??10/03/2023:?70.8 ??10/01/2023:?73.0 Weight?Post?(kg) ??10/05/2023:?69.4 ??10/03/2023:?70.0 ??10/01/2023:?71.0 PWV?(kg) ??10/05/2023:?-0.6 ??10/03/2023:?0.0 ??10/01/2023:?1.0 UF?Rate?(mL/kg/hr) ??10/05/2023:?0 ??10/03/2023:?3.2 ??10/01/2023:?8 ADEQUACY?ASSESSMENT Comments:?No?new?labs?to?review spKt/V,?URR ??09/28/2023:?1.67,?77.0 ??09/03/2023:?1.79,?79.0 ??08/29/2023:?1.31,?69.0 ACCESS?ASSESSMENT ??Access?Type:?CVCatheter ??Access?SubType:?Tunneled ??Access?Status:?Active?(In?Use)?-?08/28/2023 ??Access?Location:?Chest ??Placed:?06/19/2023 Vascular?access?reviewed.?Current?access?is?permanent?and?functioning?well. ANEMIA?ASSESSMENT Comments:?On?IV?iron?and?TAVON?protocol.??Improving HGB,?TSAT ??09/28/2023:?9.7,?62.0 ??09/11/2023:?7.5,?- ??09/05/2023:?7.9,?- ?? Ferritin ??09/28/2023:?1532.0 ??08/29/2023:?515.0 Mircera,?IVP?(mcg) ??09/11/2023:?50 Iron?Sucrose?(Venofer)?(mg) ??10/05/2023:?100 ??10/03/2023:?100 ??09/14/2023:?100 BMM?ASSESSMENT Comments:?No?new?labs?to?review Phosphorus,?Calcium ??09/28/2023:?3.9,?8.5 ??08/29/2023:?5.7,?8.7 ?? PTH,?Intact ??09/28/2023:?44.0 ??08/29/2023:?42.0 NUTRITION?ASSESSMENT Comments:?No?new?labs?to?review:?reviewed?protein?intake in?diet Albumin,?Potassium ??09/28/2023:?3.0,?3.9 ??08/29/2023:?2.7,?5.5 ?? eNPCR ??09/03/2023:?0.49 PHYSICAL?EXAM Comments:?RBKA Exam?Not?Performed. DIAGNOSIS Chief?Complaint:?N18.6?End?stage?renal?disease Patient?data?updated?10/08/2023?at?1:11?PM Signed?By:?Bernie,?Madison,?ASSISTANT TODDLER TEACHER??on?10/08/2023?1:12:42 PM END OF DOCUMENT
--- OUTSIDE RECORDS SUMMARY | 2023-10-29 06:06 | XMS_ITS ---
Author Name Madison Gibbs Address [address] [place] [address] Phone [phone] Organization [facility] e, NA DOCUMENT DISCLAIMER Multiple document versions may exist, please be sure you review the latest version. The information in the [facility] Progress Note Document represents a providers documented clinical note containing certain health and medical information. It may not contain the complete medical history for the patient and should be independently verified. The represented time in the document is Eastern Time PROVIDER ROUNDING NOTE COMPREHENSIVE Patient:?Matthew?Denis,?1965,?58y,?M Dialysis?Location:[place] Attending?Juvenile Officer:?Heather?José Service?Date:?09/03/2023 Service?Provider:?Madison?Bernie,?TOWER ERECTOR I?met?face?to?face?with?the?patient?today. OVERVIEW The?patient?presented?with?ESRD?on?dialysis Primary?cause?of?renal?failure:?Type?2?diabetes?mellitus&#16 0;with?diabetic?chronic?kidney?disease Comments:?VSS,?seen?on?HD?machine.? Admitted?to[facility]05/2023?,?transferred?to?[facility]??07/27/23?? Medications?and?labs?reviewed. DIALYSIS?PRESCRIPTION ??IHD?3x?Week?Start?date:?08/31/23 ??Dialyzer:?180NRe?Optiflux ??BFR:?450 ??DFR:?Autoflow?1.5 ??Potassium:?2.0 ??Sodium:?138 ??EDW:?79 ??Duration:?3:30 ??Calcium:?2.5 ??Bicarb:?35 ??Rx?updated?on:?08/31/2023 TREATMENT?ASSESSMENT BP?Sit?Pre ??08/31/2023:?141/108 ??08/29/2023:?100/59 BP?Sit?Post ??08/31/2023:?110/61 ??08/29/2023:?144/89 Tx?Duration ??08/31/2023:?3:35 ??08/29/2023:?3:55 Missed?Treatments 0?-?last?30?days 0?-?last?60?days FLUID?ASSESSMENT EDW?(kg) ??08/31/2023:?74.0 ??08/29/2023:?74.0 Weight?Pre?(kg) ??08/31/2023:?79.0 ??08/29/2023:?79.2 Weight?Post?(kg) ??08/31/2023:?79.6 ??08/29/2023:?78.4 PWV?(kg) ??08/31/2023:?5.6 ??08/29/2023:?4.4 UF?Rate?(mL/kg/hr) ??08/31/2023:?-2.1 ??08/29/2023:?2.6 ADEQUACY?ASSESSMENT Comments:?Rechecking?clearance?today spKt/V,?URR ??08/29/2023:?1.31,?69.0 ACCESS?ASSESSMENT ??Access?Type:?CVCatheter ??Access?SubType:?Tunneled ??Access?Status:?Active?(In?Use)?-?08/28/2023 ??Access?Location:?Chest ??Placed:?06/19/2023 ANEMIA?ASSESSMENT HGB,?TSAT ??08/29/2023:?9.3,?10.0 ?? Ferritin ??08/29/2023:?515.0 Active?Orders:?Iron?Sucrose?(Venofer)?100?mg?3X?Week?During?Dialysis. BMM?ASSESSMENT Phosphorus,?Calcium ??08/29/2023:?5.7,?8.7 ?? PTH,?Intact ??08/29/2023:?42.0 NUTRITION?ASSESSMENT Albumin,?Potassium ??08/29/2023:?2.7,?5.5 PHYSICAL?EXAM Exam?Not?Performed. DIAGNOSIS Chief?Complaint:?N18.6?End?stage?renal?disease Patient?data?updated?09/03/2023?at?12:30?PM Signed?By:?Bernie,?Madison,?TOWER ERECTOR??on?10/08/2023?1:10:58 PM END OF DOCUMENT
[2023-10-29] MEDS: piperacillin-tazobactam 3.375 GM in sodium chloride 0.9% (plus) 50 ML IV ×3 (06:10→22:12)
[2023-10-29] MEDS: amiodarone 200 mg Tablet PO (06:27)
[2023-10-29] MEDS: pantoprazole DR 40 mg Tablet PO (06:27)
[2023-10-29] MEDS: docusate sodium 100 mg Capsule 200 MG PO (06:27)
[2023-10-29] MEDS: ondansetron 2 mg/ML SDV 2 mL 4 MG IVP (06:33)
[2023-10-29 06:36] LABS: Glucose Point of Care 357 mg/dL (70-110)
[2023-10-29 08:30] LABS: Partial Thromboplastin Time 182.2 SECONDS (23.9-36.7)
--- NOTE | 2023-10-29 08:32 | PC.NURSE ---
Addendum entered by May Loo RN 10/29/23 09:02: PTT is 182.2. Hep drip stopped and new PTT ordered STAT for confirmation, and next draw timed for 6H. notified. Original Note: PTT is 182.2. Hep drip stopped and new PTT draw timed for 6H. notified.
[2023-10-29] MEDS: b-complex-vitamin c Tablet 1 EACH PO (08:44)
[2023-10-29] MEDS: polyethylene glycol 3350 Pkt 17 gm PO ×2 (08:44→17:48)
[2023-10-29] MEDS: insulin lispro 100 unit/1 mL SUBCUT ×3 (08:44→22:09)
[2023-10-29] MEDS: calcium acetate 667 mg Capsule PO ×3 (08:44→17:49)
--- NOTE | 2023-10-29 09:21 | PM.CONSULT ---
Providers/Reason For Consult Consulting Physician/Specialty*: kommana/Nephrology Reason for Consult*: esrd Attending Physician: Mitzi Gonsalez MD Primary Care Provider: César Gallegos DO History of Present Illness History of Present Illness Matthew Barrios Jr is a 58 year old male Patient is a 58-year-old male with past medical history of coronary artery disease, COPD hypertension, dyslipidemia, atrial fibrillation, CHF peripheral vascular disease, end-stage renal disease on dialysis per Saturday schedule was admitted to the hospital last night due to hypoglycemia, possible pneumonia. His last dialysis was on Saturday. Lab data significant for hemoglobin of 10.6, elevated WBC count of 19,000, potassium is 3.7 and creatinine 3.3. Patient currently denies any complaints. Review of Systems Narrative: Other review of systems negative Medications/Allergies Home Medications Medication Instructions Recorded Confirmed Last Taken Type atorvastatin 80 mg tablet 80 mg PO BEDTIME@10/05/20 10/28/23 10/27/23 History aspirin 81 mg tablet,delayed 81 mg PO DAILY@05/06/23 10/28/23 10/28/23 History release umeclidinium 62.5 mcg/actuation 1 inh inhalation DAILY@05/06/23 10/28/23 10/28/23 History blister powder for inhalation (Incruse Ellipta) insulin glargine 100 unit/mL (3 20 unit SUBCUT BEDTIME@05/20/23 10/28/23 10/12/23 History mL) subcutaneous pen (Lantus Solostar U-100 Insulin) acetaminophen 325 mg tablet 650 mg PO QID PRN Pain 06/02/23 10/28/23 Unknown History bisacodyl 10 mg rectal suppository 10 mg WV DAILY PRN Constipation 06/02/23 10/28/23 Unknown History (Dulcolax (bisacodyl)) amiodarone 200 mg tablet 200 mg PO DAILY@09/16/23 10/28/23 10/28/23 History apixaban 2.5 mg tablet (Eliquis) 2.5 mg PO DAILY@09/16/23 10/28/23 10/28/23 History calcium acetate(phosphat bind) 667 667 mg PO TID 09/16/23 10/28/23 10/28/23 History mg capsule clopidogrel 75 mg tablet 75 mg PO DAILY@09/16/23 10/28/23 10/28/23 History collagenase clostridium histo. 250 See Rx Instructions .Route .COMPLEX 09/16/23 10/28/23 10/13/23 History unit/gram topical ointment (Santyl) docusate sodium 100 mg capsule 200 mg PO DAILY@09/16/23 10/28/23 10/28/23 History ipratropium 0.5 mg-albuterol 3 mg 3 ml inhalation Q6H PRN Wheezing 09/16/23 10/28/23 Unknown History (2.5 mg base)/3 mL nebulization soln melatonin 3 mg capsule 3 mg PO BEDTIME 09/16/23 10/28/23 10/27/23 History ondansetron 4 mg disintegrating 4 mg PO Q6H PRN Nausea 09/16/23 10/28/23 10/28/23 History tablet oxycodone 10 mg tablet 10 mg PO Q8H PRN Pain 09/16/23 10/28/23 10/28/23 07:34 History pantoprazole 40 mg tablet,delayed 40 mg PO DAILY@09/16/23 10/28/23 10/28/23 History release polyethylene glycol 3350 17 17 g PO BID 09/16/23 10/28/23 10/28/23 History gram/dose oral powder tamsulosin 0.4 mg capsule 0.8 mg PO BEDTIME 09/16/23 10/28/23 10/27/23 History albuterol sulfate 90 mcg/actuation 2 puff inhalation Q6H PRN Dyspnea 10/28/23 10/28/23 Unknown History aerosol inhaler calcium carbonate 200 mg calcium 500 mg PO BID PRN Heartburn 10/28/23 10/28/23 10/27/23 History (500 mg) chewable tablet collagenase clostridium histo. 250 See Rx Instructions .Route .COMPLEX 10/28/23 10/28/23 Unknown History unit/gram topical ointment (Santyl) insulin lispro 100 unit/mL 14 unit SUBCUT QAM 10/28/23 10/28/23 10/28/23 History subcutaneous pen insulin lispro 100 unit/mL See Rx Instructions .Route .COMPLEX 10/28/23 10/28/23 Unknown History subcutaneous pen vitamin B complex-vitamin C-folic 1 tab PO DAILY 10/28/23 10/28/23 10/28/23 History acid 0.8 mg tablet (Nephro-Candis) Allergies Allergy/AdvReac Type Severity Reaction Status Date / Time furosemide [From Lasix] Allergy Intermediate kidney Verified 10/28/23 11:12 complications [place]nut Allergy Unknown inknown Verified 10/28/23 11:12 morphine Allergy ADR-Halluci Verified 10/28/23 11:12 nating trazodone Allergy RASH Verified 10/28/23 11:12 Current Medications Generic Name Dose Route Start Last Admin Trade Name Freq PRN Reason Stop Dose Admin Acetaminophen 650 mg 10/28/23 16:35 10/28/23 19:56 Acetaminophen 325 Mg Tablet PO 650 mg QID PRN Administration Pain Amiodarone HCl 200 mg 10/29/23 07:00 10/29/23 06:27 Amiodarone 200 Mg Tablet PO 200 mg DAILY@07 KIM Administration Atorvastatin Calcium 40 mg 10/28/23 19:00 10/28/23 18:06 Atorvastatin 40 Mg Tablet PO Not Given BEDTIME@19 [facility] Calcium Acetate 667 mg 10/28/23 18:00 10/29/23 08:44 Calcium Acetate 667 Mg Capsule PO 667 mg TIDWM KIM Administration Dextrose 50 ml 10/28/23 16:35 10/28/23 21:01 Dextrose 50% Syringe 50 Ml IVP 50 ml PRN PRN Administration hypoglycemia protocol Protocol Docusate Sodium 200 mg 10/29/23 07:00 10/29/23 06:27 Docusate Sodium 100 Mg Capsule PO 200 mg DAILY@07 [facility] Administration Heparin Sodium (Porcine) 0 unit 10/28/23 22:53 10/29/23 01:43 Heparin 5,000 Unit/Ml Inj 1 Ml IV 3,300 unit PRN PRN Administration Heparin weight-base protocol Protocol Dextrose 500 mls @ 0 mls/hr 10/28/23 16:35 10/29/23 02:58 D5w IV Infused ONCE PRN Infusion Adult Acute Hypoglycemia Prot Protocol Per Protocol Piperacillin Sod/Tazobactam 50 mls @ 12.5 mls/hr 10/28/23 20:30 10/29/23 06:10 Sod 3.375 gm/ Sodium Chloride IV 12.5 mls/hr Q8H KIM Administration Heparin Sodium/Sodium Chloride 25,000 unit in 500 mls @ 0 mls/hr 10/28/23 23:00 10/29/23 01:46 Heparin Drip IV 14 unit/kg/hr .Q0M KIM 18.29 mls/hr Administration Protocol Per Protocol Insulin Glargine 5 unit 10/28/23 21:00 10/28/23 21:07 Insulin Glargine 100 Units/1 Ml SUBCUT Not Given BEDTIME KIM Insulin Human Lispro 0 unit 10/28/23 21:00 10/28/23 21:07 Insulin Lispro 100 Unit/1 Ml SUBCUT Not Given BEDTIME KIM Protocol Insulin Human Lispro 0 unit 10/28/23 18:00 10/29/23 08:44 Insulin Lispro 100 Unit/1 Ml SUBCUT 12 unit TIDWM KIM Administration Protocol Multivitamins 1 each 10/29/23 09:00 10/29/23 08:44 [id number] C Tablet PO 1 each DAILY KIM Administration Ondansetron HCl 4 mg 10/28/23 16:35 10/29/23 06:33 Ondansetron 2 Mg/Ml Sdv 2 Ml IVP 4 mg Q8H PRN Administration vomiting, or N/V if npo Oxycodone HCl 10 mg 10/28/23 19:56 10/29/23 08:43 Oxycodone 5 Mg Ir Tab/Cap PO 10 mg Q8H PRN Administration SEVERE PAIN Pantoprazole Sodium 40 mg 10/29/23 07:00 10/29/23 06:[address] 40 Mg Tablet PO 40 mg DAILY@07 KIM Administration Polyethylene Glycol 17 gm 10/28/23 18:00 10/29/23 08:44 Polyethylene Glycol 3350 Pkt 17 Gm PO 17 gm BID KIM Administration Tamsulosin HCl 0.8 mg 10/28/23 21:00 10/28/23 21:34 Tamsulosin 0.4 Mg Capsule PO 0.8 mg BEDTIME KIM Administration PFSH Acute PFSH: Medical History (Updated 10/29/23 @ 09:24 by Yolanda Klein MD) CAD (coronary artery disease) COPD (chronic obstructive pulmonary disease) Hyperlipidemia History of nicotine dependence Oropharyngeal dysphagia Prostatic hypertrophy Atrial fibrillation onset 06/12 when acutely ill, paroxysmal Congestive heart failure mild reduction in EF, combined systolic and diastolic dysfunction Klebsiella pneumonia MRSA pneumonia Septic shock diagnosis on DC summary from admission 09/2023 NSTEMI (non-ST elevated myocardial infarction) Diabetes type 1, uncontrolled Peripheral arterial disease Aortic stenosis Chronic kidney disease Hypertension Graves disease History of tonsillitis Surgical History (Updated 10/28/23 @ 15:35 by Yue Zhong MD) Presence of coronary angioplasty implant and graft History of colostomy during hospital stay at [facility] History of amputation below knee right BKA History of cholecystectomy History of knee surgery History of eye surgery History of tonsillectomy and adenoidectomy Family History Grandmother Dementia Social History (Updated 10/28/23 @ 15:35 by Yue Zhong MD) Smoking and tobacco/nicotine status: former use of tobacco/nicotine Alcohol intake: never Substance/Drug Use: never Housing: Alf Vitals/I&O/Wt Last Vital Signs Temp 98.0 F 10/29/23 07:57 Pulse 85 10/29/23 08:00 Resp 16 10/29/23 08:43 BP 130/72 10/29/23 07:57 Pulse Ox 95 10/29/23 08:43 O2 Del Method Nasal Cannula 10/29/23 08:00 O2 Flow Rate 3 10/29/23 08:00 10/28/23 10/29/23 10/29/23 22:59 06:59 14:59 Intake Total 690 / 690 550 / 1240 Balance 690 / 690 550 / 1240 Weight last 48 hrs Weight 68.13 kg Weight 65.317 kg Weight 65.317 kg Physical Exam Narrative: Awake alert no acute distress Data 10/29/23 04:05 10/29/23 04:05 Micro: Microbiology 10/28/23 14:40 Gram Stain - Final Buttock A&P Assessment and plan (1) ESRD (end stage renal disease) on dialysis: Plan 1. End-stage renal disease: On MWF schedule as outpatient-plan HD today, UF as tolerated 2. Anemia: Hemoglobin 9.5, ordered TAVON 3. Hypoglycemia: Improved 4. History of A-fib on chronic anticoagulation 5. Sacral decubitus ulcer Plan: Hemodialysis today, TAVON ordered Patient evaluated using audiovisual cart. Time spent 40 minutes. Consult Attestations Medical Necessity Statement: Per medicine team Coding Level of Care Code Acute Code for Chg Fwd Diagnoses ESRD (end stage renal disease) on dialysis N18.6; Z99.2
--- NOTE | 2023-10-29 09:23 | PC.CHAP ---
Pastoral Care Encounter/Spiritual Assessment Type of Contact [] Declined welfare case worker visit [] Patient/Family/Request visit [] Outpatient visit [] Follow-up visit [] Physician referral [] Code/Alert [] Routine visit [] Staff referral [] Actively dying [x] Patient sleeping [] Family support [] [] Out of room [] Palliative care [] [] Receiving care in room [] Pre-surgical visit [] Trauma [] Long length of stay [] ICU visit [] Other: Relational/Emotional Strength [] Patient feels connected with others/family/visitors/staff [] Distress [] Loneliness/isolation [] Abandonment Spirituality of Patient [] Person of Augustina [] Attends Mu-Ism of their Augustina [] Believes in Prayer [] Reads Bible or Oriental Orthodox materials [] There are Spiritual issues to be addressed Remediation Project Engineer Interventions [] Prayer [] Active listening [] Non-anxious presence [] Spiritual/emotional support [] Crisis/trauma care [] Spiritual counseling [] Bereavement support [] Provided bereavement packet [] Provided Bible/devotional materials [] Provided toy/stuffed animal, coloring book to patient or family member [] Provided Communion [] Anointing/[place] [] Salvation [] Completed spiritual assessment [] Other: Impact on Illness or Injury [] Angry [] Fearful [] Anxious [] Often cries [] Exhaustion [] Unable to work [] Unable to attend mosque [] Unable to walk/stand [] Unable to read [] Unable to drive [] Unable to eat/drink [] Unable to sleep [] Unable to be with family [] Patient intubated [] Other: Summary Time spent with patient
[2023-10-29 10:09] LABS: Partial Thromboplastin Time 73.9 SECONDS (23.9-36.7)
[2023-10-29] MEDS: epoetin alfa 1000 Unit/0.05 mL (non-esrd) 20000 UNIT IVP (10:10)
[2023-10-29] MEDS: heparin, porcine 1,000 unit/mL INJ 10 mL 10000 UNIT INTRACATH ×3 (10:10→10:12)
[2023-10-29] MEDS: heparin, porcine 1,000 unit/mL INJ 10 mL 1000 UNIT IV (10:13)
--- NOTE | 2023-10-29 11:18 | P.PN_ITS ---
Subjective 2 Subjective: Overnight events noted Will discontinue heparin drip patient has had high troponin at baseline No active chest pain Had stress test done recently Patient is not complaining active chest pain Awake and alert I will advance her diet Patient elevation in due for dialysis Blood sugar is above 200 discontinue D10 Vitals/I&O/Wt Last Vital Signs Temp 98.0 F 10/29/23 07:57 Pulse 85 10/29/23 08:00 Resp 16 10/29/23 08:43 BP 130/72 10/29/23 07:57 Pulse Ox 95 10/29/23 08:43 O2 Del Method Nasal Cannula 10/29/23 08:00 O2 Flow Rate 3 10/29/23 08:00 10/28/23 10/29/23 10/29/23 22:59 06:59 14:59 Intake Total 690 / 690 550 / 1240 50 / 50 Balance 690 / 690 550 / 1240 50 / 50 Weight last 48 hrs Weight 68.13 kg Weight 65.317 kg Weight 65.317 kg Physical Exam 2 Narrative: Awake and alert Large sacral ulcer no active infection Bedbound Ileostomy bag in place Awake and alert Currently on 2 L At baseline uses 2 GCS 15 S1, S2 No active chest pain Data 10/29/23 04:05 10/29/23 04:05 Micro: Microbiology 10/28/23 14:40 Gram Stain - Final Buttock A&P Assessment and plan (1) senior care (current) use of opiate analgesic: (2) Hypertension: Qualifiers: Hypertension type: primary hypertension Qualified Code(s): I10 - Essential (primary) hypertension (3) Aortic stenosis: (4) Peripheral arterial disease: (5) Atrial fibrillation: (6) Chronic anticoagulation: (7) Diabetes type 1, uncontrolled: (8) Diabetic foot ulcer: (9) Hypoglycemia: (10) Diabetic ulcer of heel: (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: (12) Oropharyngeal dysphagia: (13) Presence of colostomy: (14) Hemodialysis patient: Plan Uncontrolled insulin-dependent diabetes Discontinue D10 Start low-dose intensity scale of insulin Will reduce the dose of long-acting insulin at the time of discharge Aspiration pneumonia Oropharyngeal dysphagia awaiting speech therapy, patient is not interested in tube feedings, I will start him on pur?ed diet for now Non-STEMI: Patient has baseline troponin high, no active chest pain, had stress test done few months ago, will discontinue heparin drip, his echo was also done recently when he is high troponins were noted few months ago Full code Sacral ulcer Follows up with wound care clinic Patient is from [facility] Patient has a colostomy bag No acute exacerbation Dialysis dependent Saturday Dialysis pending today Attestations 2 Medical Necessity Statement*: Continue medical management Diagnoses senior care (current) use of opiate analgesic Z79.891 Primary hypertension I10 Hypertension type: primary hypertension Aortic stenosis I35.0 Peripheral arterial disease I73.9 Atrial fibrillation I48.91 Chronic anticoagulation Z79.01 Diabetes type 1, uncontrolled Diabetic foot ulcer E11.621; L97.509 Hypoglycemia E16.2 Diabetic ulcer of heel E11.621; L97.409 senior care current use of insulin Z79.4 Oropharyngeal dysphagia R13.12 Presence of colostomy Z93.3 Hemodialysis patient Z99.2
[2023-10-29 11:51] LABS: Glucose Point of Care 78 mg/dL (70-110)
[2023-10-29] MEDS: albumin 12.5 GM/50 ML VIAL IV (12:27)
[2023-10-29 14:01] LABS: Partial Thromboplastin Time 111.1 SECONDS (23.9-36.7)
[2023-10-29 14:15] LABS: Glucose Point of Care 28 mg/dL (70-110)
--- NOTE | 2023-10-29 14:19 | PC.NURSE ---
Pt blood sugar drops to 28. Amp of D50 given. Notified Dr. Gonsalez. Orders to start D10 back at 100ml/hr given.
[2023-10-29 14:59] LABS: Glucose Point of Care 198 mg/dL (70-110)
[2023-10-29 16:28] LABS: Glucose Point of Care 243 mg/dL (70-110)
--- NOTE | 2023-10-29 17:13 | PC.SLP ---
The pt indicated nausea, and did not want to partifcipate in ASSOCIATE PUBLISHER eval earlier. ASSOCIATE PUBLISHER will attempt to follow-up tomorrow.
[2023-10-29] MEDS: atorvastatin 40 mg Tablet PO (17:48)
[2023-10-29] MEDS: tamsulosin 0.4 mg Capsule 0.8 MG PO (20:27)
[2023-10-29] MEDS: apixaban 5 mg Tablet 2.5 MG PO (20:28)
[2023-10-29 21:08] LABS: Glucose Point of Care 173 mg/dL (70-110)
--- NOTE | 2023-10-29 23:00 | USCV_ITS ---
Barrios, Matthew Age: 58 Gender: M : 1965 Exam Date: 10/29/2023 04:22 Ordering Phys: Anisa Chiu MD Technologist: ANTHONY Exam Location: [facility] [place] Indication: NSTEMI BP: 108 / 60 HR: 79 Rhythm: Sinus Technical Quality: Adequate MEASUREMENTS (Male / Female) Normal Values 2D ECHO LV Diastolic Diameter PLAX 4.2 cm 4.2 - 5.9 / 3.9 - 5.3 cm LV Systolic Diameter PLAX 2.8 cm IVS Diastolic Thickness 1.0 cm 0.6 - 1.0 / 0.6 - 0.9 cm IVS Systolic Thickness 1.3 cm LVPW Diastolic Thickness 1.2 cm 0.6 - 1.0 / 0.6 - 0.9 cm LVPW Systolic Thickness 1.4 cm LVOT Diameter 1.9 cm LV Ejection Fraction 2D Teich 63.3 % LV Ejection Fraction MOD 2C 55.7 % LV Ejection Fraction 2C AL 55.4 % LA Diameter 4.2 cm LA Width 4.9 cm LA Height 5.5 cm RA Width 1.9 cm RA Height 4.0 cm Aorta at Sinotubular Diameter 2.9 cm IVC Diameter 1.2 cm M-MODE Aortic Annulus Diameter 3.3 cm LA Ao Ratio MM 1.5 MV E Point Septal Separation 1.1 cm DOPPLER AV Peak Velocity 272.0 cm/s LVOT Peak Velocity 87.0 cm/s AV Area Cont Eq vti 1.1 cm squared AV Area Cont Eq pk 0.9 cm squared MV Peak Velocity 119.0 cm/s MV Area PHT 2.8 cm squared Mitral E to A Ratio 0.8 MV E' Velocity 46.5 cm/s Mitral E to MV E' Ratio 11.1 Mitral E to LV E' Lateral Ratio 11.2 Mitral E to LV E' Septal Ratio 11.1 TV Peak E Velocity 48.0 cm/s PV Peak Velocity 99.0 cm/s RV Acceleration Time 0.1 s RV Ejection Time 0.3 s RV AcT/ET 0.4 FINDINGS Left Ventricle Normal left ventricular size and systolic function, EF 58 %. Moderate left ventricular hypertrophy. Grade I/IV diastolic dysfunction (abnormal relaxation filling pattern), normal to mildly elevated filling pressures. Right Ventricle The right ventricle is normal in size and function. Right Atrium The right atrium is normal in size. Left Atrium Mildly increased left atrial size. Mitral Valve Thickened mitral valve. Mild mitral annular calcification. Aortic Valve Moderate aortic valve stenosis, mean gradient 14.1 mmHg, LYUDMILA 1.1 cm squared. Peak velocity of 2.76 m/s with a peak gradient of 31 mmHg Tricuspid Valve Trace tricuspid valve regurgitation. Pulmonic Valve Mild pulmonary valve regurgitation. Pericardium Normal pericardium without effusion. Aorta Normal aortic annulus size. IVC Normal inferior vena cava. CONCLUSIONS Normal left ventricular size and systolic function, EF 58 %. Moderate left ventricular hypertrophy. Grade I/IV diastolic dysfunction (abnormal relaxation filling pattern), normal to mildly elevated filling pressures. Mildly increased left atrial size. Thickened mitral valve. Mild mitral annular calcification. Moderate aortic valve stenosis, mean gradient 14.1 mmHg, LYUDMILA 1.1 cm squared. Peak velocity of 2.76 m/s with a peak gradient of 31 mmHg. Trace tricuspid valve regurgitation. Mild pulmonary valve regurgitation. There is no pericardial effusion. There are no intracardiac masses. Compared to the study from 08/19/2020, there is some worsening of the aortic valve stenosis Dr James Woodall MD [facility] (Electronically Signed) Final Date: 29 October 2023 14:03 S
[2023-10-30] VITALS (12 sets, daily range): BP systolic 93–149; BP diastolic 51–70; PULSE 77–104; RESP 16–20; TEMP 36.3–37.1; O2SAT 92–100
[2023-10-30] MEDS: acetaminophen 325 mg Tablet 650 MG PO (00:09)
[2023-10-30] MEDS: oxyCODONE 5 mg IR Tab/Cap 10 MG PO ×5 (01:31→21:05)
[2023-10-30 02:14] LABS: Glucose Point of Care 204 mg/dL (70-110)
[2023-10-30] MEDS: dextrose 10% 1,000 ML 100 ML IV (03:32)
[2023-10-30 04:19] LABS: Basophils # 0.1 10^3/uL (0.0-0.1); Basophils % 0.6 %; Eosinophils # 0.1 10^3/uL (0.0-0.8); Hematocrit 30.1 % (37-53); Lymphocytes # 1.2 10^3/uL (0.8-4.8); Lymphocytes % 12.7 %; Mean Corpuscular HGB Conc 30.2 g/dL (30-55); Mean Corpuscular Hemoglobin 29.7 pg (27-33); Mean Corpuscular Volume 98.4 fl (82-101); Mean Platelet Volume 9.2 fL (7.4-10.4); Monocytes # 1.2 10^3/uL (0.2-0.9); Monocytes % 12.4 %; Neutrophils # 6.88 10^3/uL (1.8-7.7); Neutrophils % 72.8 %; Nucleated Red Blood Cells % 0 %; Platelet Count 310 10^3/cmm (157-399); Red Blood Count 3.06 10^6/uL (3.85-5.65); Red Cell Distribution Width 18.8 % (12.1-15.1); White Blood Count 9.45 10^3/uL (3.29-11.43)
[2023-10-30 04:42] LABS: Anion Gap 11.2 (5-19); Blood Urea Nitrogen 15 mg/dL (6-20); Calcium 8.7 mg/dL (8.5-10.5); Carbon Dioxide 27 mmol/L (22-29); Chloride 94 mmol/L (98-107); Glomerular Filtration Rate 32.8 mL/min (90-130); Glucose 284 mg/dL (65-115); Osmolality Calculated 277 mOsm/kg (285-295); Potassium 4.2 mmol/L (3.5-5.1); Sodium 128 mmol/L (136-145)
[2023-10-30] MEDS: piperacillin-tazobactam 3.375 GM in sodium chloride 0.9% (plus) 50 ML IV (05:42)
[2023-10-30] MEDS: aspirin 81 mg EC Tablet PO (06:07)
[2023-10-30] MEDS: docusate sodium 100 mg Capsule 200 MG PO (06:07)
[2023-10-30] MEDS: amiodarone 200 mg Tablet PO (06:07)
[2023-10-30] MEDS: pantoprazole DR 40 mg Tablet PO (06:07)
[2023-10-30 06:45] LABS: Glucose Point of Care 412 mg/dL (70-110)
[2023-10-30] MEDS: calcium acetate 667 mg Capsule PO ×2 (08:39→12:49)
[2023-10-30] MEDS: b-complex-vitamin c Tablet 1 EACH PO (08:39)
[2023-10-30] MEDS: insulin lispro 100 unit/1 mL SUBCUT (08:40)
[2023-10-30] MEDS: apixaban 5 mg Tablet 2.5 MG PO ×2 (08:44→20:59)
[2023-10-30] MEDS: collagenase oint 30 gm 1 APPLIC TOPICAL (08:45)
--- NOTE | 2023-10-30 10:29 | PC.CHAP ---
Pastoral Care Encounter/Spiritual Assessment Type of Contact [] Declined beef farmer visit [] Patient/Family/Request visit [] Outpatient visit [] Follow-up visit [] Physician referral [] Code/Alert [X] Routine visit [] Staff referral [] Actively dying [] Patient sleeping [] Family support [] [] Out of room [] Palliative care [] [] Receiving care in room [] Pre-surgical visit [] Trauma [] Long length of stay [] ICU visit [] Other: Relational/Emotional Strength [] Patient feels connected with others/family/visitors/staff [] Distress [] Loneliness/isolation [] Abandonment Spirituality of Patient [] Person of Augustina [] Attends Denominational of their [place] [] Believes in Prayer [] Reads Bible or Lutheran materials [] There are Spiritual issues to be addressed Network And Threat Support Specialist Interventions [X] Prayer [X] Active listening [] Non-anxious presence [] Spiritual/emotional support [] Crisis/trauma care [] Spiritual counseling [] Bereavement support [] Provided bereavement packet [] Provided Bible/devotional materials [] Provided toy/stuffed animal, coloring book to patient or family member [] Provided Communion [] Anointing/[place] [] Salvation [] Completed spiritual assessment [] Other: Impact on Illness or Injury [] Angry [] Fearful [] Anxious [] Often cries [] Exhaustion [] Unable to work [] Unable to attend uatsdin [] Unable to walk/stand [] Unable to read [] Unable to drive [] Unable to eat/drink [] Unable to sleep [] Unable to be with family [] Patient intubated [] Other: Summary Time spent with patient 10 MIN
[2023-10-30 10:54] LABS: Glucose Point of Care 450 mg/dL (70-110)
--- NOTE | 2023-10-30 11:07 | P.PN_ITS ---
Subjective 2 Subjective: s/p hD yesterday Medications: Reviewed: Yes Vitals/I&O/Wt Last Vital Signs Temp 97.4 F L 10/30/23 08:00 Pulse 86 10/30/23 08:11 Resp 16 10/30/23 08:11 BP 149/61 10/30/23 08:00 Pulse Ox 94 10/30/23 08:11 O2 Del Method Nasal Cannula 10/30/23 08:11 O2 Flow Rate 3 10/30/23 08:11 10/29/23 10/30/23 10/30/23 22:59 06:59 14:59 Intake Total 220 / 270 1050 / 1320 696.667 / 696.667 Balance 220 / 270 1050 / 1320 696.667 / 696.667 Weight last 48 hrs Weight 69.264 kg Weight 68.13 kg Weight 65.317 kg Physical Exam 2 Narrative: Awake alert no acute distress Data 10/30/23 03:30 10/30/23 03:30 Micro: Microbiology 10/28/23 12:40 Blood Culture - Preliminary Blood 10/28/23 14:40 Gram Stain - Final Buttock A&P Assessment and plan (1) ESRD (end stage renal disease) on dialysis: Plan 1. End-stage renal disease: On MWF schedule as outpatient-HD done yesterday 2. Anemia: Hemoglobin 9.5, ordered TAVON 3. Hypoglycemia: 4. History of A-fib on chronic anticoagulation 5. Sacral decubitus ulcer Plan: Hemodialysis tomorrow , TAVON ordered Patient evaluated using audiovisual cart. Time spent 20 minutes. Attestations 2 Medical Necessity Statement*: per medicine team Coding Level of Care Code Acute Code for Chg Fwd Diagnoses ESRD (end stage renal disease) on dialysis N18.6; Z99.2
--- NOTE | 2023-10-30 11:35 | P.PN_ITS ---
Subjective 2 Subjective: Patient's p.o. intake has been very poor Discontinue D10 today which was restarted last evening for hypoglycemia She he is getting Lantus 5 units which is reduced amount from his previous dose Vitals/I&O/Wt Last Vital Signs Temp 97.4 F L 10/30/23 08:00 Pulse 86 10/30/23 08:11 Resp 16 10/30/23 08:11 BP 149/61 10/30/23 08:00 Pulse Ox 94 10/30/23 08:11 O2 Del Method Nasal Cannula 10/30/23 08:11 O2 Flow Rate 3 10/30/23 08:11 10/29/23 10/30/23 10/30/23 22:59 06:59 14:59 Intake Total 220 / 270 1050 / 1320 696.667 / 696.667 Balance 220 / 270 1050 / 1320 696.667 / 696.667 Weight last 48 hrs Weight 69.264 kg Weight 68.13 kg Weight 65.317 kg Physical Exam 2 Narrative: Awake alert GCS 15 Sacral ulcer No active signs of infection Patient was asking for knee brace No active complaints Colostomy bag in place S1, S2 Data 10/30/23 03:30 10/30/23 03:30 Micro: Microbiology 10/28/23 12:40 Blood Culture - Preliminary Blood 10/28/23 14:40 Gram Stain - Final Buttock A&P Assessment and plan (1) long-term (current) use of opiate analgesic: (2) Hypertension: Qualifiers: Hypertension type: primary hypertension Qualified Code(s): I10 - Essential (primary) hypertension (3) Aortic stenosis: (4) Atrial fibrillation: (5) Peripheral arterial disease: (6) Chronic anticoagulation: (7) Diabetes type 1, uncontrolled: (8) Diabetic foot ulcer: (9) Hypoglycemia: (10) Graves disease: (11) COPD (chronic obstructive pulmonary disease): Plan Patient had another hypoglycemic episode yesterday with poor p.o. intake after getting short acting insulin He is getting 5 units of Lantus along sliding scale His hemoglobin A1c is 5 Hold D10 blood sugar is above 200 He may benefit from only long-acting insulin which has less side effect of hypoglycemia as compared to short acting insulin Answer renal disease dialysis as per nephro Will like to watch her 1 more day Will ask for knee brace, left a message to the nurse Full code Patient is still at risk of aspiration and he is not willing to go for any tube feeding, currently on dysphagia level 4 diet for aspiration pneumonia Attestations 2 Medical Necessity Statement*: Discharge tomorrow if stable 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
--- NOTE | 2023-10-30 11:55 | PC.SOCIAL ---
Pg 2 IMM Explained to pt Pg 2 IMM. No questions voiced. Provided pt a copy. Initialed, dated, & timed a copy & placed in chart.
[2023-10-30 14:13] LABS: Glucose Point of Care 332 mg/dL (70-110)
--- NOTE | 2023-10-30 14:58 | PM.CONSULT ---
Providers/Reason For Consult Consulting Physician/Specialty*: Ncikie Kam, INSTRUCTIONAL SYSTEMS DESIGN CONSULTANT-BC/Wound Care Reason for Consult*: Wound evaluation and management Requesting Physician: Dr. Zhong Attending Physician: Mitzi Gonsalez MD Primary Care Provider: César Gallegos DO History of Present Illness History of Present Illness Matthew Barrios Jr is a 58 year old male who presents today with wounds to sacrum and gluteal folds bilaterally. There are also nonwounds to the Left foot. He was admitted on 10/28/23 for hypoglycemia. He is a current resident of [facility]. Mr. Barrios has multiple comorbidities which include end stage renal disease. He is a hemodialysis patient on Saturday, , Saturday. 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 He is a right leg amputee and previously seen at [facility]. Assessment today reveals stable nonwounds to the left foot that include a stable eschar cap to the left heel with a small eschar cap to the medial first metatarsal head and a stable eschar cap to the third distal toe. There is a large stage 3 pressure ulcer to the sacrum that has surfaced quite a bit. I no longer appreciate bone involvement to the sacral ulcer which is improvement with soft tissue coverage. There is slough to the wound bed and a slight odor. He is having a moderate amount of serous drainage from the sacral ulcer. In addition there are gluteal fold wounds bilateral that are stage 3 pressure ulcers. There are two wounds to the right gluteal fold with one being medial and the other more lateral. There is one left gluteal fold wound. These wounds have adherent slough to the wound bed as well. I recommend applying betadine to all nonwounds of the left foot and cover with comfort foam. I recommend applying Santyl Ointment 250g/u to the wound beds of the medial and lateral right gluteal fold wounds, the left gluteal fold wound and the sacral wound with a wet to dry BID with saline. Dressings should be changed PRN if saturated or soiled. Offloading will be of the utmost importance to Mr. Barrios's healing. I recommend turning every two hours to offload the wounds. He may shower with no wound dressings. I will follow Mr. Barrios while inpatient. I do recommend that he follows up with wound care at time of discharge. I appreciate the opportunity to consult with Mr. Barrios. Please call with any questions or concerns. Review of Systems Narrative: Other review of systems negative Medications/Allergies Home Medications Medication Instructions Recorded Confirmed Last Taken Type atorvastatin 80 mg tablet 80 mg PO BEDTIME@10/05/20 10/28/23 10/27/23 History aspirin 81 mg tablet,delayed 81 mg PO DAILY@05/06/23 10/28/23 10/28/23 History release umeclidinium 62.5 mcg/actuation 1 inh inhalation DAILY@05/06/23 10/28/23 10/28/23 History blister powder for inhalation (Incruse Ellipta) insulin glargine 100 unit/mL (3 20 unit SUBCUT BEDTIME@05/20/23 10/28/23 10/12/23 History mL) subcutaneous pen (Lantus Solostar U-100 Insulin) acetaminophen 325 mg tablet 650 mg PO QID PRN Pain 06/02/23 10/28/23 Unknown History bisacodyl 10 mg rectal suppository 10 mg SC DAILY PRN Constipation 06/02/23 10/28/23 Unknown History (Dulcolax (bisacodyl)) amiodarone 200 mg tablet 200 mg PO DAILY@09/16/23 10/28/23 10/28/23 History apixaban 2.5 mg tablet (Eliquis) 2.5 mg PO DAILY@09/16/23 10/28/23 10/28/23 History calcium acetate(phosphat bind) 667 667 mg PO TID 09/16/23 10/28/23 10/28/23 History mg capsule clopidogrel 75 mg tablet 75 mg PO DAILY@09/16/23 10/28/23 10/28/23 History collagenase clostridium histo. 250 See Rx Instructions .Route .COMPLEX 09/16/23 10/28/23 10/13/23 History unit/gram topical ointment (Santyl) docusate sodium 100 mg capsule 200 mg PO DAILY@09/16/23 10/28/23 10/28/23 History ipratropium 0.5 mg-albuterol 3 mg 3 ml inhalation Q6H PRN Wheezing 09/16/23 10/28/23 Unknown History (2.5 mg base)/3 mL nebulization soln melatonin 3 mg capsule 3 mg PO BEDTIME 09/16/23 10/28/23 10/27/23 History ondansetron 4 mg disintegrating 4 mg PO Q6H PRN Nausea 09/16/23 10/28/23 10/28/23 History tablet oxycodone 10 mg tablet 10 mg PO Q8H PRN Pain 09/16/23 10/28/23 10/28/23 07:34 History pantoprazole 40 mg tablet,delayed 40 mg PO DAILY@07 09/16/23 10/28/23 10/28/23 History release polyethylene glycol 3350 17 17 g PO BID 09/16/23 10/28/23 10/28/23 History gram/dose oral powder tamsulosin 0.4 mg capsule 0.8 mg PO BEDTIME 09/16/23 10/28/23 10/27/23 History albuterol sulfate 90 mcg/actuation 2 puff inhalation Q6H PRN Dyspnea 10/28/23 10/28/23 Unknown History aerosol inhaler calcium carbonate 200 mg calcium 500 mg PO BID PRN Heartburn 10/28/23 10/28/23 10/27/23 History (500 mg) chewable tablet collagenase clostridium histo. 250 See Rx Instructions .Route .COMPLEX 10/28/23 10/28/23 Unknown History unit/gram topical ointment (Santyl) insulin lispro 100 unit/mL 14 unit SUBCUT QAM 10/28/23 10/28/23 10/28/23 History subcutaneous pen insulin lispro 100 unit/mL See Rx Instructions .Route .COMPLEX 10/28/23 10/28/23 Unknown History subcutaneous pen vitamin B complex-vitamin C-folic 1 tab PO DAILY 10/28/23 10/28/23 10/28/23 History acid 0.8 mg tablet (Nephro-Candis) Allergies Allergy/AdvReac Type Severity Reaction Status Date / Time furosemide [From Lasix] Allergy Intermediate kidney Verified 10/28/23 11:12 complications walnut Allergy Unknown inknown Verified 10/28/23 11:12 morphine Allergy ADR-Halluci Verified 10/28/23 11:12 nating trazodone Allergy RASH Verified 10/28/23 11:12 Current Medications Generic Name Dose Route Start Last Admin Trade Name Freq PRN Reason Stop Dose Admin Acetaminophen 650 mg 10/28/23 16:35 10/30/23 00:09 Acetaminophen 325 Mg Tablet PO 650 mg QID PRN Administration Pain Amiodarone HCl 200 mg 10/29/23 07:00 10/30/23 06:07 Amiodarone 200 Mg Tablet PO 200 mg DAILY@07 KIM Administration Apixaban 2.5 mg 10/29/23 21:00 10/30/23 08:44 Apixaban 5 Mg Tablet PO 2.5 mg BID@0900,2100 [facility] Administration Aspirin 81 mg 10/29/23 07:00 10/30/23 06:07 Aspirin 81 Mg Ec Tablet PO 81 mg DAILY@07 KIM Administration Atorvastatin Calcium 40 mg 10/28/23 19:00 10/29/23 17:48 Atorvastatin 40 Mg Tablet PO 40 mg BEDTIME@19 KIM Administration Calcium Acetate 667 mg 10/28/23 18:00 10/30/23 12:49 Calcium Acetate 667 Mg Capsule PO 667 mg TIDWM KIM Administration Collagenase 1 applic 10/30/23 09:00 10/30/23 08:45 Collagenase Oint 30 Gm TOPICAL 1 applic BID KIM Administration Dextrose 50 ml 10/28/23 16:35 10/28/23 21:01 Dextrose 50% Syringe 50 Ml IVP 50 ml PRN PRN Administration hypoglycemia protocol Protocol Docusate Sodium 200 mg 10/29/23 07:00 10/30/23 06:07 Docusate Sodium 100 Mg Capsule PO 200 mg DAILY@07 KIM Administration Dextrose 500 mls @ 0 mls/hr 10/28/23 16:35 10/29/23 02:58 D5w IV Infused ONCE PRN Infusion Adult Acute Hypoglycemia Prot Protocol Per Protocol Albumin Human 12.5 gm in 50 mls @ 60 mls/hr 10/29/23 05:11 10/29/23 15:10 Albumin IV Infused PRN PRN Infusion Hypotension and/or symptomatic Dextrose 1,000 mls @ 100 mls/hr 10/29/23 14:00 10/30/23 10:00 D10w IV 0 mls/hr .Q10H KIM Infusion Insulin Glargine 5 unit 10/28/23 21:00 10/29/23 22:09 Insulin Glargine 100 Units/1 Ml SUBCUT Not Given BEDTIME [facility] Multivitamins 1 each 10/29/23 09:00 10/30/23 08:39 T-Wujpyhc-Cnsdyvy C Tablet PO 1 each DAILY KIM Administration Ondansetron HCl 4 mg 10/28/23 16:35 10/29/23 06:33 Ondansetron 2 Mg/Ml Sdv 2 Ml IVP 4 mg Q8H PRN Administration vomiting, or N/V if npo Oxycodone HCl 10 mg 10/29/23 16:12 10/30/23 12:49 Oxycodone 5 Mg Ir Tab/Cap PO 10 mg Q4H PRN Administration SEVERE PAIN Pantoprazole Sodium 40 mg 10/29/23 07:00 10/30/23 06:[address] 40 Mg Tablet PO 40 mg DAILY@07 KIM Administration Polyethylene Glycol 17 gm 10/28/23 18:00 10/30/23 08:43 Polyethylene Glycol 3350 Pkt 17 Gm PO Not Given BID KIM Tamsulosin HCl 0.8 mg 10/28/23 21:00 10/29/23 20:27 Tamsulosin 0.4 Mg Capsule PO 0.8 mg BEDTIME KIM Administration PFSH Acute PFSH: Medical History CAD (coronary artery disease) COPD (chronic obstructive pulmonary disease) Hyperlipidemia History of nicotine dependence Oropharyngeal dysphagia Prostatic hypertrophy Atrial fibrillation onset 06/12 when acutely ill, paroxysmal Congestive heart failure mild reduction in EF, combined systolic and diastolic dysfunction Klebsiella pneumonia MRSA pneumonia Septic shock diagnosis on DC summary from admission 09/2023 NSTEMI (non-ST elevated myocardial infarction) Diabetes type 1, uncontrolled Peripheral arterial disease Aortic stenosis Chronic kidney disease Hypertension Graves disease History of tonsillitis Surgical History Presence of coronary angioplasty implant and graft History of colostomy during hospital stay at [facility] History of amputation below knee right BKA History of cholecystectomy History of knee surgery History of eye surgery History of tonsillectomy and adenoidectomy Family History Grandmother Dementia Social History Smoking and tobacco/nicotine status: former use of tobacco/nicotine Alcohol intake: never Substance/Drug Use: never Housing: Shelter Vitals/I&O/Wt Last Vital Signs Temp 97.6 F 10/30/23 12:00 Pulse 77 10/30/23 12:00 Resp 18 10/30/23 12:00 BP 134/68 10/30/23 12:00 Pulse Ox 97 10/30/23 12:00 O2 Del Method Nasal Cannula 10/30/23 08:11 O2 Flow Rate 3 10/30/23 08:11 10/29/23 10/30/23 10/30/23 22:59 06:59 14:59 Intake Total 220 / 270 1050 / 1320 816.667 / 816.667 Balance 220 / 270 1050 / 1320 816.667 / 816.667 Weight last 48 hrs Weight 69.264 kg Weight 68.13 kg Weight 65.317 kg Physical Exam Narrative: Awake alert GCS 15 Sacral ulcer, gluteal fold wounds and left foot wounds. No active signs of infection Patient was asking for knee brace No active complaints Colostomy bag in place S1, S2 Skin: WOUNDS: Yes wounds noted (please see problems: assessment and plans for measurements and details) Data 10/30/23 03:30 10/30/23 03:30 Micro: Microbiology 10/28/23 12:40 Blood Culture - Preliminary Blood A&P Assessment and plan (1) Pressure ulcer of sacral region, stage 3: Sacral wound: [id number] with undermining from 10 to 12 o'clock with a max of 1cm. Adherent slough to the wound bed, down to the adipose layer. Twice Daily dressing changes: Santyl Ointment 250g/u to be applied 2mm or nickel thick to wound bed with wet to dry dressing changes BID with gauze and saline. Cover with comfort foam. (2) Pressure ulcer of left buttock, stage 3: Wound to left gluteal fold: [id number] Purulent drainage, adherent slough to the wound bed. Malodorous. Twice Daily dressing changes: Santyl Ointment 250g/u to be applied 2mm or nickel thick to wound bed with wet to dry dressing changes BID with gauze and saline. Cover with comfort foam. (3) Pressure ulcer of right buttock, stage 3: Lateral wound of right gluteal fold: 3x1.4x0.1cm, limited to breakdown of skin with adherent slough to the wound bed. Medial wound of the right gluteal fold: 3.8x1.8x1.8cm with undermining from 3 to 8 o'clock with a max of 1.8cm. Down to the adipose layer with adherent slough to the wound bed. Twice Daily dressing changes: Santyl Ointment 250g/u to be applied 2mm or nickel thick to wound bed with wet to dry dressing changes BID with gauze and saline. Cover with comfort foam. (4) Diabetic ulcer of left foot: Non wound conditions of the left foot include: Left heel: 7.3x5.5x0cm stable eschar cap Left medial first metatarsal head: 1x0.5x0cm stable eschar cap Left third toe:[id number] stable eschar cap Daily dressing changes: Betadine swab and cover with comfort foam. Qualifiers: Diabetes mellitus type: due to underlying condition Diabetic foot ulcer location: heel Non-pressure ulcer stage: unspecified non-pressure ulcer stage Qualified Code(s): E08.621 - Diabetes mellitus due to underlying condition with foot ulcer; L97.429 - Non-pressure chronic ulcer of left heel and midfoot with unspecified severity and Moderate Time for a total of 45 minutes, includes reviewing past or interval history, examining/interviewing patient, placing orders, counseling patient/family/other support, updating patient/family/other support, discussing plan of care with staff, communicating with other healthcare providers, documenting encounter and coordinating care Other Coding Information Focused coding review requested Diagnoses Pressure ulcer of sacral region, stage 3 L89.153 Pressure ulcer of left buttock, stage 3 L89.323 Pressure ulcer of right buttock, stage 3 L89.313 Diabetic ulcer of left heel associated with diabetes mellitus due to underlying condition, unspecified ulcer stage E08.621; L97.429 Diabetes mellitus type: due to underlying condition Diabetic foot ulcer location: heel Non-pressure ulcer stage: unspecified non-pressure ulcer stage Wound Orders Wound Number 1: Stage 3 pressure ulcer of Sacrum: Adherent slough to the wound bed. No longer appreciate bone exposure. Does Wound require Debridement?: No Duration: Other (while inpatient) Dressing change frequency: Twice Daily and Other (PRN if soiled or saturated. ) Wound Cleansing: Saline Topical Orders: Santyl Ointment (applied to the wound bed 2mm or nickel thick. ) Primary Wound Care Dressing: Apply Santyl to wound bed first, then apply wet to dry with gauze and saline. Secondary Wound Care Dressing: ABD and metapore tape. Bathing/Showering/Hygiene: May shower without wound dressing Off-Loading: Low air-loss mattress and Turn and reposition every 2 hours Wound Number 2: Stage 3 Pressure ulcer of left gluteal fold , purulent drainage, malodorous with adherent slough to the wound bed. Does Wound require Debridement?: No Duration: Other (while inpatient. ) Dressing change frequency: Twice Daily and Other (PRN if soiled or saturated. ) Wound Cleansing: Saline Topical Orders: Santyl Ointment (Apply to the wound bed 2mm or nickel thick ) Primary Wound Care Dressing: Apply Santyl to wound bed first, then apply wet to dry with gauze and saline. Secondary Wound Care Dressing: ABD and metapore tape. Wound Number 3: Stage 3 pressure ulcer to Right lateral gluteal fold with adherent slough to the wound bed. Does Wound require Debridement?: No Duration: Other (while inpatient) Dressing change frequency: Daily and Other (PRN if soiled or saturated. ) Wound Cleansing: Saline Topical Orders: Santyl Ointment (Apply to wound bed 2mm or nickel thick.) Primary Wound Care Dressing: see topical orders Secondary Wound Care Dressing: comfort foam. Bathing/Showering/Hygiene: May shower without wound dressing Off-Loading: Low air-loss mattress and Turn and reposition every 2 hours Wound Number 4: Stage 3 pressure ulcer of Right medial gluteal fold Adherent slough to the wound bed. Does Wound require Debridement?: No Duration: Other (while inpatient. ) Dressing change frequency: Twice Daily and Other (PRN if soiled or saturated. ) Wound Cleansing: Saline Topical Orders: Santyl Ointment (Apply to wound bed 2mm or nickel thick. ) Primary Wound Care Dressing: Apply Santyl to wound bed first then apply wet to dry with gauze and saline. Secondary Wound Care Dressing: ABD and metapore tape. Bathing/Showering/Hygiene: May shower without wound dressing Off-Loading: Low air-loss mattress and Turn and reposition every 2 hours Non Wound Condition: Left heel , first metatarsal head and third distal toe: stable eschar cap Does Wound require Debridement?: No Duration: Other (while inpatient ) Dressing change frequency: Daily Wound Cleansing: Saline Skin Barriers/Lisa-Wound Care: Betadine (swab to eschar cap ) Primary Wound Care Dressing: see skin barrier care Secondary Wound Care Dressing: comfort foam Bathing/Showering/Hygiene: May shower without wound dressing Off-Loading: Low air-loss mattress, Turn and reposition every 2 hours and Other (heel protector at all times. )
[2023-10-30 16:46] LABS: Glucose Point of Care 341 mg/dL (70-110)
[2023-10-30] MEDS: amoxicillin-clav 875-125 mg Tablet 1 TAB PO (16:52)
--- NOTE | 2023-10-30 17:13 | PC.SLP ---
Still unable to assess patient. Patient had eaten 3 bites of his evening meal, and indicated that everything was coming back up. 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 The patient does indicate he is able to drink thickened liquids with small sips, but it also comes back up according to him.
[2023-10-30] MEDS: atorvastatin 40 mg Tablet PO (18:20)
[2023-10-30 20:34] LABS: Glucose Point of Care 402 mg/dL (70-110)
[2023-10-30] MEDS: tamsulosin 0.4 mg Capsule 0.8 MG PO (21:00)
[2023-10-30] MEDS: insulin glargine 100 units/1 mL 5 UNIT SUBCUT (21:14)
[2023-10-30 23:03] LABS: Glucose Point of Care 444 mg/dL (70-110)
[2023-10-31] VITALS (15 sets, daily range): BP systolic 95–142; BP diastolic 49–67; PULSE 79–98; RESP 16–20; TEMP 36.4–37.2; O2SAT 95–100
[2023-10-31] MEDS: oxyCODONE 5 mg IR Tab/Cap 10 MG PO ×4 (01:56→23:02)
[2023-10-31 02:24] LABS: Glucose Point of Care 417 mg/dL (70-110)
[2023-10-31 06:06] LABS: Glucose Point of Care 429 mg/dL (70-110)
[2023-10-31] MEDS: amiodarone 200 mg Tablet PO (06:08)
[2023-10-31] MEDS: pantoprazole DR 40 mg Tablet PO (06:08)
[2023-10-31] MEDS: docusate sodium 100 mg Capsule 200 MG PO (06:08)
[2023-10-31] MEDS: aspirin 81 mg EC Tablet PO (06:08)
[2023-10-31] MEDS: heparin, porcine 1,000 unit/mL INJ 10 mL 1000 UNIT IV (07:27)
--- NOTE | 2023-10-31 07:44 | PC.HD ---
Due to issues with laptop access to EMR, this RN unable to document initiation of albumin 25% at 0730. In addition,heparin 1000 units loading dose administered vis venous port of HD catheter at 07.
[2023-10-31] MEDS: albumin 12.5 GM/50 ML VIAL IV ×2 (08:05→08:06)
[2023-10-31 10:37] LABS: Glucose Point of Care 181 mg/dL (70-110)
--- NOTE | 2023-10-31 10:47 | P.PN_ITS ---
Subjective 2 Subjective: Without sliding scale his sugar was running around 400, today I have started low intensity sliding scale and blood sugar is 181 Lantus 5 units Plan to discharge him by tomorrow Patient is not interested in feeding tube placement at all he is well aware about the difference between OG NG tube and feeding tube Vitals/I&O/Wt Last Vital Signs Temp 97.9 F 10/31/23 07:42 Pulse 92 10/31/23 09:19 Resp 16 10/31/23 09:19 BP 134/49 10/31/23 07:42 Pulse Ox 97 10/31/23 09:19 O2 Del Method Nasal Cannula 10/31/23 09:19 O2 Flow Rate 3 10/31/23 09:19 10/30/23 10/31/23 10/31/23 22:59 06:59 14:59 Intake Total 100 / 916.667 0 / 916.667 Output Total 0 / 0 Balance 100 / 916.667 0 / 916.667 Weight last 48 hrs Weight 69.031 kg Weight 69.264 kg Physical Exam 2 Narrative: Patient is getting dialyzed Euvolemic Sacral area ulcer GCS 15 Pleasant cooperative Currently on 2 L S1, S2 Hemodynamically stable Has a brace on right knee Data 10/30/23 03:30 10/30/23 03:30 Micro: Microbiology 10/28/23 12:32 Blood Culture - Preliminary Blood 10/28/23 14:40 Gram Stain - Final Buttock Wound Culture - Preliminary Gram Negative Rods A&P Assessment and plan (1) Hypertension: Qualifiers: Hypertension type: primary hypertension Qualified Code(s): I10 - Essential (primary) hypertension (2) Aortic stenosis: (3) Atrial fibrillation: (4) Peripheral arterial disease: (5) Chronic anticoagulation: (6) Diabetes type 1, uncontrolled: (7) Diabetic foot ulcer: (8) Hypoglycemia: (9) Diabetic ulcer of heel: (10) Diabetic ulcer of left foot: Qualifiers: Diabetic foot ulcer location: heel Diabetes mellitus type: due to underlying condition Non-pressure ulcer stage: unspecified non-pressure ulcer stage Qualified Code(s): E08.621 - Diabetes mellitus due to underlying condition with foot ulcer; L97.429 - Non-pressure chronic ulcer of left heel and midfoot with unspecified severity (11) COPD (chronic obstructive pulmonary disease): (12) Pressure ulcer of sacral region, stage 4: Plan Today blood sugar improved with use of low intensity sliding scale, without sliding scale his sugar was running around 400 Patient is stating that he has been diagnosed with type 1 diabetes I have requested KYRIE antibodies and C-peptide to make sure he has a correct diagnosis Spoke with Dr. Singletary who has recommended CGM outpatient Patient is not interesting in PEG tube placement Getting dialyzed today My plan is to discharge him by tomorrow with adjustment of insulin Attestations 2 Medical Necessity Statement*: Discharge tomorrow Diagnoses Primary hypertension I10 Hypertension type: primary hypertension Aortic stenosis I35.0 Atrial fibrillation I48.91 Peripheral arterial disease I73.9 Chronic anticoagulation Z79.01 Diabetes type 1, uncontrolled Diabetic foot ulcer E11.621; L97.509 Hypoglycemia E16.2 Diabetic ulcer of heel E11.621; L97.409 Diabetic ulcer of left heel associated with diabetes mellitus due to underlying condition, unspecified ulcer stage E08.621; L97.429 Diabetic foot ulcer location: heel Diabetes mellitus type: due to underlying condition Non-pressure ulcer stage: unspecified non-pressure ulcer stage COPD (chronic obstructive pulmonary disease) J44.9 Pressure ulcer of sacral region, stage 4 L89.154
[2023-10-31] MEDS: apixaban 5 mg Tablet 2.5 MG PO ×2 (11:03→20:44)
[2023-10-31] MEDS: b-complex-vitamin c Tablet 1 EACH PO (11:04)
[2023-10-31] MEDS: calcium carbonate 500 mg Chew Tablet PO (11:04)
[2023-10-31] MEDS: amoxicillin-clav 875-125 mg Tablet 1 TAB PO ×2 (11:04→17:11)
[2023-10-31] MEDS: polyethylene glycol 3350 Pkt 17 gm PO ×2 (11:05→17:11)
[2023-10-31 11:10] LABS: C-Peptide <0.10 ng/mL (0.80-3.85)
--- NOTE | 2023-10-31 12:34 | P.PN_ITS ---
Subjective 2 Subjective: s/p HD Medications: Reviewed: Yes Vitals/I&O/Wt Last Vital Signs Temp 97.5 F L 10/31/23 11:58 Pulse 79 10/31/23 11:58 Resp 18 10/31/23 11:58 BP 114/66 10/31/23 11:58 Pulse Ox 97 10/31/23 11:58 O2 Del Method Nasal Cannula 10/31/23 09:19 O2 Flow Rate 3 10/31/23 09:19 10/30/23 10/31/23 10/31/23 22:59 06:59 14:59 Intake Total 100 / 916.667 0 / 916.667 401 / 401 Output Total 0 / 0 1900 / 1900 Balance 100 / 916.667 0 / 916.667 -1499 / -1499 Weight last 48 hrs Weight 67.2 kg Weight 69.031 kg Weight 69.264 kg Physical Exam 2 Narrative: Awake alert no acute distress Data 10/30/23 03:30 10/30/23 03:30 Micro: Microbiology 10/28/23 14:40 Gram Stain - Final Buttock Wound Culture - Final Acinetobacter baumannii/haemol 10/28/23 12:32 Blood Culture - Preliminary Blood A&P Assessment and plan (1) ESRD (end stage renal disease) on dialysis: Plan 1. End-stage renal disease: On MWF schedule as outpatient-HD done today 2. Anemia: Hemoglobin 9.5, ordered TAVON 3. Hypoglycemia: 4. History of A-fib on chronic anticoagulation 5. Sacral decubitus ulcer Plan: s/p Hemodialysis today , TAVON ordered Patient evaluated using audiovisual cart. Time spent 20 minutes. Attestations 2 Medical Necessity Statement*: per medicine team Coding Level of Care Code Acute Code for Chg Fwd Diagnoses ESRD (end stage renal disease) on dialysis N18.6; Z99.2
[2023-10-31] MEDS: insulin lispro 100 unit/1 mL SUBCUT ×2 (13:11→22:22)
[2023-10-31] MEDS: calcium acetate 667 mg Capsule PO ×2 (13:11→17:10)
[2023-10-31] MEDS: collagenase oint 30 gm TOPICAL (13:12)
[2023-10-31] MEDS: collagenase oint 30 gm 1 APPLIC TOPICAL ×2 (14:07)
[2023-10-31 14:46] LABS: Glucose Point of Care 213 mg/dL (70-110)
[2023-10-31 17:00] LABS: Glucose Point of Care 123 mg/dL (70-110)
[2023-10-31] MEDS: atorvastatin 40 mg Tablet PO (19:00)
[2023-10-31] MEDS: tamsulosin 0.4 mg Capsule 0.8 MG PO (20:44)
[2023-10-31 21:37] LABS: Glucose Point of Care 241 mg/dL (70-110)
[2023-10-31] MEDS: insulin glargine 100 units/1 mL 5 UNIT SUBCUT (22:22)
[2023-11-01] VITALS (8 sets, daily range): BP systolic 106–128; BP diastolic 41–72; PULSE 91–118; RESP 16–18; TEMP 36.5–36.8; O2SAT 93–97
[2023-11-01 01:32] LABS: Glucose Point of Care 128 mg/dL (70-110)
[2023-11-01] MEDS: oxyCODONE 5 mg IR Tab/Cap 10 MG PO ×3 (03:01→12:31)
[2023-11-01] MEDS: amiodarone 200 mg Tablet PO (06:15)
[2023-11-01] MEDS: pantoprazole DR 40 mg Tablet PO (06:15)
[2023-11-01] MEDS: docusate sodium 100 mg Capsule 200 MG PO (06:15)
[2023-11-01] MEDS: aspirin 81 mg EC Tablet PO (06:15)
[2023-11-01 07:13] LABS: Glucose Point of Care 145 mg/dL (70-110)
[2023-11-01] MEDS: apixaban 5 mg Tablet 2.5 MG PO (08:33)
[2023-11-01] MEDS: amoxicillin-clav 875-125 mg Tablet 1 TAB PO (08:33)
[2023-11-01] MEDS: calcium acetate 667 mg Capsule PO ×2 (08:33→12:31)
[2023-11-01] MEDS: b-complex-vitamin c Tablet 1 EACH PO (08:33)
[2023-11-01] MEDS: insulin lispro 100 unit/1 mL SUBCUT ×2 (08:33→12:30)
--- NOTE | 2023-11-01 10:52 | PM.DCS ---
Discharge Providers Date of Admission: 10/28/23 16:34 Date of Discharge: November 01, 2023 Attending Provider at Admission: Yue Zhong MD Attending Provider at Discharge: Mitzi Gonsalez MD Primary Care Provider: César Gallegos DO Diagnoses at Discharge Discharge Diagnosis (1) ESRD (end stage renal disease) on dialysis: Status: Acute Reason for Visit Reason for Visit: sob Discharge Data Studies Completed and Pending Completed Studies During Hospitalization Category Date Time Status XR chest 1V portable [id number] Stat Exams 10/28/23 10:56 Completed CV. echo complete* [id number] Routine Ultrasound 10/29/23 23:00 Completed Pending at discharge Category Date Time Status Blood Cultures ([facility]) Routine Lab 10/28/23 12:32 Results Blood Cultures ([facility]) Routine Lab 10/28/23 12:40 Results GAD65 IA-2 Insulin AB Routine Lab 10/30/23 03:30 Received Radiology Impressions Chest X-Ray 10/28/23 10:56 IMPRESSION: Persistent bilateral pulmonary opacity, similar to the findings on 10/13/2023. Possible persistent or recurrent infection versus scarring and atelectasis. Laboratory Results WBC 9.45 10^3/uL (3.29-11.43) 10/30/23 03:30 RBC 3.06 10^6/uL (3.85-5.65) L 10/30/23 03:30 Hgb 9.10 g/dL (11.27-16.99) L 10/30/23 03:30 Hct 30.1 % (37-53) L 10/30/23 03:30 MCV 98.4 fl (82-101) 10/30/23 03:30 MCH 29.7 pg (27-33) 10/30/23 03:30 MCHC 30.2 g/dL (30-55) 10/30/23 03:30 RDW 18.8 % (12.1-15.1) H 10/30/23 03:30 Plt Count 310 10^3/cmm (157-399) 10/30/23 03:30 MPV 9.2 fL (7.4-10.4) 10/30/23 03:30 Neut % (Auto) 72.8 % 10/30/23 03:30 Lymph % (Auto) 12.7 % 10/30/23 03:30 [place] % (Auto) 12.4 % 10/30/23 03:30 Eos % (Auto) 1.0 % 10/30/23 03:30 Baso % (Auto) 0.6 % 10/30/23 03:30 Neut # (Auto) 6.88 10^3/uL (1.8-7.7) 10/30/23 03:30 Lymph # (Auto) 1.2 10^3/uL (0.8-4.8) 10/30/23 03:30 [place] # (Auto) 1.2 10^3/uL (0.2-0.9) H 10/30/23 03:30 Eos # (Auto) 0.1 10^3/uL (0.0-0.8) 10/30/23 03:30 Baso # (Auto) 0.1 10^3/uL (0.0-0.1) 10/30/23 03:30 Nucleated RBC % (auto) 0 % 10/30/23 03:30 Nucleated RBCs # 0.0 /100WBC 10/30/23 03:30 PT 15.00 SECONDS (12.1-14.9) H 10/28/23 11:21 INR 1.14 (0.8-1.2) 10/28/23 11:21 APTT 111.1 SECONDS (23.9-36.7) H D 10/29/23 13:23 Sodium 128 mmol/L (136-145) L 10/30/23 03:30 Potassium 4.2 mmol/L (3.5-5.1) 10/30/23 03:30 Chloride 94 mmol/L (98-107) L 10/30/23 03:30 Carbon Dioxide 27 mmol/L (22-29) 10/30/23 03:30 Anion Gap 11.2 (5-19) 10/30/23 03:30 BUN 15 mg/dL (6-20) 10/30/23 03:30 Creatinine 2.1 mg/dL (0.7-1.2) H 10/30/23 03:30 GFR Calculation 32.8 mL/min (90-130) L 10/30/23 03:30 Glucose 284 mg/dL (65-115) H 10/30/23 03:30 POC Glucose 145 mg/dL (70-110) H 11/01/23 06:42 Estimat Average Glucose 103 10/29/23 04:05 Hemoglobin A1c 5.2 % (4.0-6.0) 10/29/23 04:05 C-Peptide <0.10 ng/mL (0.80-3.85) L 10/30/23 03:30 Calculated Osmolality 277 mOsm/kg (285-295) L 10/30/23 03:30 Calcium 8.7 mg/dL (8.5-10.5) 10/30/23 03:30 Phosphorus 4.1 mg/dL (2.5-4.5) 10/29/23 04:05 Magnesium 2.1 mg/dL (1.7-2.3) 10/29/23 04:05 Total Bilirubin 0.4 mg/dL (0.15-1.2) 10/29/23 04:05 AST 16 U/L (0-40) 10/29/23 04:05 ALT 17 U/L (0-41) 10/29/23 04:05 Alkaline Phosphatase 157 U/L (40-130) H 10/29/23 04:05 Troponin T 5th Gen ng/L 481 ng/L (0-15) H* 10/28/23 21:11 Troponin T 120 Minute 483.6 ng/L (0-15) H 10/28/23 23:45 Delta Troponin T 2.6 ABS# (0-10) 10/28/23 23:45 Troponin T Hi Sens 6Hr 490.2 ng/L (0-15) H 10/29/23 04:05 Troponin T Hi Sens 6Hr Delta -9.2 ng/L (0-12) L 10/29/23 04:05 NT-Pro-B Natriuret Pep 91112 pg/mL (0-125) H 10/28/23 11:21 Total Protein 4.6 g/dL (6.6-8.7) L 10/29/23 04:05 Albumin 2.0 g/dL (3.5-5.2) L 10/29/23 04:05 Globulin 2.6 g/dL (1.3-4.6) 10/29/23 04:05 TSH 0.68 uIU/mL (0.27-4.20) 10/29/23 04:05 Hep Bs Antigen Non-reactive (Nonreactive) 10/29/23 04:05 Hep Bs Antibody 34.8 (11.5-1000) 10/29/23 04:05 Vitals Last Vital Signs Temp 98.2 F 11/01/23 08:29 Pulse 107 H 11/01/23 09:05 Resp 17 11/01/23 09:05 BP 128/72 11/01/23 08:29 Pulse Ox 97 11/01/23 09:05 O2 Del Method Nasal Cannula 11/01/23 09:05 O2 Flow Rate 3 11/01/23 09:05 Discharge Plan Discharge Patient Disposition: Xfer [facility] Condition: Stable Prescriptions: Continued atorvastatin 80 mg tablet 80 mg PO BEDTIME@19 Incruse Ellipta 62.5 mcg/actuation blister with device 1 inh INHALATION DAILY@07 ipratropium-albuterol 0.5 mg-3 mg(2.5 mg base)/3 mL solution for nebulization 3 ml INHALATION Q6H PRN (Reason: Wheezing) amiodarone 200 mg Tablet 200 mg PO DAILY@07 clopidogrel 75 mg tablet 75 mg PO DAILY@07 tamsulosin 0.4 mg capsule 0.8 mg PO BEDTIME pantoprazole 40 mg Tablet,Delayed Release (Dr/Ec) 40 mg PO DAILY@07 docusate sodium 100 mg Capsule 200 mg PO DAILY@07 Santyl 250 unit/gram Ointment See Rx Instructions .ROUTE .COMPLEX Rx Instructions: apply as directed topically left and right ischial (inner upper thigh) nickel thick santyl to wound bed cover with bordered foam and secure with tape every shift polyethylene glycol 3350 17 gram/dose Powder 17 g PO BID ondansetron 4 mg tablet,disintegrating 4 mg PO Q6H PRN (Reason: Nausea) calcium acetate(phosphat bind) 667 mg capsule 667 mg PO TID oxycodone 10 mg tablet 10 mg PO Q8H PRN (Reason: Pain) Eliquis 2.5 mg tablet 2.5 mg PO DAILY@07 melatonin 3 mg Capsule 3 mg PO BEDTIME calcium carbonate 200 mg calcium (500 mg) Tablet,Chewable 500 mg PO BID PRN (Reason: Heartburn) Nephro-Candis 0.8 mg Tablet 1 tab PO DAILY albuterol sulfate 90 mcg/actuation Hfa Aerosol Inhaler 2 puff INHALATION Q6H PRN (Reason: Dyspnea) Santyl 250 unit/gram ointment See Rx Instructions .ROUTE .COMPLEX Rx Instructions: apply sacrum cleanse with ns, apply nickel thick santyl t owound bed pack with ns rolled damp gauze (kerlex) and cover with bordered foam and secure with tape every shift acetaminophen 325 mg Tablet 650 mg PO QID PRN (Reason: Pain) bisacodyl [Dulcolax (bisacodyl)] 10 mg Suppository 10 mg [place] DAILY PRN (Reason: Constipation) Rx Instructions: if no results from mom Changed Lantus Solostar U-100 Insulin 100 unit/mL (3 mL) insulin pen 5 unit SUBCUT BEDTIME@20 Qty: 15 3RF insulin lispro 100 unit/mL Insulin Pen See Rx Instructions .ROUTE .COMPLEX Qty: 15 3RF Rx Instructions: sliding scale before meals 141-180=2 units 181-220=4 units 221-260=6 units 261-300=8 units 301-350=10 units 351-400=12 units 401-450=14 units if blood sugar is greater than 450 give 16 units Discontinued aspirin 81 mg Tablet,Delayed Release (Dr/Ec) 81 mg PO DAILY@07 insulin lispro 100 unit/mL Insulin Pen 14 unit SUBCUT QAM Discharge Orders: Discharge Order (Routine); Ordered 11/01/23 Ordered By: Mitzi Gonsalez Referrals: Perry Singletary MD [Physician] - 4-7 days (We have notified your physician's clinic of the need for a follow-up appointment to be scheduled. If you have not heard from them within the next 2 business days, please call them directly. ) César Gallegos, [Primary Care Provider] - Discharge Diet: As Directed and Diabetic Activity Restrictions/Additional Instructions: For dysphagia we have recommended level 4. pureed diet with extremely thick liquid cardiac consistent carb diet Please only use low intensity sliding scale before meals and Lantus 5 units at night Please see Dr. Singletary metal worker for CGM/insulin pump Discharge Attestations Time Spent in Discharge Care*: greater than 30 min Quality Metrics Clinical Quality Measures [ No reported AMI, CVA or VTE this stay] Coding Level of Care Code Acute Code for Chg Fwd Diagnoses ESRD (end stage renal disease) on dialysis N18.6; Z99.2
--- NOTE | 2023-11-01 11:03 | P.DS_ITS ---
Discharge Providers Date of Admission: 10/28/23 16:34 Date of Discharge: November 01, 2023 Attending Provider at Admission: Yue Zhong MD Attending Provider at Discharge: Mitzi Gonsalez MD Primary Care Provider: César Gallegos DO Diagnoses at Discharge Discharge Diagnosis (1) ESRD (end stage renal disease) on dialysis: Status: Acute Reason for Visit Reason for Visit: sob Hospital Course Hospital Course 58-year-old male with history of insulin-dependent type 1 diabetes, presented to the hospital from [facility] for hypoglycemic event. During hospitalization his sugar was maintained with D10, his blood sugar remained stable with low intensity sliding kale and reducing the Lantus to 5 units, if we do not do sliding scale his sugar will stay up to 400s, I have spoken with Dr. Singletary who recommended CGM, will give him referral on discharge, patient has been getting dialysis during hospitalization, he never spiked fever, remained hemodynamically stable on 1 to 2 L of oxygen which is his baseline requirement, he does have stage IV sacral ulcer with oropharyngeal dysphagia, he is on level 4 dysphagia diet he does not want to opt for PEG tube placement he does have chronic aspiration related pulmonary fibrosis. For his A-fib I will continue Eliquis along Plavix discontinue aspirin. Continue colostomy care and diabetic foot ulcer care. Please note his hemoglobin A1c is around 5 he is prone to hypoglycemic events. At this point we have reduced amount of insulin his sugar is very labile. I am hoping his insurance would approve CGM to prevent readmissions for hypoglycemia. Physical Exam Narrative: Awake and alert Sacral ulcer stage IV Right leg amputation Colostomy bag in place GCS 15 Nonfocal neuroexam Eating breakfast Discharge Data Studies Completed and Pending Completed Studies During Hospitalization Category Date Time Status XR chest 1V portable [id number] Stat Exams 10/28/23 10:56 Completed CV. echo complete* [id number] Routine Ultrasound 10/29/23 23:00 Completed Pending at discharge Category Date Time Status Blood Cultures ([facility]) Routine Lab 10/28/23 12:32 Results Blood Cultures ([facility]) Routine Lab 10/28/23 12:40 Results GAD65 IA-2 Insulin AB Routine Lab 10/30/23 03:30 Received Radiology Impressions Chest X-Ray 10/28/23 10:56 IMPRESSION: Persistent bilateral pulmonary opacity, similar to the findings on 10/13/2023. Possible persistent or recurrent infection versus scarring and atelectasis. Laboratory Results WBC 9.45 10^3/uL (3.29-11.43) 10/30/23 03:30 RBC 3.06 10^6/uL (3.85-5.65) L 10/30/23 03:30 Hgb 9.10 g/dL (11.27-16.99) L 10/30/23 03:30 Hct 30.1 % (37-53) L 10/30/23 03:30 MCV 98.4 fl (82-101) 10/30/23 03:30 MCH 29.7 pg (27-33) 10/30/23 03:30 MCHC 30.2 g/dL (30-55) 10/30/23 03:30 RDW 18.8 % (12.1-15.1) H 10/30/23 03:30 Plt Count 310 10^3/cmm (157-399) 10/30/23 03:30 MPV 9.2 fL (7.4-10.4) 10/30/23 03:30 Neut % (Auto) 72.8 % 10/30/23 03:30 Lymph % (Auto) 12.7 % 10/30/23 03:30 [place] % (Auto) 12.4 % 10/30/23 03:30 Eos % (Auto) 1.0 % 10/30/23 03:30 Baso % (Auto) 0.6 % 10/30/23 03:30 Neut # (Auto) 6.88 10^3/uL (1.8-7.7) 10/30/23 03:30 Lymph # (Auto) 1.2 10^3/uL (0.8-4.8) 10/30/23 03:30 [place] # (Auto) 1.2 10^3/uL (0.2-0.9) H 10/30/23 03:30 Eos # (Auto) 0.1 10^3/uL (0.0-0.8) 10/30/23 03:30 Baso # (Auto) 0.1 10^3/uL (0.0-0.1) 10/30/23 03:30 Nucleated RBC % (auto) 0 % 10/30/23 03:30 Nucleated RBCs # 0.0 /100WBC 10/30/23 03:30 PT 15.00 SECONDS (12.1-14.9) H 10/28/23 11:21 INR 1.14 (0.8-1.2) 10/28/23 11:21 APTT 111.1 SECONDS (23.9-36.7) H D 10/29/23 13:23 Sodium 128 mmol/L (136-145) L 10/30/23 03:30 Potassium 4.2 mmol/L (3.5-5.1) 10/30/23 03:30 Chloride 94 mmol/L (98-107) L 10/30/23 03:30 Carbon Dioxide 27 mmol/L (22-29) 10/30/23 03:30 Anion Gap 11.2 (5-19) 10/30/23 03:30 BUN 15 mg/dL (6-20) 10/30/23 03:30 Creatinine 2.1 mg/dL (0.7-1.2) H 10/30/23 03:30 GFR Calculation 32.8 mL/min (90-130) L 10/30/23 03:30 Glucose 284 mg/dL (65-115) H 10/30/23 03:30 POC Glucose 145 mg/dL (70-110) H 11/01/23 06:42 Estimat Average Glucose 103 10/29/23 04:05 Hemoglobin A1c 5.2 % (4.0-6.0) 10/29/23 04:05 C-Peptide <0.10 ng/mL (0.80-3.85) L 10/30/23 03:30 Calculated Osmolality 277 mOsm/kg (285-295) L 10/30/23 03:30 Calcium 8.7 mg/dL (8.5-10.5) 10/30/23 03:30 Phosphorus 4.1 mg/dL (2.5-4.5) 10/29/23 04:05 Magnesium 2.1 mg/dL (1.7-2.3) 10/29/23 04:05 Total Bilirubin 0.4 mg/dL (0.15-1.2) 10/29/23 04:05 AST 16 U/L (0-40) 10/29/23 04:05 ALT 17 U/L (0-41) 10/29/23 04:05 Alkaline Phosphatase 157 U/L (40-130) H 10/29/23 04:05 Troponin T 5th Gen ng/L 481 ng/L (0-15) H* 10/28/23 21:11 Troponin T 120 Minute 483.6 ng/L (0-15) H 10/28/23 23:45 Delta Troponin T 2.6 ABS# (0-10) 10/28/23 23:45 Troponin T Hi Sens 6Hr 490.2 ng/L (0-15) H 10/29/23 04:05 Troponin T Hi Sens 6Hr Delta -9.2 ng/L (0-12) L 10/29/23 04:05 NT-Pro-B Natriuret Pep 78525 pg/mL (0-125) H 10/28/23 11:21 Total Protein 4.6 g/dL (6.6-8.7) L 10/29/23 04:05 Albumin 2.0 g/dL (3.5-5.2) L 10/29/23 04:05 Globulin 2.6 g/dL (1.3-4.6) 10/29/23 04:05 TSH 0.68 uIU/mL (0.27-4.20) 10/29/23 04:05 Hep Bs Antigen Non-reactive (Nonreactive) 10/29/23 04:05 Hep Bs Antibody 34.8 (11.5-1000) 10/29/23 04:05 Vitals Last Vital Signs Temp 98.2 F 11/01/23 08:29 Pulse 107 H 11/01/23 09:05 Resp 17 11/01/23 09:05 BP 128/72 11/01/23 08:29 Pulse Ox 97 11/01/23 09:05 O2 Del Method Nasal Cannula 11/01/23 09:05 O2 Flow Rate 3 11/01/23 09:05 Discharge Plan Discharge Patient Disposition: Xfer SNF Condition: Stable Prescriptions: Continued atorvastatin 80 mg tablet 80 mg PO BEDTIME@19 Incruse Ellipta 62.5 mcg/actuation blister with device 1 inh INHALATION DAILY@07 ipratropium-albuterol 0.5 mg-3 mg(2.5 mg base)/3 mL solution for nebulization 3 ml INHALATION Q6H PRN (Reason: Wheezing) amiodarone 200 mg Tablet 200 mg PO DAILY@07 clopidogrel 75 mg tablet 75 mg PO DAILY@07 tamsulosin 0.4 mg capsule 0.8 mg PO BEDTIME pantoprazole 40 mg Tablet,Delayed Release (Dr/Ec) 40 mg PO DAILY@07 docusate sodium 100 mg Capsule 200 mg PO DAILY@07 Santyl 250 unit/gram Ointment See Rx Instructions .ROUTE .COMPLEX Rx Instructions: apply as directed topically left and right ischial (inner upper thigh) nickel thick santyl to wound bed cover with bordered foam and secure with tape every shift polyethylene glycol 3350 17 gram/dose Powder 17 g PO BID ondansetron 4 mg tablet,disintegrating 4 mg PO Q6H PRN (Reason: Nausea) calcium acetate(phosphat bind) 667 mg capsule 667 mg PO TID oxycodone 10 mg tablet 10 mg PO Q8H PRN (Reason: Pain) Eliquis 2.5 mg tablet 2.5 mg PO DAILY@07 melatonin 3 mg Capsule 3 mg PO BEDTIME calcium carbonate 200 mg calcium (500 mg) Tablet,Chewable 500 mg PO BID PRN (Reason: Heartburn) Nephro-Candis 0.8 mg Tablet 1 tab PO DAILY albuterol sulfate 90 mcg/actuation Hfa Aerosol Inhaler 2 puff INHALATION Q6H PRN (Reason: Dyspnea) Santyl 250 unit/gram ointment See Rx Instructions .ROUTE .COMPLEX Rx Instructions: apply sacrum cleanse with ns, apply nickel thick santyl t owound bed pack with ns rolled damp gauze (kerlex) and cover with bordered foam and secure with tape every shift acetaminophen 325 mg Tablet 650 mg PO QID PRN (Reason: Pain) bisacodyl [Dulcolax (bisacodyl)] 10 mg Suppository 10 mg [place] DAILY PRN (Reason: Constipation) Rx Instructions: if no results from mom Changed Lantus Solostar U-100 Insulin 100 unit/mL (3 mL) insulin pen 5 unit SUBCUT BEDTIME@20 Qty: 15 3RF insulin lispro 100 unit/mL Insulin Pen See Rx Instructions .ROUTE .COMPLEX Qty: 15 3RF Rx Instructions: sliding scale before meals 141-180=2 units 181-220=4 units 221-260=6 units 261-300=8 units 301-350=10 units 351-400=12 units 401-450=14 units if blood sugar is greater than 450 give 16 units Discontinued aspirin 81 mg Tablet,Delayed Release (Dr/Ec) 81 mg PO DAILY@07 insulin lispro 100 unit/mL Insulin Pen 14 unit SUBCUT QA Discharge Orders: Discharge Order (Routine); Ordered 11/01/23 Ordered By: Mitzi Gonsalez Referrals: Perry Singletary MD [Physician] - 4-7 days (We have notified your physician's clinic of the need for a follow-up appointment to be scheduled. If you have not heard from them within the next 2 business days, please call them directly. ) César Gallegos DO [Primary Care Provider] - Discharge Diet: As Directed and Diabetic Activity Restrictions/Additional Instructions: For dysphagia we have recommended level 4. pureed diet with extremely thick liquid cardiac consistent carb diet Please only use low intensity sliding scale before meals and Lantus 5 units at night Please see Dr. Singletary fusing machine operator for CGM/insulin pump Discharge Attestations Time Spent in Discharge Care*: greater than 30 min Quality Metrics Clinical Quality Measures [ No reported AMI, CVA or VTE this stay] Coding Level of Care Code Acute Code for Chg Fwd Diagnoses ESRD (end stage renal disease) on dialysis N18.6; Z99.2
[2023-11-01 11:28] LABS: Glucose Point of Care 149 mg/dL (70-110)
--- NOTE | 2023-11-01 11:44 | P.PN_ITS ---
Subjective 2 Subjective: fells better Medications: Reviewed: Yes Vitals/I&O/Wt Last Vital Signs Temp 97.7 F 11/01/23 12:45 Pulse 118 H 11/01/23 12:45 Resp 18 11/01/23 12:45 BP 106/41 11/01/23 12:45 Pulse Ox 93 11/01/23 12:45 O2 Del Method Room Air 11/01/23 12:45 O2 Flow Rate 3 11/01/23 09:05 10/31/23 11/01/23 11/01/23 22:59 06:59 14:59 Intake Total 240 / 881 2710 / 2710 Balance 240 / -1019 2710 / 2710 Weight last 48 hrs Weight 66.31 kg Weight 67.2 kg Weight 69.031 kg Physical Exam 2 Narrative: Awake alert no acute distress Data 10/30/23 03:30 10/30/23 03:30 Micro: Microbiology 10/28/23 14:40 Gram Stain - Final Buttock Wound Culture - Final Acinetobacter baumannii/haemol A&P Assessment and plan (1) ESRD (end stage renal disease) on dialysis: Plan 1. End-stage renal disease: On MWF schedule as outpatient- 2. Anemia: Hemoglobin 9.5, ordered TAVON 3. Hypoglycemia: 4. History of A-fib on chronic anticoagulation 5. Sacral decubitus ulcer Patient evaluated using audiovisual cart. Time spent 20 minutes. Attestations 2 Medical Necessity Statement*: per medicine Coding Level of Care Code Acute Code for Chg Fwd Diagnoses ESRD (end stage renal disease) on dialysis N18.6; Z99.2
--- NOTE | 2023-11-01 12:06 | PC.SOCIAL ---
IMM Updated Updated pt on IMM. No questions voiced. Provided pt a copy. Initialed, dated, & timed copy in chart.
[2023-11-01 12:50] LABS: SARS Covid-2 Antigen negative (Negative)
[2023-11-15 02:48] LABS: GAD 65 IA-2 Antibody <5.4 U/mL (<5.4); GAD Insulin Autoantibody <0.4 U/mL (<0.4); Glutamic Acid Decarboxylase 65 <5 IU/mL (<5)
== END 2023-11-01 14:20 | disposition skilled nursing facility (03) | DRG 637 ==
LOC: ER 13:42 → MEDSURG 15:46 → ER IP 10-29 06:04 → MEDSURG 10-29 06:04
PROVIDERS: Hospitalist; Student in an Organized Health Care Education/Training Program; Admitting Provider Hospitalist; Emergency Provider Emergency Medicine; PCP Internal Medicine; Visit Provider Internal Medicine
DX: E10.649 Type 1 diabetes mellitus with hypoglycemia without coma (principal); I50.43 Acute on chronic combined systolic (congestive) and diastolic (congestive) heart failure; L89.154 Pressure ulcer of sacral region, stage 4; L89.323 Pressure ulcer of left buttock, stage 3; L89.313 Pressure ulcer of right buttock, stage 3; J69.0 Pneumonitis due to inhalation of food and vomit; I13.2 Hypertensive heart and chronic kidney disease with heart failure and with stage 5 chronic kidney disease, or end stage renal disease; L97.429 Non-pressure chronic ulcer of left heel and midfoot with unspecified severity; Z79.4 Long term (current) use of insulin; Z99.81 Dependence on supplemental oxygen; E10.22 Type 1 diabetes mellitus with diabetic chronic kidney disease; N18.6 End stage renal disease; Z99.2 Dependence on renal dialysis; E05.00 Thyrotoxicosis with diffuse goiter without thyrotoxic crisis or storm; Z87.891 Personal history of nicotine dependence; I25.10 Atherosclerotic heart disease of native coronary artery without angina pectoris; Z95.5 Presence of coronary angioplasty implant and graft; J42 Unspecified chronic bronchitis; E78.5 Hyperlipidemia, unspecified; I48.0 Paroxysmal atrial fibrillation; Z79.01 Long term (current) use of anticoagulants; I25.2 Old myocardial infarction; Z89.511 Acquired absence of right leg below knee; Z93.3 Colostomy status; E10.621 Type 1 diabetes mellitus with foot ulcer; L97.529 Non-pressure chronic ulcer of other part of left foot with unspecified severity; R13.12 Dysphagia, oropharyngeal phase; D63.1 Anemia in chronic kidney disease; J84.10 Pulmonary fibrosis, unspecified; I35.0 Nonrheumatic aortic (valve) stenosis
CPT/HCPCS: 36415; 36416; 71045; 80048; 80053; 82962; 83036; 83735; 83880; 84100; 84443; 84484; 84681; 85025; 85610; 85730; 86337; 86341; 86706; 87040; 87070; 87075; 87077; 87186; 87205; 87340; 87426; 90935; 92610; 93005; 93306; 96365; 96367; 96372; 99285; J0885; J1644; J1815; J1956; J2405; J2543; J3370; J7050; J7060; P9047; Q3014

== ENCOUNTER 2023-11-05 12:18 | Emergency (ER) | payer MEDICARE, MEDICAID, SELFPAY ==
--- NOTE | 2023-11-05 12:15 | ED_ITS ---
HPI - General Adult 2 General: Chief complaint: General Medical Stated complaint: DKA Source: patient and EMS Mode of arrival: EMS Limitations: no limitations History of Present Illness: 58-year-old male who is here by EMS he i s from shelter they are concerned that he is in DKA states his blood sugars running in the 500s today and they did not give him his insulin this morning patient denies any pain anywhere he has no complaints this time he did have some vomiting overnight. Associated symptoms: Reports nausea and vomiting; Deny chest pain, dyspnea, headache(s) or rash Review of Systems 2 Const: Denies: fever(s), chills, body aches or change in appetite ENMT: Denies: throat pain or dental pain Card: Denies: chest pain Resp: Denies: dyspnea GI: Reports: nausea and vomiting; Denies: abdominal pain or diarrhea : Denies: dysuria Musc: Denies: neck pain or back pain Skin/Breast: Denies: rash Neuro: Denies: headache(s) Psych: Denies: depression Himanshu/Lymph: Denies: easy bruising All/Imm: Denies: urticaria PFSH ED 2 PFSH: Medical History Diabetic ulcer of left foot Pressure ulcer of sacral region, stage 3 ESRD (end stage renal disease) on dialysis Below-knee amputation of right lower extremity Opacities of both lungs present on chest 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 Diabetic ulcer of heel Presence of colostomy 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 Chronic anticoagulation due to history of afib Hemodialysis patient Hypoglycemia Pressure ulcer of right buttock, stage 3 Pressure ulcer of left buttock, stage 3 Pressure ulcer of sacral region, stage 4 Diabetic foot ulcer CKD (chronic kidney disease), stage V hemodialysis CAD (coronary artery disease) COPD (chronic obstructive pulmonary disease) Hyperlipidemia History of nicotine dependence Oropharyngeal dysphagia Prostatic hypertrophy Atrial fibrillation onset 06/12 when acutely ill, paroxysmal Congestive heart failure mild reduction in EF, combined systolic and diastolic dysfunction Klebsiella pneumonia MRSA pneumonia Septic shock diagnosis on DC summary from admission 09/2023 NSTEMI (non-ST elevated myocardial infarction) Diabetes type 1, uncontrolled Peripheral arterial disease Aortic stenosis Chronic kidney disease Hypertension Graves disease History of tonsillitis Surgical History Presence of coronary angioplasty implant and graft History of colostomy during hospital stay at [facility] History of amputation below knee right BKA History of cholecystectomy History of knee surgery History of eye surgery History of tonsillectomy and adenoidectomy Family History Grandmother Dementia Social History Smoking and tobacco/nicotine status: former use of tobacco/nicotine Alcohol intake: never Substance/Drug Use: never Housing: Long-Term Physical Exam 2 Const: COMMON NORMALS: no acute distress, patient oriented x3 and healthy appearing HENMT: COMMON NORMALS: normocephalic and atraumatic HEAD & SCALP: n ormocephalic and atraumatic Eye: COMMON NORMALS: Equal, round and reactive pupils present and EOMs intact bilaterally PUPIL: Yes Equal, round and reactive pupils present Neck/C-Spine: COMMON NORMALS: full ROM and supple Chest: COMMONS NORMALS: normal inspection of the chest and normal palpation of entire chest wall Resp: COMMON NORMALS: normal respiratory effort, No retractions, No use of accessory muscles and clear to auscultation bilaterally AUSCULTATION: clear to auscultation bilaterally Cardio: COMMON NORMALS: regular rate, regular rhythm and No murmurs present (Cardio) RATE: regular rate RHYTHM: regular rhythm GI: COMMON NORMALS: Normal to inspection, nondistended, normoactive bowel sounds present, Soft to palpation, non-tender and no masses PALPATION: Yes Soft to palpation Extremity: COMMON NORMALS: normal to inspection and full ROM Neuro: COMMON NORMALS: patient oriented x3, moves all extremities and no focal motor deficits Psych: COMMON NORMALS: mental status grossly normal, Normal thought process present and cooperative THOUGHT PROCESS: Normal thought process present Skin: COMMON NORMALS: no rashes or lesions noted and no wounds GENERAL SKIN EXAM: no rashes or lesions noted Course 2 Vital Signs: Vital signs: Vital Signs Temperature 98.1 F 11/05/23 12:44 Pulse Rate 83 11/05/23 12:44 Respiratory Rate 18 11/05/23 12:44 Blood Pressure 143/65 11/05/23 14:00 Pulse Oximetry 94 11/05/23 14:00 Oxygen Delivery Me thod Nasal Cannula 11/05/23 12:44 Oxygen Flow Rate 3 11/05/23 12:44 MDM - General Adult Medical Decision Making Patient presents here with hyperglycemia they are concerned about DKA is not DKA his blood sugars improved here he has been well-appearing he is stable for discharge back to the shelter. Medical Records I reviewed the patient's medical records. Lab Data I reviewed the patient's lab results. 11/05/23 12:50 11/05/23 12:50 Laboratory Results WBC 10.84 10^3/uL (3.29-11.43) 11/05/23 12:50 RBC 3.22 10^6/uL (3.85-5.65) L 11/05/23 12:50 Hgb 10.00 g/dL (11.27-16.99) L 11/05/23 12:50 Hct 32.4 % (37-53) L 11/05/23 12:50 MCV 100.6 fl (82-101) 11/05/23 12:50 MCH 31.1 pg (27-33) 11/05/23 12:50 MCHC 30.9 g/dL (30-55) 11/05/23 12:50 RDW 21.2 % (12.1-15.1) H 11/05/23 12:50 Plt Count 208 10^3/cmm (157-399) 11/05/23 12:50 MPV 9.0 fL (7.4-10.4) 11/05/23 12:50 Neut % (Auto) 83.4 % 11/05/23 12:50 Lymph % (Auto) 6.8 % 11/05/23 12:50 [place] % (Auto) 8.4 % 11/05/23 12:50 Eos % (Auto) 0.2 % 11/05/23 12:50 Baso % (Auto) 0.7 % 11/05/23 12:50 Neut # (Auto) 9.04 10^3/uL (1.8-7.7) H 11/05/23 12:50 Lymph # (Auto) 0.7 10^3/uL (0.8-4.8) L 11/05/23 12:50 [place] # (Auto) 0.9 10^3/uL (0.2-0.9) 11/05/23 12:50 Eos # (Auto) 0.0 10^3/uL (0.0-0.8) 11/05/23 12:50 Baso # (Auto) 0.1 10^3/uL (0.0-0.1) 11/05/23 12:50 Nucleated RBC % (auto) 0 % 11/05/23 12:50 Nucleated RBCs # 0.0 /100WBC 11/05/23 12:50 Specimen Type Arterial 11/05/23 12:20 Sample Site Radial, left 11/05/23 12:20 ABG pH 7.43 (7.35-7.45) 11/05/23 12:20 ABG pCO2 49.9 mmHg (35-45) H 11/05/23 12:20 ABG pO2 73.0 mmHg (80.0-100.0) L 11/05/23 12:20 ABG PO2/FiO2 Ratio 0 11/05/23 12:20 ABG HCO3 33.3 mmol/L (22-26) H 11/05/23 12:20 ABG Base Excess 7.9 mmol/L (-2.0-2.0) H 11/05/23 12:20 Prashant Test Pos 11/05/23 12:20 Hematocrit 29.4 % (42-52) L 11/05/23 12:20 O2 Delivery Device Nc 11/05/23 12:20 O2 Liters/Min 3.0 % 11/05/23 12:20 FiO2 32.0 % 11/05/23 12:20 Lacquer Sprayer ID Cak 11/05/23 12:20 Sodium 135 mmol/L (136-145) L 11/05/23 12:50 Potassium 4.7 mmol/L (3.5-5.1) 11/05/23 12:50 Chloride 97 mmol/L (98-107) L 11/05/23 12:50 Carbon Dioxide 31 mmol/L (22-29) H 11/05/23 12:50 Anion Gap 11.7 (5-19) 11/05/23 12:50 BUN 37 mg/dL (6-20) H 11/05/23 12:50 Creatinine 3.9 mg/dL (0.7-1.2) H 11/05/23 12:50 GFR Calculation 16.1 mL/min (90-130) L 11/05/23 12:50 Glucose 382 mg/dL (65-115) H 11/05/23 12:50 POC Glucose 290 mg/dL (70-110) H 11/05/23 15:41 Calculated Osmolality 304 mOsm/kg (285-295) H 11/05/23 12:50 Calcium 9.6 mg/dL (8.5-10.5) 11/05/23 12:50 Total Bilirubin 0.3 mg/dL (0.15-1.2) 11/05/23 12:50 AST 9 U/L (0-40) 11/05/23 12:50 ALT 11 U/L (0-41) 11/05/23 12:50 Alkaline Phosphatase 131 U/L (40-130) H 11/05/23 12:50 Total Protein 5.3 g/dL (6.6-8.7) L 11/05/23 12:50 Albumin 2.4 g/dL (3.5-5.2) L 11/05/23 12:50 Globulin 2.9 g/dL (1.3-4.6) 11/05/23 12:50 No radiology studies performed this visit Discharge Plan Discharge Patient Disposition: Home Clinical Impression: Hyperglycemia Condition: Stable Prescriptions: No Action atorvastatin 80 mg tablet 80 mg PO BEDTIME@19 Incruse Ellipta 62.5 mcg/actuation blister with device 1 inh INHALATION DAILY@07 ipratropium-albuterol 0.5 mg-3 mg(2.5 mg base)/3 mL solution for nebulization 3 ml INHALATION Q6H PRN (Reason: Wheezing) amiodarone 200 mg Tablet 200 mg PO DAILY@07 clopidogrel 75 mg tablet 75 mg PO DAILY@07 pantoprazole 40 mg Tablet,Delayed Release (Dr/Ec) 40 mg PO DAILY@07 docusate sodium 100 mg Capsule 200 mg PO DAILY@07 Santyl 250 unit/gram Ointment See Rx Instructions .ROUTE .COMPLEX Rx Instructions: apply as directed topically left and right ischial (inner upper thigh) nickel thick santyl to wound bed cover with bordered foam and secure with tape every shift polyethylene glycol 3350 17 gram/dose Powder 17 g PO BID ondansetron 4 mg tablet,disintegrating 4 mg PO Q6H PRN (Reason: Nausea) calcium acetate(phosphat bind) 667 mg capsule 667 mg PO TID oxycodone 10 mg tablet 10 mg PO Q8H PRN (Reason: Pain) Eliquis 2.5 mg tablet 2.5 mg PO DAILY@07 melatonin 3 mg Capsule 3 mg PO BEDTIME calcium carbonate 200 mg calcium (500 mg) Tablet,Chewable 500 mg PO BID PRN (Reason: Heartburn) Nephro-Candis 0.8 mg Tablet 1 tab PO DAILY albuterol sulfate 90 mcg/actuation Hfa Aerosol Inhaler 2 puff INHALATION Q6H PRN (Reason: Dyspnea) Santyl 250 unit/gram ointment See Rx Instructions .ROUTE .COMPLEX Rx Instructions: apply sacrum cleanse with ns, apply nickel thick santyl t owound bed pack with ns rolled damp gauze (kerlex) and cover with bordered foam and secure with tape every shift insulin lispro 100 unit/mL Insulin Pen See Rx Instructions .ROUTE .COMPLEX Qty: 15 3RF Rx Instructions: sliding scale before meals 141-180=2 units 181-220=4 units 221-260=6 units 261-300=8 units 301-350=10 units 351-400=12 units 401-450=14 units if blood sugar is greater than 450 give 16 units acetaminophen 325 mg Tablet 650 mg PO QID PRN (Reason: Pain) bisacodyl [Dulcolax (bisacodyl)] 10 mg Suppository 10 mg [place] DAILY PRN (Reason: Constipation) Rx Instructions: if no results from mom Lantus Solostar U-100 Insulin 100 unit/mL (3 mL) insulin pen 8 unit SUBCUT BEDTIME@20 Discharge Orders: Discharge ED (Routine); Ordered 11/05/23 Ordered By: Phyllis Park Referrals: César Gallegos DO [Primary Care Provider] - 1-3 days Discharge Diet: Advance as tolerated Discharge Activity: Resume usual activity Patient Instructions: Diabetic Hyperglycemia (ED) Coding Level of Care Code ED Electronics Teacher for Evig Armida
--- NOTE | 2023-11-05 12:21 | ECG_ITS ---
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 Measurements Intervals [place] Rate: 81 P: 81 [place]: 168 QRS: -65 QRSD: 91 T: 86 QT: 301 QTc: 350 Interpretive Statements SINUS RHYTHM LEFT ANTERIOR FASCICULAR BLOCK [QRS AXIS <= -45, QR IN I, RS IN II] NONSPECIFIC T-WAVE ABNORMALITY Compared to ECG 10/29/2023 02:08:03 Left anterior fascicular block now present T-wave abnormality now present Atrial abnormality no longer present Myocardial infarct finding no longer present Electronically Signed On 11-05-2023 19:36:40 DOG RAISER by James Woodall M.D. [id number]
[2023-11-05 12:32] LABS: ABG PCO2 49.9 mmHg (35-45); ABG PH Result 7.43 (7.35-7.45); Arterial Blood Gas Hematocrit 29.4 % (42-52); Base Excess ABG 7.9 mmol/L (-2.0-2.0); Blood Gas Allen Test Pos; Blood Gas Sample Type Arterial; HCO3 ABG 33.3 mmol/L (22-26)
[2023-11-05 12:33] LABS: Blood Gas Operator Identificat CAK; Blood Gas Sample Site Radial, left; Oxygen Device NC; PO2 FiO2 Ratio Arterial Blood 0
[2023-11-05 12:44] VITALS: BP 138/63; PULSE 83; RESP 18; TEMP 36.7; O2SAT 98; BMI 19.8
[2023-11-05 12:52] LABS: Glucose Point of Care 507 mg/dL (70-110)
[2023-11-05 12:56] LABS: Basophils # 0.1 10^3/uL (0.0-0.1); Basophils % 0.7 %; Eosinophils % 0.2 %; Hematocrit 32.4 % (37-53); Lymphocytes # 0.7 10^3/uL (0.8-4.8); Lymphocytes % 6.8 %; Mean Corpuscular HGB Conc 30.9 g/dL (30-55); Mean Corpuscular Hemoglobin 31.1 pg (27-33); Mean Corpuscular Volume 100.6 fl (82-101); Monocytes # 0.9 10^3/uL (0.2-0.9); Monocytes % 8.4 %; Neutrophils # 9.04 10^3/uL (1.8-7.7); Neutrophils % 83.4 %; Nucleated Red Blood Cells % 0 %; Platelet Count 208 10^3/cmm (157-399); Red Blood Count 3.22 10^6/uL (3.85-5.65); Red Cell Distribution Width 21.2 % (12.1-15.1); White Blood Count 10.84 10^3/uL (3.29-11.43)
[2023-11-05 13:15] LABS: Alanine Aminotransferase 11 U/L (0-41); Albumin Level 2.4 g/dL (3.5-5.2); Alkaline Phosphatase 131 U/L (40-130); Anion Gap 11.7 (5-19); Aspartate Amino Transferase 9 U/L (0-40); Blood Urea Nitrogen 37 mg/dL (6-20); Calcium 9.6 mg/dL (8.5-10.5); Carbon Dioxide 31 mmol/L (22-29); Chloride 97 mmol/L (98-107); Globulin 2.9 g/dL (1.3-4.6); Glomerular Filtration Rate 16.1 mL/min (90-130); Glucose 382 mg/dL (65-115); Osmolality Calculated 304 mOsm/kg (285-295); Potassium 4.7 mmol/L (3.5-5.1); Sodium 135 mmol/L (136-145); Total Bilirubin 0.3 mg/dL (0.15-1.2); Total Protein 5.3 g/dL (6.6-8.7)
--- NOTE | 2023-11-05 13:21 | PC.PHAR ---
PTS MAR FROM [facility] [place] ASP 81 MG DISCO. ON 11/01/23- LANTUS DECREASED TO 8 UNITS AT BED ON 11/05/23
[2023-11-05] MEDS: insulin regular-human 100 units/1 mL 12 UNIT IVP (13:34)
[2023-11-05 13:55] LABS: Glucose Point of Care 515 mg/dL (70-110)
[2023-11-05 14:00] VITALS: BP 143/65; O2SAT 94
[2023-11-05] MEDS: insulin regular-human 100 units/1 mL 10 UNIT IVP (14:05)
[2023-11-05 14:47] LABS: Glucose Point of Care 417 mg/dL (70-110)
[2023-11-05] MEDS: insulin regular-human 100 units/1 mL 6 UNIT IVP (14:57)
[2023-11-05 15:44] LABS: Glucose Point of Care 290 mg/dL (70-110)
[2023-11-05 16:18] LABS: NT Pro B Type Natriuretic Pept 23453 pg/mL (0-125)
[2023-11-05 17:17] VITALS: BP 134/84; PULSE 81; RESP 16; O2SAT 99
[2023-11-05 19:00] VITALS: BP 138/77; PULSE 88; O2SAT 97
[2023-11-05 23:01] VITALS: BP 144/62; PULSE 87; O2SAT 98
[2023-11-05 23:04] LABS: Glucose Point of Care 306 mg/dL (70-110)
== END 2023-11-06 00:39 | disposition home or self-care (01) ==
PROVIDERS: Emergency Provider Emergency Medicine; PCP Internal Medicine
DX: E10.65 Type 1 diabetes mellitus with hyperglycemia (principal); Z79.4 Long term (current) use of insulin
CPT/HCPCS: 36415; 36416; 36600; 80053; 82803; 82962; 83880; 85025; 93005; 96374; 96376; 99284; J1815

== ENCOUNTER 2023-11-16 14:41 | Emergency (ER) | payer MEDICARE, MEDICAID, SELFPAY ==
[2023-11-16 14:47] VITALS: BP 170/129; PULSE 102; RESP 16; TEMP 36.8; O2SAT 98
--- NOTE | 2023-11-16 14:55 | CTR_ITS ---
PROCEDURE INFORMATION: Exam: CT Head Without Contrast Exam date and time: 11/16/2023 3:25 PM Age: 58 years old Clinical indication: Injury or trauma; Fall; Blunt trauma (contusions or hematomas); Additional info: Fall, fall backwards, hit head. On 2 thinners TECHNIQUE: Imaging protocol: Computed tomography of the head without contrast. Radiation optimization: All CT scans at this facility use at least one of these dose optimization techniques: automated exposure control; mA and/or kV adjustment per patient size (includes targeted exams where dose is matched to clinical indication); or iterative reconstruction. COMPARISON: CT head wo con* [id number] 09/20/2023 5:02 PM RADIATION DOSE METRICS: Total DLP (mGy-cm): 1029.5 FINDINGS: Brain: No hemorrhage. No edema. Moderate diffuse cerebral atrophy and sequela of chronic small vessel ischemic disease. Old lacunar infarcts noted in the basal ganglia and shona. No mass effect. Cerebral ventricles: No ventriculomegaly. Paranasal sinuses: Visualized sinuses are unremarkable. No fluid levels. Mastoid air cells: Visualized mastoid air cells are well aerated. Bones/joints: Unremarkable. No acute fracture. Soft tissues: Unremarkable. CT/CT head wo con* [id number] IMPRESSION: No acute intracranial abnormality.
--- NOTE | 2023-11-16 14:56 | CTR_ITS ---
PROCEDURE INFORMATION: Exam: CT Cervical Spine Without Contrast Exam date and time: 11/16/2023 3:25 PM Age: 58 years old Clinical indication: Injury or trauma; Fall; Blunt trauma; Additional info: Fall, fall backwards, hit head TECHNIQUE: Imaging protocol: Computed tomography of the cervical spine without contrast. Radiation optimization: All CT scans at this facility use at least one of these dose optimization techniques: automated exposure control; mA and/or kV adjustment per patient size (includes targeted exams where dose is matched to clinical indication); or iterative reconstruction. COMPARISON: CT angio headneck* [id number] 01/14/2019 3:50 PM RADIATION DOSE METRICS: Total DLP (mGy-cm): 606.3 FINDINGS: Bones/joints: No acute fracture. Normal alignment. No significant disc bulge or herniation. No severe spinal canal stenosis. No significant neural foraminal narrowing. Lungs: Lung apices are normal. Soft tissues: Unremarkable. CT/CT cervical spin wo con* [id number] IMPRESSION: No acute findings.
--- NOTE | 2023-11-16 15:45 | PC.PHAR ---
[facility] faxing med list 3:45pm 11/16/23
--- NOTE | 2023-11-16 15:58 | W.ED.FALL ---
HPI - Fall General: Chief Complaint: Fall Stated Complaint: CONTUSION TO BACK OF HEAD S/P FALL Time Seen by Provider: 11/16/23 14:55 Source: patient and EMS Mode of arrival: EMS Limitations: no limitations History of Present Illness: Patient presents emergency department today for concerns of head injury. Patient was in a medical transport vehicle being taken back from dialysis. It is reported that the patient's wheelchair was not secured down and when there was a turn, patient's wheelchair went backwards and patient impacted the back of his head. The patient has no reported loss of consciousness. He has not been vomiting. However, patient is on 2 blood thinners and originally, refused further medical evaluation but, after speaking with the fire department/EMS, was willing to come to the ER for further workup. 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 Chronic anticoagulation due to history of afib Hemodialysis patient Hypoglycemia Pressure ulcer of right buttock, stage 3 Pressure ulcer of left buttock, stage 3 Pressure ulcer of sacral region, stage 4 Diabetic foot ulcer CKD (chronic kidney disease), stage V hemodialysis CAD (coronary artery disease) COPD (chronic obstructive pulmonary disease) Hyperlipidemia History of nicotine dependence Oropharyngeal dysphagia Prostatic hypertrophy Atrial fibrillation onset 06/12 when acutely ill, paroxysmal Congestive heart failure mild reduction in EF, combined systolic and diastolic dysfunction Klebsiella pneumonia MRSA pneumonia Septic shock diagnosis on DC summary from admission 09/2023 NSTEMI (non-ST elevated myocardial infarction) Diabetes type 1, uncontrolled Peripheral arterial disease Aortic stenosis Chronic kidney disease Hypertension Graves disease History of tonsillitis Surgical History Presence of coronary angioplasty implant and graft History of colostomy -08/12 during hospital stay at [facility] History of amputation below knee right BKA History of cholecystectomy History of knee surgery History of eye surgery History of tonsillectomy and adenoidectomy Family History Grandmother Dementia Social History Smoking and tobacco/nicotine status: former use of tobacco/nicotine Alcohol intake: never Substance/Drug Use: never Housing: Senior Care Physical Exam Const: COMMON NORMALS: no acute distress, patient oriented x3 and alert OTHER: Patient is pleasant. Answers his own history. Eye: COMMON NORMALS: Equal, round and reactive pupils present, EOMs intact bilaterally and conjunctivae normal CONJUNCTIVA: Yes conjunctivae normal PUPIL: Yes Equal, round and reactive pupils present Lymph: LYMPHATIC: no lymphadenopathy noted Resp: COMMON NORMALS: normal respiratory effort, No retractions and No use of accessory muscles : COMMON NORMALS: Yes no CVA tenderness BLADDER/KIDNEY EXAM: Yes no CVA tenderness Back/Pelvis: COMMON NORMALS: no CVA tenderness, thoracic and lumbar spine normal to inspection and thoraco-lumbar ROM normal Extremity: COMMON NORMALS: normal to inspection Neuro: COMMON NORMALS: patient oriented x3 SENSORIUM/ORIENTATION: Yes alert Skin: COMMON NORMALS: no rashes or lesions noted and turgor normal NARRATIVE SKIN EXAM: Patient does have some superficial abrasion noted to the back of his head approximately 3 cm in diameter. No significant swelling, hematoma, or bleeding noted. GENERAL SKIN EXAM: no rashes or lesions noted and turgor normal Course Vital Signs: Vital signs: Vital Signs Temperature 98.2 F 11/16/23 14:47 Pulse Rate 102 H 11/16/23 14:47 Respiratory Rate 16 11/16/23 14:47 Blood Pressure 170/129 11/16/23 14:47 Pulse Oximetry 98 11/16/23 14:47 Oxygen Delivery Me thod Nasal Cannula 11/16/23 14:47 Oxygen Flow Rate 2 11/16/23 14:47 MDM - Fall Medical Decision Making Patient presents in no signs of acute distress. However, he does have an abrasion noted to the back of his head. It is very superficial without any large surrounding hematoma. It is not significantly tender on palpation and there is no skull depression noted. However, patient confirms that he is on 2 blood thinning medications. We did perform a CT of his head and neck which were both negative for any acute concerns. Patient is safe for transfer back home at this time with strict return precautions for any change or worsening condition including vomiting, severe headache, or neurological change. Patient verbalizes understanding and agreement to treatment plan. Differential Diagnosis Unlikely syncope, dislocation of shoulder region, fracture of wrist, compression fracture or concussion with loss of consciousness Lab Data Radiology Impressions Head CT 11/16/23 14:55 IMPRESSION: No acute intracranial abnormality. Cervical Spine CT 11/16/23 14:56 IMPRESSION: No acute findings. All radiology interpretation(s) finalized by discharge Discharge Plan Discharge Patient Disposition: Home Clinical Impression: Contusion of occipital region of scalp, Abrasion of scalp, Chronic anticoagulation Condition: Stable Prescriptions: No Action atorvastatin 80 mg tablet 80 mg PO BEDTIME@19 Incruse Ellipta 62.5 mcg/actuation blister with device 1 inh INHALATION DAILY@07 ipratropium-albuterol 0.5 mg-3 mg(2.5 mg base)/3 mL solution for nebulization 3 ml INHALATION Q6H PRN (Reason: Wheezing) amiodarone 200 mg Tablet 200 mg PO DAILY@07 clopidogrel 75 mg tablet 75 mg PO DAILY@07 pantoprazole 40 mg Tablet,Delayed Release (Dr/Ec) 40 mg PO DAILY@07 docusate sodium 100 mg Capsule 200 mg PO DAILY@07 Santyl 250 unit/gram Ointment See Rx Instructions .ROUTE .COMPLEX Rx Instructions: apply as directed topically left and right ischial (inner upper thigh) nickel thick santyl to wound bed cover with bordered foam and secure with tape every shift polyethylene glycol 3350 17 gram/dose Powder 17 g PO BID ondansetron 4 mg tablet,disintegrating 4 mg PO Q6H PRN (Reason: Nausea) calcium acetate(phosphat bind) 667 mg capsule 667 mg PO TID oxycodone 10 mg tablet 10 mg PO Q8H PRN (Reason: Pain) Eliquis 2.5 mg tablet 2.5 mg PO DAILY@07 melatonin 3 mg Capsule 3 mg PO BEDTIME calcium carbonate 200 mg calcium (500 mg) Tablet,Chewable 500 mg PO BID PRN (Reason: Heartburn) Nephro-Candis 0.8 mg Tablet 1 tab PO DAILY albuterol sulfate 90 mcg/actuation Hfa Aerosol Inhaler 2 puff INHALATION Q6H PRN (Reason: Dyspnea) Santyl 250 unit/gram ointment See Rx Instructions .ROUTE .COMPLEX Rx Instructions: apply sacrum cleanse with ns, apply nickel thick santyl t owound bed pack with ns rolled damp gauze (kerlex) and cover with bordered foam and secure with tape every shift insulin lispro 100 unit/mL Insulin Pen See Rx Instructions .ROUTE .COMPLEX Qty: 15 3RF Rx Instructions: sliding scale before meals 141-180=2 units 181-220=4 units 221-260=6 units 261-300=8 units 301-350=10 units 351-400=12 units 401-450=14 units if blood sugar is greater than 450 give 16 units acetaminophen 325 mg Tablet 650 mg PO QID PRN (Reason: Pain) bisacodyl [Dulcolax (bisacodyl)] 10 mg Suppository 10 mg [place] DAILY PRN (Reason: Constipation) Rx Instructions: if no results from mom Lantus Solostar U-100 Insulin 100 unit/mL (3 mL) insulin pen 8 unit SUBCUT BEDTIME@20 Discharge Orders: Discharge ED (Routine); Ordered 11/16/23 Ordered By: Jillian Phan Referrals: César Gallegos DO [Primary Care Provider] - Patient Instructions: Head Injury (ED), Scalp Contusion in Adults (ED) Activity Restrictions/Additional Instructions: Evaluation here in the emergency department today was able to determine that there is no signs of any intracranial injury or bleeding from the injury you sustained today. However, we want you to carefully monitor for any sudden onset of severe headache, vomiting, dizziness or blurry vision. If you have any of these changes you need to be seen and reevaluated immediately through the emergency department. Otherwise, he can follow-up with your primary care doctor in the next few days for an overall recheck. Coding Level of Care Code ED Cable Inspector for Gregorio Huffman
[2023-11-16 16:36] VITALS: BP 134/78; PULSE 92; RESP 18; O2SAT 98
[2023-11-16] MEDS: oxyCODONE-APAP 10-325 mg Tablet 1 TAB PO (19:26)
[2023-11-16 21:47] VITALS: BP 134/78; PULSE 92; RESP 18; TEMP 36.8; O2SAT 98
== END 2023-11-16 21:48 | disposition home or self-care (01) ==
PROVIDERS: Emergency Provider Physician Assistant; PCP Internal Medicine
DX: S00.03XA Contusion of scalp, initial encounter (principal); S00.01XA Abrasion of scalp, initial encounter; D68.318 Other hemorrhagic disorder due to intrinsic circulating anticoagulants, antibodies, or inhibitors; Z79.02 Long term (current) use of antithrombotics/antiplatelets; Z79.01 Long term (current) use of anticoagulants; Z79.4 Long term (current) use of insulin; Z87.891 Personal history of nicotine dependence; Z95.5 Presence of coronary angioplasty implant and graft; Z89.511 Acquired absence of right leg below knee; E11.22 Type 2 diabetes mellitus with diabetic chronic kidney disease; I13.2 Hypertensive heart and chronic kidney disease with heart failure and with stage 5 chronic kidney disease, or end stage renal disease; I50.9 Heart failure, unspecified; N18.6 End stage renal disease; Z99.2 Dependence on renal dialysis; I25.10 Atherosclerotic heart disease of native coronary artery without angina pectoris; J44.9 Chronic obstructive pulmonary disease, unspecified; E78.5 Hyperlipidemia, unspecified; I25.2 Old myocardial infarction; W22.8XXA Striking against or struck by other objects, initial encounter
CPT/HCPCS: 70450; 72125; 99284

== ENCOUNTER 2023-12-07 10:41 | Inpatient (IN) | payer MEDICARE, MEDICAID, SELFPAY ==
[2023-12-07] VITALS (59 sets, daily range): BP systolic 49–104; BP diastolic 33–59; PULSE 0–130; RESP 24–39; TEMP 34.6–36.1; O2SAT 62–100; BMI 20.5
[2023-12-07] MEDS: EPINEPHrine 0.1 mg/mL SYR 10 mL 1 MG IVP ×2 (10:46→10:50)
[2023-12-07] MEDS: calcium chloride 10% Syr 10 mL 1 GM IVP ×2 (10:48→12:00)
[2023-12-07] MEDS: sodium bicarbonate 8.4% 1 mEq/mL 50mL Syr 50 MEQ IVP (10:49)
--- NOTE | 2023-12-07 10:59 | ECG_ITS ---
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 Measurements Intervals [place] Rate: 126 P: 83 MO: 157 QRS: -77 QRSD: 102 T: 94 QT: 298 QTc: 432 Interpretive Statements SINUS TACHYCARDIA POSSIBLE ANTERIOR MYOCARDIAL INFARCTION , PROBABLY OLD [30 ms Q WAVE IN V3/V4, OR R < 0.2 mV IN V4] Possible INFERIOR MYOCARDIAL INFARCTION , PROBABLY OLD [40+ ms Q WAVE AND/OR ST/T ABNORMALITY IN II/aVF] INTERPRETATION BASED ON A DEFAULT AGE OF 40 YEARS Compared to ECG 11/05/2023 12:21:11 Myocardial infarct finding now present Sinus rhythm no longer present Left anterior fascicular block no longer present T-wave abnormality no longer present Electronically Signed On 12-08-2023 7:42:35 GLOBAL SOURCING MANAGER by Morro Weston M.D. [id number]
[2023-12-07 11:02] LABS: Glucose Point of Care 370 mg/dL (70-110)
[2023-12-07 11:06] LABS: ABG PCO2 50.4 mmHg (35-45); ABG PH Result 7.14 (7.35-7.45); Arterial Blood Gas Hematocrit 32.1 % (42-52); Base Excess ABG -11.7 mmol/L (-2.0-2.0); Blood Gas Allen Test Pos; Blood Gas Operator Identificat CAK; Blood Gas Sample Site Radial, left; Blood Gas Sample Type Arterial; Blood Gas Tidal Volume 0.45; Carboxyhemoglobin 0.2 %THgb (0.4-20.1); HGB O2 Sat 96.5 % (95-100); Ionized Calcium Level - ABG 1.7 mmol/L (1.1-1.4); Methemoglobin 0.9 % (0.4-1.5); Oxygen Device VENT; Oxygen Saturation ABG 97.6; PO2 FiO2 Ratio Arterial Blood 0; Potassium Level - ABG 3.8 mmol/L (3.5-5.0); Total Hemoglobin 10.5 g/dL (14-18)
--- NOTE | 2023-12-07 11:10 | PC.PHAR ---
[facility] 12/07/23 11:10AM
[2023-12-07] MEDS: midazolam hcl 100 MG/100 ML BAG IV (11:22)
--- NOTE | 2023-12-07 11:24 | XRR_ITS ---
PROCEDURE INFORMATION: Exam: XR Chest Exam date and time: 12/07/2023 11:34 AM Age: 58 years old Clinical indication: Device placement; Other: Ett, ng and central line; Additional info: Dyspnea/cough TECHNIQUE: Imaging protocol: Radiologic exam of the chest. Views: 1 view. COMPARISON: CR XR chest 1V portable [id number] 10/28/2023 11:06 AM FINDINGS: Tubes, catheters and devices: Right central line is in the caval atrial junction. Left central line extends to the SVC. Endotracheal tube is 2.7 cm above the juan diego. NG tube extends into the stomach Lungs: Patchy parenchymal densities are seen in the left lower lobe corresponding to alveolar pneumonia No consolidation. Pleural spaces: Unremarkable. No pleural effusion. No pneumothorax. Heart/Mediastinum: Unremarkable. No cardiomegaly. Bones/joints: Unremarkable. XR/XR chest 1V portable [id number] IMPRESSION: 1. Left lower lobe alveolar pneumonia 2. Right central line at the caval atrial junction. 3. Left central line in the SVC. 4. Endotracheal tube is above the juan diego. 5. NG tube is in the stomach
[2023-12-07 11:29] LABS: Basophils # 0.1 10^3/uL (0.0-0.1); Basophils % 0.3 %; Eosinophils % 0.1 %; Hematocrit 25.5 % (37-53); Lymphocytes # 1.2 10^3/uL (0.8-4.8); Lymphocytes % 4.3 %; Mean Corpuscular HGB Conc 28.6 g/dL (30-55); Mean Corpuscular Hemoglobin 30.5 pg (27-33); Mean Corpuscular Volume 106.7 fl (82-101); Mean Platelet Volume 9.6 fL (7.4-10.4); Monocytes # 0.7 10^3/uL (0.2-0.9); Monocytes % 2.5 %; Neutrophils # 24.49 10^3/uL (1.8-7.7); Neutrophils % 87.9 %; Nucleated Red Blood Cells % 0.1 %; Platelet Count 331 10^3/cmm (157-399); Red Blood Count 2.39 10^6/uL (3.85-5.65); Red Cell Distribution Width 17.2 % (12.1-15.1); White Blood Count 27.88 10^3/uL (3.29-11.43)
[2023-12-07] MEDS: fentaNYL 1,000 MCG/100 ML BAG 5 MCG IV (11:33)
[2023-12-07] MEDS: norepinephrine 4 MG/250 ML BAG 37.5 MG IV (11:34)
--- NOTE | 2023-12-07 11:34 | PC.NURSE ---
I/O was infiltrated upon removal, site swollen to touch. x2 epi, x1 sodium bicarb, x2 calcium chloride administered through this line, unsure if pt received any of these medications. per Dr. Peerz to administer x1 calcium chloride through central line.
[2023-12-07] MEDS: vasopressin 40 UNIT/100 ML PREMIX IV (11:39)
[2023-12-07 11:47] LABS: Alanine Aminotransferase 38 U/L (0-41); Albumin Level 1.3 g/dL (3.5-5.2); Alkaline Phosphatase 265 U/L (40-130); Anion Gap 30.1 (5-19); Aspartate Amino Transferase 75 U/L (0-40); Blood Urea Nitrogen 34 mg/dL (6-20); Calcium 10.1 mg/dL (8.5-10.5); Carbon Dioxide 16 mmol/L (22-29); Chloride 94 mmol/L (98-107); Globulin 3.5 g/dL (1.3-4.6); Glomerular Filtration Rate 19.5 mL/min (90-130); Glucose 424 mg/dL (65-115); Magnesium 2.3 mg/dL (1.7-2.3); Osmolality Calculated 308 mOsm/kg (285-295); Phosphorus 5.8 mg/dL (2.5-4.5); Potassium 4.1 mmol/L (3.5-5.1); Sodium 136 mmol/L (136-145); Total Bilirubin 0.8 mg/dL (0.15-1.2); Total Protein 4.8 g/dL (6.6-8.7)
[2023-12-07 11:48] LABS: Lactic Sepsis W/Reflex 9.2 mmol/L (0.5-2.2)
[2023-12-07 11:49] LABS: Troponin(5th) Baseline 203 ng/L (0-15)
--- NOTE | 2023-12-07 11:51 | PC.NURSE ---
rectal temp 94.2. Dr. Gonsalez aware.
--- NOTE | 2023-12-07 11:52 | PC.PHAR ---
ACCORDING TO MED LIST-DIXON SOLOSTAR DOSAGE INCREASED FROM 8 UNITS TO 9 UNITS AT BEDTIME. 12/07/23
--- NOTE | 2023-12-07 11:56 | P.HP_ITS ---
Providers/Chief Complaint 2 Primary Care Provider: Césra Gallegos DO Chief Complaint: POST CODE History of Present Illness Matthew Barrios Jr is a 58 year old male who carries history of end-stage renal disease, type 2 diabetes recent episode of hypoglycemia was discharged last month to the longterm, patient is a Yayo lift dependent, right below-knee amputation, sacral ulcer stage IV, was brought in by EMS. Patient had a cardiac arrest during dialysis today, CPR started by the nursing staff, EMS put an eye gel for airway protection, CODE BLUE was called for PEA, Dr. Perez let the code, put a central line and intubated the patient ROSC was obtained, meanwhile I spoke with the family, spoke with his daughter and the who was in the waiting room, they stated that in case of further deterioration they would like to opt for comfort/hospice care, they would like to change his CODE STATUS to DNR/DNI Currently patient is on FiO2 100% with PEEP of 6 on 2 pressors including Levophed and vasopressin, He is hypothermic with white count 27,000 Total code duration could have been 25 minutes plus With significant leukocytosis high lactic acid we will go ahead and treat him as sepsis for now we will give him septic bolus Patient's current rhythm on telemetry is sinus tachycardia he carries history of A-fib Review of records: Patient carries history of aspiration to all food consistencies, he refused PEG tube placement, Patient will be transferred to ICU, concern for possible thromboembolic phenomenon versus aspiration causing cardiac arrest will start patient on heparin drip, Dr. Perez did notice food particle during intubation supraglottic airway Patient extremely acidotic will start bicarb drip Guarded prognosis postcardiac arrest with significant comorbidities that was conveyed to the patient's family, they seem receptive Review of Systems 2 General: Reports: ROS unobtainable due to endotracheal tube and ROS unobtainable due to medical condition Medications/Allergies Home Medications Medication Instructions Recorded Confirmed Last Taken Type atorvastatin 80 mg tablet 80 mg PO BEDTIME@10/05/20 12/07/23 12/06/23 History umeclidinium 62.5 mcg/actuation 1 inh inhalation DAILY@05/06/23 12/07/23 12/07/23 History blister powder for inhalation (Incruse Ellipta) acetaminophen 325 mg tablet 650 mg PO Q6H PRN Pain/increased 06/02/23 12/07/23 12/07/23 History temp bisacodyl 10 mg rectal suppository 10 mg TN DAILY PRN Constipation 06/02/23 12/07/23 Unknown History (Dulcolax (bisacodyl)) amiodarone 200 mg tablet 200 mg PO DAILY@09/16/23 12/07/23 12/07/23 History apixaban 2.5 mg tablet (Eliquis) 2.5 mg PO DAILY@09/16/23 12/07/23 12/07/23 History calcium acetate(phosphat bind) 667 667 mg PO TID 09/16/23 12/07/23 12/07/23 History mg capsule clopidogrel 75 mg tablet 75 mg PO DAILY@09/16/23 12/07/23 12/07/23 History docusate sodium 100 mg capsule 200 mg PO DAILY@09/16/23 12/07/23 12/07/23 History ipratropium 0.5 mg-albuterol 3 mg 3 ml inhalation Q6H PRN 09/16/23 12/07/23 10/27/23 History (2.5 mg base)/3 mL nebulization Wheezing/dyspnea soln melatonin 3 mg capsule 9 mg PO BEDTIME 09/16/23 12/07/23 12/06/23 History ondansetron 4 mg disintegrating 4 mg PO Q6H PRN Nausea/vomiting 09/16/23 12/07/23 11/23/23 History tablet oxycodone 10 mg tablet 10 mg PO Q8H PRN Pain 09/16/23 12/07/23 12/06/23 History pantoprazole 40 mg tablet,delayed 40 mg PO DAILY@09/16/23 12/07/23 12/07/23 History release polyethylene glycol 3350 17 17 g PO BID 09/16/23 12/07/23 12/07/23 History gram/dose oral powder albuterol sulfate 90 mcg/actuation 2 puff inhalation Q6H PRN Dyspnea 10/28/23 12/07/23 Unknown History aerosol inhaler calcium carbonate 200 mg calcium 500 mg PO BID PRN Heartburn 10/28/23 12/07/23 11/11/23 History (500 mg) chewable tablet collagenase clostridium histo. 250 See Rx Instructions .Route .COMPLEX 10/28/23 12/07/23 12/07/23 History unit/gram topical ointment (Santyl) vitamin B complex-vitamin C-folic 1 tab PO DAILY 10/28/23 12/07/23 12/07/23 History acid 0.8 mg tablet (Nephro-Candis) insulin lispro 100 unit/mL See Rx Instructions .Route 11/01/23 12/07/23 12/07/23 Rx subcutaneous pen .COMPLEX #15 mL insulin glargine 100 unit/mL (3 9 unit SUBCUT BEDTIME@20 11/05/23 12/07/23 12/06/23 History mL) subcutaneous pen (Lantus Solostar U-100 Insulin) collagenase clostridium histo. 250 See Rx Instructions .Route .COMPLEX 12/07/23 12/07/23 12/07/23 History unit/gram topical ointment (Santyl) collagenase clostridium histo. 250 See Rx Instructions .Route .COMPLEX 12/07/23 12/07/23 12/07/23 History unit/gram topical ointment (Santyl) insulin lispro 100 unit/mL 3 unit SUBCUT .BEFORE MEALS 12/07/23 12/07/23 12/07/23 History subcutaneous pen tamsulosin 0.4 mg capsule 0.8 mg PO BEDTIME 12/07/23 12/07/23 12/06/23 History wound dressings (Triad Wound See Rx Instructions .Route .COMPLEX 12/07/23 12/07/23 12/07/23 History Dressing paste) Allergies Allergy/AdvReac Type Severity Reaction Status Date / Time furosemide [From Lasix] Allergy Intermediate kidney Verified 11/05/23 13:23 complications walnut Allergy Unknown inknown Verified 11/05/23 13:23 morphine Allergy ADR-Halluci Verified 11/05/23 13:23 nating trazodone Allergy RASH Verified 11/05/23 13:23 PFSH Acute 2 PFSH: Medical History (Updated 12/07/23 @ 12:33 by Mitzi Gonsalez MD) Diabetic ulcer of heel Twice Daily dressing changes: Santyl Ointment 250g/u to be applied 2mm or nickel thick to wound bed with wet to dry dressing changes BID with gauze and saline. Cover with comfort foam. Diabetic ulcer of left foot: Non wound conditions of the left foot include: Left heel: 7.3x5.5x0cm stable eschar cap Left medial first metatarsal head: 1x0.5x0cm stable eschar cap Left third toe:[id number] stable eschar cap Atrial fibrillation onset 06/12 when acutely ill, paroxysmal Regurgitation of food Septic shock Pressure ulcer of sacral region, stage 4 Sacral wound: [id number] with undermining from 10 to 12 o'clock with a max of 1cm. Adherent slough to the wound bed, down to the adipose layer. 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 analgesic Chronic anticoagulation due to history of afib Hemodialysis patient Hypoglycemia Pressure ulcer of right buttock, stage 3 Pressure ulcer of left buttock, stage 3 Diabetic foot ulcer CKD (chronic kidney disease), stage V hemodialysis CAD (coronary artery disease) COPD (chronic obstructive pulmonary disease) Hyperlipidemia History of nicotine dependence Oropharyngeal dysphagia Prostatic hypertrophy Congestive heart failure mild reduction in EF, combined systolic and diastolic dysfunction Klebsiella pneumonia MRSA pneumonia NSTEMI (non-ST elevated myocardial infarction) Peripheral arterial disease Aortic stenosis Chronic kidney disease Hypertension Graves disease History of tonsillitis Surgical History Presence of coronary angioplasty implant and graft History of colostomy during hospital stay at [facility] History of amputation below knee right BKA History of cholecystectomy History of knee surgery History of eye surgery History of tonsillectomy and adenoidectomy Family History Grandmother Dementia Social History Smoking and tobacco/nicotine status: former use of tobacco/nicotine Alcohol intake: never Substance/Drug Use: never Housing: [facility] Vitals/I&O/Wt Last Vital Signs Temp 94.2 F L 12/07/23 11:54 Pulse 114 H 12/07/23 11:54 Resp 27 H 12/07/23 11:54 BP 62/42 12/07/23 11:54 Pulse Ox 100 12/07/23 11:54 O2 Del Method Mechanical Ventilation 12/07/23 11:54 FiO2 100 12/07/23 11:00 12/06/23 12/07/23 12/07/23 22:59 06:59 14:59 Intake Total 0.750 / 0.750 Balance 0.750 / 0.750 Weight last 48 hrs Weight 68.492 kg Physical Exam 2 Narrative: Clinically patient does not look fluid overloaded Currently intubated and sedated Neuroexam is limited Patient has a central line Stage IV ulcer foul-smelling discharge Scaphoid abdomen Left foot onychomycosis, Left foot ulcer Sinus tachycardia FiO2 100% on ventilator S1, S2 Data 12/07/23 11:20 12/07/23 11:20 A&P Assessment and plan (1) Cardiac arrest: (2) Aspiration pneumonia: (3) Insulin dependent type 1 diabetes mellitus: (4) Sepsis: (5) Pressure ulcer of sacral region, stage 4: (6) Atrial fibrillation: (7) Septic shock: (8) Diabetic ulcer of heel: Plan Cardiac arrest Likely etiology is thromboembolic phenomenon versus aspiration Patient has significant history of aspiration and food regurgitation D-dimer is remarkably high 7.4 Start him on heparin drip Moderate aortic valve stenosis as per recent echo EF is preserved Code ran for roughly 25 minutes plus concern for neurological injury Acute hypoxic respiratory failure postcardiac arrest Patient is intubated Will repeat ABG Severe metabolic acidosis Start bicarb drip Lactic acid is high Sepsis related to aspiration and stage IV sacral ulcer Start broad-spectrum antibiotic Patient will get septic bolus, will request blood cultures Patient is hypothermic tachycardic leukocytosis with high lactic acid end stage renal disease consulted nephro Patient will need dialysis Septic shock: Currently on 2 pressors Stage IV ulcer Would use wound care recommendations For left dependent 12 x 12 cm Patient has a diverting colostomy Left heel diabetic foot ulcer Goals of care discussed with the and his daughter if he codes again they would like to make him comfort care for now they are agreeable to continue current regimen His daughter was planning for baby shower today Guarded prognosis Review of records summary stated in HPI, spoke with the ER physician, conducted family meeting, goals of care discussed goals of care changed from full code to DNR/DNI Attestations 2 Medical Necessity Statement*: 2 midnights anticipated for management o f multiple comorbid conditions Coding Level of Care Code Critical Care >/= 30 minutes Critical care time (in minutes): 90 The high probability of a clinically significant, sudden or life threatening deterioration, as referenced in this documentation, required my full and direct attention, intervention and personal management. The critical care time shown is in addition to time spent performing any reported separately billable procedures and includes the following: [x] Data and vital sign review and interpretation [x ] Patient assessment, examination and intervention [x] Medication orders and management [x] Patient/Family updates as able [x] Care Coordination and Documentation. Diagnoses Cardiac arrest I46.9 Aspiration pneumonia J69.0 Insulin dependent type 1 diabetes mellitus E10.9 Sepsis A41.9 Pressure ulcer of sacral region, stage 4 L89.154 Atrial fibrillation I48.91 Septic shock A41.9; R65.21 Diabetic ulcer of heel E11.621; L97.409
--- NOTE | 2023-12-07 11:56 | PC.NURSE ---
Medication Delay: Vancomycin and Zosyn delayed d/t checking compatibility of sedation medications @[id number]
[2023-12-07 12:22] LABS: D Dimer 7.46 ug/mLFEU (0-0.59)
[2023-12-07] MEDS: propofol 1,000 MG/100 ML INJ 2.06 MG IV (12:25)
[2023-12-07 12:28] LABS: Procalcitonin 55.83 ng/mL (0-0.5)
--- NOTE | 2023-12-07 12:38 | PC.NURSE ---
per Dr. Perez to increase infusion rate of Vasopressin from 0.04 units/min to 0.05 units/min
--- NOTE | 2023-12-07 12:46 | PC.NURSE ---
report called to [facility] in ICU @[phone], per [facility] no further questions at end of report.
--- NOTE | 2023-12-07 12:47 | CTR_ITS ---
PROCEDURE INFORMATION: Exam: CTA Chest With Contrast Exam date and time: 12/07/2023 1:22 PM Age: 58 years old Clinical indication: Shortness of breath; Patient HX: Post code; Additional info: Elevated d dimer TECHNIQUE: Imaging protocol: Computed tomographic angiography of the chest with contrast. Exam focused on the arteries. 3D rendering (Not supervised by radiologist): MIP and/or 3D reconstructed images were created by the technologist. Radiation optimization: All CT scans at this facility use at least one of these dose optimization techniques: automated exposure control; mA and/or kV adjustment per patient size (includes targeted exams where dose is matched to clinical indication); or iterative reconstruction. Contrast material: OMNI 350; Contrast volume: 45 ml; Contrast route: INTRAVENOUS (IV); COMPARISON: CT angio chest PE protcl [id number] 09/22/2023 9:19 AM RADIATION DOSE METRICS: Total DLP (mGy-cm): 122.74 FINDINGS: Pulmonary arteries: Normal. No pulmonary emboli. Aorta: Unremarkable. No aortic aneurysm. No aortic dissection. Lungs: There is diffuse bilateral perihilar parenchymal densities present corresponding to pulmonary edema. There is right lower lobe atelectasis and or pneumonia seen in the posterior medial basilar segment. No masses. Pleural spaces: Unremarkable. No pneumothorax. No pleural effusion. Heart: Negative for right heart strain. Heavy coronary artery calcifications. No cardiomegaly. No pericardial effusion. Lymph nodes: Unremarkable. No enlarged lymph nodes. Bones/joints: Unremarkable. No acute fracture. Soft tissues: There is endotracheal tube and NG tube in place in good position. Small bilateral kidneys. There has been cholecystectomy. The liver shows diffuse lucency consistent with steatosis. CT/CT angio chest PE protcl [id number] IMPRESSION: 1. Negative for pulmonary embolism. 2. Negative for right heart strain. 3. Bilateral perihilar pulmonary edema. 4. Right lower lobe pneumonia and / or atelectasis . 5. Heavy coronary artery calcifications. 6. NG tube and endotracheal tube are in good position. 7. Cholecystectomy, and hepatic steatosis
--- NOTE | 2023-12-07 12:48 | PC.NURSE ---
pt arrived to ED via [facility] from Dialysis clinic. 1045: PEA on monitor, no pulse, CPR started 1046: x1 epi 1048: x2 calcium chloride 1049: x1 bicarb 1050: x1 epi 1050: pulse check, no pulse 1051: CPR resumed 1053: pulse check, no pulse 1053: CPR resumed 1100: pulse check, confirmed pulse, sinus tach on monitor * see nurse note about medication administration through I/O *
--- NOTE | 2023-12-07 12:53 | PC.NURSE ---
glucose on arrival was 370 via fingerstick
[2023-12-07 13:14] LABS: Reflex Lactate Order REFLEX LACTIC ORDERD; Thyroid Stimulating Hormone 1.46 uIU/mL (0.27-4.20)
--- NOTE | 2023-12-07 13:15 | P.CONIM_ITS ---
Providers/Reason For Consult 2 Consulting Physician/Specialty*: Kellie Ruffni DO, telenephrology Reason for Consult*: ESRD Requesting Physician: Mitzi Gonsalez MD Attending Physician: Mitzi Gonsalez MD Primary Care Provider: César Gallegos DO History of Present Illness History of Present Illness Matthew Barrios Jr is a 58 year old male experienced cardiac arrest during outpatient HD today. CPR reported for 25 . Intubated, on pressors, remains profoundly hypotensive Review of Systems 2 General: Reports: ROS unobtainable due to endotracheal tube Medications/Allergies Home Medications Medication Instructions Recorded Confirmed Last Taken Type atorvastatin 80 mg tablet 80 mg PO BEDTIME@10/05/20 12/07/23 12/06/23 History umeclidinium 62.5 mcg/actuation 1 inh inhalation DAILY@05/06/23 12/07/23 12/07/23 History blister powder for inhalation (Incruse Ellipta) acetaminophen 325 mg tablet 650 mg PO Q6H PRN Pain/increased 06/02/23 12/07/23 12/07/23 History temp bisacodyl 10 mg rectal suppository 10 mg MA DAILY PRN Constipation 06/02/23 12/07/23 Unknown History (Dulcolax (bisacodyl)) amiodarone 200 mg tablet 200 mg PO DAILY@09/16/23 12/07/23 12/07/23 History apixaban 2.5 mg tablet (Eliquis) 2.5 mg PO DAILY@09/16/23 12/07/23 12/07/23 History calcium acetate(phosphat bind) 667 667 mg PO TID 09/16/23 12/07/23 12/07/23 History mg capsule clopidogrel 75 mg tablet 75 mg PO DAILY@09/16/23 12/07/23 12/07/23 History docusate sodium 100 mg capsule 200 mg PO DAILY@09/16/23 12/07/23 12/07/23 History ipratropium 0.5 mg-albuterol 3 mg 3 ml inhalation Q6H PRN 09/16/23 12/07/23 10/27/23 History (2.5 mg base)/3 mL nebulization Wheezing/dyspnea soln melatonin 3 mg capsule 9 mg PO BEDTIME 1112/07/23 12/06/23 History ondansetron 4 mg disintegrating 4 mg PO Q6H PRN Nausea/vomiting 09/16/23 12/07/23 11/23/23 History tablet oxycodone 10 mg tablet 10 mg PO Q8H PRN Pain 09/16/23 12/07/23 12/06/23 History pantoprazole 40 mg tablet,delayed 40 mg PO DAILY@07 09/16/23 12/07/23 12/07/23 History release polyethylene glycol 3350 17 17 g PO BID 09/16/23 12/07/23 12/07/23 History gram/dose oral powder albuterol sulfate 90 mcg/actuation 2 puff inhalation Q6H PRN Dyspnea 10/28/23 12/07/23 Unknown History aerosol inhaler calcium carbonate 200 mg calcium 500 mg PO BID PRN Heartburn 10/28/23 12/07/23 11/11/23 History (500 mg) chewable tablet collagenase clostridium histo. 250 See Rx Instructions .Route .COMPLEX 10/28/23 12/07/23 12/07/23 History unit/gram topical ointment (Santyl) vitamin B complex-vitamin C-folic 1 tab PO DAILY 10/28/23 12/07/23 12/07/23 History acid 0.8 mg tablet (Nephro-Candis) insulin lispro 100 unit/mL See Rx Instructions .Route 11/01/23 12/07/23 12/07/23 Rx subcutaneous pen .COMPLEX #15 mL insulin glargine 100 unit/mL (3 9 unit SUBCUT BEDTIME@20 11/05/23 12/07/23 12/06/23 History mL) subcutaneous pen (Lantus Solostar U-100 Insulin) collagenase clostridium histo. 250 See Rx Instructions .Route .COMPLEX 12/07/23 12/07/23 12/07/23 History unit/gram topical ointment (Santyl) collagenase clostridium histo. 250 See Rx Instructions .Route .COMPLEX 12/07/23 12/07/23 12/07/23 History unit/gram topical ointment (Santyl) insulin lispro 100 unit/mL 3 unit SUBCUT .BEFORE MEALS 12/07/23 12/07/23 12/07/23 History subcutaneous pen tamsulosin 0.4 mg capsule 0.8 mg PO BEDTIME 12/07/23 12/07/23 12/06/23 History wound dressings (Triad Wound See Rx Instructions .Route .COMPLEX 12/07/23 12/07/23 12/07/23 History Dressing paste) Allergies Allergy/AdvReac Type Severity Reaction Status Date / Time furosemide [From Lasix] Allergy Intermediate kidney Verified 11/05/23 13:23 complications walnut Allergy Unknown inknown Verified 11/05/23 13:23 morphine Allergy ADR-Halluci Verified 11/05/23 13:23 nating trazodone Allergy RASH Verified 11/05/23 13:23 Current Medications Generic Name Dose Route Start Last Admin Trade Name Freq PRN Reason Stop Dose Admin norepinephrine 4 mg in 250 mls @ 0 mls/hr 12/07/23 11:15 12/07/23 12:06 Levophed IV 14 mcg/min .Q0M KIM 52.5 mls/hr Titration Protocol Per Protocol Midazolam HCl 100 mg in 100 mls @ 0 mls/hr 12/07/23 11:15 12/07/23 12:05 Versed IV 4 mg/hr .Q0M KIM 4 mls/hr Titration Protocol Per Protocol Fentanyl 1,000 mcg in 100 mls @ 0 mls/hr 12/07/23 11:15 12/07/23 12:05 Sublimaze IV 75 mcg/hr .Q0M KIM 7.5 mls/hr Titration Protocol Per Protocol Vasopressin 40 unit in 100 mls @ 0 mls/hr 12/07/23 11:30 12/07/23 12:37 Vasostrict IV 0.05 unit/min .Q0M KIM 7.5 mls/hr Titration Protocol Per Protocol Propofol 1,000 mg in 100 mls @ 0 mls/hr 12/07/23 12:15 12/07/23 12:37 Diprivan IV 10 mcg/kg/min .Q0M KIM 4.11 mls/hr Titration Protocol Per Protocol PFSH Acute 2 PFSH: Medical History Diabetic ulcer of heel Twice Daily dressing changes: Santyl Ointment 250g/u to be applied 2mm or nickel thick to wound bed with wet to dry dressing changes BID with gauze and saline. Cover with comfort foam. Diabetic ulcer of left foot: Non wound conditions of the left foot include: Left heel: 7.3x5.5x0cm stable eschar cap Left medial first metatarsal head: 1x0.5x0cm stable eschar cap Left third toe:[id number] stable eschar cap Atrial fibrillation onset 06/12 when acutely ill, paroxysmal Regurgitation of food Septic shock Pressure ulcer of sacral region, stage 4 Sacral wound: [id number] with undermining from 10 to 12 o'clock with a max of 1cm. Adherent slough to the wound bed, down to the adipose layer. 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 Chronic anticoagulation due to history of afib Hemodialysis patient Hypoglycemia Pressure ulcer of right buttock, stage 3 Pressure ulcer of left buttock, stage 3 Diabetic foot ulcer CKD (chronic kidney disease), stage V hemodialysis CAD (coronary artery disease) COPD (chronic obstructive pulmonary disease) Hyperlipidemia History of nicotine dependence Oropharyngeal dysphagia Prostatic hypertrophy Congestive heart failure mild reduction in EF, combined systolic and diastolic dysfunction Klebsiella pneumonia MRSA pneumonia NSTEMI (non-ST elevated myocardial infarction) Peripheral arterial disease Aortic stenosis Chronic kidney disease Hypertension Graves disease History of tonsillitis Surgical History Presence of coronary angioplasty implant and graft History of colostomy -08/12 during hospital stay at [facility] History of amputation below knee right BKA History of cholecystectomy History of knee surgery History of eye surgery History of tonsillectomy and adenoidectomy Family History Grandmother Dementia Social History Smoking and tobacco/nicotine status: former use of tobacco/nicotine Alcohol intake: never Substance/Drug Use: never Housing: Fdc Vitals/I&O/Wt Last Vital Signs Temp 94.2 F L 12/07/23 11:54 Pulse 107 H 12/07/23 12:52 Resp 27 H 12/07/23 12:52 BP 104/53 12/07/23 12:52 Pulse Ox 100 12/07/23 12:52 O2 Del Method Mechanical Ventilation 12/07/23 11:54 FiO2 100 12/07/23 11:00 12/06/23 12/07/23 12/07/23 22:59 06:59 14:59 Intake Total 33.154 / 33.154 Balance 33.154 / 33.154 Weight last 48 hrs Weight 68.492 kg Data 12/07/23 11:20 12/07/23 11:20 Other Labs: lactic acid 9.2, + D-dimer albumin 1.9, Ca 10.1 Micro: Microbiology 12/07/23 11:20 Blood Culture - Preliminary Blood SPECIMEN COLLECTED CXR: Radiologist's impression: 1. Left lower lobe alveolar pneumonia 2. Right central line at the caval atrial junction. 3. Left central line in the SVC. 4. Endotracheal tube is above the juan diego. 5. NG tube is in the stomach ABG Interpretation 1: 12/07/23 10:55 ABG pH 7.14 L* ABG pCO2 50.4 H ABG pO2 143.0 H ABG HCO3 17.0 L ABG O2 Saturation 97.6 ABG Base Excess -11.7 L Other data: seen via telemedicine with assistance of RN at bedside A&P Assessment and plan (1) ESRD (end stage renal disease): Plan 1. ESRD, HD T// 2. cardiogenic shock 3. Lactic acidosis, pneumonia, possible sepsis 4. Respiratory acidosis 5. Anemia Recommend: No indication for dialysis today. Panculture, broad spectrum antibiotics, consider transfusion pRBC, optimize ventilation, repeat ABG. Prognosis grave. Consult Attestations 2 Medical Necessity Statement: see above Time Spent in Patient Care: 16 - 35 minutes Coding Level of Care Code Acute Code for Chg Fwd Diagnoses ESRD (end stage renal disease) N18.6
[2023-12-07 13:31] LABS: Influenza A by IFA negative (Negative); Influenza B by IFA negative (Negative)
[2023-12-07] MEDS: iohexol 350 mg/mL 500 mL Btl (per mL) IV (13:31)
--- NOTE | 2023-12-07 13:37 | W.ED.GENADLT ---
HPI - General Adult General: Chief complaint: Cardiac Arrest/CPR Stated complaint: POST CODE Time Seen by Provider: 12/07/23 10:51 Source: EMS Mode of arrival: EMS History of Present Illness: 58-year-old male presents to the emergency room post code with an Igel in place shortly after arrival here he was found to be in PEA CPR was restarted and ROSC was achieved a second time. He is a dialysis patient with a tunneled dialysis cath in place he was on his way to receive dialysis today when he collapsed he was down about 20 minutes receiving bystander CPR before EMS arrived and was able to achieve ROSC. No reported chest pain or shortness of breath prior to this episode he did receive his dialysis 2 days ago as scheduled he did not receive any dialysis today Onset (ago): minute(s) Review of Systems General: Reports: ROS unobtainable due to endotracheal tube and ROS unobtainable due to medical condition [facility] ED PFSH: Medical History Diabetic ulcer of heel Twice Daily dressing changes: Santyl Ointment 250g/u to be applied 2mm or nickel thick to wound bed with wet to dry dressing changes BID with gauze and saline. Cover with comfort foam. Diabetic ulcer of left foot: Non wound conditions of the left foot include: Left heel: 7.3x5.5x0cm stable eschar cap Left medial first metatarsal head: 1x0.5x0cm stable eschar cap Left third toe:[id number] stable eschar cap Atrial fibrillation onset 06/12 when acutely ill, paroxysmal Regurgitation of food Septic shock Pressure ulcer of sacral region, stage 4 Sacral wound: [id number] with undermining from 10 to 12 o'clock with a max of 1cm. Adherent slough to the wound bed, down to the adipose layer. 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 Presence of colostomy senior care (current) use of opiate analgesic Chronic anticoagulation due to history of afib Hemodialysis patient Hypoglycemia Pressure ulcer of right buttock, stage 3 Pressure ulcer of left buttock, stage 3 Diabetic foot ulcer CKD (chronic kidney disease), stage V hemodialysis CAD (coronary artery disease) COPD (chronic obstructive pulmonary disease) Hyperlipidemia History of nicotine dependence Oropharyngeal dysphagia Prostatic hypertrophy Congestive heart failure mild reduction in EF, combined systolic and diastolic dysfunction Klebsiella pneumonia MRSA pneumonia NSTEMI (non-ST elevated myocardial infarction) Peripheral arterial disease Aortic stenosis Chronic kidney disease Hypertension Graves disease History of tonsillitis Surgical History Presence of coronary angioplasty implant and graft History of colostomy during hospital stay at [facility] History of amputation below knee right BKA History of cholecystectomy History of knee surgery History of eye surgery History of tonsillectomy and adenoidectomy Family History Grandmother Dementia Social History Smoking and tobacco/nicotine status: former use of tobacco/nicotine Alcohol intake: never Substance/Drug Use: never Housing: Long-Term Physical Exam HENMT: COMMON NORMALS: normocephalic, atraumatic and hearing grossly normal bilaterally HEAD & SCALP: normocephalic and atraumatic Resp: COMMON NORMALS: normal respiratory effort, No retractions, No use of accessory muscles and clear to auscultation bilaterally AUSCULTATION: clear to auscultation bilaterally Cardio: COMMON NORMALS: regular rate, regular rhythm and No murmurs present (Cardio) RATE: regular rate RHYTHM: regular rhythm GI: COMMON NORMALS: Soft to palpation and No hepatosplenomegaly present AUSCULTATION: Yes normoactive bowel sounds PALPATION: Yes Soft to palpation, No Tenderness to palpation present (GI), No Guarding due to palpation present (GI) and Yes No hepatosplenomegaly present Extremity: OTHER: Right leg below the knee amputation IOM placed infiltrated when removed it is not seated in the bone. Foul-smelling pressure ulcers on the left foot. Skin: OTHER: Tunneling sacral ulcers Procedures Central Line Placement Left SC: Time Out Performed: Yes Patient Placed on Monitor/Pulse Ox: Yes MD Prep: mask, gown and gloves Central Line Prep: Chlorhexidine scrub Ultrasound Used for Placement: Yes Central Line Lumen Inserted: triple Post Procedure: sutured in place, good blood return, all ports aspirated, flushed, capped and sterile dressing applied Post Procedure X-Ray: tip of catheter in good position and no pneumothorax seen Patient Tolerated Procedure: well Complications: none Intubation Time out performed: Yes ET Tube Size: 8 ET Tube Uncuffed: No Tube Secured Depth (cm): 22 Tube Secured Location: teeth Tube Placement Confirmation: visualized tube passing through cords, equal breath sounds bilaterally, no breath sounds over epigastrium and confirmation by capnometry Patient Tolerated Procedure: well Intubation Complications: none Course Vital Signs: Vital signs: Vital Signs Temperature 96.9 F L 12/07/23 17:30 Pulse Rate 0 L 12/07/23 19:45 Respiratory Rate 27 H 12/07/23 18:21 Blood Pressure 52/34 12/07/23 19:15 Pulse Oximetry 93 12/07/23 19:15 Oxygen Delivery Me thod Mechanical Ventil ation 12/07/23 19:15 Fraction of Inspir ed Oxygen 80 12/07/23 19:15 MDM - General Adult Medical Decision Making On arrival patient was being ventilated with a supraglottic airway. Shortly after arrival was noted he was in PEA CPR started he was given bicarb calcium chloride and epi however I am not sure how much of this he actually got into the IO that we are using was later found to have infiltrated we were able to achieve ROSC. During CPR he was intubated with fiberoptic scope. There was obvious gastric contents below the cords which were suctioned. Dr. Gonsalez who is well aware of this patient seen him in the past assisted during his initial stabilization. He was started on pressors fentanyl and Versed. He was initially started on Levophed and then added vasopressin. He also required propofol to maintain adequate sedation. Central line was started in the left subclavian began vein on the first attempt. Orders written for admission. Lab Data 12/07/23 11:20 12/07/23 11:20 Radiology Impressions Chest X-Ray 12/07/23 11:24 IMPRESSION: 1. Left lower lobe alveolar pneumonia 2. Right central line at the caval atrial junction. 3. Left central line in the SVC. 4. Endotracheal tube is above the juan diego. 5. NG tube is in the stomach Chest CTA 12/07/23 12:47 IMPRESSION: 1. Negative for pulmonary embolism. 2. Negative for right heart strain. 3. Bilateral perihilar pulmonary edema. 4. Right lower lobe pneumonia and / or atelectasis . 5. Heavy coronary artery calcifications. 6. NG tube and endotracheal tube are in good position. 7. Cholecystectomy, and hepatic steatosis Laboratory Results WBC 27.88 10^3/uL (3.29-11.43) H 12/07/23 11:20 RBC 2.39 10^6/uL (3.85-5.65) L 12/07/23 11:20 Hgb 7.30 g/dL (11.27-16.99) L 12/07/23 11:20 Hct 25.5 % (37-53) L 12/07/23 11:20 MCV 106.7 fl (82-101) H 12/07/23 11:20 MCH 30.5 pg (27-33) 12/07/23 11:20 MCHC 28.6 g/dL (30-55) L 12/07/23 11:20 RDW 17.2 % (12.1-15.1) H 12/07/23 11:20 Plt Count 331 10^3/cmm (157-399) 12/07/23 11:20 MPV 9.6 fL (7.4-10.4) 12/07/23 11:20 Neut % (Auto) 87.9 % 12/07/23 11:20 Lymph % (Auto) 4.3 % 12/07/23 11:20 Valley % (Auto) 2.5 % 12/07/23 11:20 Eos % (Auto) 0.1 % 12/07/23 11:20 Baso % (Auto) 0.3 % 12/07/23 11:20 Neut # (Auto) 24.49 10^3/uL (1.8-7.7) H 12/07/23 11:20 Lymph # (Auto) 1.2 10^3/uL (0.8-4.8) 12/07/23 11:20 Valley # (Auto) 0.7 10^3/uL (0.2-0.9) 12/07/23 11:20 Eos # (Auto) 0.0 10^3/uL (0.0-0.8) 12/07/23 11:20 Baso # (Auto) 0.1 10^3/uL (0.0-0.1) 12/07/23 11:20 Nucleated RBC % (auto) 0.1 % 12/07/23 11:20 Nucleated RBCs # 0.0 /100WBC 12/07/23 11:20 D-Dimer 7.46 ug/mLFEU (0-0.59) H 12/07/23 11:20 Specimen Type Arterial 12/07/23 10:55 Sample Site Radial, left 12/07/23 10:55 ABG pH 7.14 (7.35-7.45) L* 12/07/23 10:55 ABG pCO2 50.4 mmHg (35-45) H 12/07/23 10:55 ABG pO2 143.0 mmHg (80.0-100.0) H 12/07/23 10:55 ABG PO2/FiO2 Ratio 0 12/07/23 10:55 ABG HCO3 17.0 mmol/L (22-26) L 12/07/23 10:55 ABG O2 Saturation 97.6 12/07/23 10:55 ABG Base Excess -11.7 mmol/L (-2.0-2.0) L 12/07/23 10:55 Prashant Test Pos 12/07/23 10:55 A-a O2 Gradient 67.0 mmHg (5-10) H 12/07/23 10:55 Hematocrit 32.1 % (42-52) L 12/07/23 10:55 Hgb O2 Saturation 96.5 % (95-100) 12/07/23 10:55 Carboxyhemoglobin 0.2 %THgb (0.4-20.1) L 12/07/23 10:55 Methemoglobin 0.9 % (0.4-1.5) 12/07/23 10:55 Total Hemoglobin 10.5 g/dL (14-18) L 12/07/23 10:55 Sodium 138.0 mmol/L (131-143) 12/07/23 10:55 Potassium 3.8 mmol/L (3.5-5.0) 12/07/23 10:55 Glucose 398.0 mg/dL (70-115) H 12/07/23 10:55 Ionized Calcium 1.7 mmol/L (1.1-1.4) H 12/07/23 10:55 O2 Delivery Device Vent 12/07/23 10:55 FiO2 100.0 % 12/07/23 10:55 Tidal Volume 0.45 12/07/23 10:55 PEEP 5.0 cmH20 12/07/23 10:55 Director Community Organization ID Cak 12/07/23 10:55 Sodium 136 mmol/L (136-145) 12/07/23 11:20 Potassium 4.1 mmol/L (3.5-5.1) 12/07/23 11:20 Chloride 94 mmol/L (98-107) L 12/07/23 11:20 Carbon Dioxide 16 mmol/L (22-29) L 12/07/23 11:20 Anion Gap 30.1 (5-19) H 12/07/23 11:20 BUN 34 mg/dL (6-20) H 12/07/23 11:20 Creatinine 3.3 mg/dL (0.7-1.2) H 12/07/23 11:20 GFR Calculation 19.5 mL/min (90-130) L 12/07/23 11:20 Glucose 424 mg/dL (65-115) H 12/07/23 11:20 POC Glucose 370 mg/dL (70-110) H 12/07/23 10:58 Calculated Osmolality 308 mOsm/kg (285-295) H 12/07/23 11:20 Lactic Acid 9.2 mmol/L (0.5-2.2) H* 12/07/23 11:20 Calcium 10.1 mg/dL (8.5-10.5) 12/07/23 11:20 Phosphorus 5.8 mg/dL (2.5-4.5) H 12/07/23 11:20 Magnesium 2.3 mg/dL (1.7-2.3) 12/07/23 11:20 Total Bilirubin 0.8 mg/dL (0.15-1.2) 12/07/23 11:20 AST 75 U/L (0-40) H 12/07/23 11:20 ALT 38 U/L (0-41) 12/07/23 11:20 Alkaline Phosphatase 265 U/L (40-130) H 12/07/23 11:20 Troponin T Baseline 203 ng/L (0-15) H* 12/07/23 11:20 Total Protein 4.8 g/dL (6.6-8.7) L 12/07/23 11:20 Albumin 1.3 g/dL (3.5-5.2) L 12/07/23 11:20 Globulin 3.5 g/dL (1.3-4.6) 12/07/23 11:20 Procalcitonin 55.83 ng/mL (0-0.5) H 12/07/23 11:20 TSH 1.46 uIU/mL (0.27-4.20) 12/07/23 11:20 All radiology interpretation(s) finalized by discharge Critical Care Time Critical Care Time: Critical Care Time: Yes Total Critical Care Time: 120 Attestation: The high probability of a clinically significant, sudden or life threatening deterioration of the patient's cardiovascular respiratory renal system(s) required my full and direct attention, intervention and personal management. The critical care time is as shown. This time is in addition to time spent performing any reported procedures but includes the following: [x] Data and vital sign review and interpretation [x] Patient assessment, examination and intervention [x] Documentation [x] Medication orders and management Discharge Plan Discharge Patient Disposition: Admitted As Inpatient Admit Provider: Mitzi Gonsalez Clinical Impression: Cardiac arrest, Pressure ulcer of sacral region, stage 4, Septic shock, Atrial fibrillation, Diabetic ulcer of heel, Aspiration pneumonia, Insulin dependent type 1 diabetes mellitus Condition: Stable Coding Level of Care Code ED Dinkey Brakeman for Gregorio Huffman
--- NOTE | 2023-12-07 14:00 | PC.NURSE ---
recieved from er post code on vent at this time central line left chest and dialysis cath right chest has colostomy left side of abdomen hard stool noted multiple wound /decubs on hips and sacram .. also right amptee foot noted wounds /decubs on left foot x2 ,, foul oder from all noted on multiple pressures with hypotension remain no purposful response at this time .extremities cool to touch and cyanotic
[2023-12-07 14:09] LABS: Troponin 5 2HR 187.3 ng/L (0-15); Troponin 5 2HR Delta -15.7 ABS# (0-10)
[2023-12-07] MEDS: sodium bicarbonate 150 MEQ in dextrose 5% 1,000 ML 100 MEQ IV (14:43)
--- NOTE | 2023-12-07 14:43 | ECG_ITS ---
[facility] Test Date: 2023-12-07 Pat Name: Matthew Barrios Department: Room: ICU07 Gender: Male Kitchen Chef: : 1965 Requested By: Dom Haji Order Number: [id number] Yuliana MD: Morro Weston M.D. Measurements Intervals [place] Rate: 115 P: 85 NC: 154 QRS: -76 QRSD: 88 T: 112 QT: 309 QTc: 429 Interpretive Statements SINUS TACHYCARDIA POSSIBLE ANTERIOR MYOCARDIAL INFARCTION , PROBABLY OLD [30 ms Q WAVE IN V3/V4, OR R < 0.2 mV IN V4] INFERIOR MYOCARDIAL INFARCTION , PROBABLY OLD [40+ ms Q WAVE AND/OR ST/T ABNORMALITY IN II/aVF] Compared to ECG 12/07/2023 10:59:02 No significant changes Electronically Signed On 12-08-2023 7:50:58 PHARMACOVIGILANCE SCIENTIST by Morro Weston M.D. [id number]
[2023-12-07 14:44] LABS: ABG PCO2 36.3 mmHg (35-45); ABG PH Result 7.37 (7.35-7.45); Arterial Blood Gas Hematocrit 23.8 % (42-52); Base Excess ABG -3.9 mmol/L (-2.0-2.0); Blood Gas Allen Test Pos; Blood Gas Operator Identificat CAK; Blood Gas Sample Site Radial, left; Blood Gas Sample Type Arterial; Blood Gas Tidal Volume 0.45; Oxygen Device VENT; PO2 FiO2 Ratio Arterial Blood 0
[2023-12-07] MEDS: vancomycin 750 MG in sodium chloride 0.9% 250 ML 250 MG IV (14:52)
[2023-12-07 14:59] LABS: Adenovirus Not Detected (NOT DETECT); Chlamydia Pneumoniae Not Detected (NOT DETECT); Coronavirus 229E,HKU1,NL63,OC4 Not Detected (NOT DETECT); Human Metapneumovirus Not Detected (NOT DETECT); Human Rhinovirus/Enterovirus Not Detected (NOT DETECT); Influenza A Not Detected (NOT DETECT); Influenza A H1 Not Detected (NOT DETECT); Influenza A H1-2009 Not Detected (NOT DETECT); Influenza A H3 Not Detected (NOT DETECT); Influenza B Not Detected (NOT DETECT); Mycoplasma Pneumoniae Not Detected (NOT DETECT); Parainfluenza Virus Type 1 Not Detected (NOT DETECT); Parainfluenza Virus Type 2 Not Detected (NOT DETECT); Parainfluenza Virus Type 3 Not Detected (NOT DETECT); Parainfluenza Virus Type 4 Not Detected (NOT DETECT); Respiratory Syncytial Virus A Not Detected (NOT DETECT); Respiratory Syncytial Virus B Not Detected (NOT DETECT); SARS-COV-2 Not Detected (NOT DETECT)
[2023-12-07] MEDS: EPINEPHrine 2.5 MG in sodium chloride 0.9% 250 ML 41.51 MG IV (15:10)
[2023-12-07] MEDS: ipratropium-albuterol 3 mL Neb INHALATION (15:39)
[2023-12-07] MEDS: norepinephrine 4 MG/250 ML BAG 67.5 MG IV ×2 (15:46→18:43)
[2023-12-07] MEDS: piperacillin-tazobactam 3.375 GM in sodium chloride 0.9% (plus) 50 ML IV (15:59)
--- NOTE | 2023-12-07 16:00 | PC.NURSE ---
unable to obtain enough access to start transfusion of blood even with central line due to several medications and compatablity pending ct scan heparin gtt pending also called for possible aother line bicarb gtt started
--- NOTE | 2023-12-07 16:52 | PC.NURSE ---
family at bedside aware of status blood pressure severly low at this time all pressors maxed out now to monitor and comfort
--- NOTE | 2023-12-07 17:24 | ECG_ITS ---
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 Measurements Intervals [place] Rate: 129 P: 88 SC: 176 QRS: -76 QRSD: 88 T: 114 QT: 271 QTc: 397 Interpretive Statements SINUS TACHYCARDIA POSSIBLE ANTERIOR MYOCARDIAL INFARCTION , PROBABLY OLD [30 ms Q WAVE IN V3/V4, OR R < 0.2 mV IN V4] Possible inferior wall myocardial infarction, probably old WARNING: DATA QUALITY MAY AFFECT INTERPRETATION Compared to ECG 12/07/2023 14:43:38 No significant changes Electronically Signed On 12-08-2023 7:52:09 BROACH OPERATOR by Morro Weston M.D. [email or web address]
--- NOTE | 2023-12-07 17:35 | PC.NURSE ---
picc staff here to insert line at this time is unable to because pressure too low and very minimal perfusion still unable to transfuse blood and heparin gtt at this time she will check back in short time
[2023-12-07] MEDS: pantoprazole 40 mg SDV IVP (18:35)
--- NOTE | 2023-12-07 20:32 | PC.NURSE ---
Addendum entered by Bonny Kumar RN 12/07/23 21:05: verified with Winsome Hector RN Original Note: TOD 1927: Two nurse verification of absence of heart sounds done w/ JEFFERSON [address] Dr. Notified @1937 Pamela, Educational Technology Coordinator notified @1929 MTS called @1935. [facility] called back @2013. Aysha Angeal reported pt is not a candidate. Referal #[id number] Post-Mortum Care preformed @2014 Home Selected: Mirtha Medications Wasted w/ Bonny Kumar RN: Propofol-72ml Versed- 69ml Fentanyl- 43 Vaso maxed out per protocol on arrival to shift @1899, MAR edited for 1899 to reflect this.
--- NOTE | 2023-12-07 21:29 | PC.NURSE ---
Addendum entered by Alicia Hector RN 12/07/23 22:56: This RN called [facility] @1777. [facility] requested that the body not be transferred to the home at this time. Bonny, Charge Nurse aware. Pamela, Director Clinical Operations aware. Original Note: [facility]: [facility] called unit @2121. Body not released at this time. Eye prep done @2129- drop NS bilateral eyes, HOB 30 degrees. Spoke w/ Yesenia Haji, who states she will call the unit back with updates.
--- NOTE | 2023-12-07 21:50 | P.DES_ITS ---
Discharge Providers DDS Date of Admission: 12/07/23 11:59 Date Summary Completed: 12/07/23 Attending Provider at Admission: Mitzi Gonsalez MD Time of : 19:28 Attending Provider at Discharge: Mitzi Gonsalez MD Primary Care Provider: DO LIANG Garcia Diagnoses Hospital Diagnoses (1) ESRD (end stage renal disease): Reason for Visit Reason for Visit POST CODE Summary Date and Time of Date of : 12/07/23 Time of : 19:28 Summary Summary: 58-year-old male who was brought in from dialysis center with CODE BLUE, patient lost consciousness and pulse during dialysis, bystander nurses started CPR, yes arrived there was roughly timeline of about 20 minutes before he was seen in the ER, patient was intubated by Dr. Perez, central line was placed he was on 2 pressors, family made him DNR/DNI, he was admitted to the ICU, he was treated as septic shock, non-STEMI he had high D-dimer CTA chest did not show PE, source of septic shock was necrotic wound on his back and pneumonia patient was at risk of chronic aspiration with all food consistencies. Additional Data Confirmation of as documented by pronouncing clinician: no pulse, no respirations and pupils fixed and dilated Family: at bedside Additional persons at bedside: nursing staff, social service manager and readers' advisory service librarian Attending/PCP notified?: Attending notified Was code activated?: No Advance directives?: Yes Hospice patient?: Yes Discharge Plan Discharge Patient Disposition: At Medical Facility Condition: Stable Prescriptions: No Action atorvastatin 80 mg tablet 80 mg PO BEDTIME@19 Incruse Ellipta 62.5 mcg/actuation blister with device 1 inh INHALATION DAILY@07 ipratropium-albuterol 0.5 mg-3 mg(2.5 mg base)/3 mL solution for nebulization 3 ml INHALATION Q6H PRN (Reason: Wheezing/dyspnea) amiodarone 200 mg Tablet 200 mg PO DAILY@07 clopidogrel 75 mg tablet 75 mg PO DAILY@07 pantoprazole 40 mg Tablet,Delayed Release (Dr/Ec) 40 mg PO DAILY@07 docusate sodium 100 mg Capsule 200 mg PO DAILY@07 polyethylene glycol 3350 17 gram/dose Powder 17 g PO BID ondansetron 4 mg tablet,disintegrating 4 mg PO Q6H PRN (Reason: Nausea/vomiting) calcium acetate(phosphat bind) 667 mg capsule 667 mg PO TID oxycodone 10 mg tablet 10 mg PO Q8H PRN (Reason: Pain) Eliquis 2.5 mg tablet 2.5 mg PO DAILY@07 melatonin 3 mg Capsule 9 mg PO BEDTIME calcium carbonate 200 mg calcium (500 mg) Tablet,Chewable 500 mg PO BID PRN (Reason: Heartburn) Nephro-Candis 0.8 mg Tablet 1 tab PO DAILY albuterol sulfate 90 mcg/actuation Hfa Aerosol Inhaler 2 puff INHALATION Q6H PRN (Reason: Dyspnea) Santyl 250 unit/gram ointment See Rx Instructions .ROUTE .COMPLEX Rx Instructions: apply sacrum cleanse with ns, apply nickel thick santyl t owound bed pack with ns rolled damp gauze (kerlex) and cover with bordered foam and secure with tape every shift insulin lispro 100 unit/mL Insulin Pen See Rx Instructions .ROUTE .COMPLEX Qty: 15 3RF Rx Instructions: sliding scale before meals and at bedtime 141-180=2 units 181-220=4 units 221-260=6 units 261-300=8 units 301-350=10 units 351-400=12 units 401-450=14 units if blood sugar is greater than 450 give 16 units acetaminophen 325 mg Tablet 650 mg PO Q6H PRN (Reason: Pain/increased temp) Rx Instructions: May give rectally if necessary bisacodyl [Dulcolax (bisacodyl)] 10 mg Suppository 10 mg [place] DAILY PRN (Reason: Constipation) Rx Instructions: if no results from mom insulin glargine [Lantus Solostar U-100 Insulin] 100 unit/mL (3 mL) insulin pen 9 unit SUBCUT BEDTIME@20 insulin lispro 100 unit/mL insulin pen 3 unit SUBCUT .BEFORE MEALS [employer] Wound Dressing Paste See Rx Instructions .ROUTE .COMPLEX Rx Instructions: APPLY EVERY SHIFT 1 APLICATION TOPICALLY TO SCROTUM. CLEANSE WITH BABY OIL AND GAUZE. APPLY TIRAD AND VISHNU. tamsulosin 0.4 mg capsule 0.8 mg PO BEDTIME Santyl 250 unit/gram Ointment See Rx Instructions .ROUTE .COMPLEX Rx Instructions: APPLY TOPICALLY EVERY SHIFT TO LEFT LATERAL ANKLE. CLEANSE WITH NS AND GAUZE, APPLY TO WOUND BED ONLY. COVER WITH NON-BORDERED FOAM. WRAP WITH KERLIX AND SECURE WITH TAPE. Santyl 250 unit/gram Ointment See Rx Instructions .ROUTE .COMPLEX Rx Instructions: APPLY TOPICALLY EVERY SHIFT TO LEFT MEDIAL FOOT. CLEANSE WITH NS AND GAUZE. APPLY TO WOUND BED ONLY. COVER WITH NON-BORDERED FOAM. WRAP WITH KERLIX AND SECURE WITH TAPE. Patient Instructions: Opioid Safety Probable Cause of Probable cause of : Cardiac arrest DS Attestations Time Spent in /Discharge Care*: less than 30 min Quality - AMI: AMI present?: No Quality - Stroke: CVA present?: No Symptom Onset Unknown: No Quality - VTE: VTE present?: No Deep Vein Thrombosis/Pulmonary Embolism Present on Admission: No Coding Level of Care Code Acute Code for Chg Fwd Diagnoses ESRD (end stage renal disease) N18.6
--- NOTE | 2023-12-08 00:22 | PC.NURSE ---
Home: Directed by Media Planner / Buyer and Charge Nurse that Saving site called unit, pt is still on hold but is clear to be moved to the home. [facility] called @[phone]
[2023-12-08 01:22] VITALS: PULSE 0; RESP 0; O2SAT 0
--- NOTE | 2023-12-08 01:24 | PC.NURSE ---
Home: Pt left w/ personal from [facility] @[phone].
== END 2023-12-08 01:15 | disposition expired | DRG 871 ==
LOC: ER 10:58 → ICU 12:16
PROVIDERS: Admitting Provider Internal Medicine; Emergency Provider Family Medicine; PCP Internal Medicine; Visit Provider Internal Medicine
DX: A41.9 Sepsis, unspecified organism (principal); I21.4 Non-ST elevation (NSTEMI) myocardial infarction; L89.154 Pressure ulcer of sacral region, stage 4; N18.6 End stage renal disease; R65.21 Severe sepsis with septic shock; J69.0 Pneumonitis due to inhalation of food and vomit; J96.01 Acute respiratory failure with hypoxia; I13.2 Hypertensive heart and chronic kidney disease with heart failure and with stage 5 chronic kidney disease, or end stage renal disease; I50.40 Unspecified combined systolic (congestive) and diastolic (congestive) heart failure; E87.20 Acidosis, unspecified; I46.9 Cardiac arrest, cause unspecified; E10.22 Type 1 diabetes mellitus with diabetic chronic kidney disease; I35.0 Nonrheumatic aortic (valve) stenosis; E05.00 Thyrotoxicosis with diffuse goiter without thyrotoxic crisis or storm; L89.629 Pressure ulcer of left heel, unspecified stage; B35.1 Tinea unguium; E10.51 Type 1 diabetes mellitus with diabetic peripheral angiopathy without gangrene; Z66 Do not resuscitate; R68.0 Hypothermia, not associated with low environmental temperature; I48.0 Paroxysmal atrial fibrillation; I25.10 Atherosclerotic heart disease of native coronary artery without angina pectoris; J44.9 Chronic obstructive pulmonary disease, unspecified; I25.2 Old myocardial infarction; E78.5 Hyperlipidemia, unspecified; N40.0 Benign prostatic hyperplasia without lower urinary tract symptoms; Z11.52 Encounter for screening for COVID-19; Z99.2 Dependence on renal dialysis; Z91.158 Patient's noncompliance with renal dialysis for other reason; Z87.01 Personal history of pneumonia (recurrent); Z86.14 Personal history of Methicillin resistant Staphylococcus aureus infection; Z87.891 Personal history of nicotine dependence; Z79.02 Long term (current) use of antithrombotics/antiplatelets; Z79.4 Long term (current) use of insulin; Z89.511 Acquired absence of right leg below knee; Z95.5 Presence of coronary angioplasty implant and graft; Z93.3 Colostomy status
CPT/HCPCS: 31500; 36416; 36556; 36600; 51702; 71045; 71275; 80051; 80053; 82330; 82803; 82805; 82962; 83605; 83735; 84100; 84145; 84443; 84484; 85025; 85378; 87040; 87070; 87077; 87150; 87186; 87205; 87635; 87804; 93005; 94002; 94640; 94799; 96365; 96366; 96367; 96375; 99291; 99292; A4570; C1751; C9113; J0171; J2250; J2543; J2598; J2704; J3010; J3370; J3490; J7030; J7050; J7070; Q3014; Q9967